=== PATIENT | female | born 1990 | race Caucasian/White ===

== ENCOUNTER 2018-02-12 16:45 | Emergency (ER) | payer OTHER ==
[2018-02-12] MEDS ORDERED: HYDROCODONE/APAP 5/325 MG TAB ONE (18:56)
[2018-02-12 19:10] LABS: Absolute Lymphocytes (CBC) 1.9 K/uL (0.7-4.9); Absolute Monocytes 0.8 K/uL (0.1-1.3); Absolute Neutrophil 8.8 K/uL (1.8-8.0); Basophils % 0.3 % (0-1.3); Eosinophils % 1.2 % (0-4.4); Hematocrit 37.8 % (36.0-45.0); Lymphocytes % 16.2 % (15.3-44.8); MCH 27.4 pg (27.0-35.0); MCV 85.5 fL (80-100); Monocytes % 6.6 % (3.3-12.3); RBC Red Blood Cell Count 4.42 M/uL (3.86-4.86)
[2018-02-12 19:43] LABS: ALT/SGPT 19 U/L (12-78); AST/SGOT 15 U/L (15-37); Albumin 3.2 g/dL (3.4-5.0); Alkaline Phosphatase 138 U/L (45-117); BUN Blood Urea Nitrogen 2 mg/dL (7-18); Bicarbonate 32 mmol/L (21-32); Bilirubin Direct < 0.1 mg/dL (0-0.2); Bilirubin Total 0.3 mg/dL (0.2-1.0); Glucose Level 111 mg/dL (74-106); Lipase 63 U/L (73-393); Potassium 3.6 mmol/L (3.5-5.1); Protein, Total 7.6 g/dL (6.4-8.2); Sodium Level 142 mmol/L (136-145)
[2018-02-12 19:58] LABS: Urine Blood TRACE (NEG); Urine Glucose NEGATIVE (NEG); Urine Protein NEGATIVE (NEG)
[2018-02-12 20:00] LABS: Urine Bacteria LOADED /HPF (<20); Urine Culture Reflex Order REFLEXED
[2018-02-12 20:01] LABS: Urine RBC <5 /HPF (NONE SEEN)
--- NOTE | 2018-02-12 20:26 | ER ---
Nurse's Notes [facility] Name: Shari Esterlla Age: 27 yrs Sex: Female : 1990 Arrival Date: 02/12/2018 Time: 16:48 Bed 16 Private MD: Diagnosis: Urinary tract infection, site not specified Presentation: 02/12 17:11 Presenting complaint: Patient states: Fever and N/V for 3 days. Patient reports aj multiple positive home tests, but reports that [facility] did blood work and ultrasound 2 days ago and found patient was not . Transition of care: patient was not received from another setting of care. Onset of symptoms was February 09, 2018. Risk Assessment: Do you want to hurt yourself or someone else? Patient reports no desire to harm self or others. Initial Sepsis Screen: Does the patient meet any 2 criteria? No. Patient's initial sepsis screen is negative. Does the patient have a suspected source of infection? No. Patient's initial sepsis screen is negative. Care prior to arrival: None. 17:11 Method Of Arrival: Wheelchair aj 17:11 Acuity: SAMAN 3 aj Triage Assessment: 17:14 General: Appears in no apparent distress. comfortable, Behavior is calm, cooperative, aj appropriate for age. Pain: Denies pain. Neuro: Level of Consciousness is awake, alert, obeys commands, Oriented to person, place, time, situation, Appropriate for age. Respiratory: Airway is patent Respiratory effort is even, unlabored, Respiratory pattern is regular, symmetrical. GI: Reports nausea, vomiting. Derm: Skin is intact, is healthy with good turgor, Skin is normal, Skin temperature is hot. 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 - Social history:: Smoking status: Patient/guardian denies using tobacco. - Ebola Screening: : Patient negative for fever greater than or equal to 101.5 degrees Fahrenheit, and additional compatible Ebola Virus Disease symptoms Patient denies exposure to infectious person Patient denies travel to an Ebola-affected area in the 21 days before illness onset No symptoms or risks identified at this time. Screenin:20 Abuse screen: Denies threats or abuse. Nutritional screening: No deficits noted. rb1 Tuberculosis screening: No symptoms or risk factors identified. Fall Risk None identified. Assessment: 17:20 General: Appears in no apparent distress. comfortable, Behavior is calm, cooperative, rb1 Reports fever for feeling ill for. Pain: Denies pain. Neuro: Level of Consciousness is awake, alert, obeys commands, Oriented to person, place, time, situation. Cardiovascular: Capillary refill < 3 seconds is brisk in bilateral fingers. Respiratory: Airway is patent Respiratory effort is even, unlabored, Respiratory pattern is regular, symmetrical. GI: Reports nausea, vomiting. : No signs and/or symptoms were reported regarding the genitourinary system. Derm: Skin is pink, warm \\T\\ dry. Musculoskeletal: pt. has spina-bifida. 17:20 General: pt. stated, "I went and had blood work done at [facility] 4 weeks and it came back rb1 saying that I was . I had an US done and it was negative for . I took 4 home tests and they were all positive.". 18:20 Reassessment: Patient appears in no apparent distress at this time. No changes from rb1 previously documented assessment. Updated on POC. 18:35 Reassessment: Called lab, spoke to Irene to come and draw blood. She stated, "I can come rb1 but it will be just a minute because I am alone right now.". 19:00 Reassessment: RECD REPORT FROM KAYDEN BRIZUELA. 27YO WF P/W FEVER/MALAISE/VOMITING AND H/O bp SPINA BIFIDA. UOP PENDING PT SELF CATH AND U/S IV PLACEMENT. PT SEEN AT [facility] AND GIVEN -U/S, BUT REPORTS MX +UPT AT HOME. 19:20 Reassessment: PER PROVIDER, PIV PLACEMENT ON HOLD PENDING LAB RESULTS. bp 20:02 Reassessment: ALL CURRENT ORDERS COMPLETED, UPT NEGATIVE ON POC, DISPO PENDING. bp 20:47 Reassessment: PT D/C HOME VIA W/C WITH FAMILY, DX WITH UTI. bp Vital Signs: 17:14 BP 143 / 102; Pulse 98; Resp 18; Temp 99.0; Pulse Ox 99% on R/A; Weight 38.56 kg (R); aj 18:09 BP 129 / 83; Pulse 94; Resp 19; Pulse Ox 100% ; rb1 19:10 BP 111 / 60; Pulse 95; Resp 16; Pulse Ox 100% ; bp 20:03 BP 114 / 80; Pulse 100; Resp 14; Pulse Ox 99% ; bp ED Course: 16:48 Patient arrived in ED. rg4 17:13 Triage completed. aj 17:14 Arm band placed on left wrist. Patient placed in an exam room. aj 17:20 Patient has correct armband on for positive identification. Bed in low position. Call rb1 light in reach. Side rails up X 1. Pulse ox on. NIBP on. 17:24 Ethan Bonilla PA is PHCP. jr8 17:24 Jose Jain MD is Attending Physician. jr8 17:26 Pepper Zuluaga, CHATA is Primary Nurse. rb1 18:05 Missed attempt(s): 22 gauge in left antecubital area. Bleeding controlled, band aid dh3 applied, catheter tip intact. 19:00 Report given to Juan Jose, CHATA. rb1 20:02 Juan Jose Irwin, RN is Primary Nurse. bp 20:48 No provider procedures requiring assistance completed. Patient did not have IV access bp during this emergency room visit. Administered Medications: 18:57 Drug: [place] 5 mg-325 mg 1 tabs Route: PO; rb1 19:09 Follow up: Response: Pain is decreased bp 20:50 Drug: Rocephin (cefTRIAXone) 1 grams Route: IM; Site: right gluteus; bp 20:51 Follow up: Response: No adverse reaction bp Outcome: 20:25 Discharge ordered by . jr8 20:48 Discharged to home via wheelchair, with family. bp 20:48 Condition: stable 20:48 Discharge instructions given to patient, family, Instructed on discharge instructions, follow up and referral plans. medication usage, Demonstrated understanding of instructions, follow-up care, medications, Prescriptions given X 2. 20:52 Patient left the ED. bp Addendum: 02/16/2018 08:04 Addendum: Culture Results: Positive urine culture. No further action required. Bacteria s s sensitive to prescribed antibiotic. Signatures: Zenaida Velazquez RN RN Laury Hurley RN RN Ethan Price PA PA jr8 Pepper Zuluaga RN RN rb1 Karen Lu rg4 Jacqui Deras 3 Juan Jose Irwin RN RN bp Corrections: (The following items were deleted from the chart) 02/12 19:21 19:00 Reassessment: RECD REPORT FROM CLAUDINE BRIZUELA. 27YO WF P/W FEVER/MALAISE/VOMITING AND bp H/O SPINA BIFIDA. UOP PENDING PT SELF CATH AND U/S IV PLACEMENT. PT SEEN AT [facility] AND GIVEN -U/S, BUT REPORTS MX +UPT AT HOME bp
--- NOTE | 2018-02-12 20:26 | EDPHYS ---
Physician Documentation [facility] Name: Shari Estrella Age: 27 yrs Sex: Female : 1990 Arrival Date: 02/12/2018 Time: 16:48 Bed 16 Private MD: ED Physician Jose Jain HPI: 02/12 18:24 This 27 yrs old Female presents to ER via Wheelchair with complaints of jr8 Fever, Vomiting. 18:24 The patient reports fever, not measured (subjective). Onset: The symptoms/episode jr8 began/occurred gradually, 3 day(s) ago. Modifying factors: there are no obvious modifying factors. Associated signs and symptoms: Pertinent positives: nausea, vomiting. Severity of symptoms: At their worst the symptoms were moderate in the emergency department the symptoms have improved. The patient has not experienced similar symptoms in the past. The patient has been recently seen by a physician:. Patient stated that she has been running fevers and has had n/v for 3 days. They thought it may be morning sickness. Has had tests showing both positive and negative. Had US done about 1 week ago with no intrauterine gestational sac seen. Denies abdominal discomfort. 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 - Social history:: Smoking status: Patient/guardian denies using tobacco. - Ebola Screening: : Patient negative for fever greater than or equal to 101.5 degrees Fahrenheit, and additional compatible Ebola Virus Disease symptoms Patient denies exposure to infectious person Patient denies travel to an Ebola-affected area in the 21 days before illness onset No symptoms or risks identified at this time. ROS: 18:24 Eyes: Negative for injury, pain, redness, and discharge, ENT: Negative for injury, jr8 pain, and discharge, Neck: Negative for injury, pain, and swelling, Cardiovascular: Negative for chest pain, palpitations, and edema, Respiratory: Negative for shortness of breath, cough, wheezing, and pleuritic chest pain, Back: Negative for injury and pain, MS/Extremity: Negative for injury and deformity, Skin: Negative for injury, rash, and discoloration, Neuro: Negative for headache, weakness, numbness, tingling, and seizure. 18:24 Constitutional: Positive for fever. 18:24 Abdomen/GI: Positive for nausea and vomiting, Negative for abdominal pain, diarrhea, abdominal distension, anorexia, dysphagia, hematemesis, black/tarry stool, rectal pain, rectal bleeding, bowel incontinence, flatulence. Exam: 18:24 Eyes: Pupils equal round and reactive to light, extra-ocular motions intact. Lids and jr8 lashes normal. Conjunctiva and sclera are non-icteric and not injected. Cornea within normal limits. Periorbital areas with no swelling, redness, or edema. ENT: Nares patent. No nasal discharge, no septal abnormalities noted. Tympanic membranes are normal and external auditory canals are clear. Oropharynx with no redness, swelling, or masses, exudates, or evidence of obstruction, uvula midline. Mucous membranes moist. Neck: Trachea midline, no thyromegaly or masses palpated, and no cervical lymphadenopathy. Supple, full range of motion without nuchal rigidity, or vertebral point tenderness. No Meningismus. Cardiovascular: Regular rate and rhythm with a normal S1 and S2. No gallops, murmurs, or rubs. Normal PMI, no JVD. No pulse deficits. Respiratory: Lungs have equal breath sounds bilaterally, clear to auscultation and percussion. No rales, rhonchi or wheezes noted. No increased work of breathing, no retractions or nasal flaring. Abdomen/GI: Soft, non-tender, with normal bowel sounds. No distension or tympany. No guarding or rebound. No evidence of tenderness throughout. Back: No spinal tenderness. No costovertebral tenderness. Full range of motion. Skin: Warm, dry with normal turgor. Normal color with no rashes, no lesions, and no evidence of cellulitis. open buttock wound with normal granulation tissue. No erythema or discharge from wound MS/ Extremity: Pulses equal, no cyanosis. Neurovascular intact. Full, normal range of motion. Neuro: Awake and alert, GCS 15, oriented to person, place, time, and situation. Cranial nerves II-XII grossly intact. Motor strength 5/5 in all extremities. Sensory grossly intact. Cerebellar exam normal. Normal gait. Vital Signs: 17:14 BP 143 / 102; Pulse 98; Resp 18; Temp 99.0; Pulse Ox 99% on R/A; Weight 38.56 kg (R); aj 18:09 BP 129 / 83; Pulse 94; Resp 19; Pulse Ox 100% ; rb1 19:10 BP 111 / 60; Pulse 95; Resp 16; Pulse Ox 100% ; bp 20:03 BP 114 / 80; Pulse 100; Resp 14; Pulse Ox 99% ; bp MDM: 17:24 Patient medically screened. jr8 20:24 Data reviewed: vital signs, nurses notes, lab test result(s), and as a result, I will jr8 discharge patient. Data interpreted: Pulse oximetry: on room air is 99 %. Interpretation: normal. Counseling: I had a detailed discussion with the patient and/or guardian regarding: the historical points, exam findings, and any diagnostic results supporting the discharge/admit diagnosis, lab results, the need for outpatient follow up, a family practitioner, to return to the emergency department if symptoms worsen or persist or if there are any questions or concerns that arise at home. 20:29 ED course: Patient with minimal elevation in WBC count. Able to tolerate PO fluids. No jr8 active vomiting here. No fever. Explained to family that there is no indication for admission at this point. Will give IM rocephin here and send home on antibiotics. After culture reports come back will adjust as needed. If worse to come back for further evaluation . 02/12 17:51 Order name: Basic Metabolic Panel; Complete Time: 20:23 02/12 17:51 Order name: CBC with Diff; Complete Time: 19:18 02/12 17:51 Order name: Hepatic Function; Complete Time: 20:23 02/12 17:51 Order name: Lipase; Complete Time: 20:23 02/12 17:51 Order name: Urine Microscopic Only; Complete Time: 20:23 02/12 17:51 Order name: Test, Serum; Complete Time: 20:23 02/12 19:35 Order name: Urine Dipstick--Ancillary (enter results); Complete Time: 20:23 ms 02/12 19:35 Order name: Urine --Ancillary (enter results); Complete Time: 20:23 ms 02/12 20:01 Order name: Urine Culture [facility] 02/12 17:51 Order name: Labs collected and sent; Complete Time: 19: 8 02/12 17:51 Order name: Urine Dipstick-Ancillary (obtain specimen); Complete Time: 19:19 8 02/12 17:51 Order name: Straight Cath - Urine; Complete Time: 19: Administered Medications: 18:57 Drug: [place] 5 mg-325 mg 1 tabs Route: PO; rb1 19:09 Follow up: Response: Pain is decreased bp 20:50 Drug: Rocephin (cefTRIAXone) 1 grams Route: IM; Site: right gluteus; bp 20:51 Follow up: Response: No adverse reaction bp Disposition: 02/13 06:57 Co-signature as Attending Physician, Jose Jain MD. rn Disposition: 02/12/18 20:25 Discharged to Home. Impression: Urinary tract infection, site not specified. - Condition is Stable. - Discharge Instructions: Urinary Tract Infection. - Prescriptions for Zofran 4 mg Oral Tablet - take 1 tablet by ORAL route every 12 hours As needed; 20 tablet. Macrobid 100 mg Oral Capsule - take 1 capsule by ORAL route every 12 hours for 7 days; 14 capsule. - Medication Reconciliation Form, Thank You Letter, Antibiotic Education, Prescription Opioid Use form. - Follow up: Private Physician; When: 5 - 6 days; Reason: Recheck today's complaints, Continuance of care, Re-evaluation by your physician. - Problem is new. - Symptoms have improved. Signatures: Dispatcher [employer] [facility] Zenaida Velazquez RN Jose Burris MD MD rn Roszak, Josh, PA PA jr8 Pepper Zuluaga RN RN rb1 Juan Jose Irwin RN RN bp Corrections: (The following items were deleted from the chart) 02/12 19:31 17:52 Creatinine for Radiology+C.LAB.BRZ ordered. [facility] EDSD 20:52 20:25 02/12/2018 20:25 Discharged to Home. Impression: Urinary tract infection, site bp not specified. Condition is Stable. Forms are Medication Reconciliation Form, Thank You Letter, Antibiotic Education, Prescription Opioid Use. Follow up: Private Physician; When: 5 - 6 days; Reason: Recheck today's complaints, Continuance of care, Re-evaluation by your physician. Problem is new. Symptoms have improved. jr8
[2018-02-12] MEDS ORDERED: CEFTRIAXONE 1000 MG/VIAL ONE (20:40)
[2018-02-12 21:10] VITALS: TEMP 99
[2018-02-12 21:13] VITALS: BP 114/80; O2SAT 99
== END 2018-02-12 20:52 | disposition home or self-care (01) ==
LOC: ER 16:45
DX: N39.0 Urinary tract infection, site not specified (principal); I10 Essential (primary) hypertension; Z88.1 Allergy status to other antibiotic agents; Z88.2 Allergy status to sulfonamides; Z88.8 Allergy status to other drugs, medicaments and biological substances; Z91.040 Latex allergy status
CPT/HCPCS: 80048; 80076; 81003; 81015; 81025; 83690; 84703; 85025; 87077; 87086; 87088; 87186; 96372; 99283

== ENCOUNTER 2018-02-15 15:04 | Emergency (ER) | payer OTHER ==
[2018-02-15] MEDS ORDERED: ONDANSETRON 4 MG (ODT) TAB ONE (16:04)
[2018-02-15] MEDS ORDERED: HYDROCODONE/APAP 5/325 MG TAB ONE (16:04)
[2018-02-15 16:40] LABS: Absolute Lymphocytes (CBC) 2.5 K/uL (0.7-4.9); Absolute Monocytes 0.8 K/uL (0.1-1.3); Absolute Neutrophil 4.8 K/uL (1.8-8.0); Basophils % 0.3 % (0-1.3); Eosinophils % 1.3 % (0-4.4); Hematocrit 37.6 % (36.0-45.0); Lymphocytes % 30.8 % (15.3-44.8); MCH 27.9 pg (27.0-35.0); MPV 7.9 fL (7.6-11.3); Monocytes % 9.6 % (3.3-12.3); RBC Red Blood Cell Count 4.42 M/uL (3.86-4.86)
[2018-02-15 17:51] LABS: ALT/SGPT 22 U/L (12-78); AST/SGOT 18 U/L (15-37); Albumin 3.5 g/dL (3.4-5.0); Alkaline Phosphatase 134 U/L (45-117); BUN Blood Urea Nitrogen 3 mg/dL (7-18); Bicarbonate 29 mmol/L (21-32); Bilirubin Total 0.2 mg/dL (0.2-1.0); Glucose Level 90 mg/dL (74-106); Potassium 4.2 mmol/L (3.5-5.1); Protein, Total 8.2 g/dL (6.4-8.2); Sodium Level 141 mmol/L (136-145)
--- NOTE | 2018-02-15 19:29 | EDPHYS ---
Physician Documentation [facility] Name: Shari Estrella Age: 27 yrs Sex: Female : 1990 Arrival Date: 02/15/2018 Time: 15:05 Bed 14 Private MD: ED Physician Eric Celestin HPI: 02/15 16:01 This 27 yrs old Female presents to ER via Ambulatory with complaints of pm1 Urinary Problem, Fever, Vomiting. 16:01 Onset: The symptoms/episode began/occurred 3 day(s) ago. Associated signs and symptoms: pm1 Pertinent positives: fever, vomiting, Pertinent negatives: abdominal pain, chest pain, dysuria, shortness of breath, Back pain. Modifying factors: The patient symptoms are alleviated by nothing, the patient symptoms are aggravated by nothing. The patient has experienced similar episodes in the past, multiple times. The patient has been recently seen at the [facility] Emergency Department, 2 days ago for the same complaint. 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 - Social history:: Smoking status: Patient/guardian denies using tobacco, Patient/guardian denies using alcohol. - Ebola Screening: : Patient negative for fever greater than or equal to 101.5 degrees Fahrenheit, and additional compatible Ebola Virus Disease symptoms Patient denies exposure to infectious person Patient denies travel to an Ebola-affected area in the 21 days before illness onset. ROS: 16:01 Eyes: Negative for injury, pain, redness, and discharge, ENT: Negative for injury, pm1 pain, and discharge, Neck: Negative for injury, pain, and swelling, Cardiovascular: Negative for chest pain, palpitations, and edema, Respiratory: Negative for shortness of breath, cough, wheezing, and pleuritic chest pain. 16:01 Back: Negative for injury and pain, : Negative for injury, bleeding, discharge, and swelling, MS/Extremity: Negative for injury and deformity, Skin: Negative for injury, rash, and discoloration, Neuro: Negative for headache, weakness, numbness, tingling, and seizure. 16:01 Constitutional: Positive for fever. 16:01 Abdomen/GI: Positive for nausea and vomiting, Negative for abdominal pain, diarrhea. Exam: 16:01 Constitutional: This is a well developed, well nourished patient who is awake, alert, pm1 and in no acute distress. Head/Face: Normocephalic, atraumatic. Eyes: Pupils equal round and reactive to light, extra-ocular motions intact. Lids and lashes normal. Conjunctiva and sclera are non-icteric and not injected. Cornea within normal limits. Periorbital areas with no swelling, redness, or edema. ENT: Nares patent. No nasal discharge, no septal abnormalities noted. Tympanic membranes are normal and external auditory canals are clear. Oropharynx with no redness, swelling, or masses, exudates, or evidence of obstruction, uvula midline. Mucous membranes moist. Neck: Trachea midline, no thyromegaly or masses palpated, and no cervical lymphadenopathy. Supple, full range of motion without nuchal rigidity, or vertebral point tenderness. No Meningismus. Chest/axilla: Normal chest wall appearance and motion. Nontender with no deformity. No lesions are appreciated. Cardiovascular: Regular rate and rhythm with a normal S1 and S2. No gallops, murmurs, or rubs. Normal PMI, no JVD. No pulse deficits. Respiratory: Lungs have equal breath sounds bilaterally, clear to auscultation and percussion. No rales, rhonchi or wheezes noted. No increased work of breathing, no retractions or nasal flaring. Abdomen/GI: Soft, non-tender, with normal bowel sounds. No distension or tympany. No guarding or rebound. No evidence of tenderness throughout. 16:01 Skin: Warm, dry with normal turgor. Normal color with no rashes, no lesions, and no evidence of cellulitis. MS/ Extremity: Pulses equal, no cyanosis. Neurovascular intact. Full, normal range of motion. 16:01 Back: pain, is absent, scoliosis that is marked, CVA tenderness, is absent, muscle spasm, is not present. 16:01 Neuro: Orientation: is normal, Motor: moves all fours. Vital Signs: 15:31 BP 137 / 96; Pulse 95; Resp 18; Temp 99.0(O); Pulse Ox 100% on R/A; Weight 36.29 kg; hj Height 3 ft. 6 in. (106.68 cm); Pain 5/10; 16:08 BP 135 / 95; Pulse 94; Resp 18; Pulse Ox 100% on R/A; hj 17:30 BP 112 / 72; Pulse 82; Resp 18; Pulse Ox 100% on R/A; hj 18:31 BP 112 / 71; Pulse 80; Resp 18; Pulse Ox 100% on R/A; hj 15:31 Body Mass Index 31.89 (36.29 kg, 106.68 cm) MDM: 15:41 Patient medically screened. pm1 16:01 Data reviewed: vital signs. Data interpreted: Pulse oximetry: on room air is 100 %. pm1 Interpretation: normal. 19:28 Counseling: I had a detailed discussion with the patient and/or guardian regarding: the pm1 historical points, exam findings, and any diagnostic results supporting the discharge/admit diagnosis, lab results, the need for outpatient follow up, to return to the emergency department if symptoms worsen or persist or if there are any questions or concerns that arise at home. 19:30 ED course: Patient without any episodes of vomiting in the emergency department. pm1 Patient labs improved from visit 2 days ago. Patient needs to continue taking macrobid. Urine culture results show sensitivity to macrobid. Will give patient phenergan. Patient has a prescription for zofran PRN. 02/15 15:55 Order name: CBC with Diff; Complete Time: 17:31 pm1 02/15 15:55 Order name: CMP; Complete Time: 17:52 pm1 02/15 15:55 Order name: IV Saline Lock; Complete Time: 17:46 pm1 02/15 15:55 Order name: PO challenge; Complete Time: 15:56 pm1 Administered Medications: 15:56 Drug: [place] 5 mg-325 mg 1 tabs Route: PO; 16:03 Follow up: Response: No adverse reaction; Pain is decreased 15:56 Drug: Zofran 4 mg Route: PO; 16:03 Follow up: Response: No adverse reaction Disposition: 02/15/18 19:29 Discharged to Home. Impression: Vomiting, Urinary tract infection, site not specified. - Condition is Stable. - Discharge Instructions: Urinary Tract Infection. - Prescriptions for Phenergan 25 mg Rectal Suppository - insert 1 suppository by RECTAL route every 6 hours As needed; 12 suppository. promethazine 25 mg Oral Tablet - take 1 tablet by ORAL route every 6 hours As needed; 20 tablet. - Medication Reconciliation Form, Thank You Letter, Antibiotic Education form. - Follow up: Emergency Department; When: As needed; Reason: Worsening of condition. Follow up: Private Physician; When: 2 - 3 days; Reason: Recheck today's complaints, Continuance of care, Re-evaluation by your physician. - Problem is new. - Symptoms have improved. - Notes: Continue taking the prescription of macrobid as directed Addendum: 02/17/2018 20:36 Co-signature as Attending Physician, Eric Celestin MD I agree with the assessment and k dr plan of care. Signatures: Dispatcher [employer] [facility] Eric Celestin MD MD [facility] Saúl Winn RN RN Williams Shelby NP [employer] pm1 Shell Pacheco RN RN ea Corrections: (The following items were deleted from the chart) 02/15 21:08 19:29 02/15/2018 19:29 Discharged to Home. Impression: Vomiting; Urinary tract ea infection, site not specified. Condition is Stable. Forms are Medication Reconciliation Form, Thank You Letter, Antibiotic Education, Prescription Opioid Use. Follow up: Emergency Department; When: As needed; Reason: Worsening of condition. Follow up: Private Physician; When: 2 - 3 days; Reason: Recheck today's complaints, Continuance of care, Re-evaluation by your physician. Problem is new. Symptoms have improved. pm1 02/16 04:26 02/15 19:30 ED course: Patient without any episodes of vomiting in the emergency pm1 department. Patient labs improved from visit 2 days ago. Patient needs to continue taking macrobid. Urine culture results Will give patient phenergan. Patient has a prescription for zofran PRN. pm1
--- NOTE | 2018-02-15 19:29 | ER ---
Nurse's Notes [facility] Name: Shari Estrella Age: 27 yrs Sex: Female : 1990 Arrival Date: 02/15/2018 Time: 15:05 Bed 14 Private MD: Diagnosis: Vomiting;Urinary tract infection, site not specified Presentation: 02/15 15:25 Presenting complaint: Patient states: i have UTI and was prescribed with antibiotics hj but im throwing it up; reports fever;. Transition of care: patient was not received from another setting of care. Onset of symptoms was February 15, 2018. Risk Assessment: Do you want to hurt yourself or someone else? Patient reports desire/thoughts of hurting themselves or someone else. Provider notified. Initial Sepsis Screen: Does the patient meet any 2 criteria? No. Patient's initial sepsis screen is negative. Does the patient have a suspected source of infection? Yes: Other: urine infection;. Care prior to arrival: None. 15:25 Method Of Arrival: Ambulatory hj 15:25 Acuity: SAMAN 3 hj 15:25 Acuity: SAMAN 3 hj Triage Assessment: 15:30 General: Appears in no apparent distress. uncomfortable, Behavior is calm, cooperative, hj appropriate for age. Pain: Complains of pain in pelvis. GI: Reports lower abdominal pain, nausea, vomiting. Historical: - Allergies: 15:29 Adhesives; hj 15:29 Bactrim; hj 15:29 Latex, Natural Rubber; hj 15:29 Sulfa (Sulfonamide Antibiotics); hj - Home Meds: 15:29 Atenolol Oral 1 tab once daily [Active]; losartan Oral 1 tab once daily [Active]; hj losartan Oral [Active]; meropenem intravenous [Active]; oxycodone [Active]; - PMHx: 15:29 Hypertension; spina-bifida; hj - PSHx: 15:29 SKIVER HEEL TAP shunt; Bladder suspension; spinal surgery; hj - Immunization history:: Adult Immunizations up to date. - Social history:: Smoking status: Patient/guardian denies using tobacco, Patient/guardian denies using alcohol. - Ebola Screening: : Patient negative for fever greater than or equal to 101.5 degrees Fahrenheit, and additional compatible Ebola Virus Disease symptoms Patient denies exposure to infectious person Patient denies travel to an Ebola-affected area in the 21 days before illness onset. Screenin:29 Abuse screen: Denies threats or abuse. Denies injuries from another. Nutritional hj screening: No deficits noted. Tuberculosis screening: No symptoms or risk factors identified. Fall Risk Secondary diagnosis (15 points) spina bifida. Assessment: 15:31 GI: Abdomen is non-distended. hj 15:32 Reassessment: see triage assessment;. hj 16:08 Reassessment: Patient and/or family updated on plan of care and expected duration. Pain hj level reassessed. Patient is alert, oriented x 3, equal unlabored respirations, skin warm/dry/pink. medicated;. 16:54 Reassessment: Patient and/or family updated on plan of care and expected duration. Pain hj level reassessed. Patient is alert, oriented x 3, equal unlabored respirations, skin warm/dry/pink. awaiting results and POC; family in room;. 17:30 Reassessment: Patient and/or family updated on plan of care and expected duration. Pain hj level reassessed. Patient is alert, oriented x 3, equal unlabored respirations, skin warm/dry/pink. awaiting POC;l. 18:31 Reassessment: Patient and/or family updated on plan of care and expected duration. Pain hj level reassessed. Patient is alert, oriented x 3, equal unlabored respirations, skin warm/dry/pink. family in room;. Vital Signs: 15:31 BP 137 / 96; Pulse 95; Resp 18; Temp 99.0(O); Pulse Ox 100% on R/A; Weight 36.29 kg; hj Height 3 ft. 6 in. (106.68 cm); Pain 5/10; 16:08 BP 135 / 95; Pulse 94; Resp 18; Pulse Ox 100% on R/A; hj 17:30 BP 112 / 72; Pulse 82; Resp 18; Pulse Ox 100% on R/A; hj 18:31 BP 112 / 71; Pulse 80; Resp 18; Pulse Ox 100% on R/A; hj 15:31 Body Mass Index 31.89 (36.29 kg, 106.68 cm) ED Course: 15:05 Patient arrived in ED. as 15:21 Saúl Winn RN is Primary Nurse. hj 15:27 Triage completed. hj 15:28 Williams Shelby NP is PHCP. pm1 15:28 Eric Celestin MD is Attending Physician. pm1 15:30 Arm band placed on. 15:31 Patient has correct armband on for positive identification. Placed in gown. Bed in low hj position. Call light in reach. Side rails up X 1. 16:14 missed attempt to collect labs by venipuncture 23G to right hand by me. 3 16:45 Initial lab(s) drawn, by me, sent to lab. Inserted saline lock: 24 gauge in left hj forearm, using aseptic technique. Blood collected. Administered Medications: 15:56 Drug: [place] 5 mg-325 mg 1 tabs Route: PO; hj 16:03 Follow up: Response: No adverse reaction; Pain is decreased 15:56 Drug: Zofran 4 mg Route: PO; hj 16:03 Follow up: Response: No adverse reaction Outcome: 19:29 Discharge ordered by . pm1 21:08 Patient left the ED. mere Signatures: Earl Fagan RN Yuliya Wyatt Henry, RN RN Williams Shelby NP NURSING PROFESSOR pm1 Jacqui Deras [facility] Shell Pacheco RN RN ea
[2018-02-15 21:18] VITALS: O2SAT 100
[2018-02-15 21:20] VITALS: TEMP 99
[2018-02-15 21:22] VITALS: BP 112/71
== END 2018-02-15 21:08 | disposition home or self-care (01) ==
LOC: ER 15:04
DX: N39.0 Urinary tract infection, site not specified (principal); R11.10 Vomiting, unspecified; I10 Essential (primary) hypertension; Z88.1 Allergy status to other antibiotic agents; Z88.2 Allergy status to sulfonamides; Z91.040 Latex allergy status; Z91.048 Other nonmedicinal substance allergy status
CPT/HCPCS: 36415; 80053; 85025; 99283

== ENCOUNTER 2018-03-14 12:39 | Emergency (ER) | payer OTHER ==
[2018-03-14 13:23] LABS: Urine Blood 2+ (NEG); Urine Glucose NEGATIVE (NEG); Urine Protein NEGATIVE (NEG); Urine pH 8.5 (5.0-7.0)
[2018-03-14 13:31] LABS: Urine Bacteria <20 /HPF (<20); Urine Culture Reflex Order NOT NEEDED; Urine Mucus 1+ /HPF (NONE SEEN)
--- NOTE | 2018-03-14 13:45 | EDPHYS ---
Physician Documentation [facility] Name: Shari Estrella Age: 27 yrs Sex: Female : 1990 Arrival Date: 03/14/2018 Time: 12:42 Bed 13 Private MD: ED Physician Jose Jain HPI: 03/14 13:40 This 27 yrs old Female presents to ER via Wheelchair with complaints of rn Fever, Vomiting. 13:40 The patient reports fever, not measured (subjective). Onset: The symptoms/episode rn began/occurred at an unknown time. Modifying factors: there are no obvious modifying factors. Severity of symptoms: At their worst the symptoms were mild in the emergency department the symptoms are unchanged. The patient has experienced similar episodes in the past. Reports has spina bifida, self caths, reports subjective fever and vomiting over last few days, thinks has UTI, dark urine, states doesn't feel like recovered fully from UTI last month.. 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 - Social history:: Smoking status: Patient/guardian denies using tobacco. - Ebola Screening: : Patient negative for fever greater than or equal to 101.5 degrees Fahrenheit, and additional compatible Ebola Virus Disease symptoms Patient denies exposure to infectious person Patient denies travel to an Ebola-affected area in the 21 days before illness onset No symptoms or risks identified at this time. - Family history:: not pertinent. - Hospitalizations: : No recent hospitalization is reported. 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 Exam: 13:40 Constitutional: This is a well developed, well nourished patient who is awake, alert, rn and in no acute distress. Abdomen/GI: Soft, non-tender, with normal bowel sounds. No distension or tympany. No guarding or rebound. No evidence of tenderness throughout. Back: No spinal tenderness. No costovertebral tenderness. Full range of motion. Vital Signs: 12:48 BP 148 / 102; Pulse 89; Resp 18; Temp 98.5; Pulse Ox 97% on R/A; Weight 38.56 kg; aj 13:59 BP 135 / 89; Pulse 85; Resp 18; Pulse Ox 100% on R/A; la1 MDM: 12:50 Patient medically screened. rn 13:40 Differential diagnosis: UTI. Data reviewed: vital signs, nurses notes, lab test rn result(s), and as a result, I will discharge patient. Counseling: I had a detailed discussion with the patient and/or guardian regarding: the historical points, exam findings, and any diagnostic results supporting the discharge/admit diagnosis, the need for outpatient follow up, to return to the emergency department if symptoms worsen or persist or if there are any questions or concerns that arise at home. Special discussion: I discussed with the patient/guardian in detail that at this point there is no indication for admission to the hospital. It is understood, however, that if the symptoms persist or worsen the patient needs to return immediately for re-evaluation. 13:40 ED course: Last 2 urine cultures show susceptible to augmentin and macrobid.. rn 03/14 12:59 Order name: Urine Microscopic Only; Complete Time: 13:35 rn 03/14 12:59 Order name: Urine Culture rn 03/14 12:59 Order name: Urine Dipstick-Ancillary (obtain specimen); Complete Time: 13:56 rn 03/14 13:16 Order name: Urine Dipstick--Ancillary (enter results); Complete Time: 13:35 bd 03/14 13:16 Order name: Urine --Ancillary (enter results); Complete Time: 13:35 bd 03/14 12:59 Order name: Urine Test (obtain specimen); Complete Time: 13:56 rn Administered Medications: 13:55 Drug: Zofran 4 mg Route: PO; 13:55 Follow up: Response: No adverse reaction; Nausea is decreased Disposition: 03/14/18 13:45 Discharged to Home. Impression: Urinary tract infection, site not specified. - Condition is Stable. - Discharge Instructions: Urinary Tract Infection, Adult. - Prescriptions for Zofran ODT 4 mg Oral tablet,disintegrating - place 1 tablet by TRANSLINGUAL route every 8-10 hours As needed; 20 tablet. Augmentin 875- 125 mg Oral Tablet - take 1 tablet by ORAL route every 12 hours for 10 days; 20 tablet. Macrobid 100 mg Oral Capsule - take 1 capsule by ORAL route every 12 hours for 10 days; 20 capsule. - Medication Reconciliation Form, Thank You Letter, Antibiotic Education, Prescription Opioid Use form. - Follow up: Private Physician; When: As needed; Reason: Recheck today's complaints, Re-evaluation by your physician. - Problem is new. - Symptoms have improved. Signatures: Dispatcher [employer] EDMS Leatha Lofton RN RN ch Myers, Amanda, RN RN aj Nieto, Roman, MD MD rn Joaquin, Henry, RN RN hj Corrections: (The following items were deleted from the chart) 14:00 13:45 03/14/2018 13:45 Discharged to Home. Impression: Urinary tract infection, site ch not specified. Condition is Stable. Forms are Medication Reconciliation Form, Thank You Letter, Antibiotic Education, Prescription Opioid Use. Follow up: Private Physician; When: As needed; Reason: Recheck today's complaints, Re-evaluation by your physician. Problem is new. Symptoms have improved. rn
--- NOTE | 2018-03-14 13:45 | ER ---
Nurse's Notes [facility] Name: Shari Estrella Age: 27 yrs Sex: Female : 1990 Arrival Date: 03/14/2018 Time: 12:42 Bed 13 Private MD: Diagnosis: Urinary tract infection, site not specified Presentation: 03/14 12:47 Presenting complaint: Patient states: "I have a UTI for 2 days". Transition of care: aj patient was not received from another setting of care. Onset of symptoms was March 12, 2018. Risk Assessment: Do you want to hurt yourself or someone else? Patient reports no desire to harm self or others. Initial Sepsis Screen: Does the patient meet any 2 criteria? No. Patient's initial sepsis screen is negative. Does the patient have a suspected source of infection? No. Patient's initial sepsis screen is negative. Care prior to arrival: None. 12:47 Method Of Arrival: Wheelchair 12:47 Acuity: SAMAN 4 aj Triage Assessment: 12:48 General: Appears in no apparent distress. comfortable, Behavior is calm, cooperative, aj appropriate for age. Pain: Denies pain. Neuro: Level of Consciousness is awake, alert, obeys commands, Oriented to person, place, time, situation, Appropriate for age. Respiratory: Airway is patent Respiratory effort is even, unlabored, Respiratory pattern is regular, symmetrical. GI: Reports nausea. Derm: Skin is intact, is healthy with good turgor, Skin is pink, warm \\T\\ dry. normal. 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 - Social history:: Smoking status: Patient/guardian denies using tobacco. - Ebola Screening: : Patient negative for fever greater than or equal to 101.5 degrees Fahrenheit, and additional compatible Ebola Virus Disease symptoms Patient denies exposure to infectious person Patient denies travel to an Ebola-affected area in the 21 days before illness onset No symptoms or risks identified at this time. - Family history:: not pertinent. - Hospitalizations: : No recent hospitalization is reported. Screenin:26 Abuse screen: Denies threats or abuse. Denies injuries from another. Nutritional ch screening: No deficits noted. Tuberculosis screening: No symptoms or risk factors identified. Fall Risk None identified. Assessment: 13:26 Reassessment: Patient appears in no apparent distress at this time. Patient and/or ch family updated on plan of care and expected duration. Pain level reassessed. Patient is alert, oriented x 3, equal unlabored respirations, skin warm/dry/pink. Respiratory: No deficits noted. GI: Abdomen is round non-distended. : No signs and/or symptoms were reported regarding the genitourinary system. Derm: Skin is pink, warm \\T\\ dry. Vital Signs: 12:48 BP 148 / 102; Pulse 89; Resp 18; Temp 98.5; Pulse Ox 97% on R/A; Weight 38.56 kg; aj 13:59 BP 135 / 89; Pulse 85; Resp 18; Pulse Ox 100% on R/A; la1 ED Course: 12:42 Patient arrived in ED. rg4 12:47 Triage completed. aj 12:48 Arm band placed on left wrist. Patient placed in an exam room. aj 12:50 Jose Jain MD is Attending Physician. rn 12:53 Leatha Lofton RN is Primary Nurse. 13:26 Patient has correct armband on for positive identification. Placed in gown. Bed in low ch position. Call light in reach. Side rails up X 1. Adult w/ patient. 13:26 No provider procedures requiring assistance completed. ch 13:59 Patient did not have IV access during this emergency room visit. la1 Administered Medications: 13:55 Drug: Zofran 4 mg Route: PO; hj 13:55 Follow up: Response: No adverse reaction; Nausea is decreased hj Outcome: 13:45 Discharge ordered by . rn 13:59 Discharged to home via wheelchair, with family. la1 13:59 Condition: stable 13:59 Discharge instructions given to patient, family, Instructed on discharge instructions, follow up and referral plans. medication usage, Demonstrated understanding of instructions, follow-up care, medications, Prescriptions given X 3. 14:00 Patient left the ED. Addendum: 03/17/2018 07:37 Addendum: Culture Results: Positive urine culture. No further action required. Bacteria h b sensitive to prescribed antibiotic. Signatures: Leatha Lofton RN RN ch Myers, Amanda, RN RN aj Nieto, Roman, MD MD rn Attema, Lee, RN RN la1 Saúl Winn RN RN Eli Lewis RN RN hb Garcia, Rubi rg4
[2018-03-14] MEDS ORDERED: ONDANSETRON 4 MG (ODT) TAB ONE (14:01)
[2018-03-14 14:22] VITALS: TEMP 98.5
[2018-03-14 14:23] VITALS: BP 135/89; O2SAT 100
== END 2018-03-14 14:00 | disposition home or self-care (01) ==
LOC: ER 12:39
DX: N39.0 Urinary tract infection, site not specified (principal); Z88.1 Allergy status to other antibiotic agents; Z91.040 Latex allergy status; Z88.2 Allergy status to sulfonamides; Z91.048 Other nonmedicinal substance allergy status; I10 Essential (primary) hypertension; Q05.9 Spina bifida, unspecified
CPT/HCPCS: 81003; 81015; 81025; 87077; 87086; 87088; 87186; 99283

== ENCOUNTER 2018-07-09 20:21 | Emergency (ER) | payer OTHER ==
--- OUTSIDE RECORDS SUMMARY | 2018-07-09 20:23 | XMS REPORT ---
:1990 [facility] Address [address] [place] [address] Dr. Chavarria [address] [place] [id number] Care Team Providers Name Role Phone Unavailable Unavailable Unavailable Problems This patient has no known problems. Allergies, Adverse Reactions, Alerts This patient has no known allergies or adverse reactions. Medications This patient has no known medications.
--- NOTE | 2018-07-09 22:09 | RAD REPORT ---
EXAM DESCRIPTION: CT - Head C Spine Mpr Wo Con - 07/09/2018 9:54 pm CLINICAL HISTORY: Head and neck injury status post fall. Head and neck pain COMPARISON: Head CT 2016 TECHNIQUE: Computed axial tomography of the head and cervical spine was obtained. Sagittal and coronal reconstruction was performed. All CT scans are performed using dose optimization technique as appropriate and may include automated exposure control or mA/KV adjustment according to patient size. 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 Right ventriculostomy tube are unchanged in position. An intracranial bleed is not seen. The ventricles are mildly diminished in caliber. An extra-axial fl uid collection is not noted.Fluid within the visualized sinuses and mastoids is not seen A cervical fracture is not visualized. No dislocation is noted. 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 A cervical fracture is not visualized. If the patient continues to have symptoms to suggest intracra nial /spinal cord pathology then MRI would be recommended
--- NOTE | 2018-07-09 22:47 | EDPHYS ---
Physician Documentation [facility] Name: Shari Estrelal Age: 28 yrs Sex: Female : 1990 Arrival Date: 07/09/2018 Time: 20:25 Bed 17 Private MD: ED Physician Carlos Trotter HPI: 07/09 22:33 This 28 yrs old Female presents to ER via Wheelchair with complaints of Head wa Injury-Adult, Fall Injury. 22:33 The patient or guardian reports injury. The complaints affect the face. 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 - Ebola Screening: : Patient negative for fever greater than or equal to 101.5 degrees Fahrenheit, and additional compatible Ebola Virus Disease symptoms Patient denies exposure to infectious person Patient denies travel to an Ebola-affected area in the 21 days before illness onset No symptoms or risks identified at this time. - Social history:: Smoking status: Patient/guardian denies using tobacco, never smoked. - Family history:: not pertinent. - Hospitalizations: : No recent hospitalization is reported. ROS: 22:41 Constitutional: Negative for fever, chills, and weight loss, Eyes: Negative for injury, wa pain, redness, and discharge, ENT: Negative for injury, pain, and discharge, Neck: Negative for injury, pain, and swelling, Cardiovascular: Negative for chest pain, palpitations, and edema, Respiratory: Negative for shortness of breath, cough, wheezing, and pleuritic chest pain, Abdomen/GI: Negative for abdominal pain, nausea, vomiting, diarrhea, and constipation, Back: Negative for injury and pain, : Negative for injury, bleeding, discharge, and swelling, MS/Extremity: Negative for injury and deformity, Skin: Negative for injury, rash, and discoloration, Psych: Negative for depression, anxiety, suicide ideation, homicidal ideation, and hallucinations. 22:41 Neuro: Positive for Negative for altered mental status, dizziness, gait disturbance, headache, loss of consciousness, weakness. 22:41 All other systems are negative. Exam: 22:41 Constitutional: This is a well developed, well nourished patient who is awake, alert, wa and in no acute distress. Eyes: Pupils equal round and reactive to light, extra-ocular motions intact. Lids and lashes normal. Conjunctiva and sclera are non-icteric and not injected. Cornea within normal limits. Periorbital areas with no swelling, redness, or edema. ENT: Nares patent. No nasal discharge, no septal abnormalities noted. Tympanic membranes are normal and external auditory canals are clear. Oropharynx with no redness, swelling, or masses, exudates, or evidence of obstruction, uvula midline. Mucous membranes moist. Neck: Trachea midline, no thyromegaly or masses palpated, and no cervical lymphadenopathy. Supple, full range of motion without nuchal rigidity, or vertebral point tenderness. No Meningismus. Chest/axilla: Normal chest wall appearance and motion. Nontender with no deformity. No lesions are appreciated. Cardiovascular: Regular rate and rhythm with a normal S1 and S2. No gallops, murmurs, or rubs. Normal PMI, no JVD. No pulse deficits. Respiratory: Lungs have equal breath sounds bilaterally, clear to auscultation and percussion. No rales, rhonchi or wheezes noted. No increased work of breathing, no retractions or nasal flaring. Abdomen/GI: Soft, non-tender, with normal bowel sounds. No distension or tympany. No guarding or rebound. No evidence of tenderness throughout. Back: No spinal tenderness. No costovertebral tenderness. Full range of motion. Skin: Warm, dry with normal turgor. Normal color with no rashes, no lesions, and no evidence of cellulitis. MS/ Extremity: Pulses equal, no cyanosis. Neurovascular intact. Full, normal range of motion. Neuro: Awake and alert, GCS 15, oriented to person, place, time, and situation. Cranial nerves II-XII grossly intact. Motor strength 5/5 in all extremities. Sensory grossly intact. Cerebellar exam normal. Normal gait. Psych: Awake, alert, with orientation to person, place and time. Behavior, mood, and affect are within normal limits. 22:41 Head/face: Exam is negative for acute changes, obvious evidence of injury or deformity, Noted is erythema, of the nose. Vital Signs: 20:34 BP 140 / 92; Pulse 119; Resp 18; Temp 98.1; Pulse Ox 97% on R/A; Weight 35.83 kg (R); ak1 Height 5 ft. (152.40 cm); Pain 5/10; 22:32 BP 138 / 90; Pulse 104; Resp 16; Pulse Ox 98% on R/A; Pain 0/10; ls4 20:34 Body Mass Index 15.43 (35.83 kg, 152.40 cm) ak1 Roselyn Coma Score: 20:32 Eye Response: spontaneous(4). Verbal Response: oriented(5). Motor Response: obeys ak1 commands(6). Total: 15. MDM: 21:06 Patient medically screened. wa 22:42 Differential diagnosis: h/o paraplegia, wheelchair bound. per family, fell face forward wa when hit a bump while in the wheelchair. pt's chair has no belt to hold her in when in motion. Data reviewed: vital signs, nurses notes. ED course: head and c-spine CT to eval shunt integrity and r/o acute findings. 22:45 Test interpretation: by ED physician or midlevel provider: Head CT: no acute process. wa c-spine CT: no acute process. Response to treatment: the patient's symptoms have markedly improved after treatment. 07/09 21:22 Order name: CT Head C Spine; Complete Time: 22:16 wa Administered Medications: No medications were administered Disposition: 07/09/18 22:47 Discharged to Home. Impression: fall. , Facial Injury. - Condition is Stable. - Discharge Instructions: Head Injury, Adult, [id number]. - Medication Reconciliation Form, Thank You Letter, Antibiotic Education, Prescription Opioid Use form. - Follow up: Private Physician; When: 1 - 2 days; Reason: Recheck today's complaints. - Problem is new. - Symptoms have improved. - Notes: please secure her in place in the wheelchair while in motion or this will happen again. Signatures: Dispatcher [employer] Krystal Ge, RN RN ak1 Carlos Trotter MD MD wa Stewart, Lisa RN RN ls4 Corrections: (The following items were deleted from the chart) 22:55 22:47 07/09/2018 22:47 Discharged to Home. Impression: fall. ; Facial Injury. Condition ls4 is Stable. Forms are Medication Reconciliation Form, Thank You Letter, Antibiotic Education, Prescription Opioid Use. Follow up: Private Physician; When: 1 - 2 days; Reason: Recheck today's complaints. Problem is new. Symptoms have improved. laina
--- NOTE | 2018-07-09 22:47 | ER ---
Nurse's Notes [facility] Name: Shari Estrella Age: 28 yrs Sex: Female : 1990 Arrival Date: 07/09/2018 Time: 20:25 Bed 17 Private MD: Diagnosis: fall. ;Facial Injury Presentation: 07/09 20:32 Presenting complaint: Patient states: fell from wheelchair on street. pt denies LOC, ak1 denies N/V. pt with shunt in place, mother concerned. pt legs were twisted under her during fall, mother concerned pt with fx to bilateral legs. pt c/o only of nose pain. pt with abrasions to nose and left side of head. Transition of care: patient was not received from another setting of care. Mechanism of Injury: resulted from a fall. Onset of symptoms was July 09, 2018. Risk Assessment: Do you want to hurt yourself or someone else? Patient reports no desire to harm self or others. Initial Sepsis Screen: Does the patient meet any 2 criteria? No. Patient's initial sepsis screen is negative. Does the patient have a suspected source of infection? No. Patient's initial sepsis screen is negative. Care prior to arrival: None. 20:32 Method Of Arrival: Wheelchair ak1 20:32 Acuity: SAMAN 3 ak1 Triage Assessment: 20:34 General: Appears in no apparent distress. Behavior is calm, cooperative. Neuro: Level ak1 of Consciousness is awake, alert, obeys commands, Oriented to person, place, time, situation, Speech is normal. 21:42 Neuro: Reports denies headache, dizziness,nausea, vomiting. . 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 - Ebola Screening: : Patient negative for fever greater than or equal to 101.5 degrees Fahrenheit, and additional compatible Ebola Virus Disease symptoms Patient denies exposure to infectious person Patient denies travel to an Ebola-affected area in the 21 days before illness onset No symptoms or risks identified at this time. - Social history:: Smoking status: Patient/guardian denies using tobacco, never smoked. - Family history:: not pertinent. - Hospitalizations: : No recent hospitalization is reported. Screenin:50 Abuse screen: Denies threats or abuse. Denies injuries from another. Nutritional ls4 screening: No deficits noted. Tuberculosis screening: No symptoms or risk factors identified. Fall Risk Fall in past 12 months (25 points). Secondary diagnosis (15 points) No IV (0 pts). Ambulatory Aid- None/Bed Rest/Nurse Assist (0 pts). Gait- Normal/Bed Rest/Wheelchair (0 pts) Mental Status- Oriented to own ability (0 pts). Total Aburto Fall Scale indicates Low Risk Score (25-44 pts). Fall prevention measures have been instituted. Side Rails Up X 2 Placed close to Nursing Station Frequent Obs/Assesments occuring Family Present and informed to notify staff if they need to leave bedside As available Patient and Family Educated on Fall Prevention Program and strategies. Assessment: 20:48 General: Appears in no apparent distress. Behavior is calm, cooperative. Pain: Denies ls4 pain. Neuro: No deficits noted. Cardiovascular: No deficits noted. Respiratory: No deficits noted. GI: No deficits noted. : No deficits noted. Derm: ABRASION TO NOSE. Musculoskeletal: Parent/caregiver report the patient having PT CANNOT FEEL LEGS SO CONCERNED THAT PT MAY HAVE HURT LEGS AND CANT FEEL THAT. 21:41 Reassessment: Patient appears in no apparent distress at this time. Patient and/or ls4 family updated on plan of care and expected duration. Pain level reassessed. Patient is alert, oriented x 3, equal unlabored respirations, skin warm/dry/pink. General: Appears in no apparent distress. 22:32 Reassessment: Patient appears in no apparent distress at this time. Patient and/or ls4 family updated on plan of care and expected duration. Pain level reassessed. Patient is alert, oriented x 3, equal unlabored respirations, skin warm/dry/pink. Vital Signs: 20:34 BP 140 / 92; Pulse 119; Resp 18; Temp 98.1; Pulse Ox 97% on R/A; Weight 35.83 kg (R); ak1 Height 5 ft. (152.40 cm); Pain 5/10; 22:32 BP 138 / 90; Pulse 104; Resp 16; Pulse Ox 98% on R/A; Pain 0/10; ls4 20:34 Body Mass Index 15.43 (35.83 kg, 152.40 cm) ak1 Roselyn Coma Score: 20:32 Eye Response: spontaneous(4). Verbal Response: oriented(5). Motor Response: obeys ak1 commands(6). Total: 15. ED Course: 20:25 Patient arrived in ED. ds1 20:33 Triage completed. ak1 20:34 Arm band placed on Patient placed in an exam room, Patient notified of wait time. ak1 20:48 Katina Nice, RN is Primary Nurse. ls4 20:50 No apparent distress. Awaiting ED provider evaluation. ls4 20:50 Patient has correct armband on for positive identification. Allergy band placed. Fall ls4 risk band placed. Call light in reach. Side rails up X2. Adult w/ patient. Warm blanket given. 20:50 No provider procedures requiring assistance completed. ls4 21:06 Carlos Trotter MD is Attending Physician. dc 21:53 CT Head C Spine In Process Unspecified. EDNM 21:54 CT completed. Patient tolerated procedure well. Patient moved to [place]. Patient moved back [place] from CT. 22:55 Patient did not have IV access during this emergency room visit. ls4 Administered Medications: No medications were administered Outcome: 22:47 Discharge ordered by . wa 22:53 Discharged to home via wheelchair. ls4 22:53 Condition: stable 22:53 Discharge instructions given to patient, family, Instructed on discharge instructions, follow up and referral plans. medication usage, safety practices, Demonstrated understanding of instructions, follow-up care, wound care. 22:55 Patient left the ED. ls4 Signatures: Dispatcher [employer] EDNM EdwardsBrielle davis ds1 Krystal Frank RN RN ak Jeffery, Robert nj Sergo, Carlos, MD MD wa [place], Katina, RN RN ls4
[2018-07-09 23:48] VITALS: TEMP 98.1
[2018-07-09 23:50] VITALS: BP 138/90; O2SAT 98
== END 2018-07-09 22:55 | disposition home or self-care (01) ==
LOC: ER 20:21
DX: S09.93XA Unspecified injury of face, initial encounter (principal); V00.811A Fall from moving wheelchair (powered), initial encounter; Q05.9 Spina bifida, unspecified; I10 Essential (primary) hypertension; Z79.899 Other long term (current) drug therapy
CPT/HCPCS: 70450; 72125; 99284

== ENCOUNTER 2019-07-28 20:24 | Inpatient (IN) | payer OTHER ==
--- OUTSIDE RECORDS SUMMARY | 2019-07-28 20:26 | XMS REPORT ---
:1990 Author [facility] Address [facility], [address] Chavarria [address] [place] [id number] Care Team Providers Name Role Phone Unavailable Unavailable Unavailable Problems This patient has no known problems. Allergies, Adverse Reactions, Alerts This patient has no known allergies or adverse reactions. Medications This patient has no known medications.
[2019-07-28 21:21] LABS: Urine Bacteria 20-50 /HPF (<20); Urine Culture Reflex Order NOT NEEDED; Urine Mucus 1+ /HPF (NONE SEEN); Urine RBC <5 /HPF (NONE SEEN)
[2019-07-28 21:21] LABS: Urine Blood NEGATIVE (NEG); Urine Glucose NEGATIVE (NEG); Urine Protein NEGATIVE (NEG); Urine Specific Gravity <1.005 (1.005-1.030); Urine pH 6.5 (5.0-7.0)
[2019-07-28] MEDS ORDERED: NA CHLORIDE 0.9% 1,000 ML ONE (22:25)
[2019-07-28] MEDS ORDERED: Meropenem 1 GM/100 ML BAG ONE (22:25)
--- NOTE | 2019-07-28 22:41 | EDPHYS ---
Physician Documentation [facility] Name: Shari Estrella Age: 29 yrs Sex: Female : 1990 Arrival Date: 07/28/2019 Time: 20:27 Bed 28 Private MD: ED Physician Joel Ariza HPI: 07/28 22:36 This 29 yrs old Female presents to ER via Wheelchair with complaints of Pain ira With Urination. 22:36 The patient presents with abdominal pain in the lower abdomen, abdominal distention in ira the upper abdomen, in the lower abdomen. Onset: The symptoms/episode began/occurred 1 day(s) ago. The patient complains of pain in the low back area, left mid back, right mid back and right low back. The pain does not radiate. Onset: The symptoms/episode began/occurred 2 day(s) ago. Modifying factors: The symptoms are alleviated by nothing. the symptoms are aggravated by nothing. The patient presents to the emergency department with nausea, vomiting. Possible causes: uiti, pyelo. 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 - Social history:: Smoking status: Patient/guardian denies using tobacco. - Ebola Screening: : Patient denies travel to an Ebola-affected area in the 21 days before illness onset. - Family history:: not pertinent. ROS: 22:36 Constitutional: Negative for fever, chills, and weight loss, Eyes: Negative for injury, ira pain, redness, and discharge, ENT: Negative for injury, pain, and discharge, Neck: Negative for injury, pain, and swelling, Cardiovascular: Negative for chest pain, palpitations, and edema, Respiratory: Negative for shortness of breath, cough, wheezing, and pleuritic chest pain, Back: Negative for injury and pain, : Negative for injury, bleeding, discharge, and swelling, MS/Extremity: Negative for injury and deformity, Skin: Negative for injury, rash, and discoloration, Neuro: Negative for headache, weakness, numbness, tingling, and seizure, Psych: Negative for depression, anxiety, suicide ideation, homicidal ideation, and hallucinations, Allergy/Immunology: Negative for hives, rash, and allergies, Endocrine: Negative for neck swelling, polydipsia, polyuria, polyphagia, and marked weight changes, Hematologic/Lymphatic: Negative for swollen nodes, abnormal bleeding, and unusual bruising. 22:36 Abdomen/GI: Positive for abdominal pain, nausea, vomiting. Exam: 22:36 Constitutional: This is a well developed, well nourished patient who is awake, alert, ira and in no acute distress. Head/Face: Normocephalic, atraumatic. Eyes: Pupils equal round and reactive to light, extra-ocular motions intact. Lids and lashes normal. Conjunctiva and sclera are non-icteric and not injected. Cornea within normal limits. Periorbital areas with no swelling, redness, or edema. ENT: Nares patent. No nasal discharge, no septal abnormalities noted. Tympanic membranes are normal and external auditory canals are clear. Oropharynx with no redness, swelling, or masses, exudates, or evidence of obstruction, uvula midline. Mucous membranes moist. Neck: Trachea midline, no thyromegaly or masses palpated, and no cervical lymphadenopathy. Supple, full range of motion without nuchal rigidity, or vertebral point tenderness. No Meningismus. Chest/axilla: Normal chest wall appearance and motion. Nontender with no deformity. No lesions are appreciated. Cardiovascular: Regular rate and rhythm with a normal S1 and S2. No gallops, murmurs, or rubs. Normal PMI, no JVD. No pulse deficits. Respiratory: Lungs have equal breath sounds bilaterally, clear to auscultation and percussion. No rales, rhonchi or wheezes noted. No increased work of breathing, no retractions or nasal flaring. Abdomen/GI: Soft, non-tender, with normal bowel sounds. No distension or tympany. No guarding or rebound. No evidence of tenderness throughout. Back: No spinal tenderness. No costovertebral tenderness. Full range of motion. Skin: Warm, dry with normal turgor. Normal color with no rashes, no lesions, and no evidence of cellulitis. MS/ Extremity: Pulses equal, no cyanosis. Neurovascular intact. Full, normal range of motion. Neuro: Awake and alert, GCS 15, oriented to person, place, time, and situation. Cranial nerves II-XII grossly intact. Motor strength 5/5 in all extremities. Sensory grossly intact. Cerebellar exam normal. Normal gait. Psych: Awake, alert, with orientation to person, place and time. Behavior, mood, and affect are within normal limits. Vital Signs: 20:34 BP 131 / 101; Pulse 108; Resp 20; Temp 97.5; Pulse Ox 99% on R/A; Weight 29.48 kg (R); [facility] Height 4 ft. 0 in. (121.92 cm) (R); Pain 8/10; 07/29 00:48 BP 128 / 96; Pulse 97; Resp 18; Pulse Ox 100% on R/A; rv 07/28 20:34 Body Mass Index 19.83 (29.48 kg, 121.92 cm) [facility] MDM: 07/28 21:13 Patient medically screened. [facility] 07/28 20:46 Order name: Urine Microscopic Only; Complete Time: 22:14 [facility] 07/28 20:46 Order name: Urine Culture [facility] 07/28 20:56 Order name: Urine Dipstick--Ancillary (enter results); Complete Time: 22:14 [facility] 07/28 20:56 Order name: Urine --Ancillary (enter results); Complete Time: 22:14 [facility] 07/28 22:16 Order name: Basic Metabolic Panel; Complete Time: 23:09 [facility] 07/28 22:16 Order name: CBC with Diff; Complete Time: 23:09 [facility] 07/28 22:16 Order name: Creatinine for Radiology; Complete Time: 23:09 [facility] 07/28 22:16 Order name: Hepatic Function; Complete Time: 23:09 [facility] 07/28 22:16 Order name: Lipase; Complete Time: 23:09 [facility] 07/28 23:49 Order name: Comprehensive Metabolic Panel [facility] 07/28 23:49 Order name: Comprehensive Metabolic Panel [facility] 07/28 23:49 Order name: Lactate [facility] 07/28 23:49 Order name: Lactate [facility] 07/28 23:49 Order name: Magnesium [facility] 07/28 20:57 Order name: Urine Dipstick-Ancillary (obtain specimen); Complete Time: 20:57 [facility] 07/28 22:16 Order name: IV Saline Lock; Complete Time: 22:31 [facility] 07/28 22:16 Order name: Labs collected and sent; Complete Time: 22:31 [facility] 07/28 22:16 Order name: CT Stone Protocol [facility] 07/28 23:49 Order name: Magnesium EDMS 07/28 23:50 Order name: Regular EDMS Administered Medications: 22:32 Drug: NS 0.9% (20 ml/kg) 20 ml/kg Route: IV; Rate: 1 bolus; Site: left forearm; rv 07/29 00:06 Follow up: IV Status: Completed infusion; IV Intake: 600ml 07/28 22:32 Drug: Meropenem 1 grams Route: IV; Rate: per protocol; Site: left forearm; rv 07/29 00:06 Follow up: IV Status: Completed infusion; IV Intake: 100ml rv Disposition: 07/28/19 22:40 Hospitalization ordered by Erik Russell for Inpatient Admission. Preliminary diagnosis are Vomiting, Urinary tract infection, site not specified, Acute tubulo-interstitial nephritis, Spina bifida. - Bed requested for Telemetry/MedSurg (Inpatient). - Status is Inpatient Admission. rv - Condition is Fair. - Problem is new. - Symptoms have improved. UTI on Admission? Yes Signatures: Dispatcher [employer] [facility] Clemencia Doran RN RN aj1 Shilpa Aly RN RN mw Anderson, Corey, MD MD cha Vicente, Ronaldo, RN RN rv Corrections: (The following items were deleted from the chart) 00:03 07/28 22:40 Hospitalization Ordered by Erik Russell MD for Inpatient Admission. jules Preliminary diagnosis is Vomiting; Urinary tract infection, site not specified; Acute tubulo-interstitial nephritis; Spina bifida. Bed requested for Telemetry/MedSurg (Inpatient). Status is Inpatient Admission. Condition is Fair. Problem is new. Symptoms have improved. UTI on Admission? Yes. [facility] 07/29 00:59 00:03 07/28/2019 22:40 Hospitalization Ordered by Erik Russell MD for Inpatient rv Admission. Preliminary diagnosis is Vomiting; Urinary tract infection, site not specified; Acute tubulo-interstitial nephritis; Spina bifida. Bed requested for Telemetry/MedSurg (Inpatient). Status is Inpatient Admission. Condition is Fair. Problem is new. Symptoms have improved. UTI on Admission? Yes. mw
--- NOTE | 2019-07-28 22:41 | ER ---
Nurse's Notes [facility] Name: Shari Estrella Age: 29 yrs Sex: Female : 1990 Arrival Date: 07/28/2019 Time: 20:27 Bed 28 Private MD: Diagnosis: Vomiting;Urinary tract infection, site not specified;Acute tubulo-interstitial nephritis;Spina bifida Presentation: 07/28 20:30 Presenting complaint: Patient states: She has been throwing up, her home health nurse aj1 said that her blood pressure was high and her heart rate was high, and that's usually what happens when she has a UTI. Transition of care: patient was not received from another setting of care. Onset of symptoms was July 28, 2019. Risk Assessment: Do you want to hurt yourself or someone else? Patient reports no desire to harm self or others. Initial Sepsis Screen: Does the patient meet any 2 criteria? HR > 90 bpm. No. Patient's initial sepsis screen is negative. Does the patient have a suspected source of infection? Yes: Dysuria/Frequency/Urgency/UTI. Care prior to arrival: None. 20:30 Method Of Arrival: Wheelchair aj1 20:30 Acuity: SAMAN 3 aj1 Triage Assessment: 20:34 General: Appears in no apparent distress. comfortable, Behavior is calm, cooperative, aj1 appropriate for age. Pain: Complains of pain in back Pain currently is 8 out of 10 on a pain scale. Neuro: Level of Consciousness is awake, alert, obeys commands. Cardiovascular: Patient's skin is warm and dry. Respiratory: Airway is patent Respiratory effort is even, unlabored, Respiratory pattern is regular, symmetrical. 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 - Social history:: Smoking status: Patient/guardian denies using tobacco. - Ebola Screening: : Patient denies travel to an Ebola-affected area in the 21 days before illness onset. - Family history:: not pertinent. Screenin:34 Abuse screen: Denies threats or abuse. Denies injuries from another. Nutritional rv screening: No deficits noted. Tuberculosis screening: No symptoms or risk factors identified. Fall Risk None identified. Assessment: 22:33 General: Appears in no apparent distress. Behavior is calm. Neuro: Level of rv Consciousness is awake, alert, obeys commands, Oriented to person, place, time, situation. Cardiovascular: Patient's skin is warm and dry. Respiratory: Airway is patent. : Reports burning with urination. Derm: Skin is intact. 22:46 Reassessment: patient sent to ct scan via stretcher. mg2 Vital Signs: 20:34 BP 131 / 101; Pulse 108; Resp 20; Temp 97.5; Pulse Ox 99% on R/A; Weight 29.48 kg (R); aj1 Height 4 ft. 0 in. (121.92 cm) (R); Pain 8/10; 07/29 00:48 BP 128 / 96; Pulse 97; Resp 18; Pulse Ox 100% on R/A; rv 07/28 20:34 Body Mass Index 19.83 (29.48 kg, 121.92 cm) aj1 ED Course: 07/28 20:27 Patient arrived in ED. ag3 20:32 Triage completed. aj1 20:34 Arm band placed on Patient placed in waiting room, Patient notified of wait time. aj1 21:13 Joel Ariza MD is Attending Physician. ira 21:19 Osbaldo Jones RN is Primary Nurse. rv 22:31 No provider procedures requiring assistance completed. Inserted saline lock: 22 gauge mg2 in left forearm, using aseptic technique. Blood collected. 22:34 Patient has correct armband on for positive identification. Bed in low position. Call rv light in reach. Side rails up X2. Adult w/ patient. Pulse ox on. NIBP on. 22:38 Erik Russell MD is Hospitalizing Provider. ira 23:02 CT Stone Protocol In Process Unspecified. EDMS 07/29 00:48 Patient admitted, IV remains in place. rv Administered Medications: 07/28 22:32 Drug: NS 0.9% (20 ml/kg) 20 ml/kg Route: IV; Rate: 1 bolus; Site: left forearm; rv 07/29 00:06 Follow up: IV Status: Completed infusion; IV Intake: 600ml rv 07/28 22:32 Drug: Meropenem 1 grams Route: IV; Rate: per protocol; Site: left forearm; rv 07/29 00:06 Follow up: IV Status: Completed infusion; IV Intake: 100ml rv Intake: 00:06 IV: 600ml; Total: 600ml. rv 00:06 IV: 100ml; Total: 700ml. rv Outcome: 07/28 22:40 Decision to Hospitalize by Provider. [facility] 07/29 00:47 Admitted to Med/surg accompanied by tech, via wheelchair, room 204, Report called to solo NULL RN Condition: good Instructed on the need for admit. 00:59 Patient left the ED. rv Signatures: Dispatcher [employer] EDClemencia Neil RN RN ajJoel Hernandze MD MD cha Gardose, Michele, RN RN mg2 Vicente, Ronaldo, RN RN rv Gomez, Alice ag3
[2019-07-28 22:51] LABS: Basophils % 0.7 % (0-1.3); Hematocrit 42.3 % (36.0-45.0); Lymphocytes % 27.6 % (15.3-44.8); MPV 8.9 fL (7.6-11.3); RBC Red Blood Cell Count 4.65 M/uL (3.86-4.86)
[2019-07-28 23:03] LABS: ALT/SGPT 23 U/L (12-78); AST/SGOT 18 U/L (15-37); Albumin 4.2 g/dL (3.4-5.0); Alkaline Phosphatase 97 U/L (45-117); BUN Blood Urea Nitrogen 4 mg/dL (7-18); Bicarbonate 26 mmol/L (21-32); Bilirubin Direct < 0.1 mg/dL (0-0.2); Bilirubin Total 0.2 mg/dL (0.2-1.0); Glucose Level 106 mg/dL (74-106); Lipase 64 U/L (73-393); Potassium 3.7 mmol/L (3.5-5.1); Protein, Total 8.2 g/dL (6.4-8.2); Sodium Level 138 mmol/L (136-145)
[2019-07-28] MEDS ORDERED: ONDANSETRON 4 MG/2 ML VIAL IV PRN (23:41)
[2019-07-28] MEDS ORDERED: ACETAMINOPHEN 500 MG TAB PO PRN (23:41)
[2019-07-28] MEDS: NA CHLORIDE 0.9% 1,000 ML IV SCH (23:45)
--- NOTE | 2019-07-28 23:57 | P.HP ---
Certification for Inpatient Patient admitted to: Inpatient With expected LOS: >2 Midnights Patient will require the following post-hospital care: None Practitioner: I am a practitioner with admitting privileges, knowledge of patient current condition, hospital course, and medical plan of care. Services: Services provided to patient in accordance with Admission requirements found in Title 42 Section 412.3 of the Code of Federal Regulations Patient History Date of Service: 07/28/19 Reason for admission: UTI History of Present Illness: 29-year-old female with past medical history of spina bifida, wheelchair-bound, with previous history of recurrent UTI came to ER with dysuria and foul- smelling urine which started 2 days back and has been progressively worsening and was brought to ER, denies any fever or chills. Patient was treated with 2 rounds of antibiotics with not much relief No chest pain or shortness of breath No nausea vomiting Patient was assessed the ER and was found to have UTI and was admitted for further management. Patient has a history of recurrent UTI in the past Allergies adhesive tape Allergy (Verified 05/31/17 21:32) Rash Latex, Natural Rubber Allergy (Verified 05/31/17 21:32) Rash Sulfa (Sulfonamide Antibiotics) Allergy (Verified 05/31/17 21:32) Hives/Rash sulfamethoxazole [From Bactrim] Allergy (Verified 05/31/17 21:32) Hives trimethoprim [From Bactrim] Allergy (Verified 05/31/17 21:32) Hives Adhesives Allergy (Uncoded 07/08/17 16:36) Unknown Home medications list reviewed: Yes Home Medications: Oxycodone HCl/Acetaminophen [Oxycodone-Acetaminophen 10-325] 1 each PO Q4H PRN 05/31/17 Acetic Acid 0.25% [Acetic Acid 0.25%*] 1,000 ml IRR PRN PRN #1 btl 06/05/17 Meropenem [Merrem*] 1,000 mg IV Q8HR #1 vial 06/05/17 Pantoprazole [Protonix Tab*] 40 mg PO BID #60 tab 06/05/17 atenoloL [Atenolol] 50 mg PO DAILY 07/13/17 Hans [Hans*] 1 pkt PO BID #60 powd.pack 07/18/17 Medihoney [Medihoney Woundcare Gel*] 1 appl TOP DAILY #1 tube 07/18/17 Pedi Multivit No.156/Iron Fum [Polyvitamin with Iron Tab Chew] 1 each PO DAILY # 30 tab.chew 07/18/17 Vancomycin [Vancocin*] 1 gm IV Q12H 42 Days vial 07/18/17 PIPER/TAZO/NS 3.375gm [Zosyn 3.375 gm/100 ml Ns Ivpb] 3.375 gm IV Q8H 7 Days bag 07/28/19 - Past Medical/Surgical History Diabetic: No Past Medical History: Reviewed- Non-Contributory -: Spina Bifida -: MRSA 2 years ago -: scoliosis -: HTN -: ulcers -: Stage III decubitus ulcer Past Surgical History: Reviewed- Non-Contributory -: Mulitible back surgeries -: right great toe amputated -: bowel surgery cecostomy -: superpubic stoma -: ABALONE PROCESSOR shunt - Family History Family History: Reviewed- Non-Contributory - Family History Mother -: Hypertension, Diabetes, Other (see notes) Notes: Lupus Father -: Hypertension Notes: Hyperlipidemia - Social History Smoking Status: Never smoker Alcohol use: No CD- Drugs: No Caffeine use: No Review of Systems 10-point ROS is otherwise unremarkable Physical Examination - Vital Signs Temperature: 97.6 F Blood Pressure: 112/76 Pulse: 78 Respirations: 18 - Physical Exam General: Alert, In no apparent distress, Oriented x3 HEENT: Atraumatic, Normocephalic Neck: Supple, 2+ carotid pulse no bruit Respiratory: Clear to auscultation bilaterally, Normal air movement Cardiovascular: No edema, Regular rate/rhythm Capillary refill: <2 Seconds Gastrointestinal: Soft and benign, W/out hepatosplenomegaly Musculoskeletal: No tenderness, Contractures, Scoliosis Integumentary: No rashes, No tenderness/swelling Neurological: Normal speech, Other (Wheelchair-bound), Abnormal gait Lymphatics: No axilla or inguinal lymphadenopathy Urinary: Other (No bladder distention) External genitalia: Deferred Rectal: Deferred - Studies Laboratory Data (last 24 hrs) 07/28/19 22:30: Creatinine 0.41 L 07/28/19 22:30: WBC 10.9, Hgb 14.1, Hct 42.3, Plt Count 349 07/28/19 22:30: Sodium 138, Potassium 3.7, BUN 4 L, Creatinine 0.41 L, Glucose 106, Total Bilirubin 0.2, AST 18, ALT 23, Alkaline Phosphatase 97, Lipase 64 L Assessment and Plan - Problems (Diagnosis) (1) UTI (urinary tract infection) Onset Date: 07/12/15 Current Visit: No Status: Acute Qualifiers: (2) Hypertension Onset Date: 06/01/17 Current Visit: No Status: Chronic Qualifiers: (3) Paraplegia Onset Date: 06/01/17 Current Visit: No Status: Chronic (4) Scoliosis Onset Date: 06/01/17 Current Visit: No Status: Chronic Qualifiers: (5) Spina bifida Onset Date: 06/01/17 Current Visit: No Status: Chronic Qualifiers: - Plan UTI failed outpatient therapy Hypertension History of spina bifida and paraplegia Wheelchair-bound Plan Monitor closely Hydration IV antibiotics Get cultures Change antibiotics as per the sensitivity Critical medications and titrate as needed GI/DVT prophylaxis - Advance Directives Does patient have a Living Will: No Does patient have a Durable POA for Healthcare: No Time Spent Managing Pts Care (In Minutes): 43
[2019-07-29] MEDS: NA CHLORIDE 0.9% 1,000 ML IV SCH ×4 (01:06→22:24)
[2019-07-29 01:15] VITALS: BMI 22.1
[2019-07-29] MEDS ORDERED: NA CHLORIDE 0.9% 100 ML ONE (01:26)
[2019-07-29] MEDS ORDERED: PIPERACIL/TAZO 3.375 GM VIAL IV ONE (01:26)
[2019-07-29] MEDS ORDERED: OXYCODONE HCL 5 MG TAB PO PRN (01:27)
[2019-07-29] MEDS: ACETAMINOPHEN 325 MG TABLET PO PRN ×5 (01:53→23:26)
[2019-07-29] MEDS: DIPHENHYDRAMINE 25 MG TAB/CAP PO PRN (02:09)
[2019-07-29 05:34] LABS: Absolute Lymphocytes (CBC) 2.6 K/uL (0.7-4.9); Basophils % 0.6 % (0-1.3); Hematocrit 35.3 % (36.0-45.0); Lymphocytes % 36.8 % (15.3-44.8); MPV 8.5 fL (7.6-11.3); RBC Red Blood Cell Count 3.86 M/uL (3.86-4.86)
[2019-07-29 05:44] LABS: ALT/SGPT 20 U/L (12-78); AST/SGOT 12 U/L (15-37); Albumin 3.2 g/dL (3.4-5.0); Alkaline Phosphatase 79 U/L (45-117); BUN Blood Urea Nitrogen 4 mg/dL (7-18); Bicarbonate 25 mmol/L (21-32); Bilirubin Total 0.2 mg/dL (0.2-1.0); Glucose Level 96 mg/dL (74-106); Phosphorus 3.4 mg/dL (2.5-4.9); Potassium 3.5 mmol/L (3.5-5.1); Protein, Total 6.3 g/dL (6.4-8.2); Sodium Level 142 mmol/L (136-145)
[2019-07-29] MEDS ORDERED: POTASSIUM CL SA 10 MEQ TAB PO ONE (09:00)
[2019-07-29] MEDS: ENOXAPARIN 30 MG/0.3 ML SQ SCH (09:01)
[2019-07-29] MEDS: PIPER/TAZO/NS 3.375gm 3.375 GM/100 ML BAG IVPB SCH ×2 (09:01→16:12)
[2019-07-29] MEDS: OXYCODONE HCL 5 MG TAB PO PRN ×4 (10:36→23:26)
--- NOTE | 2019-07-29 11:55 | RAD REPORT ---
EXAM DESCRIPTION: CT - Stone Protocol - 07/28/2019 11:25 pm CLINICAL HISTORY: Vomiting. Flank pain. Assess for obstructive uropathy. TECHNIQUE: CT scan of the abdomen and pelvis was performed without intravenous contrast. Stone pinky col was utilized. 3.0 mm axial images were obtained along with coronal and sagittal reformatted image s. DOSE OPTIMIZATION: This facility uses dose optimization techniques as appropriate to perform exams, including at least one of the following techniques: 1. Automated exposure control. 2. Adjustment of the mA and/or kV according to patient size (this includes techniques or standardized protocols for targeted exams where dose is matched to the indication/reason for exam, i.e. extremiti es or head). 3. Use of iterative reconstructive technique. COMPARISON: None. FINDINGS: Lung Bases: Normal. Liver: Normal. Spleen: Normal. Pancreas: Normal. Gallbladder: There is a large calcified stone in the gallbladder measuring 2.0 x 0.8 cm. Adrenal Glands: Normal. Right Kidney: Normal. Left Kidney: There is a nonobstructing medullary stone in the lower pole measuring 0.4 x 0.4 cm. Right Ureter: Normal. Left Ureter: Normal. Urinary Bladder: Normal. Retroperitoneal Structures: Normal. Bowel Survey: There is a large amount of residual stool identified throughout the colon. The distal i leum is unremarkable. The appendix is unremarkable appearance and appears to extend through the rectus fascia into the subc utaneous fat along the right aspect of the umbilicus. Uterus and Adnexa: Normal. Peritoneal Cavity: Normal. A right-sided ventriculoperitoneal shunt is demonstrated. Mesenteric Structures: Normal. Abdominal Wall: Small right periumbilical hernia which appears to contain the distal tip in the appen maty is described above.. Bony Structures: There is severe levoscoliosis of the thoracolumbar spine. IMPRESSION: 1. Large amount residual stool throughout the colon. 2. The appendix appears to extend through the rectus fascia into the subcutaneous fat right of the um bilicus. No evidence of appendicitis. 3. Severe levoscoliosis of the thoracolumbar spine. 4. Large calcified gallstone. 5. Small nonobstructing right renal stone. 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 The interpreting radiologist is f ully responsible for the content of the report.
[2019-07-29] MEDS ORDERED: [UNRECOGNIZED DRUG - REMARK] PO PRN (14:09)
[2019-07-29] MEDS ORDERED: OXYCODONE HCL PO PRN (14:09)
[2019-07-29] MEDS ORDERED: ACETAMINOPHEN PO PRN (14:09)
--- NOTE | 2019-07-29 15:25 | PN ---
Date of Progress Note: 07/29/2019 Subjective: Patient is seen and examined, chart reviewed and case discussed with RN. [employer]ine[employer] still down, servers not available. Unable to review chart on the computer at this time. Patient states she is feeling better. I spoke with Wound Healing nurse. Medications: List reviewed. Physical Examination: Vital Signs: Temperature 98.5, heart rate 93, blood pressure 116/64, respirations 18, O2 99% on room air. General: Awake, alert, oriented x3. CV: S1, S2. Regular rate and rhythm. Respiratory: Moving air well bilaterally. No wheezing or stridor. Gastrointestinal: Abdomen is soft, nontender, nondistended. Positive bowel sounds. Extremities: No clubbing or cyanosis. Patient has pedal edema. Neuro: Patient has spina bifida weakness in her lower extremities. Skin: Patient has sacral decubitus ulcer. Laboratory Data: Labs not available at this time due to prospecting observer error, pending faxed report from laboratory. Assessment: 29-year-old female with: 1. Acute cystitis without hematuria. Patient will be continued on IV antibiotics. Patient has history of multiple urinary tract infection in the past. We will likely have multidrug resistant bacteria. We will await urinary cultures. 2. Sacral decubitus ulcer. We will have [facility] evaluate the patient. Continue with offloading and air mattress. 3. Spina bifida with multiple comorbidities and complications. 4. Paraplegia 5. Deep vein thrombosis prophylaxis addressed. Plan: Likely discharge in the next 24 to 48 hours depending on clinical improvement and culture results. ADDENDUM: Labs reviewed. Will Likely Dc in a.m. once culture results are back SA/MODL Voice ID: [id number] Report ID: [id number] WEN
[2019-07-29] MEDS ORDERED: LOPERAMIDE HCL 2 MG CAPSULE PO PRN (23:52)
[2019-07-30] MEDS: LACTOBACILLUS/ACIDOPHILUS TAB PO SCH ×2 (00:19→08:53)
[2019-07-30] MEDS: PIPER/TAZO/NS 3.375gm 3.375 GM/100 ML BAG IVPB SCH ×2 (00:19→08:51)
[2019-07-30] MEDS: DIPHENHYDRAMINE 25 MG TAB/CAP PO PRN (00:19)
[2019-07-30 06:54] LABS: BUN Blood Urea Nitrogen 2 mg/dL (7-18); Bicarbonate 24 mmol/L (21-32); Glucose Level 89 mg/dL (74-106); Potassium 3.7 mmol/L (3.5-5.1); Sodium Level 144 mmol/L (136-145)
[2019-07-30] MEDS ORDERED: DIPHENHYDRAMINE 25 MG TAB/CAP PO PRN (08:19)
[2019-07-30] MEDS: ENOXAPARIN 30 MG/0.3 ML SQ SCH (08:51)
[2019-07-30 08:53] VITALS: BP 150/78
[2019-07-30 08:56] VITALS: TEMP 97.9
[2019-07-30] MEDS ORDERED: HOME MED 1 EA UNK (Omeprazole [Omeprazole] 20 MG) PO SCH (09:00)
[2019-07-30] MEDS ORDERED: MEDIHONEY 44 ML TOPICAL TUBE TOP SCH ×2 (09:00)
[2019-07-30] MEDS ORDERED: PANTOPRAZOLE 40MG TABLET PO SCH ×2 (09:00)
[2019-07-30] MEDS ORDERED: LABETALOL HCL 100 MG TAB PO SCH (09:00)
[2019-07-30] MEDS: OXYCODONE HCL 5 MG TAB PO PRN (10:43)
[2019-07-30] MEDS: ACETAMINOPHEN 325 MG TABLET PO PRN (10:47)
[2019-07-30 11:47] VITALS: O2SAT 99
--- NOTE | 2019-07-30 15:21 | DS ---
Date of Discharge: 07/30/2019 Admitting Diagnoses: 1. Acute cystitis without hematuria. 2. Essential hypertension. 3. Paraplegia. 4. Scoliosis. 5. Spina bifida. Discharge Diagnoses: 1. Acute cystitis without hematuria secondary to Escherichia coli. 2. Sacral decubitus ulcer, present on admission. Continue with topical wound care. 3. Spina bifida. 4. Paraplegia. 5. Essential hypertension, stable. 6. Scoliosis, stable. Hospital Course: Patient is a 29-year-old female with past medical history of spina bifida, wheelchair bound, history of recurrent UTIs, comes in with recurrent UTI progressively worsening symptoms, had been treated with 2 rounds of antibiotics without much relief. Patient's white blood cell count was normal. There was no signs of sepsis. Lactate was normal. Urine cultures were obtained as UA was positive, grew out E coli, sensitive to fluoroquinolones. Patient did feel better with IV antibiotics and IV fluids. Patient was then cleared for discharge and was sent home in a stable condition. Patient was seen by [facility] for her sacral decubitus ulcer, which was present on admission. She has been following up with the [facility], has home health and helps her with dressing changes. Patient was discharged to home with home health. Activity: Wheelchair bound, fall precautions. Medications: As per medication reconciliation list. Finish off course of Macrobid. [facility]. Followup: Follow up with PCP in 2 to 3 days. Follow up at the [facility] in one week. Return to ER for worsening condition. Diet: Regular. Physical Examination: General: Awake, alert, oriented x3. CV: S1, S2. Respiratory: Moving air well bilaterally. Abdomen: Soft, nontender, nondistended. Positive bowel sounds. Extremities: No clubbing or cyanosis. Patient has edema. Neurologic: Paraplegic. Total time spent discharging patient was 31 min /TENZIN Voice ID: [id number] Report ID: [id number] WEN
== END 2019-07-30 11:49 | disposition home or self-care (01) | DRG 690 ==
LOC: ER 20:24 → ERHOLD 23:56 → 2ND 07-29 00:48
PROVIDERS: ADMIT Family Medicine; ATTEND Family Medicine
DX: N30.00 Acute cystitis without hematuria (principal); G82.20 Paraplegia, unspecified; B96.20 Unspecified Escherichia coli [E. coli] as the cause of diseases classified elsewhere; I10 Essential (primary) hypertension; L89.151 Pressure ulcer of sacral region, stage 1; M41.9 Scoliosis, unspecified; Q05.9 Spina bifida, unspecified; Z99.3 Dependence on wheelchair
CPT/HCPCS: 36415; 74176; 76377; 80048; 80053; 80076; 81003; 81015; 81025; 83605; 83690; 83735; 84100; 85025; 87077; 87086; 87088; 87186; 96365; 96366; 99251; 99285; J1650; J2185; J2543; J7030

== ENCOUNTER 2019-08-06 22:11 | Emergency (ER) | payer OTHER ==
--- OUTSIDE RECORDS SUMMARY | 2019-08-06 22:12 | XMS REPORT ---
:1990 [facility] [address] [place]av[place] [address] [place] [id number] Care Team Providers Name Role Phone Unavailable Unavailable Unavailable Problems This patient has no known problems. Allergies, Adverse Reactions, Alerts This patient has no known allergies or adverse reactions. Medications This patient has no known medications.
[2019-08-06 23:03] LABS: Absolute Lymphocytes (CBC) 2.7 K/uL (0.7-4.9); Basophils % 0.8 % (0-1.3); Hematocrit 39.5 % (36.0-45.0); Lymphocytes % 26.7 % (15.3-44.8); MPV 8.5 fL (7.6-11.3); RBC Red Blood Cell Count 4.35 M/uL (3.86-4.86)
[2019-08-06] MEDS ORDERED: NA CHLORIDE 0.9% 1,000 ML ONE (23:05)
[2019-08-06 23:09] LABS: Urine Blood TRACE (NEG); Urine Glucose NEGATIVE (NEG); Urine Protein NEGATIVE (NEG)
[2019-08-06 23:09] LABS: Urine Bacteria >50 /HPF (<20); Urine Culture Reflex Order NOT NEEDED; Urine RBC <5 /HPF (NONE SEEN)
[2019-08-06 23:12] LABS: BUN Blood Urea Nitrogen 10 mg/dL (7-18); Bicarbonate 26 mmol/L (21-32); Glucose Level 117 mg/dL (74-106); Potassium 3.5 mmol/L (3.5-5.1); Sodium Level 142 mmol/L (136-145)
[2019-08-06] MEDS ORDERED: CEFTRIAXONE/SWI 1gm 1 GM/10 ML SYR ONE (23:36)
[2019-08-06] MEDS ORDERED: PROMETHAZINE INJ 25 MG/ML AMP ONE (23:36)
[2019-08-06] MEDS ORDERED: MORPHINE 2 MG/ML SYR ONE (23:36)
--- NOTE | 2019-08-07 00:19 | ER ---
Nurse's Notes [facility] Name: Shari Estrella Age: 29 yrs Sex: Female : 1990 Arrival Date: 08/06/2019 Time: 22:13 Bed 27 Private MD: Diagnosis: Urinary tract infection, site not specified Presentation: 08/06 22:28 Presenting complaint: Patient states: Reports she has been having fever, reports she ea was admitted a week ago for a severe UTI. Pt reports she self caths at home. Transition of care: patient was not received from another setting of care. Onset of symptoms was August 06, 2019. Risk Assessment: Do you want to hurt yourself or someone else? Patient reports no desire to harm self or others. Initial Sepsis Screen: Does the patient meet any 2 criteria? HR > 90 bpm. Does the patient have a suspected source of infection? Yes: Dysuria/Frequency/Urgency/UTI. Care prior to arrival: Medication(s) given: Reports she completed antibiotic she was discharged with. 22:28 Method Of Arrival: Wheelchair ea 22:28 Acuity: SAMAN 3 ea HEEL PACKER: 22:31 LMP 07/2019 ea Historical: - Allergies: 22:33 Adhesives; ea 22:33 Bactrim; ea 22:33 Latex, Natural Rubber; ea 22:33 Sulfa (Sulfonamide Antibiotics); ea - Home Meds: 22:33 Oxycodone HCl Oral [Active]; labetalol Oral [Active]; ea - PMHx: 22:33 spina-bifida; Hypertension; ea - Immunization history:: Adult Immunizations up to date. - Social history:: Smoking status: Patient/guardian denies using tobacco. - Ebola Screening: : No symptoms or risks identified at this time. Screenin:32 Abuse screen: Denies threats or abuse. Nutritional screening: No deficits noted. ea Tuberculosis screening: No symptoms or risk factors identified. Fall Risk None identified. Assessment: 22:59 General: Appears in no apparent distress. comfortable, Behavior is calm, cooperative. rv Pain: Complains of pain in abdomen. Neuro: Level of Consciousness is awake, alert, obeys commands, Oriented to person, place, time, situation. Cardiovascular: Patient's skin is warm and dry. Respiratory: Airway is patent. GI: Abdomen is flat. : Reports burning with urination. Derm: Skin is intact. 23:46 Reassessment: Patient appears in no apparent distress at this time. Patient and/or rv family updated on plan of care and expected duration. Pain level reassessed. Patient is alert, oriented x 3, equal unlabored respirations, skin warm/dry/pink. Vital Signs: 22:31 BP 149 / 104; Pulse 127; Resp 19; Temp 99; Pulse Ox 98% on R/A; Weight 31.75 kg; Height ea 4 ft. (121.92 cm); 23:47 BP 132 / 88; Pulse 117; Resp 18; Temp 98.7(O); Pulse Ox 98% ; rv 08/07 00:54 BP 136 / 84; Pulse 114; Resp 18; Pulse Ox 98% on R/A; rv 08/06 22:31 Body Mass Index 21.36 (31.75 kg, 121.92 cm) ea ED Course: 08/06 22:13 Patient arrived in ED. es 22:23 Osbaldo Jones, CHATA is Primary Nurse. rv 22:30 Inserted saline lock: 22 gauge in left forearm, using aseptic technique. Blood rv collected. 22:30 First set of blood cultures drawn by me. rv 22:31 Triage completed. ea 22:31 Vanessa Rosen F[facility]-C [facility]. snw 22:31 Anirudh Brock MD is Attending Physician. snw 22:54 Flu Sent. lt1 22:54 Urine Culture Sent. lt1 22:54 Urine Microscopic Only Sent. lt1 22:56 Second set of blood cultures drawn by me. rv 23:00 Arm band placed on right wrist. rv 23:00 Patient has correct armband on for positive identification. Pulse ox on. NIBP on. rv 08/07 00:56 No provider procedures requiring assistance completed. IV discontinued, intact, rv bleeding controlled, No redness/swelling at site. Pressure dressing applied. Administered Medications: 08/06 22:58 Drug: NS 0.9% (20 ml/kg) 20 ml/kg Route: IV; Rate: 1 bolus; Site: left forearm; rv 08/07 00:55 Follow up: IV Status: Completed infusion; IV Intake: 635ml rv 08/06 23:45 Drug: morphine 2 mg Route: IVP; Site: left forearm; rv 08/07 00:55 Follow up: Response: No adverse reaction; Marked relief of symptoms; Pain is decreased; rv RASS: Alert and Calm (0) 08/06 23:45 Drug: Phenergan 6.25 mg Route: IVP; Site: left forearm; rv 08/07 00:55 Follow up: Response: No adverse reaction rv 08/06 23:45 Drug: Rocephin 1 grams Route: IV; Rate: calculated rate; Site: left forearm; rv 23:46 Follow up: IV Status: Completed infusion rv Intake: 08/07 00:55 IV: 635ml; Total: 635ml. rv Outcome: 00:17 Discharge ordered by MD. snw 00:56 Discharged to home via wheelchair. rv 00:56 Condition: good 00:56 Discharge instructions given to patient, Instructed on discharge instructions, follow up and referral plans. medication usage, Demonstrated understanding of instructions, follow-up care, medications, Prescriptions given X 3. 00:56 Patient left the ED. rv Addendum: 08/10/2019 08:08 Addendum: Culture Results: Positive urine culture. Positive blood culture. No further s s action required. Bacteria sensitive to prescribed antibiotic. 08/11/2019 11:22 Addendum: Culture Results: Prescription called-in to pharmacy of choice. to [facility] a pharmacy in [place], [place], called in Augmentin 875 mg BID x [address] Ariza. Spoke to pt's mother and instructed to continue Doxycycline per Dr. Ariza. Signatures: Vanessa Rosen, SAFETY LAMP KEEPER-C SAFETY LAMP KEEPER-Csnw Nancy Soares Audri RN RN aa5 Laury Louis, CHATA BRIZUELA ss Shell Pacheco, Osbaldo Reid RN, ea, RN CHATA Erica, [facility]
--- NOTE | 2019-08-07 00:20 | EDPHYS ---
Physician Documentation [facility] Name: Shari Estrella Age: 29 yrs Sex: Female : 1990 Arrival Date: 08/06/2019 Time: 22:13 Bed 27 Private MD: ED Physician Anirudh Brock HPI: 08/07 00:21 This 29 yrs old Female presents to ER via Wheelchair with complaints of snw Fever, Vomiting. 08/06 23:56 The patient reports fever, that was measured at 100 degrees Fahrenheit. Onset: The snw symptoms/episode began/occurred suddenly, and became persistent. Associated signs and symptoms: Pertinent positives: vomiting. Severity of symptoms: At their worst the symptoms were moderate. The patient has experienced similar episodes in the past, chronically. The patient has been recently seen by a physician: The patient has been recently been admitted at [facility], was discharged from the hospital July 30, 2019. 08/07 00:20 Cultures from recent admission reviewed. Sensitive to Augmentin, will give post snw Rocephin in ED. New urine culture sent. Wound care to continue at wound healing center.. 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 - Social history:: Smoking status: Patient/guardian denies using tobacco. - Ebola Screening: : No symptoms or risks identified at this time. ROS: 23:55 Constitutional: Negative for chills and weight loss, + low grade fever Eyes: Negative snw for injury, pain, redness, and discharge, ENT: Negative for injury, pain, and discharge, Neck: Negative for injury, pain, and swelling, Cardiovascular: Negative for chest pain, palpitations, and edema, Respiratory: Negative for shortness of breath, cough, wheezing, and pleuritic chest pain, Back: Negative for injury and pain, : Negative for injury, bleeding, discharge, and swelling. 23:55 Abdomen/GI: Positive for nausea and vomiting. 23:55 MS/extremity: Negative for acute changes. 23:55 Skin: Negative for acute changes. 23:55 Neuro: Negative for acute changes. Exam: 23:52 Head/Face: Normocephalic, atraumatic. Eyes: Pupils equal round and reactive to light, snw extra-ocular motions intact. Lids and lashes normal. Conjunctiva and sclera are non-icteric and not injected. Cornea within normal limits. Periorbital areas with no swelling, redness, or edema. ENT: Nares patent. No nasal discharge, no septal abnormalities noted. Tympanic membranes are normal and external auditory canals are clear. Oropharynx with no redness, swelling, or masses, exudates, or evidence of obstruction, uvula midline. Mucous membranes moist. Neck: Trachea midline, no thyromegaly or masses palpated, and no cervical lymphadenopathy. Supple, full range of motion without nuchal rigidity, or vertebral point tenderness. No Meningismus. Chest/axilla: Normal chest wall appearance and motion. Nontender with no deformity. No lesions are appreciated. 23:52 Respiratory: Lungs have equal breath sounds bilaterally, clear to auscultation and percussion. No rales, rhonchi or wheezes noted. No increased work of breathing, no retractions or nasal flaring. Abdomen/GI: Soft, non-tender, with normal bowel sounds. No distension or tympany. No guarding or rebound. No evidence of tenderness throughout. Back: No spinal tenderness. No costovertebral tenderness. Full range of motion. 23:52 Constitutional: The patient appears alert, awake, quadriplegic 23:52 Cardiovascular: Rate: tachycardic, Rhythm: regular, Heart sounds: normal. 23:52 Skin: Appearance: normal except for affected area, known decubitus ulcer, treatment per wound healing center. 23:52 Neuro: Orientation: appropriate for stated age, Mentation: is normal, Memory: is normal, quadriplegic. Vital Signs: 22:31 BP 149 / 104; Pulse 127; Resp 19; Temp 99; Pulse Ox 98% on R/A; Weight 31.75 kg; Height ea 4 ft. (121.92 cm); 23:47 BP 132 / 88; Pulse 117; Resp 18; Temp 98.7(O); Pulse Ox 98% ; rv 08/07 00:54 BP 136 / 84; Pulse 114; Resp 18; Pulse Ox 98% on R/A; rv 08/06 22:31 Body Mass Index 21.36 (31.75 kg, 121.92 cm) ea MDM: 08/06 22:45 Patient medically screened. snw 08/07 00:19 Data reviewed: vital signs, nurses notes. Data reviewed: old medical records, lab test snw result(s). Data interpreted: Pulse oximetry: on room air is 98 %. Interpretation: normal. Counseling: I had a detailed discussion with the patient and/or guardian regarding: the historical points, exam findings, and any diagnostic results supporting the discharge/admit diagnosis, lab results, the need for outpatient follow up, to return to the emergency department if symptoms worsen or persist or if there are any questions or concerns that arise at home. Response to treatment: the patient's symptoms have mildly improved after treatment. Special discussion: I have referred the patient to see his PCP for further evaluation of high blood pressure. I discussed in detail with the patient the higher chance of wound infection based on his presenting history. Based on the history and exam findings, there is no indication for further emergent testing or inpatient evaluation. I discussed with the patient/guardian the need to see the primary care provider for further evaluation of the symptoms. I discussed with the patient/guardian the need to see the urologist for further evaluation of the symptoms. 00:46 ED course: Mother of pt agitated with plan of care, shown cultures results and snw sensitivities. Mom states pt has been on Augmentin 5 times and it never works. Offered Doxycycline. Encouraged to f/u urology. Unable to follow up until September. Mom unhappy with explanation of following cultures to guide abx choice. No reason at this time for admission. Pt family states pt goes septic quickly. I agree pt needs abx but is no septic at this time and does not require hospitalization. 08/06 22:34 Order name: Flu; Complete Time: 00:14 snw 08/06 22:34 Order name: Urine Culture snw 08/06 22:34 Order name: Urine Microscopic Only; Complete Time: 23:15 snw 08/06 22:36 Order name: Basic Metabolic Panel; Complete Time: 23:48 snw 08/06 22:36 Order name: CBC with Diff; Complete Time: 23:06 w 08/06 22:36 Order name: [facility] 08/06 22:34 Order name: Urine Test (obtain specimen); Complete Time: 22:54 w 08/06 22:34 Order name: Urine Dipstick-Ancillary (obtain specimen); Complete Time: 22:54 w 08/06 22:51 Order name: Urine Dipstick--Ancillary (enter results); Complete Time: 23:15 [facility] 08/06 22:51 Order name: Urine --Ancillary (enter results); Complete Time: 23:15 [facility] 08/06 22:36 Order name: Labs collected and sent; Complete Time: 22:59 snw Administered Medications: 08/06 22:58 Drug: NS 0.9% (20 ml/kg) 20 ml/kg Route: IV; Rate: 1 bolus; Site: left forearm; rv 08/07 00:55 Follow up: IV Status: Completed infusion; IV Intake: 635ml rv 08/06 23:45 Drug: morphine 2 mg Route: IVP; Site: left forearm; rv 08/07 00:55 Follow up: Response: No adverse reaction; Marked relief of symptoms; Pain is decreased; rv RASS: Alert and Calm (0) 08/06 23:45 Drug: Phenergan 6.25 mg Route: IVP; Site: left forearm; rv 08/07 00:55 Follow up: Response: No adverse reaction rv 08/06 23:45 Drug: Rocephin 1 grams Route: IV; Rate: calculated rate; Site: left forearm; rv 23:46 Follow up: IV Status: Completed infusion rv Disposition: 08/07 01:47 Co-signature as Attending Physician, Anirudh Brock MD. pkl Disposition: 08/07/19 00:17 Discharged to Home. Impression: Urinary tract infection, site not specified. - Condition is Stable. - Discharge Instructions: Urinary Tract Infection, Adult, Rehydration, Adult. - Prescriptions for Zofran 4 mg Oral Tablet - take 1 tablet by ORAL route every 12 hours As needed; 20 tablet. promethazine 25 mg Oral Tablet - take 1 tablet by ORAL route every 6 hours As needed; 20 tablet. Doxycycline Hyclate 100 mg Oral Tablet - take 1 tablet by ORAL route every 12 hours; 20 tablet. - Medication Reconciliation Form, Thank You Letter, Antibiotic Education, Prescription Opioid Use form. - Follow up: Emergency Department; When: As needed; Reason: Fever > 102 F. Follow up: Private Physician; When: 2 - 3 days; Reason: Recheck today's complaints, Continuance of care, Re-evaluation by your physician. Signatures: Dispatcher [employer] EDMS Anirudh Brock MD MD pkl Therrien, Shelly, TEE-C POWDER COATER-Csnw Shell Pacheco, RN RN Osbaldo Bills, RN RN rv Corrections: (The following items were deleted from the chart) 00:56 00:17 08/07/2019 00:17 Discharged to Home. Impression: Urinary tract infection, site rv not specified. Condition is Stable. Forms are Medication Reconciliation Form, Thank You Letter, Antibiotic Education, Prescription Opioid Use. Follow up: Emergency Department; When: As needed; Reason: Fever > 102 F. Follow up: Private Physician; When: 2 - 3 days; Reason: Recheck today's complaints, Continuance of care, Re-evaluation by your physician. snw
[2019-08-07 01:40] VITALS: O2SAT 98
[2019-08-07 01:42] VITALS: TEMP 98.7
[2019-08-07 01:43] VITALS: BP 136/84
== END 2019-08-07 00:56 | disposition home or self-care (01) ==
LOC: ER 22:11
DX: N39.0 Urinary tract infection, site not specified (principal); I10 Essential (primary) hypertension; Z88.1 Allergy status to other antibiotic agents; Z88.2 Allergy status to sulfonamides; Z91.040 Latex allergy status; Z91.048 Other nonmedicinal substance allergy status
CPT/HCPCS: 96361; 87040 ×2; 87088; 85025; 87086; 80048; 36415; 87205 ×2; 81025; 87077 ×2; 87186 ×2; 87804 ×2; 96375; 96374; 99284; J2550; J2270; J0696; J7030; 81003; 81015

== ENCOUNTER 2019-08-17 12:00 | Inpatient (IN) | payer OTHER ==
--- OUTSIDE RECORDS SUMMARY | 2019-08-17 12:02 | XMS REPORT ---
:1990 [facility] Address [address] [place] [address] [address] [place] [address] Care Team Providers Name Role Phone Unavailable Unavailable Unavailable Problems This patient has no known problems. Allergies, Adverse Reactions, Alerts This patient has no known allergies or adverse reactions. Medications This patient has no known medications.
[2019-08-17 13:11] LABS: Urine Blood NEGATIVE (NEG); Urine Glucose NEGATIVE (NEG); Urine Protein 1+ (NEG); Urine Specific Gravity >1.030 (1.005-1.030); Urine pH 6.5 (5.0-7.0)
[2019-08-17 13:24] LABS: Urine Amorphous Sediment 2+ /HPF (NONE SEEN); Urine Bacteria <20 /HPF (<20); Urine Culture Reflex Order NOT NEEDED; Urine Mucus HEAVY /HPF (NONE SEEN); Urine RBC <5 /HPF (NONE SEEN)
[2019-08-17 13:37] LABS: Basophils % 0.7 % (0-1.3); Hematocrit 42.5 % (36.0-45.0); RBC Red Blood Cell Count 4.64 M/uL (3.86-4.86)
[2019-08-17 13:56] LABS: BUN Blood Urea Nitrogen 7 mg/dL (7-18); Bicarbonate 21 mmol/L (21-32); Glucose Level 108 mg/dL (74-106); Potassium 3.8 mmol/L (3.5-5.1); Sodium Level 141 mmol/L (136-145)
--- NOTE | 2019-08-17 15:01 | ER ---
Nurse's Notes [facility] Name: Shari Estrella Age: 29 yrs Sex: Female : 1990 Arrival Date: 08/17/2019 Time: 12:02 Bed 6 Private MD: Diagnosis: Wound infection;Bacteremia;Vomiting Presentation: 08/17 12:41 Presenting complaint: Patient states: Fever, nausea and vomiting. Patient states that aj1 she has had a UTI for the past 3 to 4 months, and it has not gone away completely. Transition of care: patient was not received from another setting of care. Onset of symptoms was 2019. Risk Assessment: Do you want to hurt yourself or someone else? Patient reports no desire to harm self or others. Initial Sepsis Screen: Does the patient meet any 2 criteria? HR > 90 bpm. No. Patient's initial sepsis screen is negative. Does the patient have a suspected source of infection? Yes: Dysuria/Frequency/Urgency/UTI. Care prior to arrival: None. 12:41 Method Of Arrival: EMS: [facility] aj1 12:41 Acuity: SAMAN 3 aj1 Triage Assessment: 12:42 General: Appears in no apparent distress. uncomfortable, Behavior is calm, cooperative, aj1 appropriate for age. Pain: Pain currently is 3 out of 10 on a pain scale. Neuro: Level of Consciousness is awake, alert, obeys commands. Cardiovascular: Patient's skin is warm and dry. Respiratory: Airway is patent Respiratory effort is even, unlabored, Respiratory pattern is regular, symmetrical. GI: Reports nausea, vomiting. 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 - Social history:: Smoking status: Patient/guardian denies using tobacco. - Ebola Screening: : Patient denies travel to an Ebola-affected area in the 21 days before illness onset. - Family history:: not pertinent. - Hospitalizations: : No recent hospitalization is reported. Screenin:18 Abuse screen: Denies threats or abuse. Denies injuries from another. Nutritional sv screening: No deficits noted. Tuberculosis screening: No symptoms or risk factors identified. Fall Risk No fall in past 12 months (0 pts). No secondary diagnosis (0 pts). No IV (0 pts). Ambulatory Aid- None/Bed Rest/Nurse Assist (0 pts). Gait- Normal/Bed Rest/Wheelchair (0 pts) Mental Status- Oriented to own ability (0 pts). Total Aburto Fall Scale indicates No Risk (0-24 pts). Assessment: 15:00 General: Appears in no apparent distress. uncomfortable, Behavior is calm, cooperative, sv appropriate for age. General: Reports fever. Pain: Denies pain. Neuro: Level of Consciousness is awake, alert, obeys commands, Oriented to person, place, time, situation. Respiratory: Airway is patent Respiratory effort is even, unlabored, Respiratory pattern is regular, symmetrical. GI: Reports nausea, vomiting. GI: Abdomen is flat. Derm: Skin is pink, warm \T\ dry. Derm: Decubitus located on left left buttock crease is unstageable. has macerated edges is draining small amount yellow in color. 16:00 Reassessment: Patient appears in no apparent distress at this time. No changes from sv previously documented assessment. Patient and/or family updated on plan of care and expected duration. Pain level reassessed. Patient is alert, oriented x 3, equal unlabored respirations, skin warm/dry/pink. c/o pain, informed Dr Jain, medication order received. Vital Signs: 12:42 BP 113 / 81; Pulse 93; Resp 18; Temp 99.1; Pulse Ox 98% on R/A; Weight 33.57 kg (R); aj1 Height 4 ft. 0 in. (121.92 cm) (R); 14:21 BP 132 / 98; Pulse 93; Resp 16; Pulse Ox 100% ; sv 15:30 Pulse 88; Resp 16; Pulse Ox 100% ; sv 16:20 BP 128 / 77; Pulse 90; Resp 16; Pulse Ox 99% ; sv 12:42 Body Mass Index 22.58 (33.57 kg, 121.92 cm) aj1 ED Course: 12:02 Patient arrived in ED. as 12:42 Triage completed. aj1 12:42 Arm band placed on Patient placed in an exam room. aj1 12:49 Jose Jain MD is Attending Physician. rn 14:00 Patient has correct armband on for positive identification. Bed in low position. Call sv light in reach. Adult w/ patient. 14:17 Mckenzie Miner, RN is Primary Nurse. sv 14:17 Urine --Ancillary (enter results) Sent. sv 14:17 Urine Dipstick--Ancillary (enter results) Sent. sv 15:00 Bobo Ramos MD is Hospitalizing Provider. rn 15:15 Missed attempt(s): 22 gauge in right forearm. Bleeding controlled, band aid applied, sv catheter tip intact. 15:20 Missed attempt(s): 24 gauge in right wrist. Bleeding controlled, band aid applied, sv catheter tip intact. 15:30 Inserted saline lock: 22 gauge in left antecubital area, using aseptic technique. Blood ss collected. 16:00 Wound culture swab sent to lab. sv 16:37 No provider procedures requiring assistance completed. Patient admitted, IV remains in sv place. intact. Administered Medications: 15:39 CANCELLED (Pt allergic to): vancoMYCIN 1 grams IVPB once over 2 hrs sv 16:05 Drug: [place] 10 mg-325 mg 1 tabs Route: PO; sv 16:37 Follow up: Response: No adverse reaction; RASS: Alert and Calm (0) sv 16:06 Drug: Cefepime 1 grams Route: IVPB; Rate: 200 ml/hr; Infused Over: 30 mins; Site: left sv antecubital; 16:37 Follow up: Response: No adverse reaction; IV Status: Completed infusion; IV Intake: sv 100ml Intake: 16:37 IV: 100ml; Total: 100ml. sv Outcome: 15:00 Decision to Hospitalize by Provider. rn 16:25 Admitted to Med/surg accompanied by tech, room 424, with chart, Report called to Mag BRIZUELA 16:25 Condition: stable 16:25 Instructed on the need for admit. 16:37 Patient left the ED. sv Signatures: Clemencia Doran RN RN aj Mckenzie Minre RN RN Earl Fagan RN RN sg Martinez, Amelia as Jose Jain MD MD rn Laury Louis, CHATA RN ss
--- NOTE | 2019-08-17 15:01 | EDPHYS ---
Physician Documentation [facility] Name: Shari Estrella Age: 29 yrs Sex: Female : 1990 Arrival Date: 08/17/2019 Time: 12:02 Bed 6 Private MD: ED Physician Jose Jain HPI: 08/17 14:26 This 29 yrs old Female presents to ER via EMS with complaints of rn Nausea/Vomiting/chills. 14:26 The patient presents to the emergency department with nausea, vomiting. Onset: The rn symptoms/episode began/occurred 1 week(s) ago. The symptoms are aggravated by nothing. The symptoms are alleviated by nothing. Severity of symptoms: At their worst the symptoms were mild in the emergency department the symptoms are unchanged. The patient has experienced similar episodes in the past. Reports feels like still has UTI, given abx, given more abx a few days later by her own doctor, returns because feels fever and chills, assoc with nausea/vomiting. No diarrhea. She is concerned that infection is worsening.. 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 - Social history:: Smoking status: Patient/guardian denies using tobacco. - Ebola Screening: : Patient denies travel to an Ebola-affected area in the 21 days before illness onset. - Family history:: not pertinent. - Hospitalizations: : No recent hospitalization is reported. 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 Exam: 14:26 Constitutional: This is a well developed, well nourished patient who is awake, alert, rn and in no acute distress. Head/Face: Normocephalic, atraumatic. Eyes: Periorbital areas with no swelling, redness, or edema. ENT: MMM Cardiovascular: Regular rate and rhythm. No pulse deficits. Respiratory: No increased work of breathing, no retractions or nasal flaring. Abdomen/GI: Soft, non-tender Skin: Warm, dry with normal turgor. Normal color with no rashes, no lesions, and no evidence of cellulitis. Vital Signs: 12:42 BP 113 / 81; Pulse 93; Resp 18; Temp 99.1; Pulse Ox 98% on R/A; Weight 33.57 kg (R); aj1 Height 4 ft. 0 in. (121.92 cm) (R); 14:21 BP 132 / 98; Pulse 93; Resp 16; Pulse Ox 100% ; sv 15:30 Pulse 88; Resp 16; Pulse Ox 100% ; sv 16:20 BP 128 / 77; Pulse 90; Resp 16; Pulse Ox 99% ; sv 12:42 Body Mass Index 22.58 (33.57 kg, 121.92 cm) aj1 MDM: 12:49 Patient medically screened. rn 14:58 Differential diagnosis: UTI, wound infection, bacteremia. Data reviewed: vital signs, rn nurses notes, lab test result(s), and as a result, I will admit patient. Counseling: I had a detailed discussion with the patient and/or guardian regarding: the historical points, exam findings, and any diagnostic results supporting the discharge/admit diagnosis, lab results, the need for further work-up and treatment in the hospital. Admission orders: after a detailed discussion of the patient's condition and case, the admit orders are written by me. ED course: Pt with blood culture+ for coagulase neg staph, not improving. Urine seems to be clearing up, source may be wound on left buttocks with increased drainage. Admitted to Dr. Ramos. . 08/17 12:59 Order name: CBC with Diff; Complete Time: 13:48 rn 08/17 12:59 Order name: Basic Metabolic Panel; Complete Time: 14:12 rn 08/17 12:59 Order name: Urine Culture rn 08/17 12:59 Order name: Urine Microscopic Only; Complete Time: 13:48 rn 08/17 12:59 Order name: Blood Culture Adult (2) rn 08/17 12:59 Order name: Procalcitonin; Complete Time: 14:12 rn 08/17 13:09 Order name: Urine Dipstick--Ancillary (enter results) ms 08/17 13:09 Order name: Urine --Ancillary (enter results) ms 08/17 13:11 Order name: Urine --Ancillary; Complete Time: 13:48 EDMS 08/17 13:11 Order name: Urine Dipstick-Ancillary; Complete Time: 13:48 EDMS 08/17 14:53 Order name: Wound Culture rn 08/17 12:59 Order name: IV Start; Complete Time: 14:17 rn 08/17 12:59 Order name: Urine Dipstick-Ancillary (obtain specimen); Complete Time: 13:10 rn Administered Medications: 15:39 CANCELLED (Pt allergic to): vancoMYCIN 1 grams IVPB once over 2 hrs sv 16:05 Drug: [place] 10 mg-325 mg 1 tabs Route: PO; sv 16:37 Follow up: Response: No adverse reaction; RASS: Alert and Calm (0) sv 16:06 Drug: Cefepime 1 grams Route: IVPB; Rate: 200 ml/hr; Infused Over: 30 mins; Site: left sv antecubital; 16:37 Follow up: Response: No adverse reaction; IV Status: Completed infusion; IV Intake: sv 100ml Disposition: 08/17/19 15:00 Hospitalization ordered by Bobo Ramos for Inpatient Admission. Preliminary diagnosis are Wound infection, Bacteremia, Vomiting. - Bed requested for Telemetry/MedSurg (Inpatient). - Status is Inpatient Admission. sv - Condition is Stable. - Problem is an ongoing problem. - Symptoms have improved. UTI on Admission? No Signatures: Dispatcher [employer] EDAZ Clemencia Doran RN RN ajMckenzie Louis RN RN sv Gay, Steven, RN RN sg Villarreal, Maria ms Nieto, Roman, MD MD consultant rn: (The following items were deleted from the chart) 15:39 14:53 vancoMYCIN 1 grams IVPB once over 2 hrs ordered. rn sv 15:39 15:38 vancoMYCIN 1 grams IVPB once over 2 hrs ordered. sv sv 15:54 15:00 Hospitalization Ordered by Bobo Ramos MD for Inpatient Admission. Preliminary ms diagnosis is Wound infection; Bacteremia; Vomiting. Bed requested for Telemetry/MedSurg (Inpatient). Status is Inpatient Admission. Condition is Stable. Problem is an ongoing problem. Symptoms have improved. UTI on Admission? No. rn 16:37 15:54 08/17/2019 15:00 Hospitalization Ordered by Bobo Ramos MD for Inpatient sv Admission. Preliminary diagnosis is Wound infection; Bacteremia; Vomiting. Bed requested for Telemetry/MedSurg (Inpatient). Status is Inpatient Admission. Condition is Stable. Problem is an ongoing problem. Symptoms have improved. UTI on Admission? No. ms
[2019-08-17] MEDS ORDERED: CEFEPIME/SWI 1gm 10 ML IVP ONE (15:15)
[2019-08-17] MEDS ORDERED: HYDROCODONE/APAP 10/325 TAB ONE (15:45)
[2019-08-17] MEDS ORDERED: CEFEPIME 1 GM/100 ML BAG IV ONE ×2 (15:55→16:00)
[2019-08-17] MEDS ORDERED: VANCOMYCIN 1 GM in NA CHLORIDE 0.9% 250 ML IVPB ONE (16:00)
[2019-08-17] MEDS ORDERED: ONDANSETRON 4 MG/2 ML VIAL IV PRN (16:34)
[2019-08-17] MEDS ORDERED: VANCOMYCIN/NS 1 gm 1 GM/250 ML BAG IVPB SCH (16:34)
[2019-08-17 17:16] VITALS: BMI 21.5
[2019-08-17] MEDS: NA CHLORIDE 0.9% 1,000 ML IV SCH (17:21)
[2019-08-17] MEDS: ENOXAPARIN 40 MG/0.4 ML SQ SCH (17:22)
[2019-08-17] MEDS: MORPHINE 2 MG/ML SYR IV PRN (17:57)
[2019-08-17] MEDS ORDERED: HOME MED 1 EA UNK (Oxycodone Hcl/Acetaminophen [Oxycodone-Acetaminophen 10-325] 1 TAB) PO PRN (18:08)
[2019-08-17] MEDS: LABETALOL HCL 100 MG TAB PO SCH (20:40)
[2019-08-17] MEDS: Oxycodone HCl/Acetaminophen 1 TAB TAB PO PRN (20:40)
[2019-08-17] MEDS: DOXYCYCLINE 100 MG in NA CHLORIDE 0.9% 100 ML IVPB SCH (20:41)
[2019-08-17] MEDS ORDERED: CEFEPIME 2 GM VIAL IV SCH (21:00)
[2019-08-17] MEDS ORDERED: HOME MED 1 EA UNK (Labetalol Hcl [Trandate] 200 MG) PO SCH (21:00)
[2019-08-17] MEDS ORDERED: TRAZODONE 50 MG TABLET PO ONE (22:09)
[2019-08-18] MEDS: NA CHLORIDE 0.9% 1,000 ML IV SCH ×3 (02:34→20:06)
--- NOTE | 2019-08-18 02:42 | HP ---
Date of Admission: 08/17/2019 Primary Care Physician: Dr. Smallwood. Chief Complaint: Nausea, vomiting, and fever. History Of Present Illness: Patient is a 29-year-old female with past medical history of spina bifida, hypertension, recurrent UTIs, who was recently in the ER for symptoms of UTI. Patient was given doxycycline and Augmentin. Cultures were obtained at that time and was discharged. She has not improved with those antibiotics and she was switched over to Cipro 2 days prior to admission. Patient continued having fever, chills, nausea, and vomiting. Therefore, came back to the ER for further evaluation. Patient's symptoms are constant, moderate, progressively worsening. Reviewing the previous culture results, it was positive for Staph hominis in the blood, which was sensitive to tetracycline and vancomycin. Urine culture from August 06 resistant to Cipro, but sensitive to Augmentin and tetracycline as well. Patient was then referred for admission. Her workup revealed a white count of 12,000 with left shift. Patient has been on antibiotics. UA at this point was negative. Patient was given dose of vancomycin and cefepime and referred for admission. When seen in the ER she was awake, alert, oriented x3, in some mild distress. Past Medical History: Spina bifida, scoliosis, hypertension, and decubitus ulcers. Past Surgical History: Multiple back surgeries, right great toe amputated, bowel surgery, suprapubic stoma, HOUSE CARPENTER shunt. Allergies: TO ADHESIVE TAPE, LATEX, AND SULFA. Family History: Mother has hypertension, diabetes, lupus. Father has hypertension and hyperlipidemia. Social History: Patient denies any tobacco use, alcohol use, or illicit drug use. Review of Systems: Ten-point system reviewed, negative except as per HPI. Physical Examination: Vital Signs: Blood pressure 113/81, pulse 93, respirations 18, temperature 99.1 , O2 saturation 98% on room air, BMI 22. General: Awake, alert, oriented x3, in some mild distress, ill-appearing female. HEENT: Normocephalic, atraumatic. PERRLA. EOMI. Moist mucous membranes. Oropharynx is clear conjunctivae anicteric. Neck: Supple. No JVD. Trachea midline. CV: S1, S2. Regular rate and rhythm. Peripheral pulses present. Respiratory: Moving air well bilaterally. No wheezing or stridor. No use of accessory muscles. Gastrointestinal: Abdomen is soft, nontender, nondistended. Positive bowel sounds. Extremities: No clubbing, cyanosis. Patient has lower extremity edema. Neurologic: Patient has weakness of the lower extremities. Normal speech. Cranial nerves 2 through 12 are intact grossly. Musculoskeletal: Patient has contractures and scoliosis. Skin: Patient has sacral decubitus ulcer. RNMckenzie in the ER present at the time of exam. Laboratory Data: Sodium 141, potassium 3.8, chloride 111, CO2 of 21, BUN 7, creatinine 0.46, glucose 108, calcium 9.2, Procalcitonin less than 0.05. WBC 12.2, H and H 14 and 42.5, platelets 227, neutrophils 78%. UA is negative. Urine test is also negative. Wound cultures from August 06 growing Staph hominis and urine culture growing out E coli. Assessment And Plan: A 29-year-old female with: 1. Bacteremia secondary to Staphylococcus hominis. We will start on IV vancomycin. Repeat blood cultures, failed outpatient treatment. 2. Acute cystitis without hematuria secondary to Escherichia coli with failed outpatient treatment. We will continue with cefepime. Repeat urine cultures. We will consult Infectious Disease. 3. Sacral decubitus ulcer stage 3. We will obtain wound cultures and have [facility] evaluate the patient. Continue with IV antibiotics. 4. Spina bifida. 5. Essential hypertension, stable. 6. Paraplegia. 7. Scoliosis. 8. Deep venous thrombosis prophylaxis with Lovenox. Plan: Admit the patient to Med-Surg, place as inpatient. Length of stay greater than 2 midnights. May need surgical consultation if not improving for debridement. /TEZNIN Voice ID: [id number] [facility] CENTERMandeep
[2019-08-18] MEDS: PANTOPRAZOLE 40MG TABLET PO SCH (06:04)
[2019-08-18] MEDS: MORPHINE 2 MG/ML SYR IV PRN ×3 (06:04→17:51)
[2019-08-18 06:11] LABS: Absolute Lymphocytes (CBC) 1.7 K/uL (0.7-4.9); Basophils % 0.4 % (0-1.3); Hematocrit 36.2 % (36.0-45.0); Lymphocytes % 18.3 % (15.3-44.8); MPV 9.3 fL (7.6-11.3); RBC Red Blood Cell Count 3.99 M/uL (3.86-4.86)
[2019-08-18 06:27] LABS: BUN Blood Urea Nitrogen 7 mg/dL (7-18); Bicarbonate 21 mmol/L (21-32); Glucose Level 98 mg/dL (74-106); Potassium 3.2 mmol/L (3.5-5.1); Sodium Level 140 mmol/L (136-145)
[2019-08-18] MEDS: LABETALOL HCL 100 MG TAB PO SCH ×2 (07:38→20:06)
[2019-08-18] MEDS: Oxycodone HCl/Acetaminophen 1 TAB TAB PO PRN ×3 (07:57→20:06)
[2019-08-18] MEDS: DOXYCYCLINE 100 MG in NA CHLORIDE 0.9% 100 ML IVPB SCH (09:00)
[2019-08-18] MEDS ORDERED: HOME MED 1 EA UNK (Omeprazole [Omeprazole] 20 MG) PO SCH (09:00)
[2019-08-18] MEDS: CEFEPIME/SWI 2gm 2 GM/20 ML SYR IVP SCH ×2 (09:02→20:04)
--- NOTE | 2019-08-18 16:10 | PN ---
Date of Progress Note: 08/18/2019 Subjective: Patient is seen and examined. Chart reviewed and case discussed with RN. No acute events overnight. Patient did well. No fevers. Patient is complaining of some pain, asking for us to increase her pain medication dose to her home dose, which is 10 mg instead of 5. Medications: List reviewed. Physical Examination: Vital Signs: Temperature 97.8, heart rate 101, blood pressure 114/66, respirations 18, O2 of 98% on room air. General: Awake, alert, oriented x3. Ill-appearing female. CV: S1, S2. Sinus tachycardia. Peripheral pulses present. Respiratory: Moving air well bilaterally. No wheezing or stridor. Gastrointestinal: Abdomen is soft, nontender, nondistended. Positive bowel sounds. Extremities: No clubbing, cyanosis, edema. Neuro: The patient has paraplegia. Skin: Patient has decubitus ulcer. Laboratory Data: Sodium 140, potassium 3.2, chloride 112, CO2 of 21, BUN 7, creatinine 0.24, glucose 98, calcium 8.4. WBC 9.1, H and H of 12.3 and 36.2, platelets 259, neutrophils 73%. Repeat blood cultures are pending. Blood cultures from August 06 growing out Staphylococcus hominis sensitive to doxycycline. Urine culture growing out E coli from August 06. Current urine culture shows no growth. Wound from the left buttock is pending. Assessment: A 29-year-old female with: 1. Bacteremia secondary to Staphylococcus hominis. Patient apparently had a reaction to vancomycin on previous admission. Her allergy list has been updated. She is now on doxycycline, which the cultures were sensitive to. Repeat blood cultures are pending at this time. May need long-term IV antibiotics. Infectious Disease has been consulted. We will hold off on PICC line placement until ID recommendations are obtained. 2. Acute cystitis without hematuria secondary to Escherichia coli with failed outpatient treatment. We will continue with cefepime. Repeat cultures are pending. 3. Sacral decubitus ulcer stage III. [facility] with [facility]. Wound cultures are pending. Continue with antibiotics. 4. Spina bifida. 5. Paraplegia. 6. Essential hypertension, stable. 7. Severe scoliosis. 8. Hypokalemia. We will replace and monitor. 9. Deep vein thrombosis prophylaxis, Lovenox. Plan: Continue IV antibiotics, likely DC in the next 24 to 48 hours depending on clinical response and culture results. Possible need for long-term IV antibiotics. ID viktor pending. /TENZIN Voice ID: [id number] Report ID: [id number] MTDMandeep
[2019-08-18] MEDS: MEDIHONEY 44 ML TOPICAL TUBE TOP SCH (17:18)
[2019-08-18] MEDS: ENOXAPARIN 40 MG/0.4 ML SQ SCH (17:18)
--- NOTE | 2019-08-18 19:34 | CON ---
History Of Present Illness: Patient is a 29-year-old with significant history of spina bifida, comin g in with fevers, leukocytosis with recent history of urinary tract infection and bacteremia secondar y to Staph hominis and urinary tract infection secondary to E coli. Patient has also symptoms of caio sea and vomiting. Denies any headache, nausea, chest pain, abdominal pain, constipation, or diarrhea . Later, she delivered a normal child at [facility]. Past Medical History: As per HPI. Social History: Nonsmoker, nondrinker. Medications: Cefepime and doxycycline. Allergies: INCLUDE SULFA DRUGS, VANCOMYCIN CAUSING HER TO HAVE HIVES AND RASH. Review of Systems: A 10-point review was performed. Physical Examination: General: Patient lying in bed, not in any acute cardiopulmonary distress. Vital Signs: Temperature 97, pulse 90, respirations 18, blood pressure 107/57. HEENT: Unremarkable. Neck: Supple. Lungs: Clear to auscultation. Heart: S1, S2. Regular. Abdomen: Soft. Bowel sounds present. Extremities: 2+ edema. Suprapubic catheter and peripheral line noted. Laboratory Data: Shows WBC 9.1, down from 12.2; hemoglobin 12.3; platelets are 259. Chemistry shows sodium 140, potassium 3.2, chloride 112, bicarb 21, BUN 7, creatinine 0.24, glucose is 98. Micro da ta shows cultures from August 06, E coli in urine and blood cultures on August 06, Staph hominis. Blood cultures and urine are not showing any growth at this time. Assessment And Plan: Patient with recent history of Staphylococcus hominis bacteremia secondary to S taphylococcus hominis and urinary tract infection secondary to Escherichia coli. I agree with doxycy kruger 100 mg. Escherichia coli urinary tract infection, we will recommend doxycycline to be continue d for total of 14 days. We will follow patient as needed. Thank you, Dr. Ramos for consult. MORIS/TENZIN Voice ID: [id number] Report ID: [id number]
[2019-08-18] MEDS: NA CHLORIDE 0.9% IVPB SCH (20:05)
[2019-08-18] MEDS: DOXYCYCLINE IVPB SCH (20:05)
[2019-08-18] MEDS ORDERED: TRAZODONE 50 MG TABLET PO ONE (22:09)
[2019-08-18] MEDS: TRAZODONE 50 MG TABLET PO PRN (22:37)
[2019-08-19] MEDS: Oxycodone HCl/Acetaminophen 1 TAB TAB PO PRN ×3 (05:37→18:36)
[2019-08-19] MEDS: PANTOPRAZOLE 40MG TABLET PO SCH (05:37)
[2019-08-19] MEDS: NA CHLORIDE 0.9% 1,000 ML IV SCH ×2 (05:38→16:13)
[2019-08-19 05:42] LABS: Absolute Lymphocytes (CBC) 2.1 K/uL (0.7-4.9); Basophils % 0.4 % (0-1.3); Hematocrit 33.6 % (36.0-45.0); Lymphocytes % 27.3 % (15.3-44.8); MPV 8.8 fL (7.6-11.3); RBC Red Blood Cell Count 3.66 M/uL (3.86-4.86)
[2019-08-19 05:56] LABS: BUN Blood Urea Nitrogen 6 mg/dL (7-18); Bicarbonate 21 mmol/L (21-32); Glucose Level 95 mg/dL (74-106); Potassium 3.2 mmol/L (3.5-5.1); Sodium Level 145 mmol/L (136-145)
[2019-08-19] MEDS: LABETALOL HCL 100 MG TAB PO SCH ×2 (07:29→21:24)
[2019-08-19] MEDS: MORPHINE 2 MG/ML SYR IV PRN ×3 (07:30→21:33)
[2019-08-19] MEDS: CEFEPIME/SWI 2gm 2 GM/20 ML SYR IVP SCH ×2 (07:33→21:24)
[2019-08-19] MEDS: MEDIHONEY 44 ML TOPICAL TUBE TOP SCH (07:34)
[2019-08-19] MEDS: DOXYCYCLINE IVPB SCH ×2 (09:00→21:34)
[2019-08-19] MEDS: NA CHLORIDE 0.9% IVPB SCH ×2 (09:00→21:34)
[2019-08-19] MEDS: ACETAMINOPHEN 500 MG TAB PO PRN ×2 (09:28→17:56)
--- NOTE | 2019-08-19 13:38 | PN ---
Subjective: Patient lying in bed. No fevers. Denies any other problems at this time. Objective: Vital Signs: Temperature 97, pulse 59, respirations 17, blood pressure 105/65. Lungs: Clear to auscultation. Heart: S1, S2. Regular. Abdomen: Soft, nontender. Bowel sounds present. EXTREMITIES: Trace edema with wound noted. Laboratory Data: hemoglobin 9.4, platelets 235. Chemistry shows sodium 145, potassium 3.2, chloride 118, bicarb 21, BUN 6, creatinine 0.28, glucose 95. Assessment And Plan: Cultures from the blood and urine are negative as patient came in with fevers and leukocytosis on doxycycline oral. We will discontinue doxycycline, vancomycin, getting PICC line and get an MRI to rule out osteomyelitis of the bone. Also noted to have PICC line placement and consider sending the patient home with vancomycin IV depending on MRI results and duration of antibiotic will be adjusted. NF/MODL Voice ID: [id number] Report ID: [id number] W[facility]
--- NOTE | 2019-08-19 13:38 | P.PN ---
Subjective Date of Service: 08/19/19 Chief Complaint: stable. denies any new complaints. Physical Examination - Vital Signs Temperature: 97.3 F Blood Pressure: 105/65 Pulse: 89 Respirations: 17 Pulse Ox (%): 98 - Physical Exam General: Alert, In no apparent distress HEENT: Atraumatic, PERRLA, EOMI Neck: Supple, JVD not distended Respiratory: Clear to auscultation bilaterally, Normal air movement Cardiovascular: Regular rate/rhythm, Normal S1 S2 Gastrointestinal: Normal bowel sounds, No tenderness Musculoskeletal: Contractures Integumentary: Other (decubitis) Neurological: Normal tone, Normal affect - Studies Microbiology Data (last 24 hrs): 08/17/19 13:07 Catheterized Urine Shelley Count - Final 08/17/19 13:07 Catheterized Urine - Final No growth. 08/17/19 15:15 Blood - Blood Anaerobic Blood Culture - Final 08/17/19 13:20 Blood - Blood Anaerobic Blood Culture - Final Assessment And Plan - Plan 1. Bacteremia secondary to Staphylococcus hominis- Patient apparently had a reaction to vancomycin on previous admission. Allergy is questionable. -DW ID, will switch to vancomycin and monitor closely -Obtain MRI of the pelvis to rule out osteo -Picc line for IV abx. -further recommendation per ID #Acute cystitis without hematuria secondary to Escherichia coli with failed outpatient treatment- will continue with cefepime. - Repeat cultures are pending. # Sacral decubitus ulcer stage III. [facility]. -MRI ordered -Wound cultures are pending. Continue with antibiotics. # Spina bifida. # Paraplegia. #Essential hypertension, stable. # Severe scoliosis. # Hypokalemia-monitor. # Deep vein thrombosis prophylaxis, Lovenox.
[2019-08-19] MEDS: VANCOMYCIN 750 MG in NA CHLORIDE 0.9% 150 ML IVPB SCH (14:00)
[2019-08-19] MEDS ORDERED: ALPRAZOLAM 0.25 MG TABLET PO ONE (15:49)
[2019-08-19] MEDS: ENOXAPARIN 40 MG/0.4 ML SQ SCH (16:11)
--- NOTE | 2019-08-19 18:45 | RAD REPORT ---
EXAM DESCRIPTION: MRI - Sacrum/Coccyx Wo Cont - 08/19/2019 6:34 pm CLINICAL HISTORY: rule out osteomyelitis Decubitus ulcer, possible osteomyelitis. COMPARISON: No comparisons FINDINGS: Severe motion artifact is present which quite severely limits the quality study. Within this limitation, there is no evidence of sacrococcygeal osteomyelitis seen. Focal ulceration i s seen along the posterior soft tissues lower back. No drainable fluid collection evident. IMPRESSION: Extremely limited study due to patient motion. Within this limitation, there is no MR ev idence of sacrococcygeal osteomyelitis at this time.
[2019-08-19] MEDS ORDERED: VANCOMYCIN IVPB SCH (21:00)
[2019-08-19] MEDS ORDERED: NA CHLORIDE 0.9% IVPB SCH (21:00)
[2019-08-19] MEDS ORDERED: LIDOCAINE 1% MPF 5 ML VIAL ONE (21:44)
[2019-08-19] MEDS ORDERED: LORAZEPAM 0.5 MG TABLET PO ONE (22:26)
[2019-08-20] MEDS: Oxycodone HCl/Acetaminophen 1 TAB TAB PO PRN ×4 (00:29→20:10)
[2019-08-20] MEDS: VANCOMYCIN 750 MG in NA CHLORIDE 0.9% 150 ML IVPB SCH ×2 (02:15→13:57)
[2019-08-20] MEDS: MORPHINE 2 MG/ML SYR IV PRN ×2 (02:15→05:48)
[2019-08-20] MEDS: NA CHLORIDE 0.9% 1,000 ML IV SCH ×3 (04:34→14:34)
[2019-08-20] MEDS: PANTOPRAZOLE 40MG TABLET PO SCH (05:38)
[2019-08-20 06:11] LABS: Basophils % 0.4 % (0-1.3); Hematocrit 29.3 % (36.0-45.0); Lymphocytes % 30.8 % (15.3-44.8); MPV 8.8 fL (7.6-11.3); RBC Red Blood Cell Count 3.19 M/uL (3.86-4.86)
[2019-08-20 07:09] LABS: BUN Blood Urea Nitrogen 7 mg/dL (7-18); Bicarbonate 23 mmol/L (21-32); Glucose Level 84 mg/dL (74-106); Magnesium 1.5 mg/dL (1.8-2.4); Sodium Level 145 mmol/L (136-145)
[2019-08-20 07:17] LABS: Potassium 2.9 mmol/L (3.5-5.1)
[2019-08-20] MEDS: CEFEPIME/SWI 2gm 2 GM/20 ML SYR IVP SCH ×2 (08:30→20:11)
[2019-08-20] MEDS: LABETALOL HCL 100 MG TAB PO SCH ×2 (08:31→20:10)
[2019-08-20] MEDS ORDERED: Magnesium Sulfate 2gm IVPB 2 G/50 ML BAG IV ONE (08:31)
[2019-08-20] MEDS: MEDIHONEY 44 ML TOPICAL TUBE TOP SCH (08:32)
[2019-08-20] MEDS ORDERED: POTASSIUM CL SA 10 MEQ TAB PO ONE (09:00)
--- NOTE | 2019-08-20 11:33 | RAD REPORT ---
EXAM DESCRIPTION: Chest Single View CLINICAL HISTORY: 29 years Female PICC Placement COMPARISON: None TECHNIQUE: AP view of the chest was obtained. FINDINGS: Marked scoliotic deformity. Cardiac size is within normal limits. Central vessels are not increased. Right ventriculoperitoneal shunt tubing. Right peripheral catheter is present with the tip seen at the atrial caval junction. No pneumothorax. No infiltrates or effusions. IMPRESSION: Satisfactory right peripheral catheter placement. Tip seen at atrial caval junction. Scoliotic deformity. No infiltrate seen. Electronically signed by: Josefina Elias MD 08/20/2019 12:35 AM CERTIFIED MEDICAL TRANSCRIPTIONIST Due to temporary technical issues with the PACS/Fluency reporting system, reports are being signed by the in house radiologist as a courtesy to ensure prompt reporting. The interpreting radiologist is f ully responsible for the content of the report.
[2019-08-20] MEDS: ACETAMINOPHEN 500 MG TAB PO PRN (11:53)
--- NOTE | 2019-08-20 12:39 | P.PN ---
Subjective Date of Service: 08/20/19 Chief Complaint: stable. denies any new complaints. Stable, denies any new complaints. Afebrile. Physical Examination - Vital Signs Temperature: 97.7 F Blood Pressure: 133/78 Pulse: 90 Respirations: 17 Pulse Ox (%): 100 - Physical Exam General: Alert, In no apparent distress HEENT: Atraumatic, PERRLA, EOMI Neck: Supple, JVD not distended Respiratory: Clear to auscultation bilaterally, Normal air movement Cardiovascular: Regular rate/rhythm, Normal S1 S2 Gastrointestinal: Normal bowel sounds, No tenderness Musculoskeletal: Contractures, Kyphosis, Scoliosis Integumentary: Pressure ulcer Neurological: Normal speech, Normal tone, Normal affect Lymphatics: No axilla or inguinal lymphadenopathy - Studies Microbiology Data (last 24 hrs): 08/17/19 13:07 Catheterized Urine Equality Count - Final 08/17/19 13:07 Catheterized Urine - Final No growth. Assessment And Plan - Plan 1. Bacteremia secondary to Staphylococcus hominis- Patient apparently had a reaction to vancomycin on previous admission. Allergy is questionable. -DW ID, will switch to vancomycin and monitor closely -Osteo ruled out -Picc line for IV abx. -further recommendation per ID #Acute cystitis without hematuria secondary to Escherichia coli with failed outpatient treatment- will continue with cefepime. - Repeat cultures are pending. # Sacral decubitus ulcer stage III. [facility]. -MRI ordered -Wound cultures are pending. Continue with antibiotics. # Spina bifida. # Paraplegia. #Essential hypertension, stable. # Severe scoliosis. # Hypokalemia-monitor. # Deep vein thrombosis prophylaxis, Lovenox. Dispo- ok to dc once cleared by ID
[2019-08-20] MEDS: ENOXAPARIN 40 MG/0.4 ML SQ SCH (16:12)
[2019-08-20] MEDS: TRAZODONE 50 MG TABLET PO PRN (22:30)
[2019-08-21] MEDS: NA CHLORIDE 0.9% 1,000 ML IV SCH ×3 (00:55→21:02)
[2019-08-21] MEDS: VANCOMYCIN 750 MG in NA CHLORIDE 0.9% 150 ML IVPB SCH ×2 (03:09→15:10)
[2019-08-21] MEDS: Oxycodone HCl/Acetaminophen 1 TAB TAB PO PRN ×4 (03:09→21:02)
[2019-08-21] MEDS: PANTOPRAZOLE 40MG TABLET PO SCH (05:08)
[2019-08-21 05:10] LABS: Absolute Lymphocytes (CBC) 1.8 K/uL (0.7-4.9); Basophils % 0.4 % (0-1.3); Hematocrit 31.1 % (36.0-45.0); Lymphocytes % 24.6 % (15.3-44.8); MPV 8.5 fL (7.6-11.3)
[2019-08-21 05:25] LABS: BUN Blood Urea Nitrogen 6 mg/dL (7-18); Bicarbonate 25 mmol/L (21-32); Glucose Level 104 mg/dL (74-106); Magnesium 1.8 mg/dL (1.8-2.4); Potassium 3.9 mmol/L (3.5-5.1); Sodium Level 144 mmol/L (136-145)
[2019-08-21] MEDS: LABETALOL HCL 100 MG TAB PO SCH ×2 (08:33→21:02)
[2019-08-21] MEDS: CEFEPIME/SWI 2gm 2 GM/20 ML SYR IVP SCH ×2 (08:34→21:02)
[2019-08-21] MEDS: MEDIHONEY 44 ML TOPICAL TUBE TOP SCH (09:00)
--- NOTE | 2019-08-21 16:45 | P.DS ---
Admission Date: 08/17/19 Discharge Date: 08/21/19 Disposition: DC HOME/HOME HEALTH CARE Discharge Condition: GOOD Reason for Admission: stable. denies any new complaints. Vital Signs/Physical Exam: Temp Pulse Resp BP Pulse Ox 98.0 F 94 H 14 128/63 97 08/21/19 12:00 08/21/19 12:00 08/21/19 15:08 08/21/19 12:00 08/21/19 15:08 Laboratory Data at Discharge: WBC 7.3 K/uL (4.3-10.9) D 08/21/19 05:00 Hgb 10.6 g/dL (12.0-15.0) L 08/21/19 05:00 Hct 31.1 % (36.0-45.0) L 08/21/19 05:00 Plt Count 235 K/uL (152-406) 08/21/19 05:00 Sodium 144 mmol/L (136-145) 08/21/19 05:00 Potassium 3.9 mmol/L (3.5-5.1) 08/21/19 05:00 BUN 6 mg/dL (7-18) L 08/21/19 05:00 Creatinine 0.18 mg/dL (0.55-1.3) L 08/21/19 05:00 Glucose 104 mg/dL (74-106) 08/21/19 05:00 Magnesium 1.8 mg/dL (1.8-2.4) 08/21/19 05:00 Home Medications: Labetalol HCl [Trandate] 200 mg PO BID 08/17/19 Omeprazole 20 mg PO DAILY 08/17/19 Oxycodone HCl/Acetaminophen [Oxycodone-Acetaminophen 10-325] 1 tab PO Q6HP PRN 08/17/19 Diet: Regular Activity: Bedrest Followup: Abdulkadir Ibarra MD [ACTIVE - CAN ADMIT] - Shirley Smallwood MD [Primary Care Provider] -
[2019-08-21 16:49] VITALS: O2SAT 97
[2019-08-21] MEDS: ENOXAPARIN 40 MG/0.4 ML SQ SCH (16:51)
--- NOTE | 2019-08-21 17:33 | P.PN ---
Subjective Date of Service: 08/21/19 Chief Complaint: stable. denies any new complaints. Stable, denies any new complaints. Afebrile. Physical Examination - Vital Signs Temperature: 98.5 F Blood Pressure: 137/60 Pulse: 96 Respirations: 15 Pulse Ox (%): 100 Assessment And Plan - Plan 1. Bacteremia secondary to Staphylococcus hominis- Patient apparently had a reaction to vancomycin on previous admission. Allergy is questionable. -DW ID, will switch to vancomycin and monitor closely -Osteo ruled out -Picc line for IV abx. -further recommendation per ID #Acute cystitis without hematuria secondary to Escherichia coli with failed outpatient treatment- will continue with cefepime. - Repeat cultures are pending. # Sacral decubitus ulcer stage III. [facility]. -MRI ordered -Wound cultures are pending. Continue with antibiotics. # Spina bifida. # Paraplegia. #Essential hypertension, stable. # Severe scoliosis. # Hypokalemia-monitor. # Deep vein thrombosis prophylaxis, Lovenox. Dispo- ok to dc once cleared by ID
--- NOTE | 2019-08-21 20:43 | PN ---
Subjective: Patient lying in bed. No new acute event. Denies any headache, nausea, vomiting, chest pain, abdominal pain, constipation, or diarrhea. Complaints of yeast infection in her perineal area . Objective: Vital Signs: Temperature 98, pulse 94, respirations 13, blood pressure 128/63. MRI repo rt is negative for osteomyelitis. Lungs: Clear to auscultation. Heart: S1, S2. Regular. Abdomen: Soft, nontender. Bowel sounds present. Extremities: Trace edema. Laboratory Data: WBC 7.3, hemoglobin 10.6, platelets are 235. Chemistry shows sodium 144, potassium 3.9, chloride 115, bicarb 25, BUN 6, creatinine 0.18, glucose is 104. Assessment/plan: Currently getting cefepime and vancomycin to continue total course of 2 weeks from the day of start. Also apply nystatin cream to the rash area and perineal area. We will follow the patient closely. Patient can be discharged on antibiotics. NF/MODL Voice ID: [id number] Report ID: [id number]
[2019-08-21] MEDS: NYSTATIN OINT 15 GM TUBE TOP SCH (21:00)
[2019-08-21] MEDS: TRAZODONE 50 MG TABLET PO PRN (22:44)
[2019-08-22] MEDS: VANCOMYCIN 750 MG in NA CHLORIDE 0.9% 150 ML IVPB SCH ×2 (03:30→15:14)
[2019-08-22] MEDS: Oxycodone HCl/Acetaminophen 1 TAB TAB PO PRN ×3 (03:32→16:22)
[2019-08-22] MEDS: PANTOPRAZOLE 40MG TABLET PO SCH (05:34)
[2019-08-22 06:03] LABS: BUN Blood Urea Nitrogen 5 mg/dL (7-18); Bicarbonate 27 mmol/L (21-32); Glucose Level 89 mg/dL (74-106); Potassium 3.8 mmol/L (3.5-5.1); Sodium Level 144 mmol/L (136-145)
[2019-08-22] MEDS: NYSTATIN OINT 15 GM TUBE TOP SCH (09:00)
[2019-08-22] MEDS: MEDIHONEY 44 ML TOPICAL TUBE TOP SCH (09:00)
[2019-08-22] MEDS: LABETALOL HCL 100 MG TAB PO SCH (09:57)
[2019-08-22] MEDS: CEFEPIME/SWI 2gm 2 GM/20 ML SYR IVP SCH (09:58)
--- NOTE | 2019-08-22 13:52 | P.DS ---
Admission Date: 08/17/19 Discharge Date: 08/22/19 Disposition: [place] HOME/HOME HEALTH CARE Discharge Condition: GOOD Reason for Admission: stable. denies any new complaints. Consultations: ID Hospital Course: Ms. Estrella is a 29-year-old female with past medical history of spina bifida, hypertension, recurrent UTIs, who was recently in the ER for symptoms of UTI. Patient was given doxycycline and Augmentin, cultures were obtained at that time and was discharged. She did not improve with those antibiotics and she was switched over to Cipro 2 days prior to admission. Patient continued having fever, chills, nausea, and vomiting. Therefore, came back to the ER for further evaluation. Patient's symptoms are constant, moderate, progressively worsening. Initial evaluation found patient to be in sepsis secondary to UTI. Patient also has infected pressure ulcer that likely contributed to septic state. She was evaluated by Infectious Disease and sacral coccygeal osteomyelitis was ruled out with MRI. Given that patient had failed multiple p.o. antibiotics, she was placed on IV vancomycin and cefepime and significantly improved. Patient will be discharged home with IV vancomycin and cefepime per ID discretion. She remained hemodynamically stable for discharge With home health. Vital Signs/Physical Exam: Temp Pulse Resp BP Pulse Ox 98.7 F 87 18 150/69 H 98 08/22/19 12:00 08/22/19 12:00 08/22/19 12:00 08/22/19 12:00 08/22/19 12:00 General: Alert, In no apparent distress, Cachectic, Other HEENT: Atraumatic, PERRLA, EOMI Neck: Supple, JVD not distended Respiratory: Clear to auscultation bilaterally, Normal air movement Cardiovascular: Regular rate/rhythm, Normal S1 S2 Gastrointestinal: Normal bowel sounds, No tenderness Musculoskeletal: Kyphosis, Scoliosis Integumentary: No rashes, Pressure ulcer Neurological: Normal speech, Normal tone, Normal affect Lymphatics: No axilla or inguinal lymphadenopathy Laboratory Data at Discharge: WBC 7.3 K/uL (4.3-10.9) D 08/21/19 05:00 Hgb 10.6 g/dL (12.0-15.0) L 08/21/19 05:00 Hct 31.1 % (36.0-45.0) L 08/21/19 05:00 Plt Count 235 K/uL (152-406) 08/21/19 05:00 Sodium 144 mmol/L (136-145) 08/22/19 05:40 Potassium 3.8 mmol/L (3.5-5.1) 08/22/19 05:40 BUN 5 mg/dL (7-18) L 08/22/19 05:40 Creatinine 0.23 mg/dL (0.55-1.3) L 08/22/19 05:40 Glucose 89 mg/dL (74-106) 08/22/19 05:40 Magnesium 1.8 mg/dL (1.8-2.4) 08/21/19 05:00 Home Medications: Labetalol HCl [Trandate] 200 mg PO BID 08/17/19 Omeprazole 20 mg PO DAILY 08/17/19 Oxycodone HCl/Acetaminophen [Oxycodone-Acetaminophen 10-325] 1 tab PO Q6HP PRN 08/17/19 CEFEPIME/SWI 2gm [Maxipime 2 gm/20 ml Swi Ivp] 2 gm IV Q12HP 10 Days syr Vancomycin 750 mg IV Q12HP 10 Days vial 08/22/19 New Medications: CEFEPIME/SWI 2gm [Maxipime 2 gm/20 ml Swi Ivp] 2 gm IV Q12HP 10 Days syr Vancomycin 750 mg IV Q12HP 10 Days vial Diet: Regular Activity: Bedrest Followup: Abdulkadir Ibarra MD [ACTIVE - CAN ADMIT] - (call to schedule appointment at wound healing clinic ) Shirley Smallwood MD [Primary Care Provider] - (Call to schedule appointment )
[2019-08-22 16:32] VITALS: BP 166/70; TEMP 98.6
== END 2019-08-22 16:37 | disposition home health service (06) | DRG 689 ==
LOC: ER 12:00 → ERHOLD 15:26 → 4TH 16:28
PROVIDERS: ADMIT Family Medicine; ATTEND Hospitalist
DX: N30.00 Acute cystitis without hematuria (principal); L89.153 Pressure ulcer of sacral region, stage 3; G82.20 Paraplegia, unspecified; R78.81 Bacteremia; E87.6 Hypokalemia; I10 Essential (primary) hypertension; B95.7 Other staphylococcus as the cause of diseases classified elsewhere; M41.9 Scoliosis, unspecified; Q05.9 Spina bifida, unspecified
CPT/HCPCS: 36415; 71045; 72195; 80048; 80202; 81003; 81015; 81025; 83605; 83735; 84132; 84145; 85025; 87040; 87070; 87086; 87088; 87205; 94760; 96365; 99285; J0692; J1650; J2270; J3475; J7030

== ENCOUNTER 2019-09-16 20:55 | Emergency (ER) | payer OTHER ==
--- OUTSIDE RECORDS SUMMARY | 2019-09-16 20:57 | XMS REPORT ---
:1990 [facility] Address [address] [place] [address] [address] [place] [address] Care Team Providers Name Role Phone Unavailable Unavailable Unavailable Problems This patient has no known problems. Allergies, Adverse Reactions, Alerts This patient has no known allergies or adverse reactions. Medications This patient has no known medications.
[2019-09-16 22:00] LABS: Absolute Lymphocytes (CBC) 3.1 K/uL (0.7-4.9); Basophils % 0.5 % (0-1.3); Hematocrit 41.2 % (36.0-45.0); Lymphocytes % 23.6 % (15.3-44.8); MPV 8.6 fL (7.6-11.3); RBC Red Blood Cell Count 4.42 M/uL (3.86-4.86)
[2019-09-16 22:05] LABS: Urine Blood NEGATIVE (NEG); Urine Glucose NEGATIVE (NEG); Urine Protein NEGATIVE (NEG)
[2019-09-16 22:35] LABS: Urine Bacteria <20 /HPF (<20); Urine RBC <5 /HPF (NONE SEEN); Urine Urothelial Cells <5 /HPF (NONE SEEN)
[2019-09-16 22:36] LABS: Urine Culture Reflex Order NOT NEEDED
[2019-09-16 23:08] LABS: ALT/SGPT 20 U/L (12-78); AST/SGOT 13 U/L (15-37); Albumin 4.3 g/dL (3.4-5.0); Alkaline Phosphatase 108 U/L (45-117); BUN Blood Urea Nitrogen 6 mg/dL (7-18); Bicarbonate 26 mmol/L (21-32); Bilirubin Direct 0.1 mg/dL (0-0.2); Bilirubin Total 0.4 mg/dL (0.2-1.0); Glucose Level 92 mg/dL (74-106); Lipase 106 U/L (73-393); Potassium 3.4 mmol/L (3.5-5.1); Protein, Total 8.1 g/dL (6.4-8.2); Sodium Level 138 mmol/L (136-145)
[2019-09-16] MEDS ORDERED: ONDANSETRON 4 MG/2 ML VIAL ONE (23:39)
[2019-09-17] MEDS ORDERED: ACETAMINOPHEN 325 MG TABLET ONE (00:44)
--- NOTE | 2019-09-17 00:52 | ER ---
Nurse's Notes [facility] Name: Shari Estrella Age: 29 yrs Sex: Female : 1990 Arrival Date: 09/16/2019 Time: 20:57 Bed 17 Private MD: Diagnosis: Nausea with vomiting, unspecified Presentation: 09/16 21:05 Presenting complaint: EMS states: Pt C/O nausea and vomiting for the last 2 days, wh denies fever or abdominal pain. Transition of care: patient was not received from another setting of care. Onset of symptoms was September 16, 2019. Risk Assessment: Do you want to hurt yourself or someone else? Patient reports no desire to harm self or others. Initial Sepsis Screen: Does the patient meet any 2 criteria? No. Patient's initial sepsis screen is negative. Does the patient have a suspected source of infection? No. Patient's initial sepsis screen is negative. Care prior to arrival: None. 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 - Coronavirus screen:: The patient has NOT traveled to [place] in the past 14 days. - Social history:: Smoking status: Patient/guardian denies using. - Ebola Screening: : Patient negative for fever greater than or equal to 101.5 degrees Fahrenheit, and additional compatible Ebola Virus Disease symptoms Patient denies exposure to infectious person. Screenin:11 Abuse screen: Denies threats or abuse. Denies injuries from another. Nutritional screening: No deficits noted. Tuberculosis screening: No symptoms or risk factors identified. Fall Risk None identified. Assessment: 21:14 General: Appears in no apparent distress. Behavior is calm, cooperative, appropriate wh for age. Pain: Denies pain. Neuro: Level of Consciousness is awake, alert, obeys commands, Oriented to person, place, time, situation, Appropriate for age. Cardiovascular: Heart tones S1 S2. Respiratory: Airway is patent Respiratory effort is even, unlabored, Respiratory pattern is regular, symmetrical, Breath sounds are clear bilaterally. GI: Abdomen is flat, non-distended, Bowel sounds present X 4 quads. Abd is soft and non tender X 4 quads. Reports nausea, vomiting. : No signs and/or symptoms were reported regarding the genitourinary system. EENT: No signs and/or symptoms were reported regarding the EENT system. Derm: Skin is intact, is healthy with good turgor, Skin is pink, warm \T\ dry. normal, Wound noted buttocks. Musculoskeletal: Circulation, motion, and sensation intact. 22:15 Reassessment: Patient appears in no apparent distress at this time. No changes from previously documented assessment. Patient and/or family updated on plan of care and expected duration. Pain level reassessed. Patient is alert, oriented x 3, equal unlabored respirations, skin warm/dry/pink. 23:30 Reassessment: Patient appears in no apparent distress at this time. No changes from previously documented assessment. Patient and/or family updated on plan of care and expected duration. Pain level reassessed. Patient is alert, oriented x 3, equal unlabored respirations, skin warm/dry/pink. 09/17 01:00 Reassessment: Patient appears in no apparent distress at this time. No changes from previously documented assessment. Patient and/or family updated on plan of care and expected duration. Pain level reassessed. Patient is alert, oriented x 3, equal unlabored respirations, skin warm/dry/pink. Patient denies pain at this time. Patient states feeling better. Patient states symptoms have improved. Vital Signs: 09/16 21:09 BP 148 / 87; Pulse 82; Resp 18; Temp 98.5; Pulse Ox 94% ; Weight 34.02 kg; Height 3 ft. (91.44 cm); 22:31 BP 134 / 95; Pulse 103; Resp 16; Pulse Ox 96% on R/A; ak 09/17 00:00 BP 129 / 77; Pulse 78; Resp 18; Pulse Ox 100% on R/A; 01:00 BP 126 / 78; Pulse 88; Resp 18; Pulse Ox 99% on R/A; 09/16 21:09 Body Mass Index 40.69 (34.02 kg, 91.44 cm) ED Course: 09/16 20:57 Patient arrived in ED. cf2 21:05 Alesha Broderick is Primary Nurse. 21:09 Triage completed. 21:13 Patient has correct armband on for positive identification. Placed in gown. Bed in low wh position. Call light in reach. Side rails up X 1. Pulse ox on. NIBP on. 21:18 Arm band placed on right wrist. 21:20 Elver Lakhani MD is Attending Physician. tw4 22:05 Inserted saline lock: 22 gauge in right forearm, using aseptic technique. Blood mt collected. 23:58 Wound care: to Pressure Ulcer located on right gluteal fold was cleaned with with mt saline , dressed with Tegaderm , packed with 4x4s Patient tolerated well. 09/17 01:16 No provider procedures requiring assistance completed. IV discontinued, intact, bleeding controlled, No redness/swelling at site. Administered Medications: 09/16 22:17 Drug: NS 0.9% 1000 ml Route: IV; Rate: 1 bolus; Site: right forearm; 09/17 01:19 Follow up: Response: No adverse reaction; IV Status: Completed infusion 09/16 22:17 Drug: Zofran 4 mg Route: IVP; Site: right forearm; 09/17 01:18 Follow up: Response: No adverse reaction; Nausea is decreased 09/16 23:39 Drug: Zofran 4 mg Route: IVP; Site: right forearm; 09/17 01:18 Follow up: Response: No adverse reaction; Nausea is decreased 00:42 Drug: Tylenol 650 mg Route: PO; 01:18 Follow up: Response: No adverse reaction; Pain is decreased Outcome: 00:51 Discharge ordered by . tw4 01:16 Discharged to home via wheelchair, with friend. 01:16 Condition: stable 01:16 Discharge instructions given to patient, friend, Instructed on discharge instructions, follow up and referral plans. medication usage, wound care, POC Demonstrated understanding of instructions, follow-up care, medications, wound care, POC Prescriptions given X 2. 01:19 Patient left the ED. wh Signatures: Lashae Ceballos mt, Alesha Elver Lakhani MD MD tw4 Amy Spain cf2 Corrections: (The following items were deleted from the chart) 01:16 02 21:14 Derm: Skin is intact, is healthy with good turgor, Skin is pink, warm \T\ wh dry. normal, wh
--- NOTE | 2019-09-17 00:52 | EDPHYS ---
Physician Documentation [facility] Name: Shari Estrella Age: 29 yrs Sex: Female : 1990 Arrival Date: 09/16/2019 Time: 20:57 Bed 17 Private MD: ED Physician Elver Lakhani HPI: 09/17 05:11 This 29 yrs old Female presents to ER via EMS with complaints of Nausea. tw4 05:11 The patient presents to the emergency department with nausea, that is moderate, tw4 vomiting, 2 times since the onset of symptoms. Onset: The symptoms/episode began/occurred today. Possible causes: unknown. The symptoms are aggravated by The symptoms are alleviated by nothing. Severity of symptoms: At their worst the symptoms were moderate in the emergency department the symptoms are unchanged. The patient has not experienced similar symptoms in the past. 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 - Coronavirus screen:: The patient has NOT traveled to [place] in the past 14 days. - Social history:: Smoking status: Patient/guardian denies using. - Ebola Screening: : Patient negative for fever greater than or equal to 101.5 degrees Fahrenheit, and additional compatible Ebola Virus Disease symptoms Patient denies exposure to infectious person. ROS: 09/17 05:11 Constitutional: Negative for fever, chills, and weight loss, Eyes: Negative for injury, tw4 pain, redness, and discharge, Cardiovascular: Negative for chest pain, palpitations, and edema, Respiratory: Negative for shortness of breath, cough, wheezing, and pleuritic chest pain. Back: Negative for injury and pain, MS/Extremity: Negative for injury and deformity, Skin: Negative for injury, rash, and discoloration, Neuro: Negative for headache, weakness, numbness, tingling, and seizure. Abdomen/GI: Positive for nausea, Negative for abdominal pain, nausea and vomiting, nausea, vomiting, and diarrhea, diarrhea, constipation, abdominal cramps, abdominal distension, anorexia, dysphagia, hematemesis, black/tarry stool, rectal pain, rectal bleeding, flatulence. Exam: 05:11 Constitutional: This is a well developed, well nourished patient who is awake, alert, tw4 and in no acute distress. Head/Face: Normocephalic, atraumatic. Chest/axilla: Normal chest wall appearance and motion. Nontender with no deformity. No lesions are appreciated. Cardiovascular: Regular rate and rhythm with a normal S1 and S2. No gallops, murmurs, or rubs. Normal PMI, no JVD. No pulse deficits. Respiratory: Lungs have equal breath sounds bilaterally, clear to auscultation and percussion. No rales, rhonchi or wheezes noted. No increased work of breathing, no retractions or nasal flaring. Abdomen/GI: Soft, non-tender, with normal bowel sounds. No distension or tympany. No guarding or rebound. No evidence of tenderness throughout. Back: No spinal tenderness. No costovertebral tenderness. Full range of motion. MS/ Extremity: Pulses equal, no cyanosis. Neurovascular intact. Full, normal range of motion. Neuro: Awake and alert, GCS 15, oriented to person, place, time, and situation. Cranial nerves II-XII grossly intact. Motor strength 5/5 in all extremities. Sensory grossly intact. Cerebellar exam normal. Normal gait. 05:11 Skin: Wound recheck: decubitus ulcer stage 3 good granulation tissue, no drainage, mild erythema, left buttock. Vital Signs: 09/16 21:09 BP 148 / 87; Pulse 82; Resp 18; Temp 98.5; Pulse Ox 94% ; Weight 34.02 kg; Height 3 ft. wh (91.44 cm); 22:31 BP 134 / 95; Pulse 103; Resp 16; Pulse Ox 96% on R/A; sc 09/17 00:00 BP 129 / 77; Pulse 78; Resp 18; Pulse Ox 100% on R/A; wh 01:00 BP 126 / 78; Pulse 88; Resp 18; Pulse Ox 99% on R/A; 09/16 21:09 Body Mass Index 40.69 (34.02 kg, 91.44 cm) MDM: 09/16 21:20 Patient medically screened. 09/17 05:11 Differential diagnosis: Nonspecific abd pain, gastritis, viral gastroenteritis. Data tw4 reviewed: vital signs, nurses notes. Data reviewed: lab test result(s), CBC, drug level(s), hepatic panel. Data interpreted: Pulse oximetry: Interpretation: normal. Counseling: I had a detailed discussion with the patient and/or guardian regarding: the historical points, exam findings, and any diagnostic results supporting the discharge/admit diagnosis, lab results. Medication response: Zofran markedly relieved the patient's nausea. Response to treatment: and as a result, I will discharge patient. Response to treatment: and as a result, I will. Special discussion: Based on the patient's Hx, exam, and Dx evaluation, there is no indication for emergent surgery or inpatient Tx. It is understood by the patient/guardian that if the Sx's persist or worsen they need to return immediately for re-evaluation. I discussed with the patient/guardian in detail that at this point there is no indication for admission to the hospital. It is understood, however, that if the symptoms persist or worsen the patient needs to return immediately for re-evaluation. 09/16 21:21 Order name: Basic Metabolic Panel [facility] 09/16 21:21 Order name: CBC with Diff [facility] 09/16 21:21 Order name: Creatinine for Radiology [facility] 09/16 21:21 Order name: Hepatic Function [facility] 09/16 21:21 Order name: Lipase [facility] 09/16 21:22 Order name: Urine Microscopic Only [facility] 09/16 22:01 Order name: Urine Dipstick--Ancillary (enter results) [facility] 09/16 22:01 Order name: Urine --Ancillary (enter results) [facility] 09/16 22:03 Order name: CBC with Automated Diff; Complete Time: 00:41 EDMS 09/17 00:42 Interpretation: Normal except: WBC 13.0; EOSINOPHIL % 4.7; NEUT A 8.5; EOSA 0.6. [facility] 09/16 22:09 Order name: Urine --Ancillary; Complete Time: 00:41 EDMS 09/17 00:44 Interpretation: Within normal limits: URINE PREG NEG. [facility] 09/16 22:09 Order name: Urine Dipstick-Ancillary; Complete Time: 00:41 EDMS 02 00:44 Interpretation: Within normal limits. [facility] 09/16 22:36 Order name: Urine Microscopic Only; Complete Time: 00:41 EDMS 09/17 00:44 Interpretation: Within normal limits: UWBC <5. [facility] 09/16 23:03 Order name: Creatinine (Radiology Only); Complete Time: 00:41 EDMS 09/17 00:43 Interpretation: Abnormal: CRE 0.51. [facility] 09/16 23:08 Order name: Basic Metabolic Panel; Complete Time: 00:41 EDMS 02 00:43 Interpretation: Normal except: K 3.4; BUN 6; CRE 0.53. [facility] 09/16 21:21 Order name: IV Saline Lock; Complete Time: 21:51 [facility] 09/16 21:21 Order name: Labs collected and sent; Complete Time: 21:51 [facility] 09/16 21:22 Order name: Urine Dipstick-Ancillary (obtain specimen); Complete Time: 21:59 [facility] 09/16 23:08 Order name: Liver (Hepatic) Function; Complete Time: 00:41 EDMS 02 00:43 Interpretation: Normal except: AST 13; GLOB 3.8. [facility] 09/16 23:08 Order name: Lipase; Complete Time: 00:41 EDMS 09/17 00:44 Interpretation: Within normal limits: LIP 106. 4 Administered Medications: 09/16 22:17 Drug: NS 0.9% 1000 ml Route: IV; Rate: 1 bolus; Site: right forearm; 09/17 01:19 Follow up: Response: No adverse reaction; IV Status: Completed infusion 09/16 22:17 Drug: Zofran 4 mg Route: IVP; Site: right forearm; 09/17 01:18 Follow up: Response: No adverse reaction; Nausea is decreased 09/16 23:39 Drug: Zofran 4 mg Route: IVP; Site: right forearm; 09/17 01:18 Follow up: Response: No adverse reaction; Nausea is decreased 00:42 Drug: Tylenol 650 mg Route: PO; 01:18 Follow up: Response: No adverse reaction; Pain is decreased Disposition: 09/17/19 00:51 Discharged to Home. Impression: Nausea with vomiting, unspecified. - Condition is Stable. - Discharge Instructions: Nausea and Vomiting, Adult, Nausea, Adult, [place] Diet. - Prescriptions for Phenergan 12.5 mg Rectal Suppository - insert 1 suppository by RECTAL route every 6 hours As needed; 12 suppository. promethazine 25 mg Oral Tablet - take 1 tablet by ORAL route every 6 hours As needed; 20 tablet. - Medication Reconciliation Form, Thank You Letter, Antibiotic Education, Prescription Opioid Use form. - Follow up: Private Physician; When: Upon discharge from the Emergency Department; Reason: If symptoms return, Recheck today's complaints, Continuance of care, Re-evaluation by your physician. - Problem is new. - Symptoms have improved. Signatures: Dispatcher [employer] EDMS Vimal Becker, RN RN jb4 Alesha Broderick Terrence, MD MD tw4 Corrections: (The following items were deleted from the chart) 01:19 00:51 09/17/2019 00:51 Discharged to Home. Impression: Nausea with vomiting, wh unspecified. Condition is Stable. Forms are Medication Reconciliation Form, Thank You Letter, Antibiotic Education, Prescription Opioid Use. Follow up: Private Physician; When: Upon discharge from the Emergency Department; Reason: If symptoms return, Recheck today's complaints, Continuance of care, Re-evaluation by your physician. Problem is new. Symptoms have improved. tw4
[2019-09-18 14:46] VITALS: TEMP 98.5
[2019-09-18 14:58] VITALS: BP 126/78; O2SAT 99
== END 2019-09-17 01:19 | disposition home or self-care (01) ==
LOC: ER 20:55
DX: R11.2 Nausea with vomiting, unspecified (principal); I10 Essential (primary) hypertension; Z88.1 Allergy status to other antibiotic agents; Z88.2 Allergy status to sulfonamides; Z88.8 Allergy status to other drugs, medicaments and biological substances; Z91.040 Latex allergy status
CPT/HCPCS: 96361; 85025; 80048; 36415; 81025; 80076; 83690; 96374; 99284; J2405; 81003; 81015

== ENCOUNTER 2019-10-05 11:31 | Inpatient (IN) | payer OTHER ==
--- OUTSIDE RECORDS SUMMARY | 2019-10-05 11:33 | XMS REPORT ---
:1990 [facility] [address] [place]av[place]ria [address] [place] [id number] Care Team Providers Name Role Phone Unavailable Unavailable Unavailable Problems This patient has no known problems. Allergies, Adverse Reactions, Alerts This patient has no known allergies or adverse reactions. Medications This patient has no known medications.
--- OUTSIDE RECORDS SUMMARY | 2019-10-05 11:37 | XMS REPORT | Summary of Care ---
:1990 Author Organization [facility] Address [address] [place] [id number] Care Team Providers Name Role Phone Shirley Smallwood MD Primary Care Provider Ted Waddell Insurance Hmo Encounter Details Date Type Department Care Team Description 08/04/2019 Orders Only [facility] Doctor Unassigned, No [address] [facility] Name [place] [id number] [address] [place] [id number] Allergies Active Allergy Reactions Severity Noted Date Comments Latex Rash, Nausea and/or High 02/25/2011 Vomiting Sulfa (Sulfonamide Antibiotics) Rash 11/16/2016 Sulfamethoxazole (Bulk) Hives, Nausea and/or 02/25/2011 Vomiting, Rash Tegaderm Dressing Hives 01/16/2019 Vancomycin Itching, Rash 12/28/2018 documented as of this encounter (statuses as of 08/19/2019) Medications Medication Sig Dispensed Refills Start Date End Date Status diphenhydrAMINE Take 50 mg by 0 Active (BENADRYL) 25 mg capsule mouth at bedtime as needed for Allergies. oxyCODONE-acetaminophen Take 1 tablet by 0 Active 10-325 mg per tablet mouth every 6 (six) hours as needed for Pain. labetalol 200 mg Take 1 tablet by 60 tablet 6 04/21/2019 Active tabletIndications: mouth 2 (two) Essential hypertension times daily. 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 Spicer at [facility] as a ch Scoliosis 05/29/2018 Rh negative state in antepartum period 01/21/2018 Overview: Rhogam at 28 weeks Rubella non-immune status, antepartum 01/21/2018 Overview: Address pp History of miscarriage 01/18/2018 Spina bifida, unspecified hydrocephalus presence, unspecified spinal 2016 region Wheelchair bound 11/16/2016 documented as of this encounter (statuses as of 08/19/2019) Resolved Problems Problem Noted Date Resolved Date 09/22/2018 07/01/2019 Overview: [place] 04/23/19, Bicornuate uterus, High risk due to patient has spina bifida/wheelchair-bound and HTN Supervision of high risk , antepartum 09/20/2018 07/25/2019 Tibia/fibula fracture, left, closed, initial encounter 05/27/2018 07/25/2019 Abnormal maternal glucose tolerance, antepartum 01/21/2018 05/29/2018 Overview: Passed 3hr UTI in 01/21/2018 05/29/2018 Overview: YOKO in 3/4 weeks Supervision of high-risk 01/18/2018 05/29/2018 Nausea and vomiting during 01/18/2018 05/29/2018 Depo-Provera contraceptive status 11/16/2016 01/18/2018 Hypertension in 11/16/2016 05/29/2018 Urinary incontinence, unspecified type 11/16/2016 05/29/2018 documented as of this encounter (statuses as of 08/19/2019) Immunizations Name Administration Dates Next Due HPV9 02/15/2017 04/18/2017 MMR 02/08/2019 Tdap 01/30/2019 documented as of this encounter Social History Tobacco Use Types Packs/Day Years Used Date Never Smoker Smokeless Tobacco: Never Used Alcohol Use Drinks/Week oz/Week Comments No Sex Assigned at Date Recorded Not on file Job Start Date Occupation Industry Not on file Not on file Not on file Travel History Travel Start Travel End No recent travel history available. documented as of this encounter Last Filed Vital Signs Not on filedocumented in this encounter Plan of Treatment Date Type Specialty Care Team Description 09/09/2019 Office Visit Infectious Disease Km Jay MD [id number] [place] [address] [phone] Health Maintenance Due Date Last Done Comments INFLUENZA VACCINE (#1) 2019 PAP SMEAR 02/16/2020 02/15/2017, 01/16/2017 DTaP,Tdap,and Td Vaccines (2 01/30/2029 01/30/2019 - Td) PNEUMOCOCCAL 0-64 YEARS Aged Out No longer eligible based COMBINED SERIES on patient's age to complete this topic documented as of this encounter Procedures Procedure Name Priority Date/Time Associated Diagnosis Comments INSURANCE CORRESPONDENCE Routine 08/04/2019 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 documented in this encounter Results Not on filedocumented in this encounter Additional Health Concerns Infection Noted Time Resolved Time Contact - ESBL 02/15/2017 10:56 AM CDT documented as of this encounter Insurance Payer Benefit Plan / Subscriber ID Effective Dates Phone Address Type Group AETNA AETNA HMO [id number] 2018- HMO [id number] [facility] [address] xxxxxxxxx 2017-Present Medicaid COMM PLAN - PLUS MANAGED MEDICAID [facility] TOTAL VISION [facility] TOTAL [id number] 2016-Present Vision VISION documented as of this encounter Advance Directives Name Relationship Healthcare Agent Communication Relationship Isabel Estrella Mother Primary healthcare agent [email or web address]
--- OUTSIDE RECORDS SUMMARY | 2019-10-05 11:38 | XMS REPORT | Summary of Care ---
:1990 Author Organization [facility] Address [address] [place] [address] Care Team Providers Name Role Phone Shirley Smallwood MD Primary Care Provider Ted Waddell Insurance Hmo Reason for Visit Reason Comments Notification Encounter Details Date Type Department Care Team Description 08/21/2019 Telephone [facility] Family Medicine Shirley Smallwood MD Notification - [address] [address] [place] [address] Allergies Active Allergy Reactions Severity Noted Date Comments Latex Rash, Nausea and/or High 02/25/2011 Vomiting Sulfa (Sulfonamide Antibiotics) Rash 11/16/2016 Sulfamethoxazole (Bulk) Hives, Nausea and/or 02/25/2011 Vomiting, Rash Tegaderm Dressing Hives 01/16/2019 Vancomycin Itching, Rash 12/28/2018 documented as of this encounter (statuses as of 08/21/2019) Medications Medication Sig Dispensed Refills Start Date End Date Status diphenhydrAMINE Take 50 mg by 0 Active (BENADRYL) 25 mg mouth at capsule bedtime as needed for Allergies. oxyCODONE-acetaminophen Take 1 tablet 0 Active 10-325 mg per tablet by mouth every 6 (six) hours as needed for Pain. labetalol 200 mg Take 1 tablet 60 tablet 6 04/21/2019 Active tabletIndications: by mouth 2 Essential hypertension (two) times daily. dicyclomine 10 mg Take 10 mg by 0 Active capsule mouth 4 (four) times daily. ondansetron 4 mg tablet 0 08/07/2019 Active ciprofloxacin HCl 500 Take 1 tablet 20 tablet 0 08/15/2019 08/25/2019 Active mg tabletIndications: by mouth every Recurrent UTI, Nausea 12 (twelve) and vomiting, hours for 10 intractability of days. 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 Spicer at [facility] as a ch Scoliosis 05/29/2018 Rh negative state in antepartum period 01/21/2018 Overview: Rhogam at 28 weeks Rubella non-immune status, antepartum 01/21/2018 Overview: Address pp History of miscarriage 01/18/2018 Spina bifida, unspecified hydrocephalus presence, unspecified spinal 2016 region Wheelchair bound 11/16/2016 documented as of this encounter (statuses as of 08/21/2019) Resolved Problems Problem Noted Date Resolved Date [...] as of this encounter (statuses as of 08/21/2019) Immunizations Name Administration Dates Next Due HPV9 [...] Disease Km Jay MD [id number] [place], [place] [id number] Health Maintenance Due Date Last Done Comments INFLUENZA VACCINE (#1) 2019 PAP SMEAR 02/16/2020 02/15/2017, 01/16/2017 DTaP,Tdap,and Td Vaccines (2 01/30/2029 01/30/2019 - Td) PNEUMOCOCCAL 0-64 YEARS Aged Out No longer eligible based COMBINED SERIES on patient's age to complete this topic documented as of this encounter Results Not on filedocumented in this encounter Additional Health Concerns Infection Noted Time Resolved Time Contact - ESBL 02/15/2017 10:56 AM CDT documented as of this encounter Insurance Payer Benefit Plan / Subscriber ID Effective Dates Phone Address Type Group [facility] [place] ST[facility] xxxxxxxxx 2017-Present Medicaid COMM PLAN - PLUS MANAGED MEDICAID [facility] TOTAL VISION [facility] TOTAL [id number] 2016-Present Vision VISION documented as of this encounter Advance Directives Name Relationship Healthcare Agent Communication Relationship Isabel Murders Mother Primary healthcare agent [email or web address]
--- OUTSIDE RECORDS SUMMARY | 2019-10-05 11:38 | XMS REPORT | Summary of Care ---
:1990 Author Organization [facility] Address [address] [place] [address] Care Team Providers Name Role Phone Shirley Smallwood MD Primary Care Provider Ted Waddell Insurance Hmo Reason for Visit Reason Comments Medical Records Encounter Details Date Type Department Care Team Description 08/20/2019 Telephone [facility] Family Shirley Smallwood MD Medical Records Medicine - [address] [address] [place] [address] Allergies Active Allergy Reactions Severity Noted Date Comments Latex Rash, Nausea and/or High 02/25/2011 Vomiting Sulfa (Sulfonamide Antibiotics) Rash 11/16/2016 Sulfamethoxazole (Bulk) Hives, Nausea and/or 02/25/2011 Vomiting, Rash Tegaderm Dressing Hives 01/16/2019 Vancomycin Itching, Rash 12/28/2018 documented as of this encounter (statuses as of 08/20/2019) Medications Medication Sig Dispensed Refills Start Date [...] as of this encounter (statuses as of 08/20/2019) Active Problems Problem Noted Date Pressure injury of left buttock, stage 4 07/01/[address] 03/25/2019 Bicornuate uterus 09/23/2018 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 as a ch Scoliosis 05/29/2018 Rh negative state in antepartum period 01/21/2018 Overview: Rhogam at 28 weeks Rubella non-immune status, antepartum 01/21/2018 Overview: Address pp History of miscarriage 01/18/2018 Spina bifida, unspecified hydrocephalus presence, unspecified spinal 2016 region Wheelchair bound 11/16/2016 documented as of this encounter (statuses as of 08/20/2019) Resolved Problems Problem Noted Date Resolved Date [...] as of this encounter (statuses as of 08/20/2019) Immunizations Name Administration Dates Next Due HPV9 [...] Disease Km Jay MD [id number] [place], [place] [id number] Health Maintenance Due Date Last Done Comments [...] ID Effective Dates Phone Address Type Group [facility] [place] [facility] xxxxxxxxx 2017-Present Medicaid COMM PLAN - PLUS MANAGED MEDICAID [facility] TOTAL VISION [facility] TOTAL [id number] 2016-Present Vision VISION documented as of this encounter Advance Directives Name Relationship Healthcare Agent Communication Relationship Isabel Estrella Mother Primary healthcare agent [email or web address]
--- OUTSIDE RECORDS SUMMARY | 2019-10-05 11:38 | XMS REPORT | Summary of Care ---
:1990 Author Organization [facility] Address [address] [place] [address] Care Team Providers Name Role Phone Shirley Smallwood MD Primary Care Provider Ted Waddell Insurance Hmo Encounter Details Date Type Department Care Team Description 08/29/2019 Orders Only [facility] Doctor Unassigned, No 301 [facility] Name [place] [id number] [address] [place] [address] Allergies Active Allergy Reactions Severity Noted Date Comments Latex Rash, Nausea and/or High 02/25/2011 Vomiting Sulfa (Sulfonamide Antibiotics) Rash 11/16/2016 Sulfamethoxazole (Bulk) Hives, Nausea and/or 02/25/2011 Vomiting, Rash Tegaderm Dressing Hives 01/16/2019 Vancomycin Itching, Rash 12/28/2018 documented as of this encounter (statuses as of 08/29/2019) Medications Medication Sig Dispensed Refills Start Date [...] mouth 2 (two) Essential hypertension times daily. dicyclomine 10 mg Take 10 mg by 0 Active capsule mouth 4 (four) times daily. 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 Spicer at [facility] as a ch Scoliosis 05/29/2018 Rh negative state in antepartum period 01/21/2018 Overview: Rhogam at 28 weeks Rubella non-immune status, antepartum 01/21/2018 Overview: Address pp History of miscarriage 01/18/2018 Spina bifida, unspecified hydrocephalus presence, unspecified spinal 2016 region Wheelchair bound 11/16/2016 documented as of this encounter (statuses as of 08/29/2019) Resolved Problems Problem Noted Date Resolved Date [...] as of this encounter (statuses as of 08/29/2019) Immunizations Name Administration Dates Next Due HPV9 [...] Disease Km Jay MD [id number] [place], [place] [id number] Health Maintenance Due Date Last Done Comments INFLUENZA VACCINE (#1) 2019 PAP SMEAR 02/16/2020 02/15/2017, 01/16/2017 DTaP,Tdap,and Td Vaccines (2 01/30/2029 01/30/2019 - Td) PNEUMOCOCCAL 0-64 YEARS Aged Out No longer eligible based COMBINED SERIES on patient's age to complete this topic documented as of this encounter Procedures Procedure Name Priority Date/Time Associated Diagnosis Comments EXTERNAL PROVIDER Routine 08/29/2019 12:01 AM SENIOR STAFF PSYCHOLOGIST RECORDS documented in this encounter Results Not on filedocumented in this encounter Additional Health Concerns Infection Noted Time Resolved Time Contact - ESBL 02/15/2017 10:56 AM CDT documented as of this encounter Insurance Payer Benefit Plan / Subscriber ID Effective Dates Phone Address Type Group [facility] [place] [facility] xxxxxxxxx 2017-Present Medicaid COMM PLAN - PLUS MANAGED MEDICAID [facility] TOTAL VISION [facility] TOTAL [id number] 2016-Present Vision VISION documented as of this encounter Advance Directives Name Relationship Healthcare Agent Communication Relationship Isabel Estrella Mother Primary healthcare agent [email or web address]
--- OUTSIDE RECORDS SUMMARY | 2019-10-05 11:38 | XMS REPORT | Summary of Care ---
:1990 Author Organization [facility] Address [address] [place] [address] Care Team Providers Name Role Phone Shirley Smallwood MD Primary Care Provider Ted Waddell Insurance Hmo Reason for Visit Reason Comments Orders Encounter Details Date Type Department Care Team Description 08/22/2019 Telephone [facility] Family Medicine Shirley Smallwood MD Orders - [address] [address] [place] [address] Allergies Active Allergy Reactions Severity Noted Date Comments Latex Rash, Nausea and/or High 02/25/2011 Vomiting Sulfa (Sulfonamide Antibiotics) Rash 11/16/2016 Sulfamethoxazole (Bulk) Hives, Nausea and/or 02/25/2011 Vomiting, Rash Tegaderm Dressing Hives 01/16/2019 Vancomycin Itching, Rash 12/28/2018 documented as of this encounter (statuses as of 08/22/2019) Medications Medication Sig Dispensed Refills Start Date [...] as of this encounter (statuses as of 08/22/2019) Active Problems Problem Noted Date Pressure injury of left buttock, stage 4 07/01/[address] 03/25/2019 Bicornuate uterus 09/23/2018 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 Spicer at [facility] as a ch Scoliosis 05/29/2018 Rh negative state in antepartum period 01/21/2018 Overview: Rhogam at 28 weeks Rubella non-immune status, antepartum 01/21/2018 Overview: Address pp History of miscarriage 01/18/2018 Spina bifida, unspecified hydrocephalus presence, unspecified spinal 2016 region Wheelchair bound 11/16/2016 documented as of this encounter (statuses as of 08/22/2019) Resolved Problems Problem Noted Date Resolved Date [...] as of this encounter (statuses as of 08/22/2019) Immunizations Name Administration Dates Next Due HPV9 [...] Disease Km Jay MD [id number] [place], [place] [phone] Health Maintenance Due Date Last Done Comments [...] ID Effective Dates Phone Address Type Group [facility] [place] [facility] xxxxxxxxx 2017-Present Medicaid COMM PLAN - PLUS MANAGED MEDICAID [facility] TOTAL VISION [facility] TOTAL [id number] 2016-Present Vision VISION documented as of this encounter Advance Directives Name Relationship Healthcare Agent Communication Relationship Isabel Murders Mother Primary healthcare agent [email or web address]
--- OUTSIDE RECORDS SUMMARY | 2019-10-05 11:39 | XMS REPORT | Summary of Care ---
:1990 Author Organization [facility] Address [address] [place] [address] Care Team Providers Name Role Phone Shirley Smallwood MD Primary Care Provider Ted Waddell Insurance Hmo Reason for Visit Reason Comments Assessment Encounter Details Date Type Department Care Team Description 09/11/2019 Telephone [facility] Family Medicine Shirley Smallwood MD Assessment - [address] [address] [place] [address] Allergies Active Allergy Reactions Severity Noted Date Comments Latex Rash, Nausea and/or High 02/25/2011 Vomiting Sulfa (Sulfonamide Antibiotics) Rash 11/16/2016 Sulfamethoxazole (Bulk) Hives, Nausea and/or 02/25/2011 Vomiting, Rash Tegaderm Dressing Hives 01/16/2019 Vancomycin Itching, Rash 12/28/2018 documented as of this encounter (statuses as of 09/11/2019) Medications Medication Sig Dispensed Refills Start Date [...] as of this encounter (statuses as of 09/11/2019) Active Problems Problem Noted Date Pressure injury of left buttock, stage 4 07/01/[address] 03/25/2019 Bicornuate uterus 09/23/2018 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 Spicer at [facility] as a ch Scoliosis 05/29/2018 Rh negative state in antepartum period 01/21/2018 Overview: Rhogam at 28 weeks Rubella non-immune status, antepartum 01/21/2018 Overview: Address pp History of miscarriage 01/18/2018 Spina bifida, unspecified hydrocephalus presence, unspecified spinal 2016 region Wheelchair bound 11/16/2016 documented as of this encounter (statuses as of 09/11/2019) Resolved Problems Problem Noted Date Resolved Date [...] as of this encounter (statuses as of 09/11/2019) Immunizations Name Administration Dates Next Due HPV9 [...] filedocumented in this encounter Plan of Treatment Health Maintenance Due Date Last Done Comments [...] ID Effective Dates Phone Address Type Group [facility] [place] [facility] xxxxxxxxx 2017-Present Medicaid COMM PLAN - PLUS MANAGED MEDICAID [facility] TOTAL VISION [facility] TOTAL [id number] 2016-Present Vision VISION AETNA AETNA HMO [id number] 2018-Present HMO documented as of this encounter Advance Directives Name Relationship Healthcare Agent Communication Relationship Isabel Estrella Mother Primary healthcare agent [email or web address]
--- OUTSIDE RECORDS SUMMARY | 2019-10-05 11:39 | XMS REPORT | Summary of Care ---
:1990 Author Organization [facility] Address [address] [place] [address] Care Team Providers Name Role Phone Shirley Smallwood MD Primary Care Provider Ted Waddell Insurance Hmo Reason for Visit Reason Comments Notification Encounter Details Date Type Department Care Team Description 09/02/2019 Telephone [facility] [place] [facility] Family Medicine Shirley Smallwood MD Notification - [address] [address] [place] [address] Allergies Active Allergy Reactions Severity Noted Date Comments Latex Rash, Nausea and/or High 02/25/2011 Vomiting Sulfa (Sulfonamide Antibiotics) Rash 11/16/2016 Sulfamethoxazole (Bulk) Hives, Nausea and/or 02/25/2011 Vomiting, Rash Tegaderm Dressing Hives 01/16/2019 Vancomycin Itching, Rash 12/28/2018 documented as of this encounter (statuses as of 09/02/2019) Medications Medication Sig Dispensed Refills Start Date [...] as of this encounter (statuses as of 09/02/2019) Active Problems Problem Noted Date Pressure injury of left buttock, stage 4 07/01/[address] 03/25/2019 Bicornuate uterus 09/23/2018 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 Spicer at [facility] as a ch Scoliosis 05/29/2018 Rh negative state in antepartum period 01/21/2018 Overview: Rhogam at 28 weeks Rubella non-immune status, antepartum 01/21/2018 Overview: Address pp History of miscarriage 01/18/2018 Spina bifida, unspecified hydrocephalus presence, unspecified spinal 2016 region Wheelchair bound 11/16/2016 documented as of this encounter (statuses as of 09/02/2019) Resolved Problems Problem Noted Date Resolved Date [...] as of this encounter (statuses as of 09/02/2019) Immunizations Name Administration Dates Next Due HPV9 [...] Disease Km Jay MD [id number] [place], [place] [id number] Health Maintenance Due Date Last Done Comments [...] ID Effective Dates Phone Address Type Group [facility] [place] xxxxxxxxx 2017-Present Medicaid COMM PLAN - PLUS MANAGED MEDICAID [facility] TOTAL VISION [facility] TOTAL [id number] 2016-Present Vision VISION AETNA AETNA PPO I [id number] 2015-Presen PPO t documented as of this encounter Advance Directives Name Relationship Healthcare Agent Communication Relationship Isabel Estrella Mother Primary healthcare agent [email or web address]
--- OUTSIDE RECORDS SUMMARY | 2019-10-05 11:39 | XMS REPORT | Summary of Care ---
:1990 Author Organization [facility] Address [address] [place] [address] Care Team Providers Name Role Phone Shirley Smallwood MD Primary Care Provider Ted Waddell Insurance Hmo Encounter Details Date Type Department Care Team Description 06/29/2019 Orders Only [facility] Doctor Unassigned, No 301 [facility] Name [place] [id number] [address] [place] [address] Allergies Active Allergy Reactions Severity Noted Date [...] unspecified type 05/29/2018 Poor nutrition 05/29/2018 S/P BEE KEEPER shunt 05/29/2018 Self-catheterizes urinary bladder 05/29/2018 Overview: spina bifida s/p augmentation cystoplasty and catheterizable channel by Dr. Spicer at [facility] as a ch Scoliosis 05/29/2018 Rh [...] Procedure Name Priority Date/Time Associated Diagnosis Comments HOME HEALTH 485 Routine 06/29/2019 12:01 AM INDIGO MIXER documented in this encounter Results Not on filedocumented in this encounter Additional Health Concerns Infection Noted Time Resolved Time Contact - ESBL 02/15/2017 10:56 AM CDT documented as of this encounter Insurance Payer Benefit Plan / Subscriber ID Effective Dates Phone Address Type Group AETNA AETNA HMO [id number] 2018- HMO [id number] [facility] [place] xxxxxxxxx 2017-Present Medicaid COMM PLAN - PLUS MANAGED MEDICAID [facility] TOTAL VISION [facility] TOTAL [id number] 2016-Present Vision VISION AETNA AETNA PPO I [id number] 2015-19 PPO 20 AETNA AETNA HMO [id number] 2018-Present HMO documented as of this encounter Advance Directives Name Relationship Healthcare Agent Communication Relationship Isabel Estrella Mother Primary healthcare agent [email or web address]
--- OUTSIDE RECORDS SUMMARY | 2019-10-05 11:39 | XMS REPORT | Summary of Care ---
:[address] [facility] Address [address] [place] [address] Care Team Providers Name Role Phone Shirley Smallwood MD Primary Care Provider Ted Waddell Insurance Hmo Encounter Details Date Type Department Care Team Description 08/13/[address] [facility] Doctor Unassigned, No 301 [facility] Name [place] [id number] [address] [place] [address] Allergies Active Allergy Reactions Severity Noted Date Comments Latex Rash, Nausea and/or High 02/25/2011 Vomiting Sulfa (Sulfonamide Antibiotics) Rash 11/16/2016 Sulfamethoxazole (Bulk) Hives, Nausea and/or 02/25/2011 Vomiting, Rash Tegaderm Dressing Hives 01/16/2019 Vancomycin Itching, Rash 12/28/2018 documented as of this encounter (statuses as of 09/03/2019) Medications Medication Sig Dispensed Refills Start Date [...] as of this encounter (statuses as of 09/03/2019) Active Problems Problem Noted Date Pressure injury of left buttock, stage 4 07/01/[address] 03/25/2019 Bicornuate uterus 09/23/2018 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 Pituitary tumor 07/12/2018 Elevated alkaline phosphatase level 06/07/2018 Hyperprolactinemia 06/07/2018 Persistent headaches 06/07/2018 Iron deficiency anemia, unspecified iron deficiency anemia type 06/07/2018 Cholelithiasis 06/03/2018 Recurrent UTI 05/29/2018 Irregular menses 05/29/2018 Anemia, unspecified type 05/29/2018 Poor nutrition 05/29/2018 S/P SYSTEMS DESIGN ENGINEER shunt 05/29/2018 Self-catheterizes urinary bladder 05/29/2018 Overview: [...] as of this encounter (statuses as of 09/03/2019) Resolved Problems Problem Noted Date Resolved Date [...] as of this encounter (statuses as of 09/03/2019) Immunizations Name Administration Dates Next Due HPV9 [...] Disease Km Jay MD [id number] [place] [address] [phone] Health Maintenance Due Date Last Done Comments INFLUENZA VACCINE (#1) 2019 PAP SMEAR 02/16/2020 02/15/2017, 01/16/2017 DTaP,Tdap,and Td Vaccines (2 01/30/2029 01/30/2019 - Td) PNEUMOCOCCAL 0-64 YEARS Aged Out No longer eligible based COMBINED SERIES on patient's age to complete this topic documented as of this encounter Procedures Procedure Name Priority Date/Time Associated Diagnosis Comments AUTHORIZATION FOR RELEASE Routine 08/13/2019 12:01 AM OF PHI PARTS CLERK PLANT MAINTENANCE documented in this encounter Results Not on filedocumented in this encounter Additional Health Concerns Infection Noted Time Resolved Time Contact - ESBL 02/15/2017 10:56 AM CDT documented as of this encounter Insurance Payer Benefit Plan / Subscriber ID Effective Dates Phone Address Type Group [facility] [place] [facility] xxxxxxxxx 2017-Present Medicaid COMM PLAN - PLUS MANAGED MEDICAID [facility] TOTAL VISION [facility] TOTAL [id number] 2016-Present Vision VISION AETNA AETNA PPO I [id number] 2015-Presen PPO t documented as of this encounter Advance Directives Name Relationship Healthcare Agent Communication Relationship Isabel Estrella Mother Primary healthcare agent [email or web address]
--- OUTSIDE RECORDS SUMMARY | 2019-10-05 11:40 | XMS REPORT | Summary of Care ---
:[address] [facility] [place] [address] Care Team Providers Name Role Phone Karely Murphy MD Primary Care Provider Reason for Referral Consult, Test & Treat (Routine) Status Reason Specialty Diagnoses / Referred By Contact Referred To Contact Procedures Pending Urology Diagnoses Neurogenic bladder Roberto Vigil [place] Urology Procedures CYSTOSCOPY [address] [facility] [address] [facility] 10th Floor, [address], [place] [phone] Radiology Services (Routine) Status Reason Specialty Diagnoses / Referred By Contact Referred To Procedures Contact Pending Radiology Diagnoses Neurogenic bladder Roberto Vigil Bc Us Imaging Procedures US RENAL BILATERAL [address] [facility] [address] [facility] [address], [place] [phone] Phone: Consult, Test & Treat (Routine) Status Reason Specialty Diagnoses / Procedures Referred By Contact Referred To Contact Pending Urology Diagnoses Neurogenic bladder Urinary tract infection without hematuria, site unspecified Urinary frequency Urinary incontinence, unspecified type Roberto Vigil Urology Procedures VIDEO URODYNAMICS DE COMPLEX CYSTOMETROGRAM VOIDING PRESSURE STUDIES DE ELECTRO-UROFLOWMETRY, FIRST DE ANAL/URINARY MUSCLE STUDY DE VOIDING PRESS STUDY INTRA-ABDOMINAL VOID DE X-RAY URETHROCYSTOGRAM+VOIDING MD Te [address] [place] [address] DE INJECTION FOR BLADDER X-RAY CHG URINALYSIS NONAUTO W/O SCOPE [address] [facility] 10th Floor, [address], [place] [address] [place] [address] Reason for Visit Reason Comments Medical Concern Encounter Details Date Type Department Care Team Description [facility]/29[facility] Urology [address] [place] [address] [place] [address] 10th [address], [address], [place] [address] [place], [place] [id number] Allergies Active Allergy Reactions Severity Noted Date Comments Sulfamethoxazole W/Trimethoprim Hives, Nausea And 02/25/2011 Vomiting, Rash Latex Nausea And Vomiting, High 02/25/2011 Rash Sulfa Antibiotics Rash 11/16/2016 documented as of this encounter (statuses as of 08/29/2019) Medications Medication Sig Dispensed Refills Start Date End Date Status Cholecalciferol Take 1 Tab by 0 10/15/2018 Active (VITAMIN D-3) 1000 mouth daily. units CAPS labetalol (NORMODYNE) Take 200 mg by 0 09/20/2018 Active 200 MG tablet mouth every 12 hours. omeprazole (PRILOSEC) Take 20 mg by 0 10/14/2018 Active 20 MG capsule mouth daily. oxycodone-acetaminophen Take 2 Tabs by 0 10/09/2018 Active (PERCOCET) 10-325 MG mouth daily. per tablet diphenhydrAMINE Take 50 mg by 0 Active (BENADRYL) 25 MG mouth daily. capsule aspirin EC 81 MG tablet Take 81 mg by 0 10/14/2018 Active mouth daily. nystatin-triamcinolone Apply to 1 Tube 1 12/12/2018 Active (MYCOLOG) bilateral clean ointmentIndications: dry groin BID x 7 Neurogenic bladder, days Yeast infection dicyclomine (BENTYL) 10 Take 10 mg by 0 Active MG capsule mouth. atenolol (TENORMIN) 50 DAILY 0 07/13/2017 Active MG tablet ondansetron (ZOFRAN) 4 0 08/07/2019 Active MG tablet promethazine 0 08/07/2019 Active (PHENERGAN) 25 MG tablet documented as of this encounter (statuses as of 08/29/2019) Active Problems Problem Noted Date Other idiopathic scoliosis, thoracolumbar region 12/01/2018 Last Assessment & Plan: Resulting in severe restrictive lung disease Sleep-disordered breathing 12/01/2018 Last Assessment & Plan: High risk patient for sleep disordered breathing / Hypoventilation Also History of apnea and anatomy of the upper airway suggestive of sleep disordered breathing. Discussed with patient the pathophysiology of sleep apnea, diagnosis and treatment options Will go ahead and order a sleep study with etCo2 and further managment as indicated Restrictive lung disease due to kyphoscoliosis 12/01/2018 Last Assessment & Plan: PFt poor quality, patient was very anxious during testing , sig restriction Alveolar hypoventilation 12/01/2018 Last Assessment & Plan: High risk patient Will check on sleep study 17 weeks gestation of 12/01/2018 Last Assessment & Plan: High risk patient, will follow closely documented as of this encounter (statuses as of 08/29/2019) Social History Tobacco Use Types Packs/Day Years Used Date Never Smoker Smokeless Tobacco: Never Used Alcohol Use Drinks/Week oz/Week Comments Never Alcohol Habits Answer Date Recorded How often do you have a drink containing alcohol? Never 11/25/2018 How many drinks containing alcohol do you have on a typical Not asked day when you are drinking? How often do you have six or more drinks on one occasion? Not asked Sex Assigned at Date Recorded Not on file Job Start Date Occupation Industry Not on file Not on file Not on file Travel History Travel Start Travel End No recent travel history available. 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 HENT: Negative. Eyes: Negative. Respiratory: Negative. Cardiovascular: Negative. Gastrointestinal: Positive for nausea and vomiting. Endocrine: Negative. Genitourinary: Negative. Musculoskeletal: Negative. Skin: Positive for wound. Allergic/Immunologic: Negative. Neurological: Positive for headaches. Hematological: Bruises/bleeds easily. Psychiatric/Behavioral: Positive for sleep disturbance. Roberto Zepeda MD - 08/29/2019 1:20 PM CST Referring Physician Karely Nguyen MD [address] [place] [address] Patient Name: Shari Estrella :1990 [facility] ID#:[id number] Ms. Estrella is a 29 y.o. year old female who present to me for evaluation. Pt with h/o spina bifidas/p augmentation cystoplasty and catheterizable channel by Dr. Spicer at [facility] as a child. Pt now 21 wks . Pt was recently hospitalized with UTI at [facility]. Pt has had trouble draining urine from bladder using 10Fr catheter. It passes completely but urine still left in bladder. Pt now with indwelling urethral catheter that is changed qwk. Pt also on macrobid prophylaxis. Pt usually caths q4hr but had leakage between catheterizations. Pt also leaking around messina catheter. Was on oxybutynin in the past. Pt with h/o bladder stones in past. Renal u/s 11/22 showed mild right pelviectasis. Plan is for . Pt now here for followup. Had child vaginally without complication but has had recurrent UTI's overpast several months. Currently on Vanc/Cefepime for UTI and wound infection. CIC 12x/day with 10Frcatheter due to leakage per urethra. Past Medical History: Diagnosis Date Esophageal reflux S/P DIGITAL TRAFFIC COORDINATOR shunt Spina bifida (HCCode) Past Surgical History: Procedure Laterality Date HX BACK SURGERY HX COLON SURGERY HX FOOT SURGERY Medications Outpatient Medications Prior to Visit Medication Sig Dispense Refill aspirin EC Take 81 mg by mouth daily. atenolol DAILY Vitamin D-3 Take 1 Tab by mouth daily. dicyclomine Take 10 mg by mouth. diphenhydrAMINE Take 50 mg by mouth daily. labetalol Take 200 mg by mouth every 12 hours. nystatin-triamcinolone Apply to bilateral clean dry groin BID x 7 days 1 Tube 1 omeprazole Take 20 mg by mouth daily. ondansetron oxycodone-acetaminophen Take 2 Tabs by mouth daily. promethazine No facility-administered medications prior to visit. Current Outpatient Medications: aspirin EC 81 MG tablet, Take 81 mg by mouth daily., Disp: , Rfl: atenolol (TENORMIN) 50 MG tablet, DAILY, Disp: , Rfl: Cholecalciferol (VITAMIN D-3) 1000 units CAPS, Take 1 Tab by mouth daily., Disp: , Rfl: dicyclomine (BENTYL) 10 MG capsule, Take 10 mg by mouth., Disp: , Rfl: diphenhydrAMINE (BENADRYL) 25 MG capsule, Take 50 mg by mouth daily., Disp : , Rfl: labetalol (NORMODYNE) 200 MG tablet, Take 200 mg by mouth every 12 hours., Disp: , Rfl: nystatin-triamcinolone (MYCOLOG) ointment, Apply to bilateral clean dry groin BID x 7 days, Disp: 1 Tube, Rfl: 1 omeprazole (PRILOSEC) 20 MG capsule, Take 20 mg by mouth daily., Disp: , Rfl: ondansetron (ZOFRAN) 4 MG tablet, , Disp: , Rfl: oxycodone-acetaminophen (PERCOCET) 10-325 MG per tablet, Take 2 Tabs by mouth daily., Disp: , Rfl: promethazine (PHENERGAN) 25 MG tablet, , Disp: , Rfl: Social History Socioeconomic History Marital status: Single Spouse name: Not on file Number of children: Not on file Years of education: Not on file Highest education level: Not on file Occupational History Not on file Social Needs Financial resource strain: Not on file Food insecurity: Worry: Not on file Inability: Not on file Transportation needs: Medical: Not on file Non-medical: Not on file Tobacco Use Smoking status: Never Smoker Smokeless tobacco: Never Used Substance and Sexual Activity Alcohol use: Never Frequency: Never Drug use: Never Sexual activity: Not on file Lifestyle Physical activity: Days per week: Not on file Minutes per session: Not on file Stress: Not on file Relationships Social connections: Talks on phone: Not on file Gets together: Not on file Attends anabaptist service: Not on file Active member of club or organization: Not on file Attends meetings of clubs or organizations: Not on file Relationship status: Not on file Intimate partner violence: Fear of current or ex partner: Not on file Emotionally abused: Not on file Physically abused: Not on file Forced sexual activity: Not on file Other Topics Concerns: Not on file Social History Narrative Not on file family history includes Diabetes in her father and mother; Hemochromatosis in her father; High BloodPressure in her mother; Hypertension in her father; Sle in her mother. Allergies Allergen Reactions Latex Nausea And Vomiting and Rash Bactrim [Sulfamethoxazole W/Trimethoprim] Hives, Nausea And Vomiting and Rash Sulfa Antibiotics Rash Review of Systems: Constitutional: Positive for appetite change, fatigue and fever. HENT: Negative. Eyes: Negative. Respiratory: Negative. Cardiovascular: Negative. Gastrointestinal: Positive for nausea and vomiting. Endocrine: Negative. Genitourinary: Negative. Musculoskeletal: Negative. Skin: Positive for wound. Allergic/Immunologic: Negative. Neurological: Positive for headaches. Hematological: Bruises/bleeds easily. Psychiatric/Behavioral: Positive for sleep disturbance. Physical Exam: Vitals: see in note above GENERAL: Well developed, well nourished, in no acute distress HEAD: Normocephalic and atraumatic CHEST Regular respiratory rate CV Regular rate and rhythm ABDOMEN: Soft and non-tender without masses, BACK: No CVAT EXTREMITIES: No clubbing, cyanosis, edema, or deformity SKIN: Intact without lesions or rashes NEURO: GLYNN well. Patient alert and oriented x3. PSYCH: Alert and cooperative; normal mood and affect; normal attention span and concentration Most Recent Labs: No results found for this or any previous visit (from the past 4032 hour(s)). Most Recent Imaging: No images are attached to the encounter. Assessment: 1. Spina bifida s/p augmentation cystoplasty with catheterizable channel Plan: 1. Cath urine for culture 2. Continue Vanc/Cefepime 3. RTC for renal u/s, VUDS and cysto 4. CIC 12x/day with 10Fr catheter documented in this encounter Plan of Treatment Date Type Specialty Care Team Description 09/30/2019 Office Visit Urology Roberto Vigil MD [address] [facility] [address]LO[address], [place] [address] Name Type Priority Associated Diagnoses Order Schedule VIDEO URODYNAMICS Procedure Routine Neurogenic bladder 1 Occurrences Urinary tract starting 08/29/2019 infection without until 08/29/2020 hematuria, site unspecified Urinary frequency Urinary incontinence, unspecified type US RENAL BILATERAL Imaging Routine Neurogenic bladder 1 Occurrences starting 08/29/2019 until 08/29/2020 CYSTOSCOPY Procedure Routine Neurogenic bladder 1 Occurrences starting 08/29/2019 until 08/29/2020 URINALYSIS AUTO Lab Routine Urinary tract Ordered: 08/29/2019 W/SCOPE infection without hematuria, site unspecified CULTURE, Microbiology Routine Urinary tract 2 Occurrences URINE/SENSITIVITY ON infection without starting 08/29/2019 ALL hematuria, site until 08/28/2020 unspecified Health Maintenance Due Date Last Done Comments TETANUS SHOT (ADULT) 2007 BMI FOLLOW UP PLAN 2010 HIV SCREENING 2010 CERVICAL CANCER SCREENING 3 YEAR FOLLOW UP 2013 FLU VACCINE > 6 MONTHS 03/06/2019 documented as of this encounter Results Not on filedocumented in this encounter Visit Diagnoses Diagnosis Neurogenic bladder - Primary Neurogenic bladder, NOS Urinary tract infection without hematuria, site unspecified Urinary frequency Urinary incontinence, unspecified type documented in this encounter Insurance Payer Benefit Plan / Subscriber ID Effective Phone Address Type Group Dates AETNA OPEN ACCESS xxxxxxxxx 2015-Pres [address] HMO/POS/EPO/PP ent [id number] O - AETNA [place] [phone] [facility] xxxxxxxxx 2018-Prese [address] [address] Medicaid HEALTHCARE STAR PLUS [place] [address] documented as of this encounter
--- OUTSIDE RECORDS SUMMARY | 2019-10-05 11:40 | XMS REPORT | Summary of Care ---
:1990 Author Organization [facility] Address [address] [place] [address] Care Team Providers Name Role Phone Shirley Smallwood MD Primary Care Provider Ted Waddell Insurance Hmo Reason for Visit Reason Comments Assessment Encounter Details Date Type Department Care Team Description 09/22/[address] [facility] Family Medicine Shirley Smallwood MD Assessment - [address] [phone] [place] [address] Allergies Active Allergy Reactions Severity Noted Date Comments Latex Rash, Nausea and/or High 02/25/2011 Vomiting Sulfa (Sulfonamide Antibiotics) Rash 11/16/2016 Sulfamethoxazole (Bulk) Hives, Nausea and/or 02/25/2011 Vomiting, Rash Tegaderm Dressing Hives 01/16/2019 Vancomycin Itching, Rash 12/28/2018 documented as of this encounter (statuses as of 09/22/2019) Medications Medication Sig Dispensed Refills Start Date [...] as of this encounter (statuses as of 09/22/2019) Active Problems Problem Noted Date Pressure injury of left buttock, stage 4 07/01/[address] 03/25/2019 Bicornuate uterus 09/23/2018 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 Pituitary tumor 07/12/2018 Elevated alkaline phosphatase level 06/07/2018 Hyperprolactinemia 06/07/2018 Persistent headaches 06/07/2018 Iron deficiency anemia, unspecified iron deficiency anemia type 06/07/2018 Cholelithiasis 06/03/2018 Recurrent UTI 05/29/2018 Irregular menses 05/29/2018 Anemia, unspecified type 05/29/2018 Poor nutrition 05/29/2018 S/P TRACK OILER shunt 05/29/2018 Self-catheterizes urinary bladder 05/29/2018 Overview: [...] as of this encounter (statuses as of 09/22/2019) Resolved Problems Problem Noted Date Resolved Date [...] as of this encounter (statuses as of 09/22/2019) Immunizations Name Administration Dates Next Due HPV9 [...] ID Effective Dates Phone Address Type Group [facility] [place] [facility] xxxxxxxxx 2017-Present Medicaid COMM PLAN - PLUS MANAGED MEDICAID [facility] TOTAL VISION [facility] TOTAL [id number] 2016-Present Vision VISION AETNA AETNA HMO [id number] 2018-Present HMO documented as of this encounter Advance Directives Name Relationship Healthcare Agent Communication Relationship Isabel Estrella Mother Primary healthcare agent [email or web address]
--- OUTSIDE RECORDS SUMMARY | 2019-10-05 11:40 | XMS REPORT | Summary of Care ---
:1990 Author Organization [facility] Address [address] [place] [address] Care Team Providers Name Role Phone Shirley Smallwood MD Primary Care Provider Ted Waddell Insurance Hmo Encounter Details Date Type Department Care Team Description 09/22/2019 Orders Only [facility] Doctor Unassigned, No 301 [facility] Name [place] [id number] [address] [place] [address] Allergies Active Allergy Reactions Severity Noted Date Comments Latex Rash, Nausea and/or High 02/25/2011 Vomiting Sulfa (Sulfonamide Antibiotics) Rash 11/16/2016 Sulfamethoxazole (Bulk) Hives, Nausea and/or 02/25/2011 Vomiting, Rash Tegaderm Dressing Hives 01/16/2019 Vancomycin Itching, Rash 12/28/2018 documented as of this encounter (statuses as of 09/23/2019) Medications Medication Sig Dispensed Refills Start Date [...] as of this encounter (statuses as of 09/23/2019) Active Problems Problem Noted Date Pressure injury of left buttock, stage 4 07/01/[address] 03/25/2019 Bicornuate uterus 09/23/2018 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 Spicer at [facility] as a ch Scoliosis 05/29/2018 Rh negative state in antepartum period 01/21/2018 Overview: Rhogam at 28 weeks Rubella non-immune status, antepartum 01/21/2018 Overview: Address pp History of miscarriage 01/18/2018 Spina bifida, unspecified hydrocephalus presence, unspecified spinal 2016 region Wheelchair bound 11/16/2016 documented as of this encounter (statuses as of 09/23/2019) Resolved Problems Problem Noted Date Resolved Date [...] as of this encounter (statuses as of 09/23/2019) Immunizations Name Administration Dates Next Due HPV9 [...] Priority Date/Time Associated Diagnosis Comments HOME HEALTH - OTHER Routine 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 documented in this encounter Results Not on filedocumented in this encounter Additional Health Concerns Infection Noted Time Resolved Time Contact - ESBL 02/15/2017 10:56 AM CDT documented as of this encounter Insurance Payer Benefit Plan / Subscriber ID Effective Dates Phone Address Type Group [facility] [place] [facility] xxxxxxxxx 2017-Present Medicaid COMM PLAN - PLUS MANAGED MEDICAID [facility] TOTAL VISION [facility] TOTAL [id number] 2016-Present Vision VISION AETNA AETNA HMO [id number] 2018-Present HMO documented as of this encounter Advance Directives Name Relationship Healthcare Agent Communication Relationship Isabel Estrella Mother Primary healthcare agent [email or web address]
--- OUTSIDE RECORDS SUMMARY | 2019-10-05 11:40 | XMS REPORT | Summary of Care ---
:1990 Author Organization [facility] - [facility] Address [address] [place] [id number] Care Team Providers Name Role Phone Shirley Smallwood MD Primary Care Provider Ted Waddell Insurance Hmo Encounter Details Date Type Department Care Team Description 09/11/2019 Orders Only [facility] Doctor Unassigned, No 301 [facility] Name Lisa Ville [id number] [address] [place] [id number] Allergies Active Allergy Reactions Severity Noted Date [...] unspecified type 05/29/2018 Poor nutrition 05/29/2018 S/P HEAD UP OPERATOR HELPER shunt 05/29/2018 Self-catheterizes urinary bladder 05/29/2018 Overview: [...] Procedure Name Priority Date/Time Associated Diagnosis Comments DME/SUPPLY JUSTIFICATION Routine 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 documented in this encounter Results Not on filedocumented in this encounter Additional Health Concerns Infection Noted Time Resolved Time Contact - ESBL 02/15/2017 10:56 AM CDT documented as of this encounter Insurance Payer Benefit Plan / Subscriber ID Effective Dates Phone Address Type Group [facility] xxxxxxxxx 2017-Present Medicaid COMM PLAN - PLUS MANAGED MEDICAID [facility] TOTAL VISION [facility] TOTAL [id number] 2016-Present Vision VISION AETNA AETNA HMO [id number] 2018-Present HMO documented as of this encounter Advance Directives Name Relationship Healthcare Agent Communication Relationship Isabel Estrella Mother Primary healthcare agent [email or web address]
[2019-10-05] MEDS ORDERED: CEFTRIAXONE/SWI 1gm 1 GM/10 ML SYR ONE (11:58)
[2019-10-05] MEDS ORDERED: ACETAMINOPHEN 500 MG TAB ONE (11:58)
[2019-10-05] MEDS ORDERED: Levofloxacin500mg IV 500 MG/100 ML BAG IV ONE (11:58)
[2019-10-05] MEDS ORDERED: NA CHLORIDE 0.9% 1,000 ML ONE (11:58)
--- NOTE | 2019-10-05 12:30 | RAD REPORT ---
EXAM DESCRIPTION: RAD - Chest Single View - 10/05/2019 12:10 pm CLINICAL HISTORY: COUGH Chest pain. COMPARISON: Chest Single View dated 08/20/2019; Chest Single View dated 07/18/2017; Chest Single View dated 07/18/2017; Chest Single View dated 07/10/2017 FINDINGS: Portable technique limits examination quality. The lungs are grossly clear. The heart is normal in size. Severe scoliosis of the spine.Right-sided s rayo tubing is noted. IMPRESSION: No acute intrathoracic process suspected.
[2019-10-05 13:40] LABS: Absolute Lymphocytes (CBC) 2.4 K/uL (0.7-4.9); Basophils % 0.5 % (0-1.3); Hematocrit 38.6 % (36.0-45.0); Lymphocytes % 30.5 % (15.3-44.8); MPV 8.7 fL (7.6-11.3)
[2019-10-05 13:57] LABS: ALT/SGPT 18 U/L (12-78); AST/SGOT 16 U/L (15-37); Albumin 3.9 g/dL (3.4-5.0); Alkaline Phosphatase 108 U/L (45-117); BUN Blood Urea Nitrogen 5 mg/dL (7-18); Bicarbonate 24 mmol/L (21-32); Bilirubin Total 0.4 mg/dL (0.2-1.0); Glucose Level 103 mg/dL (74-106); Potassium 3.6 mmol/L (3.5-5.1); Protein, Total 7.7 g/dL (6.4-8.2); Sodium Level 142 mmol/L (136-145)
--- NOTE | 2019-10-05 14:41 | EDPHYS ---
Physician Documentation [facility] Name: Shari Estrella Age: 29 yrs Sex: Female : 1990 Arrival Date: 10/05/2019 Time: 11:32 Bed 2 Private MD: KELTON Physician Joel Ariza HPI: 10/04 11:51 This 29 yrs old Female presents to ER via EMS with complaints of Abscess, ira Nausea/Vomiting. 11:51 The patient presents with cellulitis of the right gluteus pantera. Description: ira erythematous. Onset: The symptoms/episode began/occurred 2 day(s) ago. Historical: - Allergies: 11:39 Adhesives; em 11:39 Bactrim; em 11:39 Latex, Natural Rubber; em 11:39 Sulfa (Sulfonamide Antibiotics); em 11:39 Vancomycin; em 11:39 Demerol; em - Home Meds: 11:39 labetalol Oral [Active]; Oxycodone HCl Oral [Active]; em - PMHx: 11:39 Hypertension; spina-bifida; em - PSHx: 11:39 Back Surgery; Shunt Placement; em - Immunization history:: Adult Immunizations up to date. - Social history:: Smoking status: Patient denies any tobacco usage or history of. ROS: 11:52 Eyes: Negative for injury, pain, redness, and discharge, ENT: Negative for injury, ira pain, and discharge, Neck: Negative for injury, pain, and swelling, Cardiovascular: Negative for chest pain, palpitations, and edema, Respiratory: Negative for shortness of breath, cough, wheezing, and pleuritic chest pain, Abdomen/GI: Negative for abdominal pain, nausea, vomiting, diarrhea, and constipation, Back: Negative for injury and pain, : Negative for injury, bleeding, discharge, and swelling, Skin: Negative for injury, rash, and discoloration, Neuro: Negative for headache, weakness, numbness, tingling, and seizure, Psych: Negative for depression, anxiety, suicide ideation, homicidal ideation, and hallucinations, Allergy/Immunology: Negative for hives, rash, and allergies, Endocrine: Negative for neck swelling, polydipsia, polyuria, polyphagia, and marked weight changes, Hematologic/Lymphatic: Negative for swollen nodes, abnormal bleeding, and unusual bruising. 11:52 MS/extremity: Positive for erythema, pain, swelling, tenderness, of the right gluteus pantera. Exam: 11:52 Constitutional: This is a well developed, well nourished patient who is awake, alert, ira and in no acute distress. Head/Face: Normocephalic, atraumatic. Eyes: Pupils equal round and reactive to light, extra-ocular motions intact. Lids and lashes normal. Conjunctiva and sclera are non-icteric and not injected. Cornea within normal limits. Periorbital areas with no swelling, redness, or edema. ENT: Nares patent. No nasal discharge, no septal abnormalities noted. Tympanic membranes are normal and external auditory canals are clear. Oropharynx with no redness, swelling, or masses, exudates, or evidence of obstruction, uvula midline. Mucous membranes moist. Neck: Trachea midline, no thyromegaly or masses palpated, and no cervical lymphadenopathy. Supple, full range of motion without nuchal rigidity, or vertebral point tenderness. No Meningismus. Chest/axilla: Normal chest wall appearance and motion. Nontender with no deformity. No lesions are appreciated. Respiratory: Lungs have equal breath sounds bilaterally, clear to auscultation and percussion. No rales, rhonchi or wheezes noted. No increased work of breathing, no retractions or nasal flaring. Abdomen/GI: Soft, non-tender, with normal bowel sounds. No distension or tympany. No guarding or rebound. No evidence of tenderness throughout. Back: No spinal tenderness. No costovertebral tenderness. Full range of motion. Female : Normal external genitalia. MS/ Extremity: Pulses equal, no cyanosis. Neurovascular intact. Full, normal range of motion. Neuro: Awake and alert, GCS 15, oriented to person, place, time, and situation. Cranial nerves II-XII grossly intact. Motor strength 5/5 in all extremities. Sensory grossly intact. Cerebellar exam normal. Normal gait. Psych: Awake, alert, with orientation to person, place and time. Behavior, mood, and affect are within normal limits. 11:52 Cardiovascular: Rate: tachycardic, Rhythm: regular, Pulses: Pulses are 4+ in bilateral radial, brachial, femoral, popliteal, posterior tibial and and dorsalis pedis arteries.. Heart sounds: normal, Edema: is not appreciated, JVD: is noted bilaterally. 11:52 Respiratory: Exam negative for 11:52 Abdomen/GI: Inspection: Rectal exam: is unremarkable, Stool: Liver: no appreciated palpable abnormalities, Hernia: not appreciated. Vital Signs: 11:32 BP 122 / 88; Pulse 107; Resp 18; Temp 99.6; Pulse Ox 97% on R/A; Weight 33.57 kg; Pain em 0/10; 14:20 BP 126 / 94; Pulse 101; Resp 18; Pulse Ox 99% on R/A; Pain 0/10; em 15:30 BP 148 / 83; Pulse 89; Resp 18; Pulse Ox 99% on R/A; em 16:15 BP 122 / 87; Pulse 91; Resp 18; Pulse Ox 99% on R/A; Pain 10/10; em 17:19 BP 113 / 81; Pulse 100; Resp 18; Temp 98.8; Pulse Ox 97% on R/A; Pain 2/10; em MDM: 11:40 Patient medically screened. [facility] 11:55 Data reviewed: vital signs, nurses notes, lab test result(s), radiologic studies, plain ira films. 10/04 11:49 Order name: CBC with Diff; Complete Time: 14:00 [facility] 10/04 11:49 Order name: Comprehensive Metabolic Panel; Complete Time: 14:00 [facility] 10/04 11:49 Order name: Blood Culture Adult (2) [facility] 10/04 11:49 Order name: Urine Culture [facility] 10/04 11:49 Order name: Lactate; Complete Time: 14:00 [facility] 10/04 11:49 Order name: Procalcitonin; Complete Time: 14:29 [facility] 10/04 11:49 Order name: Urine Dipstick-Ancillary (obtain specimen); Complete Time: 14:38 [facility] 10/04 11:49 Order name: Chest Single View XRAY; Complete Time: 12:53 [facility] 10/04 14:40 Order name: Urine Dipstick--Ancillary (enter results) ms Administered Medications: 12:00 Drug: Tylenol 500 mg Route: PO; em 14:35 Follow up: Response: No adverse reaction em 14:30 Drug: Rocephin 1 grams Route: IV; Rate: per protocol; Site: right forearm; em 14:35 Follow up: Response: No adverse reaction; IV Status: Completed infusion; IV Intake: 10mlem 14:34 Drug: levofloxacin 250 mg Volume: 50 ml; Route: IVPB; Infused Over: 60 mins; Site: em right forearm; 15:35 Follow up: Response: No adverse reaction; IV Status: Completed infusion; IV Intake: 50mlem 14:35 Drug: NS 0.9% (30 ml/kg) 30 ml/kg Route: IV; Rate: bolus; Site: right forearm; em 16:00 Follow up: IV Status: Completed infusion; IV Intake: 1000ml em 16:15 Drug: Robbins 10 mg-325 mg 1 tabs Route: PO; em 17:20 Follow up: Response: No adverse reaction; Marked relief of symptoms; Pain is decreased em Disposition: 10/05/19 14:41 Hospitalization ordered by Tristen Siu for Inpatient Admission. Preliminary diagnosis are Cellulitis of buttock, Sacral spina bifida without hydrocephalus, Fever, unspecified, Urinary tract infection, site not specified. - Bed requested for Telemetry/MedSurg (Inpatient). - Status is Inpatient Admission. em - Condition is Stable. - Problem is new. - Symptoms have improved. Signatures: Dispatcher [employer] EDJoel Contreras MD MD cha Munoz, Edgar, RN RN Pamela Patel ms Corrections: (The following items were deleted from the chart) 17:03 14:41 Hospitalization Ordered by Tristen Siu for Inpatient Admission. Preliminary ms diagnosis is Cellulitis of buttock; Sacral spina bifida without hydrocephalus; Fever, unspecified; Urinary tract infection, site not specified. Bed requested for Telemetry/MedSurg (Inpatient). Status is Inpatient Admission. Condition is Stable. Problem is new. Symptoms have improved. [facility] 18:15 17:03 10/05/2019 14:41 Hospitalization Ordered by Tristen Siu for Inpatient em Admission. Preliminary diagnosis is Cellulitis of buttock; Sacral spina bifida without hydrocephalus; Fever, unspecified; Urinary tract infection, site not specified. Bed requested for Telemetry/MedSurg (Inpatient). Status is Inpatient Admission. Condition is Stable. Problem is new. Symptoms have improved. ms
--- NOTE | 2019-10-05 14:41 | ER ---
Nurse's Notes [facility] Name: Shari Estrella Age: 29 yrs Sex: Female : 1990 Arrival Date: 10/05/2019 Time: 11:32 Bed 2 Private MD: Diagnosis: Cellulitis of buttock;Sacral spina bifida without hydrocephalus;Fever, unspecified;Urinary tract infection, site not specified Presentation: 10/04 11:32 Chief complaint: EMS states: called out for abscess on right buttocks, was admitted 1 em month ago for the same thing, also reports N/V and low grade fever, also reports cloudy and smelly urine, denies pain. Coronavirus screen: The patient has NOT traveled to [place] in the past 14 days. Proceed with normal triage procedures. Ebola Screen: Patient negative for fever greater than or equal to 101.5 degrees Fahrenheit, and additional compatible Ebola Virus Disease symptoms Patient denies exposure to infectious person. Patient denies travel to an Ebola-affected area in the 21 days before illness onset. No symptoms or risks identified at this time. Initial Sepsis Screen: Does the patient meet any 2 criteria? HR > 90 bpm. No. Patient's initial sepsis screen is negative. Does the patient have a suspected source of infection? Yes: Skin breakdown/wound. Risk Assessment: Do you want to hurt yourself or someone else? Patient reports no desire to harm self or others. 11:32 Method Of Arrival: EMS: [facility] em 11:32 Acuity: SAMAN 3 em Historical: - Allergies: 11:39 Adhesives; em 11:39 Bactrim; em 11:39 Latex, Natural Rubber; em 11:39 Sulfa (Sulfonamide Antibiotics); em 11:39 Vancomycin; em 11:39 Demerol; em - Home Meds: 11:39 labetalol Oral [Active]; Oxycodone HCl Oral [Active]; em - PMHx: 11:39 Hypertension; spina-bifida; em - PSHx: 11:39 Back Surgery; Shunt Placement; em - Immunization history:: Adult Immunizations up to date. - Social history:: Smoking status: Patient denies any tobacco usage or history of. Screenin:32 Abuse screen: Denies threats or abuse. Nutritional screening: No deficits noted. em Tuberculosis screening: No symptoms or risk factors identified. Fall Risk None identified. Assessment: 11:32 General: Appears in no apparent distress. comfortable, Behavior is calm, cooperative, em Reports fever for 12-24 hours. Pain: Denies pain. Neuro: Level of Consciousness is awake, alert, obeys commands, Oriented to person, place, time, situation, Appropriate for age. Cardiovascular: Capillary refill < 3 seconds Patient's skin is warm and dry. Respiratory: Airway is patent Respiratory effort is even, unlabored, Respiratory pattern is regular, symmetrical. GI: Abdomen is flat, Reports nausea, vomiting. : suprapubic catheter in place Reports smelly urine and cloudy urine. Derm: Skin is intact, is fragile, Skin is pink, warm \T\ dry. Wound noted left gluteus pantera. Musculoskeletal: Capillary refill < 3 seconds, Range of motion: intact in all extremities. 12:30 Reassessment: Patient appears in no apparent distress at this time. Patient and/or em family updated on plan of care and expected duration. Pain level reassessed. Patient is alert, oriented x 3, equal unlabored respirations, skin warm/dry/pink. Patient denies pain at this time. 16:00 Reassessment: request something for pain, reports chronic back pain and takes em hydrocodone 10mg Tylenol 325mg provider notified. 17:20 Reassessment: Patient appears in no apparent distress at this time. Patient and/or em family updated on plan of care and expected duration. Pain level reassessed. Patient is alert, oriented x 3, equal unlabored respirations, skin warm/dry/pink. rates pain 2/10 Patient states feeling better. Vital Signs: 11:32 BP 122 / 88; Pulse 107; Resp 18; Temp 99.6; Pulse Ox 97% on R/A; Weight 33.57 kg; Pain em 0/10; 14:20 BP 126 / 94; Pulse 101; Resp 18; Pulse Ox 99% on R/A; Pain 0/10; em 15:30 BP 148 / 83; Pulse 89; Resp 18; Pulse Ox 99% on R/A; em 16:15 BP 122 / 87; Pulse 91; Resp 18; Pulse Ox 99% on R/A; Pain 10/10; em 17:19 BP 113 / 81; Pulse 100; Resp 18; Temp 98.8; Pulse Ox 97% on R/A; Pain 2/10; em ED Course: 11:32 Patient arrived in ED. em 11:32 Patient has correct armband on for positive identification. Placed in gown. Bed in low em position. Call light in reach. Adult w/ patient. Pulse ox on. NIBP on. 11:38 Triage completed. em 11:39 Arm band placed on. em 11:40 Joel Ariza MD is Attending Physician. ira 11:49 Paulo Xie, CHATA is Primary Nurse. em 12:10 Chest Single View XRAY In Process Unspecified. EDMS 13:25 Inserted saline lock: 22 gauge in left forearm, using aseptic technique. Blood aa5 collected. 13:25 Initial lab(s) drawn, by me, sent to lab. First set of blood cultures drawn by me. aa5 14:35 suprapubic cath 16 Fr, returned cloudy urine, tolerated well. em 14:39 Tristen Siu is Hospitalizing Provider. ira 18:10 No provider procedures requiring assistance completed. Patient transferred, IV remains em in place. Administered Medications: 12:00 Drug: Tylenol 500 mg Route: PO; em 14:35 Follow up: Response: No adverse reaction em 14:30 Drug: Rocephin 1 grams Route: IV; Rate: per protocol; Site: right forearm; em 14:35 Follow up: Response: No adverse reaction; IV Status: Completed infusion; IV Intake: 10mlem 14:34 Drug: levofloxacin 250 mg Volume: 50 ml; Route: IVPB; Infused Over: 60 mins; Site: em right forearm; 15:35 Follow up: Response: No adverse reaction; IV Status: Completed infusion; IV Intake: 50mlem 14:35 Drug: NS 0.9% (30 ml/kg) 30 ml/kg Route: IV; Rate: bolus; Site: right forearm; em 16:00 Follow up: IV Status: Completed infusion; IV Intake: 1000ml em 16:15 Drug: Amboy 10 mg-325 mg 1 tabs Route: PO; em 17:20 Follow up: Response: No adverse reaction; Marked relief of symptoms; Pain is decreased em Intake: 14:35 IV: 10ml; Total: 10ml. em 15:35 IV: 50ml; Total: 60ml. em 16:00 IV: 1000ml; Total: 1060ml. em Outcome: 14:41 Decision to Hospitalize by Provider. ira 18:11 Admitted to Med/surg accompanied by tech, family with patient, via stretcher, room 232, em with chart, Report called to CHATA Villatoro 18:11 Condition: good 18:11 Instructed on the need for admit, Demonstrated understanding of instructions. 18:15 Patient left the ED. em Signatures: Dispatcher [employer] Joel Benjamin MD MD cha Munoz, Edgar, RN RN em Shiela Hooks, RN RN aa5 Corrections: (The following items were deleted from the chart) 17:19 11:32 Derm: Wound noted right gluteus pantera em em
[2019-10-05 14:51] LABS: Urine Blood NEGATIVE (NEG); Urine Glucose NEGATIVE (NEG); Urine Protein NEGATIVE (NEG); Urine Specific Gravity 1.015 (1.005-1.030)
--- NOTE | 2019-10-05 15:45 | P.HP ---
Certification for Inpatient Patient admitted to: Inpatient With expected LOS: >2 Midnights Practitioner: I am a practitioner with admitting privileges, knowledge of patient current condition, hospital course, and medical plan of care. Services: Services provided to patient in accordance with Admission requirements found in Title 42 Section 412.3 of the Code of Federal Regulations Patient History Date of Service: 10/05/19 Reason for admission: Nausea and vomiting and fever History of Present Illness: 29-year-old lady with a history of spina bifida, recurrent UTI and left gluteal decubitus ulcer presented to the ED via EMS with the complaint of nausea and vomiting and fever at home. Patient was hospitalized about 6 weeks ago for left gluteal abscess and urinary tract infection. She was treated with antibiotics and sent home with a 2 week course of IV vancomycin and cefepime. Patient finished the antibiotics course about 1 month ago. Her UA in the ED suggest some evidence of UTI. She is also complaining of skin breakdown at the site of the previous left gluteal abscess. With the patient's significant history of recurrent UTIs and spinal bifida, she is admitted for further management. Allergies adhesive tape Allergy (Verified 07/29/19 01:10) Rash Latex, Natural Rubber Allergy (Verified 07/29/19 01:10) Rash Sulfa (Sulfonamide Antibiotics) Allergy (Verified 07/29/19 01:10) Hives/Rash sulfamethoxazole [From Bactrim] Allergy (Verified 07/29/19 01:10) Hives trimethoprim [From Bactrim] Allergy (Verified 07/29/19 01:10) Hives vancomycin Allergy (Verified 07/29/19 01:10) Hives/Rash Adhesives Allergy (Uncoded 07/08/17 16:36) Unknown Home Medications: Labetalol HCl [Trandate] 200 mg PO BID 08/17/19 Omeprazole 20 mg PO DAILY 08/17/19 Oxycodone HCl/Acetaminophen [Oxycodone-Acetaminophen 10-325] 1 tab PO Q4HP PRN 08/17/19 - Past Medical/Surgical History Diabetic: No -: Stage III decubitus ulcer -: Spina Bifida -: MRSA -: scoliosis -: HTN -: GERD -: Osteomyelitis -: Multiple back surgeries -: Right great toe amputated -: bowel surgery cecostomy -: Suprapubic stoma -: MACHINE TRIMMER shunt - Family History Mother -: Hypertension, Diabetes, Other (see notes) Notes: Lupus Father -: Hypertension Notes: Hyperlipidemia - Social History Alcohol use: No CD- Drugs: No Caffeine use: Yes Review of Systems Other: Patient denies any diarrhea, denies abdominal pain. Except as documented, all other systems reviewed and negative. Physical Examination - Physical Exam General: Alert, In no apparent distress, Oriented x3 HEENT: Mucous membr. moist/pink, Sclerae nonicteric Neck: Supple, JVD not distended Respiratory: Clear to auscultation bilaterally, Normal air movement Cardiovascular: No edema, Normal pulses, Regular rate/rhythm, Normal S1 S2 Capillary refill: <2 Seconds Gastrointestinal: Normal bowel sounds, Soft and benign, Non-distended, No tenderness Musculoskeletal: No swelling, No erythema Integumentary: Other (Skin breakdown at the site of healed left gluteal abscess. ) Neurological: Normal strength at 5/5 x4 extr, Cranial nerves 3-12 intact - Studies Laboratory Data (last 24 hrs) 10/05/19 13:25: Sodium 142, Potassium 3.6, BUN 5 L, Creatinine 0.36 L, Glucose 103, Total Bilirubin 0.4, AST 16, ALT 18, Alkaline Phosphatase 108 10/05/19 13:25: WBC 7.9, Hgb 12.9, Hct 38.6, Plt Count 359 Assessment and Plan - Problems (Diagnosis) (1) Stage II pressure ulcer of left buttock Current Visit: Yes Status: Acute (2) UTI (urinary tract infection) Onset Date: 07/12/15 Current Visit: No Status: Acute Qualifiers: (3) Spina bifida Onset Date: 06/01/17 Current Visit: No Status: Chronic Qualifiers: - Plan Admit to the medical floor. Start IV vancomycin and IV Rocephin given history of MRSA. Pain medication as needed. Urine culture Local wound care Pressure ulcer precautions. - Advance Directives Does patient have a Living Will: No Does patient have a Durable POA for Healthcare: No
[2019-10-05] MEDS ORDERED: HYDROCODONE/APAP 10/325 TAB ONE (16:15)
[2019-10-05] MEDS ORDERED: VANCOMYCIN 1 GM in NA CHLORIDE 0.9% 250 ML IVPB SCH (18:18)
[2019-10-05] MEDS ORDERED: ONDANSETRON 4 MG/2 ML VIAL IV PRN (18:18)
[2019-10-05] MEDS ORDERED: ACETAMINOPHEN 500 MG TAB PO PRN (18:18)
[2019-10-05] MEDS: NA CHLORIDE 0.9% 1,000 ML IV SCH (18:40)
[2019-10-05] MEDS: HEPARIN 5000 UNIT/ML 1 ML VIAL SQ SCH (20:12)
[2019-10-05] MEDS ORDERED: DIPHENHYDRAMINE 25 MG TAB/CAP PO ONE (20:27)
[2019-10-05] MEDS ORDERED: ACETAMINOPHEN 325 MG TABLET PO PRN ×2 (20:53→21:00)
[2019-10-05] MEDS ORDERED: POTASSIUM CL SA 10 MEQ TAB PO ONE (21:00)
[2019-10-05] MEDS: OXYCODONE HCL 5 MG TAB PO PRN (21:46)
[2019-10-05] MEDS: LABETALOL HCL 100 MG TAB PO SCH (21:50)
[2019-10-06 02:21] VITALS: BMI 29.5
[2019-10-06] MEDS: OXYCODONE HCL 5 MG TAB PO PRN ×5 (02:33→22:28)
[2019-10-06 05:08] LABS: Absolute Lymphocytes (CBC) 2.4 K/uL (0.7-4.9); Basophils % 0.7 % (0-1.3); Hematocrit 32.4 % (36.0-45.0); Lymphocytes % 38.7 % (15.3-44.8); MPV 8.7 fL (7.6-11.3); RBC Red Blood Cell Count 3.51 M/uL (3.86-4.86)
[2019-10-06] MEDS: NA CHLORIDE 0.9% 1,000 ML IV SCH ×2 (05:09→20:20)
[2019-10-06 05:24] LABS: BUN Blood Urea Nitrogen 6 mg/dL (7-18); Bicarbonate 23 mmol/L (21-32); Glucose Level 87 mg/dL (74-106); Magnesium 1.6 mg/dL (1.8-2.4); Phosphorus 2.7 mg/dL (2.5-4.9); Potassium 3.7 mmol/L (3.5-5.1); Sodium Level 143 mmol/L (136-145)
[2019-10-06] MEDS ORDERED: POTASSIUM CL SA 10 MEQ TAB PO ONE (05:49)
[2019-10-06] MEDS ORDERED: MAGNESIUM SULFATE 1 gm IVPB 1 GM/100 ML BAG IV ONE (05:49)
[2019-10-06 07:00] LABS: Urine Appearance TURBID; Urine Bilirubin NEGATIVE (NEG); Urine Blood 2+ (NEG); Urine Color YELLOW; Urine Glucose NEGATIVE (NEG); Urine Protein 1+ (NEG); Urine Urobilinogen 0.2 mg/dL (0.2-1.0)
[2019-10-06 07:05] LABS: Urine Microscopic Reflex ORDER UMIC
[2019-10-06 08:15] LABS: Urine Bacteria 20-50 /HPF (<20); Urine Mucus 4+ /HPF (NONE SEEN); Urine RBC 20-50 /HPF (NONE SEEN)
[2019-10-06 08:17] LABS: Urine Culture Reflex Order NOT NEEDED
[2019-10-06] MEDS: LABETALOL HCL 100 MG TAB PO SCH ×2 (08:40→20:17)
[2019-10-06] MEDS: PANTOPRAZOLE 40MG TABLET PO SCH (08:40)
[2019-10-06] MEDS: CEFTRIAXONE/SWI 1gm 1 GM/10 ML SYR IVP SCH (08:41)
[2019-10-06] MEDS: HEPARIN 5000 UNIT/ML 1 ML VIAL SQ SCH ×2 (08:41→20:17)
[2019-10-06] MEDS ORDERED: INFLUENZA VACCINE (for 3y+) 0.5 ML DOSE IMVAC ONE (10:00)
--- NOTE | 2019-10-06 18:14 | PN ---
Date of Progress Note: 10/06/2019 Subjective: Patient seen and examined. Chart reviewed and case discussed with RN. Patient doing we ll overall. Does still report some urinary symptoms. Medications: List reviewed. Physical Examination: Vital Signs: Temperature 97.8, heart rate 76, blood pressure 135/76, respirations 16, O2 97% on room air. General: Awake, alert, oriented x3, some mild distress. CV: S1, S2. Regular rate and rhythm. Peripheral pulses present. Respiratory: Moving air well bilaterally. No wheezing or stridor. No use of accessory muscles. Gastrointestinal: Abdomen is soft, nontender, nondistended. Positive bowel sounds. Extremities: No clubbing or cyanosis. Patient has pedal edema. Neuro: Patient has spina bifida, lower extremity paralysis, paraplegia. Skin: Wound on the left buttock from chronic pressure. Laboratory Data: WBC 6.2, H and H 10.9 and 32.4, platelets 302. Sodium 143, potassium 3.7, chloride 114, CO2 of 23, BUN 6, creatinine 0.89, glucose 87, calcium 8.3, phosphorus 2.7, magnesium 1.6. Blo od cultures pending, no growth to date. Urine culture 100,000 colony-forming units of 4+ gram-negati ve rods. Wound culture from the left buttock shows no growth to date. Assessment: A 29-year-old female with: 1.Recurrent acute cystitis with hematuria. We will continue with intravenous antibiotics and follow up on cultures. Urine culture growing out gram-negative rods. 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 2.Stage II pressure ulcer of the left buttock. Wound cultures show no growth to date. Continue wit h wound care and offloading. 3.Spina bifida. 4.Essential hypertension. Continue home medications as appropriate. 5.Gastroesophageal reflux disease. Continue proton pump inhibitor. Plan: Follow up on cultures. Continue antibiotics. Likely discharge in the next 24 to 72 hours dep ending on clinical response. May end up needing a PICC line set up for long-term IV antibiotics at [facility]. SA/MODL Voice ID: [id number] Report ID: [id number]
[2019-10-07] MEDS: ZOLPIDEM TARTRATE 5 MG TABLET PO PRN ×2 (00:33→22:31)
[2019-10-07 04:33] LABS: BUN Blood Urea Nitrogen 3 mg/dL (7-18); Bicarbonate 26 mmol/L (21-32); Glucose Level 101 mg/dL (74-106); Magnesium 1.7 mg/dL (1.8-2.4); Potassium 3.6 mmol/L (3.5-5.1); Sodium Level 141 mmol/L (136-145)
[2019-10-07] MEDS ORDERED: MAGNESIUM SULFATE 1 gm IVPB 1 GM/100 ML BAG IV ONE (04:44)
[2019-10-07] MEDS ORDERED: POTASSIUM CL SA 10 MEQ TAB PO ONE (04:44)
[2019-10-07] MEDS: OXYCODONE HCL 5 MG TAB PO PRN ×4 (06:40→18:47)
[2019-10-07] MEDS: CEFTRIAXONE/SWI 1gm 1 GM/10 ML SYR IVP SCH (08:39)
[2019-10-07] MEDS: LABETALOL HCL 100 MG TAB PO SCH ×2 (08:39→20:01)
[2019-10-07] MEDS: HEPARIN 5000 UNIT/ML 1 ML VIAL SQ SCH ×2 (08:39→20:00)
[2019-10-07] MEDS: PANTOPRAZOLE 40MG TABLET PO SCH (08:39)
[2019-10-07] MEDS: NA CHLORIDE 0.9% 1,000 ML IV SCH ×2 (10:32→22:31)
[2019-10-07] MEDS: DOXYCYCLINE 100 MG in NA CHLORIDE 0.9% 100 ML IVPB SCH (20:00)
--- NOTE | 2019-10-07 20:23 | PN ---
Date of Progress Note: 10/07/2019 Subjective: Patient seen and examined, chart reviewed, and case discussed with RN and Dr. Ibarra. Patient is still having some nausea. No vomiting, however. Not really able to tolerate her diet. Medications: List reviewed. Physical Examination: Vital Signs: Temperature 96.9, heart rate 99, blood pressure 137/84, respirations 17, O2 97% on room air. General: Awake, alert, oriented x3. In some mild distress. Ill-appearing female. CV: S1, S2. Regular rate and rhythm. Peripheral pulses present. Respiratory: Moving air well bilaterally. No wheezing or stridor. Gastrointestinal: Abdomen is soft, nontender, nondistended. Positive bowel sounds. Extremities: No clubbing or cyanosis. Patient has lower extremity edema. Neuro: Paraplegia. Skin: Patient has left buttock lesion. Laboratory Data: Sodium 141, potassium 3.6, chloride 112, CO2 of 26, BUN 3, creatinine 0.23, glucose 101, calcium 8.5, magnesium 1.7. WBC is pending. Blood cultures: Preliminarily, 1 bottle growing out gram-positive cocci in clusters. Wound culture growing out 2+ gram-negative rods. Urine culture growing out E coli with multiple drug resistance including fluoroquinolones, cefuroxime, and Zosyn. Assessment And Plan: A 29-year-old female with: 1. Recurrent acute cystitis with hematuria secondary to Escherichia coli with multidrug resistance. Patient has failed outpatient treatment with Augmentin. We will continue on Rocephin for now. ID consultation. Patient may need IV antibiotics long-term. 2. Stage III pressure ulcer of the left buttock. Cultures showing gram- negative rods. We will await final ID and sensitivity. Continue wound care and offloading. 3. Spina bifida with paraplegia. 4. Essential hypertension, stable. 5. Gastroesophageal reflux disease without esophagitis. We will continue PPI. SA/MODL Voice ID: [id number] Report ID: [id number] [facility]
[2019-10-08] MEDS: OXYCODONE HCL 5 MG TAB PO PRN ×3 (00:08→13:33)
[2019-10-08 04:22] LABS: Absolute Lymphocytes (CBC) 2.9 K/uL (0.7-4.9); Basophils % 0.6 % (0-1.3); Hematocrit 32.7 % (36.0-45.0); Lymphocytes % 45.9 % (15.3-44.8); MPV 8.5 fL (7.6-11.3); RBC Red Blood Cell Count 3.57 M/uL (3.86-4.86)
[2019-10-08 04:38] LABS: BUN Blood Urea Nitrogen 4 mg/dL (7-18); Bicarbonate 28 mmol/L (21-32); Glucose Level 109 mg/dL (74-106); Magnesium 1.9 mg/dL (1.8-2.4); Potassium 4.1 mmol/L (3.5-5.1); Sodium Level 142 mmol/L (136-145)
[2019-10-08] MEDS: LABETALOL HCL 100 MG TAB PO SCH (08:08)
[2019-10-08] MEDS: CEFTRIAXONE/SWI 1gm 1 GM/10 ML SYR IVP SCH (08:08)
[2019-10-08] MEDS: PANTOPRAZOLE 40MG TABLET PO SCH (08:08)
[2019-10-08] MEDS: HEPARIN 5000 UNIT/ML 1 ML VIAL SQ SCH (08:09)
[2019-10-08] MEDS: DOXYCYCLINE 100 MG in NA CHLORIDE 0.9% 100 ML IVPB SCH (08:09)
[2019-10-08] MEDS ORDERED: MEDIHONEY 44 ML TOPICAL TUBE TOP SCH (09:00)
[2019-10-08 11:30] VITALS: BP 136/82; TEMP 97.9
[2019-10-08] MEDS: NA CHLORIDE 0.9% 1,000 ML IV SCH (12:58)
[2019-10-08 14:40] VITALS: O2SAT 98
--- NOTE | 2019-10-08 15:46 | CON ---
History Of Present Illness: This is a known case to me from previous admission. The patient is a 29-year-old female coming in with urinary tract infection and left ischial stage IV wound, which has been treated by me in the past stage IV wound. Patient denies any headache, nausea, vomiting, chest pain, abdominal pain, constipation, or diarrhea. Initial symptoms were nausea and f patricia and burning urination. Patient does self cath on herself as she has a history of spina bifida. Past Medical History: Includes spina bifida with recurrent sacrococcygeal wound, recurrent urinary t ract infection, MRSA infection, scoliosis, hypertension, GERD, osteomyelitis, multiple back surgeries , right greater toe amputation, suprapubic stoma, WARES SORTER shunt. Social History: Nonsmoker, nondrinker. Family History: Noncontributory. Medications: Rocephin and doxycycline. See MAR for other medications. Allergies: SULFA DRUGS AND VANCOMYCIN, ADHESIVE TAPES. Review of Systems: A 10-point review was performed. Physical Examination: General: This is a 29-year-old female, lying in bed, not in any acute cardiopulmonary distress. Vital Signs: Temperature 97, pulse 81, respirations 16, blood pressure 136/82. HEENT: Unremarkable. Neck: Supple. Lungs: Clear to auscultation. Heart: S1, S2. Regular. Abdomen: Soft, nontender. Bowel sounds present. EXTREMITIES: No edema noted. Left ischial wound 3.5 x 2 and 1 cm in depth. Good granulation tissue . Laboratory Data: WBC 6.2, hemoglobin 10.9, platelets 289. Sodium 142, potassium 4.1, chloride 110, bicarb 28, BUN 4, creatinine 0.3, glucose 109. Assessment And Plan: A 29-year-old female with recurrent urinary tract infection, coming in with uri nary tract infection secondary to Escherichia coli. Wound cultures are also growing Escherichia coli , currently being treated with Rocephin and doxycycline. We will recommend to continue treatment wit h cefdinir, total course of 2 weeks as patient needs to be treated for the wound infection also. Con tinue silver alginate to the wound site Sunday, Sunday, Sunday. We will follow the patient closel y and [facility] in 2 weeks' time. Continue supportive care and wound care. Thank you Dr. Ramos for consult. NF/MODL Voice ID: [id number] Report ID: [id number]
--- NOTE | 2019-10-09 01:47 | DS ---
Date of Discharge: 10/08/2019 Dermatopathologist: Dr. Ibarra with Infectious Disease. Admitting Diagnoses: 1.Urinary tract infection. 2.Stage III pressure ulcer of the left buttock. 3.Spina bifida. Discharge Diagnoses: 1.Recurrent acute cystitis with hematuria secondary to Escherichia coli with multidrug resistance. 2.History of pressure ulcer of the left buttock secondary to Escherichia coli. 3.Spina bifida with paraplegia. 4.Essential hypertension. 5.Gastroesophageal reflux disease without esophagitis. Hospital Course: Patient is a 29-year-old female with spina bifida, who has had multiple admissions for recurrent urinary tract infections. Patient recently finished up course of antibiotics with vanc omycin, cefepime, and also had Augmentin. Patient comes in with nausea, vomiting, fever, found to myles ve UTI again. She was started on Rocephin. Her urine cultures grew out E coli, which was multi-drug resistant, but was sensitive to Rocephin. Her wound from the left buttock also grew out E coli with similar resistance pattern. Patient was seen by Infectious Disease and Wound Healing. Patient was counseled regarding offloading and we will continue with MediHoney on the wound on her buttocks. As far as her UTI and infection of the wound is concerned, she was able to be switched to oral antibioti cs. She had bad outcome with Augmentin in the recent past, therefore will be on cefdinir and doxycyc line due to the different sensitivities of the 2 strands of E coli. The patient will need to follow up closely with her primary care physician and Infectious Disease doctor as well as her urologist. Te zamarripa does have a suprapubic catheter. Her blood cultures grew out coagulase-negative Staph, which is likely a skin contaminant. She is not bacteremic. Patient was feeling well. Her nausea and vomi ting improved. She was able to tolerate a diet. She was afebrile. She was then cleared for dischar ge from makeup sales consultant's standpoint, was sent home in a stable condition. Activity: As tolerated. Medications: As per medication reconciliation list. Followup: Follow up with primary care physician, Dr. Smallwood in 2-3 days. Follow up with Infectious Disease, Dr. Ibarra in 2 weeks. Follow up with the [facility] in 1 week and followup with primary urologist in [place] as scheduled. Return to ER for worsening condition. Diet: Heart healthy. Physical Examination: General: Awake, alert, and oriented x3. No acute distress. CV: S1, S2. Respiratory: Moving air well bilaterally. Abdomen: Abdomen is soft, nontender, nondistended. Positive bowel sounds. Extremities: No clubbing, cyanosis. Patient has pedal edema. Neuro: Paraplegia. Skin: Patient has wound on the left buttock, stage III. Total time spent discharging patient was 41 minutes. /TENZIN Voice ID: [id number] Report ID: [id number]
== END 2019-10-08 14:50 | disposition home health service (06) | DRG 689 ==
LOC: ER 11:31 → ERHOLD 15:52 → 4TH 17:44
PROVIDERS: ADMIT Internal Medicine; ATTEND Internal Medicine
DX: N30.01 Acute cystitis with hematuria (principal); L89.323 Pressure ulcer of left buttock, stage 3; Z16.24 Resistance to multiple antibiotics; G82.20 Paraplegia, unspecified; B96.20 Unspecified Escherichia coli [E. coli] as the cause of diseases classified elsewhere; Q05.9 Spina bifida, unspecified; I10 Essential (primary) hypertension; K21.9 Gastro-esophageal reflux disease without esophagitis
CPT/HCPCS: 36415; 71045; 80048; 80053; 81003; 81015; 81025; 83605; 83735; 84100; 84145; 85025; 87040; 87070; 87077; 87086; 87088; 87186; 87205; 94760; 96361; 96365; 96375; 99251; 99285; J0696; J1644; J3475; J7030

== ENCOUNTER 2019-10-19 11:16 | Observation (INO) | payer OTHER ==
--- OUTSIDE RECORDS SUMMARY | 2019-10-19 11:19 | XMS REPORT ---
:1990 Author Organization [facility] Address [address] [place] [address] [address]. [address] [place] [address] Care Team Providers Name Role Phone Unavailable Unavailable Unavailable Problems This patient has no known problems. Allergies, Adverse Reactions, Alerts This patient has no known allergies or adverse reactions. Medications This patient has no known medications.
--- OUTSIDE RECORDS SUMMARY | 2019-10-19 11:26 | XMS REPORT | Summary of Care ---
:1990 Author Organization [facility] Address [address] [place] [address] Care Team Providers Name Role Phone Shirley Smallwood MD Primary Care Provider Ted Waddell Insurance Hmo Reason for Visit Reason Comments Assessment Encounter Details Date Type Department Care Team Description 10/08/2019 Telephone [facility] Family Medicine Shirley Smallwood MD Assessment - [address] [address] [place] [address] Allergies Active Allergy Reactions Severity Noted Date Comments Latex Rash, Nausea and/or High 02/25/2011 Vomiting Sulfa (Sulfonamide Antibiotics) Rash 11/16/2016 Sulfamethoxazole (Bulk) Hives, Nausea and/or 02/25/2011 Vomiting, Rash Tegaderm Dressing Hives 01/16/2019 Vancomycin Itching, Rash 12/28/2018 documented as of this encounter (statuses as of 10/08/2019) Medications Medication Sig Dispensed Refills Start Date [...] as of this encounter (statuses as of 10/08/2019) Active Problems Problem Noted Date Pressure injury of left buttock, stage 4 07/01/[address] 03/25/2019 Bicornuate uterus 09/23/2018 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 Spicer at [facility] as a ch Scoliosis 05/29/2018 Rh negative state in antepartum period 01/21/2018 Overview: Rhogam at 28 weeks Rubella non-immune status, antepartum 01/21/2018 Overview: Address pp History of miscarriage 01/18/2018 Spina bifida, unspecified hydrocephalus presence, unspecified spinal 2016 region Wheelchair bound 11/16/2016 documented as of this encounter (statuses as of 10/08/2019) Resolved Problems Problem Noted Date Resolved Date [...] as of this encounter (statuses as of 10/08/2019) Immunizations Name Administration Dates Next Due HPV9 [...] ID Effective Dates Phone Address Type Group [facility] STAR xxxxxxxxx 2017-Present Medicaid COMM PLAN - PLUS MANAGED MEDICAID [facility] TOTAL VISION [facility] TOTAL [id number] 2016-Present Vision VISION AETNA AETNA HMO [id number] 2018-Present HMO documented as of this encounter Advance Directives Name Relationship Healthcare Agent Communication Relationship Isabel Estrella Mother Primary healthcare agent [email or web address]
--- OUTSIDE RECORDS SUMMARY | 2019-10-19 11:27 | XMS REPORT | Summary of Care ---
:1990 Author Organization [facility] Address [address] [place] [address] Care Team Providers Name Role Phone Shirley Smallwood MD Primary Care Provider Ted Waddell Insurance Hmo Reason for Visit Reason Comments Orders Encounter Details Date Type Department Care Team Description 10/08/2019 Telephone [facility] Family Medicine Shirley Smallwood MD Orders - [address] [address] [place] [address] Allergies Active Allergy Reactions Severity [...] unspecified type 05/29/2018 Poor nutrition 05/29/2018 S/P BAND MACHINE OPERATOR shunt 05/29/2018 Self-catheterizes urinary bladder 05/29/2018 Overview: spina bifida s/p augmentation cystoplasty and catheterizable channel by Dr. Spicer at [facility] as a ch Scoliosis 05/29/2018 [...] ID Effective Dates Phone Address Type Group [facility] [place] [facility] xxxxxxxxx 2017-Present Medicaid COMM PLAN - PLUS MANAGED MEDICAID [facility] TOTAL VISION [facility] TOTAL [id number] 2016-Present [employer] AETNA HMO [id number] 2018-Present HMO documented as of this encounter Advance Directives Name Relationship Healthcare Agent Communication Relationship Isabel Estrella Mother Primary healthcare agent [email or web address]
--- OUTSIDE RECORDS SUMMARY | 2019-10-19 11:27 | XMS REPORT | Summary of Care ---
:1990 Author Organization [facility] Address [address] [place] [address] Care Team Providers Name Role Phone Shirley Smallwood MD Primary Care Provider Ted Waddell Insurance Hmo Reason for Visit Reason Comments Orders [facility] calling to initiate services Encounter Details Date Type Department Care Team Description 10/08/2019 Telephone [facility] Family Shirley Smallwood, Orders ([facility] calling to [facility] [address] [facility] [address] [place] [address] DR initiate services ) [place] [address] Allergies Active Allergy Reactions Severity Noted Date Comments Latex Rash, Nausea and/or High 02/25/2011 Vomiting Sulfa (Sulfonamide Antibiotics) Rash 11/16/2016 Sulfamethoxazole (Bulk) Hives, Nausea and/or 02/25/2011 Vomiting, Rash Tegaderm Dressing Hives 01/16/2019 Vancomycin Itching, Rash 12/28/2018 documented as of this encounter (statuses as of 10/09/2019) Medications Medication Sig Dispensed Refills Start Date [...] as of this encounter (statuses as of 10/09/2019) Active Problems Problem Noted Date Pressure injury of left buttock, stage 4 07/01/[address] 03/25/2019 Bicornuate uterus 09/23/2018 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 Spicer at [facility] as a ch Scoliosis 05/29/2018 Rh negative state in antepartum period 01/21/2018 Overview: Rhogam at 28 weeks Rubella non-immune status, antepartum 01/21/2018 Overview: Address pp History of miscarriage 01/18/2018 Spina bifida, unspecified hydrocephalus presence, unspecified spinal 2016 region Wheelchair bound 11/16/2016 documented as of this encounter (statuses as of 10/09/2019) Resolved Problems Problem Noted Date Resolved Date [...] as of this encounter (statuses as of 10/09/2019) Immunizations Name Administration Dates Next Due HPV9 [...] ID Effective Dates Phone Address Type Group [facility] [place] [facility] xxxxxxxxx 2017-Present Medicaid COMM PLAN - PLUS MANAGED MEDICAID [facility] TOTAL VISION [facility] TOTAL [id number] 2016-Present [employer] AETNA HMO [id number] 2018-Present HMO documented as of this encounter Advance Directives Name Relationship Healthcare Agent Communication Relationship Isabel Estrella Mother Primary healthcare agent [email or web address]
--- OUTSIDE RECORDS SUMMARY | 2019-10-19 11:27 | XMS REPORT | Summary of Care ---
:1990 Author Organization [facility] Address [address] [place] [address] Care Team Providers Name Role Phone Shirley Smallwood MD Primary Care Provider Ted Waddell Insurance Hmo Reason for Visit Reason Comments Orders [facility] calling to initiate services Encounter Details Date Type Department Care Team Description 10/08/2019 Telephone [facility] Family Shirley Smallwood, Orders ([facility] calling to [facility] [address] [facility] [address] [place] [address] DR initiate services ) [place] [phone] Allergies Active Allergy Reactions [...] unspecified type 05/29/2018 Poor nutrition 05/29/2018 S/P INSTRUCTOR BRIDGE shunt 05/29/2018 Self-catheterizes urinary bladder 05/29/2018 Overview: spina bifida s/p augmentation cystoplasty and catheterizable channel by Dr. Spicer at [facility] as a ch Scoliosis 05/29/2018 Rh [...] Dates Phone Address Type Group [facility] [place] [facility] xxxxxxxxx 2017-Present Medicaid COMM PLAN - PLUS MANAGED MEDICAID [facility] TOTAL VISION [facility] TOTAL [id number] 2016-Present [employer] AETNA HMO [id number] 2018-Present HMO documented as of this encounter Advance Directives Name Relationship Healthcare Agent Communication Relationship Isabel Estrella Mother Primary healthcare agent [email or web address]
[2019-10-19 11:57] LABS: Absolute Lymphocytes (CBC) 2.1 K/uL (0.7-4.9); Basophils % 0.7 % (0-1.3); Hematocrit 38.4 % (36.0-45.0); Lymphocytes % 29.4 % (15.3-44.8); MPV 9.1 fL (7.6-11.3); RBC Red Blood Cell Count 4.17 M/uL (3.86-4.86)
[2019-10-19 12:10] LABS: Urine Blood NEGATIVE (NEG); Urine Glucose NEGATIVE (NEG); Urine Protein NEGATIVE (NEG); Urine Specific Gravity 1.015 (1.005-1.030); Urine pH 6.5 (5.0-7.0)
[2019-10-19 12:14] LABS: ALT/SGPT 18 U/L (12-78); AST/SGOT 13 U/L (15-37); Albumin 3.8 g/dL (3.4-5.0); Alkaline Phosphatase 110 U/L (45-117); BUN Blood Urea Nitrogen 9 mg/dL (7-18); Bicarbonate 24 mmol/L (21-32); Bilirubin Total 0.5 mg/dL (0.2-1.0); Glucose Level 113 mg/dL (74-106); Potassium 3.7 mmol/L (3.5-5.1); Protein, Total 7.6 g/dL (6.4-8.2); Sodium Level 141 mmol/L (136-145)
--- NOTE | 2019-10-19 12:21 | ER ---
Nurse's Notes [facility] Name: Shari Estrella Age: 29 yrs Sex: Female : 1990 Arrival Date: 10/19/2019 Time: 11:20 Bed 14 Private MD: Diagnosis: Cellulitis of buttock;Fever, unspecified Presentation: 10/18 11:21 Chief complaint: EMS states: C/O N/V and fever, hx of chronic wound and frequent UTIs, ph TMAX 103, took oxycodone approx 40 min SQUEEGEER AND FORMER, low grade fever upon arrival to ED. Coronavirus screen: The patient has NOT traveled to a country currently being monitored by the CDC within the last 14 days. The patient has NOT had contact with any known and/or suspected case of coronavirus. Ebola Screen: No symptoms or risks identified at this time. Initial Sepsis Screen: Does the patient meet any 2 criteria? No. Patient's initial sepsis screen is negative. Does the patient have a suspected source of infection? Yes: Dysuria/Frequency/Urgency/UTI Skin breakdown/wound. Risk Assessment: Do you want to hurt yourself or someone else? Patient reports no desire to harm self or others. 11:21 Method Of Arrival: EMS: [facility] ph 11:21 Acuity: SAMAN 3 ph Historical: - Allergies: 11:33 Adhesives; ph 11:33 Bactrim; ph 11:33 Demerol; ph 11:33 Latex, Natural Rubber; ph 11:33 Sulfa (Sulfonamide Antibiotics); ph 11:33 Vancomycin; ph - Home Meds: 11:33 labetalol Oral [Active]; Oxycodone HCl Oral [Active]; ph - PMHx: 11:33 Hypertension; spina-bifida; ph - PSHx: 11:33 Back Surgery; Shunt Placement; ph - Immunization history:: Adult Immunizations up to date. - Social history:: Smoking status: Patient denies any tobacco usage or history of. Screenin:33 Abuse screen: Denies threats or abuse. Denies injuries from another. Nutritional ph screening: No deficits noted. Tuberculosis screening: No symptoms or risk factors identified. Fall Risk No fall in past 12 months (0 pts). Secondary diagnosis (15 points) impaired mobility, IV access (20 points). Ambulatory Aid- None/Bed Rest/Nurse Assist (0 pts). Gait- Impaired (20 pts.). Mental Status- Oriented to own ability (0 pts). Total Aburto Fall Scale indicates High Risk Score (45 or more points). Fall prevention measures have been instituted. Side Rails Up X 2 Placed Close to Nursing Station Frequent Obs/Assessments Occuring As available patient and family educated on Fall Prevention Program and Strategies. Assessment: 11:36 General: Appears in no apparent distress. comfortable, well groomed, Behavior is calm, ph cooperative, appropriate for age, Reports chills for fever for 1-2 days. Pain: Denies pain. Neuro: Level of Consciousness is awake, alert, obeys commands, Oriented to person, place, time, situation. Cardiovascular: Capillary refill < 3 seconds in bilateral fingers Patient's skin is warm and dry. Respiratory: Airway is patent Respiratory effort is even, unlabored. GI: Abdomen is round non-distended, Reports nausea, vomiting, Patient currently denies abdominal pain, diarrhea. Derm: Skin is healthy with good turgor, Skin is pink, warm \T\ dry. Decubitus located on left hip(s) approximately 2.6 cm to 7.5 cm. Musculoskeletal: Circulation, motion, and sensation intact. Range of motion: limited in lower extremeties Hypertrophy noted in right leg and left leg. 12:30 Reassessment: Patient appears in no apparent distress at this time. Patient and/or ph family updated on plan of care and expected duration. Pain level reassessed. Patient is alert, oriented x 3, equal unlabored respirations, skin warm/dry/pink. 13:30 Reassessment: Patient appears in no apparent distress at this time. Patient and/or ph family updated on plan of care and expected duration. Pain level reassessed. Patient is alert, oriented x 3, equal unlabored respirations, skin warm/dry/pink. 14:30 Reassessment: Patient appears in no apparent distress at this time. Patient and/or ph family updated on plan of care and expected duration. Pain level reassessed. Patient is alert, oriented x 3, equal unlabored respirations, skin warm/dry/pink. 16:00 Reassessment: Patient appears in no apparent distress at this time. Patient and/or ph family updated on plan of care and expected duration. Pain level reassessed. Patient is alert, oriented x 3, equal unlabored respirations, skin warm/dry/pink. 17:35 Reassessment: Patient appears in no apparent distress at this time. Patient and/or ph family updated on plan of care and expected duration. Pain level reassessed. Patient is alert, oriented x 3, equal unlabored respirations, skin warm/dry/pink. Report called to Mitchell BRIZUELA. Vital Signs: 11:21 BP 129 / 83; Pulse 98; Resp 18; Temp 99.8; Pulse Ox 100% on R/A; Weight 34.02 kg; ph 11:22 BP 129 / 83; Pulse 100; Resp 16; Temp 99.8(O); Pulse Ox 100% on R/A; mh5 12:21 BP 130 / 91; Pulse 98; Resp 16; Temp 100.1(O); Pulse Ox 100% on R/A; mh5 14:59 BP 103 / 68; Pulse 101; Resp 16; Temp 99.8(O); Pulse Ox 99% on R/A; mh5 16:00 BP 120 / 84; Pulse 95; Resp 20; Pulse Ox 99% on R/A; ph 16:40 BP 128 / 83; Pulse 91; Resp 18; Temp 97.6(TE); Pulse Ox 100% on R/A; ph ED Course: 11:20 Patient arrived in ED. ph 11:21 Patient has correct armband on for positive identification. Bed in low position. Call [facility] light in reach. Side rails up X 1. Warm blanket given. Pulse ox on. NIBP on. 11:24 Moises Borrego PA is PHCP. [facility] 11:24 Joel Ariza MD is Attending Physician. [facility] 11:30 Triage completed. ph 11:34 Bernarda Mazariegos, CHATA is Primary Nurse. ph 11:34 Arm band placed on Patient placed in an exam room, on a stretcher. ph 11:45 First set of blood cultures drawn by nv, Flu and/or RSV swab sent to lab. 5 11:53 Blood Culture Adult (2) Sent. 5 11:53 Lactate Sent. 5 11:53 Procalcitonin Sent. 5 11:53 CMP Sent. 5 11:53 CBC with Diff Sent. 5 11:53 Inserted saline lock: 22 gauge in left antecubital area, using aseptic technique. Blood [facility] collected. 12:00 Straight cath inserted, using sterile technique, 16 Fr. Specimen obtained. suprapubic ph site healthy in appearance Returned clear yellow urine. Patient tolerated well. 12:05 Urine Culture Sent. ph 12:05 Urine Microscopic Only Sent. ph 12:07 Flu Sent. mh5 12:08 Blood Culture Adult (2) Sent. [facility] 12:20 Kathy Christiansen MD is Hospitalizing Provider. [facility] 17:35 No provider procedures requiring assistance completed. Patient admitted, IV remains in ph place. Administered Medications: 13:37 Drug: Zofran (Ondansetron) 4 mg Route: IVP; Site: left antecubital; ph 14:30 Follow up: Response: No adverse reaction; Nausea is decreased ph 13:40 Drug: morphine 4 mg Route: IVP; Site: left antecubital; ph 14:15 Follow up: Response: No adverse reaction; Pain is decreased; RASS: Alert and Calm (0) ph 13:41 Drug: Motrin Suspension 10 mg/kg Route: PO; ph 14:30 Follow up: Response: No adverse reaction; Temperature is decreased ph 14:16 Drug: Zosyn 3.375 grams Route: IVPB; Infused Over: 60 mins; Site: left antecubital; ph 15:20 Follow up: Response: No adverse reaction; IV Status: Completed infusion ph Outcome: 12:20 Decision to Hospitalize by Provider. [facility] 17:51 Patient left the ED. ph 17:51 Admitted to Med/surg accompanied by tech, via wheelchair, with chart. ph 17:51 Condition: stable 17:51 Instructed on the need for admit. Signatures: Moises Borrego PA PA jmm Hall, Patricia, RN RN Pamela Puente [facility]
--- NOTE | 2019-10-19 12:21 | EDPHYS ---
Physician Documentation [facility] Name: Shari Estrella Age: 29 yrs Sex: Female : 1990 Arrival Date: 10/19/2019 Time: 11:20 Bed 14 Private MD: KELTON Physician Joel Ariza HPI: 10/18 12:11 This 29 yrs old Female presents to ER via EMS with complaints of jmm Nausea/Vomiting, fever. 12:11 The patient presents to the emergency department with nausea, vomiting. Onset: The jmm symptoms/episode began/occurred this morning. Possible causes: unknown. The symptoms are aggravated by nothing. The symptoms are alleviated by nothing. This is a 29 year old female with a history of spina bifida, htn that presents to the ED with complaints of fever, vomiting beginning this morning. Patient states this is normally due to infection from chronic wound or UTI. Patient is not currently on abx. . Historical: - Allergies: 11:33 Adhesives; ph 11:33 Bactrim; ph 11:33 Demerol; ph 11:33 Latex, Natural Rubber; ph 11:33 Sulfa (Sulfonamide Antibiotics); ph 11:33 Vancomycin; ph - Home Meds: 11:33 labetalol Oral [Active]; Oxycodone HCl Oral [Active]; ph - PMHx: 11:33 Hypertension; spina-bifida; ph - PSHx: 11:33 Back Surgery; Shunt Placement; ph - Immunization history:: Adult Immunizations up to date. - Social history:: Smoking status: Patient denies any tobacco usage or history of. ROS: 12:11 Respiratory: Negative for shortness of breath, cough, wheezing, and pleuritic chest jmm pain. 12:11 Constitutional: Positive for fever. 12:11 Abdomen/GI: Positive for nausea and vomiting, vomiting. 12:11 Skin: Positive for erythema. 12:11 All other systems are negative. Exam: 12:11 Constitutional: This is a well developed, well nourished patient who is awake, alert, jmm and in no acute distress. Head/Face: atraumatic. Eyes: EOMI, no conjunctival erythema appreciated ENT: Moist Mucus Membranes Neck: Trachea midline, Supple Chest/axilla: Normal chest wall appearance and motion. Cardiovascular: Regular rate and rhythm. No edema appreciated Respiratory: Normal respirations, no respiratory distress appreciated Abdomen/GI: Non distended, soft 12:11 Skin: wound noted to the left buttocks with surrounding erythema. . 12:11 Neuro: Orientation: is normal, Mentation: is normal, Memory: is normal. Vital Signs: 11:21 BP 129 / 83; Pulse 98; Resp 18; Temp 99.8; Pulse Ox 100% on R/A; Weight 34.02 kg; ph 11:22 BP 129 / 83; Pulse 100; Resp 16; Temp 99.8(O); Pulse Ox 100% on R/A; mh5 12:21 BP 130 / 91; Pulse 98; Resp 16; Temp 100.1(O); Pulse Ox 100% on R/A; mh5 14:59 BP 103 / 68; Pulse 101; Resp 16; Temp 99.8(O); Pulse Ox 99% on R/A; mh5 16:00 BP 120 / 84; Pulse 95; Resp 20; Pulse Ox 99% on R/A; ph 16:40 BP 128 / 83; Pulse 91; Resp 18; Temp 97.6(TE); Pulse Ox 100% on R/A; ph MDM: 11:24 Patient medically screened. [facility] 12:17 Data reviewed: vital signs, nurses notes. Counseling: I had a detailed discussion with rosanna the patient and/or guardian regarding: the historical points, exam findings, and any diagnostic results supporting the discharge/admit diagnosis, lab results, the need for further work-up and treatment in the hospital. ED course: Clinical exam findings concerning for developing cellulitis. I attempted to contact Dr. Méndez for ID consult. Currently has not returned message. I discussed this with Dr. Christiansen whom accepted admission. . 10/18 11:29 Order name: CBC with Diff; Complete Time: 11:59 [facility] 10/18 11:29 Order name: CMP; Complete Time: 12:14 [facility] 10/18 11:29 Order name: Procalcitonin; Complete Time: 12:49 [facility] 10/18 11:29 Order name: Lactate; Complete Time: 12:14 [facility] 10/18 11:29 Order name: Urine Microscopic Only; Complete Time: 12:33 [facility] 10/18 11:29 Order name: Urine Culture [facility] 10/18 11:35 Order name: Blood Culture Adult (2) [facility] 10/18 12:03 Order name: Flu; Complete Time: 12:49 [facility] 10/18 12:04 Order name: Urine Dipstick--Ancillary (enter results); Complete Time: 12:14 lt 10/18 12:04 Order name: Urine --Ancillary (enter results); Complete Time: 12:14 lt 10/18 14:24 Order name: Basic Metabolic Panel [facility] 10/18 14:24 Order name: Basic Metabolic Panel [facility] 10/18 14:24 Order name: CBC with Automated Diff [facility] 10/18 14:24 Order name: CBC with Automated Diff [facility] 10/18 11:29 Order name: Urine Dipstick-Ancillary (obtain specimen); Complete Time: 12:04 [facility] 10/18 11:29 Order name: Saline Lock; Complete Time: 11:52 [facility] 10/18 14:23 Order name: CONS Pharmacy Consult [facility] 10/18 14:23 Order name: CONS Pharmacy Consult [facility] 10/18 14:24 Order name: CONS Pharmacy Consult [facility] 10/18 14:24 Order name: CONS Physician Consult [facility] 10/18 14:24 Order name: Regular EDMS Administered Medications: 13:37 Drug: Zofran (Ondansetron) 4 mg Route: IVP; Site: left antecubital; ph 14:30 Follow up: Response: No adverse reaction; Nausea is decreased ph 13:40 Drug: morphine 4 mg Route: IVP; Site: left antecubital; ph 14:15 Follow up: Response: No adverse reaction; Pain is decreased; RASS: Alert and Calm (0) ph 13:41 Drug: Motrin Suspension 10 mg/kg Route: PO; ph 14:30 Follow up: Response: No adverse reaction; Temperature is decreased ph 14:16 Drug: Zosyn 3.375 grams Route: IVPB; Infused Over: 60 mins; Site: left antecubital; ph 15:20 Follow up: Response: No adverse reaction; IV Status: Completed infusion ph Disposition: 10/19 10:36 Co-signature as Attending Physician, Joel FERRARA I agree with the assessment and ira plan of care. Disposition: 10/19/19 12:20 Hospitalization ordered by Kathy Christiansen for Inpatient Admission. Preliminary diagnosis are Cellulitis of buttock, Fever, unspecified. - Bed requested for Telemetry/MedSurg (Inpatient). - Status is Inpatient Admission. ph - Condition is Stable. - Problem is an acute exacerbation. - Symptoms are unchanged. Signatures: Dispatcher [employer] EDNia Vargas, RN RN Joel Villalta MD MD cha Mickail, Joel, PA PA Bernarda Cosby RN RN ph Botello, Elizabeth eb Corrections: (The following items were deleted from the chart) 10/18 13:31 12:20 Hospitalization Ordered by Kathy Christiansen MD for Inpatient Admission. eb Preliminary diagnosis is Cellulitis of buttock; Fever, unspecified. Bed requested for Telemetry/MedSurg (Inpatient). Status is Inpatient Admission. Condition is Stable. Problem is an acute exacerbation. Symptoms are unchanged. patrice 15:47 13:31 10/19/2019 12:20 Hospitalization Ordered by Kathy Christiansen MD for Inpatient dw Admission. Preliminary diagnosis is Cellulitis of buttock; Fever, unspecified. Bed requested for Telemetry/MedSurg (Inpatient). Status is Inpatient Admission. Condition is Stable. Problem is an acute exacerbation. Symptoms are unchanged. ioana 17:51 15:47 10/19/2019 12:20 Hospitalization Ordered by Kathy Christiansen MD for Inpatient ph Admission. Preliminary diagnosis is Cellulitis of buttock; Fever, unspecified. Bed requested for Telemetry/MedSurg (Inpatient). Status is Inpatient Admission. Condition is Stable. Problem is an acute exacerbation. Symptoms are unchanged. dw
[2019-10-19 12:25] LABS: Urine Bacteria <20 /HPF (<20); Urine Culture Reflex Order NOT NEEDED; Urine RBC <5 /HPF (NONE SEEN)
[2019-10-19] MEDS ORDERED: PIPER/TAZO/NS 3.375gm 3.375 GM/100 ML BAG ONE (12:44)
[2019-10-19] MEDS ORDERED: MORPHINE 4 MG/ML SYR ONE (13:35)
[2019-10-19] MEDS ORDERED: ONDANSETRON 4 MG/2 ML VIAL ONE ×2 (13:35→17:06)
[2019-10-19] MEDS ORDERED: IBUPROFEN 200 MG TAB PO ONE (13:36)
[2019-10-19] MEDS ORDERED: ONDANSETRON 4 MG/2 ML VIAL IV PRN (14:18)
[2019-10-19] MEDS ORDERED: ACETAMINOPHEN 500 MG TAB PO PRN (14:18)
[2019-10-19] MEDS ORDERED: VANCOMYCIN/NS 1 gm 1 GM/250 ML BAG IVPB ONE (15:00)
[2019-10-19] MEDS ORDERED: MORPHINE 2 MG/ML SYR ONE (17:06)
[2019-10-19] MEDS: MORPHINE 2 MG/ML SYR IV PRN ×2 (17:14→21:41)
[2019-10-19] MEDS ORDERED: PIPER/TAZO/NS 3.375gm 3.375 GM/100 ML BAG IVPB SCH (18:00)
[2019-10-19 18:03] VITALS: BMI 40.6
[2019-10-19] MEDS: NA CHLORIDE 0.9% 1,000 ML IV SCH (18:16)
[2019-10-19] MEDS ORDERED: HOME MED 1 EA UNK (Labetalol Hcl [Trandate] 200 MG) PO SCH (21:00)
[2019-10-19 21:39] VITALS: O2SAT 99
[2019-10-19] MEDS: LABETALOL HCL 100 MG TAB PO SCH (21:40)
[2019-10-19] MEDS ORDERED: TEMAZEPAM 15 MG CAP PO PRN (21:54)
[2019-10-20] MEDS ORDERED: PIPER/TAZO/NS 3.375gm 3.375 GM/100 ML BAG IVPB SCH (01:00)
[2019-10-20] MEDS: PIPER/TAZO/NS 2.25gm 2.25 GM/50 ML BAG IVPB SCH ×2 (01:00→11:32)
--- NOTE | 2019-10-20 01:36 | HP ---
Date of Admission: 10/19/2019 Reason For Admission: Nausea, vomiting, and fever. History Of Present Illness: This is a 29-year-old female, with history of spinal bifida, recurrent U TI and left gluteal decubitus ulcer, who presents to the emergency room with complaint of 3 days of i ntermittent fever with temperature up to 100.1, as well as intermittent nausea, vomiting. The patien neena was hospitalized multiple times in the first 3 months of this year. She likely was in the hospital on October 04 and discharged on October 07 with UTI and found to have an ESBL and she was sent home on c efdinir and doxycycline after seen by Dr. Ibarra, but again patient will need to have fever at home a nd she presented to emergency room for further evaluation. In the ER, the patient did not have any f ever and her temperature max was 99.8. Labs in the ER also showed normal CBC, but ER would not to ad david her given her recurrent history of infection. UA was negative as well. The patient continued to complaint of skin breakdown at the site of her previous left gluteal abscess and ER physician was wo rried about possible osteomyelitis. MRI was not possible on the weekend. Currently, patient is sitt ing in bed. She looks comfortable. She just received pain medication for her back pain which is chr onic. Review of Systems: Otherwise as below. Past Medical History: Significant for history decubital ulcer on left buttock, spina bifida, MRSA, s coliosis, hypertension, acid reflux, osteomyelitis, hypertension. Past Surgical History: Significant for multiple back surgeries, right great toe amputation, bowel moreira rgery, suprapubic stoma, [employer] shunt. Social History: She is . She has 1 daughter. She does not drink, smoke, or use any drugs. She does not work. Family History: Father and mother both alive and they have diabetes, hypertension, hyperlipidemia. Allergies: TO ADHESIVE, BACTRIM, DEMEROL, LATEX, ZOFRAN, VANCOMYCIN. Medications: Medication list is not available at the time of admission except for labetalol and oxyc odone. Review of Systems: Patient has fever, chills. No night sweats. No dizziness, lightheaded, headache, blurred vision. D oes not have any shortness of breath, cough, sputum. No sore throat. No chest pain, palpitations, P ND, orthopnea, dyspnea on exertion or lower extremity edema. She does have nausea and vomiting. The re is no abdominal pain or change in bowel movement. She has chronic back pain. She has not had any dysuria, frequency, urgency, hematuria. There is no issue of depression, anxiety, seizure or stroke . Physical Examination: Vital Signs: Currently, blood pressure is 129/83, respiratory rate 16, pulse 100, temperature 99.8, saturating 100% on room air. General: Patient is alert and oriented x3. Does not look in any distress. HEENT: Atraumatic, normocephalic. PERRLA. Oral mucosa is moist. Neck: Supple. No JVD. No bruits. Chest: Clear to auscultation. Good air entry. Heart: Regular rate and rhythm. S1, S2 normal. No gallop or murmur. Abdomen: Soft, nontender with no hepatosplenomegaly. Positive bowel sounds. Extremities: No clubbing, no cyanosis or edema. Left buttock with an open wound with slight white d ischarge. Neurologic: Deferred except for a normal cranial nerve exam. Laboratory Data: Today in the ER showed CBC within normal. Chemistry was normal except for chloride 110, creatinine of 0.42, glucose 113, AST of 13, globulin of 3.8. UA was negative except for white blood cells and epithelial cells. There was no nitrite or leukocyte esterase. Assessment And Plan: This is a 29-year-old female with history of multiple medical problems with rec urrent admission to the hospital in the past 3 months for recurrent urinary tract infections and left gluteal abscess, presented today with fever, nausea, vomiting. IMPRESSION: 1.Stage II decubitus ulcer of the left buttocks with open wound. We will proceed with IV antibiotic with Zosyn and vancomycin, broad spectrum. We will consult ID with Dr. Ibarra. Given recurrent ref ractory infection, we will hold off ordering MRI until Dr. Ibarra evaluate the patient and see if alejandro t is actually indicated, the patient does not have any fever nor leukocytosis. We will check her ESR and CRP, which normally high with patient with osteomyelitis. Blood culture, UA, urine culture, all done in the emergency room and they are still pending. There is no evidence of urinary tract infect ion so far. 2.Nausea, vomiting, etiology? We will start patient on some fluids for hydration and symptomatic tr eatment for the nausea and vomiting. 3.Hypertension. Continue patient on labetalol at her home dose. 4.Deep vein thrombosis prophylaxis, on Lovenox. 5.Spina bifida with pressure ulcer. We will obtain wound care consult in a.m. ALEXIS/TENZIN Voice ID: [id number]
[2019-10-20] MEDS: MORPHINE 2 MG/ML SYR IV PRN ×4 (01:55→14:59)
[2019-10-20] MEDS: NA CHLORIDE 0.9% 1,000 ML IV SCH ×2 (02:19→14:55)
[2019-10-20] MEDS ORDERED: VANCOMYCIN/NS 1 gm 1 GM/250 ML BAG IVPB SCH (03:00)
[2019-10-20 05:27] LABS: Absolute Lymphocytes (CBC) 2.9 K/uL (0.7-4.9); Basophils % 0.6 % (0-1.3); Hematocrit 32.7 % (36.0-45.0); Lymphocytes % 43.2 % (15.3-44.8); MPV 8.8 fL (7.6-11.3); RBC Red Blood Cell Count 3.47 M/uL (3.86-4.86)
[2019-10-20 05:42] LABS: BUN Blood Urea Nitrogen 7 mg/dL (7-18); Bicarbonate 22 mmol/L (21-32); Glucose Level 93 mg/dL (74-106); Potassium 3.4 mmol/L (3.5-5.1); Sodium Level 145 mmol/L (136-145)
[2019-10-20] MEDS ORDERED: PANTOPRAZOLE 40MG TABLET PO SCH (07:30)
[2019-10-20] MEDS: LABETALOL HCL 100 MG TAB PO SCH (08:52)
[2019-10-20] MEDS ORDERED: HOME MED 1 EA UNK (Omeprazole [Omeprazole] 20 MG) PO SCH (09:00)
[2019-10-20] MEDS ORDERED: Oxycodone HCl/Acetaminophen 1 TAB TAB PO PRN (10:52)
[2019-10-20 12:38] VITALS: BP 135/71; TEMP 98.8
--- NOTE | 2019-10-20 14:34 | P.DS ---
Admission Date: 10/19/19 Discharge Date: 10/20/19 Primary Care Provider: Fred Reason for Admission: Fever Consultations: Dr. Ibarra Procedures: none - Problems (1) Anemia Onset Date: 07/11/17 Status: Chronic Qualifiers: Anemia type: iron deficiency Iron deficiency anemia type: unspecified iron deficiency Qualified Code(s): D50.9 - Iron deficiency anemia, unspecified (2) Dehydration Onset Date: 07/11/17 Status: Acute (3) Hypokalemia Status: Acute (4) Stage II pressure ulcer of left buttock Status: Chronic (5) Spina bifida Onset Date: 06/01/17 Status: Chronic Qualifiers: Spinal region: thoracolumbar Presence of hydrocephalus: unspecified hydrocephalus presence Qualified Code(s): Q05.6 - Thoracic spina bifida without hydrocephalus Brief History of Present Illness: This is a 29-year-old female patient with a history of spina bifida and chronic decubitus ulcers along with chronic UTIs that was seen in the emergency room and was admitted for fever and suspicion of infected decubitus ulcer and or recurrent urinary tract infection. Patient initially was afebrile and without acute findings on initial labs. Dr. Ibarra was consulted upon admission. Hospital Course: Patient has remained stable while in the care of hospitalist team. Patient has been on fluids and potassium replacement along with antibiotics prophylactically. Initial blood cultures have shown no growth within 24 hr. Still pending wound culture at this time. Patient continues to have no increase in white blood cell count. Mildly anemic but chronic for patient stable at this time. Had mild hypokalemia which was replaced. Patient has had only mild pain to wound site. No discharge noted, no foul smell, no erythema and or cellulitis surrounding decubitus ulcer. Patient's urine was negative for WBC, blood, bacteria. Consulted Dr. Ibarra who agrees that at this time patient does not need a pelvic MRI to rule out osteomyelitis. Patient is safe to be discharged home at this time. This has been discussed with the patient and is comfortable with this decision. Patient will continue home medications as prescribed and will follow up with Dr. Phillips on an outpatient basis. Knows to come back if she were to run fever or have worsening of condition. <Dick Bonilla - Last Filed: 10/20/19 14:16> Admission Date: 10/19/19 Discharge Date: 10/20/19 Consultations: Infectious disease-Dr. Ibarra Procedures: Medical problem list: Stage II sacral decubitus ulcer Spina bifida Anemia of chronic disease with iron deficiency Hypertension GERD Chronic pain Hospital Course: Case reviewed and discussed with DEJAN Weiner. Case also discuss with infectious disease. Infectious Disease recommends no need for peptic MRI to rule out osteomyelitis. Wound does not appear significantly abnormal at this time. Patient will follow up with wound care center or with infectious disease. Continue with oral antibiotics-Augmentin twice daily for 10 days. Patient with history of chronic pain, hypertension, GERD, and anemia of chronic disease with iron deficiency. At discharge patient will continue her medications. Recommend follow up with her PCP to further monitor and adjust. Agree with plan for discharge. <David Reynolds - Last Filed: 10/20/19 17:08> Disposition: [facility] HOME/HOME HEALTH CARE Discharge Condition: GOOD Vital Signs/Physical Exam: Temp Pulse Resp BP Pulse Ox 98.8 F 86 16 135/71 100 10/20/19 12:00 10/20/19 12:00 10/20/19 12:33 10/20/19 12:00 10/20/19 12:33 General: Alert, In no apparent distress, Oriented x3 HEENT: PERRLA, Mucous membr. moist/pink, EOMI Neck: Supple, JVD not distended, No Thyromegaly Respiratory: Clear to auscultation bilaterally, Normal air movement Cardiovascular: No edema, Normal pulses, Regular rate/rhythm, Normal S1 S2, No gallops, No rubs, No murmurs Capillary refill: <2 Seconds Gastrointestinal: Normal bowel sounds, Soft and benign, Non-distended, No ascites, No tenderness, No masses, No rebound, No guarding Musculoskeletal: No clubbing, No swelling, No contractures, No erythema, No tenderness, No warmth Integumentary: No rashes, No erythema, No warmth, Other (Patient was stage II decubitus ulcer of the left buttock No active drainage or erythema.) Lymphatics: No axilla or inguinal lymphadenopathy Laboratory Data at Discharge: WBC 6.8 K/uL (4.3-10.9) 10/20/19 05:02 Hgb 10.9 g/dL (12.0-15.0) L 10/20/19 05:02 Hct 32.7 % (36.0-45.0) L 10/20/19 05:02 Plt Count 222 K/uL (152-406) D 10/20/19 05:02 Sodium 145 mmol/L (136-145) 10/20/19 05:02 Potassium 3.4 mmol/L (3.5-5.1) L 10/20/19 05:02 BUN 7 mg/dL (7-18) 10/20/19 05:02 Creatinine 0.31 mg/dL (0.55-1.3) L 10/20/19 05:02 Glucose 93 mg/dL (74-106) 10/20/19 05:02 Total Bilirubin 0.5 mg/dL (0.2-1.0) 10/19/19 11:45 AST 13 U/L (15-37) L 10/19/19 11:45 ALT 18 U/L (12-78) 10/19/19 11:45 Alkaline Phosphatase 110 U/L (45-117) 10/19/19 11:45 <Dick Bonilla - Last Filed: 10/20/19 14:16> Vital Signs/Physical Exam: Temp Pulse Resp BP Pulse Ox 98.8 F 86 16 135/71 100 10/20/19 12:00 10/20/19 12:00 10/20/19 14:59 10/20/19 12:00 10/20/19 14:59 Laboratory Data at Discharge: WBC 6.8 K/uL (4.3-10.9) 10/20/19 05:02 Hgb 10.9 g/dL (12.0-15.0) L 10/20/19 05:02 Hct 32.7 % (36.0-45.0) L 10/20/19 05:02 Plt Count 222 K/uL (152-406) D 10/20/19 05:02 Sodium 145 mmol/L (136-145) 10/20/19 05:02 Potassium 3.4 mmol/L (3.5-5.1) L 10/20/19 05:02 BUN 7 mg/dL (7-18) 10/20/19 05:02 Creatinine 0.31 mg/dL (0.55-1.3) L 10/20/19 05:02 Glucose 93 mg/dL (74-106) 10/20/19 05:02 Total Bilirubin 0.5 mg/dL (0.2-1.0) 10/19/19 11:45 AST 13 U/L (15-37) L 10/19/19 11:45 ALT 18 U/L (12-78) 10/19/19 11:45 Alkaline Phosphatase 110 U/L (45-117) 10/19/19 11:45 <David Reynolds - Last Filed: 10/20/19 17:08> Patient Discharge Instructions: Patient needs to continue home medication. Patient will be placed on Augmentin for 10 days. Patient needs to follow up with Dr. Ibarra. Patient needs to continue to orally hydrate. Patient will continue home health. If worse patient needs to come back to the emergency room for further evaluation Diet: Regular Activity: Fall precautions Time spent managing pt's care (in minutes): 45 <Dick Bonilla - Last Filed: 10/20/19 14:16> <David Reynolds - Last Filed: 10/20/19 17:08> Home Medications: Labetalol HCl [Trandate] 200 mg PO BID 08/17/19 Omeprazole 20 mg PO DAILY 08/17/19 Oxycodone HCl/Acetaminophen [Oxycodone-Acetaminophen 10-325] 1 tab PO Q4HP PRN 08/17/19 Amoxicillin/Potassium Clav [Augmentin 875-125 Tablet] 1 each PO BID 10 Days tablet 10/20/19 New Medications: Amoxicillin/Potassium Clav [Augmentin 875-125 Tablet] 1 each PO BID 10 Days tablet Followup: Abdulkadir Ibarra MD [ACTIVE - CAN ADMIT] -
[2019-10-20] MEDS ORDERED: VANCOMYCIN 500 MG in NA CHLORIDE 0.9% 100 ML IVPB SCH (15:00)
== END 2019-10-20 16:31 | disposition home health service (06) ==
LOC: ER 11:16 → ERHOLD 14:13 → INTOOBSV 14:13 → 4TH 17:21
PROVIDERS: ADMIT Internal Medicine; ATTEND Family Medicine
DX: L89.322 Pressure ulcer of left buttock, stage 2 (principal); L03.317 Cellulitis of buttock; R11.2 Nausea with vomiting, unspecified; I10 Essential (primary) hypertension; Q05.6 Thoracic spina bifida without hydrocephalus; D50.9 Iron deficiency anemia, unspecified; E86.0 Dehydration; E87.6 Hypokalemia; Z87.440 Personal history of urinary (tract) infections; K21.9 Gastro-esophageal reflux disease without esophagitis; G89.29 Other chronic pain; Z79.899 Other long term (current) drug therapy
CPT/HCPCS: 96365; 87040 ×2; 87088; 87070; 85025 ×2; 87086; 80048; 36415; 87205; 81025; 83605; 85652; 80053; 84145; 86140; 87804 ×2; 51702; 96375; 99285; J2543; J2270 ×6; J3370 ×2; J7030 ×3; J2405 ×2; G0378 ×3; 81003; 81015

== ENCOUNTER 2020-02-16 19:17 | Observation (INO) | payer OTHER ==
--- OUTSIDE RECORDS SUMMARY | 2020-02-16 19:19 | XMS REPORT | Continuity of Care Document ---
:1990 Author Organization [facility] t Address [address] [place] [address] Care Team Providers Name Role Phone Doctor Unassigned, Name Attending Clinician Unavailable Samanta Smallwood MD Attending Clinician Te Vigil MD Attending Clinician Jeff Meraz MD, Kermit Davila Attending Clinician + Problems This patient has no known problems. Allergies, Adverse Reactions, Alerts This patient has no known allergies or adverse reactions. Social History Social Habit Start Date Stop Date Quantity Comments Source Sex Assigned At [facility] Medications This patient has no known medications. Procedures This patient has no known procedures. Plan of Care Planned Activity Planned Date Details Comments Source Future Scheduled 2019-04-06 INFLUENZA VACCINE [facility] 00:00:00 (#1) [code = [facility] INFLUENZA VACCINE (#1)] Encounters Start End Encounter Admission Attending Care Care Encounter Source Date/Time Date/Time Type Type Clinicians Facility Department ID 2020-01-05 2020-01-05 Orders Doctor NATALI [id number] 00:00:00 00:00:00 Only UnassignedJESSICA [id number] [place] [facility] [id number] [id number] 2019-12-18 2019-12-18 Telephone GINNA Smallwood [id number] 00:00:00 00:00:00 Wondiful A [place] [id number] [place] [id number] Professio [phone] [address] 2019-12-16 2019-12-16 Telephone GINNA Smallwood [id number] 00:00:00 00:00:00 Wondiful A [place] [id number] [place] [id number] Professio [phone] [address] 2019-12-09 2019-12-09 Orders Doctor NATALI [id number] [id number] 00:00:00 00:00:00 Only Unassigned, JESSICA [id number] [facility] [id number] [id number] 2019-11-24 2019-11-24 Telephone Cl [facility] [id number] 00:00:00 00:00:00 Wondiful A [place] [id number] [place] [id number] Professio [phone] [address] 2019-11-24 2019-11-24 Orders Doctor NATALI 1.2.840.114 [id number] 00:00:00 00:00:00 Only Unassigned, JESSICA [id number] [facility] [phone] [id number] 2019-11-07 2019-11-07 Orders Doctor NATALI 1.2.840.114 [id number] 00:00:00 00:00:00 Only Unassigned, JESSICA [id number] [facility] [id number] [id number] 2019-11-05 2019-11-05 Telephone Cl [facility] 1.2.840.114 [id number] 00:00:00 00:00:00 [place]ondiful A [place] [id number] [place] [id number] Professio [phone] [address] 2019-10-30 2019-10-30 Telephone Cl [facility] 1.2.840.114 [id number] 00:00:00 00:00:00 [facility] [id number] [place] [id number] Professio [phone] [place] [address] [address] 2019-10-30 2019-10-30 Orders Doctor NATALI 1.2.840.114 [id number] 00:00:00 00:00:00 Only Unassigned, JESSICA [id number] [facility] [id number] [id number] 2019-10-22 2019-10-22 Telephone [facility] 1.2.840.114 [id number] 00:00:00 00:00:00 [facility] [id number] [place] [id number] [facility] [phone] [place] [address] [address] 2019-10-20 2019-10-20 Telephone [facility] 1.2.840.114 [id number] 00:00:00 00:00:00 [facility] [id number] [place] [id number] [facility] [phone] [place] [address] [address] 2019-10-15 2019-10-15 Telephone [facility] 1.2.840.114 [id number] 00:00:00 00:00:00 [facility] [id number] [place] [id number] [facility] [phone] [place] [address] [address] 2019-10-08 2019-10-08 Telephone [facility] 1.2.840.114 [id number] 00:00:00 00:00:00 [facility] [id number] [place] [id number] [facility] [phone] [place] [address] [address] 2019-08-29 2019-08-29 Office CASPER Vigil 1.2.840.114 [id number] 13:02:13 13:12:13 Visit Roberto AMBULATOR [id number] [facility] [place] [id number] [phone] 300 2019-04-29 2019-04-29 Office Jeff SHIRLEY [id number] 10:53:12 12:18:36 Visit Kt, AMBULATOR [id number] Rasheed Leon [id number] Dav[place] [phone] 800 Results This patient has no known results.
--- OUTSIDE RECORDS SUMMARY | 2020-02-16 19:19 | XMS REPORT | Clinical Summary ---
:1990 Author Organization [facility] Address [address] [place] [address] Care Team Providers Name Role Phone Unavailable Primary Care Provider Unavailable Allergies Not on File Medications Not on file Active Problems Not on file Social History Tobacco Use Types Packs/Day Years Used Date Never Assessed Sex Assigned at Date Recorded Not on file Job Start Date Occupation Industry Not on file Not on file Not on file Travel History Travel Start Travel End No recent travel history available. Last Filed Vital Signs Not on file Plan of Treatment Health Maintenance Due Date Last Done Comments INFLUENZA VACCINE (#1) 2019 Results Not on fileafter 02/15/2019 Insurance Payer Benefit Plan / Subscriber ID Type Phone Address Group MEDICAID - MEDICAID [facility] COMM STAR xxxxxxxxx Medicaid Contracted MGD CARE PLAN AET[employer] - MGD CARE AETNA HMO POS QPOS xxxxxxxxx HMO/POS
--- OUTSIDE RECORDS SUMMARY | 2020-02-16 19:19 | XMS REPORT | Summary of Care ---
:1990 Author Organization [facility] Address [address] [place] [address] Care Team Providers Name Role Phone Samanta Smallwood MD Primary Care Provider Samanta Waddell Insurance Hmo Reason for Visit Reason Comments Assessment Encounter Details Date Type Department Care Team Description 11/24/2019 Telephone [facility] Pediatric and Shirley Ac MD Assessment Adult Primary Care- [address] [place] [address] [address] [facility] , [address] [place] [address] Allergies Active Allergy Reactions Severity Noted Date Comments Latex Rash, Nausea and/or High 02/25/2011 Vomiting Sulfa (Sulfonamide Antibiotics) Rash 7 Sulfamethoxazole (Bulk) Hives, Nausea and/or 1 Vomiting, Rash Tegaderm Dressing Hives 01/16/2019 Vancomycin Itching, Rash 12/28/2018 documented as of this encounter (statuses as of 11/24/2019) Medications Medication Sig Dispensed Refills Start Date [...] as of this encounter (statuses as of 11/24/2019) Active Problems Problem Noted Date Pressure injury of left buttock, stage 4 07/01/[address] 03/25/2019 Bicornuate uterus 09/23/2018 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 Spicer at [facility] as a ch Scoliosis 05/29/2018 Rh negative state in antepartum period 01/21/2018 Overview: Rhogam at 28 weeks Rubella non-immune status, antepartum 01/21/2018 Overview: Address pp History of miscarriage 01/18/2018 Spina bifida, unspecified hydrocephalus presence, unsp ecified spinal 11/16/2016 region Wheelchair bound 11/16/2016 documented as of this encounter (statuses as of 11/24/2019) Resolved Problems Problem Noted Date Resolved Date 09/22/2018 07/01/2019 Overview: ELHAM 04/23/19, Bicornuate uterus, High ris k due to patient has spina bifida/wheelchair-bound and HTN Supervision of high risk , antepartum 09/20/2018 07/25/2019 Tibia/fibula fracture, left, closed, initial encounter 05/2707/25/2019 Abnormal maternal glucose tolerance, antepartum 01/21/2018 05/29/2018 Overview: Passed 3hr UTI in 01/21/2018 05/29/2018 Overview: YOKO in 3/4 weeks Supervision of high-risk 01/18/201805/29 Nausea and vomiting during 01/18/2018 Depo-Provera contraceptive status 11/16/2016 06/15/ 2018 Hypertension in 11/16/2016 05/29/2018 Urinary incontinence, unspecified type 11/16/2016 1 documented as of this encounter (statuses as of 11/24/2019) Immunizations Name Administration Dates Next Due HPV9 [...] Td) PNEUMOCOCCAL 0-64 YEARS Aged Out No longe r eligible based COMBINED SERIES on patient's age to complete this to pic documented as of this encounter Results Not on filedocumented in this encounter Additional Health Concerns Infection Noted Time Resolved Time Contact - ESBL 02/15/2017 10:56 AM CDT documented as of this encounter Insurance Payer Benefit Plan / Subscriber ID Effective Dates Phone Addre ss Type Group AETNA AETNA HMO [id number] 2018-Present O [facility] [place] xxxxxxxxx 2017-Present Medicaid COMM PLAN - PLUS MANAGED MEDICAID [facility] TOTAL VISION [facility] TOTAL [id number] 2016-Present [employer] documented as of this encounter Advance Directives Name Relationship Healthcare Agent Communication Relationship Isabel Estrella Mother Primary healthcare agent [email or web address]
--- OUTSIDE RECORDS SUMMARY | 2020-02-16 19:20 | XMS REPORT | Summary of Care ---
:1990 Author Organization [facility] Address [address] [place] [address] Care Team Providers Name Role Phone Samanta Smallwood MD Primary Care Provider Samanta Waddell Insurance Hmo Encounter Details Date Type Department Care Team Description 12/09/2019 Orders Only [facility] Doctor Unassigned, No 301 [facility] Name [place] [phone] [place] [phone] Allergies Active Allergy Reactions Severity Noted Date Comments Latex Rash, Nausea and/or High 02/25/2011 Vomiting Sulfa (Sulfonamide Antibiotics) Rash 7 Sulfamethoxazole (Bulk) Hives, Nausea and/or 1 Vomiting, Rash Tegaderm Dressing Hives 01/16/2019 Vancomycin Itching, Rash 12/28/2018 documented as of this encounter (statuses as of 12/16/2019) Medications Medication Sig Dispensed Refills Start Date [...] as of this encounter (statuses as of 12/16/2019) Active Problems Problem Noted Date Pressure injury of left buttock, stage 4 07/01/[address] 03/25/2019 Bicornuate uterus 09/23/2018 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 Spicer at [facility] as a ch Scoliosis 05/29/2018 Rh negative state in antepartum period 01/21/2018 Overview: Rhogam at 28 weeks Rubella non-immune status, antepartum 01/21/2018 Overview: Address pp History of miscarriage 01/18/2018 Spina bifida, unspecified hydrocephalus presence, unsp ecified spinal 11/16/2016 region Wheelchair bound 11/16/2016 documented as of this encounter (statuses as of 12/16/2019) Resolved Problems Problem Noted Date Resolved Date 09/22/2018 07/01/2019 Overview: ELHAM 04/23/19, Bicornuate uterus, High ris k due to patient has spina bifida/wheelchair-bound and HTN Supervision of high risk , antepartum 09/20/2018 07/25/2019 Tibia/fibula fracture, left, closed, initial encounter 05/2707/25/2019 Abnormal maternal glucose tolerance, antepartum 01/21/2018 05/29/2018 Overview: Passed 3hr UTI in 01/21/2018 05/29/2018 Overview: YKOO in 3/4 weeks Supervision of high-risk 01/18/201805/29 Nausea and vomiting during 01/18/2018 Depo-Provera contraceptive status 11/16/20162017 Hypertension in 11/16/2016 05/29/2018 Urinary incontinence, unspecified type 11/16/2016 1 documented as of this encounter (statuses as of 12/16/2019) Immunizations Name Administration Dates Next Due HPV9 [...] Health Maintenance Due Date Last Done Comments PAP SMEAR 02/16/2020 02/15/2017, 01/16/2017 INFLUENZA VACCINE (Season 04/06/2020 Ended) DTaP,Tdap,and Td Vaccines (2 01/30/2029 01/30/2019 - Td) PNEUMOCOCCAL 0-64 YEARS Aged Out No longe r eligible based COMBINED SERIES on patient's age to complete this to [facility] documented as of this encounter Procedures Procedure Name Priority Date/Time Associated Diagnosis Comme nts HOME HEALTH - OTHER Routine 12/09/2019 12:01 AM CDT documented in this encounter Results Not on filedocumented in this encounter Additional Health Concerns Infection Onset Date Last Indicated Resolved Time Contact - ESBL 02/15/2017 02/15/2017 documented as of this encounter Insurance Payer Benefit Plan / Subscriber ID Effective Dates Phone Addre ss Type Group AETNA AETNA HMO [id number] 2018-Present HM [facility] [place] xxxxxxxxx 2017-Present Medicaid COMM PLAN - PLUS MANAGED MEDICAID [facility] TOTAL VISION [facility] TOTAL [id number] 2016-Present [employer] documented as of this encounter Advance Directives Name Relationship Healthcare Agent Communication Relationship Isabel Estrella Mother Primary healthcare agent [email or web address]
--- OUTSIDE RECORDS SUMMARY | 2020-02-16 19:20 | XMS REPORT | Summary of Care ---
:1990 Author Organization [facility] Address [address] [place] [address] Care Team Providers Name Role Phone Samanta Smallwood MD Primary Care Provider Samanta Waddell Insurance Hmo Encounter Details Date Type Department Care Team Description 11/24/2019 Orders Only [facility] Doctor Unassigned, No 301 [facility] Name [place] [phone] [address] [place], [place] [phone] Allergies Active Allergy Reactions Severity Noted Date Comments Latex Rash, Nausea and/or High 02/25/2011 Vomiting Sulfa (Sulfonamide Antibiotics) Rash 7 Sulfamethoxazole (Bulk) Hives, Nausea and/or 1 Vomiting, Rash Tegaderm Dressing Hives 01/16/2019 Vancomycin Itching, Rash 12/28/2018 documented as of this encounter (statuses as of 12/05/2019) Medications Medication Sig Dispensed Refills Start Date [...] as of this encounter (statuses as of 12/05/2019) Active Problems Problem Noted Date Pressure injury of left buttock, stage 4 07/01/[address] 03/25/2019 Bicornuate uterus 09/23/2018 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 Pituitary tumor 07/12/2018 Elevated alkaline phosphatase level 06/07/2018 Hyperprolactinemia 06/07/2018 Persistent headaches 06/07/2018 Iron deficiency anemia, unspecified iron deficiency an emia type 06/07/2018 Cholelithiasis 06/03/2018 Recurrent UTI 05/29/2018 Irregular menses 05/29/2018 Anemia, unspecified type 05/29/2018 Poor nutrition 05/29/2018 S/P ELECTROLYSIS NEEDLE OPERATOR shunt 05/29/2018 Self-catheterizes urinary bladder 05/29/2018 [...] as of this encounter (statuses as of 12/05/2019) Resolved Problems Problem Noted Date Resolved Date [...] as of this encounter (statuses as of 12/05/2019) Immunizations Name Administration Dates Next Due HPV9 [...] on patient's age to complete this to [facility] documented as of this encounter Procedures Procedure Name Priority Date/Time Associated Diagnosis Comme nts INSURANCE CORRESPONDENCE Routine 11/24/2019 12:01 AM CDT documented in this encounter Results Not on filedocumented in this encounter Additional Health Concerns Infection Noted Time Resolved Time Contact - ESBL 02/15/2017 10:56 AM CDT documented as of this encounter Insurance Payer Benefit Plan / Subscriber ID Effective Dates Phone Addre ss Type Group AETNA AETNA HMO [id number] 2018-Present HM [facility] [place] xxxxxxxxx 2017-Present Medicaid COMM PLAN - PLUS MANAGED MEDICAID [facility] TOTAL VISION [facility] TOTAL [id number] 2016-Present [employer] documented as of this encounter Advance Directives Name Relationship Healthcare Agent Communication Relationship Isabel Estrella Mother Primary healthcare agent [email or web address]
--- OUTSIDE RECORDS SUMMARY | 2020-02-16 19:20 | XMS REPORT | Summary of Care ---
:[address] [facility] Address [address] [place] [address] Care Team Providers Name Role Phone Samanta Smallwood MD Primary Care Provider Samanta Waddell Insurance Hmo Reason for Visit Reason Comments Assessment Encounter Details Date Type Department Care Team Description 12/18/2019 Telephone [facility] Pediatric and Shirley Ac MD Assessment Adult Primary Care- [address] [place] [address] 146 [facility] , [address] [place] [address] Allergies Active Allergy Reactions Severity Noted Date Comments Latex Rash, Nausea and/or High 02/25/2011 Vomiting Sulfa (Sulfonamide Antibiotics) Rash 7 Sulfamethoxazole (Bulk) Hives, Nausea and/or 1 Vomiting, Rash Tegaderm Dressing Hives 01/16/2019 Vancomycin Itching, Rash 12/28/2018 documented as of this encounter (statuses as of 12/18/2019) Medications Medication Sig Dispensed Refills Start Date [...] as of this encounter (statuses as of 12/18/2019) Active Problems Problem Noted Date Pressure injury of left buttock, stage 4 07/01/[address] 03/25/2019 Bicornuate uterus 09/23/2018 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 Spicer at [facility] as a ch Scoliosis 05/29/2018 Rh negative state in antepartum period 01/21/2018 Overview: Rhogam at 28 weeks Rubella non-immune status, antepartum 01/21/2018 Overview: Address pp History of miscarriage 01/18/2018 Spina bifida, unspecified hydrocephalus presence, unsp ecified spinal 11/16/2016 region Wheelchair bound 11/16/2016 documented as of this encounter (statuses as of 12/18/2019) Resolved Problems Problem Noted Date Resolved Date [...] as of this encounter (statuses as of 12/18/2019) Immunizations Name Administration Dates Next Due HPV9 [...] Addre ss Type Group AETNA AETNA HMO [id number] 2018-Present [facility] [place] xxxxxxxxx 2017-Present Medicaid COMM PLAN - PLUS MANAGED MEDICAID [facility] TOTAL VISION [facility] TOTAL [id number] 2016-Present [employer] documented as of this encounter Advance Directives Name Relationship Healthcare Agent Communication Relationship Isabel Estrella Mother Primary healthcare agent [email or web address]
--- OUTSIDE RECORDS SUMMARY | 2020-02-16 19:20 | XMS REPORT | Summary of Care ---
:1990 Author Organization [facility] Address [address] [place] [address] Care Team Providers Name Role Phone Samanta Smallwood MD Primary Care Provider Samanta Waddell Insurance Hmo Reason for Visit Reason Comments Assessment Encounter Details Date Type Department Care Team Description 12/16/2019 Telephone [facility] Pediatric and Shirley Ac MD Assessment Adult Primary Care- [address] [place] [address] [address] [facility] , [address] [place] [address] Allergies Active Allergy Reactions Severity Noted [...] unspecified type 05/29/2018 Poor nutrition 05/29/2018 S/P RN MDS COORDINATOR shunt 05/29/2018 Self-catheterizes urinary bladder 05/29/2018 Overview: [...] Addre ss Type Group AETNA AETNA HMO [id number] 2018-Present O [facility] [place] xxxxxxxxx 2017-Present Medicaid COMM PLAN - PLUS MANAGED MEDICAID [facility] TOTAL VISION [facility] TOTAL [id number] 2016-Present [employer] documented as of this encounter Advance Directives Name Relationship Healthcare Agent Communication Relationship Isabel Estrella Mother Primary healthcare agent [email or web address]
--- OUTSIDE RECORDS SUMMARY | 2020-02-16 19:21 | XMS REPORT | Summary of Care ---
:1990 Author Organization [facility] Address [address] [place] [address] Care Team Providers Name Role Phone Samanta Smallwood MD Primary Care Provider Samanta Waddell Insurance Hmo Encounter Details Date Type Department Care Team Description 01/05/2020 Orders Only [facility] Doctor Unassigned, No 301 [facility] Name [place] [phone] [place] [phone] Allergies Active Allergy Reactions Severity Noted Date Comments Latex Rash, Nausea and/or High 02/25/2011 Vomiting Sulfa (Sulfonamide Antibiotics) Rash 7 Sulfamethoxazole (Bulk) Hives, Nausea and/or 1 Vomiting, Rash Tegaderm Dressing Hives 01/16/2019 Vancomycin Itching, Rash 12/28/2018 documented as of this encounter (statuses as of 01/15/2020) Medications Medication Sig Dispensed Refills Start Date [...] as of this encounter (statuses as of 01/15/2020) Active Problems Problem Noted Date Pressure injury of left buttock, stage 4 07/01/[address] 03/25/2019 Bicornuate uterus 09/23/2018 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 Pituitary tumor 07/12/2018 Elevated alkaline phosphatase level 06/07/2018 Hyperprolactinemia 06/07/2018 Persistent headaches 06/07/2018 Iron deficiency anemia, unspecified iron deficiency an emia type 06/07/2018 Cholelithiasis 06/03/2018 Recurrent UTI 05/29/2018 Irregular menses 05/29/2018 Anemia, unspecified type 05/29/2018 Poor nutrition 05/29/2018 S/P CHIP SEPARATOR shunt 05/29/2018 Self-catheterizes urinary bladder 05/29/2018 Overview: [...] as of this encounter (statuses as of 01/15/2020) Resolved Problems Problem Noted Date Resolved Date [...] as of this encounter (statuses as of 01/15/2020) Immunizations Name Administration Dates Next Due HPV9 [...] 02/15/2017, 01/16/2017 INFLUENZA VACCINE (Season 04/06/2020 Ended) Depression Screening 08/15/2020 08/15/2019 DTaP,Tdap,and Td Vaccines (2 01/30/2029 01/30/2019 - Td) PNEUMOCOCCAL 0-64 YEARS Aged Out No longe r eligible based COMBINED SERIES on patient's age [facility] documented as of this encounter Procedures Procedure Name Priority Date/Time Associated Diagnosis Comme nts DME/SUPPLY JUSTIFICATION Routine 01/05/2020 12:01 AM CDT documented in this encounter Results Not on filedocumented in this encounter Additional Health Concerns Infection Onset Date Last Indicated Resolved Time Contact - ESBL 02/15/2017 02/15/2017 documented as of this encounter Insurance Payer Benefit Plan / Subscriber ID Effective Dates Phone Addre ss Type Group AETNA AETNA HMO [id number] 2018-Present O [facility] [place] xxxxxxxxx 2017-Present Medicaid COMM PLAN - PLUS MANAGED MEDICAID [facility] TOTAL VISION [facility] TOTAL [id number] 2016-Present [employer] documented as of this encounter Advance Directives Name Relationship Healthcare Agent Communication Relationship Isabel Estrella Mother Primary healthcare agent [email or web address]
[2020-02-16] MEDS ORDERED: ACETAMINOPHEN 500 MG TAB ONE (20:06)
--- NOTE | 2020-02-16 20:24 | RAD REPORT ---
EXAM DESCRIPTION: RAD - Chest Single View - 02/16/2020 8:18 pm CLINICAL HISTORY: FEVER Chest pain. COMPARISON: Chest Single View dated 10/05/2019; Chest Single View dated 08/20/2019; Chest Single View d ated 07/18/2017; Chest Single View dated 07/18/2017 FINDINGS: Portable technique limits examination quality. The lungs are underinflated but grossly clear. The heart is normal in size. Right-sided ventriculosto my tubing is present.Severe levoscoliosis of the spine.
[2020-02-16] MEDS ORDERED: NA CHLORIDE 0.9% 1,000 ML ONE (21:14)
[2020-02-16] MEDS ORDERED: MORPHINE 2 MG/ML SYR ONE ×2 (21:14→23:39)
[2020-02-16] MEDS ORDERED: NA CHLORIDE 0.9% 50 ML IV ONE (21:16)
[2020-02-16] MEDS ORDERED: CEFTRIAXONE 1000 MG/VIAL ONE (21:16)
[2020-02-16 21:29] LABS: Absolute Lymphocytes (CBC) 1.7 K/uL (0.7-4.9); Basophils % 0.3 % (0-1.3); Hematocrit 35.5 % (36.0-45.0); MPV 7.4 fL (7.6-11.3); RBC Red Blood Cell Count 4.22 M/uL (3.86-4.86)
[2020-02-16 21:34] LABS: Protime INR 1.36
[2020-02-16 21:49] LABS: ALT/SGPT 21 U/L (12-78); AST/SGOT 18 U/L (15-37); Alkaline Phosphatase 156 U/L (45-117); Amylase 36 U/L (25-115); BUN Blood Urea Nitrogen 7 mg/dL (7-18); Bicarbonate 26 mmol/L (21-32); Bilirubin Direct 0.1 mg/dL (0-0.2); Bilirubin Total 0.3 mg/dL (0.2-1.0); CKMB Creatine Kinase MB < 1.0 ng/mL (0.3-3.6); Creatine Phosphokinase 35 U/L (26-192); Glucose Level 114 mg/dL (74-106); Lipase 43 U/L (73-393); Potassium 3.3 mmol/L (3.5-5.1); Protein, Total 8.5 g/dL (6.4-8.2); Sodium Level 137 mmol/L (136-145); Troponin (Emerg Dept Use Only) < 0.02 ng/mL (0.0-0.045)
[2020-02-16 21:55] LABS: Urine Bacteria >50 /HPF (<20); Urine Culture Reflex Order REFLEXED; Urine Mucus 2+ /HPF (NONE SEEN); Urine RBC <5 /HPF (NONE SEEN)
[2020-02-16 21:56] LABS: Urine Blood TRACE (NEG); Urine Glucose NEGATIVE (NEG); Urine Protein TRACE (NEG); Urine Specific Gravity 1.015 (1.005-1.030)
--- NOTE | 2020-02-16 22:25 | EDPHYS ---
Physician Documentation [facility] Name: Shari Estrella Age: 29 yrs Sex: Female : 1990 Arrival Date: 02/16/2020 Time: 19:19 Bed 18 Private MD: ED Physician Balta Allred HPI: 02/15 20:03 This 29 yrs old Female presents to ER via EMS with complaints of Uti. mh7 20:03 The patient presents with flank pain, bilaterally, urinary symptoms, dysuria. Onset: mh7 The symptoms/episode began/occurred 1 week(s) ago. Modifying factors: The symptoms are alleviated by nothing, the symptoms are aggravated by nothing. Associated signs and symptoms: Pertinent positives: fever, Pertinent negatives: constipation, cramping, diarrhea, dyspareunia, hematuria, nausea, vaginal bleeding, vaginal discharge, vomiting. Severity of symptoms: At their worst the symptoms were moderate, earlier today, in the emergency department the symptoms are unchanged. The patient has experienced similar episodes in the past, multiple times. Historical: - Allergies: 19:19 Adhesives; jb4 19:19 Bactrim; jb4 19:19 Demerol; jb4 19:19 Latex, Natural Rubber; jb4 19:19 Sulfa (Sulfonamide Antibiotics); jb4 19:19 Vancomycin; jb4 - Home Meds: 19:19 Oxycodone HCl Oral [Active]; Zoloft Oral [Active]; Atenolol Oral [Active]; jb4 - PMHx: 19:19 spina-bifida; Hypertension; UTI; sepsis; Pressure Ulcer to the Coccyx.; jb4 - PSHx: 19:19 Back Surgery; Shunt Placement; jb4 - Immunization history:: Adult Immunizations up to date. - Social history:: Smoking status: Patient denies any tobacco usage or history of. Patient/guardian denies using alcohol, street drugs. ROS: 20:03 Eyes: Negative for injury, pain, redness, and discharge, ENT: Negative for injury, mh7 pain, and discharge, Neck: Negative for injury, pain, and swelling, Cardiovascular: Negative for chest pain, palpitations, and edema, Respiratory: Negative for shortness of breath, cough, wheezing, and pleuritic chest pain, Abdomen/GI: Negative for abdominal pain, nausea, vomiting, diarrhea, and constipation, Back: Negative for injury and pain, MS/Extremity: Negative for injury and deformity, Skin: Negative for injury, rash, and discoloration, Neuro: Negative for headache, weakness, numbness, tingling, and seizure, Psych: Negative for depression, anxiety, suicide ideation, homicidal ideation, and hallucinations, Allergy/Immunology: Negative for hives, rash, and allergies, Endocrine: Negative for neck swelling, polydipsia, polyuria, polyphagia, and marked weight changes, Hematologic/Lymphatic: Negative for swollen nodes, abnormal bleeding, and unusual bruising. Exam: 20:03 Constitutional: This is a well developed, well nourished patient who is awake, alert, mh7 and in no acute distress. Head/Face: Normocephalic, atraumatic. Eyes: Pupils equal round and reactive to light, extra-ocular motions intact. Lids and lashes normal. Conjunctiva and sclera are non-icteric and not injected. Cornea within normal limits. Periorbital areas with no swelling, redness, or edema. Neck: Trachea midline, no thyromegaly or masses palpated, and no cervical lymphadenopathy. Supple, full range of motion without nuchal rigidity, or vertebral point tenderness. No Meningismus. Chest/axilla: Normal chest wall appearance and motion. Nontender with no deformity. No lesions are appreciated. 20:03 Respiratory: Lungs have equal breath sounds bilaterally, clear to auscultation and percussion. No rales, rhonchi or wheezes noted. No increased work of breathing, no retractions or nasal flaring. Abdomen/GI: Soft, non-tender, with normal bowel sounds. No distension or tympany. No guarding or rebound. No evidence of tenderness throughout. Back: No spinal tenderness. No costovertebral tenderness. Full range of motion. 20:03 MS/ Extremity: Pulses equal, no cyanosis. Neurovascular intact. Full, normal range of motion. Neuro: Awake and alert, GCS 15, oriented to person, place, time, and situation. Cranial nerves II-XII grossly intact. Motor strength 5/5 in all extremities. Sensory grossly intact. Cerebellar exam normal. Normal gait. Psych: Awake, alert, with orientation to person, place and time. Behavior, mood, and affect are within normal limits. 20:03 Cardiovascular: Rate: tachycardic, Rhythm: regular, Pulses: no pulse deficits are appreciated, Heart sounds: normal, normal S1and S2, Edema: is not appreciated, JVD: is not appreciated. 20:03 : CVA tenderness, noted bilaterally, Bladder: is normal. 02/16 01:16 ECG was reviewed by the Attending Physician. [facility] Vital Signs: 02/15 19:19 BP 132 / 90; Pulse 123; Resp 18; Temp 101.1(O); Pulse Ox 98% on R/A; Weight 32.66 kg jb4 (R); Pain 9/10; 20:45 BP 119 / 83; Pulse 118; Resp 16; Pulse Ox 100% on R/A; jb4 22:00 BP 106 / 69; Pulse 103; Resp 16; Pulse Ox 100% on R/A; Pain 2/10; jb4 22:45 BP 120 / 80; Pulse 99; Resp 16; Pulse Ox 100% on R/A; jb4 23:30 BP 110 / 78; Pulse 95; Resp 16; Pulse Ox 98% on R/A; jb4 02/16 00:15 BP 106 / 66; Pulse 92; Resp 16; Temp 98.3(O); Pulse Ox 100% on R/A; Pain 2/10; jb4 MDM: 02/15 19:42 Patient medically screened. [facility] 22:21 Differential diagnosis: urinary tract infection, pyelonephritis, sepsis. Data reviewed: [facility] vital signs, nurses notes, EMS record, old medical records, lab test result(s), CBC, electrolytes, urinalysis. Data interpreted: billet checker: rate is 99 beats/min, rhythm is normal sinus rhythm, regular, Interpretation: normal rate, normal rhythm, Pulse oximetry: on room air is 98 %. Interpretation: normal. Counseling: I had a detailed discussion with the patient and/or guardian regarding: the historical points, exam findings, and any diagnostic results supporting the discharge/admit diagnosis, lab results, radiology results, the need for further work-up and treatment in the hospital. Response to treatment: the patient's symptoms have markedly improved after treatment. 02/15 20:02 Order name: Amylase, Serum [facility] 02/15 20:02 Order name: Basic Metabolic Panel [facility] 02/15 20:02 Order name: Blood Culture Adult (2) [facility] 02/15 20:02 Order name: CBC with Diff; Complete Time: 21:[address] [facility] 02/15 20:02 Order name: Ckmb [facility] 02/15 20:02 Order name: CPK [facility] 02/15 20:02 Order name: Lactate; Complete Time: 21:[address] [facility] 02/15 20:02 Order name: LFT's [facility] 02/15 20:02 Order name: Lipase [facility] 02/15 20:02 Order name: Procalcitonin; Complete Time: 22:[address] [facility] 02/15 20:02 Order name: Protime (+inr); Complete Time: 21:[address] [facility] 02/15 20:02 Order name: Ptt, Activated; Complete Time: 21:[address] [facility] 02/15 20:02 Order name: Troponin (emerg Dept Use Only) [facility] 02/15 20:02 Order name: Urine Microscopic Only; Complete Time: 22:[address] [facility] 02/15 20:02 Order name: Chest Single View XRAY; Complete Time: 21:[address] [facility] 02/15 21:36 Order name: Urine Dipstick--Ancillary (enter results); Complete Time: 22:16 [facility] 02/15 21:36 Order name: Urine --Ancillary (enter results); Complete Time: 22:16 [facility] 02/15 21:56 Order name: Urine Culture [facility] 02/15 21:56 Order name: Urine Culture [facility] 02/15 22:55 Order name: C-Reactive Protein [facility] 02/15 22:55 Order name: Sedimentation Rate, [place] [facility] 02/15 22:55 Order name: CBC with Automated Diff [facility] 02/15 22:55 Order name: CBC with Automated Diff [facility] 02/15 22:55 Order name: Comprehensive Metabolic Panel [facility] 02/15 22:55 Order name: Comprehensive Metabolic Panel [facility] 02/15 22:55 Order name: Protime (+INR) [facility] 02/15 22:55 Order name: Protime (+INR) [facility] 02/15 22:55 Order name: PTT, Activated Partial Thromb EDAR 02/15 22:55 Order name: PTT, Activated Partial Thromb EDAR 02/15 23:16 Order name: C-Reactive Protein [facility] 02/15 20:02 Order name: Accucheck; Complete Time: 21:[address] [facility] 02/15 20:02 Order name: Cardiac monitoring; Complete Time: 21:[address] [facility] 02/15 20:02 Order name: EKG - Nurse/Tech; Complete Time: 21:[address] [facility] 02/15 20:02 Order name: IV Saline Lock - Large Bore; Complete Time: 21:[address] [facility] 02/15 20:02 Order name: Labs collected and sent; Complete Time: 21:[address] [facility] 02/15 20:02 Order name: O2 Per Protocol; Complete Time: 21:[address] [facility] 02/15 20:02 Order name: O2 Sat Monitoring; Complete Time: 21:[address] [facility] 02/15 20:02 Order name: Urine Dipstick-Ancillary (obtain specimen); Complete Time: 21:[address] [facility] 02/15 22:55 Order name: CONS Pharmacy Consult EDMS 02/15 22:55 Order name: Regular EDMS EC/14 01:16 Rate is 117 beats/min. Rhythm is regular, Sinus tachycardia. QRS [place] is Normal. [place] mh7 interval is normal. QRS interval is normal. QT interval is normal. Q waves are Present in leads III, aVF. T waves are Inverted in leads V2, V3, V4. No ST changes noted. Clinical impression: Abnormal EKG without significant change. Administered Medications: 02/15 19:45 Drug: Tylenol 500 mg Route: PO; [facility] 20:15 Follow up: Response: No adverse reaction [facility] 21:27 Drug: NS 0.9% (30 ml/kg) 30 ml/kg Route: IV; Rate: bolus; Site: left antecubital; [facility] 23:00 Follow up: Response: No adverse reaction; IV Status: Completed infusion; IV Intake: [facility] 1000ml 21:27 Drug: morphine 2 mg Route: IVP; Site: left antecubital; [facility] 22:00 Follow up: Response: No adverse reaction; Pain is decreased; RASS: Alert and Calm (0) [facility] 21:28 Drug: Rocephin - (cefTRIAXone) 1 grams Route: IVPB; Infused Over: 30 mins; Site: left [facility] antecubital; 21:58 Follow up: Response: No adverse reaction; IV Status: Completed infusion; IV Intake: [id number] 23:34 Drug: morphine 2 mg Route: IVP; Site: left antecubital; 02/16 00:00 Follow up: Response: No adverse reaction; Pain is decreased; RASS: Alert and Calm (0) jb4 Disposition: 02/16/20 22:24 Hospitalization ordered by Fern Ivory for Inpatient Admission. Preliminary diagnosis are Urinary tract infection, site not specified, Sepsis. - Bed requested for [facility] ER HOLD. - Status is Inpatient Admission. - Condition is Stable. - Problem is an acute exacerbation. - Symptoms have improved. Signatures: Dispatcher [employer] EDAR Veronica Lu RN RN Vimal Becker RN RN 4 [facility] Julee Barbour RN RN Balta Allred MD MD 7 Corrections: (The following items were deleted from the chart) 02/15 23:08 22:24 Hospitalization Ordered by Fern Ivory MD for Inpatient Admission. Preliminary diagnosis is Urinary tract infection, site not specified; Sepsis. Bed requested for Telemetry/MedSurg (Inpatient). Status is Inpatient Admission. Condition is Stable. Problem is an acute exacerbation. Symptoms have improved. [facility] 23:08 23:08 02/16/2020 22:24 Hospitalization Ordered by Fern Ivory MD for Inpatient Admission. Preliminary diagnosis is Urinary tract infection, site not specified; Sepsis. Bed requested for [facility] ER HOLD. Status is Inpatient Admission. Condition is Stable. Problem is an acute exacerbation. Symptoms have improved. 02/16 20:45 02/15 23:08 02/16/2020 22:24 Hospitalization Ordered by Fern Ivory MD for Inpatient Admission. Preliminary diagnosis is Urinary tract infection, site not specified; Sepsis. Bed requested for [facility] ER HOLD. Status is Inpatient Admission. Condition is Stable. Problem is an acute exacerbation. Symptoms have improved.
--- NOTE | 2020-02-16 22:25 | ER ---
Nurse's Notes [facility] Name: Shari Estrella Age: 29 yrs Sex: Female : 1990 Arrival Date: 02/16/2020 Time: 19:19 Bed 18 Private MD: Diagnosis: Urinary tract infection, site not specified;Sepsis Presentation: 02/15 19:19 Chief complaint: EMS states: Pt has a history of spina bifida and thinks she has a UTI. jb4 Last time she had one she says she became septic. 19:19 Coronavirus screen: Proceed with normal triage. Patient denies a cough. Patient denies jb4 shortness of breath or difficulty breathing. Patient reports a measured and/or subjective temperature greater than 100.4F. Patient denies travel on a cruise ship or to a country the [facility] currently lists as an affected area. Patient denies contact with known and/or suspected case of COVID-19. Ebola Screen: No symptoms or risks identified at this time. Initial Sepsis Screen: Does the patient meet any 2 criteria? Temp <36.0*C (96.8*F)) or > 38.3*C (100.9*F). HR > 90 bpm. Yes Does the patient have a suspected source of infection? Yes: Dysuria/Frequency/Urgency/UTI Skin breakdown/wound If YES to both, name of provider notified: Balta Allred MD Risk Assessment: Do you want to hurt yourself or someone else? Patient reports no desire to harm self or others. Onset of symptoms was February 16, 2020. Care prior to arrival: None. Transition of care: patient was not received from another setting of care. 19:19 Method Of Arrival: EMS: [facility] jb4 19:19 Acuity: SAMAN 3 jb4 Historical: - Allergies: 19:19 Adhesives; jb4 19:19 Bactrim; jb4 19:19 Demerol; jb4 19:19 Latex, Natural Rubber; jb4 19:19 Sulfa (Sulfonamide Antibiotics); jb4 19:19 Vancomycin; jb4 - Home Meds: 19:19 Oxycodone HCl Oral [Active]; Zoloft Oral [Active]; Atenolol Oral [Active]; jb4 - PMHx: 19:19 spina-bifida; Hypertension; UTI; sepsis; Pressure Ulcer to the Coccyx.; jb4 - PSHx: 19:19 Back Surgery; Shunt Placement; jb4 - Immunization history:: Adult Immunizations up to date. - Social history:: Smoking status: Patient denies any tobacco usage or history of. Patient/guardian denies using alcohol, street drugs. Screenin:19 Abuse screen: Denies threats or abuse. Nutritional screening: No deficits noted. jb4 Tuberculosis screening: No symptoms or risk factors identified. Fall Risk None identified. Assessment: 19:19 General: Appears in no apparent distress. uncomfortable, Behavior is. Pain: Complains jb4 of pain in left gluteus pantera Pain does not radiate. Pain currently is 8 out of 10 on a pain scale. Neuro: Level of Consciousness is awake, alert, obeys commands. Cardiovascular: Patient's skin is warm and dry. Respiratory: Airway is patent Respiratory effort is even, unlabored, Respiratory pattern is regular, symmetrical. GI: No signs and/or symptoms were reported involving the gastrointestinal system. : Urine is cloudy, Reports possible uti. EENT: No signs and/or symptoms were reported regarding the EENT system. Derm: Skin is pink, warm \T\ dry. Wound noted left gluteus pantera Wound is Wound is moist, red, surrounding tissues are pink warm and dry. Musculoskeletal: Pt has spina-bifida and has limited use of her lower body. 20:30 Reassessment: Patient appears in no apparent distress at this time. Patient and/or jb4 family updated on plan of care and expected duration. Pain level reassessed. Patient is alert, oriented x 3, equal unlabored respirations, skin warm/dry/pink. 21:30 Reassessment: Patient appears in no apparent distress at this time. Patient and/or jb4 family updated on plan of care and expected duration. Pain level reassessed. Patient is alert, oriented x 3, equal unlabored respirations, skin warm/dry/pink. Patient states feeling better. 22:30 Reassessment: Patient appears in no apparent distress at this time. Patient and/or jb4 family updated on plan of care and expected duration. Pain level reassessed. Patient is alert, oriented x 3, equal unlabored respirations, skin warm/dry/pink. 23:30 Reassessment: Patient appears in no apparent distress at this time. Patient and/or jb4 family updated on plan of care and expected duration. Pain level reassessed. Patient is alert, oriented x 3, equal unlabored respirations, skin warm/dry/pink. Pt reports increased pain, provider notified, see [facility] for orders. 02/16 00:30 Reassessment: Patient appears in no apparent distress at this time. Patient and/or jb4 family updated on plan of care and expected duration. Pain level reassessed. Patient is alert, oriented x 3, equal unlabored respirations, skin warm/dry/pink. Pt reports pain has decreased and is feeling better. Pt admitted to ER hold. See [facility] for further documentation. Vital Signs: 02/15 19:19 BP 132 / 90; Pulse 123; Resp 18; Temp 101.1(O); Pulse Ox 98% on R/A; Weight 32.66 kg jb4 (R); Pain 9/10; 20:45 BP 119 / 83; Pulse 118; Resp 16; Pulse Ox 100% on R/A; jb4 22:00 BP 106 / 69; Pulse 103; Resp 16; Pulse Ox 100% on R/A; Pain 2/10; jb4 22:45 BP 120 / 80; Pulse 99; Resp 16; Pulse Ox 100% on R/A; jb4 23:30 BP 110 / 78; Pulse 95; Resp 16; Pulse Ox 98% on R/A; jb4 02/16 00:15 BP 106 / 66; Pulse 92; Resp 16; Temp 98.3(O); Pulse Ox 100% on R/A; Pain 2/10; jb4 ED Course: 02/15 19:19 Patient arrived in ED. ss 19:19 Arm band placed on right wrist. jb4 19:19 Patient has correct armband on for positive identification. Bed in low position. Call jb4 light in reach. Side rails up X 1. Pulse ox on. NIBP on. 19:20 Balta Allred MD is Attending Physician. 7 19:31 Vimal Becker, CHATA is Primary Nurse. jb4 19:36 Triage completed. jb4 20:19 Chest Single View XRAY In Process Unspecified. EDMS 20:50 Inserted saline lock: 22 gauge in left antecubital area, using aseptic technique. Blood jb4 collected. 20:50 Initial lab(s) drawn, by nc, sent to lab. First set of blood cultures drawn by me. jb4 21:05 Second set of blood cultures drawn by nc. jb4 22:23 Fern Ivory MD is Hospitalizing Provider. [facility] 02/16 00:30 No provider procedures requiring assistance completed. Patient admitted, IV remains in jb4 place. 14:18 Inserted saline lock: 24 gauge in left upper arm, using aseptic technique. ll1 14:18 IV discontinued, intact, bleeding controlled, No redness/swelling at site. Pressure ll1 dressing applied. Administered Medications: 02/15 19:45 Drug: Tylenol 500 mg Route: PO; jb4 20:15 Follow up: Response: No adverse reaction jb4 21:27 Drug: NS 0.9% (30 ml/kg) 30 ml/kg Route: IV; Rate: bolus; Site: left antecubital; jb4 23:00 Follow up: Response: No adverse reaction; IV Status: Completed infusion; IV Intake: jb4 1000ml 21:27 Drug: morphine 2 mg Route: IVP; Site: left antecubital; jb4 22:00 Follow up: Response: No adverse reaction; Pain is decreased; RASS: Alert and Calm (0) jb4 21:28 Drug: Rocephin - (cefTRIAXone) 1 grams Route: IVPB; Infused Over: 30 mins; Site: left jb4 antecubital; 21:58 Follow up: Response: No adverse reaction; IV Status: Completed infusion; IV Intake: [id number] 23:34 Drug: morphine 2 mg Route: IVP; Site: left antecubital; 02/16 00:00 Follow up: Response: No adverse reaction; Pain is decreased; RASS: Alert and Calm (0) jb4 Intake: 02/15 21:58 IV: 50ml; Total: 50ml. jb4 23:00 IV: 1000ml; Total: 1050ml. jb4 Outcome: 22:24 Decision to Hospitalize by Provider. [facility] 02/16 00:30 Admitted to ER Hold. Please see [facility] for further documentation. jb4 Condition: stable Discharge instructions given to patient, Instructed on the need for admit, Demonstrated understanding of instructions. 20:45 Patient left the ED. wh Signatures: Dispatcher [facility] Hospital[facility]ury Maxwell RN RN ss Vimal Becker, RN RN jb4 Alesha Broderick Vanessa, RN RN Aldo Lemus RN RN ll1 Balta Allred MD MD 7
[2020-02-16] MEDS ORDERED: ACETAMINOPHEN 500 MG TAB PO PRN (22:52)
[2020-02-16] MEDS ORDERED: MORPHINE 4 MG/ML SYR IV PRN (22:52)
[2020-02-16] MEDS ORDERED: ONDANSETRON 4 MG/2 ML VIAL IV PRN (22:52)
[2020-02-16] MEDS ORDERED: CEFTRIAXONE 1 GM/NS 50 ML 1 GM/50 ML BAG IV ONE (23:00)
[2020-02-17 00:56] VITALS: BMI 40.6
[2020-02-17] MEDS ORDERED: Meropenem 1000 MG/VIAL IV SCH (01:00)
[2020-02-17] MEDS ORDERED: NA CHLORIDE 0.9% 1,000 ML ONE ×2 (01:42→12:06)
[2020-02-17] MEDS: NA CHLORIDE 0.9% 1,000 ML IV SCH (01:45)
[2020-02-17] MEDS ORDERED: ACETAMINOPHEN 500 MG TAB ONE ×2 (05:17→15:25)
[2020-02-17] MEDS ORDERED: MORPHINE 4 MG/ML SYR ONE ×4 (05:17→18:30)
[2020-02-17 05:48] LABS: ALT/SGPT 14 U/L (12-78); AST/SGOT 9 U/L (15-37); Albumin 2.3 g/dL (3.4-5.0); Alkaline Phosphatase 116 U/L (45-117); BUN Blood Urea Nitrogen 4 mg/dL (7-18); Bicarbonate 25 mmol/L (21-32); Bilirubin Total 0.3 mg/dL (0.2-1.0); Glucose Level 106 mg/dL (74-106); Potassium 3.4 mmol/L (3.5-5.1); Protein, Total 6.6 g/dL (6.4-8.2); Sodium Level 142 mmol/L (136-145)
[2020-02-17 06:03] LABS: Absolute Lymphocytes (CBC) 1.8 K/uL (0.7-4.9); Basophils % 0.3 % (0-1.3); Hematocrit 28.2 % (36.0-45.0); Lymphocytes % 15.3 % (15.3-44.8); MPV 7.4 fL (7.6-11.3); Protime INR 1.43; RBC Red Blood Cell Count 3.33 M/uL (3.86-4.86)
[2020-02-17] MEDS ORDERED: CEFTRIAXONE 1 GM/NS 50 ML 1 GM/50 ML BAG IV SCH (09:00)
[2020-02-17] MEDS ORDERED: CEFTRIAXONE/SWI 1gm 1 GM/10 ML SYR IV SCH (09:00)
[2020-02-17] MEDS ORDERED: CEFTRIAXONE/SWI 1gm 1 GM/10 ML SYR ONE (09:31)
[2020-02-17] MEDS: Meropenem 1,000 MG in NA CHLORIDE 0.9% 100 ML IV SCH ×2 (09:40→17:00)
[2020-02-17] MEDS ORDERED: DIPHENHYDRAMINE 25 MG TAB/CAP PO PRN (13:29)
[2020-02-17] MEDS ORDERED: TIZANIDINE 4 MG TABLET PO PRN (13:29)
[2020-02-17] MEDS ORDERED: Oxycodone HCl/Acetaminophen 1 TAB TAB PO PRN (13:29)
[2020-02-17] MEDS ORDERED: HYDROCORTISONE SUC 100 MG INJ IV ONE (13:32)
[2020-02-17] MEDS ORDERED: ACETAMINOPHEN 500 MG TAB PO ONE (13:36)
[2020-02-17] MEDS ORDERED: CEFTRIAXONE 1 GM/NS 50 ML 1 GM/50 ML BAG IV ONE (13:38)
--- NOTE | 2020-02-17 13:49 | P.HP ---
Certification for Inpatient Patient admitted to: Observation With expected LOS: <2 Midnights Patient will require the following post-hospital care: None Practitioner: I am a practitioner with admitting privileges, knowledge of patient current condition, hospital course, and medical plan of care. Services: Services provided to patient in accordance with Admission requirements found in Title 42 Section 412.3 of the Code of Federal Regulations Patient History Date of Service: 02/16/20 Reason for admission: UTI WITH SEPSIS History of Present Illness: PATIENT IS A 29-YEAR-OLD FEMALE WHO CAME TO THE HOSPITAL WITH FEVERS. SHE WAS BEING TREATED FOR URINARY TRACT INFECTION AN OUTPATIENT. SHE WAS GIVEN NITROFURANTOIN BUT SHE WAS NOT GETTING ANY RELIEF. SHE CAME INTO THE HOSPITAL BECAUSE OF THE FEVERS. IN THE EMERGENCY ROOM SHE WAS FOUND TO HAVE A UTI. SHE ALSO HAD A LEUKOCYTOSIS. PATIENT WAS STARTED ON IV FLUIDS. PATIENT WAS STARTED ON MERREM AND ROCEPHIN. AT THIS TIME, PATIENT WILL BE ADMITTED TO THE HOSPITAL FOR OBSERVATION STATUS. SHE IS HIGH RISK FOR MULTI-DRUG RESISTANT URINARY TRACT INFECTION. IF SHE REMAINS AFEBRILE WILL NEED TO DISCHARGE HER WE HAVE A SHORTAGE OF BED IN THE HOSPITAL. WE HAVE NUMEROUS COVID-19 PATIENT'S AND BECAUSE OF HER MULTIPLE RISK FACTORS WE NEED TO KEEP HER PROTECTED. AT THIS TIME PATIENT WILL BE ADMITTED FOR INPATIENT HOSPITALIZATION. WE MAY HAVE TO DISCHARGE HER TOMORROW IF SHE IS IMPROVING QUICKLY. Allergies adhesive tape Allergy (Verified 07/29/19 01:10) Rash Latex, Natural Rubber Allergy (Verified 07/29/19 01:10) Rash Sulfa (Sulfonamide Antibiotics) Allergy (Verified 07/29/19 01:10) Hives/Rash sulfamethoxazole [From Bactrim] Allergy (Verified 07/29/19 01:10) Hives trimethoprim [From Bactrim] Allergy (Verified 07/29/19 01:10) Hives vancomycin Allergy (Verified 07/29/19 01:10) Hives/Rash Adhesives Allergy (Uncoded 07/08/17 16:36) Unknown Home Medications: Atenolol [Tenormin] 100 mg PO DAILY 02/17/20 Diphenhydramine [Benadryl Tab/Cap] 50 mg PO BEDTIME PRN PRN 02/17/20 Oxycodone HCl/Acetaminophen [Oxycodone-Acetaminophen 10-325] 1 each PO Q6HP PRN 02/17/20 Sertraline HCl [Zoloft] 20 mg PO DAILY 02/17/20 Tizanidine HCl 4 mg PO TIDP PRN MDD 12 02/17/20 - Past Medical/Surgical History Has patient received pneumonia vaccine in the past: No Diabetic: No -: Stage III decubitus ulcer -: Spina Bifida -: MRSA -: scoliosis -: HTN -: GERD -: Osteomyelitis -: Multiple back surgeries -: Right great toe amputated -: bowel surgery cecostomy -: Suprapubic stoma -: 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 moist/pink, EOMI, Sclerae nonicteric Neck: Supple, 2+ carotid pulse no bruit, No LAD, Without JVD or thyroid abnormality Respiratory: Clear to auscultation bilaterally, Normal air movement Cardiovascular: Regular rate/rhythm, Normal S1 S2, No murmurs Gastrointestinal: Normal bowel sounds, Soft and benign, Non-distended, Tenderness Musculoskeletal: No clubbing, No swelling, No tenderness Integumentary: Pressure ulcer Neurological: Normal tone, Sensation intact, Cranial nerves 3-12 intact, Abnormal gait, Abnormal strength Lymphatics: No axilla or inguinal lymphadenopathy - Studies Laboratory Data (last 24 hrs) 02/16/20 20:50: PT 16.0 H, INR 1.36, APTT 45.6 H 02/16/20 20:50: WBC 17.4 H, Hgb 11.7 L, Hct 35.5 L, Plt Count 530 H 02/16/20 20:50: Sodium 137, Potassium 3.3 L, BUN 7, Creatinine 0.43 L, Glucose 114 H, Total Bilirubin 0.3, AST 18, ALT 21, Alkaline Phosphatase 156 H, Amylase 36, Lipase 43 L Assessment & Plan - Problems (Diagnosis) (1) Fever Current Visit: No Status: Acute (2) Pressure ulcer of ischial area, stage 4 Onset Date: 06/01/17 Current Visit: No Status: Acute (3) UTI (urinary tract infection) Onset Date: 07/12/15 Current Visit: No Status: Acute Qualifiers: (4) Spina bifida Onset Date: 06/01/17 Current Visit: No Status: Chronic Qualifiers: - Plan 1. CONTINUE WITH IV ANTIBIOTIC 2. CONTINUE WITH LOCAL WOUND CARE 3. IV ABX 4. GENTLE IV HYDRATION 5. MONITOR CBC 6. STRICT BLOOD SUGAR MONITORING 7. PAIN CONTROL 8. GI AND DVT PROPHYLAXIS Discharge Plan: Home Plan to discharge in: 48 Hours - Advance Directives Does patient have a Living Will: No Does patient have a Durable POA for Healthcare: No - Code Status/Comfort Care Code Status Assessed: Yes Code Status: Full Code Critical Care: No Time Spent Managing PTS Care (In Minutes): 45
[2020-02-17] MEDS ORDERED: SERTRALINE HCL 50 MG TAB PO SCH (13:50)
[2020-02-17] MEDS ORDERED: atenoloL 50 MG TAB PO SCH (13:50)
[2020-02-17] MEDS ORDERED: HYDROCORTISONE SUC 100 MG INJ ONE (13:57)
[2020-02-17] MEDS ORDERED: atenoloL 50 MG TAB ONE (13:58)
[2020-02-17] MEDS ORDERED: Meropenem 1000 MG/VIAL IV ONE (14:00)
[2020-02-17] MEDS ORDERED: CEFTRIAXONE/SWI 1gm 1 GM/10 ML SYR IV ONE (14:00)
[2020-02-17] MEDS ORDERED: Meropenem 1,000 MG in NA CHLORIDE 0.9% 100 ML IV ONE (14:00)
[2020-02-17] MEDS ORDERED: OXYCODONE HCL 5 MG TAB PO PRN (14:22)
[2020-02-17 20:23] VITALS: BP 122/76; TEMP 98.5
[2020-02-17 20:57] VITALS: O2SAT 100
--- NOTE | 2020-02-18 07:48 | EKG ---
Test Date: 2020-02-16 Test Time: 20:50:01 Cath Lab Radiological Technologist: NEEL MEASUREMENT RESULTS: Intervals: Rate: 117 AL: 120 QRSD: 80 QT: 308 QTc: 429 [place]: P: 17 AL: 120 QRS: 23 T: 183 INTERPRETIVE STATEMENTS: Sinus tachycardia Inferior infarct, age undetermined T wave abnormality, consider anterolateral ischemia Abnormal ECG Compared to ECG 07/10/2017 20:01:35 T-wave abnormality now present Possible ischemia now present Sinus rhythm no longer present Myocardial infarct finding still present Electronically Signed On 02-18-20 07:44:59 CDT by Donell Murphy
--- NOTE | 2020-02-19 13:07 | P.DS ---
Discharge Date: 02/17/20 Disposition: DC HOME/HOME HEALTH CARE Discharge Condition: GOOD Reason for Admission: UTI WITH SEPSIS - Problems (1) Fever Status: Acute (2) Pressure ulcer of ischial area, stage 4 Onset Date: 06/01/17 Status: Acute (3) UTI (urinary tract infection) Onset Date: 07/12/15 Status: Acute Qualifiers: (4) Spina bifida Onset Date: 06/01/17 Status: Chronic Qualifiers: Brief History of Present Illness: PATIENT IS A 29-YEAR-OLD FEMALE WHO CAME TO THE HOSPITAL WITH FEVERS. SHE WAS BEING TREATED FOR URINARY TRACT INFECTION AN OUTPATIENT. SHE WAS GIVEN N ITROFURANTOIN BUT SHE WAS NOT GETTING ANY RELIEF. SHE CAME INTO THE HOSPITAL BECAUSE OF THE FEVERS. IN THE EMERGENCY ROOM SHE WAS FOUND TO HAVE A UTI. SHE ALSO HAD A LEUKOCYTOSIS. PATIENT WAS STARTED ON IV FLUIDS. PATIENT WAS STARTED ON MERREM AND ROCEPHIN. AT THIS TIME, PATIENT WILL BE ADMITTED TO THE HOSPITAL FOR OBSERVATION STATUS. SHE IS HIGH RISK FOR MULTI-DRUG RESISTANT URINARY TRACT INFECTION. IF SHE REMAINS AFEBRILE WILL NEED TO DISCHARGE HER WE HAVE A SHORTAGE OF BED IN THE HOSPITAL. WE HAVE NUMEROUS COVID-19 PATIENT'S AND BECAUSE OF HER MULTIPLE RISK FACTORS WE NEED TO KEEP HER PROTECTED. AT THIS TIME PATIENT WILL BE ADMITTED FOR INPATIENT HOSPITALIZATION. WE MAY HAVE TO DISCHARGE HER TOMORROW IF SHE IS IMPROVING QUICKLY. Hospital Course: Patient has done well during hospital stay. Continue with IV antibiotic therapy as an outpatient. Return to the ER if fever worsens. Continue with pain control and antipyretics. Follow with PCP in 1 week. If fevers worsen or if patient starts having pain patient needs return to the emergency room. Vital Signs/Physical Exam: Temp Pulse Resp BP Pulse Ox 98.5 F 96 H 18 122/76 100 02/17/20 20:00 02/17/20 20:00 02/17/20 20:00 02/17/20 20:00 02/17/20 20:00 General: Alert, In no apparent distress, Oriented x3 Laboratory Data at Discharge: WBC 11.9 K/uL (4.3-10.9) H D 02/17/20 05:15 Hgb 9.3 g/dL (12.0-15.0) L 02/17/20 05:15 Hct 28.2 % (36.0-45.0) L D 02/17/20 05:15 Plt Count 425 K/uL (152-406) H 02/17/20 05:15 PT 16.7 SECONDS (9.5-12.5) H 02/17/20 05:15 INR 1.43 02/17/20 05:15 APTT 37.7 SECONDS (24.3-36.9) H 02/17/20 05:15 Sodium 142 mmol/L (136-145) 02/17/20 05:15 Potassium 3.4 mmol/L (3.5-5.1) L 02/17/20 05:15 BUN 4 mg/dL (7-18) L 02/17/20 05:15 Creatinine 0.21 mg/dL (0.55-1.3) L 02/17/20 05:15 Glucose 106 mg/dL (74-106) 02/17/20 05:15 Total Bilirubin 0.3 mg/dL (0.2-1.0) 02/17/20 05:15 AST 9 U/L (15-37) L 02/17/20 05:15 ALT 14 U/L (12-78) 02/17/20 05:15 Alkaline Phosphatase 116 U/L (45-117) 02/17/20 05:15 Amylase 36 U/L (25-115) 02/16/20 20:50 Lipase 43 U/L (73-393) L 02/16/20 20:50 Home Medications: Atenolol [Tenormin] 100 mg PO DAILY 02/17/20 Cefdinir [Omnicef] 300 mg PO BID #20 capsule 02/17/20 Diphenhydramine [Benadryl*] 50 mg PO BEDTIME PRN PRN 02/17/20 Nitrofuran Macro [Macrobid*] 100 mg PO BID #40 cap 02/17/20 Oxycodone HCl/Acetaminophen [Oxycodone-Acetaminophen 10-325] 1 each PO Q6HP PRN 02/17/20 Sertraline HCl [Zoloft] 20 mg PO DAILY 02/17/20 Tizanidine HCl 4 mg PO TIDP PRN MDD 12 02/17/20 New Medications: Nitrofuran Macro [Macrobid*] 100 mg PO BID #40 cap Cefdinir [Omnicef] 300 mg PO BID #20 capsule Patient Discharge Instructions: OK TO DC IV AND DC HOME. FOLLOW-UP WITH PRIMARY CARE PROVIDER IN 1-2 WEEKS. FOLLOW-UP WITH WOUND HEALING IN 1-2 WEEKS. RETURN TO THE ER IF SYMPTOMS WORSEN. CALL DR. KELLEY AT [phone] IF ANY QUESTIONS REGARDING HOSPITAL STAY. PLEASE CALL THE FLOOR AT [phone] IF ANY MEDICATION OR NURSING QUESTIONS. Diet: Regular Activity: Fall precautions Time spent managing pt's care (in minutes): 30
== END 2020-02-17 20:45 | disposition home health service (06) ==
LOC: ER 19:17 → ERHOLD 23:00 → INTOOBSV 23:00
PROVIDERS: ADMIT Hospitalist; ATTEND Hospitalist
DX: R50.9 Fever, unspecified (principal); N39.0 Urinary tract infection, site not specified; Z16.24 Resistance to multiple antibiotics; R94.31 Abnormal electrocardiogram [ECG] [EKG]; R00.0 Tachycardia, unspecified; Q05.9 Spina bifida, unspecified; I10 Essential (primary) hypertension; K21.9 Gastro-esophageal reflux disease without esophagitis; Z79.899 Other long term (current) drug therapy; Z86.14 Personal history of Methicillin resistant Staphylococcus aureus infection
CPT/HCPCS: 96365; 93005; 87040 ×2; 87088; 85025 ×2; 87086; 80048; 36415; 82150; 82550; 81025; 85610 ×2; 80076; 83605; 85730 ×2; 85652; 87077; 87186; 84484; 82553; 83690; 80053; 84145; 86140; 71045; 96375; 99285; J2270 ×2; J2185 ×3; J0696; J7030 ×3; J1720; G0378 ×2; 81003; 81015

== ENCOUNTER 2020-07-08 10:40 | Inpatient (IN) | payer OTHER ==
--- OUTSIDE RECORDS SUMMARY | 2020-07-08 10:44 | XMS REPORT | Clinical Summary ---
:1990 Author Organization [facility] Address [address] [place] [address] Care Team Providers Name Role Phone Unavailable Primary Care Provider Unavailable Allergies Not on File Medications Not on file Active Problems Not on file Social History Tobacco Use Types Packs/Day Years Used Date Never Assessed Sex Assigned at Date Recorded Not on file Last Filed Vital Signs Not on file Plan of Treatment Not on file Results Not on fileafter 07/08/2019 Insurance Payer Benefit Plan Subscriber ID Effective Dates Phone Address Type / Group MEDICAID - [facility] COMM [id number] Effective for Med icaid MEDICAID [place] STAR PLAN all dates Contrac carlos CARE AETNA - [place] AETNA HMO POS [id number] 2018-Presen HMO/POS CARE QPOS t
--- OUTSIDE RECORDS SUMMARY | 2020-07-08 10:44 | XMS REPORT | Continuity of Care Document ---
:1990 Author Organization [facility] t Address [address] [place] [address] Care Team Providers Name Role Phone Pob, Lab Main Attending Clinician Unavailable Doctor Unassigned, Name Attending Clinician Unavailable Samanta Smallwood MD Attending Clinician Te Vigil MD Attending Clinician Jeff Meraz MD, Kermit Davila Attending Clinician + Problems This patient has no known problems. Allergies, Adverse Reactions, Alerts This patient has no known allergies or adverse reactions. Social History Social Habit Start Date Stop Date Quantity Comments Source Sex Assigned At [facility] Medications This patient has no known medications. Procedures This patient has no known procedures. Encounters Start End Encounter Admission Attending Care Care Encounter Source Date/Time Date/Time Type Type Clinicians Facility Department ID 2020-07-05 2020-07-05 Treasury Manager Erika Adams [id number] 14:05:50 14:20:50 Visit Lab Main [place] [id number] [place] [id number] J[place] [id number] [address] 2020-07-05 2020-07-05 Orders Doctor HURST 1.2.840.114 [id number] 00:00:00 00:00:00 Only Unassigned, JESSICA [id number] [facility] [id number] [id number] 2020-05-17 2020-05-17 Orders Doctor NATALI Nuno.2.840.114 [id number] 00:00:00 00:00:00 Only Unassigned, JESSICA [id number] [facility] [id number] [id number] [id number] 2020-03-18 2020-03-18 Orders Doctor HURST 1.2.840.114 [id number] 00:00:00 00:00:00 Only Unassigned, JESSICA [id number] [facility] [id number] [id number] 2020-03-09 2020-03-09 Orders Doctor HURST 1.2.840.114 [id number] 00:00:00 00:00:00 Only Unassigned, JESSICA [id number] [facility] [id number] [id number] [id number] 2020-01-05 2020-01-05 Orders Doctor HURST Nuno.2.840.114 [id number] 00:00:00 00:00:00 Only Unassigned, JESSICA [id number] [facility] [id number] [id number] [id number] 2019-12-18 2019-12-18 [email or web address] 1.2.840.114 [id number] 00:00:00 00:00:00 Wondiful A [place] [id number] [place] [id number] Professio [phone] [address] 2019-12-16 2019-12-16 [facility] 1.2.840.114 [id number] 00:00:00 00:00:00 Wondiful A [place] [id number] [place] [id number] Professio [phone] [address] 2019-12-09 2019-12-09 Orders Doctor NATALI Tinoco2.840.114 [id number] 00:00:00 00:00:00 Only Unassigned, JESSICA [id number] [facility] [id number] [id number] [id number] 2019-11-24 2019-11-24 Telephone [facility] 1.2.840.114 [id number] 00:00:00 00:00:00 Wondiful A [place] [id number] [place] [id number] Professio [phone] [place] [address] Building 2019-11-24 2019-11-24 Orders Doctor NATALI 1.2.840.114 [id number] 00:00:00 00:00:00 Only Unassigned, JESSICA [id number] [facility] 4.2.7.2.686 [id number] [id number] 2019-11-07 2019-11-07 Orders Doctor NATALI 1.2.840.114 [id number] 00:00:00 00:00:00 Only Unassigned, JESSICA [id number] [facility] 4.2.7.2.686 [id number] [id number] 2019-11-05 2019-11-05 Telephone [facility] 1.2.840.114 [id number] 00:00:00 00:00:00 Wondiful A [place] [id number] [place] [id number] Professio [phone] [address] 2019-10-30 2019-10-30 [facility] 1.2.840.114 [id number] 00:00:00 00:00:00 Wondiful [facility] [id number] [place] [id number] Professio [phone] [place] [address] Office Building [facility] 2019-10-30 2019-10-30 Orders Doctor NATALI 1.2.840.114 [id number] 00:00:00 00:00:00 Only Unassigned, JESSICA [id number] [facility] 4.2.7.2.686 [id number] [id number] 2019-10-22 2019-10-22 Telephone [facility] 1.2.840.114 [id number] 00:00:00 00:00:00 Wondiful A [facility] [id number] [place] [id number] Professio [phone] [place] [address] Office [address] One 2019-10-20 2019-10-20 Telephone Cl [facility] 1.2.840.114 [id number] 00:00:00 00:00:00 Wondiful A [facility] [id number] [place] 4.2.7.2.686 Professio [phone] [place] [address] Office [address] One 2019-10-15 2019-10-15 Telephone Cl [facility] 1.2.840.114 [id number] 00:00:00 00:00:00 Wondiful A [facility] [id number] [place] [id number] Professio [phone] [place] [address] Office [address] One 2019-10-08 2019-10-08 Telephone Cl [facility] 1.2.840.114 [id number] 00:00:00 00:00:00 Wondiful A [facility] [id number] [place] [id number] Professio [phone] [place] [address] [address] One 2019-08-29 2019-08-29 Office Vigil [facility] 1.2.840.114 [id number] 13:02:13 13:12:13 Visit Roberto AMBULATOR [id number] P Y 0.2.7.2.686 [id number] 300 2019-04-29 2019-04-29 Office Jeff BCTrish [id number] 10:53:12 12:18:36 Visit Kt AMBULATOR [id number] Rasheed Kermit Y 0.2.7.2.686 Lola [phone] [id number] Results This patient has no known results.
--- OUTSIDE RECORDS SUMMARY | 2020-07-08 10:44 | XMS REPORT | Summary of Care ---
:1990 Author Organization [facility] Address [address] [place] [address] Care Team Providers Name Role Phone Samanta Smallwood MD Primary Care Provider Samanta Waddell Insurance Hmo Encounter Details Date Type Department Care Team Description 07/05/2020 Orders Only [facility] Doctor Unassigned, No 301 [facility] Name [place] [phone] [place] [phone] Allergies Active Allergy Reactions Severity Noted Date Comments Latex Rash, Nausea and/or High 02/25/2011 Vomiting Sulfa (Sulfonamide Antibiotics) Rash 7 Sulfamethoxazole (Bulk) Hives, Nausea and/or 1 Vomiting, Rash Tegaderm Dressing Hives 01/16/2019 Vancomycin Itching, Rash 12/28/2018 documented as of this encounter (statuses as of 07/05/2020) Medications Medication Sig Dispensed Refills Start Date [...] as of this encounter (statuses as of 07/05/2020) Active Problems Problem Noted Date Pressure injury of left buttock, stage 4 07/01/[address] 03/25/2019 Bicornuate uterus 09/23/2018 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 Spicer at [facility] as a ch Scoliosis 05/29/2018 Rh negative state in antepartum period 01/21/2018 Overview: Rhogam at 28 weeks Rubella non-immune status, antepartum 01/21/2018 Overview: Address pp History of miscarriage 01/18/2018 Spina bifida, unspecified hydrocephalus presence, unsp ecified spinal 11/16/2016 region Wheelchair bound 11/16/2016 documented as of this encounter (statuses as of 07/05/2020) Resolved Problems Problem Noted Date Resolved Date [...] as of this encounter (statuses as of 07/05/2020) Immunizations Name Administration Dates Next Due HPV9 02/15/2017 04/18/2017 MMR 02/08/2019 TDAP 01/30/2019 documented as of this encounter Social History Tobacco Use Types Packs/Day Years Used Date Never Smoker Smokeless Tobacco: Never Used Alcohol Use Drinks/Week oz/Week Comments No Sex Assigned at Date Recorded Not on file documented as of this encounter Last Filed Vital Signs Not on filedocumented in this encounter Plan of Treatment Date Type Specialty Care Team Description 07/05/2020 Tomato Pulper Operator Visit Phlebotomy Ángel Marin MD [address] [place] [address] Pob, Erika Lab Main Health Maintenance Due Date Last Done Comments PAP SMEAR 02/16/2020 02/15/2017, 01/16/2017 INFLUENZA VACCINE (#1) 2020 Depression Screening 08/15/2020 08/15/2019 DTaP,Tdap,and Td Vaccines (2 01/30/2029 01/30/2019 - Td) PNEUMOCOCCAL 0-64 YEARS Aged Out No longe r eligible based COMBINED SERIES on patient's age to complete this to [facility] documented as of this encounter Procedures Procedure Name Priority Date/Time Associated Diagnosis Comme nts ASSIGNMENT OF BENEFITS Routine 07/05/2020 2:03 PM PALLIATIVE NURSE documented in this encounter Results Not on filedocumented in this encounter Additional Health Concerns Infection Onset Date Last Indicated Resolved Time Contact - ESBL 02/15/2017 02/15/2017 documented as of this encounter Insurance Payer Benefit Plan / Subscriber ID Effective Dates Phone Addre ss Type Group AETNA AETNA HMO [id number] 2018-Present HM O [facility] STAR [id number] 2017-Present Medicaid COMM PLAN - PLUS MANAGED MEDICAID [facility] TOTAL VISION [facility] TOTAL [id number] 2016-Present Vision VISION AETNA AETNA CHOICE [id number] 2018-Present POS POS II documented as of this encounter Advance Directives Name Relationship Healthcare Agent Communication Relationship Isabel Estrella Mother Health Care Agent [email or web address]
--- OUTSIDE RECORDS SUMMARY | 2020-07-08 10:44 | XMS REPORT | Summary of Care ---
:1990 Author Organization [facility] Address [address] [place] [address] Care Team Providers Name Role Phone Samanta Smallwood MD Primary Care Provider Samanta Waddell Insurance Hmo Encounter Details Date Type Department Care Team Description 05/17/2020 Orders Only [facility] Doctor Unassigned, No 301 [facility] Name [place] [phone] [place] [phone] Allergies Active Allergy Reactions Severity Noted Date Comments Latex Rash, Nausea and/or High 02/25/2011 Vomiting Sulfa (Sulfonamide Antibiotics) Rash 7 Sulfamethoxazole (Bulk) Hives, Nausea and/or 1 Vomiting, Rash Tegaderm Dressing Hives 01/16/2019 Vancomycin Itching, Rash 12/28/2018 documented as of this encounter (statuses as of 06/24/2020) Medications Medication Sig Dispensed Refills Start Date [...] as of this encounter (statuses as of 06/24/2020) Active Problems Problem Noted Date Pressure injury of left buttock, stage 4 07/01/[address] 03/25/2019 Bicornuate uterus 09/23/2018 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 Pituitary tumor 07/12/2018 Elevated alkaline phosphatase level 06/07/2018 Hyperprolactinemia 06/07/2018 Persistent headaches 06/07/2018 Iron deficiency anemia, unspecified iron deficiency an emia type 06/07/2018 Cholelithiasis 06/03/2018 Recurrent UTI 05/29/2018 Irregular menses 05/29/2018 Anemia, unspecified type 05/29/2018 Poor nutrition 05/29/2018 S/P SEARCH DIRECTOR shunt 05/29/2018 Self-catheterizes urinary bladder 05/29/2018 Overview: [...] as of this encounter (statuses as of 06/24/2020) Resolved Problems Problem Noted Date Resolved Date [...] as of this encounter (statuses as of 06/24/2020) Immunizations Name Administration Dates Next Due HPV9 [...] on patient's age to complete this to [facility] documented as of this encounter Procedures Procedure Name Priority Date/Time Associated Diagnosis Comme nts DME/SUPPLY JUSTIFICATION Routine 05/17/2020 12:01 AM CDT documented in this encounter Results Not on filedocumented in this encounter Additional Health Concerns Infection Onset Date Last Indicated Resolved Time Contact - ESBL 02/15/2017 02/15/2017 documented as of this encounter Insurance Payer Benefit Plan / Subscriber ID Effective Dates Phone Addre ss Type Group AETNA AETNA HMO [id number] 2018-Present HM O [facility] [place] STAR [id number] 2017-Present Medicaid COMM PLAN - PLUS MANAGED MEDICAID [facility] TOTAL VISION [facility] TOTAL [id number] 2016-Present Vision VISION documented as of this encounter Advance Directives Name Relationship Healthcare Agent Communication Relationship Isabel Estrella Mother Health Care Agent [email or web address]
--- OUTSIDE RECORDS SUMMARY | 2020-07-08 10:45 | XMS REPORT | Summary of Care ---
:1990 Author Organization [facility] Address [address] [place] [id number] Care Team Providers Name Role Phone Samanta Smallwood MD Primary Care Provider Samanta Waddell Insurance [employer] Reason for Visit Reason Comments LAB WORK Encounter Details Date Type Department Care Team Description 07/05/2020 Marketer Visit [facility] Ángel Marin MD [address] [place] [phone] Nonspecific finding on examination of ur ine (Primary Dx); Professional Office Pob, Adc Lab Main Malodorous urine Building Phlebotomy Lab Professional Office Building [address] [place] [address] , [address] [place] [phone] Allergies Active Allergy Reactions Severity Noted [...] unspecified type 05/29/2018 Poor nutrition 05/29/2018 S/P C 40A CREW CHIEF shunt 05/29/2018 Self-catheterizes urinary bladder 05/29/2018 Overview: spina bifida s/p augmentation cystoplasty and catheterizable channel by Dr. Spicer at [facility] as a ch Scoliosis 05/29/2018 [...] Assigned at Date Recorded Not on file COVID-19 Exposure Response Date Recorded In the last month, have you been in contact with No / Unsure 07/05/2020 2:05 PM EARLY CHILDHOOD EDUCATION SPECIALIST someone who was confirmed or suspected to have Coronavirus / COVID-19? documented as of this encounter Last Filed Vital Signs Not on filedocumented in this encounter Nursing Notes Zenobia Miller - 07/05/2020 2:30 PM CST Patient has been identified by and name and was provided with cup, antiseptic towelette, and clean catch instructions. 2 urine specimen(s) sent. 1 Unpreserved 1 Urine Culture Aptima tube Other urine documented in this encounter Plan of Treatment Name Type Priority Associated Diagnoses Date/Ti me URINALYSIS LAB Routine Nonspecific finding on 07/05 2:11 PM EARLY CHILDHOOD EDUCATION SPECIALIST examination of u rine Malodorous urine URINE CULTURE LAB Routine Nonspecific finding on 06/08 2:11 PM EARLY CHILDHOOD EDUCATION SPECIALIST examination of u rine Malodorous urine Name Type Priority Associated Diagnoses Order S chedule URINALYSIS LAB Routine Nonspecific finding on Expec carlos: 07/05/2020, examination of u rine Expires: 07/05/2021 Malodorous urine URINE CULTURE LAB Routine Nonspecific finding on Expe cted: 07/05/2020, examination of u rine Expires: 07/05/2021 Malodorous urine Health Maintenance Due Date Last Done Comments PAP SMEAR 02/16/2020 02/15/2017, 01/16/2017 INFLUENZA VACCINE (#1) 2020 Depression Screening 08/15/2020 08/15/2019 DTaP,Tdap,and Td Vaccines (2 01/30/2029 01/30/2019 - Td) PNEUMOCOCCAL 0-64 YEARS Aged Out No longe r eligible based COMBINED SERIES on patient's age to complete this to [facility] documented as of this encounter Results Not on filedocumented in this encounter Visit Diagnoses Diagnosis Nonspecific finding on examination of ur ine - Primary Other nonspecific finding on examination of urine Malodorous urine Other nonspecific finding on examination of urine documented in this encounter Additional Health Concerns Infection Onset Date Last Indicated Resolved Time Contact - ESBL 02/15/2017 02/15/2017 documented as of this encounter Insurance Payer Benefit Plan / Subscriber ID Effective Dates Phone Addre ss Type Group AETNA AETNA CHOICE [id number] 2018-Present POS POS II [facility] [id number] 2017-Present Medicaid COMM PLAN - PLUS MANAGED MEDICAID documented as of this encounter Advance Directives Name Relationship Healthcare Agent Communication Relationship Isabel Estrella Mother Health Care Agent [email or web address]
[2020-07-08] MEDS ORDERED: NA CHLORIDE 0.9% 500 ML ONE (12:27)
--- NOTE | 2020-07-08 12:58 | RAD REPORT ---
EXAM DESCRIPTION: CT - Stone Protocol - 07/08/2020 12:21 pm CLINICAL HISTORY: FLANK PAIN COMPARISON: Stone Protocol dated 07/28/2019 TECHNIQUE: Axial 5 mm thick images were obtained without oral or IV contrast. The [id number] span s the entirety of the system including uppermost abdomen and lung bases. All CT scans are performed using dose optimization technique as appropriate and may include automated exposure control or mA/KV adjustment according to patient size. FINDINGS: No hydronephrosis is present and no obstructing ureteral calculi. Calcification in the low er pole of the left kidney has not change from July 2019. Well filled urinary bladder shows no bl adder calculi. Air within the lumen of the urinary bladder may be secondary to in- and out catheteriz ation. Infection is a possibility as well and needs correlation with UA findings. No bladder wall thi ckening or mass. No suspicious renal masses. Isodense masses and pyelonephritis are not excluded on a stone protocol CT scan. No significant adrenal finding. Imaged portions of the liver, spleen and pancreas show no suspicious findings on non-contrast imaging . Cholelithiasis is present without acute cholecystitis. No biliary tree dilatation. No dilated bowel loops or bowel wall thickening. Moderately large stool volume fills the colon. No ac tive colon process seen. No uterine abnormality seen. Ovaries are isodense to the adjacent non-opacif ied bowel. Primary ovarian process is not suspected. No mass or bulky lymphadenopathy. Patient has nonspecific left inguinal lymph nodes. These are stable . Patient has chronic left decubitus ulcer changes involving the posterior left ischium. This is a st able appearance. No acute bone finding is seen. There is pronounced scoliosis and spina bifida change s. No new process. MANAGER ER shunt tube is in place. IMPRESSION: No hydronephrosis, obstructing calculus or acute finding identifiable. Air is present within the lumen of a well filled urinary bladder. This is most likely from an in and out catheterization procedure. Air from a gas-forming infection is less likely but not excluded. Mitesh elation can be made with UA findings. No bladder wall abnormality seen. Isodense masses and pyelonephritis are not excluded on stone protocol technique.
[2020-07-08 14:37] LABS: Urine Blood NEGATIVE (NEG); Urine Glucose NEGATIVE (NEG); Urine Protein NEGATIVE (NEG); Urine Specific Gravity 1.015 (1.005-1.030)
[2020-07-08 14:46] LABS: Urine Bacteria >50 /HPF (<20); Urine RBC <5 /HPF (NONE SEEN)
[2020-07-08 15:33] LABS: Absolute Lymphocytes (CBC) 2.4 K/uL (0.7-4.9); Basophils % 0.6 % (0-1.3); Hematocrit 32.7 % (36.0-45.0); MPV 8.5 fL (7.6-11.3); RBC Red Blood Cell Count 3.69 M/uL (3.86-4.86)
[2020-07-08 15:34] LABS: Protime INR 1.24
--- NOTE | 2020-07-08 15:36 | ER ---
Nurse's Notes [facility] Name: Shari Estrella Age: 30 yrs Sex: Female : 1990 Arrival Date: 07/08/2020 Time: 10:42 Bed 28 Private MD: Diagnosis: Acute tubulo-interstitial nephritis Presentation: 07/08 11:12 Chief complaint: Patient states: Spina Bifida pt, self catheterizes. Had a urine test ca1 with PCP 2-3 days ago. PCP says she has a UTI and needs to have IV antibiotics because PO abx does not work. Denies fever. Unable to feel burning. Reports strong urine smell and low back pain at the kidney area. Coronavirus screen: Client denies travel out of the [place] in the last 14 days. At this time, the client does not indicate any symptoms associated with coronavirus-19. Ebola Screen: Patient negative for fever greater than or equal to 101.5 degrees Fahrenheit, and additional compatible Ebola Virus Disease symptoms Patient denies exposure to infectious person. Patient denies travel to an Ebola-affected area in the 21 days before illness onset. No symptoms or risks identified at this time. Initial Sepsis Screen: Does the patient meet any 2 criteria? No. Patient's initial sepsis screen is negative. Does the patient have a suspected source of infection? No. Patient's initial sepsis screen is negative. Risk Assessment: Do you want to hurt yourself or someone else? Patient reports no desire to harm self or others. Onset of symptoms was July 08, 2020. 11:12 Method Of Arrival: Wheelchair ca1 11:12 Acuity: SAMAN 3 ca1 Triage Assessment: 11:28 General: Appears in no apparent distress. comfortable, Behavior is calm, cooperative, ca1 appropriate for age. Pain: Complains of pain in low back area and mid back area Pain began 2-3 days ago. EENT: No signs and/or symptoms were reported regarding the EENT system. Neuro: Level of Consciousness is awake, alert, obeys commands, Oriented to person, place, time, situation. Cardiovascular: Heart tones S1 S2 present Capillary refill < 3 seconds Patient's skin is warm and dry. Respiratory: Airway is patent Respiratory effort is even, unlabored, Respiratory pattern is regular, symmetrical, Breath sounds are clear bilaterally. GI: Abdomen is flat, non-distended, Bowel sounds present X 4 quads. Abd is soft and non tender X 4 quads. : Reports Urine smells strong. Derm: Skin is intact, is healthy with good turgor, Skin is pink, warm \T\ dry. Musculoskeletal: Circulation, motion, and sensation intact. Capillary refill < 3 seconds. 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 - Social history:: Smoking status: Patient denies any tobacco usage or history of. Screenin:31 Abuse screen: Denies threats or abuse. Denies injuries from another. Nutritional ca1 screening: No deficits noted. Tuberculosis screening: No symptoms or risk factors identified. Fall Risk Secondary diagnosis (15 points) impaired mobility, IV access (20 points). Ambulatory Aid- None/Bed Rest/Nurse Assist (0 pts). Gait- Impaired (20 pts.). Total Aburto Fall Scale indicates High Risk Score (45 or more points). Fall prevention measures have been instituted. Side Rails Up X 2 As available patient and family educated on Fall Prevention Program and Strategies. Assessment: :31 Reassessment: see triage notes. ca1 11:50 General: Appears in no apparent distress. uncomfortable, Behavior is calm, cooperative, zb appropriate for age, Reports feeling ill for. Pain: Complains of pain in back and mid back area and low back area. Neuro: Level of Consciousness is awake, alert, obeys commands, Oriented to person, place, time, situation. Cardiovascular: Capillary refill < 3 seconds in bilateral fingers Patient's skin is warm and dry. Respiratory: Airway is patent Respiratory effort is even, unlabored, Respiratory pattern is regular, symmetrical, Breath sounds are clear bilaterally. GI: Abdomen is round non-distended. : Reports hx: of spina bifida. pt self catheterizes, pt back pain. states that she had UTI symptom before and has experience this same issue. EENT: No signs and/or symptoms were reported regarding the EENT system. Derm: Decubitus located on sacrum. Musculoskeletal: due to spina bifida, ataxia is noted in BLE. 12:50 Reassessment: Patient appears in no apparent distress at this time. Patient and/or zb family updated on plan of care and expected duration. Pain level reassessed. Patient is alert, oriented x 3, equal unlabored respirations, skin warm/dry/pink. 13:50 Reassessment: Patient appears in no apparent distress at this time. Patient and/or zb family updated on plan of care and expected duration. Pain level reassessed. Patient is alert, oriented x 3, equal unlabored respirations, skin warm/dry/pink. 14:50 Reassessment: Patient appears in no apparent distress at this time. Patient and/or zb family updated on plan of care and expected duration. Pain level reassessed. Patient is alert, oriented x 3, equal unlabored respirations, skin warm/dry/pink. 15:50 Reassessment: Patient appears in no apparent distress at this time. Patient and/or zb family updated on plan of care and expected duration. Pain level reassessed. Patient is alert, oriented x 3, equal unlabored respirations, skin warm/dry/pink. 16:50 Reassessment: Patient appears in no apparent distress at this time. Patient and/or zb family updated on plan of care and expected duration. Pain level reassessed. Patient is alert, oriented x 3, equal unlabored respirations, skin warm/dry/pink. 17:50 Reassessment: Patient appears in no apparent distress at this time. Patient and/or zb family updated on plan of care and expected duration. Pain level reassessed. Patient is alert, oriented x 3, equal unlabored respirations, skin warm/dry/pink. pt resting, in bed eating . 18:50 Reassessment: Patient appears in no apparent distress at this time. Patient and/or zb family updated on plan of care and expected duration. Pain level reassessed. Patient is alert, oriented x 3, equal unlabored respirations, skin warm/dry/pink. 20:21 Reassessment: Patient appears in no apparent distress at this time. Patient and/or jd3 family updated on plan of care and expected duration. Pain level reassessed. Patient is alert, oriented x 3, equal unlabored respirations, skin warm/dry/pink. awaiting admission. 23:12 Reassessment: Patient appears in no apparent distress at this time. Patient and/or jd3 family updated on plan of care and expected duration. Pain level reassessed. Patient is alert, oriented x 3, equal unlabored respirations, skin warm/dry/pink. charting continued in [facility]. Vital Signs: 11:12 BP 125 / 77; Pulse 91; Resp 17 S; Temp 98.9(O); Pulse Ox 100% on R/A; Weight 33.57 kg ca1 (R); 12:30 BP 122 / 80; Pulse 96; Resp 18; Pulse Ox 100% on R/A; zb 19:00 BP 124 / 82; Pulse 75; Resp 18; Pulse Ox 100% on R/A; zb 20:22 BP 125 / 76; Pulse 108; Resp 16 S; Pulse Ox 100% on R/A; jd3 21:25 BP 113 / 80; Pulse 100; Resp 18; Pulse Ox 100% on R/A; zb 23:12 BP 98 / 98; Pulse 102; Resp 17 S; Pulse Ox 100% on R/A; jd3 ED Course: 10:42 Patient arrived in ED. as 10:55 Joel Salmon PA is PHCP. cp 10:55 Eric Celestin MD is Attending Physician. cp 11:15 Missed attempt(s): 22 gauge in left antecubital area. Bleeding controlled, band aid ca1 applied, catheter tip intact. 11:23 Silvia oPrtillo, CHATA is Primary Nurse. ca1 11:26 Triage completed. ca1 11:28 Arm band placed on right wrist. ca1 11:31 Patient has correct armband on for positive identification. Placed in gown. Bed in low ca1 position. Call light in reach. Side rails up X2. 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 Pulse ox on. NIBP on. Warm blanket given. 12:22 CT Stone Protocol In Process Unspecified. EDMS 15:00 Inserted saline lock: 20 gauge in left EJ, using aseptic technique. Blood collected. zb placed by Joel WYLIE. 15:31 Tristen Siu is Hospitalizing Provider. cp 23:17 No provider procedures requiring assistance completed. zb 23:18 Patient admitted, IV remains in place. zb Administered Medications: 15:10 Drug: NS 0.9% 500 ml Route: IV; Rate: bolus; Site: left jugular; zb 15:40 Follow up: Response: No adverse reaction; IV Status: Completed infusion; IV Intake: zb 500ml 15:10 Drug: morphine 2 mg {Note: RASS 0.} Route: IVP; Site: left jugular; zb 15:30 Follow up: Response: No adverse reaction zb 16:00 Follow up: Response: No adverse reaction; Pain is unchanged, physician notified zb 17:03 Drug: fentaNYL (PF) 25 mcg Route: IVP; Site: left jugular; zb 17:30 Follow up: Response: No adverse reaction; Pain is decreased zb 17:04 Drug: Meropenem 20 mg/kg Route: IV; Rate: calculated rate; Site: left jugular; zb 18:00 Follow up: Response: No adverse reaction; IV Status: Completed infusion zb 18:04 Follow up: Response: No adverse reaction; IV Intake: 100ml zb 18:11 Drug: fentaNYL (PF) 25 mcg {Note: RASS 0.} Route: IVP; Site: left jugular; zb 18:30 Follow up: Response: No adverse reaction zb 20:40 Drug: morphine 2 mg Route: IVP; Site: left jugular; zb 21:20 Follow up: Response: No adverse reaction zb Intake: 15:40 IV: 500ml; Total: 500ml. zb 18:04 IV: 100ml; Total: 600ml. zb Outcome: 15:35 Decision to Hospitalize by Provider. cp 23:18 Admitted to ER Hold. Please see [facility] for further documentation. zb 23:18 Condition: stable 23:18 Instructed on the need for admit, Demonstrated understanding of instructions. 1204 16:40 Patient left the ED. iw Signatures: Dispatcher [employer] Yuliya Matos Irene, RN RN iw Page, Corey, PA PA cp Davies, Jonathon, RN RN jSilvia Clark RN RN ca1 Liz Marsh RN RN zb Corrections: (The following items were deleted from the chart) 12 11:33 11:31 Pulse ox on. NIBP on. ca1 ca1 20:23 20:22 BP 125 / 76; Pulse 98bpm; Resp 16bpm; Spontaneous; Pulse Ox 100% RA; jd3 jd3 23:18 14:00 Inserted saline lock: 20 gauge in left EJ, using aseptic technique. Blood zb collected. placed by Joel brumfield
--- NOTE | 2020-07-08 15:36 | EDPHYS ---
Physician Documentation [facility] Name: Shari Estrella Age: 30 yrs Sex: Female : 1990 Arrival Date: 07/08/2020 Time: 10:42 Bed 28 Private MD: ED Physician Eric Celestin HPI: 07/08 11:29 This 30 yrs old Female presents to ER via Wheelchair with complaints of cp Urinary Problem. 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 - Social history:: Smoking status: Patient denies any tobacco usage or history of. ROS: 11:35 Constitutional: Negative for fever, poor PO intake. cp 11:35 Respiratory: Negative for cough, shortness of breath, wheezing. cp 11:35 Abdomen/GI: Negative for vomiting, diarrhea, constipation. 11:35 Back: Positive for pain at rest, of the mid back area. 11:35 : Positive for foul smelling urine. 11:35 Neuro: Negative for altered mental status, headache, weakness. 11:35 All other systems are negative. Exam: 11:40 Constitutional: The patient appears in no acute distress, alert, awake, non-toxic. cp 11:40 Head/Face: Normocephalic, atraumatic. cp 11:40 Eyes: Periorbital structures: appear normal, Conjunctiva: normal, no exudate, no injection, Lids and lashes: appear normal, bilaterally. 11:40 ENT: External ear(s): are unremarkable, Nose: is normal, Posterior pharynx: Airway: no evidence of obstruction, patent. 11:40 Chest/axilla: Inspection: normal, Palpation: is normal, no crepitus, no tenderness. 11:40 Cardiovascular: Rate: normal, Rhythm: regular. 11:40 Respiratory: the patient does not display signs of respiratory distress, Respirations: normal, no use of accessory muscles, no retractions, labored breathing, is not present, Breath sounds: are clear throughout, no decreased breath sounds, no stridor, no wheezing. 11:40 Abdomen/GI: Inspection: abdomen appears normal, Palpation: abdomen is soft and non-tender, in all quadrants. 11:40 Back: CVA tenderness, that is mild, is noted bilaterally. 11:40 Neuro: Orientation: to person, place \T\ time. Mentation: is normal. Vital Signs: 11:12 BP 125 / 77; Pulse 91; Resp 17 S; Temp 98.9(O); Pulse Ox 100% on R/A; Weight 33.57 kg ca1 (R); 12:30 BP 122 / 80; Pulse 96; Resp 18; Pulse Ox 100% on R/A; zb 19:00 BP 124 / 82; Pulse 75; Resp 18; Pulse Ox 100% on R/A; zb 20:22 BP 125 / 76; Pulse 108; Resp 16 S; Pulse Ox 100% on R/A; jd3 21:25 BP 113 / 80; Pulse 100; Resp 18; Pulse Ox 100% on R/A; zb 23:12 BP 98 / 98; Pulse 102; Resp 17 S; Pulse Ox 100% on R/A; jd3 Procedures: 15:25 Peripheral line: by aseptic technique a peripheral line was placed in the left external cp jugular vein. MDM: 11:20 Patient medically screened. 07/08 11:26 Order name: Protime (+inr); Complete Time: 16:15 07/08 16:15 Interpretation: Abnormal. 07/08 11:26 Order name: Urine Culture 07/08 11:26 Order name: Basic Metabolic Panel; Complete Time: 16:15 07/08 16:15 Interpretation: Normal except: BUN 5; CRE 0.23. 07/08 11:26 Order name: Blood Culture Adult (2) 07/08 11:26 Order name: CBC with Diff; Complete Time: 15:52 07/08 15:52 Interpretation: Normal except: WBC 11.2; RBC 3.69; HGB 10.9; HCT 32.7; MCV 88.5. 07/08 11:26 Order name: Lactate; Complete Time: 16:15 07/08 16:15 Interpretation: Reviewed. 07/08 11:26 Order name: LFT's; Complete Time: 16:15 07/08 16:15 Interpretation: Normal except: ALB 3.1; GLOB 4.5; A/G 0.7. 07/08 11:26 Order name: Procalcitonin; Complete Time: 17:02 07/08 17:02 Interpretation: Reviewed. 07/08 11:26 Order name: Urine Microscopic Only; Complete Time: 15:16 07/08 15:16 Interpretation: Normal except: UWBC 10-20; UBACT >50. 07/08 13:51 Order name: Urine Dipstick--Ancillary (enter results); Complete Time: 15:16 1 07/08 16:16 Interpretation: Normal except: U NIT POSITIVE; UESTR TRACE. 07/08 13:51 Order name: Urine --Ancillary (enter results); Complete Time: 15:16 em1 07/09 06:16 Order name: CBC with Automated Diff EDMS 07/09 06:26 Order name: Basic Metabolic Panel EDMS 07/09 06:26 Order name: Phosphorus EDMS 07/08 11:26 Order name: Cath; Complete Time: 15:06 07/08 11:26 Order name: Accucheck; Complete Time: 17:12 07/08 11:26 Order name: Cardiac monitoring; Complete Time: 16:16 07/08 11:26 Order name: IV Saline Lock - Large Bore; Complete Time: 15:06 07/08 11:26 Order name: Labs collected and sent; Complete Time: 15:06 07/08 11:29 Order name: CT Stone Protocol; Complete Time: 13:00 07/08 13:01 Interpretation: Report reviewed. 07/09 06:26 Order name: Magnesium EDMS 07/09 10:06 Order name: CORONAVIRUS EDMS 07/09 11:59 Order name: Gram Stain--Aerobic Bottle EDMS 07/09 11:59 Order name: Gram Stain--Aerobic Bottle EDMS 07/09 14:47 Order name: Gram Stain--Anaerobic Bottle EDMS 07/08 11:26 Order name: O2 Per Protocol; Complete Time: 11:32 cp 07/08 11:26 Order name: O2 Sat Monitoring; Complete Time: 11:32 cp 07/08 11:26 Order name: Urine Dipstick-Ancillary (obtain specimen); Complete Time: 13:48 cp 07/08 11:26 Order name: Urine Test (obtain specimen); Complete Time: 13:52 cp Administered Medications: 15:10 Drug: NS 0.9% 500 ml Route: IV; Rate: bolus; Site: left jugular; zb 15:40 Follow up: Response: No adverse reaction; IV Status: Completed infusion; IV Intake: zb 500ml 15:10 Drug: morphine 2 mg {Note: RASS 0.} Route: IVP; Site: left jugular; zb 15:30 Follow up: Response: No adverse reaction zb 16:00 Follow up: Response: No adverse reaction; Pain is unchanged, physician notified zb 17:03 Drug: fentaNYL (PF) 25 mcg Route: IVP; Site: left jugular; zb 17:30 Follow up: Response: No adverse reaction; Pain is decreased zb 17:04 Drug: Meropenem 20 mg/kg Route: IV; Rate: calculated rate; Site: left jugular; zb 18:00 Follow up: Response: No adverse reaction; IV Status: Completed infusion zb 18:04 Follow up: Response: No adverse reaction; IV Intake: 100ml zb 18:11 Drug: fentaNYL (PF) 25 mcg {Note: RASS 0.} Route: IVP; Site: left jugular; zb 18:30 Follow up: Response: No adverse reaction zb 20:40 Drug: morphine 2 mg Route: IVP; Site: left jugular; zb 21:20 Follow up: Response: No adverse reaction zb Disposition: 07/10 08:32 Co-signature as Attending Physician, Eric Celestin MD I agree with the assessment and kdr plan of care. Disposition: 07/08/20 15:35 Hospitalization ordered by Tristen Siu for Inpatient Admission. Preliminary diagnosis is Acute tubulo-interstitial nephritis. - Bed requested for Telemetry/MedSurg (Inpatient). - Status is Inpatient Admission. iw - Condition is Stable. - Problem is new. - Symptoms have improved. Signatures: Dispatcher [employer] EDMS Shilpa Aly RN CHATA Nia Arceo, RN RN dw Eric Celestin MD MD kdr Williams, Irene RN CHATA iw Joel Salmon PA PA cp Silvia Portillo RN RN [facility] [place] Liz Marsh RN RN zb Corrections: (The following items were deleted from the chart) 07/08 16:01 16:00 Peripheral line: by aseptic technique a peripheral line was placed in the left cp external jugular vein, cp 19:41 15:35 Hospitalization Ordered by Tristen Siu for Inpatient Admission. Preliminary mw diagnosis is Acute tubulo-interstitial nephritis. Bed requested for Telemetry/MedSurg (Inpatient). Status is Inpatient Admission. Condition is Stable. Problem is new. Symptoms have improved. cp 07/09 13:43 12 19:41 07/08/2020 15:35 Hospitalization Ordered by Tristen Siu for Inpatient dw Admission. Preliminary diagnosis is Acute tubulo-interstitial nephritis. Bed requested for [facility] ER HOLD. Status is Inpatient Admission. Condition is Stable. Problem is new. Symptoms have improved. mw 07/09 16:40 13:43 07/08/2020 15:35 Hospitalization Ordered by Tristen Siu for Inpatient iw Admission. Preliminary diagnosis is Acute tubulo-interstitial nephritis. Bed requested for Telemetry/MedSurg (Inpatient). Status is Inpatient Admission. Condition is Stable. Problem is new. Symptoms have improved. dw
[2020-07-08 15:54] LABS: ALT/SGPT 23 U/L (12-78); AST/SGOT 21 U/L (15-37); Albumin 3.1 g/dL (3.4-5.0); Alkaline Phosphatase 105 U/L (45-117); BUN Blood Urea Nitrogen 5 mg/dL (7-18); Bicarbonate 24 mmol/L (21-32); Bilirubin Direct 0.1 mg/dL (0-0.2); Bilirubin Total 0.6 mg/dL (0.2-1.0); Glucose Level 92 mg/dL (74-106); Potassium 3.8 mmol/L (3.5-5.1); Protein, Total 7.6 g/dL (6.4-8.2); Sodium Level 138 mmol/L (136-145)
--- NOTE | 2020-07-08 16:13 | P.HP ---
Certification for Inpatient Patient admitted to: Inpatient With expected LOS: >2 Midnights Practitioner: I am a practitioner with admitting privileges, knowledge of patient current condition, hospital course, and medical plan of care. 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 coli. Patient reports 1 week history of malaise, intermittent nausea and vomits and loss of appetite. She also reported bilateral flank pain. CT abdomen and pelvis done in the ED suggests acute pyelonephritis. Lactate is negative. UA in the ED suggest the presence of UTI. Patient is hospitalized for further management Allergies adhesive tape Allergy (Verified 07/29/19 01:10) Rash Latex, Natural Rubber Allergy (Verified 07/29/19 01:10) Rash Sulfa (Sulfonamide Antibiotics) Allergy (Verified 07/29/19 01:10) Hives/Rash sulfamethoxazole [From Bactrim] Allergy (Verified 07/29/19 01:10) Hives trimethoprim [From Bactrim] Allergy (Verified 07/29/19 01:10) Hives vancomycin Allergy (Verified 07/29/19 01:10) Hives/Rash Adhesives Allergy (Uncoded 07/08/17 16:36) Unknown Home Medications: Atenolol [Tenormin] 100 mg PO DAILY 02/17/20 Cefdinir [Omnicef] 300 mg PO BID #20 capsule 02/17/20 Diphenhydramine [Benadryl*] 50 mg PO BEDTIME PRN PRN 02/17/20 Nitrofuran Macro [Macrobid*] 100 mg PO BID #40 cap 02/17/20 Oxycodone HCl/Acetaminophen [Oxycodone-Acetaminophen 10-325] 1 each PO Q6HP PRN 02/17/20 Sertraline HCl [Zoloft] 20 mg PO DAILY 02/17/20 Tizanidine HCl 4 mg PO TIDP PRN MDD 12 02/17/20 - Past Medical/Surgical History Diabetic: No -: Stage III decubitus ulcer -: Spina Bifida -: MRSA -: scoliosis -: HTN -: GERD -: Osteomyelitis -: Multiple back surgeries -: Right great toe amputated -: bowel surgery cecostomy -: Suprapubic stoma -: 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 Physical Examination - Physical Exam General: Alert, In no apparent distress HEENT: Mucous membr. moist/pink Neck: Supple, JVD not distended Respiratory: Clear to auscultation bilaterally, Normal air movement Cardiovascular: No edema, Regular rate/rhythm, Normal S1 S2 Gastrointestinal: Normal bowel sounds, Soft and benign, No tenderness, Other (Left costovertebral angle tenderness.) Musculoskeletal: No swelling, No tenderness, Scoliosis (Marked) Integumentary: No rashes, No erythema Neurological: Other (Nonfocal.) - Studies Laboratory Data (last 24 hrs) 07/08/20 15:00: WBC 11.2 H, Hgb 10.9 L, Hct 32.7 L, Plt Count 311 07/08/20 15:00: Sodium 138, Potassium 3.8, BUN 5 L, Creatinine 0.23 L, Glucose 92, Total Bilirubin 0.6, AST 21, ALT 23, Alkaline Phosphatase 105 07/08/20 15:00: PT 14.6 H, INR 1.24 Assessment and Plan - Problems (Diagnosis) (1) Acute pyelonephritis Current Visit: Yes Status: Acute (2) Infection due to ESBL-producing Escherichia coli Current Visit: Yes Status: Acute (3) Spina bifida Onset Date: 06/01/17 Current Visit: No Status: Chronic Qualifiers: - Plan Admit to the medical floor. She does not meet criteria for sepsis. Hydrate with IV normal saline. Given recent urine culture 07/05/2020 growing ESBL E. coli, will treat with IV meropenem. Follow urine culture and blood cultures. Resume home medications-antihypertensives and oxycodone. - Advance Directives Does patient have a Living Will: No Does patient have a Durable POA for Healthcare: No
[2020-07-08] MEDS ORDERED: FENTANYL CITR 100 MCG/2 ML ONE ×2 (16:36→18:23)
[2020-07-08] MEDS ORDERED: NA CHLORIDE 0.9% IV ONE (17:00)
[2020-07-08] MEDS ORDERED: MEROPENEM IV ONE (17:00)
[2020-07-08] MEDS: NA CHLORIDE 0.9% 1,000 ML IV SCH (20:42)
[2020-07-08] MEDS ORDERED: Meropenem 1000 MG/VIAL IV SCH (20:42)
[2020-07-08] MEDS: HEPARIN 5000 UNIT/ML 1 ML VIAL SQ SCH (20:42)
[2020-07-08] MEDS ORDERED: ONDANSETRON 4 MG/2 ML VIAL IV PRN (20:42)
[2020-07-08] MEDS ORDERED: ACETAMINOPHEN 500 MG TAB PO PRN (20:42)
[2020-07-08] MEDS ORDERED: MORPHINE 2 MG/ML SYR ONE ×2 (21:07→22:26)
[2020-07-08] MEDS: MORPHINE 2 MG/ML SYR IV PRN (21:10)
[2020-07-08] MEDS ORDERED: HEPARIN 5000 UNIT/ML 1 ML VIAL ONE (21:47)
[2020-07-08] MEDS ORDERED: NA CHLORIDE 0.9% 1,000 ML ONE (21:47)
[2020-07-09] MEDS ORDERED: MORPHINE 4 MG/ML SYR IV ONE (00:18)
[2020-07-09] MEDS ORDERED: MORPHINE 4 MG/ML SYR ONE (00:39)
[2020-07-09] MEDS: HEPARIN 5000 UNIT/ML 1 ML VIAL SQ SCH ×4 (01:00→17:56)
[2020-07-09] MEDS ORDERED: HEPARIN 5000 UNIT/ML 1 ML VIAL ONE ×2 (01:35→09:10)
[2020-07-09] MEDS ORDERED: DIPHENHYDRAMINE 25 MG TAB/CAP PO PRN (01:48)
[2020-07-09] MEDS ORDERED: DIPHENHYDRAMINE 25 MG TAB/CAP ONE (02:09)
[2020-07-09] MEDS ORDERED: HEPARIN 5000 UNIT/ML 1 ML VIAL SQ ONE (03:00)
[2020-07-09] MEDS: MORPHINE 2 MG/ML SYR IV PRN ×4 (05:17→22:03)
[2020-07-09] MEDS ORDERED: MORPHINE 2 MG/ML SYR ONE ×2 (05:31→09:12)
[2020-07-09 06:03] LABS: Absolute Lymphocytes (CBC) 2.7 K/uL (0.7-4.9); Basophils % 0.8 % (0-1.3); Hematocrit 26.5 % (36.0-45.0); Lymphocytes % 35.9 % (15.3-44.8); MPV 8.2 fL (7.6-11.3); RBC Red Blood Cell Count 2.99 M/uL (3.86-4.86)
[2020-07-09 06:16] LABS: BUN Blood Urea Nitrogen 5 mg/dL (7-18); Bicarbonate 25 mmol/L (21-32); Glucose Level 91 mg/dL (74-106); Magnesium 1.9 mg/dL (1.8-2.4); Phosphorus 3.3 mg/dL (2.5-4.9); Potassium 3.7 mmol/L (3.5-5.1); Sodium Level 142 mmol/L (136-145)
[2020-07-09] MEDS ORDERED: POTASSIUM 25 MEQ EFFERV TAB PO ONE (07:21)
[2020-07-09] MEDS ORDERED: NA CHLORIDE 0.9% 1,000 ML ONE (08:57)
[2020-07-09] MEDS: NA CHLORIDE 0.9% 1,000 ML IV SCH (09:02)
[2020-07-09] MEDS: Meropenem 500 MG/100 ML IVPB IV SCH ×2 (09:03→22:06)
[2020-07-09] MEDS ORDERED: POTASSIUM 25 MEQ EFFERV TAB ONE (09:10)
[2020-07-09] MEDS ORDERED: Meropenem 500 MG/100 ML BAG ONE (09:11)
--- NOTE | 2020-07-09 13:16 | P.PN ---
Subjective Date of Service: 07/09/20 Chief Complaint: UTI Patient is complaining of back pain which is chronic. She has had no fever and does not look sick. Physical Examination - Vital Signs Temperature: 99.2 F Blood Pressure: 114/76 Pulse: 79 Respirations: 16 Pulse Ox (%): 99 - Physical Exam General: Alert, In no apparent distress Neck: Supple Respiratory: Clear to auscultation bilaterally, Normal air movement Cardiovascular: No edema, Regular rate/rhythm, Normal S1 S2, Other (Tachycardia) Gastrointestinal: Normal bowel sounds, Soft and benign, No tenderness Musculoskeletal: No swelling Integumentary: No rashes, No erythema Neurological: Other (Nonfocal) - Studies Laboratory Data (last 24 hrs) 07/08/20 15:00: WBC 11.2 H, Hgb 10.9 L, Hct 32.7 L, Plt Count 311 07/08/20 15:00: Sodium 138, Potassium 3.8, BUN 5 L, Creatinine 0.23 L, Glucose 92, Total Bilirubin 0.6, AST 21, ALT 23, Alkaline Phosphatase 105 07/08/20 15:00: PT 14.6 H, INR 1.24 Microbiology Data (last 24 hrs): 07/08/20 13:40 Catheterized Urine - Final Assessment And Plan - Current Problems (Diagnosis) (1) Acute pyelonephritis Current Visit: Yes Status: Acute (2) Infection due to ESBL-producing Escherichia coli Current Visit: Yes Status: Acute (3) Spina bifida Onset Date: 06/01/17 Current Visit: No Status: Chronic Qualifiers: (4) Positive blood culture Current Visit: Yes Status: Acute - Plan Continue IV meropenem. Repeat blood culture given 1 blood culture bottle 1 g positive cocci. This could be secondary to skin contamination. Follow urine culture and blood cultures. Continue antihypertensives. Continue home dose of oxycodone for chronic pain. Considering PICC line once repeat blood culture shows no bacteremia.
[2020-07-09] MEDS: HYDROCODONE/APAP 10/325 TAB PO PRN ×2 (13:21→19:10)
[2020-07-09] MEDS ORDERED: HYDROCODONE/APAP 10/325 TAB ONE (13:35)
[2020-07-09] MEDS: ZOLPIDEM TARTRATE 5 MG TABLET PO SCH (23:26)
[2020-07-10] MEDS: HEPARIN 5000 UNIT/ML 1 ML VIAL SQ SCH ×3 (01:29→17:43)
[2020-07-10] MEDS: HYDROCODONE/APAP 10/325 TAB PO PRN ×4 (01:29→20:29)
[2020-07-10 02:46] VITALS: O2SAT 97
[2020-07-10 06:31] LABS: Basophils % 0.6 % (0-1.3); Hematocrit 25.8 % (36.0-45.0); Lymphocytes % 35.3 % (15.3-44.8); MPV 7.8 fL (7.6-11.3); RBC Red Blood Cell Count 2.93 M/uL (3.86-4.86)
[2020-07-10 06:48] LABS: BUN Blood Urea Nitrogen 5 mg/dL (7-18); Bicarbonate 27 mmol/L (21-32); Glucose Level 102 mg/dL (74-106); Potassium 3.5 mmol/L (3.5-5.1); Sodium Level 143 mmol/L (136-145)
--- NOTE | 2020-07-10 08:44 | RAD REPORT ---
EXAM DESCRIPTION: RAD - Chest Single View - 07/10/2020 12:48 am CLINICAL HISTORY: PICC placement TECHNIQUE: Single frontal view of the chest is submitted. COMPARISON: 08/20/2019 FINDINGS: Heart: The cardiothoracic silhouette is within normal limits. Lungs: No focal consolidation. Mediastinum: Unremarkable Pleura: No appreciable effusion. No pneumothorax. Bones: Marked scoliosis. Upper abdomen: Unremarkable Other: Left upper extremity PICC tip projects over the proximal superior vena cava. Right-sided UNIVERSITY CONTROLLER sh unt catheter tubing. IMPRESSION: Left upper extremity PICC tip projects over the proximal superior vena cava. Electronically signed by: Elda Suarez MD 07/10/2020 12:58 AM COLLEGE ASSOCIATE Due to temporary technical issues with the PACS/Fluency reporting system, reports are being signed by the in house radiologists without review as a courtesy to insure prompt reporting. The interpreting radiologist is fully responsible for the content of the report.
[2020-07-10] MEDS: Meropenem 500 MG/100 ML IVPB IV SCH (09:00)
[2020-07-10] MEDS ORDERED: Meropenem 500 MG/100 ML IVPB IV SCH (10:30)
[2020-07-10] MEDS: Meropenem 500 MG in NA CHLORIDE 0.9% 100 ML IV SCH ×2 (10:47→20:29)
[2020-07-10] MEDS: MORPHINE 2 MG/ML SYR IV PRN (12:03)
--- NOTE | 2020-07-10 16:54 | P.PN ---
Subjective Date of Service: 07/10/20 Chief Complaint: UTI Patient has no complain today. PICC line placed for outpatient antibiotics yesterday. She has had no fever and does not look sick. Physical Examination - Vital Signs Temperature: 98.0 F Blood Pressure: 127/77 Pulse: 92 Respirations: 18 Pulse Ox (%): 100 - Physical Exam General: Alert, In no apparent distress Respiratory: Clear to auscultation bilaterally, Normal air movement Cardiovascular: No edema Gastrointestinal: Soft and benign, No tenderness Neurological: Other (Nonfocal) - Studies Microbiology Data (last 24 hrs): 07/08/20 13:40 Catheterized Urine [place] Count - Final >100,000 CFU/ML. 07/08/20 13:40 Catheterized Urine - Final Escherichia Coli Esbl Assessment And Plan - Current Problems (Diagnosis) (1) Acute pyelonephritis Current Visit: Yes Status: Acute (2) Infection due to ESBL-producing Escherichia coli Current Visit: Yes Status: Acute (3) Spina bifida Onset Date: 06/01/17 Current Visit: No Status: Chronic Qualifiers: (4) Positive blood culture Current Visit: Yes Status: Acute - Plan Continue IV meropenem. Repeat blood culture given 1 blood culture bottle 1 g positive cocci. This could be secondary to skin contamination. Follow urine culture and blood cultures. Continue antihypertensives. Continue home dose of oxycodone for chronic pain. Social service assisting with arrangement for outpatient antibiotics.
[2020-07-10] MEDS: ZOLPIDEM TARTRATE 5 MG TABLET PO SCH ×2 (21:00→22:55)
[2020-07-11] MEDS: HEPARIN 5000 UNIT/ML 1 ML VIAL SQ SCH ×2 (00:34→08:46)
[2020-07-11] MEDS ORDERED: POTASSIUM 25 MEQ EFFERV TAB PO ONE (07:34)
[2020-07-11] MEDS: HYDROCODONE/APAP 10/325 TAB PO PRN ×2 (08:45→16:03)
[2020-07-11] MEDS: Meropenem 500 MG in NA CHLORIDE 0.9% 100 ML IV SCH (08:46)
[2020-07-11] MEDS: MORPHINE 2 MG/ML SYR IV PRN (12:49)
--- NOTE | 2020-07-11 13:07 | P.DS ---
Admission Date: 07/08/20 Discharge Date: 07/11/20 Disposition: DC HOME/HOME HEALTH CARE Discharge Condition: FAIR Reason for Admission: UTI Procedures: None - Problems (1) Acute pyelonephritis Current Visit: Yes Status: Acute (2) Infection due to ESBL-producing Escherichia coli Current Visit: Yes Status: Acute (3) Spina bifida Onset Date: 06/01/17 Current Visit: No Status: Chronic Qualifiers: (4) Positive blood culture Current Visit: Yes Status: Acute Brief History of Present Illness: 30-year-old woman with a history of spina bifida, suprapubic stoma, status post cecostomy, history of RECHECKER shunt, history of recurrent UTI was directed to the emergency department because her urine culture was growing ESBL E. coli. Patient reports 1 week history of malaise, intermittent nausea and vomits and loss of appetite. She also reported bilateral flank pain. CT abdomen and pel vis done in the ED suggests acute pyelonephritis. Lactate is negative. UA in the ED suggested the presence of UTI. Patient hospitalized for further management. Hospital Course: Patient admitted to the medical floor and started on IV meropenem based on her recent urine culture growing ESBL E. coli. Patient had bilateral flank pain which resolved with treatment. Repeat Urine culture grew ESBL E. coli. Patient's blood culture also grew coagulase-negative Staph which is likely a skin contaminant. Repeat blood culture shows no growth. Patient has been asymptomatic and clinically stable. He will be discharged with outpatient IV meropenem to be given by home health. PICC line has been placed for outpatient IV antibiotics. Vital Signs/Physical Exam: Temp Pulse Resp BP Pulse Ox 98.7 F 110 H 17 119/74 98 07/11/20 08:00 07/11/20 08:00 07/11/20 09:45 07/11/20 08:00 07/11/20 09:45 General: Alert, In no apparent distress Neck: Supple Respiratory: Clear to auscultation bilaterally, Normal air movement Gastrointestinal: Non-distended Integumentary: No rashes Neurological: Other (Nonfocal) Laboratory Data at Discharge: WBC 5.7 K/uL (4.3-10.9) D 07/10/20 06:15 Hgb 8.8 g/dL (12.0-15.0) L 12/05/20 06:15 Hct 25.8 % (36.0-45.0) L 07/10/20 06:15 Plt Count 260 K/uL (152-406) 07/10/20 06:15 PT 14.6 SECONDS (9.5-12.5) H 07/08/20 15:00 INR 1.24 07/08/20 15:00 Sodium 143 mmol/L (136-145) 07/10/20 06:15 Potassium 3.5 mmol/L (3.5-5.1) 07/10/20 06:15 BUN 5 mg/dL (7-18) L 07/10/20 06:15 Creatinine 0.16 mg/dL (0.55-1.3) L 07/10/20 06:15 Glucose 102 mg/dL (74-106) 07/10/20 06:15 Phosphorus 3.3 mg/dL (2.5-4.9) 07/09/20 05:43 Magnesium 1.9 mg/dL (1.8-2.4) 07/09/20 05:43 Total Bilirubin 0.6 mg/dL (0.2-1.0) 07/08/20 15:00 AST 21 U/L (15-37) 07/08/20 15:00 ALT 23 U/L (12-78) 07/08/20 15:00 Alkaline Phosphatase 105 U/L (45-117) 07/08/20 15:00 Home Medications: Atenolol [Tenormin] 100 mg PO DAILY 02/17/20 Diphenhydramine [Benadryl*] 50 mg PO BEDTIME PRN PRN 02/17/20 Oxycodone HCl/Acetaminophen [Oxycodone-Acetaminophen 10-325] 1 each PO Q6HP PRN 02/17/20 Hans [Hans*] 1 pkt PO BID #60 powd.pack 07/11/20 Meropenem [Merrem*] 500 mg IV Q12HR 5 Days vial 07/11/20 New Medications: Meropenem [Merrem*] 500 mg IV Q12HR 5 Days vial Hans [Hans*] 1 pkt PO BID #60 powd.pack Followup: Kandi Chacko PAC [Primary Care Provider] - Time spent managing pt's care (in minutes): 36
--- NOTE | 2020-07-11 13:12 | P.PN ---
Subjective Date of Service: 07/11/20 Chief Complaint: UTI Patient has no complain today. PICC line placed for outpatient antibiotics yesterday. She has had no fever and does not look sick. PE blood culture: no growth. Physical Examination - Vital Signs Temperature: 98.7 F Blood Pressure: 119/74 Pulse: 110 Respirations: 17 Pulse Ox (%): 98 - Physical Exam General: Alert, In no apparent distress Neck: Supple Respiratory: Normal air movement Cardiovascular: Regular rate/rhythm, Normal S1 S2 Gastrointestinal: Non-distended Musculoskeletal: No swelling Integumentary: No rashes - Studies Microbiology Data (last 24 hrs): 07/08/20 15:00 Blood - Blood Aerobic Blood Culture - Final Staph Epidermidis 07/08/20 15:00 Blood - Blood Blood Culture Gram Stain - Final 07/08/20 15:00 Blood - Blood Anaerobic Blood Culture - Final Staph Epidermidis 07/08/20 15:00 Blood - Blood Gram Stain - Final 07/08/20 13:40 Catheterized Urine [place] Count - Final >100,000 CFU/ML. 07/08/20 13:40 Catheterized Urine - Final Escherichia Coli Esbl Assessment And Plan - Current Problems (Diagnosis) (1) Acute pyelonephritis Current Visit: Yes Status: Acute (2) Infection due to ESBL-producing Escherichia coli Current Visit: Yes Status: Acute (3) Spina bifida Onset Date: 06/01/17 Current Visit: No Status: Chronic Qualifiers: (4) Positive blood culture Current Visit: Yes Status: Acute - Plan Continue IV meropenem. Repeat blood culture: No growth. Coagulase-negative Staph growth in the blood culture bottle likely a skin contaminant. Urine culture: ESBL E. coli. Continue antihypertensives. Continue home dose of oxycodone for chronic pain. Social service assisting with arrangement for outpatient antibiotics.
[2020-07-11 17:16] VITALS: BP 141/78; TEMP 98.9
[2020-07-11] MEDS ORDERED: JUVEN PACKET PO SCH (21:00)
== END 2020-07-11 16:53 | disposition home health service (06) | DRG 690 ==
LOC: ER 10:40 → ERHOLD 15:51 → 2ND 07-09 16:28
PROVIDERS: ADMIT Internal Medicine; ATTEND Internal Medicine
PROC: 02HV33Z Insertion of Infusion Device into Superior Vena Cava, Percutaneous Approach (ICD-10-PCS; principal; 2020-07-10)
DX: N10 Acute pyelonephritis (principal); Z16.12 Extended spectrum beta lactamase (ESBL) resistance; I10 Essential (primary) hypertension; G89.29 Other chronic pain; Q05.9 Spina bifida, unspecified; K21.9 Gastro-esophageal reflux disease without esophagitis; B96.20 Unspecified Escherichia coli [E. coli] as the cause of diseases classified elsewhere; Z91.040 Latex allergy status; Z88.5 Allergy status to narcotic agent; Z91.048 Other nonmedicinal substance allergy status; Z89.411 Acquired absence of right great toe; Z79.899 Other long term (current) drug therapy; Z86.14 Personal history of Methicillin resistant Staphylococcus aureus infection; Z88.1 Allergy status to other antibiotic agents; Z20.828 Contact with and (suspected) exposure to other viral communicable diseases
CPT/HCPCS: 36415; 36569; 71045; 74176; 76377; 80048; 80076; 81003; 81015; 81025; 83605; 83735; 84100; 84145; 85025; 85610; 87040; 87077; 87086; 87088; 87186; 87205; 96365; 96375; 99285; J1644; J2185; J2270; J3010; J7030; J7040; U0002

== ENCOUNTER 2020-09-03 10:35 | Inpatient (IN) | payer OTHER ==
--- OUTSIDE RECORDS SUMMARY | 2020-09-03 10:43 | XMS REPORT | Continuity of Care Document ---
:1990 Author Organization [facility] t Address [address] [place] [address] Care Team Providers Name Role Phone Posindhu, Lab Main Attending Clinician Unavailable Doctor Unassigned, Name Attending Clinician Unavailable Samanta Smallwood MD Attending Clinician Te Vigil MD Attending Clinician Jeff Meraz MD, Kermit Davila Attending Clinician + Problems This patient has no known problems. Allergies, Adverse Reactions, Alerts This patient has no known allergies or adverse reactions. Social History Social Habit Start Date Stop Date Quantity Comments Source Sex Assigned At [facility] Medications This patient has no known medications. Procedures This patient has no known procedures. Encounters Start End Encounter Admission Attending Care Care Encounter Source Date/Time Date/Time Type Type Clinicians Facility Department ID 2020-07-05 2020-07-05 Cost Control Supervisor Erika Adams 1.2.840.114 [id number] 14:05:50 14:20:50 Visit Lab Main [place] [id number] [place] 4.2.7.2.686 Jj [phone] [address] 2020-07-05 2020-07-05 Orders Doctor HURST 1.2.840.114 [id number] 00:00:00 00:00:00 Only Unassigned, JESSICA [id number] [facility] [id number] [id number] [id number] 2020-05-17 2020-05-17 Orders Doctor HURST 1.2.840.114 [id number] 00:00:00 00:00:00 Only Unassigned, JESSICA [id number] [facility] 4.2.7.2.686 [id number] [id number] 2020-03-18 2020-03-18 Orders Doctor HURST 1.2.840.114 [id number] 00:00:00 00:00:00 Only Unassigned, JESSICA [id number] [facility] 4.2.7.2.686 [id number] [id number] 2020-03-09 2020-03-09 Orders Doctor HURST 1.2.840.114 [id number] 00:00:00 00:00:00 Only Unassigned, JESSICA 350.1.13.10 [facility] 4.2.7.2.686 [id number] [id number] 2020-01-05 2020-01-05 Orders Doctor HURST Nuno.2.840.114 [id number] 00:00:00 00:00:00 Only Unassigned, JESSICA 350.1.13.10 [facility] 4.2.7.2.686 [id number] [id number] 2019-12-18 2019-12-18 [facility] 1.2.840.114 [id number] 00:00:00 00:00:00 [place] 350.1.13.10 [place] 4.2.7.2.686 Professio [phone] [address] 2019-12-16 2019-12-16 [facility] 1.2.840.114 [id number] 00:00:00 00:00:00 [place] A [place] 350.1.13.10 [place] 4.2.7.2.686 Professio [phone] [address] 2019-12-09 2019-12-09 Orders Doctor NATALI Tinoco2.840.114 [id number] 00:00:00 00:00:00 Only Unassigned, JESSICA 350.1.13.10 [facility] 4.2.7.2.686 [id number] 009 2019-11-24 2019-11-24 Telephone [facility] 1.2.840.114 [id number] 00:00:00 00:00:00 [place] A [place] 350.1.13.10 [place] 4.2.7.2.686 Professio [phone] [address] 2019-11-24 2019-11-24 Orders Doctor NATALI 1.2.840.114 [id number] 00:00:00 00:00:00 Only Unassigned, JESSICA 350.1.13.10 [facility] 4.2.7.2.686 [id number] 009 2019-11-07 2019-11-07 Orders Doctor NATALI 1.2.840.114 [id number] 00:00:00 00:00:00 Only Unassigned, JESSICA 350.1.13.10 [facility] 4.2.7.2.686 [id number] [id number] 2019-11-05 2019-11-05 Telephone [facility] 1.2.840.114 [id number] 00:00:00 00:00:00 [place] 350.1.13.10 [place] 4.2.7.2.686 Professio [phone] [address] 2019-10-30 2019-10-30 [facility] 1.2.840.114 [id number] 00:00:00 00:00:00 [facility] 350.1.13.10 [place] 4.2.7.2.686 Professio [phone] [place] [address] [address] [facility] 2019-10-30 2019-10-30 Orders Doctor NATALI 1.2.840.114 [id number] 00:00:00 00:00:00 Only Unassigned, JESSICA 350.1.13.10 [facility] 4.2.7.2.686 [id number] [id number] 2019-10-22 2019-10-22 Telephone [facility] 1.2.840.114 [id number] 00:00:00 00:00:00 [facility] 350.1.13.10 [place] 4.2.7.2.686 Professio [phone] [place] [address] [address] [facility] 2019-10-20 2019-10-20 Telephone Cl [facility] 1.2.840.114 [id number] 00:00:00 00:00:00 [facility] 350.1.13.10 [place] 4.2.7.2.686 Professio [phone] [place] [address] [address] [facility] 2019-10-15 2019-10-15 [facility] 1.2.840.114 [id number] 00:00:00 00:00:00 [facility] 350.1.13.10 [place] 4.2.7.2.686 Professio [phone] [place] [address] [address] [facility] 2019-10-08 2019-10-08 Telephone Cl [facility] 1.2.840.114 [id number] 00:00:00 00:00:00 [facility] 350.1.13.10 [place] 4.2.7.2.686 Professio [phone] [place] [address] [address] One 2019-08-29 2019-08-29 Office CASPER Vigil 1.2.840.114 [id number] 13:02:13 13:12:13 Visit Roberto AMBULATOR 350.1.13.21 P Y 0.2.7.2.686 [id number] 2019-04-29 2019-04-29 Office Jeff BCTrish 1.2.806.948 [id number] 10:53:12 12:18:36 Visit Kt AMBULATOR 350.1.13.21 Rasheed Carmen Y 0.2.7.2.686 Lola [phone] 800 Results This patient has no known results.
--- OUTSIDE RECORDS SUMMARY | 2020-09-03 10:43 | XMS REPORT | Clinical Summary ---
:1990 Author Organization [facility] Address [address] [place] [address] Care Team Providers Name Role Phone Unavailable Primary Care Provider Unavailable Allergies Not on File Medications Not on file Active Problems Not on file Social History Tobacco Use Types Packs/Day Years Used Date Never Assessed Sex Assigned at Date Recorded Not on file Last Filed Vital Signs Not on file Plan of Treatment Not on file Results Not on fileafter 09/03/2019 Insurance Payer Benefit Plan Subscriber ID Effective Dates Phone Address Type / Group MEDICAID - [facility] COMM [id number] Effective for Med icaid MEDICAID [place] STAR PLAN all dates Contrac carlos CARE AETNA - [place] AETNA HMO POS [id number] 2018-Presen HMO/POS CARE QPOS t
[2020-09-03 11:24] LABS: Basophils % 0.4 % (0-1.3); Hematocrit 37.2 % (36.0-45.0); MPV 8.1 fL (7.6-11.3); RBC Red Blood Cell Count 4.22 M/uL (3.86-4.86)
[2020-09-03] MEDS ORDERED: NA CHLORIDE 0.9% 1,000 ML ONE (11:34)
[2020-09-03] MEDS ORDERED: ONDANSETRON 4 MG/2 ML VIAL ONE (11:34)
[2020-09-03 11:35] LABS: ALT/SGPT 17 U/L (12-78); AST/SGOT 13 U/L (15-37); Albumin 3.5 g/dL (3.4-5.0); Alkaline Phosphatase 186 U/L (45-117); BUN Blood Urea Nitrogen 6 mg/dL (7-18); Bicarbonate 28 mmol/L (21-32); Bilirubin Direct < 0.1 mg/dL (0-0.2); Bilirubin Total 0.2 mg/dL (0.2-1.0); Glucose Level 124 mg/dL (74-106); Lipase 78 U/L (73-393); Protein, Total 7.9 g/dL (6.4-8.2); Sodium Level 140 mmol/L (136-145)
[2020-09-03 11:41] LABS: Urine Blood NEGATIVE (NEG); Urine Glucose NEGATIVE (NEG); Urine Protein 1+ (NEG)
[2020-09-03 11:48] LABS: Urine Bacteria LOADED /HPF (<20); Urine RBC NONE SEEN /HPF (NONE SEEN)
[2020-09-03] MEDS ORDERED: MORPHINE 2 MG/ML SYR ONE ×2 (12:10→13:26)
--- NOTE | 2020-09-03 12:39 | RAD REPORT ---
EXAM DESCRIPTION: CT - Stone Protocol - 09/03/2020 12:17 pm CLINICAL HISTORY: Flank pain. FLANK PAIN COMPARISON: Stone Protocol dated 07/08/2020 TECHNIQUE: Axial images were obtained without oral or IV contrast. Lack of contrast limits solid org an and vascular assessment. The [id number] spans the entirety of the system partially obscuring uppermost abdomen and lung bases. Coronal reformatted images were obtained and reviewed. All CT scans are performed using dose optimization technique as appropriate and may include automated exposure control or mA/KV adjustment according to patient size. FINDINGS: The lower lung yang are clear. Imaged portions of the liver and spleen show no suspicious findings on non-contrast imaging.Gallstone is present in the gallbladder. The pancreas and adrenal glands are normal. No pathologic lymphadenop athy in the abdomen or pelvis. Tiny calculus in the superior right kidney without hydronephrosis. 4 mm stone is seen inferior left k idney without hydronephrosis. Thickening of the urinary bladder wall is, moderately severe. No bowel obstruction, free air, free fluid or abscess. Moderate stool is retained throughout the colo n. Right lower quadrant ostomy is noted. Severe scoliosis and spina bifida changes are noted. Chronic osteomyelitis of the left ischium is see n with adjacent large decubitus ulceration is seen. Shunt tubing is present in the abdomen. IMPRESSION: Bilateral renal calculi are seen without hydronephrosis. Cholelithiasis. Thickening of the urinary bladder may indicate cystitis. Chronic osteomyelitis left ischium with associated large decubitus ulcer.
--- NOTE | 2020-09-03 13:02 | EDPHYS ---
Physician Documentation [facility] Name: Shari Estrella Age: 30 yrs Sex: Female : 1990 Arrival Date: 09/03/2020 Time: 10:39 Bed 20 Private MD: ED Physician Eric Celestin HPI: 09/03 10:45 This 30 yrs old Female presents to ER via Unassigned with complaints of cp Nausea/Vomiting. 10:45 The patient presents to the emergency department with nausea, that is mild, vomiting, cp that is intermittent. Onset: The symptoms/episode began/occurred this morning. 10:45 Associated signs and symptoms: Pertinent negatives: constipation, diarrhea, fever, cp active vomiting. Historical: - Allergies: 10:52 Adhesives; ss 10:52 Bactrim; ss 10:52 Demerol; ss 10:52 Latex, Natural Rubber; ss 10:52 Sulfa (Sulfonamide Antibiotics); ss 10:52 Vancomycin; ss - PMHx: 10:52 Hypertension; Pressure Ulcer to the Coccyx.; Sepsis; spina-bifida; UTI; ss - PSHx: 10:52 Shunt Placement; Back Surgery; ss - Immunization history:: Adult Immunizations up to date. - Social history:: Smoking status: Patient denies any tobacco usage or history of. ROS: 10:50 Constitutional: Negative for body aches, chills, fever, poor PO intake. cp 10:50 Eyes: Negative for injury, pain, redness, and discharge. cp 10:50 ENT: Negative for ear pain, sore throat, difficulty swallowing, difficulty handling secretions. 10:50 Cardiovascular: Negative for chest pain. 10:50 Respiratory: Negative for cough, shortness of breath. 10:50 Abdomen/GI: Positive for abdominal pain, nausea and vomiting, Negative for diarrhea, constipation. 10:50 Back: Positive for flank pain. 10:50 Neuro: Negative for altered mental status. 10:50 All other systems are negative. Exam: 11:00 Constitutional: The patient appears in no acute distress, alert, awake, non-toxic, well cp developed, well nourished. 11:00 Head/Face: Normocephalic, atraumatic. cp 11:00 Eyes: Periorbital structures: appear normal, Conjunctiva: normal, no exudate, no injection, Sclera: no appreciated abnormality, Lids and lashes: appear normal, bilaterally. 11:00 ENT: External ear(s): are unremarkable, Nose: is normal, Posterior pharynx: Airway: no evidence of obstruction, patent. 11:00 Chest/axilla: Inspection: normal, Palpation: is normal, no crepitus, no tenderness. 11:00 Cardiovascular: Rate: normal, Rhythm: regular. 11:00 Respiratory: the patient does not display signs of respiratory distress, Respirations: normal, no use of accessory muscles, no retractions, labored breathing, is not present, Breath sounds: are clear throughout, no decreased breath sounds, no stridor, no wheezing. 11:00 Abdomen/GI: Inspection: abdomen appears normal, Bowel sounds: active, all quadrants, Palpation: soft, in all quadrants, moderate abdominal tenderness, in the right lower quadrant and left lower quadrant. 11:00 Back: CVA tenderness, that is moderate. 11:00 Neuro: Orientation: to person, place \\T\\ time. Mentation: is normal. Vital Signs: 10:50 BP 134 / 86; Pulse 89; Resp 17; Temp 99.1(O); Pulse Ox 100% on R/A; Weight 33.57 kg; ss Pain 9/10; 12:41 BP 117 / 74; Pulse 68; Resp 14; Pulse Ox 100% on R/A; vg1 13:00 BP 120 / 85; Pulse 70; Resp 16; Pulse Ox 100% on R/A; vg1 14:00 BP 113 / 63; Pulse 80; Resp 16; Pulse Ox 100% on R/A; vg1 15:00 BP 114 / 75; Pulse 83; Resp 14; Pulse Ox 100% on R/A; vg1 16:00 BP 128 / 90; Pulse 94; Resp 14; Pulse Ox 100% on R/A; vg1 MDM: 10:44 Patient medically screened. cp 12:00 Differential diagnosis: gastritis, appendicitis, viral gastroenteritis, cp gastroenteritis, UTI, sepsis. 13:00 Data reviewed: vital signs, nurses notes, lab test result(s), radiologic studies, CT cp scan, and as a result, I will admit patient. 13:00 Counseling: I had a detailed discussion with the patient and/or guardian regarding: the cp historical points, exam findings, and any diagnostic results supporting the discharge/admit diagnosis, lab results, radiology results, the need for further work-up and treatment in the hospital. Physician consultation: Fern Ivory MD was contacted at 13:00, regarding admission, to the medical/surgical unit. patient's condition. 09/03 10:45 Order name: Basic Metabolic Panel; Complete Time: 11:41 09/03 10:45 Order name: CBC with Diff; Complete Time: 11:41 09/03 10:45 Order name: Hepatic Function; Complete Time: 11:41 09/03 10:45 Order name: Lipase; Complete Time: 11:41 cp 09/03 10:45 Order name: Urine Microscopic Only; Complete Time: 12:23 09/03 12:23 Interpretation: Normal except: UWBC 10-20; UBACT LOADED. 09/03 11:40 Order name: Urine Dipstick--Ancillary (enter results); Complete Time: 12:23 09/03 12:55 Interpretation: Normal except: UPROT 1+; U NIT POSITIVE; UESTR 1+. 09/03 11:40 Order name: Urine --Ancillary (enter results); Complete Time: 12:23 09/03 11:43 Order name: Lactate; Complete Time: 15:48 09/03 15:49 Interpretation: Within normal limits: LAC 1.1. 09/03 11:43 Order name: Procalcitonin; Complete Time: 15:48 09/03 15:48 Interpretation: Procalcitonin < 0.05; Reviewed. 09/03 11:50 Order name: Urine Culture [facility] 09/03 13:42 Order name: CBC with Automated Diff [facility] 09/03 13:42 Order name: CBC with Automated Diff [facility] 09/03 13:42 Order name: Comprehensive Metabolic Panel [facility] 09/03 13:42 Order name: Comprehensive Metabolic Panel [facility] 09/03 10:45 Order name: IV Saline Lock; Complete Time: 11:35 09/03 11:42 Order name: CT Stone Protocol; Complete Time: 12:54 09/03 13:42 Order name: CONS Pharmacy Consult [facility] 09/03 13:42 Order name: CONS Physician Consult [facility] 09/03 13:42 Order name: Regular [facility] 09/03 13:42 Order name: Protime (+INR) [facility] 09/03 13:42 Order name: Protime (+INR) [facility] 09/03 13:42 Order name: PTT, Activated Partial Thromb [facility] 09/03 13:42 Order name: PTT, Activated Partial Thromb [facility] 09/03 14:00 Order name: COVID-19 : Document "Date of Symptom Onset" if Symptomatic. vg1 09/03 15:52 Order name: SARS-COV-2 RT PCR [facility] 09/03 10:45 Order name: Labs collected and sent; Complete Time: 11:35 cp 09/03 10:45 Order name: Cath; Complete Time: 11:39 cp 09/03 10:45 Order name: Urine Dipstick-Ancillary (obtain specimen); Complete Time: 11:39 cp 09/03 10:45 Order name: Urine Test (obtain specimen); Complete Time: 11:39 cp Administered Medications: 11:35 Drug: Zofran (Ondansetron) 4 mg Route: IVP; Site: left wrist; em 13:04 Follow up: Response: No adverse reaction; Nausea is decreased vg1 12:01 Drug: NS 0.9% (20 ml/kg) 20 ml/kg Route: IV; Rate: 1 bolus; Site: left wrist; em 16:08 Follow up: IV Status: Completed infusion; IV Intake: 650ml vg1 12:01 Drug: morphine 2 mg Route: IVP; Site: left wrist; em 13:28 Drug: morphine 2 mg {Note: rass0.} Route: IVP; Site: left wrist; vg1 15:56 Follow up: Response: Pain is unchanged, physician notified vg1 13:29 Drug: Meropenem 500 mg Route: IV; Rate: calculated rate; Site: left wrist; vg1 15:57 Follow up: Response: No adverse reaction; IV Status: Completed infusion vg1 16:07 Drug: morphine 4 mg {Note: rass0.} Route: IVP; Site: left wrist; vg1 16:40 Follow up: Response: Pain is decreased vg1 Disposition: 17:12 Co-signature as Attending Physician, Eric Celestin MD I agree with the assessment and kdr plan of care. Disposition: 09/03/20 13:01 Hospitalization ordered by Fern Ivory for Observation. Preliminary diagnosis is Urinary tract infection, site not specified. - Bed requested for Telemetry/MedSurg (observation). - Status is Observation. vg1 - Condition is Stable. - Problem is new. - Symptoms have improved. Signatures: Dispatcher [employer] Nia Sotomayor, CHATA RN dw Eric Celestin MD MD [facility] Paulo Xie RN RN Laury Perkins RN RN ss Page, Corey, PA PA cp Garcia, Victoria RN RN vg1 Corrections: (The following items were deleted from the chart) 16:06 13:01 Hospitalization Ordered by Fern Ivory MD for Observation. Preliminary dw diagnosis is Urinary tract infection, site not specified. Bed requested for Telemetry/MedSurg (observation). Status is Observation. Condition is Stable. Problem is new. Symptoms have improved. cp 16:51 16:06 09/03/2020 13:01 Hospitalization Ordered by Fern Ivory MD for Observation. vg1 Preliminary diagnosis is Urinary tract infection, site not specified. Bed requested for Telemetry/MedSurg (observation). Status is Observation. Condition is Stable. Problem is new. Symptoms have improved. dw
--- NOTE | 2020-09-03 13:02 | ER ---
Nurse's Notes [facility] Name: Shari Estrella Age: 30 yrs Sex: Female : 1990 Arrival Date: 09/03/2020 Time: 10:39 Bed 20 Private MD: Diagnosis: Urinary tract infection, site not specified Presentation: 09/03 10:50 Chief complaint: Patient states: N/V and low back pain that began 2-3 days ago. Pt also ss reports foul smelling urine during these last few days. HX of frequent UTIs as patient self caths. Coronavirus screen: Client denies travel out of the [place] in the last 14 days. Ebola Screen: Patient denies exposure to infectious person. Patient denies travel to an Ebola-affected area in the 21 days before illness onset. Initial Sepsis Screen: Does the patient meet any 2 criteria? No. Patient's initial sepsis screen is negative. Does the patient have a suspected source of infection? Yes: Dysuria/Frequency/Urgency/UTI. Risk Assessment: Do you want to hurt yourself or someone else? Patient reports no desire to harm self or others. Onset of symptoms. 10:50 Method Of Arrival: EMS: [facility] ss 10:50 Acuity: SAMAN 3 ss Historical: - Allergies: 10:52 Adhesives; ss 10:52 Bactrim; ss 10:52 Demerol; ss 10:52 Latex, Natural Rubber; ss 10:52 Sulfa (Sulfonamide Antibiotics); ss 10:52 Vancomycin; ss - PMHx: 10:52 Hypertension; Pressure Ulcer to the Coccyx.; Sepsis; spina-bifida; UTI; ss - PSHx: 10:52 Shunt Placement; Back Surgery; ss - Immunization history:: Adult Immunizations up to date. - Social history:: Smoking status: Patient denies any tobacco usage or history of. Screenin:42 Abuse screen: Denies threats or abuse. Nutritional screening: No deficits noted. vg1 Tuberculosis screening: No symptoms or risk factors identified. Fall Risk No fall in past 12 months (0 pts). No secondary diagnosis (0 pts). IV access (20 points). Ambulatory Aid- Crutches/Cane/Walker (15 pts). Gait- Impaired (20 pts.). Mental Status- Oriented to own ability (0 pts). Total Aburto Fall Scale indicates High Risk Score (45 or more points). Fall prevention measures have been instituted. Side Rails Up X 2 Placed Close to Nursing Station. Assessment: 12:40 General: Appears in no apparent distress. comfortable, Behavior is calm, cooperative. vg1 Pain: Complains of pain in back Pain currently is 8 out of 10 on a pain scale. Neuro: Level of Consciousness is awake, alert, obeys commands, Oriented to person, place, time, situation. Cardiovascular: Patient's skin is warm and dry. Respiratory: Airway is patent Respiratory effort is even, unlabored, Respiratory pattern is. GI: Abdomen is flat, non-distended. GI: Reports nausea, vomiting. :. : Reports foul order. EENT: No signs and/or symptoms were reported regarding the EENT system. Derm: Skin is intact, is healthy with good turgor. 13:29 Reassessment: Patient appears in no apparent distress at this time. Patient and/or vg1 family updated on plan of care and expected duration. Pain level reassessed. Patient is alert, oriented x 3, equal unlabored respirations, skin warm/dry/pink. 15:30 Reassessment: Patient states pain level 9/10. Provider notified. vg1 15:53 Reassessment: Called outside lab to get Covid results, stated patients Covid is vg1 negative. Called [facility] and gave report. 15:54 Reassessment: Received VO from Joel Salmon to administer 4mg of morphine IVP x1. vg1 16:26 Reassessment: Patient appears in no apparent distress at this time. Patient and/or vg1 family updated on plan of care and expected duration. Pain level reassessed. Patient is alert, oriented x 3, equal unlabored respirations, skin warm/dry/pink. Vital Signs: 10:50 BP 134 / 86; Pulse 89; Resp 17; Temp 99.1(O); Pulse Ox 100% on R/A; Weight 33.57 kg; ss Pain 9/10; 12:41 BP 117 / 74; Pulse 68; Resp 14; Pulse Ox 100% on R/A; vg1 13:00 BP 120 / 85; Pulse 70; Resp 16; Pulse Ox 100% on R/A; vg1 14:00 BP 113 / 63; Pulse 80; Resp 16; Pulse Ox 100% on R/A; vg1 15:00 BP 114 / 75; Pulse 83; Resp 14; Pulse Ox 100% on R/A; vg1 16:00 BP 128 / 90; Pulse 94; Resp 14; Pulse Ox 100% on R/A; vg1 ED Course: 10:39 Patient arrived in ED. em 10:40 Joel Salmon PA is PHCP. cp 10:40 Eric Celestin MD is Attending Physician. cp 10:51 Triage completed. ss 10:52 Arm band placed on right wrist. ss 10:55 Paulo Xie, RN is Primary Nurse. em 11:10 Missed attempt(s): 22 gauge in right antecubital area. Bleeding controlled, band aid dh3 applied, catheter tip intact. 11:15 Initial lab(s) drawn, by me, sent to lab. Inserted saline lock: 22 gauge in left wrist, dh3 using aseptic technique. Blood collected. 11:30 suprapubic cath 10Fr, cloudy urine collected 90mL patient tolerated well. dh3 11:39 Urine Microscopic Only Sent. dh3 12:05 Primary Nurse role handed off by Paulo Xie, RN vg1 12:05 Brina Lu, RN is Primary Nurse. vg1 12:17 CT Stone Protocol In Process Unspecified. EDMS 12:42 Patient has correct armband on for positive identification. Placed in gown. Bed in low vg1 position. Call light in reach. Side rails up X2. 13:01 Fern Ivory MD is Hospitalizing Provider. cp 14:07 COVID swab sent to lab. vg1 16:39 No provider procedures requiring assistance completed. Patient admitted, IV remains in vg1 place. Administered Medications: 11:35 Drug: Zofran (Ondansetron) 4 mg Route: IVP; Site: left wrist; em 13:04 Follow up: Response: No adverse reaction; Nausea is decreased vg1 12:01 Drug: NS 0.9% (20 ml/kg) 20 ml/kg Route: IV; Rate: 1 bolus; Site: left wrist; em 16:08 Follow up: IV Status: Completed infusion; IV Intake: 650ml vg1 12:01 Drug: morphine 2 mg Route: IVP; Site: left wrist; em 13:28 Drug: morphine 2 mg {Note: rass0.} Route: IVP; Site: left wrist; vg1 15:56 Follow up: Response: Pain is unchanged, physician notified vg1 13:29 Drug: Meropenem 500 mg Route: IV; Rate: calculated rate; Site: left wrist; vg1 15:57 Follow up: Response: No adverse reaction; IV Status: Completed infusion vg1 16:07 Drug: morphine 4 mg {Note: rass0.} Route: IVP; Site: left wrist; vg1 16:40 Follow up: Response: Pain is decreased vg1 Intake: 16:08 IV: 650ml; Total: 650ml. vg1 Outcome: 13:01 Decision to Hospitalize by Provider. cp 16:39 Admitted to Tele accompanied by tech, via stretcher, room 218, with chart, Report vg1 called to CHATA ADAN 16:39 Condition: stable 16:39 Instructed on the need for admit. 16:51 Patient left the ED. vg1 Signatures: Dispatcher [employer] Paulo Hoffman, RN Laury Galeana RN RN ss Page, Corey, DEJAN PA Jacqui Jeffries [facility] Brina Lu RN RN vg1
[2020-09-03] MEDS ORDERED: Meropenem 500 MG/100 ML BAG ONE (13:26)
[2020-09-03] MEDS ORDERED: ONDANSETRON 4 MG/2 ML VIAL IV PRN (13:35)
[2020-09-03] MEDS ORDERED: ACETAMINOPHEN 500 MG TAB PO PRN (13:35)
[2020-09-03] MEDS ORDERED: ERTAPENEM SODIUM 1 GM VIAL IVPB ONE (13:38)
[2020-09-03] MEDS: NA CHLORIDE 0.9% 1,000 ML IV SCH ×2 (14:00→18:05)
[2020-09-03] MEDS ORDERED: MORPHINE 4 MG/ML SYR ONE (16:16)
[2020-09-03 18:02] VITALS: BMI 40.6
[2020-09-03] MEDS: MORPHINE 2 MG/ML SYR IV PRN ×2 (18:05→23:16)
[2020-09-03] MEDS: JUVEN PACKET PO SCH (20:30)
--- NOTE | 2020-09-03 20:58 | CON ---
History Of Present Illness: She is a well known patient to me for last 5 years. Patient is here tod ay for urinary tract infection. I have been seeing her off and on for wounds to her sacral coccyx re gizackery. The patient denies any headache, was having some nausea and vomiting, which brought her to the hospital and was found to have in the emergency room that she has urinary tract infection. Currentl y, the patient is being on meropenem and ertapenem. Denies any other problems. She has multiple all ergies. Also has spina bifid. Past Medical History: Spina bifida, sacral coccyx ulceration, stage IV ulceration. Family History: Noncontributory. Medications: Ertapenem and Invanz. See MAR for other medications. Allergies: ADHESIVE TAPES, LATEX, NATURAL RUBBER, SULFA DRUGS, VANCOMYCIN. Review of Systems: A 10-point review was performed. Physical Examination: General: This is a 30-year-old female, lying in bed, not in any acute cardiopulmonary distress. Vital Signs: Temperature 98, pulse 78, respirations 16. HEENT: Unremarkable. Neck: Supple. Lungs: Clear to auscultation. Heart: S1, S2. Regular. Abdomen: Soft, nontender. Bowel sounds present. Extremities: No edema. Laboratory Data: WBC 7.6, hemoglobin 12.4, platelets are 300. Chemistry shows sodium 140, potassium 4, chloride 109, bicarb 28, BUN 6, creatinine 0.38, glucose is 124, albumin is 3.5. Assessment And Plan: 1.Urinary tract infection, pending culture results. I agree with Invanz. 2.Sacral coccyx wound. Continue current wound care. No new recommendation at this time. Stage IV wound. No new recommendation at this time. We will follow the patient as needed. Thank you Dr. Ivory for consult. MORIS/TENZIN Voice ID: [id number] Report ID: [id number]
[2020-09-03] MEDS ORDERED: ERTAPENEM NA 1 GM in NA CHLORIDE 0.9% 100 ML IVPB ONE (21:00)
[2020-09-03] MEDS ORDERED: ALPRAZOLAM 0.5 MG TABLET PO ONE (21:12)
[2020-09-04] MEDS: ZOLPIDEM TARTRATE 5 MG TABLET PO SCH ×2 (00:12→21:17)
[2020-09-04 06:01] LABS: Absolute Lymphocytes (CBC) 1.9 K/uL (0.7-4.9); Basophils % 0.8 % (0-1.3); Lymphocytes % 30.3 % (15.3-44.8); MPV 8.2 fL (7.6-11.3); RBC Red Blood Cell Count 3.89 M/uL (3.86-4.86)
[2020-09-04 06:11] LABS: Protime INR 1.05
[2020-09-04] MEDS: Oxycodone HCl/Acetaminophen 1 TAB TAB PO PRN ×3 (06:17→18:36)
[2020-09-04] MEDS: NA CHLORIDE 0.9% 1,000 ML IV SCH ×2 (06:19→16:37)
[2020-09-04 06:25] LABS: ALT/SGPT 13 U/L (12-78); AST/SGOT 13 U/L (15-37); Albumin 2.9 g/dL (3.4-5.0); Alkaline Phosphatase 158 U/L (45-117); BUN Blood Urea Nitrogen 5 mg/dL (7-18); Bicarbonate 26 mmol/L (21-32); Bilirubin Total 0.1 mg/dL (0.2-1.0); Glucose Level 99 mg/dL (74-106); Potassium 3.5 mmol/L (3.5-5.1); Protein, Total 6.5 g/dL (6.4-8.2); Sodium Level 142 mmol/L (136-145)
[2020-09-04] MEDS: JUVEN PACKET PO SCH ×2 (08:56→21:00)
[2020-09-04] MEDS: atenoloL 50 MG TAB PO SCH (09:11)
[2020-09-04] MEDS: MORPHINE 2 MG/ML SYR IV PRN ×3 (09:11→21:17)
[2020-09-04] MEDS ORDERED: ALPRAZOLAM 0.5 MG TABLET PO ONE (16:00)
[2020-09-04] MEDS: Meropenem 500 MG in NA CHLORIDE 0.9% 100 ML IV SCH (16:38)
[2020-09-04] MEDS ORDERED: Meropenem 500 MG VIAL IV SCH (18:00)
[2020-09-05] MEDS: Meropenem 500 MG in NA CHLORIDE 0.9% 100 ML IV SCH ×3 (00:48→16:22)
[2020-09-05] MEDS: NA CHLORIDE 0.9% 1,000 ML IV SCH ×2 (04:26→08:52)
[2020-09-05] MEDS: Oxycodone HCl/Acetaminophen 1 TAB TAB PO PRN ×3 (05:50→21:18)
[2020-09-05] MEDS: atenoloL 50 MG TAB PO SCH (08:41)
[2020-09-05] MEDS: JUVEN PACKET PO SCH ×2 (08:42→21:00)
[2020-09-05] MEDS: MORPHINE 2 MG/ML SYR IV PRN ×2 (08:48→16:25)
--- NOTE | 2020-09-05 13:25 | P.HP ---
Certification for Inpatient Patient admitted to: Inpatient With expected LOS: >2 Midnights Patient will require the following post-hospital care: None Practitioner: I am a practitioner with admitting privileges, knowledge of patient current condition, hospital course, and medical plan of care. Services: Services provided to patient in accordance with Admission requirements found in Title 42 Section 412.3 of the Code of Federal Regulations Patient History Date of Service: 09/03/20 Reason for admission: Multi-drug resistant urinary tract infection History of Present Illness: Patient is a 30-year-old female who presents to the hospital with dysuria. Patient has been having burning. According to her significant other patient leaks stool into her vaginal area because she needs assistance with going to the restroom. If she is not able to get to the restroom in time she has a leakage of stool which causes her infections. She is not able to get around without assistance. She has a history of spina bifida. Patient will continue with wound healing center for Stage IV decubitus ulcers. Allergies adhesive tape Allergy (Verified 07/29/19 01:10) Rash Latex, Natural Rubber Allergy (Verified 07/29/19 01:10) Rash Sulfa (Sulfonamide Antibiotics) Allergy (Verified 07/29/19 01:10) Hives/Rash sulfamethoxazole [From Bactrim] Allergy (Verified 07/29/19 01:10) Hives trimethoprim [From Bactrim] Allergy (Verified 07/29/19 01:10) Hives vancomycin Allergy (Verified 07/29/19 01:10) Hives/Rash Adhesives Allergy (Uncoded 07/08/17 16:36) Unknown Home Medications: Atenolol [Tenormin] 100 mg PO DAILY 02/17/20 Diphenhydramine [Benadryl*] 50 mg PO BEDTIME PRN PRN 02/17/20 Oxycodone HCl/Acetaminophen [Oxycodone-Acetaminophen 10-325] 1 each PO Q6HP PRN 02/17/20 Hans [Hans*] 1 pkt PO BID #60 powd.pack 07/11/20 Meropenem [Merrem*] 500 mg IV Q12HR 5 Days vial 07/11/20 - Past Medical/Surgical History Has patient received pneumonia vaccine in the past: No Diabetic: No -: Stage 4 decubitus ulcer -: Spina Bifida -: MRSA -: scoliosis -: HTN -: GERD -: Osteomyelitis -: Multiple back surgeries -: Right great toe amputated -: bowel surgery cecostomy -: Suprapubic stoma -: HYDROMETER FINISHER shunt - Family History Mother Medical History: Hypertension, Diabetes, Other (see notes) Notes: Lupus Father Medical History: Hypertension, Diabetes Notes: Hyperlipidemia - Social History Smoking Status: Never smoker Alcohol use: No CD- Drugs: No Review of Systems 10-point ROS is otherwise unremarkable Physical Examination - Vital Signs Temperature: 97.4 F Blood Pressure: 130/77 Pulse: 56 Respirations: 16 Pulse Ox (%): 96 - Physical Exam General: Alert, In no apparent distress, Oriented x3 HEENT: Atraumatic, PERRLA, Mucous membr. moist/pink, EOMI, Sclerae nonicteric Neck: Supple, 2+ carotid pulse no bruit, No LAD, Without JVD or thyroid abnormality Respiratory: Clear to auscultation bilaterally, Normal air movement Cardiovascular: Regular rate/rhythm, Normal S1 S2, No murmurs Gastrointestinal: Normal bowel sounds, Soft and benign, Non-distended, No tenderness Musculoskeletal: No clubbing, No swelling, No tenderness Integumentary: No rashes Neurological: Sensation intact, Cranial nerves 3-12 intact, Abnormal strength, Abnormal affect Lymphatics: No axilla or inguinal lymphadenopathy - Studies Microbiology Data (last 24 hrs): 09/03/20 11:30 Clean Catch Urine [place] Count - Final >100,000 CFU/ML. 09/03/20 11:30 Clean Catch Urine - Final Escherichia Coli Esbl Assessment & Plan - Problems (Diagnosis) (1) Infection due to ESBL-producing Escherichia coli Current Visit: No Status: Acute (2) Nausea & vomiting Onset Date: 07/11/17 Current Visit: No Status: Acute (3) Hypertension Onset Date: 06/01/17 Current Visit: No Status: Chronic Qualifiers: (4) Spina bifida Onset Date: 06/01/17 Current Visit: No Status: Chronic Qualifiers: (5) Stage II pressure ulcer of left buttock Current Visit: No Status: Chronic (6) HYDROMETER FINISHER (ventriculoperitoneal) shunt status Onset Date: 06/01/17 Current Visit: No Status: Chronic (7) Stage II pressure ulcer of back Current Visit: No Status: Resolved - Plan 1. Continue with IV hydration 2. Continue with IV antibiotics 3. Continue with pain control 4. Arrange for PICC line placement 5. Serial H&H, and we will monitor CBC, BMP, LFTs and lipase along with electrolytes. 6. Arrange for surgical follow-up for possible evaluation to see if a colostomy would be beneficial 7. GI and DVT prophylaxis Discharge Plan: Home Plan to discharge in: Greater than 2 days - Advance Directives Does patient have a Living Will: No Does patient have a Durable POA for Healthcare: No - Code Status/Comfort Care Code Status Assessed: Yes Code Status: Full Code Critical Care: No Time Spent Managing PTS Care (In Minutes): 35
--- NOTE | 2020-09-05 13:43 | P.PN ---
Subjective Date of Service: 09/04/20 Subjective: No new changes, No C/O voiced, Improving Review of Systems 10-point ROS is otherwise unremarkable Physical Examination - Vital Signs Temperature: 97.4 F Blood Pressure: 130/77 Pulse: 56 Respirations: 16 Pulse Ox (%): 96 - Physical Exam General: Alert, In no apparent distress, Oriented x3 Respiratory: Clear to auscultation bilaterally, Normal air movement Cardiovascular: Regular rate/rhythm, Normal S1 S2, No murmurs Gastrointestinal: Normal bowel sounds, Soft and benign, Non-distended, No tenderness Integumentary: Pressure ulcer Neurological: Sensation intact, Cranial nerves 3-12 intact - Studies Microbiology Data (last 24 hrs): 09/03/20 11:30 Clean Catch Urine [place] Count - Final >100,000 CFU/ML. 09/03/20 11:30 Clean Catch Urine - Final Escherichia Coli Esbl Medications List Reviewed: Yes Assessment & Plan - Problems (Diagnosis) (1) Infection due to ESBL-producing Escherichia coli Current Visit: No Status: Acute (2) Nausea & vomiting Onset Date: 07/11/17 Current Visit: No Status: Acute (3) Hypertension Onset Date: 06/01/17 Current Visit: No Status: Chronic Qualifiers: (4) Spina bifida Onset Date: 06/01/17 Current Visit: No Status: Chronic Qualifiers: (5) Stage II pressure ulcer of left buttock Current Visit: No Status: Chronic (6) BOOT TRIMMER (ventriculoperitoneal) shunt status Onset Date: 06/01/17 Current Visit: No Status: Chronic (7) Stage II pressure ulcer of back Current Visit: No Status: Resolved - Plan 1. Continue with IV hydration 2. Continue with IV antibiotics 3. Continue with pain control 4. Arrange for PICC line placement 5. Serial H&H, and we will monitor CBC, BMP, LFTs and lipase along with electrolytes. 6. Arrange for surgical follow-up for possible evaluation to see if a colostomy would be beneficial 7. Wound healing consultation 8. GI and DVT prophylaxis Discharge Plan: Home Plan to discharge in: Greater than 2 days - Advance Directives Does patient have a Living Will: No Does patient have a Durable POA for Healthcare: No - Code Status/Comfort Care Code Status: Full Code Critical Care: No Time Spent Managing PTS Care (In Minutes): 45
--- NOTE | 2020-09-05 13:49 | P.PN ---
Subjective Date of Service: 09/05/20 No new complaints. Awaiting for PICC line placement. Once this is done then anticipate discharge with IV antibiotics and outpatient wound healing Center. Review of Systems 10-point ROS is otherwise unremarkable Physical Examination - Vital Signs Temperature: 97.4 F Blood Pressure: 130/77 Pulse: 56 Respirations: 16 Pulse Ox (%): 96 - Physical Exam General: Alert, In no apparent distress, Oriented x3 Respiratory: Clear to auscultation bilaterally, Normal air movement Cardiovascular: Regular rate/rhythm, Normal S1 S2, No murmurs Gastrointestinal: Normal bowel sounds, Soft and benign, Non-distended, No tenderness Integumentary: Pressure ulcer Neurological: Abnormal gait, Abnormal strength, Abnormal sensation - Studies Microbiology Data (last 24 hrs): 09/03/20 11:30 Clean Catch Urine [place] Count - Final >100,000 CFU/ML. 09/03/20 11:30 Clean Catch Urine - Final Escherichia Coli Esbl Medications List Reviewed: Yes Assessment & Plan - Problems (Diagnosis) (1) Infection due to ESBL-producing Escherichia coli Current Visit: No Status: Acute (2) Nausea & vomiting Onset Date: 07/11/17 Current Visit: No Status: Acute (3) Hypertension Onset Date: 06/01/17 Current Visit: No Status: Chronic Qualifiers: (4) Spina bifida Onset Date: 06/01/17 Current Visit: No Status: Chronic Qualifiers: (5) Stage II pressure ulcer of left buttock Current Visit: No Status: Chronic (6) DIAMOND PICKER (ventriculoperitoneal) shunt status Onset Date: 06/01/17 Current Visit: No Status: Chronic (7) Stage II pressure ulcer of back Current Visit: No Status: Resolved - Plan Continue with plan of care as mentioned below: 1. Hep-Lock IV 2. Continue with IV antibiotics 3. Continue with pain control 4. Arrange for PICC line placement; it is supposedly to be done today 5. Monitor antibiotic levels and renal function 6. Patient may benefit from a diverting colostomy but may need to have surgical follow-up to discuss this option 7. Wound healing consultation 8. GI and DVT prophylaxis Discharge Plan: Home Plan to discharge in: Greater than 2 days - Advance Directives Does patient have a Living Will: No Does patient have a Durable POA for Healthcare: No - Code Status/Comfort Care Code Status: Full Code Critical Care: No Time Spent Managing PTS Care (In Minutes): 35
[2020-09-05] MEDS ORDERED: Meropenem 1000 MG/VIAL IV SCH (21:00)
[2020-09-05] MEDS: ZOLPIDEM TARTRATE 5 MG TABLET PO SCH (21:18)
[2020-09-05] MEDS ORDERED: Meropenem 1 GM/100 ML BAG ONE (22:03)
[2020-09-06 07:00] LABS: Absolute Lymphocytes (CBC) 1.8 K/uL (0.7-4.9); Basophils % 0.5 % (0-1.3); Hematocrit 34.4 % (36.0-45.0); Lymphocytes % 27.5 % (15.3-44.8); MPV 8.2 fL (7.6-11.3); RBC Red Blood Cell Count 3.88 M/uL (3.86-4.86)
[2020-09-06 07:33] LABS: BUN Blood Urea Nitrogen 3 mg/dL (7-18); Bicarbonate 27 mmol/L (21-32); Glucose Level 95 mg/dL (74-106); Phosphorus 3.6 mg/dL (2.5-4.9); Potassium 3.4 mmol/L (3.5-5.1); Sodium Level 140 mmol/L (136-145)
[2020-09-06] MEDS: JUVEN PACKET PO SCH ×2 (09:00→20:42)
[2020-09-06] MEDS: atenoloL 50 MG TAB PO SCH (09:51)
[2020-09-06] MEDS: Oxycodone HCl/Acetaminophen 1 TAB TAB PO PRN ×2 (09:52→17:02)
[2020-09-06] MEDS: Meropenem 1,000 MG in NA CHLORIDE 0.9% 100 ML IV SCH ×2 (10:34→20:44)
[2020-09-06] MEDS: MORPHINE 2 MG/ML SYR IV PRN (13:20)
--- NOTE | 2020-09-06 15:48 | P.PN ---
Subjective Date of Service: 09/06/20 Chief Complaint: Multi-drug resistant urinary tract infection Patient seen and examined at bedside. No acute complaints-is handling antibiotic therapy well. Denies N/V/D, SOB, chest pain. Review of Systems 10-point ROS is otherwise unremarkable Physical Examination - Vital Signs Temperature: 98.4 F Blood Pressure: 141/83 Pulse: 67 Respirations: 18 Pulse Ox (%): 98 - Physical Exam General: Alert, In no apparent distress, Oriented x3, Cooperative HEENT: Atraumatic, Normocephalic, PERRLA, Mucous membr. moist/pink Neck: Supple, 2+ carotid pulse no bruit, JVD not distended, No Thyromegaly Respiratory: Clear to auscultation bilaterally, Normal air movement Cardiovascular: No edema, Normal pulses, Regular rate/rhythm, Normal S1 S2 Capillary refill: <2 Seconds Gastrointestinal: Normal bowel sounds, Non-distended, W/out succussion splash Musculoskeletal: No clubbing, No swelling Integumentary: Other (stage 4 coccyx ulcer improving. Measuring 2.5x2.6 cm. Periwound tissue is clean dry and intact with no signs of acute infection.) Neurological: Abnormal gait - Studies Medications List Reviewed: Yes Assessment And Plan - Plan Assessment: -ESBL E. coli UTI -sacral coccyx stage 4 wound Plan: -continue meropenum at this time -continue current wound care management-wound shows signs of improvement and is clan dry and intact -continue to monitor CBC and BMP -medical management per primary team -continue to monitor for signs of infection. Plan of care discussed with Dr. Ibarra Thank you for consultation
--- NOTE | 2020-09-06 16:10 | P.PN ---
Subjective Date of Service: 09/06/20 Chief Complaint: Multi-drug resistant urinary tract infection Subjective: Improving Physical Examination - Vital Signs Temperature: 98.4 F Blood Pressure: 141/83 Pulse: 67 Respirations: 18 Pulse Ox (%): 98 - Physical Exam General: In no apparent distress HEENT: Atraumatic Neck: Supple Respiratory: Clear to auscultation bilaterally, Normal air movement Cardiovascular: Normal pulses, Regular rate/rhythm Gastrointestinal: Normal bowel sounds, Soft and benign, Non-distended Neurological: Normal speech - Studies Medications List Reviewed: Yes Assessment & Plan Discharge Plan: Home Plan to discharge in: 24 Hours Physician Review Additional Text: Impression: Recurrent UTI, urine culture positive for E coli-ESBL Hypertension Spina bifida Stage II pressure ulcer to the left buttocks Stage II pressure ulcer to the back 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 Patient was a difficult stick for PICC line. This was not able to be done. Options address with patient including long-term acute care facility placement verses Port-A-Cath versus central line. Patient prefers to have central line in place. Discuss this with her PCP. PCP and patient agree with central line placement to continue IV antibiotic therapy- Invanz as an outpatient for 10 days. Spoke with surgery who will plan for procedure tomorrow. Spoke with social human services assistants to help arrange for IV antibiotic therapy. Continue current medications. Anticipate discharge tomorrow after placement of central line Time Spent Managing Pts Care (In Minutes): 55
[2020-09-06] MEDS: ZOLPIDEM TARTRATE 5 MG TABLET PO SCH (20:45)
[2020-09-06] MEDS ORDERED: MORPHINE 2 MG/ML SYR IV ONE (21:28)
[2020-09-07 06:12] LABS: BUN Blood Urea Nitrogen 5 mg/dL (7-18); Bicarbonate 30 mmol/L (21-32); Glucose Level 101 mg/dL (74-106); Magnesium 2.2 mg/dL (1.8-2.4); Potassium 3.6 mmol/L (3.5-5.1); Sodium Level 144 mmol/L (136-145)
[2020-09-07 06:18] LABS: Absolute Lymphocytes (CBC) 1.7 K/uL (0.7-4.9); Basophils % 0.6 % (0-1.3); Hematocrit 39.1 % (36.0-45.0); Lymphocytes % 25.3 % (15.3-44.8); MPV 8.2 fL (7.6-11.3); RBC Red Blood Cell Count 4.37 M/uL (3.86-4.86)
[2020-09-07] MEDS: Meropenem 1,000 MG in NA CHLORIDE 0.9% 100 ML IV SCH (07:49)
[2020-09-07] MEDS: atenoloL 50 MG TAB PO SCH (07:50)
[2020-09-07] MEDS: JUVEN PACKET PO SCH (07:50)
[2020-09-07] MEDS ORDERED: Ringers Lactate 1,000 ML IV ONE (08:11)
[2020-09-07] MEDS ORDERED: MIDAZOLAM HCL 2 MG/2 ML INJ ONE (08:13)
[2020-09-07] MEDS ORDERED: LIDOCAINE 1% MPF 5 ML VIAL ONE (08:13)
[2020-09-07] MEDS ORDERED: propofoL 200 MG/20 ML VIAL IV ONE (08:13)
[2020-09-07] MEDS ORDERED: NS 0.9% VIAL 30 ML ONE (08:13)
[2020-09-07] MEDS ORDERED: FENTANYL CITR 100 MCG/2 ML ONE (08:13)
[2020-09-07] MEDS: LIDOCAINE 1% MPF 30 ML VIAL ONE ×2 (08:53→08:55)
[2020-09-07] MEDS ORDERED: SILVER NITRATE 1 APPL TOP SCH (09:00)
[2020-09-07] MEDS ORDERED: EPHEDRINE SULF 50 MG/ML VIAL ONE (09:00)
[2020-09-07] MEDS ORDERED: NS 0.9% VIAL 10 ML ONE (09:00)
[2020-09-07] MEDS ORDERED: ALBUTEROL INHALER 60 PUFF/8 GM IH ONE (09:00)
--- NOTE | 2020-09-07 09:16 | P.BOP ---
Preoperative diagnosis: multidrug resistant UTI, poor peripheral access, cerebral palsy Postoperative diagnosis: same, scoliosis Primary procedure: 1. Placement of central line under anesthesia left subclavian vein Secondary procedure: 2. interpretation of fluoroscopy Other procedure(s): 3. left neck and subclavian ultrasound Estimated blood loss: <10cc Specimen: none Findings: see dicta Anesthesia: General Complications: None Implants: triple lumen central line Transferred to: Recovery Room Condition: Good
[2020-09-07] MEDS ORDERED: KETOROLAC 30 MG/ML INJ ONE ×2 (09:18→13:32)
[2020-09-07] MEDS ORDERED: dexAMETHasone 10 MG/ML VIAL ONE (09:18)
[2020-09-07] MEDS ORDERED: ONDANSETRON 4 MG/2 ML VIAL ONE ×2 (09:18→13:32)
[2020-09-07] MEDS: MORPHINE 4 MG/ML SYR ONE ×4 (09:21→10:20)
--- NOTE | 2020-09-07 09:52 | RAD REPORT ---
EXAM DESCRIPTION: RAD - Fluoroscopy <1 Hour - 09/07/2020 9:40 am CLINICAL HISTORY: Venous catheter insertion. CENTRAL LINE PLACEMENT COMPARISON: No comparisons FINDINGS: Fluoroscopy time 1.3 minutes.
--- NOTE | 2020-09-07 10:09 | CON ---
Date of Consultation: 09/06/2020 History Of Present Illness: This patient was seen at the bedside. This is the case of a 30-year-old patient with multiple medical problems, treated with chronic IV antibiotics. Dr. Reynolds her primary doctor in this hospital asked me for central line, since they have any issues with peripheral access on her and also she is going to require long-term antibiotics. She has history of spina bifida with multiple contractions and body deformity making a challenge to put any central line at bedside, so qian ervin offered them doing under fluoroscopy in a control setting in OR. Allergies: INCLUDE LATEX, SULFA, VANCOMYCIN, AND BACTRIM. Medications: Include atenolol, Benadryl, Hans, meropenem. Past Medical History: Spina bifida, scoliosis, hypertension, osteomyelitis, multiple back surgeries, DOGMAN/WOMAN shunt, previous bowel surgery for cecostomy with a suprapubic ostomy, right great toe amputated. Past Surgical History: As above. Family History: Include diabetes and hypertension. Social History: She does not smoke. She does not drink alcohol. Review of Systems: Ten points otherwise unremarkable. See H and P. Physical Examination: General: The patient is awake and alert. The patient has multiple body habitus that may represent a challenge for the central line due to her body habitus. There is contractions on the lower and uppe r body with abnormalities including scoliosis. Abnormal findings including scoliosis. HEENT: Pupils anicteric. Neck: Supple. Apparently, there is a shunt on the right side. Respiratory: Bilateral breath sounds. Neurologic: Oriented x3. Abdomen: Soft and depressible. Laboratory Data: Blood work shows a WBC count of 6.5, hemoglobin of 11.2. INR of 1.05. Potassium i s 3.5. Assessment: A 30-year-old patient need for central line, this represent a challenge due to multiple body habitus abnormalities including the scoliosis. We will proceed with central line placement, but we will like to do it in a control setting that include anesthetic fluoroscopy, ultrasound. We tryi edel to localize the anatomy since it may be a challenge in her case. She understand risks including, but not limited to infection, bleeding, damage to adjacent structures, anesthesia complication, pneum othorax, hemothorax, DVTs, PE, inability to put a central line, VT and even . She also understa nds this may not relieve the symptoms. She may need more than one surgical intervention. She unders tands as soon as the IV antibiotics finished, we should remove the central line. DAVID Voice ID: [id number] Report ID: [id number]
--- NOTE | 2020-09-07 10:27 | RAD REPORT ---
EXAM DESCRIPTION: RAD - Chest Single View - 09/07/2020 9:54 am CLINICAL HISTORY: s/p central line Chest pain. COMPARISON: Chest Single View dated 07/10/2020; Chest Single View dated 02/16/2020; Chest Single View dated 10/05/2019; Chest Single View dated 08/20/2019 FINDINGS: Portable technique limits examination quality. The left venous catheter has been placed with tip in the SVC. No postprocedure pneumothorax.
[2020-09-07 10:29] VITALS: O2SAT 99
--- NOTE | 2020-09-07 10:43 | P.DS ---
Admission Date: 09/03/20 Discharge Date: 09/07/20 Primary Care Provider: Dr. Kohler Disposition: DC HOME/HOME HEALTH CARE Discharge Condition: GOOD Reason for Admission: Multi-drug resistant urinary tract infection Consultations: Surgery-Dr. Kilgore Procedures: COVID: Negative CT Ab: FINDINGS: The lower lung yang are clear. Imaged portions of the liver and spleen show no suspicious findings on non- contrast imaging.Gallstone is present in the gallbladder. The pancreas and adrenal glands are normal. No pathologic lymphadenopathy in the abdomen or pelvis. Tiny calculus in the superior right kidney without hydronephrosis. 4 mm stone is seen inferior left kidney without hydronephrosis. Thickening of the urinary bladder wall is, moderately severe. No bowel obstruction, free air, free fluid or abscess. Moderate stool is retained throughout the colon. Right lower quadrant ostomy is noted. Severe scoliosis and spina bifida changes are noted. Chronic osteomyelitis of the left ischium is seen with adjacent large decubitus ulceration is seen. Shunt tubing is present in the abdomen. IMPRESSION: Bilateral renal calculi are seen without hydronephrosis. Cholelithiasis. Thickening of the urinary bladder may indicate cystitis. Chronic osteomyelitis left ischium with associated large decubitus ulcer. Central line placement: Procedure 09/07/2020 Preop diagnosis: Multidrug resistant UTI, poor peripheral access, cerebral palsy Postop diagnosis: Same, scoliosis Primary procedure: Placement of central line under anesthesia of left subclavian vein Secondary procedure: Interpretation of fluoroscopy Other procedure: Left neck/subclavian ultrasound Complications; none CXR: FINDINGS: Portable technique limits examination quality. The left venous catheter has been placed with tip in the SVC. No postprocedure pneumothorax. 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 Patient presented with increased dysuria. Significant other reports leakage of stool into the vaginal area. Patient was admitted for further evaluation and treatment. Hospital Course: Patient presented with dysuria. Patient with history of recurrent UTI. Urine culture was positive for E coli-ESBL. Patient had difficult peripheral access to continue IV antibiotic therapy. Surgery was consulted for central line placement. Central line placed. At discharge social work has arranged for IV Invanz 1 g to be continued as outpatient for 10 days. Plan of care discussed with her PCP-Dr. Kohler. Recommend follow up with PCP in 1 week to monitor her care. After treatment central line can be removed by PCP. Patient with hypertension. At discharge she will continue with her medication of atenolol 100 mg daily. Patient with spina bifida, stage II pressure ulcer to the left buttocks, stage II pressure ulcer to the back. Wound care evaluated patient with recommendations. Continue with current wound care instructions including silver nitrate to wound every Sunday, and Sunday. Recommend to continue with wound care follow up at the wound Care Center as directed. Patient with chronic pain. At discharge patient will continue with her medications of oxycodone 10/325 mg 1 pill every 6 hr as needed for pain. Recommend follow up with pain management to further monitor and address. Vital Signs/Physical Exam: Temp Pulse Resp BP Pulse Ox 985 F H 64 20 144/99 H 97 09/07/20 10:23 09/07/20 10:23 09/07/20 10:09/07/20 10:09/07/20 08:00 General: Alert, In no apparent distress, Oriented x3, Cooperative HEENT: Atraumatic Neck: Supple Respiratory: Clear to auscultation bilaterally, Normal air movement Cardiovascular: Normal pulses, Regular rate/rhythm Gastrointestinal: Normal bowel sounds Neurological: Normal speech, Other (Patient with spina bifida. Scoliosis noted.) Laboratory Data at Discharge: WBC 6.80 K/uL (4.3-10.9) 09/07/20 05:42 Hgb 12.6 g/dL (12.0-15.0) 09/07/20 05:42 Hct 39.1 % (36.0-45.0) 09/07/20 05:42 Plt Count 279 K/uL (152-406) 09/07/20 05:42 PT 12.4 SECONDS (9.5-12.5) 09/04/20 05:39 INR 1.05 09/04/20 05:39 APTT 32.4 SECONDS (24.3-36.9) 09/04/20 05:39 Sodium 144 mmol/L (136-145) 09/07/20 05:42 Potassium 3.6 mmol/L (3.5-5.1) 09/07/20 05:42 BUN 5 mg/dL (7-18) L 09/07/20 05:42 Creatinine 0.29 mg/dL (0.55-1.3) L 09/07/20 05:42 Glucose 101 mg/dL (74-106) 09/07/20 05:42 Phosphorus 3.6 mg/dL (2.5-4.9) 09/06/20 06:19 Magnesium 2.2 mg/dL (1.8-2.4) 09/07/20 05:42 Total Bilirubin 0.1 mg/dL (0.2-1.0) L 09/04/20 05:39 AST 13 U/L (15-37) L 09/04/20 05:39 ALT 13 U/L (12-78) 09/04/20 05:39 Alkaline Phosphatase 158 U/L (45-117) H 09/04/20 05:39 Lipase 78 U/L (73-393) 09/03/20 11:12 Home Medications: Atenolol [Tenormin] 100 mg PO DAILY 02/17/20 Diphenhydramine [Benadryl*] 50 mg PO BEDTIME PRN PRN 02/17/20 Oxycodone HCl/Acetaminophen [Oxycodone-Acetaminophen 10-325] 1 each PO Q6HP PRN 02/17/20 Hans [Hans*] 1 pkt PO BID #60 powd.pack 07/11/20 Silver Nit [Silver Nitrate Applicators*] 1 appl TOP SEECOM #1 packet 09/07/20 New Medications: RX: Silver Nit [Silver Nitrate Applicators*] 1 appl TOP SEECOM #1 packet Physician Discharge Instructions: Follow up with PCP within 1 week. Patient presented with dysuria. Patient with history of recurrent UTI. Urine culture was positive for E coli-ESBL. Patient had difficult peripheral access to continue IV antibiotic therapy. Surgery was consulted for central line placement. Central line placed. At discharge social work has arranged for IV Invanz 1 g to be continued as outpatient for 10 days. Plan of care discussed with her PCP-Dr. Kohler. Recommend follow up with PCP in 1 week to monitor her care. After treatment central line can be removed by PCP. Patient with hypertension. At discharge she will continue with her medication of atenolol 100 mg daily. Patient with spina bifida, stage II pressure ulcer to the left buttocks, stage II pressure ulcer to the back. Wound care evaluated patient with recommendations. Continue with current wound care instructions including silver nitrate to wound every Sunday, and Sunday. Recommend to continue with wound care follow up at the wound Care Center as directed. Patient with chronic pain. At discharge patient will continue with her medications of oxycodone 10/325 mg 1 pill every 6 hr as needed for pain. Recommend follow up with pain management to further monitor and address. Diet: Regular Activity: Fall precautions Followup: Unknown,U [Primary Care Provider] - Time spent managing pt's care (in minutes): 55
[2020-09-07] MEDS: Oxycodone HCl/Acetaminophen 1 TAB TAB PO PRN (12:01)
[2020-09-07] MEDS ORDERED: ROCURONIUM 50 MG/5 ML VIAL IV ONE ×2 (12:06→12:56)
[2020-09-07] MEDS ORDERED: GLYCOPYRROLATE 0.2 MG/ML SYR ONE (13:32)
[2020-09-07] MEDS ORDERED: NEOSTIGMINE 1 MG/ML -5 ML ONE (13:32)
[2020-09-07 13:40] VITALS: BP 120/71; TEMP 98.2
--- NOTE | 2020-09-07 14:21 | OP ---
Date of Procedure: 09/07/2020 Surgeon: Saúl Kilgore MD Preoperative Diagnoses: Multi-drug resistant urinary tract infection, need for IV antibiotics, poor peripheral access, cerebral palsy, scoliosis. Postoperative Diagnoses: Multi-drug resistant urinary tract infection, need for IV antibiotics, poor peripheral access, cerebral palsy, scoliosis. Procedures Performed: 1.Placement of a central line under anesthesia, left subclavian vein. 2.Interpretation of fluoroscopy. 3.Left neck and left subclavian ultrasound. Estimated Blood Loss: Less than 10 cc. Specimen: None. Anesthesia: General plus local. Implant: Triple-lumen central line. Indications: This is a case of a 30-year-old patient in need of IV antibiotics. They cannot get any other access, so Dr. Reynolds called me to put a central line in this patient. We fully explained to her the challenge this brings out since the patient has scoliosis and deformity of her body making an atomy structures little bit of a challenge, so we do not want to do this while the patient is moving. She is afraid. She is going to get anxious, so we put her under anesthesia. Also, we need perfect setting and all the equipment that we need including fluoroscopy ultrasound to trying to find this v ein without causing any other comorbidities. The patient understood the risks of central line placem ent which include, but not limited to infection, bleeding, damage to adjacent structures, anesthesia complication, pneumothorax, hemothorax, PE, [place], and even . She also understands this may not re lieve the symptoms. She might need more than one surgical intervention. She understands as soon as the antibiotic is finished, she should ask her primary doctor to remove the central line. She signed a consent. Description Of Procedure: The patient brought to the operating room, placed in supine position. Ane sthesia was done without complication. Obviously, they have their own challenges due to the patient' s body habitus. We were able to prep and drape the bilateral neck and bilateral chest in the usual s terile fashion. We tried to go in the left side first which was the area that we at least identified some of the structures and landmarks. After that, a time-out was called. We did an ultrasound of t he left neck and left subclavian to make sure the subclavian and jugular veins were patent. Then, af ter that, we proceeded to place the patient in Trendelenburg position. The left subclavian vein was identified. An 18-gauge needle was placed over there and followed by a guidewire through it. Needle was removed. The guidewire was passed through and attempted to go into the jugular veins, but with the help of fluoroscopy, we were able to manage to bring that spontaneously to the innominate vessels with the patient. Once the catheter was in the superior vena cava, then, we proceeded to place a ce ntral line using Seldinger technique. Excellent backflow and inflow. The line was filled with hepar inized solution. The line was secured in place with 2-0 nylon and covered with sterile dressings. T he patient tolerated the procedure well. The patient was brought back to normal position. The patie nt was sent to recovery in stable condition and chest x-ray was ordered stat. ADITHYA/TENZIN Voice ID: [id number] Report ID: [id number]
== END 2020-09-07 13:30 | disposition home health service (06) | DRG 689 ==
LOC: ER 10:35 → ERHOLD 13:35 → 2ND 16:40
PROVIDERS: ADMIT Hospitalist; ATTEND Family Medicine
PROC: 02HV33Z Insertion of Infusion Device into Superior Vena Cava, Percutaneous Approach (ICD-10-PCS; principal; 2020-09-07 07:30)
DX: N39.0 Urinary tract infection, site not specified (principal); L89.154 Pressure ulcer of sacral region, stage 4; Z16.12 Extended spectrum beta lactamase (ESBL) resistance; L89.322 Pressure ulcer of left buttock, stage 2; L89.102 Pressure ulcer of unspecified part of back, stage 2; I10 Essential (primary) hypertension; K21.9 Gastro-esophageal reflux disease without esophagitis; Q05.9 Spina bifida, unspecified; M41.9 Scoliosis, unspecified; G80.9 Cerebral palsy, unspecified; B96.20 Unspecified Escherichia coli [E. coli] as the cause of diseases classified elsewhere; Z88.1 Allergy status to other antibiotic agents; Z91.040 Latex allergy status; Z88.5 Allergy status to narcotic agent; Z86.14 Personal history of Methicillin resistant Staphylococcus aureus infection; Z98.2 Presence of cerebrospinal fluid drainage device; Z91.048 Other nonmedicinal substance allergy status; Z20.822 Contact with and (suspected) exposure to COVID-19
CPT/HCPCS: 36415; 71045; 74176; 76000; 76377; 80048; 80053; 80076; 81003; 81015; 81025; 83605; 83690; 83735; 84100; 84145; 85025; 85610; 85730; 87077; 87086; 87088; 87186; 96361; 96365; 96366; 96375; 99251; 99285; J1100; J1335; J1644; J2185; J2250; J2270; J2405; J2704; J2710; J3010; J7030; J7120; U0003

== ENCOUNTER 2020-10-06 11:20 | Inpatient (IN) | payer OTHER ==
--- OUTSIDE RECORDS SUMMARY | 2020-10-06 12:00 | XMS REPORT | Continuity of Care Document ---
:1990 Author Organization [facility] t Address [address] [place] [address] Care Team Providers Name Role Phone Bryan, Lab Main Attending Clinician Unavailable Doctor Unassigned, Name Attending Clinician Unavailable Cl FERRARA, A Attending Clinician Musa FERRARA, P Attending Clinician Jeff Meraz MD, Kermit Davila Attending Clinician + Problems This patient has no known problems. Allergies, Adverse Reactions, Alerts This patient has no known allergies or adverse reactions. Social History Social Habit Start Date Stop Date Quantity Comments Source Sex Assigned At [facility] Medications This patient has no known medications. Procedures This patient has no known procedures. Encounters Start End Encounter Admission Attending Care Care Encounter Source Date/Time Date/Time Type Type Clinicians Facility Department ID 2020-09-17 2020-09-17 Prototype Engineer Manager Erika Adams [facility] 1.2.840.114 [id number] 16:26:39 16:41:39 Visit Lab Main [place] [id number] [place] [id number] [phone] [address] 2020-09-17 2020-09-17 Orders Doctor HURST 1.2.840.114 [id number] 00:00:00 00:00:00 Only Unassigned, JESSICA [id number] [facility] [id number] [id number] 2020-07-05 2020-07-05 Prototype Engineer Manager Erika Adams [facility] 1.2.840.114 [id number] 14:05:50 14:20:50 Visit Lab Main [place] [id number] [place] [id number] [place] [phone] [address] 2020-07-05 2020-07-05 Orders Doctor HURST 1.2.840.114 [id number] 00:00:00 00:00:00 Only Unassigned, JESSICA [id number] [facility] [id number] [id number] 2020-05-17 2020-05-17 Orders Doctor HURST 1.2.840.114 [id number] 00:00:00 00:00:00 Only Unassigned, JESSICA [id number] [facility] [id number] [id number] [id number] 2020-03-18 2020-03-18 Orders Doctor HURST 1.2.840.114 [id number] 00:00:00 00:00:00 Only Unassigned, JESSICA [id number] [facility] [id number] [id number] [id number] 2020-03-09 2020-03-09 Orders Doctor HURST 1.2.840.114 [id number] 00:00:00 00:00:00 Only Unassigned, JESSICA [id number] [facility] 4.2.7.2.686 [id number] [id number] 2020-01-05 2020-01-05 Orders Doctor HURST 1.2.840.114 [id number] 00:00:00 00:00:00 Only Unassigned, JESSICA [id number] [facility] 4.2.7.2.686 [id number] [id number] 2019-12-18 2019-12-18 Telephone Cl [facility] 1.2.840.114 [id number] 00:00:00 00:00:00 Wondiful A [place] [id number] [place] [id number] Profess[place] [phone] [address] 2019-12-16 2019-12-16 Telephone Cl [facility] 1.2.840.114 [id number] 00:00:00 00:00:00 Wondiful A [place] [id number] [place] 4.2.7.2.686 Professio [phone] [address] 2019-12-09 2019-12-09 Orders Doctor NATALI 1.2.840.114 [id number] 00:00:00 00:00:00 Only Unassigned, JESSICA [id number] [facility] 4.2.7.2.686 [id number] [id number] 2019-11-24 2019-11-24 Telephone Cl [facility] 1.2.840.114 [id number] 00:00:00 00:00:00 Wondiful A [place] [id number] [place] [id number] Professio [phone] [address] 2019-11-24 2019-11-24 Orders Doctor NATALI 1.2.840.114 [id number] 00:00:00 00:00:00 Only Unassigned, JESSICA [id number] [facility] 4.2.7.2.686 [id number] 009 2019-11-07 2019-11-07 Orders Doctor NATALI 1.2.840.114 [id number] 00:00:00 00:00:00 Only Unassigned, JESSICA [id number] [facility] 4.2.7.2.686 [id number] [id number] 2019-11-05 2019-11-05 Telephone Cl [facility] 1.2.840.114 [id number] 00:00:00 00:00:00 Wondiful A [place] [id number] [place] 4.2.7.2.686 Professio [phone] [address] 2019-10-30 2019-10-30 Telephone Cl [facility] 1.2.840.114 [id number] 00:00:00 00:00:00 Wondiful A [facility] [id number] [place] 4.2.7.2.686 Professio [phone] [place] [address] [address] 2019-10-30 2019-10-30 Orders Doctor NATALI 1.2.840.114 [id number] 00:00:00 00:00:00 Only Unassigned, JESSICA [id number] [facility] 4.2.7.2.686 [id number] [id number] 2019-10-22 2019-10-22 Telephone [facility] 1.2.840.114 [id number] 00:00:00 00:00:00 Wondiful A [facility] [id number] [place] 4.2.7.2.686 [facility] [phone] [place] [address] [address] 2019-10-20 2019-10-20 [facility]phone [facility] [place] 1.2.840.114 [id number] 00:00:00 00:00:00 Wondiful A [facility] [id number] [place] 4.2.7.2.686 Profess[facility] [phone] [place] [address] [address] 2019-10-15 2019-10-15 Telephone [facility] 1.2.840.114 [id number] 00:00:00 00:00:00 Wondiful A [facility] [id number] [place] 4.2.7.2.686 [facility] [phone] [place] [address] [address] 2019-10-08 2019-10-08 Telephone [facility] 1.2.840.114 [id number] 00:00:00 00:00:00 Wondiful A [facility] [id number] [place] 4.2.7.2.686 Profess[facility] [phone] [place] [address] [address] 2019-08-29 2019-08-29 Office CASPER Vigil 1.2.840.114 [id number] 13:02:13 13:12:13 Visit Roberto AMBULATOR 350.1.13.21 [place] 0.2.7.2.686 [id number] 2019-04-29 2019-04-29 Office Jeff SHIRLEY [id number] 10:53:12 12:18:36 Visit Kt, AMBULATOR 350.1.13.21 Rasheed Leon 0.2.7.2.686 Davila [phone] [id number] Results This patient has no known results.
[2020-10-06] MEDS ORDERED: PIPER/TAZO/NS 2.25gm 2.25 GM/50 ML BAG ONE (12:44)
[2020-10-06 13:34] LABS: Urine Blood NEGATIVE (NEG); Urine Glucose NEGATIVE (NEG); Urine Protein TRACE (NEG); Urine pH 6.5 (5.0-7.0)
[2020-10-06 13:36] LABS: Hematocrit 39.9 % (36.0-45.0); Lymphocytes % 23.9 % (15.3-44.8); MPV 7.8 fL (7.6-11.3); RBC Red Blood Cell Count 4.47 M/uL (3.86-4.86)
[2020-10-06 13:37] LABS: Absolute Lymphocytes (CBC) 2.4 K/uL (0.7-4.9); Basophils % 0.9 % (0-1.3)
[2020-10-06 13:39] LABS: BUN Blood Urea Nitrogen 7 mg/dL (7-18); Bicarbonate 27 mmol/L (21-32); Glucose Level 84 mg/dL (74-106); Sodium Level 139 mmol/L (136-145)
--- NOTE | 2020-10-06 13:56 | EDPHYS ---
Physician Documentation [facility] Name: Shari Estrella Age: 30 yrs Sex: Female : 1990 Arrival Date: 10/06/2020 Time: 11:18 Bed 4 Private MD: ED Physician Eric Celestin HPI: 10/06 12:19 This 30 yrs old Female presents to ER via Wheelchair with complaints of kdr Fever, Vomiting. 12:19 The patient presents with urinary symptoms, dysuria, frequency, urgency, Foul smelling. kdr Onset: The symptoms/episode began/occurred gradually, 3 day(s) ago. Modifying factors: The symptoms are alleviated by nothing, the symptoms are aggravated by nothing. Associated signs and symptoms: Pertinent positives: fever, nausea. Severity of symptoms: At their worst the symptoms were mild, in the emergency department the symptoms are unchanged. The patient has experienced similar episodes in the past, chronically. The patient has not recently seen a physician. Historical: - Allergies: 11:32 Adhesives; ll1 11:32 Bactrim; ll1 11:32 Demerol; ll1 11:32 Latex, Natural Rubber; ll1 11:32 Sulfa (Sulfonamide Antibiotics); ll1 11:32 Vancomycin; ll1 - PMHx: 11:32 Hypertension; Pressure Ulcer to the Coccyx.; Sepsis; spina-bifida; UTI; scoliosis; ll1 - PSHx: 11:32 Shunt Placement; Back Surgery; ll1 - Immunization history:: Flu vaccine is not up to date. - Social history:: Smoking status: Patient denies any tobacco usage or history of. ROS: 12:19 Constitutional: Negative for chills, and weight loss, hsa had fever to 99.8 Eyes: kdr Negative for injury, pain, redness, and discharge, ENT: Negative for injury, pain, and discharge, Neck: Negative for injury, pain, and swelling, Cardiovascular: Negative for chest pain, palpitations, and edema, Respiratory: Negative for shortness of breath, cough, wheezing, and pleuritic chest pain, Abdomen/GI: Negative for abdominal pain, nausea, vomiting, diarrhea, and constipation, Back: Negative for injury and pain, MS/Extremity: Negative for injury and she does ahve the spinabifadia finds with her lower extremities Skin: Negative for injury, rash, and discoloration, Neuro: Negative for headache, weakness, numbness, tingling, and seizure activity. Psych: Negative for depression, anxiety, suicide ideation, homicidal ideation, and hallucinations, Allergy/Immunology: Negative for hives, rash, and allergies, Endocrine: Negative for neck swelling, polydipsia, polyuria, polyphagia, and marked weight changes, Hematologic/Lymphatic: Negative for swollen nodes, abnormal bleeding, and unusual bruising. Exam: 12:19 Constitutional: This is a well developed, well nourished patient who is awake, alert, kdr and in no acute distress. Head/Face: Normocephalic, atraumatic. Eyes: Pupils equal round and reactive to light, extra-ocular motions intact. Lids and lashes normal. Conjunctiva and sclera are non-icteric and not injected. Cornea within normal limits. Periorbital areas with no swelling, redness, or edema. Neck: Trachea midline, no thyromegaly or masses palpated, and no cervical lymphadenopathy. Supple, full range of motion without nuchal rigidity, or vertebral point tenderness. No Meningismus. Chest/axilla: Normal chest wall appearance and motion. Nontender with no deformity. No lesions are appreciated. Cardiovascular: Regular rate and rhythm with a normal S1 and S2. No gallops, murmurs, or rubs. Normal PMI, no JVD. No pulse deficits. Respiratory: Lungs have equal breath sounds bilaterally, clear to auscultation and percussion. No rales, rhonchi or wheezes noted. No increased work of breathing, no retractions or nasal flaring. Abdomen/GI: Soft, non-tender, with normal bowel sounds. No distension or tympany. No guarding or rebound. No evidence of tenderness throughout. 12:19 Back: CVA tenderness, that is mild, is noted bilaterally. Vital Signs: 11:28 BP 138 / 99; Pulse 86; Resp 17; Temp 99.7; Pulse Ox 100% ; Weight 38.56 kg; Pain 9/10; ll1 12:07 BP 130 / 85; Pulse 80; Resp 16; Pulse Ox 100% on R/A; vg1 13:00 BP 138 / 104; Pulse 79; Resp 16; Pulse Ox 100% ; vg1 15:00 BP 138 / 80; Pulse 69; Resp 14; Pulse Ox 100% ; vg1 Procedures: 14:59 Peripheral line: by aseptic technique a peripheral line was placed in the left external jr8 jugular vein, 22 g placed Left EJ with success. Good blood return with patent flow with flushing line . MDM: 12:19 Data reviewed: vital signs, nurses notes, lab test result(s). Counseling: I had a kdr detailed discussion with the patient and/or guardian regarding: the historical points, exam findings, and any diagnostic results supporting the discharge/admit diagnosis, lab results, the need for further work-up and treatment in the hospital. Physician consultation: Nidia Mason MD regarding consult, patient's condition, and will see patient in inpatient room, would like medications started, Zosyn, Wants patient admitted for IV abx. 13:55 Patient medically screened. [facility] 10/06 12:05 Order name: Urine Culture [facility] 10/06 12:18 Order name: CBC with Diff [facility] 10/06 12:18 Order name: Chem 7 [facility] 10/06 12:55 Order name: Urine Dipstick--Ancillary (enter results) [facility] 10/06 12:55 Order name: Urine --Ancillary (enter results) [facility] 10/06 13:34 Order name: Urine --Ancillary [facility] 10/06 13:34 Order name: Urine Dipstick-Ancillary [facility] 10/06 13:37 Order name: CBC with Automated Diff [facility] 10/06 13:39 Order name: Basic Metabolic Panel [facility] 10/06 14:03 Order name: CORONAVIRUS (COVID-19) : Document "Date of Symptom Onset" if Symptomatic. [facility] 10/06 14:41 Order name: CORONAVIRUS [facility] 10/06 15:27 Order name: SARS-COV-2 RT PCR [facility] 10/06 12:05 Order name: Urine Dipstick-Ancillary (obtain specimen); Complete Time: 12:52 kdr Administered Medications: 14:56 Drug: Zosyn 2.25 grams Route: IVPB; Infused Over: 60 mins; Site: left jugular; vg1 16:07 Follow up: IV Status: Completed infusion vg1 15:19 Drug: morphine 4 mg {Note: rass0.} Route: IVP; Site: left jugular; vg1 16:07 Follow up: Response: No adverse reaction; Pain is unchanged, physician notified vg1 15:19 Drug: Zofran (Ondansetron) 4 mg Route: IVP; Site: left jugular; vg1 16:07 Follow up: Response: No adverse reaction vg1 Disposition: 10/07 07:09 Co-signature as Attending Physician, Eric Celestin MD I agree with the assessment and kdr plan of care. Disposition: 10/06/20 13:55 Hospitalization ordered by David Reynolds for Observation. Preliminary diagnosis is Urinary tract infection, site not specified. - Bed requested for Telemetry/MedSurg (observation). - Status is Observation. vg1 - Condition is Fair. - Problem is new. - Symptoms have improved. Signatures: Dispatcher [employer] EDNia Vargas RN RN Eric Celestin MD MD [facility] Ethan Bonilla PA PA jr8 Brina Lu RN RN vg1 Aldo Mcdonald RN RN ll1 Corrections: (The following items were deleted from the chart) 10/06 16:03 13:55 Hospitalization Ordered by David Reynolds DO for Observation. Preliminary dw diagnosis is Urinary tract infection, site not specified. Bed requested for Telemetry/MedSurg (observation). Status is Observation. Condition is Fair. Problem is new. Symptoms have improved. kdr 16:39 16:03 10/06/2020 13:55 Hospitalization Ordered by David Reynolds DO for Observation. vg1 Preliminary diagnosis is Urinary tract infection, site not specified. Bed requested for Telemetry/MedSurg (observation). Status is Observation. Condition is Fair. Problem is new. Symptoms have improved. dw
--- NOTE | 2020-10-06 13:56 | ER ---
Nurse's Notes [facility] Name: Shari Estrella Age: 30 yrs Sex: Female : 1990 Arrival Date: 10/06/2020 Time: 11:18 Bed 4 Private MD: Diagnosis: Urinary tract infection, site not specified Presentation: 10/06 11:28 Chief complaint: Patient states: Low back pain, foul smelling urine, N/V for 2-3 days. ll1 Believes she has another UTI. Admitted last month for the same. Coronavirus screen: Client denies travel out of the [place] in the last 14 days. At this time, the client does not indicate any symptoms associated with coronavirus-19. Ebola Screen: Patient denies travel to an Ebola-affected area in the 21 days before illness onset. Initial Sepsis Screen: Does the patient meet any 2 criteria? No. Patient's initial sepsis screen is negative. Does the patient have a suspected source of infection? Yes: Dysuria/Frequency/Urgency/UTI. Risk Assessment: Do you want to hurt yourself or someone else? Patient reports no desire to harm self or others. Onset of symptoms was October 04, 2020. 11:28 Method Of Arrival: Wheelchair ll1 11:28 Acuity: SAMAN 3 ll1 Historical: - Allergies: 11:32 Adhesives; ll1 11:32 Bactrim; ll1 11:32 Demerol; ll1 11:32 Latex, Natural Rubber; ll1 11:32 Sulfa (Sulfonamide Antibiotics); ll1 11:32 Vancomycin; ll1 - PMHx: 11:32 Hypertension; Pressure Ulcer to the Coccyx.; Sepsis; spina-bifida; UTI; scoliosis; ll1 - PSHx: 11:32 Shunt Placement; Back Surgery; ll1 - Immunization history:: Flu vaccine is not up to date. - Social history:: Smoking status: Patient denies any tobacco usage or history of. Screenin:07 Abuse screen: Denies threats or abuse. Nutritional screening: No deficits noted. vg1 Tuberculosis screening: No symptoms or risk factors identified. Fall Risk No fall in past 12 months (0 pts). No secondary diagnosis (0 pts). No IV (0 pts). Ambulatory Aid- None/Bed Rest/Nurse Assist (0 pts). Gait- Normal/Bed Rest/Wheelchair (0 pts) Mental Status- Oriented to own ability (0 pts). Total Aburto Fall Scale indicates No Risk (0-24 pts). Assessment: 12:05 General: Appears in no apparent distress. comfortable, Behavior is calm, cooperative. vg1 Pain: Complains of pain in back Pain currently is 9 out of 10 on a pain scale. Neuro: Level of Consciousness is awake, alert, obeys commands, Oriented to person, place, time, situation. Cardiovascular: Patient's skin is warm and dry. Respiratory: Airway is patent Respiratory effort is even, unlabored. GI: Abdomen is flat. : Reports foul odor of urine. EENT: No signs and/or symptoms were reported regarding the EENT system. Derm: Skin is intact, is healthy with good turgor. Musculoskeletal: Circulation, motion, and sensation intact. 15:00 Reassessment: Patient appears in no apparent distress at this time. No changes from vg1 previously documented assessment. Patient and/or family updated on plan of care and expected duration. Pain level reassessed. Patient is alert, oriented x 3, equal unlabored respirations, skin warm/dry/pink. 15:11 Reassessment: Received VO from DR Celestin to administer 4 mg of Morphine IVP x1 and 4 vg1 mg of Zofran IVP x1. Vital Signs: 11:28 BP 138 / 99; Pulse 86; Resp 17; Temp 99.7; Pulse Ox 100% ; Weight 38.56 kg; Pain 9/10; ll1 12:07 BP 130 / 85; Pulse 80; Resp 16; Pulse Ox 100% on R/A; vg1 13:00 BP 138 / 104; Pulse 79; Resp 16; Pulse Ox 100% ; vg1 15:00 BP 138 / 80; Pulse 69; Resp 14; Pulse Ox 100% ; vg1 ED Course: 11:18 Patient arrived in ED. rg4 11:29 Triage completed. ll1 11:29 Arm band placed on. ll1 12:00 Brina Lu, RN is Primary Nurse. vg1 12:03 Eric Celestin MD is Attending Physician. kdr 12:07 Patient has correct armband on for positive identification. Bed in low position. Call vg1 light in reach. Side rails up X2. 12:54 Urine collected: straight cath specimen, cloudy, sediment noted. Speci-cath kit vg1 inserted, using sterile technique, 14 Fr., specimen obtained. [facility] instructor. 13:07 Missed attempt(s): 22 gauge in right antecubital area. vg1 13:18 Urine --Ancillary (enter results) Sent. sv 13:18 Urine Dipstick--Ancillary (enter results) Sent. sv 13:35 Missed attempt(s): 24 gauge in right hand. Bleeding controlled, band aid applied, sv catheter tip intact. 13:41 Missed attempt(s): 24 gauge in right wrist. Bleeding controlled, band aid applied, sv catheter tip intact. 13:47 Chem 7 Sent. mh5 13:47 CBC with Diff Sent. 5 13:47 Urine Culture Sent. 5 13:53 David Reynolds DO is Hospitalizing Provider. kdr 14:55 Inserted saline lock: 22 gauge in left EJ, using aseptic technique. ,using aseptic ss technique. Insertion by DEJAN Walker. 16:11 Patient admitted, IV remains in place. vg1 16:14 No provider procedures requiring assistance completed. vg1 Administered Medications: 14:56 Drug: Zosyn 2.25 grams Route: IVPB; Infused Over: 60 mins; Site: left jugular; vg1 16:07 Follow up: IV Status: Completed infusion vg1 15:19 Drug: morphine 4 mg {Note: rass0.} Route: IVP; Site: left jugular; vg1 16:07 Follow up: Response: No adverse reaction; Pain is unchanged, physician notified vg1 15:19 Drug: Zofran (Ondansetron) 4 mg Route: IVP; Site: left jugular; vg1 16:07 Follow up: Response: No adverse reaction vg1 Outcome: 13:55 Decision to Hospitalize by Provider. kdr 14:55 Instructed on the need for admit. ss 16:14 Admitted to Tele accompanied by tech, via stretcher, room 224, with chart, Report vg1 called to CHATA Rice 16:14 Condition: stable 16:14 Instructed on the need for admit. 16:39 Patient left the ED. vg1 Signatures: Mckenzie Miner RN RN sv Rittger, Kevin, MD MD kdr Smirch, Shelby, RN RN ss Garcia, Rubi rg4 Martinez, Maria 5 Aly, Brina, RN RN vg1 Aldo Mcdonald, RN RN ll1
[2020-10-06] MEDS ORDERED: ONDANSETRON 4 MG/2 ML VIAL ONE (15:22)
[2020-10-06] MEDS ORDERED: MORPHINE 4 MG/ML SYR ONE (15:22)
--- NOTE | 2020-10-06 16:01 | P.HP ---
Certification for Inpatient Patient admitted to: Inpatient With expected LOS: >2 Midnights Patient will require the following post-hospital care: None Practitioner: I am a practitioner with admitting privileges, knowledge of patient current condition, hospital course, and medical plan of care. Services: Services provided to patient in accordance with Admission requirements found in Title 42 Section 412.3 of the Code of Federal Regulations Patient History Date of Service: 10/06/20 Primary Care Provider: Dr. Kohler Reason for admission: Recurrent UTI Allergies adhesive tape Allergy (Verified 07/29/19 01:10) Rash Latex, Natural Rubber Allergy (Verified 07/29/19 01:10) Rash Sulfa (Sulfonamide Antibiotics) Allergy (Verified 07/29/19 01:10) Hives/Rash sulfamethoxazole [From Bactrim] Allergy (Verified 07/29/19 01:10) Hives trimethoprim [From Bactrim] Allergy (Verified 07/29/19 01:10) Hives vancomycin Allergy (Verified 07/29/19 01:10) Hives/Rash Adhesives Allergy (Uncoded 07/08/17 16:36) Unknown Home Medications: Atenolol [Tenormin] 100 mg PO DAILY 02/17/20 Diphenhydramine [Benadryl*] 50 mg PO BEDTIME PRN PRN 02/17/20 Oxycodone HCl/Acetaminophen [Oxycodone-Acetaminophen 10-325] 1 each PO Q6HP PRN 02/17/20 Hans [Hans*] 1 pkt PO BID #60 powd.pack 07/11/20 Silver Nit [Silver Nitrate Applicators*] 1 appl TOP SEECOM #1 packet 09/07/20 - Past Medical/Surgical History Diabetic: No -: Stage 4 decubitus ulcer -: Spina Bifida -: MRSA -: scoliosis -: HTN -: GERD -: Osteomyelitis -: Multiple back surgeries -: Right great toe amputated -: bowel surgery cecostomy -: Suprapubic stoma -: [employer] shunt - Family History Mother -: Hypertension, Diabetes, Other (see notes) Notes: Lupus Father -: Hypertension, Diabetes Notes: Hyperlipidemia - Social History Alcohol use: No CD- Drugs: No Caffeine use: Yes Assessment and Plan - Advance Directives Does patient have a Living Will: No Does patient have a Durable POA for Healthcare: No
--- NOTE | 2020-10-06 16:05 | P.HP ---
Certification for Inpatient Patient admitted to: Inpatient With expected LOS: >2 Midnights Patient will require the following post-hospital care: None Practitioner: I am a practitioner with admitting privileges, knowledge of patient current condition, hospital course, and medical plan of care. Services: Services provided to patient in accordance with Admission requirements found in Title 42 Section 412.3 of the Code of Federal Regulations Patient History Date of Service: 10/06/20 Primary Care Provider: Dr. Kohler Reason for admission: Recurrent UTI History of Present Illness: 30 yo CF with history of spina bifida, chronic ulcer to the buttocks, hypertension, chronic pain presented to the emergency room with increased d ysuria. Patient was sent by PCP to evaluate for recurrent UTI. Patient was recently treated and hospitalized the end of August for UTI-ESBL. The patient required central line placement and IV InVanz for 10 days. Patient was treated. Central line was removed. Over the past 2 days patient has reported increased fever, dysuria. Some nausea noted. In the ER patient was evaluated. Patient appeared dehydrated. Patient was a difficult lab draw. Still waiting on lab. Patient appears ill. Patient admitted for further evaluation and treatment. Suspect recurrent UTI-ESBL. Allergies adhesive tape Allergy (Verified 07/29/19 01:10) Rash Latex, Natural Rubber Allergy (Verified 07/29/19 01:10) Rash Sulfa (Sulfonamide Antibiotics) Allergy (Verified 07/29/19 01:10) Hives/Rash sulfamethoxazole [From Bactrim] Allergy (Verified 07/29/19 01:10) Hives trimethoprim [From Bactrim] Allergy (Verified 07/29/19 01:10) Hives vancomycin Allergy (Verified 07/29/19 01:10) Hives/Rash Adhesives Allergy (Uncoded 07/08/17 16:36) Unknown Home medications list reviewed: Yes Home Medications: Atenolol [Tenormin] 100 mg PO DAILY 02/17/20 Diphenhydramine [Benadryl*] 50 mg PO BEDTIME PRN PRN 02/17/20 Oxycodone HCl/Acetaminophen [Oxycodone-Acetaminophen 10-325] 1 each PO Q6HP PRN 02/17/20 Hans [Hans*] 1 pkt PO BID #60 powd.pack 07/11/20 Silver Nit [Silver Nitrate Applicators*] 1 appl TOP SEECOM #1 packet 09/07/20 - Past Medical/Surgical History Diabetic: No -: Stage 4 decubitus ulcer -: Spina Bifida -: MRSA -: scoliosis -: HTN -: GERD -: Osteomyelitis -: Recurrent UTI -: Multiple back surgeries -: Right great toe amputated -: bowel surgery cecostomy -: Suprapubic stoma -: 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 Psychosocial/ Personal History: Patient lives at home - Family History Mother -: Hypertension, Diabetes, Other (see notes) Notes: Lupus Father -: Hypertension, Diabetes Notes: Hyperlipidemia - Social History Smoking Status: Never smoker Alcohol use: No CD- Drugs: No Caffeine use: Yes Place of Residence: Home Review of Systems General: Fever, Weakness, As per HPI Eyes: Unremarkable ENT: Unremarkable Respiratory: Unremarkable Cardiovascular: Unremarkable Gastrointestinal: Nausea, As per HPI Genitourinary: Dysuria, As per HPI Musculoskeletal: As per HPI Integumentary: Unremarkable Neurological: As per HPI Lymphatics: Unremarkable Physical Examination - Physical Exam General: Alert, In no apparent distress, Oriented x3, Cooperative HEENT: Atraumatic, Other (Dry mucous membranes noted) Neck: Supple Respiratory: Clear to auscultation bilaterally, Normal air movement Cardiovascular: Normal pulses, Regular rate/rhythm Gastrointestinal: Normal bowel sounds, No masses, No rebound, No guarding Integumentary: Other (Patient has chronic ulcer to the buttocks region) Neurological: Normal speech, Other (Patient with spina bifida.) Assessment and Plan - Plan Impression: Dysuria, fever suspect recurrent UTI-ESBL Dehydration History of spina bifida with chronic pressure ulcer to the buttocks Hypertension Chronic pain Plan: Dysuria, fever suspect recurrent UTI-ESBL: Patient will be admitted for further evaluation and treatment. Due to poor access case discussed with surgery. Surgery will plan for Port-A-Cath placement for continued IV antibiotic therapy and lab draws. Will start IV meropenem. Continue IV fluids. Will keep the patient NPO after midnight for Port-A-Cath placement. Await blood and urine culture results. Will provide medication for pain. DVT prophylaxis in place. Dehydration: Continue IV fluids. History of spina bifida with chronic pressure ulcer to the buttocks: Overall stable. Continue wound care. Hypertension: Restart home medication of atenolol. Chronic pain: Restart home medication. Will monitor closely. Discharge Plan: Home Plan to discharge in: Greater than 2 days - Advance Directives Does patient have a Living Will: No Does patient have a Durable POA for Healthcare: No - Code Status/Comfort Care Code Status Assessed: Yes (Patient is full code) Time Spent Managing Pts Care (In Minutes): 55
[2020-10-06] MEDS ORDERED: Meropenem 1000 MG/VIAL IV SCH (16:44)
[2020-10-06] MEDS ORDERED: ONDANSETRON 4 MG/2 ML VIAL IV PRN (16:44)
[2020-10-06] MEDS ORDERED: ACETAMINOPHEN 500 MG TAB PO PRN (16:44)
[2020-10-06] MEDS: NA CHLORIDE 0.9% 1,000 ML IV SCH (16:44)
[2020-10-06] MEDS: JUVEN PACKET PO SCH (21:00)
[2020-10-06] MEDS: Meropenem 1 GM/100 ML BAG IV SCH (22:15)
[2020-10-06] MEDS: ZOLPIDEM TARTRATE 5 MG TABLET PO PRN (22:30)
[2020-10-06] MEDS: OXYCODONE HCL 5 MG TAB PO PRN (23:41)
[2020-10-07] MEDS: NA CHLORIDE 0.9% 1,000 ML IV SCH ×2 (05:55→18:32)
[2020-10-07] MEDS: atenoloL 50 MG TAB PO SCH (05:55)
[2020-10-07] MEDS: OXYCODONE HCL 5 MG TAB PO PRN ×3 (05:55→20:57)
[2020-10-07 06:51] LABS: Absolute Lymphocytes (CBC) 2.4 K/uL (0.7-4.9); Basophils % 1.1 % (0-1.3); Hematocrit 35.6 % (36.0-45.0); Lymphocytes % 31.6 % (15.3-44.8); MPV 8.3 fL (7.6-11.3); RBC Red Blood Cell Count 3.98 M/uL (3.86-4.86)
[2020-10-07 07:18] LABS: BUN Blood Urea Nitrogen 8 mg/dL (7-18); Bicarbonate 21 mmol/L (21-32); Glucose Level 96 mg/dL (74-106); Sodium Level 141 mmol/L (136-145)
[2020-10-07 07:20] LABS: Magnesium 1.9 mg/dL (1.8-2.4); Potassium 4.5 mmol/L (3.5-5.1)
--- NOTE | 2020-10-07 08:17 | P.PN ---
Subjective Date of Service: 10/07/20 Primary Care Provider: Dr. Kohler Chief Complaint: Recurrent UTI Subjective: Improving, Doing well Physical Examination - Vital Signs Temperature: 98.0 F Blood Pressure: 118/73 Pulse: 79 Respirations: 18 Pulse Ox (%): 96 - Studies Laboratory Data (last 24 hrs) 10/06/20 13:15: Sodium 139, Potassium 4.0, BUN 7, Creatinine 0.37 L, Glucose 84 10/06/20 13:15: WBC 10.20, Hgb 12.9, Hct 39.9, Plt Count 425 H Assessment & Plan Discharge Plan: Home Plan to discharge in: 48 Hours Physician Review Additional Text: Physical exam: Patient alert, cooperative. Heart: Regular rate rhythm Lungs: Clear to auscultation Abdomen: Soft nontender nondistended Extremities: Patient with spina bifida. Surgical scars noted to the spine. Chronic wound to the left buttocks region. Impression: Dysuria, fever suspect recurrent UTI-ESBL Dehydration History of spina bifida with chronic pressure ulcer to the buttocks Hypertension Chronic pain Plan: Dysuria, fever suspect recurrent UTI-ESBL: Continue with IV meropenem. Suspect recurrent UTI-ESBL. Spoke with surgery. Surgery plans for Port-A-Cath placement for continued long-term IV antibiotic therapy and lab draws. Patient with poor access. Will consult infectious disease as the patient is seen by Dr. Ibarra. Await recommendations on IV antibiotic therapy. Continue DVT prophylaxis. Continue IV fluids. Anticipate possible discharge as early as tomorrow with IV antibiotic therapy at at discharge at home. Will discuss with social media community manager. Dehydration: Continue IV fluids. History of spina bifida with chronic pressure ulcer to the buttocks: Overall stable. Continue wound care. Infectious disease consulted to further address and treat. Patient is seen by infectious disease. Hypertension: Continue atenolol. Chronic pain: Continue medication. Will monitor closely. Time Spent Managing Pts Care (In Minutes): 55
[2020-10-07] MEDS: JUVEN PACKET PO SCH ×2 (09:00→20:55)
[2020-10-07] MEDS: Meropenem 1 GM/100 ML BAG IV SCH ×2 (09:00→20:58)
[2020-10-07] MEDS: ENOXAPARIN 40 MG/0.4 ML SQ SCH (09:00)
[2020-10-07] MEDS ORDERED: CEFAZOLIN/SWI 1gm 1 GM/10 ML SYR IVP SCH (09:00)
[2020-10-07] MEDS ORDERED: NS 0.9% VIAL 20 ML ONE (09:26)
[2020-10-07] MEDS ORDERED: HEPARIN 5000 UNIT/ML 1 ML VIAL ONE (09:26)
[2020-10-07] MEDS ORDERED: LIDOCAINE 1% MPF 30 ML VIAL ONE (09:26)
[2020-10-07] MEDS ORDERED: DIAZEPAM 5 MG TABLET ONE (09:34)
--- NOTE | 2020-10-07 09:58 | PREOPCON ---
Date of Consultation: 10/06/2020 Reason For Consultation: Poor IV access, needs long-term IV access, and history of recurrent UTI ESB L. History Of Present Illness: The patient is a 30-year-old female with spina bifida, hypertension, chr onic pain, came to the emergency room with dysuria. She does have a history of recurrent UTI with mu ltiple admissions, recently treated in August. She has had increased fever and dysuria and nausea n oted recently. She was admitted for UTI and needs IV antibiotics treatment. She has a very difficul t to get a PICC line or IV peripherally and she has EJ IV currently. I discussed the case with Dr. Te batres as she has frequent admissions for recurrent UTI. I would recommend that we do a Port-A-Cath s avril she would have better access. She does have a FINISH CARPENTER shunt on the right side, so we will try to do on the left. No sore throat, runny nose, cough, headaches, or dizziness. No chest pain. Review of Systems: Otherwise unremarkable. Past Medical History: Spina bifida, history of chronic ulcers to the buttocks, hypertension, and chr onic pain. Past Surgical History: Multiple back surgeries, right great toe was amputated, bowel surgery, trache ostomy, suprapubic stoma, FINISH CARPENTER shunt. Allergies: MULTIPLE INCLUDE LATEX, SULFA, VANCO. Social History: The patient does not smoke. Does not drink alcohol. Family History: Noncontributory. Physical Examination: Vital Signs: Stable. She is afebrile. General: She is awake, alert, and oriented x3. Head and Neck: No masses. Chest: Clear. Heart: S1, S2. Abdomen: Soft. Extremities: Paralysis present and upper extremity full range of motion. Neuro: Nonfocal. Laboratory Data: Reviewed. Platelets are 326. H and H are 11.4 and 35.6. Chemistry reviewed, esse ntially within normal limits. Urine shows positive nitrates and leukocyte esterase. Micro is pendin g. Assessment: Recurrent urinary tract infection, poor IV access, and the patient with multiple medical problems. Recommendations: Place Port-A-Cath. The patient understands the risks, benefits, and alternatives a nd agrees to procedure. /MODL Voice ID: [id number] Report ID: [id number]
[2020-10-07] MEDS ORDERED: FENTANYL CITR 100 MCG/2 ML ONE (10:06)
[2020-10-07] MEDS ORDERED: propofoL 200 MG/20 ML VIAL IV ONE (10:06)
[2020-10-07] MEDS ORDERED: LIDOCAINE 1% MPF 5 ML VIAL ONE (10:06)
[2020-10-07] MEDS ORDERED: MIDAZOLAM HCL 2 MG/2 ML INJ ONE ×2 (10:06→11:54)
[2020-10-07 10:14] VITALS: BMI 46.0
[2020-10-07] MEDS ORDERED: EPHEDRINE SULF 50 MG/ML VIAL ONE (10:59)
[2020-10-07] MEDS ORDERED: NS 0.9% VIAL 10 ML ONE (10:59)
[2020-10-07] MEDS ORDERED: KETOROLAC 30 MG/ML INJ ONE (11:13)
[2020-10-07] MEDS ORDERED: dexAMETHasone 10 MG/ML VIAL ONE (11:13)
[2020-10-07] MEDS ORDERED: ONDANSETRON 4 MG/2 ML VIAL ONE (11:20)
--- NOTE | 2020-10-07 11:25 | P.OP ---
Siene Maker: Sharon REAL Preoperative diagnosis: Poor IV Access, Recurrent UTI Postoperative diagnosis: same Primary procedure: Left Chest Portacath via Subclavian Vein Secondary procedure: Fluoroscopy Anesthesia: General Estimated blood loss: min Specimen: none Findings: Nl Anatomy Complications: None Transferred to: Recovery Room Condition: Good
[2020-10-07] MEDS: FENTANYL CITR 100 MCG/2 ML ONE ×2 (11:30→11:52)
--- NOTE | 2020-10-07 11:43 | OP ---
Date of Procedure: 10/07/2020 Surgeon: Todd Elise MD [employer] Manager: ADDIE Neves. Preoperative Diagnoses: Poor intravenous access, recurrent urinary tract infection requiring intrave nous antibiotics. Postoperative Diagnoses: Poor intravenous access, recurrent urinary tract infection requiring intrav enous antibiotics. Procedures Performed: Placement of left chest Port-A-Cath and interpretation of intraoperative fluor oscopy. Estimated Blood Loss: Minimal. Specimen: None. Findings: Normal anatomy. Anesthesia: General. Complications: None. Disposition: The patient tolerated the procedure in stable condition and taken to Recovery in good g eneral condition. Operative Note: The patient was brought to the OR and placed in supine position. General anesthesia begun. The patient was prepped and draped in the usual sterile fashion. Marcaine 0.5% was infiltra carlos locally. The patient had absolutely no neck to access the IJ vein, therefore 18-gauge needle was used to access the left subclavian vein. Guidewire was passed. Position was confirmed with fluoros copy. A counterincision was made and pocket was created. Tunneling device was used to tunnel the ca theter between the 2 wounds. Seldinger technique was used and tip of the catheter placed in the atri al, SVC junction under fluoroscopy and cut to appropriate size, attached to the Port-A-Cath device. Port-A-Cath device was attached to subcutaneous tissue with 3-0 Vicryl and then 3-0 chromic was used to approximate subcutaneous tissue and close skin. The port was flushed with heparin and packed with heparin with good blood flow. Sterile dressing was applied. The patient was awakened and taken to Recovery in good general condition. Chest x-ray has been ordered. /MODL Voice ID: [id number] Report ID: [id number]
--- NOTE | 2020-10-07 12:17 | RAD REPORT ---
EXAM DESCRIPTION: RAD - Fluoroscopy <1 Hour - 10/07/2020 12:11 pm FINDINGS: There were 8 portable C-arm views submitted from a fluoroscopic assisted placement vascula r access catheter. No suspicious or unexpected finding. Fluoro time was 1.7 minutes. Cumulative dose was 41.0 mGy.
--- NOTE | 2020-10-07 12:19 | RAD REPORT ---
EXAM DESCRIPTION: RAD - Chest Single View - 10/07/2020 12:06 pm CLINICAL HISTORY: s/p port a cath placement COMPARISON: Fluoroscopic procedure images same date, portable chest September 07, 2020 TECHNIQUE: AP portable chest image was obtained 10/07/2020 12:06 pm . FINDINGS: Left subclavian Port-A-Cath is in place. Tip is at the SVC atrial junction. No pneumothora x is present. Heart size is normal. cardiomediastinal silhouette distorted by the severe scoliotic de formity. Shunt tubing is a present overlying the right-side of the neck, chest and abdomen. IMPRESSION: Left subclavian Port-A-Cath in place. Tip is at the SVC atrial junction. No pneumothorax.
[2020-10-07] MEDS: HYDROCODONE/APAP 5/325 MG TAB ONE ×2 (12:28→12:30)
--- NOTE | 2020-10-07 13:51 | P.CNS ---
Date of Consult: 10/07/20 Reason for Consult: recurrent UTI Primary Care Provider: Dr. Kohler Chief Complaint: Recurrent UTI History of Present Illness: The patient did is a 30-year-old female with past medical history of spina bifida, chronic ulcer to buttocks, hypertension, chronic pain, history of recurrent UTIs who presented to the emergency room due to chest area. Patient was recently hospitalized at [facility] in September 03 due to a UTI-cu ltures grew ESBL E coli. Patient was started on IV meropenem. The urine cultures taken on this visit grew gram-negative rods, pending species identification. High suspicion for ESBL E coli infection, such patient has been started on meropenem. The patient has poor IV access and a left chest Port-A-Cath was placed this morning. Patient is afebrile with no leukocytosis. She denies nausea, vomiting, diarrhea, chest pain, shortness of breath. She dose states that she is having some bilateral kidney pain. 10 point ROS performed pertinent positives and negatives listed above. Plan of care discussed with Dr. kimble. Thank you for consultation. Allergies adhesive tape Allergy (Verified 07/29/19 01:10) Rash Latex, Natural Rubber Allergy (Verified 07/29/19 01:10) Rash Sulfa (Sulfonamide Antibiotics) Allergy (Verified 07/29/19 01:10) Hives/Rash sulfamethoxazole [From Bactrim] Allergy (Verified 07/29/19 01:10) Hives trimethoprim [From Bactrim] Allergy (Verified 07/29/19 01:10) Hives vancomycin Allergy (Verified 07/29/19 01:10) Hives/Rash Adhesives Allergy (Uncoded 07/08/17 16:36) Unknown Home Medications: Atenolol [Tenormin] 100 mg PO DAILY 02/17/20 Diphenhydramine [Benadryl*] 50 mg PO BEDTIME PRN PRN 02/17/20 Oxycodone HCl/Acetaminophen [Oxycodone-Acetaminophen 10-325] 1 each PO Q6HP PRN 02/17/20 Silver Nit [Silver Nitrate Applicators*] 1 appl TOP SEECOM #1 packet 09/07/20 - Past Medical/Surgical History Diabetic: No -: Stage 4 decubitus ulcer -: Spina Bifida -: MRSA -: scoliosis -: HTN -: GERD -: Osteomyelitis -: Recurrent UTI -: Multiple back surgeries -: Right great toe amputated -: bowel surgery cecostomy -: Suprapubic stoma -: 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 Psychosocial/ Personal History: Patient lives at home - Family History Mother Medical History: Hypertension, Diabetes, Other (see notes) Notes: Lupus Father Medical History: Hypertension, Diabetes Notes: Hyperlipidemia - Social History Smoking Status: Never smoker Alcohol use: No CD- Drugs: No Caffeine use: Yes Place of Residence: Home Review of Systems 10-point ROS is otherwise unremarkable Physical Examination Temp Pulse Resp BP Pulse Ox 97.0 F 111 H 16 107/55 L 99 10/07/20 13:00 10/07/20 13:00 10/07/20 13:00 10/07/20 13:00 10/07/20 13:00 General: In no apparent distress HEENT: Atraumatic, Normocephalic Neck: Supple, 2+ carotid pulse no bruit, JVD not distended Respiratory: Clear to auscultation bilaterally Cardiovascular: No edema, Regular rate/rhythm Capillary refill: <2 Seconds Gastrointestinal: Normal bowel sounds, Soft and benign Musculoskeletal: No clubbing, No swelling Integumentary: Other (Chronic decubitus wound to buttocks) Laboratory Data (last 24 hrs) 10/06/20 13:15: Sodium 139, Potassium 4.0, BUN 7, Creatinine 0.37 L, Glucose 84 10/06/20 13:15: WBC 10.20, Hgb 12.9, Hct 39.9, Plt Count 425 H 10/06/20 12:50 Clean Catch Urine [place] Count - Preliminary >100,000 CFU/ML. 10/06/20 12:50 Clean Catch Urine - Preliminary Microbiology 10/06/20 12:50 Clean Catch Urine [place] Count - Preliminary >100,000 CFU/ML. 10/06/20 12:50 Clean Catch Urine - Preliminary Conclusions/Impression: Assessment: -UTI -chronic buttocks decubitus ulcer -spina bifida plan: -UA taken on this visit grew gram-negative rods, still waiting species identification. High likelihood of ESBL E coli as patient was recently hospitalized on 09/03 for ESBL E coli. Continue meropenem for 5-7 days. -chronic buttocks decubitus ulcer: Stable at this time. Continue wound treatment -medical management per primary team -continue monitor CBC and BMP -continue to monitor for signs of infection Plan of care discussed with Dr. Ibarra. Thank you for consultation
[2020-10-07] MEDS: ZOLPIDEM TARTRATE 5 MG TABLET PO PRN (20:58)
[2020-10-08] MEDS: OXYCODONE HCL 5 MG TAB PO PRN ×2 (05:36→11:32)
[2020-10-08] MEDS: atenoloL 50 MG TAB PO SCH (05:37)
[2020-10-08 07:22] LABS: BUN Blood Urea Nitrogen 8 mg/dL (7-18); Bicarbonate 23 mmol/L (21-32); Glucose Level 104 mg/dL (74-106); Potassium 3.9 mmol/L (3.5-5.1); Sodium Level 142 mmol/L (136-145)
[2020-10-08 08:01] LABS: Basophils % 0.7 % (0-1.3); Hematocrit 33.3 % (36.0-45.0); Lymphocytes % 31.3 % (15.3-44.8); MPV 8.3 fL (7.6-11.3); RBC Red Blood Cell Count 3.78 M/uL (3.86-4.86)
[2020-10-08 08:42] VITALS: TEMP 97.8
[2020-10-08] MEDS: Meropenem 1 GM/100 ML BAG IV SCH (09:00)
[2020-10-08] MEDS: JUVEN PACKET PO SCH (09:00)
[2020-10-08 09:14] VITALS: O2SAT 99
[2020-10-08] MEDS: NA CHLORIDE 0.9% 1,000 ML IV SCH (09:15)
[2020-10-08] MEDS: ENOXAPARIN 40 MG/0.4 ML SQ SCH (09:15)
--- NOTE | 2020-10-08 09:57 | P.PN ---
Subjective Date of Service: 10/08/20 Primary Care Provider: Dr. Kohler Chief Complaint: Recurrent UTI Subjective: No new changes, Doing well Still awaiting urine culture results. Review of Systems 10-point ROS is otherwise unremarkable Physical Examination - Vital Signs Temperature: 97.8 F Blood Pressure: 131/81 Pulse: 94 Respirations: 20 Pulse Ox (%): 99 - Physical Exam Other Physical/Emotional Findings: General: In no apparent distress. HEENT: Atraumatic, Normocephalic. Neck: Supple, 2+ carotid pulse no bruit, JVD not distended. Respiratory: Clear to auscultation bilaterally. Cardiovascular: No edema, Regular rate/rhythm. Capillary refill: <2 Seconds. Gastrointestinal: Normal bowel sounds, Soft and benign. Musculoskeletal: No clubbing, No swelling. Integumentary: Other (Chronic decubitus wound to buttocks-healing. No active drainage/bleeding. Periwound tissue is clean and dry with no clinical signs of infection.) Assessment And Plan - Plan Antibiotics: meropenum start: 10/06 stop: 10/13 indication: suspected ESBL E coli. UTI Assessment: -UTI -chronic buttocks decubitus ulcer -spina bifida plan: -UA taken on this visit grew gram-negative rods, still waiting species identification. High likelihood of ESBL E coli as patient was recently hospitalized on 09/03 for ESBL E coli. Continue meropenem for 5-7 days. -chronic buttocks decubitus ulcer: Stable at this time. Continue wound treatment--wet to dry. -medical management per primary team -continue monitor CBC and BMP -continue to monitor for signs of infection Plan of care discussed with Dr. Ibarra. Thank you for consultation
--- NOTE | 2020-10-08 11:26 | P.DS ---
Admission Date: 10/06/20 Discharge Date: 10/08/20 Primary Care Provider: Dr. Kohler Disposition: DC HOME/HOME HEALTH CARE Discharge Condition: GOOD Reason for Admission: Recurrent UTI Consultations: Surgery-Dr. Elise Infectious Disease-Dr. Ibarra Procedures: COVID: Negative Surgery: Date of Procedure: 10/07/2020 Surgeon: Todd Elise MD Meterman: ADDIE Neves. Preoperative Diagnoses: Poor intravenous access, recurrent urinary tract infection requiring intravenous antibiotics. Postoperative Diagnoses: Poor intravenous access, recurrent urinary tract infection requiring intravenous antibiotics. Procedures Performed: Placement of left chest Port-A-Cath and interpretation of intraoperative fluoroscopy. Estimated Blood Loss: Minimal. Specimen: None. Findings: Normal anatomy. Anesthesia: General. Complications: None. Follow up CXR: TECHNIQUE: AP portable chest image was obtained 10/07/2020 12:06 pm . FINDINGS: Left subclavian Port-A-Cath is in place. Tip is at the SVC atrial junction. No pneumothorax is present. Heart size is normal. cardiomediastinal silhouette distorted by the severe scoliotic deformity. Shunt tubing is a present overlying the right-side of the neck, chest and abdomen. IMPRESSION: Left subclavian Port-A-Cath in place. Tip is at the SVC atrial junction. No pneumothorax. Medical problem list: Dysuria, fever suspect recurrent UTI-ESBL Dehydration History of spina bifida with chronic pressure ulcer to the buttocks Hypertension Chronic pain Brief History of Present Illness: 30 yo CF with history of spina bifida, chronic ulcer to the buttocks, hypertension, chronic pain presented to the emergency room with increased dysuria. Patient was sent by PCP to evaluate for recurrent UTI. Patient was recently treated and hospitalized the end of August for UTI-ESBL. The patient required central line placement and IV InVanz for 10 days. Patient was treated. Central line was removed. Over the past 2 days patient has reported increased fever, dysuria. Some nausea noted. In the ER patient was evaluated. Patient appeared dehydrated. Patient was a difficult lab draw. Still waiting on lab. Patient appears ill. Patient admitted for further evaluation and treatment. Suspect recurrent UTI-ESBL. Hospital Course: Patient presented with dysuria and fever. Patient found to have UTI. Patient recently treated for UTI-ESBL. ESBL suspected. Infectious Disease was consulted. Patient was started on IV meropenem. She has responded to therapy. Patient required long-term IV access. Patient has been tried on PICC line without success. Therefore surgery was consulted for Port-A-Cath placement. This will allow her to continue IV antibiotic therapy and lab draws in the future. Port-A-Cath placed. At discharge patient will continue with IV meropenem 1 g twice daily for 2 weeks. IV antibiotic therapy has been arranged as an outpatient. Home health will be consulted check BMP weekly. Home health will also continue with Port-A-Cath care in maintenance. This was discussed in detail with her PCP Dr. Kohler who agrees with plan of care in follow up. PCP will follow up on final cultures. Recommend to recheck urine culture in 2 weeks to monitor resolution. Recommend follow up with PCP in 1 week to follow up this hospitalization and continue her care. Patient with history of spina bifida and chronic pressure ulcer to the buttocks. Continue with current wound care and Infectious Disease recommendations. Patient with hypertension. At discharge she will continue with atenolol. Patient with chronic pain. At discharge she will continue with her chronic pain medication and follow up with pain management to further monitor and adjust medication. Vital Signs/Physical Exam: Temp Pulse Resp BP Pulse Ox 97.8 F 94 H 20 131/81 99 10/08/20 10:00 10/08/20 10:00 10/08/20 10:00 10/08/20 10:00 10/08/20 10:00 General: Alert, In no apparent distress, Oriented x3, Cooperative HEENT: Atraumatic Neck: Supple Respiratory: Clear to auscultation bilaterally, Normal air movement Cardiovascular: Normal pulses, Regular rate/rhythm Gastrointestinal: Normal bowel sounds Neurological: Other (Patient with spina bifida. Chronic wound to the left buttocks) Laboratory Data at Discharge: WBC 9.60 K/uL (4.3-10.9) D 10/08/20 07:00 Hgb 10.8 g/dL (12.0-15.0) L 10/08/20 07:00 Hct 33.3 % (36.0-45.0) L 10/08/20 07:00 Plt Count 324 K/uL (152-406) 10/08/20 07:00 Sodium 142 mmol/L (136-145) 10/08/20 06:34 Potassium 3.9 mmol/L (3.5-5.1) 10/08/20 06:34 BUN 8 mg/dL (7-18) 10/08/20 06:34 Creatinine 0.34 mg/dL (0.55-1.3) L 10/08/20 06:34 Glucose 104 mg/dL (74-106) 10/08/20 06:34 Magnesium 2.0 mg/dL (1.8-2.4) 10/08/20 06:34 Home Medications: Atenolol [Tenormin] 100 mg PO DAILY 02/17/20 Diphenhydramine [Benadryl*] 50 mg PO BEDTIME PRN PRN 02/17/20 Oxycodone HCl/Acetaminophen [Oxycodone-Acetaminophen 10-325] 1 each PO Q6HP PRN 02/17/20 Silver Nit [Silver Nitrate Applicators*] 1 appl TOP SEECOM #1 packet 09/07/20 Physician Discharge Instructions: Patient presented with dysuria and fever. Patient found to have UTI. Patient recently treated for UTI-ESBL. ESBL suspected. Infectious Disease was consulted. Patient was started on IV meropenem. She has responded to therapy. Patient required long-term IV access. Patient has been tried on PICC line without success. Therefore surgery was consulted for Port-A-Cath placement. This will allow her to continue IV antibiotic therapy and lab draws in the future. Port-A-Cath placed. At discharge patient will continue with IV meropenem 1 g twice daily for 2 weeks. IV antibiotic therapy has been arranged as an outpatient. Home health will be consulted check BMP weekly. Home health will also continue with Port-A-Cath care in maintenance. This was discussed in detail with her PCP Dr. Kohler who agrees with plan of care in follow up. PCP will follow up on final cultures. Recommend to recheck urine culture in 2 weeks to monitor resolution. Recommend follow up with PCP in 1 week to follow up this hospitalization and continue her care. Patient with history of spina bifida and chronic pressure ulcer to the buttocks. Continue with current wound care and Infectious Disease recommendations. Patient with hypertension. At discharge she will continue with atenolol. Patient with chronic pain. At discharge she will continue with her chronic pain medication and follow up with pain management to further monitor and adjust medication. Diet: AHA Activity: Fall precautions Followup: NONE,NONE [Primary Care Provider] - Time spent managing pt's care (in minutes): 55
[2020-10-08 12:15] VITALS: BP 133/94
== END 2020-10-08 16:09 | disposition home health service (06) | DRG 690 ==
LOC: ER 11:20 → ERHOLD 14:20 → 2ND 16:32
PROVIDERS: ADMIT Family Medicine; ATTEND Family Medicine
PROC: 02HV33Z Insertion of Infusion Device into Superior Vena Cava, Percutaneous Approach (ICD-10-PCS; 2020-10-07)
PROC: 0JH63WZ Insertion of Totally Implantable Vascular Access Device into Chest Subcutaneous Tissue and Fascia, Percutaneous Approach (ICD-10-PCS; principal; 2020-10-07 10:00)
DX: N39.0 Urinary tract infection, site not specified (principal); Z16.12 Extended spectrum beta lactamase (ESBL) resistance; K21.9 Gastro-esophageal reflux disease without esophagitis; E86.0 Dehydration; G89.29 Other chronic pain; Q05.9 Spina bifida, unspecified; I10 Essential (primary) hypertension; L89.309 Pressure ulcer of unspecified buttock, unspecified stage; B96.20 Unspecified Escherichia coli [E. coli] as the cause of diseases classified elsewhere; Z88.1 Allergy status to other antibiotic agents; Z91.040 Latex allergy status; Z88.8 Allergy status to other drugs, medicaments and biological substances; Z91.048 Other nonmedicinal substance allergy status; Z79.899 Other long term (current) drug therapy; Z86.14 Personal history of Methicillin resistant Staphylococcus aureus infection; Z89.411 Acquired absence of right great toe; Z20.822 Contact with and (suspected) exposure to COVID-19
CPT/HCPCS: 36415; 71045; 76000; 80048; 81003; 81025; 83735; 85025; 87040; 87077; 87086; 87088; 87186; 96365; 96375; 99285; J1100; J1644; J1650; J2185; J2250; J2405; J2704; J3010; J7030; U0003

== ENCOUNTER 2020-10-31 12:10 | Inpatient (IN) | payer OTHER ==
--- OUTSIDE RECORDS SUMMARY | 2020-10-31 12:13 | XMS REPORT | Continuity of Care Document ---
:1990 Author Organization [facility] t Address [address] [place] [address] Care Team Providers Name Role Phone Samanta Smallwood MD Attending Clinician Doctor Unassigned, Name Attending Clinician Unavailable Pob, Lab Main Attending Clinician Unavailable Musa FERRARA, P Attending Clinician Jeff Meraz MD, Kermit Davila Attending Clinician + Problems This patient has no known problems. Allergies, Adverse Reactions, Alerts This patient has no known allergies or adverse reactions. Social History Social Habit Start Date Stop Date Quantity Comments Source Sex Assigned At [facility] Medications This patient has no known medications. Procedures This patient has no known procedures. Encounters Start End Encounter Admission Attending Care Care Encounter Source Date/Time Date/Time Type Type Clinicians Facility Department ID 2020-10-11 2020-10-11 Telephone GINNA Smallwood 1.2.840.114 [id number] 00:00:00 00:00:00 [employer] [id number] [place] 4.2.7.2.686 Jj [phone] nal [address] One 2020-10-10 2020-10-10 Orders Doctor HURTS 1.2.840.114 [id number] 00:00:00 00:00:00 Only Unassigned, JESSICA [id number] [facility] [id number] [id number] [id number] 2020-09-17 2020-09-17 [employer] Bryan, [facility] 1.2.840.114 [id number] 16:26:39 16:41:39 Visit Lab Main [place] [id number] [place] 4.2.7.2.686 Professio [phone] [address] 2020-09-17 2020-09-17 Orders Doctor NATALI 1.2.840.114 [id number] 00:00:00 00:00:00 Only Unassigned, JESSICA [id number] [facility] 4.2.7.2.686 [id number] [id number] 2020-07-05 2020-07-05 Canvas [employer] Bryan, [facility] 1.2.840.114 [id number] 14:05:50 14:20:50 Visit Lab Main [place] [id number] [place] 4.2.7.2.686 Professio [phone] [address] 2020-07-05 2020-07-05 Orders Doctor NATALI Tinoco2.840.114 [id number] 00:00:00 00:00:00 Only Unassigned, JESSICA 350.1.13.10 [facility] 4.2.7.2.686 [id number] [id number] 2020-05-17 2020-05-17 Orders Doctor NATALI Tinoco2.840.114 [id number] 00:00:00 00:00:00 Only Unassigned, JESSICA 350.1.13.10 [facility] 4.2.7.2.686 [id number] [id number] 2020-03-18 2020-03-18 Orders Doctor NATALI Tinoco2.840.114 [id number] 00:00:00 00:00:00 Only Unassigned, JESSICA 350.1.13.10 [facility] 4.2.7.2.686 [id number] [id number] 2020-03-09 2020-03-09 Orders Doctor NATALI Tinoco2.840.114 [id number] 00:00:00 00:00:00 Only Unassigned, JESSICA 350.1.13.10 [facility] 4.2.7.2.686 [id number] [id number] 2020-01-05 2020-01-05 Orders Doctor NATALI 1.2.840.114 [id number] 00:00:00 00:00:00 Only Unassigned, JESSICA 350.1.13.10 [facility] 4.2.7.2.686 [id number] [id number] 2019-12-18 2019-12-18 Telephone [facility] 1.2.840.114 [id number] 00:00:00 00:00:00 Wondiful A [place] 350.1.13.10 [place] 4.2.7.2.686 Professio [phone] [address] 2019-12-16 2019-12-16 [facility] 1.2.840.114 [id number] 00:00:00 00:00:00 Wondiful A [place] 350.1.13.10 [place] 4.2.7.2.686 Professio [phone] [address] 2019-12-09 2019-12-09 Orders Doctor NATALI 1.2.840.114 [id number] 00:00:00 00:00:00 Only Unassigned, JESSICA 350.1.13.10 [facility] 4.2.7.2.686 [id number] 2019-11-24 2019-11-24 Telephone [facility] 1.2.840.114 [id number] 00:00:00 00:00:00 Wondiful A [place] 350.1.13.10 [place] 4.2.7.2.686 Professio [phone] [address] 2019-11-24 2019-11-24 Orders Doctor NATALI 1.2.840.114 [id number] 00:00:00 00:00:00 Only Unassigned, JESSICA 350.1.13.10 [facility] 4.2.7.2.686 [id number] [id number] 2019-11-07 2019-11-07 Orders Doctor NATALI 1.2.840.114 [id number] 00:00:00 00:00:00 Only Unassigned, JESSICA 350.1.13.10 [facility] 4.2.7.2.686 [id number] [id number] 2019-11-05 2019-11-05 Telephone Cl [facility] 1.2.840.114 [id number] 00:00:00 00:00:00 Wondiful A [place] 350.1.13.10 [place] 4.2.7.2.[address] Profess[phone] 2019-10-30 2019-10-30 [facility] 1.2.840.114 [id number] 00:00:00 00:00:00 Wondiful [facility] 350.1.13.10 [place] 4.2.7.2.686 Professio [phone] [place] [address] Office [address] [facility] 2019-10-30 2019-10-30 Orders Doctor NATALI 1.2.840.114 [id number] 00:00:00 00:00:00 Only Unassigned, JESSICA 350.1.13.10 [place] [facility] 4.2.7.2.686 [id number] [id number] 2019-10-22 2019-10-22 Telephone Cl, [facility] 1.2.840.114 [id number] 00:00:00 00:00:00 [facility] 350.1.13.10 [place] 4.2.7.2.686 Professio [phone] [place] [address] [address] [facility] 2019-10-20 2019-10-20 Telephone Pitkin [facility] 1.2.840.114 [id number] 00:00:00 00:00:00 [facility] 350.1.13.10 [place] 4.2.7.2.686 Professio [phone] [place] [address] [address] [facility] 2019-10-15 2019-10-15 Telephone Cl [facility] 1.2.840.114 [id number] 00:00:00 00:00:00 [place] 350.1.13.10 [place] 4.2.7.2.686 Professio [phone] [place] [address] [address] [facility] 2019-10-08 2019-10-08 Telephone Cl [facility] 1.2.840.114 [id number] 00:00:00 00:00:00 [facility] 350.1.13.10 [place] 4.2.7.2.686 Jj [phone] nal 044 [address] One 2019-08-29 2019-08-29 Office CASPER Vigil 1.2.840.114 [id number] 13:02:13 13:12:13 Visit Roberto AMBULATOR 350.1.13.21 P Y 0.2.7.2.686 [id number] [id number] 2019-04-29 2019-04-29 Office Jeff SHIRLEY [id number] 10:53:12 12:18:36 Visit Kt AMBULATOR 350.1.13.21 Rasheed Carmen Y 0.2.7.2.686 Lola [phone] Results This patient has no known results.
[2020-10-31 13:00] LABS: Absolute Lymphocytes (CBC) 2.2 K/uL (0.7-4.9); Basophils % 0.4 % (0-1.3); Hematocrit 38.2 % (36.0-45.0); MPV 8.1 fL (7.6-11.3); RBC Red Blood Cell Count 4.28 M/uL (3.86-4.86)
[2020-10-31 13:19] LABS: BUN Blood Urea Nitrogen 6 mg/dL (7-18); Bicarbonate 26 mmol/L (21-32); Glucose Level 95 mg/dL (74-106); Potassium 4.4 mmol/L (3.5-5.1); Sodium Level 139 mmol/L (136-145)
[2020-10-31 13:56] LABS: Urine Blood NEGATIVE (Negative); Urine Glucose NEGATIVE (Negative); Urine Protein NEGATIVE (NEG)
[2020-10-31 14:03] LABS: Urine Bacteria LOADED /HPF (<20); Urine RBC NONE SEEN /HPF (NONE SEEN)
--- NOTE | 2020-10-31 14:03 | EDPHYS ---
Physician Documentation [facility] Name: Shari Estrella Age: 30 yrs Sex: Female : 1990 Arrival Date: 10/31/2020 Time: 12:13 Bed 2 Private MD: ED Physician Jose Jain HPI: 10/31 12:32 This 30 yrs old Female presents to ER via EMS with complaints of Urinary rn Problem. 12:32 The patient presents with urinary symptoms, dysuria, frequency. Onset: The rn symptoms/episode began/occurred at an unknown time. Modifying factors: The symptoms are alleviated by nothing, the symptoms are aggravated by urinating. Associated signs and symptoms: Pertinent positives: dysuria, fever, urinary frequency, Pertinent negatives:. Severity of symptoms: At their worst the symptoms were mild, in the emergency department the symptoms are unchanged. The patient has experienced similar episodes in the past. The patient has been recently seen by a physician:. Reports recently admitted to hospital for 2 days, sent home on meropenem, feels like hasn't gotten over previous UTI, has frequent UTIs, + low grade fever, no cough/sob/congestion/abd pain. . Historical: - Allergies: 12:15 Adhesives; sv 12:15 Bactrim; sv 12:15 Demerol; sv 12:15 Latex, Natural Rubber; sv 12:15 Sulfa (Sulfonamide Antibiotics); sv 12:15 Vancomycin; sv - PMHx: 12:15 Hypertension; Pressure Ulcer to the Coccyx.; scoliosis; Sepsis; spina-bifida; UTI; sv - PSHx: 12:15 Shunt Placement; Back Surgery; sv - Family history:: not pertinent. - Hospitalizations: : No recent hospitalization is reported. ROS: 12:32 Constitutional: Negative for chills, and weight loss, Eyes: Negative for injury, pain, rn redness, and discharge, Cardiovascular: Negative for chest pain, palpitations, and edema, Respiratory: Negative for shortness of breath, cough, wheezing, and pleuritic chest pain, Abdomen/GI: Negative for abdominal pain, nausea, vomiting, diarrhea, and constipation, : + increased frequency and dysuria MS/Extremity: Negative for injury and deformity, Skin: Negative for injury, rash, and discoloration, Neuro: Negative for headache, numbness, tingling, and seizure. Exam: 12:32 Constitutional: This is a well developed, well nourished patient who is awake, alert, rn and in no acute distress. Head/Face: Normocephalic, atraumatic. Eyes: Periorbital areas with no swelling, redness, or edema. Cardiovascular: Regular rate and rhythm. No pulse deficits. Respiratory: No increased work of breathing, no retractions or nasal flaring. Skin: Warm, dry MS/ Extremity: No cyanosis. Neuro: Awake and alert, GCS 15 Vital Signs: 12:15 BP 142 / 95; Pulse 90; Resp 16; Temp 99.1(O); Pulse Ox 100% ; sv 13:30 BP 145 / 94; Pulse 89; Resp 17; Pulse Ox 96% on R/A; hb 14:30 BP 189 / 114; Pulse 88; Resp 15; Pulse Ox 95% on R/A; hb 15:30 BP 178 / 101; Pulse 74; Resp 15; Pulse Ox 97% on R/A; hb 16:30 BP 149 / 106; Pulse 76; Resp 17; Pulse Ox 97% on R/A; hb MDM: 12:14 Patient medically screened. rn 14:00 Differential diagnosis: urinary tract infection. Data reviewed: vital signs, nurses rn notes, old medical records, lab test result(s), and as a result, I will discharge patient. Counseling: I had a detailed discussion with the patient and/or guardian regarding: the historical points, exam findings, and any diagnostic results supporting the discharge/admit diagnosis, lab results, the need for further work-up and treatment in the hospital. Admission orders: after a detailed discussion of the patient's condition and case, the admit orders are written by me. ED course: Pt with known resistant UTIs, just finished 2 week course of meropenem yet still with fever and urinary symptoms, urine nitrate +, will admit to Dr. Hyde for further treatment, and f/u of susceptibility. . 10/31 12:15 Order name: CBC with Diff rn 10/31 12:15 Order name: Basic Metabolic Panel rn 10/31 12:15 Order name: Urine Culture rn 10/31 12:15 Order name: Urine Microscopic Only rn 10/31 12:15 Order name: Procalcitonin rn 10/31 12:15 Order name: Blood Culture Adult (2) rn 10/31 12:16 Order name: CBC with Automated Diff; Complete Time: 13:17 EDMS 10/31 12:16 Order name: Basic Metabolic Panel; Complete Time: 13:38 EDMS 10/31 12:16 Order name: Urine Culture EDMS 10/31 13:35 Order name: Urine Dipstick--Ancillary (enter results) eb 10/31 14:23 Order name: COVID-19 : Document "Date of Symptom Onset" if Symptomatic. ss 10/31 14:38 Order name: CBC with Automated Diff EDMS 10/31 14:38 Order name: CBC with Automated Diff EDMS 10/31 14:38 Order name: Comprehensive Metabolic Panel EDMS 10/31 12:15 Order name: IV Start; Complete Time: 12:56 rn 10/31 12:15 Order name: Urine Dipstick-Ancillary (obtain specimen); Complete Time: 13:27 rn 10/31 14:38 Order name: Regular EDMS 10/31 14:38 Order name: Comprehensive Metabolic Panel EDWV 10/31 15:55 Order name: SARS-COV-2 RT PCR EDMS Administered Medications: 14:40 Drug: [place] (HYDROcodone-acetaminophen) 10 mg-325 mg 1 tabs Route: PO; hb 15:32 Drug: Meropenem 1 grams Route: IV; Rate: calculated rate; Site: Port-a-cath; hb 15:33 Drug: morphine 2 mg Route: IVP; Site: Port-a-cath; hb Disposition: 10/31/20 14:02 Hospitalization ordered by Margarita Hyde for Observation. Preliminary diagnosis is Urinary tract infection, site not specified. - Bed requested for Telemetry/MedSurg (observation). - Status is Observation. sv - Condition is Stable. - Problem is an ongoing problem. - Symptoms are unchanged. Signatures: Dispatcher [employer] EDWV Mckenzie Miner RN RN sv Nieto, Roman, MD MD rn Baxter, Heather, RN RN hb Botello, Elizabeth eb Corrections: (The following items were deleted from the chart) 16:31 14:02 Hospitalization Ordered by Margarita Hyde MD for Observation. Preliminary eb diagnosis is Urinary tract infection, site not specified. Bed requested for Telemetry/MedSurg (observation). Status is Observation. Condition is Stable. Problem is an ongoing problem. Symptoms are unchanged. rn 17:10 16:31 10/31/2020 14:02 Hospitalization Ordered by Margarita Hyde MD for Observation. sv Preliminary diagnosis is Urinary tract infection, site not specified. Bed requested for Telemetry/MedSurg (observation). Status is Observation. Condition is Stable. Problem is an ongoing problem. Symptoms are unchanged. eb
--- NOTE | 2020-10-31 14:03 | ER ---
Nurse's Notes [facility] Name: Shari Estrella Age: 30 yrs Sex: Female : 1990 Arrival Date: 10/31/2020 Time: 12:13 Bed 2 Private MD: Diagnosis: Urinary tract infection, site not specified Presentation: 10/31 12:13 Chief complaint: EMS states: chronic UTIs has been treated 2 weeks ago with IV abx but sv reports she still feels like she has it. Risk Assessment: Do you want to hurt yourself or someone else? Patient reports no desire to harm self or others. Onset of symptoms was October 31, 2020. 12:13 Method Of Arrival: EMS: [facility] sv 12:13 Acuity: SAMAN 3 sv 12:15 Initial Sepsis Screen: Does the patient meet any 2 criteria? No. Patient's initial sv sepsis screen is negative. Does the patient have a suspected source of infection? Yes: Dysuria/Frequency/Urgency/UTI. 19:35 Coronavirus screen: Client denies travel out of the [place] in the last 14 days. Ebola ss Screen: Patient denies exposure to infectious person. Patient denies travel to an Ebola-affected area in the 21 days before illness onset. Historical: - Allergies: 12:15 Adhesives; sv 12:15 Bactrim; sv 12:15 Demerol; sv 12:15 Latex, Natural Rubber; sv 12:15 Sulfa (Sulfonamide Antibiotics); sv 12:15 Vancomycin; sv - PMHx: 12:15 Hypertension; Pressure Ulcer to the Coccyx.; scoliosis; Sepsis; spina-bifida; UTI; sv - PSHx: 12:15 Shunt Placement; Back Surgery; sv - Family history:: not pertinent. - Hospitalizations: : No recent hospitalization is reported. Screenin:30 Abuse screen: Denies threats or abuse. Denies injuries from another. Nutritional ca1 screening: No deficits noted. Tuberculosis screening: No symptoms or risk factors identified. Fall Risk Secondary diagnosis (15 points) impaired mobility, IV access (20 points). Gait- Impaired (20 pts.). Total Aburto Fall Scale indicates High Risk Score (45 or more points). Fall prevention measures have been instituted. Side Rails Up X 2 As available patient and family educated on Fall Prevention Program and Strategies. Assessment: 12:30 General: Appears in no apparent distress. comfortable, Behavior is calm, cooperative, ca1 appropriate for age. General: Reports fever for > 3 days. Pain: Denies pain. Neuro: Level of Consciousness is awake, alert, obeys commands, Oriented to person, place, time, situation. Cardiovascular: Heart tones S1 S2 present Capillary refill < 3 seconds Patient's skin is warm and dry. Respiratory: Airway is patent Respiratory effort is even, unlabored, Respiratory pattern is regular, symmetrical. GI: Abdomen is flat, non-distended, Bowel sounds present X 4 quads. Abd is soft and non tender X 4 quads. :. EENT: No signs and/or symptoms were reported regarding the EENT system. Derm: Skin is intact, is healthy with good turgor, Skin is pink, warm \\T\\ dry. Musculoskeletal: Circulation, motion, and sensation intact. Capillary refill < 3 seconds. 13:30 Reassessment: Patient appears in no apparent distress at this time. Patient and/or hb family updated on plan of care and expected duration. Pain level reassessed. Patient is alert, oriented x 3, equal unlabored respirations, skin warm/dry/pink. 14:14 Reassessment: Patient appears in no apparent distress at this time. Patient and/or hb family updated on plan of care and expected duration. Pain level reassessed. Patient is alert, oriented x 3, equal unlabored respirations, skin warm/dry/pink. 14:40 Reassessment: Pt c/o "back and kidney pain" 05/15. Dr. Jain notified, [place] hb administered as ordered. 15:45 Reassessment: Patient appears in no apparent distress at this time. Patient and/or hb family updated on plan of care and expected duration. Pain level reassessed. Patient is alert, oriented x 3, equal unlabored respirations, skin warm/dry/pink. 16:30 Reassessment: Patient appears in no apparent distress at this time. Patient and/or hb family updated on plan of care and expected duration. Pain level reassessed. Patient is alert, oriented x 3, equal unlabored respirations, skin warm/dry/pink. 16:40 Reassessment: Attempted to call report, nurse unavailable. sv Vital Signs: 12:15 BP 142 / 95; Pulse 90; Resp 16; Temp 99.1(O); Pulse Ox 100% ; sv 13:30 BP 145 / 94; Pulse 89; Resp 17; Pulse Ox 96% on R/A; hb 14:30 BP 189 / 114; Pulse 88; Resp 15; Pulse Ox 95% on R/A; hb 15:30 BP 178 / 101; Pulse 74; Resp 15; Pulse Ox 97% on R/A; hb 16:30 BP 149 / 106; Pulse 76; Resp 17; Pulse Ox 97% on R/A; hb ED Course: 12:13 Patient arrived in ED. sv 12:14 Jose Jain MD is Attending Physician. rn 12:14 Triage completed. sv 12:15 Arm band placed on. sv 12:23 Silvia Portillo, RN is Primary Nurse. ca1 12:30 Patient has correct armband on for positive identification. Placed in gown. Bed in low ca1 position. Call light in reach. Side rails up X2. equipment monitor phototypesetting on. Pulse ox on. NIBP on. Warm blanket given. 12:56 Initial lab(s) drawn, by me, sent to lab. Accessed Port-a-Cath. using accessed w/ # 20 ca1 Recio needle, ,sterile technique, per hospital protocol. Clean \\T\\ dry. Good blood return. Flushes easily. 13:02 Basic Metabolic Panel Sent. sv 13:02 CBC with Diff Sent. sv 13:32 Urine collected: straight cath specimen, clear, Amount Returned: 50mL. Straight cath ca1 inserted, using sterile technique, 18 Fr. Specimen obtained. Returned clear yellow urine. Patient tolerated well. 13:33 Silvia Portillo, RN is Primary Nurse. ca1 14:02 Margarita Hyde MD is Hospitalizing Provider. rn 17:10 No provider procedures requiring assistance completed. Patient admitted, IV remains in ss place. Administered Medications: 14:40 Drug: [place] (HYDROcodone-acetaminophen) 10 mg-325 mg 1 tabs Route: PO; hb 15:32 Drug: Meropenem 1 grams Route: IV; Rate: calculated rate; Site: Port-a-cath; hb 15:33 Drug: morphine 2 mg Route: IVP; Site: Port-a-cath; hb Outcome: 14:02 Decision to Hospitalize by Provider. rn 17:00 Admitted to Med/surg accompanied by tech, via stretcher, room 230, with chart, Report sv called to Mariela BRIZUELA 17:00 Condition: stable 17:00 Instructed on the need for admit. 17:10 Patient left the ED. guillermo Signatures: Mckenzie Miner, RN Jose Escalante MD MD rn Smirch, Shelby, RN RN ss Eli Lewis RN RN hb Acvj, Silvia RN RN ca1
[2020-10-31] MEDS ORDERED: ONDANSETRON 4 MG/2 ML VIAL IV PRN (14:35)
[2020-10-31] MEDS ORDERED: ALBUTEROL 2.5 MG/3 ML NEB SOL NEB PRN (14:35)
--- NOTE | 2020-10-31 14:43 | P.HP ---
Certification for Inpatient With expected LOS: >2 Midnights Patient will require the following post-hospital care: None Practitioner: I am a practitioner with admitting privileges, knowledge of patient current condition, hospital course, and medical plan of care. 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 Symptoms similar to previous episodes of UTI. She denies any dysuria or hematuria with self cath now . On presentation she was noted with positive urinalysis with leukocyte esterase. She has a low- grade fever of 99.5. She has been admitted for recurrent presumed resistant UTI. Allergies adhesive tape Allergy (Verified 07/29/19 01:10) Rash Latex, Natural Rubber Allergy (Verified 07/29/19 01:10) Rash Sulfa (Sulfonamide Antibiotics) Allergy (Verified 07/29/19 01:10) Hives/Rash sulfamethoxazole [From Bactrim] Allergy (Verified 07/29/19 01:10) Hives trimethoprim [From Bactrim] Allergy (Verified 07/29/19 01:10) Hives vancomycin Allergy (Verified 07/29/19 01:10) Hives/Rash Adhesives Allergy (Uncoded 07/08/17 16:36) Unknown Home Medications: Atenolol [Tenormin] 100 mg PO DAILY 02/17/20 Diphenhydramine [Benadryl*] 50 mg PO BEDTIME PRN PRN 02/17/20 Oxycodone HCl/Acetaminophen [Oxycodone-Acetaminophen 10-325] 1 each PO Q6HP PRN 02/17/20 Silver Nit [Silver Nitrate Applicators*] 1 appl TOP SEECOM #1 packet 09/07/20 Lidocaine 30 gm TP BID PRN #1 cream..g. 10/08/20 - Past Medical/Surgical History Diabetic: No -: Stage 4 decubitus ulcer -: Spina Bifida -: MRSA -: scoliosis -: HTN -: GERD -: Osteomyelitis -: Recurrent UTI -: Multiple back surgeries -: Right great toe amputated -: bowel surgery cecostomy -: Suprapubic stoma -: [employer] MACHINE [employer] shunt Psychosocial/ Personal History: Patient lives at home - Family History Mother -: Hypertension, Diabetes, Other (see notes) Notes: Lupus Father -: Hypertension, Diabetes Notes: Hyperlipidemia - Social History Smoking Status: Never smoker Alcohol use: No CD- Drugs: No Caffeine use: Yes Review of Systems 10-point ROS is otherwise unremarkable Physical Examination - Physical Exam General: Alert, In no apparent distress, Oriented x3 HEENT: Atraumatic, Normocephalic, PERRLA Neck: Supple, 2+ carotid pulse no bruit, JVD not distended Respiratory: Clear to auscultation bilaterally, Normal air movement Cardiovascular: No edema, Normal pulses, Regular rate/rhythm, Normal S1 S2 Capillary refill: <2 Seconds Gastrointestinal: Normal bowel sounds, Soft and benign, Non-distended Musculoskeletal: No clubbing, No swelling, Other (kyphoscoliosis insitu , shorten torso) Integumentary: No rashes, No breakdown, No significant lesion, Other (left buttock with granulating ulcer , no erythema , dsg over area ) Neurological: Normal gait, Normal strength at 5/5 x4 extr, Sensation intact, Cranial nerves 3-12 intact External genitalia: No edema, No lesions - Studies Laboratory Data (last 24 hrs) 10/31/20 12:53: Sodium 139, Potassium 4.4, BUN 6 L, Creatinine 0.22 L, Glucose 95 10/31/20 12:53: WBC 8.60, Hgb 12.6, Hct 38.2, Plt Count 311 Assessment and Plan - Problems (Diagnosis) (1) Infection due to ESBL-producing Escherichia coli Current Visit: No Status: Acute (2) UTI (urinary tract infection) Onset Date: 07/12/15 Current Visit: No Status: Acute Qualifiers: (3) Spina bifida Onset Date: 06/01/17 Current Visit: No Status: Chronic Qualifiers: - Advance Directives Does patient have a Living Will: No Does patient have a Durable POA for Healthcare: No Physician Review: Patient Assessed, Agree with Above Assessment and Plan Physician Review Additional Text: Recurrent UTI History of spina bifida Left Buttock decubitus ucler /sacral decubitus -healing Indwelling left chemo-port PLAN -will admit patient to observation -Start empirical meropenem given prior history of multiple resistant organisms -follow urine culture. -Follow blood culture -Start gentle IV fluid with D5 NS via chemo port -Avoid nephrotoxins - DVT prophylaxis with heparin. -P.r.n. pain regimen -Elevated BP, May be due to uncontrolled pain , restart home atenolol -may need Norvasc added
[2020-10-31] MEDS ORDERED: Meropenem 1 GM/100 ML BAG IV SCH ×2 (14:45→17:00)
[2020-10-31] MEDS ORDERED: HYDROCODONE/APAP 10/325 TAB ONE (14:54)
[2020-10-31] MEDS ORDERED: LORAZEPAM 0.5 MG TABLET PO PRN (15:03)
[2020-10-31] MEDS ORDERED: HYDRALAZINE HCL 20 MG/ML VIAL IV PRN (15:03)
[2020-10-31] MEDS ORDERED: Meropenem 1 GM/100 ML BAG ONE (15:37)
[2020-10-31] MEDS ORDERED: MORPHINE 2 MG/ML SYR ONE (15:45)
[2020-10-31] MEDS ORDERED: DIPHENHYDRAMINE 25 MG TAB/CAP PO PRN (15:55)
[2020-10-31] MEDS ORDERED: LIDOCAINE TOP PRN (15:55)
[2020-10-31] MEDS ORDERED: SILVER NITRATE 1 APPL TOP SCH (16:00)
[2020-10-31] MEDS ORDERED: Meropenem 1000 MG/VIAL IV SCH (17:00)
[2020-10-31] MEDS: Oxycodone HCl/Acetaminophen 1 TAB TAB PO PRN ×2 (17:46→21:50)
[2020-10-31] MEDS: D5 0.9 NS 1,000 ML IV SCH (17:48)
[2020-10-31 18:33] VITALS: BMI 29.9
[2020-10-31] MEDS ORDERED: ZOLPIDEM TARTRATE 5 MG TABLET PO PRN (21:47)
[2020-10-31] MEDS: Meropenem 1 GM/100 ML BAG IV SCH (23:38)
[2020-11-01] MEDS: D5 0.9 NS 1,000 ML IV SCH ×4 (00:02→23:31)
[2020-11-01 02:17] VITALS: O2SAT 96
[2020-11-01] MEDS: Oxycodone HCl/Acetaminophen 1 TAB TAB PO PRN ×3 (03:17→15:14)
[2020-11-01] MEDS: atenoloL 50 MG TAB PO SCH (05:34)
[2020-11-01 06:06] LABS: Basophils % 0.6 % (0-1.3); Hematocrit 32.9 % (36.0-45.0); Lymphocytes % 39.6 % (15.3-44.8); MPV 8.2 fL (7.6-11.3); RBC Red Blood Cell Count 3.59 M/uL (3.86-4.86)
[2020-11-01 06:25] LABS: ALT/SGPT 13 U/L (12-78); AST/SGOT 11 U/L (15-37); Albumin 2.7 g/dL (3.4-5.0); Alkaline Phosphatase 109 U/L (45-117); BUN Blood Urea Nitrogen 7 mg/dL (7-18); Bicarbonate 25 mmol/L (21-32); Bilirubin Total 0.2 mg/dL (0.2-1.0); Glucose Level 102 mg/dL (74-106); Potassium 3.8 mmol/L (3.5-5.1); Sodium Level 142 mmol/L (136-145)
[2020-11-01] MEDS: Meropenem 1 GM/100 ML BAG IV SCH (07:30)
[2020-11-01] MEDS: ENOXAPARIN 40 MG/0.4 ML SQ SCH (08:34)
[2020-11-01] MEDS ORDERED: HOME MED 1 EA UNK (Atenolol [Tenormin] 100 MG Tablet) PO SCH (09:00)
[2020-11-01] MEDS: Meropenem 1,000 MG in NA CHLORIDE 0.9% 100 ML IV SCH ×2 (09:49→17:07)
[2020-11-01] MEDS: MORPHINE 2 MG/ML SYR IV PRN ×2 (12:51→17:07)
--- NOTE | 2020-11-01 15:14 | P.PN ---
Subjective Date of Service: 11/01/20 Chief Complaint: Fever and flank pain Subjective: Improving, Doing well Physical Examination - Vital Signs Temperature: 98.8 F Blood Pressure: 120/70 Pulse: 85 Respirations: 18 Pulse Ox (%): 98 Assessment & Plan Discharge Plan: Home Plan to discharge in: 24 Hours Physician Review Additional Text: Physical exam: Patient alert, cooperative. Heart: Regular rate and rhythm Lungs: Clear to auscultation Abdomen: Soft nontender nondistended Extremities: Patient with spina bifida and severe scoliosis. Impression: Recurrent UTI likely E. coliESBL History of spina bifida Chronic left buttocks decubitus ulcer Hypertension Plan: Recurrent UTI likely E. coliESBL: Await culture results. Continue IV meropenem. If positive for E. coliESBL will need to arrange for IV antibiotic therapy as an outpatient. Infectious disease consulted. Await recommendations from infectious disease as this is her third infection within the past 6 weeks. Patient would benefit with urology evaluation as an outpatient. Anticipate discharge as early as tomorrow if culture results are finalized. History of spina bifida: Continue current plan of care Chronic left buttocks decubitus ulcer: Continue current treatment Hypertension: Continue home medication. Recurrent UTI Time Spent Managing Pts Care (In Minutes): 55
[2020-11-02] MEDS: Meropenem 1,000 MG in NA CHLORIDE 0.9% 100 ML IV SCH ×3 (00:42→16:24)
[2020-11-02] MEDS: Oxycodone HCl/Acetaminophen 1 TAB TAB PO PRN ×3 (05:17→17:28)
[2020-11-02] MEDS: atenoloL 50 MG TAB PO SCH (05:21)
--- NOTE | 2020-11-02 07:45 | P.DS ---
Admission Date: 10/31/20 Discharge Date: 11/02/20 Primary Care Provider: Dr. Kohler Disposition: DC HOME/HOME HEALTH CARE Discharge Condition: GOOD Reason for Admission: Fever and flank pain Consultations: Infectious disease-Dr. Ibarra Procedures: COVID: Negative Medical Problem List: Recurrent UTI likely E. coliESBL History of spina bifida Chronic left buttocks decubitus ulcer Hypertension History of neurogenic bladder Chronic pain Brief History of Present Illness: 30-year-old female with history of neurogenic bladder, spina bifida, and recurrent UTI. Patient has been treated with IV meropenem on the last 2 hospitalizations. Patient presented with fever, flank pain. Patient was admitted for further evaluation. UTI was suspected. Hospital Course: Patient presents with fever and flank pain. Patient found to have recurrent UTIESBLE. coli. Patient has had recurrent infections on the last 2 hospitalizations requiring IV antibiotic therapy. Infectious disease was consulted. Patient with history of neurogenic bladder. She self caths at least 4 times a day. Patient also with chronic constipation and uses enemas at times. At discharge will arrange for IV meropenem 1 g IV 3 times a day for 2 weeks. Patient has Port-A-Cath in place. Encourage to monitor her cleaning habits. We will also recommend urology evaluation as an outpatient to further evaluate and recommendation. Patient will follow up with her PCP within 1 week to follow-up his hospitalization and continue her care. UTI prevention provided. Patient with history of spina bifida and chronic left buttocks decubitus ulcer. Patient will continue with her current wound care plan of care. Patient with hypertension. At discharge she will continue with her medications of atenolol 100 mg 1 pill daily. Recommend to maintain blood pressure less than 130/80. Further adjustment can be done by her PCP. Patient with chronic pain. At discharge patient will continue with current pain medication. Follow-up with pain management to further monitor and address. Vital Signs/Physical Exam: Temp Pulse Resp BP Pulse Ox 98.7 F 90 90 H 139/74 98 11/02/20 04:00 11/02/20 05:21 11/02/20 06:17 11/02/20 05:21 11/02/20 06:17 General: Alert, In no apparent distress, Oriented x3, Cooperative HEENT: Atraumatic Neck: Supple Respiratory: Other (No respiratory concerns.) Cardiovascular: Normal pulses Gastrointestinal: No guarding Integumentary: Other (Patient with spina bifida and scoliosis) Neurological: Normal speech, Normal strength at 5/5 x4 extr, Normal tone, Normal affect Laboratory Data at Discharge: WBC 5.20 K/uL (4.3-10.9) D 11/01/20 05:35 Hgb 10.6 g/dL (12.0-15.0) L 11/01/20 05:35 Hct 32.9 % (36.0-45.0) L 11/01/20 05:35 Plt Count 230 K/uL (152-406) D 11/01/20 05:35 Sodium 142 mmol/L (136-145) 11/01/20 05:35 Potassium 3.8 mmol/L (3.5-5.1) 11/01/20 05:35 BUN 7 mg/dL (7-18) 11/01/20 05:35 Creatinine 0.25 mg/dL (0.55-1.3) L 11/01/20 05:35 Glucose 102 mg/dL (74-106) 11/01/20 05:35 Total Bilirubin 0.2 mg/dL (0.2-1.0) 11/01/20 05:35 AST 11 U/L (15-37) L 11/01/20 05:35 ALT 13 U/L (12-78) 11/01/20 05:35 Alkaline Phosphatase 109 U/L (45-117) 11/01/20 05:35 Home Medications: Atenolol [Tenormin] 100 mg PO DAILY 02/17/20 Diphenhydramine [Benadryl*] 50 mg PO BEDTIME PRN PRN 02/17/20 Oxycodone HCl/Acetaminophen [Oxycodone-Acetaminophen 10-325] 1 each PO Q6HP PRN 02/17/20 Lidocaine 30 gm TP BID PRN #1 cream..g. 10/08/20 Physician Discharge Instructions: Patient presents with fever and flank pain. Patient found to have recurrent UTIESBLE. coli. Patient has had recurrent infections on the last 2 hospitalizations requiring IV antibiotic therapy. Infectious disease was consulted. Patient with history of neurogenic bladder. She self caths at least 4 times a day. Patient also with chronic constipation and uses enemas at times. At discharge will arrange for IV meropenem 1 g IV 3 times a day for 2 weeks. Patient has Port-A-Cath in place. Encourage to monitor her cleaning habits. We will also recommend urology evaluation as an outpatient to further evaluate and recommendation. Patient will follow up with her PCP within 1 week to follow-up his hospitalization and continue her care. UTI prevention provided. Patient with history of spina bifida and chronic left buttocks decubitus ulcer. Patient will continue with her current wound care plan of care. Patient with hypertension. At discharge she will continue with her medications of atenolol 100 mg 1 pill daily. Recommend to maintain blood pressure less than 130/80. Further adjustment can be done by her PCP. Patient with chronic pain. At discharge patient will continue with current pain medication. Follow-up with pain management to further monitor and address. Diet: AHA Activity: Fall precautions Followup: NONE,NONE [Primary Care Provider] - Time spent managing pt's care (in minutes): 55
[2020-11-02] MEDS: MORPHINE 2 MG/ML SYR IV PRN ×2 (09:20→15:18)
[2020-11-02] MEDS: ENOXAPARIN 40 MG/0.4 ML SQ SCH (09:21)
[2020-11-02 10:16] VITALS: BP 123/77; TEMP 97.8
--- NOTE | 2020-11-02 10:27 | P.PN ---
Subjective Date of Service: 11/02/20 Primary Care Provider: Dr. Kohler Chief Complaint: Fever and flank pain The seen examined at bedside. She remain afebrile with no leukocytosis, patient is anemic. She denies any acute complaints. Decubitus wound is stable at this time. Review of Systems 10-point ROS is otherwise unremarkable Physical Examination - Vital Signs Temperature: 97.8 F Blood Pressure: 123/77 Pulse: 76 Respirations: 76 Pulse Ox (%): 97 - Physical Exam General: Alert, In no apparent distress HEENT: Normocephalic, PERRLA Neck: Supple, 2+ carotid pulse no bruit Respiratory: Clear to auscultation bilaterally Cardiovascular: No edema, Normal pulses Gastrointestinal: Soft and benign, Non-distended Musculoskeletal: Scoliosis, Other (spina bifida) Integumentary: Pressure ulcer (left buttock ) - Studies Laboratory Last Values WBC 8.60 K/uL (4.3-10.9) 10/31/20 12:53 RBC 4.28 M/uL (3.86-4.86) 10/31/20 12:53 Hgb 12.6 g/dL (12.0-15.0) 10/31/20 12:53 Hct 38.2 % (36.0-45.0) 10/31/20 12:53 MCV 89.1 fL (80-100) 10/31/20 12:53 MCH 29.4 pg (27.0-35.0) 10/31/20 12:53 MCHC 33.0 g/dL (32.0-36.0) 10/31/20 12:53 RDW 15.2 % (12.1-15.2) 10/31/20 12:53 Plt Count 311 K/uL (152-406) 10/31/20 12:53 MPV 8.1 fL (7.6-11.3) 10/31/20 12:53 Neutrophils % 65.3 % (41.7-73.7) 10/31/20 12:53 Lymphocytes % 26.0 % (15.3-44.8) 10/31/20 12:53 Monocytes % 6.1 % (3.3-12.3) 10/31/20 12:53 Eosinophils % 2.2 % (0-4.4) 10/31/20 12:53 Basophils % 0.4 % (0-1.3) 10/31/20 12:53 Absolute Neutrophils 5.6 K/uL (1.8-8.0) 10/31/20 12:53 Absolute Lymphocytes 2.2 K/uL (0.7-4.9) 10/31/20 12:53 Absolute Monocytes 0.5 K/uL (0.1-1.3) 10/31/20 12:53 Absolute Eosinophils 0.2 K/uL (0-0.5) 10/31/20 12:53 Absolute Basophils 0.0 K/uL (0-0.5) 10/31/20 12:53 Sodium 139 mmol/L (136-145) 10/31/20 12:53 Potassium 4.4 mmol/L (3.5-5.1) 10/31/20 12:53 Chloride 107 mmol/L (98-107) 10/31/20 12:53 Carbon Dioxide 26 mmol/L (21-32) 10/31/20 12:53 BUN 6 mg/dL (7-18) L 10/31/20 12:53 Creatinine 0.22 mg/dL (0.55-1.3) L 10/31/20 12:53 Estimated GFR > 90 mL/min (=/>90) 10/31/20 12:53 Glucose 95 mg/dL (74-106) 10/31/20 12:53 Calcium 9.2 mg/dL (8.5-10.1) 10/31/20 12:53 Procalcitonin < 0.05 ng/mL (<0.050) 10/31/20 12:53 Urine pH 6.0 (5.0-7.0) 10/31/20 13:35 Ur Specific [place] 1.020 (1.005-1.030) 10/31/20 13:35 Glucose (UA)(Auto) Negative (Negative) 10/31/20 13:35 Urine Ketones Negative (Negative) 10/31/20 13:35 Urine Blood Negative (Negative) 10/31/20 13:35 Urine Nitrite Positive (NEG) H 10/31/20 13:35 Ur Leukocyte Esterase Trace (NEG) H 10/31/20 13:35 Urine RBC None seen /HPF (NONE SEEN) 10/31/20 13:27 Urine WBC 5-10 /HPF (<5) H 10/31/20 13:27 Ur Squamous Epith Cells <5 /HPF (NONE SEEN) 10/31/20 13:27 Urine Bacteria Loaded /HPF (<20) H 10/31/20 13:27 Urine Culture Reflexed Not needed 10/31/20 13:27 Urine Total Protein Negative (NEG) 10/31/20 13:35 SARS-CoV-2 RNA (RT-PCR) Negative (NEGATIVE) 10/31/20 14:32 Microbiology Data (last 24 hrs): 10/31/20 13:27 Catheterized Urine [place] Count - Final >100,000 CFU/ML. 10/31/20 13:27 Catheterized Urine - Final Escherichia Coli Esbl Assessment And Plan - Plan Assessment: -ESBL E. coli UTI -spina bifida -chronic decubitus wound to left buttock plan: -continue meropenem for 7 days -continue outpatient wound care -medical management per primary team -continue monitor CBC and BMP -continue monitor for signs of infection Plan of care discussed with Dr. Ibarra. Physician Review: Patient Assessed, Agree with Above Assessment and Plan
[2020-11-02] MEDS: D5 0.9 NS 1,000 ML IV SCH ×2 (11:11→17:00)
[2020-11-02] MEDS ORDERED: HEPARIN 500 UNIT/5 ML SYR IV PRN (17:09)
== END 2020-11-02 18:43 | disposition home health service (06) | DRG 690 ==
LOC: ER 12:10 → ERHOLD 14:36 → 2ND 17:02
PROVIDERS: ADMIT Internal Medicine; ATTEND Family Medicine
DX: N39.0 Urinary tract infection, site not specified (principal); Z16.12 Extended spectrum beta lactamase (ESBL) resistance; L89.321 Pressure ulcer of left buttock, stage 1; Q05.9 Spina bifida, unspecified; K21.9 Gastro-esophageal reflux disease without esophagitis; I10 Essential (primary) hypertension; B96.20 Unspecified Escherichia coli [E. coli] as the cause of diseases classified elsewhere; Z88.1 Allergy status to other antibiotic agents; Z91.040 Latex allergy status; Z88.5 Allergy status to narcotic agent; Z91.048 Other nonmedicinal substance allergy status; Z79.899 Other long term (current) drug therapy; Z86.14 Personal history of Methicillin resistant Staphylococcus aureus infection; Z89.411 Acquired absence of right great toe; Z20.822 Contact with and (suspected) exposure to COVID-19
CPT/HCPCS: 36415; 51702; 80048; 80053; 81003; 81015; 84145; 85025; 87040; 87077; 87086; 87088; 87186; 96374; 96375; 99285; J1642; J1650; J2185; J2270; J2405; J7042; U0003

== ENCOUNTER 2020-11-25 11:43 | Inpatient (IN) | payer OTHER ==
--- OUTSIDE RECORDS SUMMARY | 2020-11-25 11:45 | XMS REPORT | Continuity of Care Document ---
:1990 Author Organization [facility] t Address [address] [place] [address] Care Team Providers Name Role Phone Doctor Unassigned, Name Attending Clinician Unavailable Samanta Smallwood MD Attending Clinician Pob, Lab Main Attending Clinician Unavailable Musa FERRARA, P Attending Clinician Jeff Meraz MD, Kermit Davila Attending Clinician + Problems This patient has no known problems. Allergies, Adverse Reactions, Alerts This patient has no known allergies or adverse reactions. Social History Social Habit Start Date Stop Date Quantity Comments Source Sex Assigned At [facility] Medications This patient has no known medications. Procedures This patient has no known procedures. Encounters Start End Encounter Admission Attending Care Care Encounter Source Date/Time Date/Time Type Type Clinicians Facility Department ID 2020-11-08 2020-11-08 Orders Doctor HURST 1.2.840.114 [id number] 00:00:00 00:00:00 Only UnassJESSICA busby [id number] [place] [facility] [id number] [id number] 2020-10-11 2020-10-11 Telephone GINNA Smallwood 1.2.840.114 [id number] 00:00:00 00:00:00 [employer] [id number] [place] [phone] [facility] [address] 2020-10-10 2020-10-10 Orders Doctor HURST 1.2.840.114 [id number] 00:00:00 00:00:00 Only Unassigned, JESSICA [id number] [place] [facility] [id number] [id number] 2020-09-17 2020-09-17 Risk Assessment Analyst Erika Adams [place] 1.2.840.114 [id number] 16:26:39 16:41:39 Visit Lab Main [place] [id number] [place] [phone] [facility] 2020-09-17 2020-09-17 Orders Doctor HURST 1.2.840.114 [id number] 00:00:00 00:00:00 Only Unassigned, JESSICA [id number] [place] [facility] [id number] [id number] 2020-07-05 2020-07-05 Risk Assessment Analyst Erika Adams [facility] 1.2.840.114 [id number] 14:05:50 14:20:50 Visit Lab Main [place] [id number] [place] [id number] Professio [phone] [address] 2020-07-05 2020-07-05 Orders Doctor NATALI Reina.2.840.114 [id number] 00:00:00 00:00:00 Only Unassigned, JESSICA [id number] [place] [facility] [id number] [id number] 2020-05-17 2020-05-17 Orders Doctor NATALI Tinoco2.840.114 [id number] 00:00:00 00:00:00 Only Unassigned, JESSICA [id number] [place] [facility] [id number] [id number] 2020-03-18 2020-03-18 Orders Doctor NATALI Tinoco2.840.114 [id number] 00:00:00 00:00:00 Only Unassigned, JESSICA [id number] [place] [facility] [id number] [id number] 2020-03-09 2020-03-09 Orders Doctor NATALI 1.2.840.114 [id number] 00:00:00 00:00:00 Only Unassigned, JESSICA [id number] [place] [facility] [id number] [id number] 2020-01-05 2020-01-05 Orders Doctor NATALI 1.2.840.114 [id number] 00:00:00 00:00:00 Only Unassigned, JESSICA [id number] [place] [facility] [id number] [id number] [id number] 2019-12-18 2019-12-18 [facility] 1.2.840.114 [id number] 00:00:00 00:00:00 Wond[employer] A [place] [id number] [place] [id number] Professio [phone] [address] 2019-12-16 2019-12-16 [facility] 1.2.840.114 [id number] 00:00:00 00:00:00 Wondiful A [place] [id number] [place] [id number] Professio [phone] [address] 2019-12-09 2019-12-09 Orders Doctor HURST 1.2.840.114 [id number] 00:00:00 00:00:00 Only Unassigned, JESSICA [id number] [place] [facility] [id number] [id number] 2019-11-24 2019-11-24 [facility] 1.2.840.114 [id number] 00:00:00 00:00:00 Wondiful A [place] [id number] [place] [id number] Professio [phone] [address] 2019-11-24 2019-11-24 Orders Doctor HURTS 1.2.840.114 [id number] 00:00:00 00:00:00 Only Unassigned, JESSICA [id number] [place] [facility] [id number] [id number] [id number] 2019-11-07 2019-11-07 Orders Doctor NATALI 1.2.840.114 [id number] 00:00:00 00:00:00 Only Unassigned, JESSICA [id number] [place] [facility] [id number] [id number] [id number] 2019-11-05 2019-11-05 Telephone Cl [facility] 1.2.840.114 [id number] 00:00:00 00:00:00 Wondiful A [place] [id number] [place] [id number] Professio [phone] [address] 2019-10-30 2019-10-30 Telephone Cl [facility] 1.2.840.114 [id number] 00:00:00 00:00:00 Wondiful A [facility] [id number] [place] [id number] Professio [phone] [place] [address] [address] [facility] 2019-10-30 2019-10-30 Orders Doctor NATALI 1.2.840.114 [id number] 00:00:00 00:00:00 Only Unassigned, JESSICA [id number] [place] [facility] [id number] [id number] [id number] 2019-10-22 2019-10-22 Telephone Cl [facility] 1.2.840.114 [id number] 00:00:00 00:00:00 Wondiful A [facility] [id number] [place] [id number] Professio [phone] [place] [address] [address] 2019-10-20 2019-10-20 Telephone Cl [facility] 1.2.840.114 [id number] 00:00:00 00:00:00 Wondiful A [facility] [id number] [place] [id number] Professio [phone] [place] [address] [address] 2019-10-15 2019-10-15 Telephone Cl [facility] 1.2.840.114 [id number] 00:00:00 00:00:00 Wondiful A [facility] [id number] [place] [id number] Professio [phone] [place] [address] [address] 2019-10-08 2019-10-08 Telephone GINNA Smallwood 1.2.840.114 [id number] 00:00:00 00:00:00 Wondiful A [facility] [id number] [place] [id number] Professio [phone] [place] [address] [address] 2019-08-29 2019-08-29 Office CASPER Vigil 1.2.840.114 [id number] 13:02:13 13:12:13 Visit Roberto MCCORMACKATOR [id number] [place] 0.2.7.2.686 [id number] [id number] 2019-04-29 2019-04-29 Office Jeff SHIRLEY 1.2.273.345 [id number] 10:53:12 12:18:36 Visit Kt AMBULATOR 350.1.13.21 Rasheed Leon 0.2.7.2.686 [place] [phone] 800 Results This patient has no known results.
[2020-11-25 12:44] LABS: Absolute Lymphocytes (CBC) 1.4 K/uL (0.7-4.9); Basophils % 0.4 % (0-1.3); Hematocrit 38.5 % (36.0-45.0); Lymphocytes % 21.5 % (15.3-44.8); MPV 8.3 fL (7.6-11.3)
[2020-11-25 12:58] LABS: ALT/SGPT 17 U/L (12-78); AST/SGOT 18 U/L (15-37); Albumin 3.2 g/dL (3.4-5.0); Alkaline Phosphatase 119 U/L (45-117); BUN Blood Urea Nitrogen 5 mg/dL (7-18); Bicarbonate 23 mmol/L (21-32); Bilirubin Direct < 0.1 mg/dL (0-0.2); Bilirubin Total 0.2 mg/dL (0.2-1.0); Glucose Level 113 mg/dL (74-106); Lipase 50 U/L (73-393); Potassium 3.5 mmol/L (3.5-5.1); Protein, Total 7.6 g/dL (6.4-8.2); Sodium Level 136 mmol/L (136-145)
[2020-11-25 13:38] LABS: Urine Blood Negative (Negative); Urine Glucose Negative (Negative); Urine Protein 1+ (Negative); Urine Specific Gravity 1.025 (1.005-1.030)
[2020-11-25 13:39] LABS: Platelet Estimate ADEQ; White Blood Cell Scan OK (OK)
[2020-11-25 13:40] LABS: Blood Morphology Comment NOT SEEN (NOT SEEN)
[2020-11-25 13:41] LABS: Urine Bacteria >50 /HPF (<20); Urine RBC <5 /HPF (NONE SEEN)
--- NOTE | 2020-11-25 16:15 | ER ---
Nurse's Notes [facility] Name: Shari Estrella Age: 30 yrs Sex: Female : 1990 Arrival Date: 11/25/2020 Time: 11:44 Bed 23 Private MD: Diagnosis: Acute cystitis Presentation: 11/25 12:05 Chief complaint: Patient states: Pt presents to ER via [facility] with complaints kg of Nausea, Vomiting, right back and flank x 3 days. Coronavirus screen: Client denies travel out of the [place] in the last 14 days. At this time, the client does not indicate any symptoms associated with coronavirus-19. Ebola Screen: Patient negative for fever greater than or equal to 101.5 degrees Fahrenheit, and additional compatible Ebola Virus Disease symptoms Patient denies exposure to infectious person. Patient denies travel to an Ebola-affected area in the 21 days before illness onset. Initial Sepsis Screen: Does the patient meet any 2 criteria? No. Patient's initial sepsis screen is negative. Does the patient have a suspected source of infection? No. Patient's initial sepsis screen is negative. Risk Assessment: Do you want to hurt yourself or someone else? Patient reports no desire to harm self or others. Onset of symptoms was November 22, 2020. Care prior to arrival: None. Care prior to arrival: Medication(s) given: zofran 4 mg, Toradol 30 ml IV. Activity prior to arrival: None. Mechanism of Injury: No Mechanism of Injury. Transition of care: patient was not received from another setting of care. 12:05 Method Of Arrival: EMS: [facility] kg 12:05 Acuity: SAMAN 3 kg Triage Assessment: 12:12 General: Appears in no apparent distress. Behavior is calm, cooperative, appropriate kg for age, quiet. Pain: Complains of pain in left low back and left mid back Pain began gradually, 2-3 days ago. Is continuous, Alleviated by medications. EENT: No deficits noted. Neuro: No deficits noted. Cardiovascular: No deficits noted. Respiratory: No deficits noted. GI: Reports nausea, vomiting. : No deficits noted. Reports Pt has spinal bifida with neurogenic bladder. Pt stated she self caths \\T\\4hrs. Pt stated, "I noticed my urine has been cloudy and had an odors for the last few days.". Derm: No deficits noted. Musculoskeletal: No deficits noted. 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 - Social history:: Smoking status: Patient/guardian denies using. Screenin:19 Abuse screen: Denies threats or abuse. Nutritional screening: No deficits noted. kg Tuberculosis screening: No symptoms or risk factors identified. Fall Risk No fall in past 12 months (0 pts). Gait- Impaired (20 pts.). Assessment: 12:20 General: Appears in no apparent distress. Behavior is calm, cooperative, appropriate kg for age, quiet. Pain: Complains of pain in left low back and left mid back Pain currently is 8 out of 10 on a pain scale. Quality of pain is described as aching, sharp, Pain began 2-3 days ago. Is continuous, Alleviated by medications. Neuro: No deficits noted. Cardiovascular: No deficits noted. Respiratory: No deficits noted. GI: Reports nausea, vomiting. : Reports cloudy \\T\\ odorus. EENT: No deficits noted. Derm: No deficits noted. Musculoskeletal: No deficits noted. Vital Signs: 12:05 BP 123 / 98; Pulse 93; Resp 18; Temp 99.1; Pulse Ox 98% on R/A; Pain 8/10; kg 12:18 BP 123 / 98; Pulse 93; Resp 18; Temp 99.1; Pulse Ox 98% on R/A; Pain 8/10; kg 13:16 BP 120 / 80; Pulse 77; Resp 18; Pulse Ox 99% on R/A; Pain 8/10; kg 15:00 BP 114 / 80; Pulse 82; Resp 17; Pulse Ox 98% on R/A; kg 16:00 BP 118 / 90; Pulse 82; Resp 18; Pulse Ox 98% on R/A; kg 17:00 BP 120 / 84; Pulse 84; Resp 17; Pulse Ox 98% on R/A; Pain 9/10; kg 18:00 BP 114 / 80; Pulse 87; Resp 17; Pulse Ox 98% ; kg ED Course: 11:44 Patient arrived in ED. am2 11:53 Ethan Bonilla PA is PHCP. jr8 11:53 Jose Jain MD is Attending Physician. jr8 12:05 Christen Stewart is Primary Nurse. kg 12:11 Triage completed. kg 12:21 Inserted saline lock: 20 gauge in left antecubital area, using aseptic technique. kg Maintain EMS IV. Dressing intact. Good blood return noted. Site clean \\T\\ dry. Gauge \\T\\ site: 20 Left A/C. 12:22 CBC with Automated Diff Sent. kg 12:23 Basic Metabolic Panel Sent. kg 12:23 Basic Metabolic Panel Sent. kg 12:23 CBC with Diff Sent. kg 13:19 Christen Stewart is Primary Nurse. kg 16:14 Fern Ivory MD is Hospitalizing Provider. jr8 16:34 Inserted Accessed port to left chest. 20 G, Pt tolerated well, blood return noted. IV kg discontinued, intact, bleeding controlled, No redness/swelling at site. Pressure dressing applied. 16:46 Blood Culture Adult (2) Sent. kg 17:05 Blood Culture Adult (2) Sent. kg 17:11 Patient has correct armband on for positive identification. Allergy band placed. Bed in kg low position. Call light in reach. Side rails up X 1. 17:41 Blood Culture Adult (2) Sent. kg 19:18 Report given to Irma BRIZUELA. kg Administered Medications: 17:04 Drug: morphine 4 mg Route: IVP; Site: left subclavian; kg 17:40 Follow up: Response: Pain is decreased kg 17:04 Drug: Zofran (Ondansetron) 4 mg Route: IVP; Site: left subclavian; kg 17:40 Follow up: Response: No adverse reaction; Marked relief of symptoms; Pain is decreased kg 17:05 Drug: Meropenem 1 grams Route: IV; Rate: calculated rate; Site: left subclavian; kg 17:40 Follow up: IV Status: Completed infusion; IV Intake: 100ml kg 18:02 Drug: morphine 4 mg Route: IVP; Site: left subclavian; kg 20:13 Drug: [place] (HYDROcodone-acetaminophen) (7.5 mg-325 mg) 1 tabs Route: PO; cr4 Intake: 17:40 IV: 100ml; Total: 100ml. kg Outcome: 16:14 Decision to Hospitalize by Provider. jr8 11/26 00:41 Patient left the ED. iw Signatures: Apurva Saeed RN RN iw Irma Chow RN RN cr4 Ethan Bonilla PA PA 8 Zenaida Maloney am2 Christen Stewart kg Corrections: (The following items were deleted from the chart) 11/25 18:06 17:37 CORONAVIRUS+ drawn and sent. kg EDMS
--- NOTE | 2020-11-25 16:15 | EDPHYS ---
Physician Documentation [facility] Name: Shari Estrella Age: 30 yrs Sex: Female : 1990 Arrival Date: 11/25/2020 Time: 11:44 Bed 23 Private MD: ED Physician Jose Jain HPI: 11/25 12:20 This 30 yrs old Female presents to ER via EMS with complaints of Nausea, jr8 Urinary Problem. 12:20 Patient presents for UTI. She has them frequently and reports it is standard that she jr8 receive IV ABx. She reports foul smelling urine odor with flank pain.. 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 - Social history:: Smoking status: Patient/guardian denies using. ROS: 12:22 Cardiovascular: Negative for chest pain, palpitations, and edema, Respiratory: Negative jr8 for shortness of breath, cough, wheezing, and pleuritic chest pain, Abdomen/GI: Negative for abdominal pain, nausea, vomiting, diarrhea, and constipation, MS/Extremity: Negative for injury and deformity, Neuro: Negative for headache, weakness, numbness, tingling, and seizure. 12:22 Back: Positive for flank pain, bilaterally. 12:22 : Positive for flank pain, foul smelling urine. 12:22 All other systems are negative. jr8 Exam: 12:22 Chest/axilla: Normal chest wall appearance and motion. Nontender with no deformity. jr8 No lesions are appreciated. Cardiovascular: Regular rate and rhythm with a normal S1 and S2. No gallops, murmurs, or rubs. Normal PMI, no JVD. No pulse deficits. Respiratory: Lungs have equal breath sounds bilaterally, clear to auscultation and percussion. No rales, rhonchi or wheezes noted. No increased work of breathing, no retractions or nasal flaring. Abdomen/GI: Soft, non-tender, with normal bowel sounds. No distension or tympany. No guarding or rebound. No evidence of tenderness throughout. 12:22 Back: pain, that is moderate, of the left low back, left mid back, right mid back and right low back, CVA tenderness, that is moderate, is noted bilaterally, Pt is contractured with spina bifida . 12:22 : CVA tenderness, noted bilaterally. Vital Signs: 12:05 BP 123 / 98; Pulse 93; Resp 18; Temp 99.1; Pulse Ox 98% on R/A; Pain 8/10; kg 12:18 BP 123 / 98; Pulse 93; Resp 18; Temp 99.1; Pulse Ox 98% on R/A; Pain 8/10; kg 13:16 BP 120 / 80; Pulse 77; Resp 18; Pulse Ox 99% on R/A; Pain 8/10; kg 15:00 BP 114 / 80; Pulse 82; Resp 17; Pulse Ox 98% on R/A; kg 16:00 BP 118 / 90; Pulse 82; Resp 18; Pulse Ox 98% on R/A; kg 17:00 BP 120 / 84; Pulse 84; Resp 17; Pulse Ox 98% on R/A; Pain 9/10; kg 18:00 BP 114 / 80; Pulse 87; Resp 17; Pulse Ox 98% ; kg MDM: 11:53 Patient medically screened. [facility] 16:14 Data reviewed: vital signs, nurses notes, lab test result(s), and as a result, I will jr admit patient. Data interpreted: Pulse oximetry: on room air is 99 %. Interpretation: normal. Counseling: I had a detailed discussion with the patient and/or guardian regarding: the historical points, exam findings, and any diagnostic results supporting the discharge/admit diagnosis, lab results, the need for further work-up and treatment in the hospital. 11/25 11:53 Order name: Basic Metabolic Panel [facility] 11/25 11:53 Order name: CBC with Diff [facility] 11/25 11:53 Order name: Hepatic Function; Complete Time: 13:00 [facility] 11/25 11:53 Order name: Lipase; Complete Time: 13:00 [facility] 11/25 11:53 Order name: Urine Microscopic Only; Complete Time: 17:27 [facility] 11/25 11:54 Order name: Basic Metabolic Panel; Complete Time: 13:00 [facility] 11/25 11:54 Order name: CBC with Automated Diff; Complete Time: 13:56 [facility]IL 11/25 12:48 Order name: CBC Smear Scan; Complete Time: 13:56 EDMS 11/25 13:38 Order name: Urine Dipstick-Ancillary; Complete Time: 13:56 [facility]IL 11/25 15:58 Order name: Blood Culture Adult (2) [facility] 11/25 19:36 Order name: SARS-COV-2 RT PCR; Complete Time: 19:47 [facility]IL 11/25 11:53 Order name: IV Saline Lock; Complete Time: 12:23 [facility] 11/25 11:53 Order name: Labs collected and sent; Complete Time: 12:23 [facility] 11/25 11:53 Order name: Straight Cath - Urine; Complete Time: 16:46 jr8 Administered Medications: 17:04 Drug: morphine 4 mg Route: IVP; Site: left subclavian; kg 17:40 Follow up: Response: Pain is decreased kg 17:04 Drug: Zofran (Ondansetron) 4 mg Route: IVP; Site: left subclavian; kg 17:40 Follow up: Response: No adverse reaction; Marked relief of symptoms; Pain is decreased kg 17:05 Drug: Meropenem 1 grams Route: IV; Rate: calculated rate; Site: left subclavian; kg 17:40 Follow up: IV Status: Completed infusion; IV Intake: 100ml kg 18:02 Drug: morphine 4 mg Route: IVP; Site: left subclavian; kg 20:13 Drug: [place] (HYDROcodone-acetaminophen) (7.5 mg-325 mg) 1 tabs Route: PO; cr4 Disposition: 11/25/20 16:14 Hospitalization ordered by Fern Ivory for Inpatient Admission. Preliminary diagnosis is Acute cystitis. - Bed requested for Telemetry/MedSurg (Inpatient). - Status is Inpatient Admission. iw - Condition is Stable. - Problem is new. - Symptoms are unchanged. Addendum: 11/29/2020 19:28 Co-signature as Attending Physician, Jose Jain MD. r n Signatures: Dispatcher [employer] [facility] Apurva Saeed RN RN iw Ruiz, Claudia, RN RN cr4 Jose Jain MD MD rn Roszak, Josh, PA PA jr8 Christen Stewart kg Corrections: (The following items were deleted from the chart) 11/25 18:06 17:30 CORONAVIRUS+MR.LAB.BRZ ordered. EDMS EDMS 22:24 16:14 Hospitalization Ordered by Fern Ivory MD for Inpatient Admission. Preliminary iw diagnosis is Acute cystitis. Bed requested for Telemetry/MedSurg (Inpatient). Status is Inpatient Admission. Condition is Stable. Problem is new. Symptoms are unchanged. jr8 11/26 00:41 11/25 22:24 11/25/2020 16:14 Hospitalization Ordered by Fern Ivory MD for Inpatient iw Admission. Preliminary diagnosis is Acute cystitis. Bed requested for Telemetry/MedSurg (Inpatient). Status is Inpatient Admission. Condition is Stable. Problem is new. Symptoms are unchanged. iw
[2020-11-25] MEDS ORDERED: ONDANSETRON 4 MG/2 ML VIAL ONE (17:14)
[2020-11-25] MEDS ORDERED: Meropenem 1 GM/100 ML BAG ONE (17:14)
[2020-11-25] MEDS ORDERED: MORPHINE 4 MG/ML SYR ONE ×2 (17:14→18:15)
[2020-11-25] MEDS ORDERED: ONDANSETRON 4 MG/2 ML VIAL IV PRN (18:56)
[2020-11-25] MEDS ORDERED: ACETAMINOPHEN 500 MG TAB PO PRN (18:56)
[2020-11-25] MEDS: NA CHLORIDE 0.9% 1,000 ML IV SCH (19:00)
[2020-11-25] MEDS ORDERED: HYDROCODONE/APAP 7.5/325 MG TAB ONE (20:20)
[2020-11-25] MEDS ORDERED: NA CHLORIDE 0.9% 1,000 ML ONE (21:32)
[2020-11-26] MEDS: Meropenem 500 MG in NA CHLORIDE 0.9% 100 ML IV SCH ×3 (01:00→17:03)
[2020-11-26] MEDS ORDERED: Meropenem 500 MG VIAL IV SCH (01:00)
[2020-11-26] MEDS: HYDROMORPHONE HCL 0.5 MG/0.5 ML INJ IV PRN ×6 (01:16→21:05)
[2020-11-26 03:49] VITALS: BMI 29.9
[2020-11-26 06:36] LABS: Absolute Lymphocytes (CBC) 1.6 K/uL (0.7-4.9); Basophils % 0.2 % (0-1.3); Hematocrit 32.2 % (36.0-45.0); Lymphocytes % 35.9 % (15.3-44.8); MPV 7.8 fL (7.6-11.3); RBC Red Blood Cell Count 3.58 M/uL (3.86-4.86)
[2020-11-26 06:59] LABS: ALT/SGPT 13 U/L (12-78); AST/SGOT 15 U/L (15-37); Albumin 2.8 g/dL (3.4-5.0); Alkaline Phosphatase 101 U/L (45-117); BUN Blood Urea Nitrogen 7 mg/dL (7-18); Bicarbonate 24 mmol/L (21-32); Bilirubin Total 0.3 mg/dL (0.2-1.0); Glucose Level 89 mg/dL (74-106); Potassium 3.3 mmol/L (3.5-5.1); Protein, Total 6.8 g/dL (6.4-8.2); Sodium Level 139 mmol/L (136-145)
[2020-11-26] MEDS: NA CHLORIDE 0.9% 1,000 ML IV SCH ×2 (10:15→23:13)
--- NOTE | 2020-11-26 14:49 | P.HP ---
Certification for Inpatient Patient admitted to: Inpatient With expected LOS: >2 Midnights Patient will require the following post-hospital care: None Practitioner: I am a practitioner with admitting privileges, knowledge of patient current condition, hospital course, and medical plan of care. Services: Services provided to patient in accordance with Admission requirements found in Title 42 Section 412.3 of the Code of Federal Regulations Patient History Date of Service: 11/25/20 Reason for admission: Multi-drug resistant urinary tract infection/encephalopathy History of Present Illness: Patient is a 30-year-old female came to the hospital with fever and confusion. She has not been acting like herself for the last few days. She came to the [facility] room for further evaluation. In the emergency room, patient was found have a urinary tract infection. She has had numerous urinary tract infections recently. Patient has a Port-A-Cath. Patient will await culture results. Allergies adhesive tape Allergy (Verified 07/29/19 01:10) Rash Latex, Natural Rubber Allergy (Verified 07/29/19 01:10) Rash Sulfa (Sulfonamide Antibiotics) Allergy (Verified 07/29/19 01:10) Hives/Rash sulfamethoxazole [From Bactrim] Allergy (Verified 07/29/19 01:10) Hives trimethoprim [From Bactrim] Allergy (Verified 07/29/19 01:10) Hives vancomycin Allergy (Verified 07/29/19 01:10) Hives/Rash Adhesives Allergy (Uncoded 07/08/17 16:36) Unknown Home Medications: Atenolol [Tenormin] 100 mg PO DAILY 02/17/20 Diphenhydramine [Benadryl*] 50 mg PO BEDTIME PRN PRN 02/17/20 Oxycodone HCl/Acetaminophen [Oxycodone-Acetaminophen 10-325] 1 each PO Q6HP PRN 02/17/20 Lidocaine 30 gm TP BID PRN #1 cream..g. 10/08/20 - Past Medical/Surgical History Has patient received pneumonia vaccine in the past: No Diabetic: No -: Stage 4 decubitus ulcer -: Spina Bifida -: MRSA -: scoliosis -: HTN -: GERD -: Osteomyelitis -: Recurrent UTI -: Multiple back surgeries -: Right great toe amputated -: bowel surgery cecostomy -: Suprapubic stoma -: READING TUTOR shunt Psychosocial/ Personal History: Patient lives at home - Family History Mother Medical History: Hypertension, Diabetes, Other (see notes) Notes: Lupus Father Medical History: Hypertension, Diabetes Notes: Hyperlipidemia - Social History Smoking Status: Never smoker Alcohol use: No CD- Drugs: No Caffeine use: Yes Place of Residence: Home Review of Systems 10-point ROS is otherwise unremarkable Physical Examination - Vital Signs Temperature: 99.7 F Blood Pressure: 129/73 Pulse: 94 Respirations: 18 Pulse Ox (%): 96 - Physical Exam General: Alert, In no apparent distress, Oriented x3 HEENT: Atraumatic, PERRLA, Mucous membr. moist/pink, EOMI, Sclerae nonicteric Neck: Supple, 2+ carotid pulse no bruit, No LAD, Without JVD or thyroid abnormality Respiratory: Clear to auscultation bilaterally, Normal air movement Cardiovascular: Regular rate/rhythm, Normal S1 S2, No murmurs Gastrointestinal: Normal bowel sounds, Soft and benign, Non-distended, No tenderness Musculoskeletal: No clubbing, No swelling, No tenderness Integumentary: No rashes Neurological: Normal speech, Sensation intact, Cranial nerves 3-12 intact, Normal affect, Abnormal gait, Abnormal strength, Abnormal sensation Lymphatics: No axilla or inguinal lymphadenopathy Assessment & Plan - Problems (Diagnosis) (1) Acute pyelonephritis Current Visit: No Status: Acute (2) UTI (urinary tract infection) Onset Date: 07/12/15 Current Visit: No Status: Acute Qualifiers: (3) Dehydration Onset Date: 07/11/17 Current Visit: No Status: Acute (4) Infection due to ESBL-producing Escherichia coli Current Visit: No Status: Acute (5) Pressure ulcer of ischial area, stage 4 Onset Date: 06/01/17 Current Visit: No Status: Acute (6) Tachyarrhythmia Onset Date: 06/01/17 Current Visit: No Status: Acute (7) Anemia Onset Date: 07/11/17 Current Visit: No Status: Chronic Qualifiers: Anemia type: iron deficiency Iron deficiency anemia type: unspecified iron deficiency Qualified Code(s): D50.9 - Iron deficiency anemia, unspecified (8) Hypertension Onset Date: 06/01/17 Current Visit: No Status: Chronic Qualifiers: (9) Spina bifida Onset Date: 06/01/17 Current Visit: No Status: Chronic Qualifiers: (10) READING TUTOR (ventriculoperitoneal) shunt status Onset Date: 06/01/17 Current Visit: No Status: Chronic - Plan 1. Continue with IV antibiotic 2. Continue with local wound care 3. Arrange for outpatient IV antibiotic therapy 4. Gentle IV hydration 5. Monitor CBC 6. Strict blood sugar monitoring 7. Pain control 8. GI and DVT prophylaxis Discharge Plan: Home Plan to discharge in: Greater than 2 days - Advance Directives Does patient have a Living Will: No Does patient have a Durable POA for Healthcare: No - Code Status/Comfort Care Code Status Assessed: Yes Code Status: Full Code Critical Care: No Time Spent Managing PTS Care (In Minutes): 45
--- NOTE | 2020-11-26 14:56 | P.PN ---
Subjective Date of Service: 11/26/20 Subjective: No new changes, No C/O voiced, Improving Review of Systems 10-point ROS is otherwise unremarkable Physical Examination - Vital Signs Temperature: 99.7 F Blood Pressure: 129/73 Pulse: 94 Respirations: 18 Pulse Ox (%): 96 - Physical Exam General: Alert, In no apparent distress, Oriented x3 HEENT: Atraumatic, PERRLA, EOMI Neck: Supple, JVD not distended Respiratory: Clear to auscultation bilaterally, Normal air movement Cardiovascular: Regular rate/rhythm, Normal S1 S2 Gastrointestinal: Normal bowel sounds, No tenderness Musculoskeletal: No tenderness Integumentary: No rashes Neurological: Normal speech, Normal tone, Normal affect Lymphatics: No axilla or inguinal lymphadenopathy - Studies Medications List Reviewed: Yes Assessment & Plan - Problems (Diagnosis) (1) Acute pyelonephritis Status: Acute (2) UTI (urinary tract infection) Onset Date: 07/12/15 Status: Acute Qualifiers: (3) Dehydration Onset Date: 07/11/17 Status: Acute (4) Infection due to ESBL-producing Escherichia coli Status: Acute (5) Pressure ulcer of ischial area, stage 4 Onset Date: 06/01/17 Status: Acute (6) Tachyarrhythmia Onset Date: 06/01/17 Status: Acute (7) Anemia Onset Date: 07/11/17 Status: Chronic Qualifiers: Anemia type: iron deficiency Iron deficiency anemia type: unspecified iron deficiency Qualified Code(s): D50.9 - Iron deficiency anemia, unspecified (8) Hypertension Onset Date: 06/01/17 Status: Chronic Qualifiers: (9) Spina bifida Onset Date: 06/01/17 Status: Chronic Qualifiers: (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 Continue with IV antibiotic 2. Continue with local wound care 3. Arrange for outpatient IV antibiotic therapy 4. Gentle IV hydration 5. Monitor CBC 6. Strict blood sugar monitoring 7. Pain control 8. GI and DVT prophylaxis - Advance Directives Does patient have a Living Will: No Does patient have a Durable POA for Healthcare: No - Code Status/Comfort Care Code Status: Full Code
[2020-11-26] MEDS: JUVEN PACKET PO SCH (21:00)
[2020-11-27] MEDS: Meropenem 500 MG in NA CHLORIDE 0.9% 100 ML IV SCH ×3 (00:07→17:45)
[2020-11-27 03:04] VITALS: O2SAT 100
[2020-11-27] MEDS: HYDROMORPHONE HCL 0.5 MG/0.5 ML INJ IV PRN ×3 (03:16→12:31)
[2020-11-27] MEDS: JUVEN PACKET PO SCH ×2 (08:25→20:58)
[2020-11-27] MEDS: NA CHLORIDE 0.9% 1,000 ML IV SCH (11:00)
[2020-11-27] MEDS ORDERED: LIDOCAINE TOP PRN (14:00)
[2020-11-27] MEDS ORDERED: DIPHENHYDRAMINE 25 MG TAB/CAP PO PRN (14:00)
[2020-11-27] MEDS ORDERED: atenoloL 25 MG TAB PO ONE (14:00)
[2020-11-27] MEDS: Oxycodone HCl/Acetaminophen 1 TAB TAB PO PRN ×2 (14:43→21:05)
[2020-11-28] MEDS: Meropenem 500 MG in NA CHLORIDE 0.9% 100 ML IV SCH ×2 (01:04→08:28)
[2020-11-28] MEDS: NA CHLORIDE 0.9% 1,000 ML IV SCH (01:07)
[2020-11-28] MEDS: Oxycodone HCl/Acetaminophen 1 TAB TAB PO PRN ×3 (04:36→17:49)
[2020-11-28] MEDS: JUVEN PACKET PO SCH (08:28)
[2020-11-28] MEDS ORDERED: atenoloL 50 MG TAB PO SCH (09:00)
[2020-11-28] MEDS ORDERED: ERTAPENEM SODIUM 1 GM VIAL IVPB ONE (13:54)
[2020-11-28] MEDS: HYDROMORPHONE HCL 0.5 MG/0.5 ML INJ IV PRN (15:01)
[2020-11-28] MEDS ORDERED: ERTAPENEM NA 1 GM in NA CHLORIDE 0.9% 100 ML IVPB ONE (16:00)
[2020-11-28] MEDS ORDERED: HEPARIN 500 UNIT/5 ML SYR IV PRN (16:58)
[2020-12-09 08:24] VITALS: BP 129/73; TEMP 99.7
--- NOTE | 2020-12-09 08:31 | P.PN ---
Date of Service: 11/27/20 Subjective Subjective: Patient is clinically doing well with no new complaints. Awaiting for a rrangements for outpatient IV antibiotic therapy Review of Systems 10-point ROS is otherwise unremarkable Physical Examination - Vital Signs Reviewed - Physical Exam General: Alert, In no apparent distress, Oriented x3 Respiratory: Clear to auscultation bilaterally, Normal air movement Cardiovascular: Regular rate/rhythm, Normal S1 S2 Gastrointestinal: Normal bowel sounds, No tenderness Neurological: Normal speech, Normal tone, Normal affect Assessment & Plan - Problems (Diagnosis) (1) Acute pyelonephritis Status: Acute (2) UTI (urinary tract infection) Onset Date: 07/12/15 Status: Acute Qualifiers: (3) Dehydration Onset Date: 07/11/17 Status: Acute (4) Infection due to ESBL-producing Escherichia coli Status: Acute (5) Pressure ulcer of ischial area, stage 4 Onset Date: 06/01/17 Status: Acute (6) Tachyarrhythmia Onset Date: 06/01/17 Status: Acute (7) Anemia Onset Date: 07/11/17 Status: Chronic Qualifiers: Anemia type: iron deficiency Iron deficiency anemia type: unspecified iron deficiency Qualified Code(s): D50.9 - Iron deficiency anemia, unspecified (8) Hypertension Onset Date: 06/01/17 Status: Chronic Qualifiers: (9) Spina bifida Onset Date: 06/01/17 Status: Chronic Qualifiers: (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 Continue with IV antibiotic 2. Continue with local wound care 3. Awaiting for PICC line and then patient can discharge with outpatient IV antibiotic 4. Diet as tolerated 5. Monitor CBC 6. Strict blood sugar monitoring 7. Pain control 8. GI and DVT prophylaxis
--- NOTE | 2020-12-09 08:33 | P.DS ---
Discharge Date: 11/28/20 Disposition: DC HOME/HOME HEALTH CARE Discharge Condition: GOOD Reason for Admission: Multi-drug resistant urinary tract infection/encephalopathy - Problems (1) Acute pyelonephritis Status: Acute (2) UTI (urinary tract infection) Onset Date: 07/12/15 Status: Acute Qualifiers: (3) Dehydration Onset Date: 07/11/17 Status: Acute (4) Infection due to ESBL-producing Escherichia coli Status: Acute (5) Pressure ulcer of ischial area, stage 4 Onset Date: 06/01/17 Status: Acute (6) Tachyarrhythmia Onset Date: 06/01/17 Status: Acute (7) Anemia Onset Date: 07/11/17 Status: Chronic Qualifiers: Anemia type: iron deficiency Iron deficiency anemia type: unspecified iron deficiency Qualified Code(s): D50.9 - Iron deficiency anemia, unspecified (8) Hypertension Onset Date: 06/01/17 Status: Chronic Qualifiers: (9) Spina bifida Onset Date: 06/01/17 Status: Chronic Qualifiers: (10) BERRY PICKER (ventriculoperitoneal) shunt status Onset Date: 06/01/17 Status: Chronic Brief History of Present Illness: Patient is a 30-year-old female came to the hospital with fever and confusion. She has not been acting like herself for the last few days. She came to the emergency room for further evaluation. In the emergency room, patient was found have a urinary tract infection. She has had numerous urinary tract infections recently. Patient has a Port-A-Cath. Patient will await culture results. Hospital Course: Patient was found have multi-drug resistant urinary tract infection. We arrange for outpatient and advance therapy. Patient will need to follow-up with PCP as an outpatient. Continue with home health arrangements for outpatient antibiotic. Patient has family and friends who no had a sister in her antibiotics. At this time, patient is stable for discharge home. Vital Signs/Physical Exam: Temp Pulse Resp BP Pulse Ox 99.7 F 94 H 18 129/73 96 12/09/20 08:24 12/09/20 08:24 12/09/20 08:24 12/09/20 08:24 12/09/20 08:24 General: Alert, In no apparent distress, Oriented x3 Laboratory Data at Discharge: WBC 4.40 K/uL (4.3-10.9) D 11/26/20 06:00 Hgb 11.0 g/dL (12.0-15.0) L 11/26/20 06:00 Hct 32.2 % (36.0-45.0) L D 11/26/20 06:00 Plt Count 221 K/uL (152-406) 11/26/20 06:00 Sodium 139 mmol/L (136-145) 11/26/20 06:00 Potassium 3.3 mmol/L (3.5-5.1) L 11/26/20 06:00 BUN 7 mg/dL (7-18) 11/26/20 06:00 Creatinine 0.18 mg/dL (0.55-1.3) L 11/26/20 06:00 Glucose 89 mg/dL (74-106) 11/26/20 06:00 Total Bilirubin 0.3 mg/dL (0.2-1.0) 11/26/20 06:00 AST 15 U/L (15-37) 11/26/20 06:00 ALT 13 U/L (12-78) 11/26/20 06:00 Alkaline Phosphatase 101 U/L (45-117) 11/26/20 06:00 Lipase 50 U/L (73-393) L 11/25/20 12:21 Home Medications: Atenolol [Tenormin] 100 mg PO DAILY 02/17/20 Diphenhydramine [Benadryl*] 50 mg PO BEDTIME PRN PRN 02/17/20 Oxycodone HCl/Acetaminophen [Oxycodone-Acetaminophen 10-325] 1 each PO Q6HP PRN 02/17/20 Lidocaine 30 gm TP BID PRN #1 cream..g. 10/08/20 Hans [Hans*] 1 pkt PO BID #60 powd.pack 11/28/20 Ertapenem Na [Invanz] 1 gm IV DAILY #14 vial 12/09/20 New Medications: Ertapenem Na [Invanz] 1 gm IV DAILY #14 vial Hans [Hans*] 1 pkt PO BID #60 powd.pack Physician Discharge Instructions: PROBLEM: ESBL, UTI GOAL: Clear understanding of disease process INSTRUCTIONS: Diet: Heart healthy Activity: Fall precautions OK TO DC IV AND DC HOME FOLLOW-UP WITH PRIMARY CARE PROVIDER IN 1-2 WEEKS FOLLOW-UP WITH CARDIOLOGY IN 1-2 WEEKS RETURN TO THE ER IF symptoms worsen CALL or TEXT DR. KELLEY AT [phone] IF ANY QUESTIONS REGARDING HOSPITAL STAY. PLEASE CALL THE FLOOR AT [phone] IF ANY MEDICATION OR NURSING QUESTIONS. Diet: AHA Activity: Fall precautions Followup: Donell Murphy MD [ACTIVE - CAN ADMIT] - NONE,NONE [Primary Care Provider] - Time spent managing pt's care (in minutes): 35
== END 2020-11-28 18:54 | disposition home health service (06) | DRG 689 ==
LOC: ER 11:43 → ERHOLD 19:19 → 2ND 11-26
PROVIDERS: ADMIT Hospitalist; ATTEND Hospitalist
DX: N10 Acute pyelonephritis (principal); L89.204 Pressure ulcer of unspecified hip, stage 4; Z16.12 Extended spectrum beta lactamase (ESBL) resistance; G93.49 Other encephalopathy; E86.0 Dehydration; I10 Essential (primary) hypertension; D50.9 Iron deficiency anemia, unspecified; Q05.9 Spina bifida, unspecified; K21.9 Gastro-esophageal reflux disease without esophagitis; B96.20 Unspecified Escherichia coli [E. coli] as the cause of diseases classified elsewhere; N39.0 Urinary tract infection, site not specified; R00.0 Tachycardia, unspecified; Z88.1 Allergy status to other antibiotic agents; Z91.040 Latex allergy status; Z91.048 Other nonmedicinal substance allergy status; Z98.2 Presence of cerebrospinal fluid drainage device; Z79.899 Other long term (current) drug therapy; Z86.14 Personal history of Methicillin resistant Staphylococcus aureus infection; Z89.411 Acquired absence of right great toe; Z20.822 Contact with and (suspected) exposure to COVID-19
CPT/HCPCS: 36415; 80048; 80053; 80076; 81003; 81015; 83690; 85025; 87040; 87077; 87086; 87088; 87186; 96365; 96375; 99284; J1170; J1335; J1642; J2185; J2405; J7030; U0003

== ENCOUNTER 2021-01-02 06:00 | Inpatient (IN) | payer OTHER ==
--- OUTSIDE RECORDS SUMMARY | 2021-01-02 06:02 | XMS REPORT | Continuity of Care Document ---
:1990 Author Organization [facility] t Address [address] [place] [address] Care Team Providers Name Role Phone Doctor Unassigned, Name Attending Clinician Unavailable Cl FERRARA, Samanta Attending Clinician Pob, Lab Main Attending Clinician Unavailable Musa FERRARA, P Attending Clinician Jeff Meraz MD, Kermit Davila Attending Clinician + Problems This patient has no known problems. Allergies, Adverse Reactions, Alerts This patient has no known allergies or adverse reactions. Social History Social Habit Start Date Stop Date Quantity Comments Source Sex Assigned At [facility] Medications This patient has no known medications. Procedures This patient has no known procedures. Encounters Start End Encounter Admission Attending Care Care Encounter Source Date/Time Date/Time Type Type Clinicians Facility Department ID 2020-11-17 2020-11-17 Orders Doctor [facility] 1.2.840.114 [id number] 00:00:00 00:00:00 Only UnassJESSICA busby [id number] [facility] [id number] [id number] [id number] 2020-11-08 2020-11-08 [place] [facility] 1.2.840.114 [id number] 00:00:00 00:00:00 Only Unassigned, JESSICA [id number] [facility] [id number] [id number] [id number] 2020-10-11 2020-10-11 Telephone Cl [facility] 1.2.840.114 [id number] 00:00:00 00:00:00 [facility] [id number] [place] [id number] Professio [phone] [facility] [address] 2020-10-10 2020-10-10 Orders Doctor NATALI 1.2.840.114 [id number] 00:00:00 00:00:00 Only Unassigned, JESSICA [id number] [facility] [id number] [id number] 2020-09-17 2020-09-17 Certified Massage Therapist [facility] 1.2.840.114 [id number] 16:26:39 16:41:39 Visit Lab Main [place] [id number] [place] 4.2.7.2.686 Professio [phone] [address] 2020-09-17 2020-09-17 Orders Doctor [facility] 1.2.840.114 [id number] 00:00:00 00:00:00 Only Unassigned, JESSICA [id number] [facility] 4.2.7.2.686 [id number] [id number] 2020-07-05 2020-07-05 Certified Massage Therapist [facility] 1.2.840.114 [id number] 14:05:50 14:20:50 Visit Lab Main [place] [id number] [place] 4.2.7.2.686 Professio [phone] [address] 2020-07-05 2020-07-05 Orders Doctor NATALI Reina.2.840.114 [id number] 00:00:00 00:00:00 Only Unassigned, JESSICA [id number] [facility] 4.2.7.2.686 [id number] [id number] 2020-05-17 2020-05-17 Orders Doctor NATALI Reina.2.840.114 [id number] 00:00:00 00:00:00 Only Unassigned, JESSICA [id number] [facility] 4.2.7.2.686 [id number] [id number] 2020-03-18 2020-03-18 Orders Doctor NATALI 1.2.840.114 [id number] 00:00:00 00:00:00 Only Unassigned, JESSICA [id number] [facility] 4.2.7.2.686 [id number] [id number] 2020-03-09 2020-03-09 Orders Doctor NATALI 1.2.840.114 [id number] 00:00:00 00:00:00 Only Unassigned, JESSICA [id number] [facility] 4.2.7.2.686 [id number] [id number] 2020-01-05 2020-01-05 Orders Doctor NATALI 1.2.840.114 [id number] 00:00:00 00:00:00 Only Unassigned, JESSICA [id number] [facility] 4.2.7.2.686 [id number] [id number] 2019-12-18 2019-12-18 Telephone [facility] 1.2.840.114 [id number] 00:00:00 00:00:00 [facility] [place] 350.1.13.10 [place] 4.2.7.2.686 Professio [phone] [address] 2019-12-16 2019-12-16 Telephone [facility] 1.2.840.114 [id number] 00:00:00 00:00:00 [facility] [place] 350.1.13.10 [place] 4.2.7.2.686 Professio [phone] [address] 2019-12-09 2019-12-09 Orders Doctor NATALI 1.2.840.114 [id number] 00:00:00 00:00:00 Only Unassigned, JESSICA 350.1.13.10 [facility] 4.2.7.2.686 [id number] 009 2019-11-24 2019-11-24 Telephone [facility] 1.2.840.114 [id number] 00:00:00 00:00:00 [facility] [place] 350.1.13.10 [place] 4.2.7.2.686 Professio [phone] [address] 2019-11-24 2019-11-24 Orders Doctor NATALI 1.2.840.114 [id number] 00:00:00 00:00:00 Only Unassigned, JESSICA 350.1.13.10 [facility] 4.2.7.2.686 [id number] [id number] 2019-11-07 2019-11-07 Orders Doctor NATALI 1.2.840.114 [id number] 00:00:00 00:00:00 Only Unassigned, JESSICA 350.1.13.10 [facility] 4.2.7.2.686 [id number] [id number] 2019-11-05 2019-11-05 Telephone Cl [facility] 1.2.840.114 [id number] 00:00:00 00:00:00 [facility] [place] 350.1.13.10 [place] 4.2.7.2.686 Professio [phone] [address] 2019-10-30 2019-10-30 Telephone Cl [facility] 1.2.840.114 [id number] 00:00:00 00:00:00 [facility] 350.1.13.10 [place] 4.2.7.2.686 Professio [phone] [address] 2019-10-30 2019-10-30 Orders Doctor NATALI 1.2.840.114 [id number] 00:00:00 00:00:00 Only Unassigned, JESSICA 350.1.13.10 [facility] 4.2.7.2.686 [id number] [id number] 2019-10-22 2019-10-22 Telephone Cl [facility] 1.2.840.114 [id number] 00:00:00 00:00:00 [facility] 350.1.13.10 [place] 4.2.7.2.686 Professio [phone] [address] 2019-10-20 2019-10-20 Telephone Cl [facility] 1.2.840.114 [id number] 00:00:00 00:00:00 [facility] 350.1.13.10 [place] 4.2.7.2.686 Professio [phone] [place] [address] [address] 2019-10-15 2019-10-15 [facility] 1.2.840.114 [id number] 00:00:00 00:00:00 [facility] 350.1.13.10 [place] 4.2.7.2.686 Professio [phone] [place] [address] [address] 2019-10-08 2019-10-08 [facility]phone [facility] 1.2.840.114 [id number] 00:00:00 00:00:00 [facility] 350.1.13.10 [place] 4.2.7.2.686 Professio [phone] [place] [address] [address] 2019-08-29 2019-08-29 Office [facility] 1.2.840.114 [id number] 13:02:13 13:12:13 Visit Roberto AMBULATOR 350.1.13.21 P [facility] 0.2.7.2.686 [id number] 300 2019-04-29 2019-04-29 Office Jeff BC 1.2.223.898 [id number] 10:53:12 12:18:36 Visit Kt AMBULATOR 350.1.13.21 Rasheed Kermit Y 0.2.7.2.686 Lola [phone] [id number] Results This patient has no known results.
[2021-01-02 07:38] LABS: Urine Blood Trace-intact (Negative); Urine Glucose Negative (Negative); Urine Protein Negative (Negative); Urine Specific Gravity 1.015 (1.005-1.030); Urine pH 6.5 (5.0-7.0)
[2021-01-02 08:02] LABS: Urine Bacteria 20-50 /HPF (<20); Urine RBC <5 /HPF (NONE SEEN)
--- NOTE | 2021-01-02 08:10 | EDPHYS ---
Physician Documentation [facility] Name: Shari Estrella Age: 30 yrs Sex: Female : 1990 Arrival Date: 01/02/2021 Time: 06:05 Bed 17 Private MD: ED Physician Joel Ariza HPI: 01/02 06:39 This 30 yrs old Female presents to ER via Unassigned with complaints of fever ira , dysuria , hx esbl. 06:39 The patient presents with flank pain, urinary symptoms, dysuria, frequency, hematuria, ira hesitancy, urgency. Onset: The symptoms/episode began/occurred 3 day(s) ago. Modifying factors: The symptoms are alleviated by nothing, the symptoms are aggravated by nothing. Associated signs and symptoms: The patient has no apparent associated signs or symptoms. Severity of symptoms: At their worst the symptoms were moderate, in the emergency department the symptoms are unchanged. spina bifida hx. The patient reports fever, that was measured at 101 degrees Fahrenheit. 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 - Social history:: Smoking status: unknown Patient/guardian denies using alcohol, street drugs, tobacco products. - Family history:: not pertinent. ROS: 06:39 Eyes: Negative for injury, pain, redness, and discharge, ENT: Negative for injury, ira pain, and discharge, Neck: Negative for injury, pain, and swelling, Cardiovascular: Negative for chest pain, palpitations, and edema, Respiratory: Negative for shortness of breath, cough, wheezing, and pleuritic chest pain, Back: Negative for injury and pain, MS/Extremity: Negative for injury and deformity, Skin: Negative for injury, rash, and discoloration, Neuro: Negative for headache, weakness, numbness, tingling, and seizure, Psych: Negative for depression, anxiety, suicide ideation, homicidal ideation, and hallucinations, Allergy/Immunology: Negative for hives, rash, and allergies, Endocrine: Negative for neck swelling, polydipsia, polyuria, polyphagia, and marked weight changes, Hematologic/Lymphatic: Negative for swollen nodes, abnormal bleeding, and unusual bruising. 06:39 Constitutional: Positive for body aches, chills. 06:39 Cardiovascular: Positive for chest pain. 06:39 Respiratory: Positive for cough. 06:39 Back: Positive for flank pain, bilaterally. Exam: 06:39 Head/Face: Normocephalic, atraumatic. Eyes: Pupils equal round and reactive to light, ira extra-ocular motions intact. Lids and lashes normal. Conjunctiva and sclera are non-icteric and not injected. Cornea within normal limits. Periorbital areas with no swelling, redness, or edema. ENT: Nares patent. No nasal discharge, no septal abnormalities noted. Tympanic membranes are normal and external auditory canals are clear. Oropharynx with no redness, swelling, or masses, exudates, or evidence of obstruction, uvula midline. Mucous membranes moist. Neck: Trachea midline, no thyromegaly or masses palpated, and no cervical lymphadenopathy. Supple, full range of motion without nuchal rigidity, or vertebral point tenderness. No Meningismus. Chest/axilla: Normal chest wall appearance and motion. Nontender with no deformity. No lesions are appreciated. Cardiovascular: Regular rate and rhythm with a normal S1 and S2. No gallops, murmurs, or rubs. Normal PMI, no JVD. No pulse deficits. Respiratory: Lungs have equal breath sounds bilaterally, clear to auscultation and percussion. No rales, rhonchi or wheezes noted. No increased work of breathing, no retractions or nasal flaring. Abdomen/GI: Soft, non-tender, with normal bowel sounds. No distension or tympany. No guarding or rebound. No evidence of tenderness throughout. Skin: Warm, dry with normal turgor. Normal color with no rashes, no lesions, and no evidence of cellulitis. MS/ Extremity: Pulses equal, no cyanosis. Neurovascular intact. Full, normal range of motion. Neuro: Awake and alert, GCS 15, oriented to person, place, time, and situation. Cranial nerves II-XII grossly intact. Motor strength 5/5 in all extremities. Sensory grossly intact. Cerebellar exam normal. Normal gait. Psych: Awake, alert, with orientation to person, place and time. Behavior, mood, and affect are within normal limits. 06:39 Constitutional: The patient appears febrile. 06:39 Back: pain, that is mild, of the left mid back and right mid back. 12:00 ECG was reviewed by the Attending Physician. [facility] Vital Signs: 06:10 BP 139 / 99; Pulse 90; Resp 18; Temp 99.9(O); Pulse Ox 98% on R/A; Pain 9/10; fu 07:23 Weight 34.02 kg; rr5 08:00 BP 121 / 74; Pulse 78; Resp 16; Pulse Ox 100% ; rb3 09:00 BP 126 / 91; Pulse 74; Resp 17; Pulse Ox 100% ; rb3 10:07 BP 126 / 91 LA Sitting (auto/pedi); Pulse 74; Pulse Ox 100% on R/A; mb4 11:00 BP 118 / 80; Pulse 70; Resp 17; Pulse Ox 97% ; rb3 12:27 BP 118 / 81 RA Sitting (auto/reg); Pulse 72; Pulse Ox 99% on R/A; mb4 12:40 BP 118 / 81; Pulse 66; Resp 16; Pulse Ox 96% ; rb3 13:30 BP 125 / 90; Pulse 77; Resp 17; Pulse Ox 99% ; rb3 MDM: 06:27 Patient medically screened. ira 06:42 Differential diagnosis: kidney stone, URI, bronchitis, pneumonia UTI, urinary tract ira infection. Differential Diagnosis sepsis. Data reviewed: vital signs, nurses notes, lab test result(s), radiologic studies, plain films. 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 Test interpretation: by ED physician or midlevel provider: plain radiologic studies. Counseling: I had a detailed discussion with the patient and/or guardian regarding: the historical points, exam findings, and any diagnostic results supporting the discharge/admit diagnosis, lab results, radiology results. 01/02 06:37 Order name: CBC with Diff [facility] 01/02 06:37 Order name: Comprehensive Metabolic Panel [facility] 01/02 06:37 Order name: Urine Culture [facility] 01/02 06:37 Order name: Blood Culture Adult (2) [facility] 01/02 06:37 Order name: Lactate [facility] 01/02 06:37 Order name: Lipase [facility] 01/02 06:37 Order name: Chest Single View XRAY; Complete Time: 09:49 [facility] 01/02 07:38 Order name: Urine Microscopic Only; Complete Time: 08:07 01/02 07:38 Order name: Urine Dipstick-Ancillary; Complete Time: 07:44 [facility] 01/02 07:41 Order name: SARS-COV-2 RT PCR; Complete Time: 07:44 EDNE 01/02 08:17 Order name: Urine --Ancillary (enter results) 01/02 09:45 Order name: C-Reactive Protein [facility] 01/02 09:45 Order name: Procalcitonin [facility] 01/02 06:37 Order name: Urine Dipstick-Ancillary (obtain specimen); Complete Time: 07:41 [facility] 01/02 06:44 Order name: Urine Test (obtain specimen); Complete Time: 07:38 [facility] 01/02 06:44 Order name: EKG; Complete Time: 06:44 [facility] 01/02 06:44 Order name: EKG - Nurse/Tech; Complete Time: 12:29 [facility] 01/02 07:45 Order name: CT Stone Protocol; Complete Time: 09:49 [facility] EC:00 Rate is 66 beats/min. Rhythm is regular. QRS Mcbee is Normal. WI interval is normal. QRS ira interval is normal. QT interval is normal. No Q waves. T waves are Inverted. No ST changes noted. Clinical impression: Abnormal EKG without significant change and No evidence of ischemia. Interpreted by me. Reviewed by me. Administered Medications: 07:50 Drug: NS 0.9% (30 ml/kg) 30 ml/kg Route: IV; Rate: bolus; Site: Port-a-cath; rb3 07:50 Drug: Meropenem 1 grams Route: IV; Rate: per protocol; Site: Port-a-cath; rb3 10:20 Drug: morphine 2 mg Route: IVP; Site: Port-a-cath; rb3 10:33 Not Given (Patient Refused): Tylenol Liquid 15 mg/kg PO once; not to exceed 1000 mg rb3 10:34 CANCELLED (wrong order): morphine 2 mg IVP once; (PAIN>8) RASS on ADMN: Combtv4, Very rb3 Agttd3, Agttd2, Rstlss1, AlertClm0, Drwsy-1, LtSdtn-2, ModSdtn-3, DpSdtn-4, UnArsble-5 x2 Disposition: 01/02/21 08:10 Hospitalization ordered by Roberto Jain for Inpatient Admission. Preliminary diagnosis are Spina bifida, unspecified, Urinary tract infection, site not specified, Acute tubulo-interstitial nephritis, Fever, unspecified, Extended spectrum beta lactamase (ESBL) resistance. - Bed requested for Telemetry/MedSurg (Inpatient). - Status is Inpatient Admission. rb3 - Condition is Fair. - Problem is new. - Symptoms have improved. Signatures: Dispatcher [employer] EDMS Joel Ariza MD MD cha Aguilar, Jose, RN RN ja1 Roberto Zaldivar, RN RN rr5 Pepper Zuluaga RN RN rb3 Corrections: (The following items were deleted from the chart) 07:01 06:39 CORONAVIRUS+MR.LAB.BRZ ordered. [facility] 10:34 10:34 morphine 2 mg IVP once; (PAIN>8) RASS on ADMN: Combtv4, Very Agttd3, Agttd2, rb3 Rstlss1, AlertClm0, Drwsy-1, LtSdtn-2, ModSdtn-3, DpSdtn-4, UnArsble-5 x2 ordered. rb3 11:59 08:10 Hospitalization Ordered by Roberto Jain MD for Inpatient Admission. Preliminary [facility] diagnosis is Spina bifida, unspecified; Urinary tract infection, site not specified; Acute tubulo-interstitial nephritis; Fever, unspecified; Extended spectrum beta lactamase (ESBL) resistance. Bed requested for Telemetry/MedSurg (Inpatient). Status is Inpatient Admission. Condition is Fair. Problem is new. Symptoms have improved. ira 12:27 11:59 01/02/2021 08:10 Hospitalization Ordered by Roberto Jain MD for Inpatient [facility] Admission. Preliminary diagnosis is Spina bifida, unspecified; Urinary tract infection, site not specified; Acute tubulo-interstitial nephritis; Fever, unspecified; Extended spectrum beta lactamase (ESBL) resistance. Bed requested for Telemetry/MedSurg (Inpatient). Status is Inpatient Admission. Condition is Fair. Problem is new. Symptoms have improved. ja1 13:41 12:27 01/02/2021 08:10 Hospitalization Ordered by Roberto Jain MD for Inpatient rb3 Admission. Preliminary diagnosis is Spina bifida, unspecified; Urinary tract infection, site not specified; Acute tubulo-interstitial nephritis; Fever, unspecified; Extended spectrum beta lactamase (ESBL) resistance. Bed requested for Telemetry/MedSurg (Inpatient). Status is Inpatient Admission. Condition is Fair. Problem is new. Symptoms have improved. ja1
--- NOTE | 2021-01-02 08:10 | ER ---
Nurse's Notes [facility] Name: Shari Estrella Age: 30 yrs Sex: Female : 1990 Arrival Date: 01/02/2021 Time: 06:05 Bed 17 Private MD: Diagnosis: Spina bifida, unspecified;Urinary tract infection, site not specified;Acute tubulo-interstitial nephritis;Fever, unspecified;Extended spectrum beta lactamase (ESBL) resistance Presentation: 01/02 06:50 Chief complaint: EMS states: complaining of mid back pain, UTI , N/V for 2 Days. 3-4 rr5 weeks ago came with the same complaint. 06:50 Coronavirus screen: Client denies travel out of the [place] in the last 14 days. At this rr5 time, the client does not indicate any symptoms associated with coronavirus-19. Ebola Screen: Patient negative for fever greater than or equal to 101.5 degrees Fahrenheit, and additional compatible Ebola Virus Disease symptoms Patient denies exposure to infectious person. Patient denies travel to an Ebola-affected area in the 21 days before illness onset. Initial Sepsis Screen: Does the patient meet any 2 criteria? No. Patient's initial sepsis screen is negative. Does the patient have a suspected source of infection? No. Patient's initial sepsis screen is negative. Risk Assessment: Do you want to hurt yourself or someone else? Patient reports no desire to harm self or others. Onset of symptoms was December 31, 2020. 06:50 Method Of Arrival: EMS: [facility] rr5 06:50 Acuity: SAMAN 3 rr5 PAIN MANAGEMENT PHYSICIAN: 07:22 LMP N/A - control method rr5 Historical: - Allergies: 06:55 Sulfa (Sulfonamide Antibiotics); rr5 06:55 Latex, Natural Rubber; rr5 06:55 Toradol; rr5 - Home Meds: 06:55 Atenolol Oral [Active]; Oxycodone HCl Oral [Active]; rr5 - PMHx: 06:55 spina bifida; Hypertension; rr5 - Immunization history:: Adult Immunizations up to date. - Social history:: Smoking status: unknown Patient/guardian denies using alcohol, street drugs, tobacco products. - Family history:: not pertinent. Screenin:00 Abuse screen: Denies threats or abuse. Nutritional screening: No deficits noted. rb3 Tuberculosis screening: No symptoms or risk factors identified. Fall Risk No fall in past 12 months (0 pts). Secondary diagnosis (15 points) impaired mobility, IV access (20 points). Ambulatory Aid- None/Bed Rest/Nurse Assist (0 pts). Gait- Impaired (20 pts.). Mental Status- Oriented to own ability (0 pts). Total Aburto Fall Scale indicates High Risk Score (45 or more points). Fall prevention measures have been instituted. Side Rails Up X 2 Placed Close to Nursing Station 1:1 Attendant Assigned Frequent Obs/Assessments Occuring As available patient and family educated on Fall Prevention Program and Strategies. Assessment: 07:00 General: Appears in no apparent distress. Behavior is calm, cooperative. Pain: rb3 Complains of pain in right mid back and left mid back Pain currently is 7 out of 10 on a pain scale. Neuro: Level of Consciousness is awake, alert, obeys commands, Oriented to person, place, time, situation. Cardiovascular: Patient's skin is warm and dry. Respiratory: Airway is patent Respiratory effort is even, unlabored, Respiratory pattern is regular, symmetrical. GI: Reports nausea, vomiting, since x 2 days. : Self caths. 08:00 Reassessment: Patient appears in no apparent distress at this time. Patient and/or rb3 family updated on plan of care and expected duration. Pain level reassessed. Patient is alert, oriented x 3, equal unlabored respirations, skin warm/dry/pink. 09:00 Reassessment: Patient appears in no apparent distress at this time. No changes from rb3 previously documented assessment. 09:37 Reassessment: Lab is at the bedside. rb3 10:00 Reassessment: Patient appears in no apparent distress at this time. Pt. is playing on rb3 her phone. 11:00 Reassessment: Patient appears in no apparent distress at this time. Patient and/or rb3 family updated on plan of care and expected duration. Pain level reassessed. Patient is alert, oriented x 3, equal unlabored respirations, skin warm/dry/pink. 12:00 Reassessment: Patient appears in no apparent distress at this time. Pt. is watching TV. rb3 12:32 Reassessment: Gave report to CHATA Dumas. Information from the SBAR was given. All rb3 questions asked and answered. 13:00 Reassessment: Patient appears in no apparent distress at this time. Patient and/or rb3 family updated on plan of care and expected duration. Pain level reassessed. Patient is alert, oriented x 3, equal unlabored respirations, skin warm/dry/pink. 13:00 Reassessment: Transfer to floor is pending, awaiting for someone to be available to 3 transport the pt. Vital Signs: 06:10 BP 139 / 99; Pulse 90; Resp 18; Temp 99.9(O); Pulse Ox 98% on R/A; Pain 9/10; fu 07:23 Weight 34.02 kg; rr5 08:00 BP 121 / 74; Pulse 78; Resp 16; Pulse Ox 100% ; rb3 09:00 BP 126 / 91; Pulse 74; Resp 17; Pulse Ox 100% ; rb3 10:07 BP 126 / 91 LA Sitting (auto/pedi); Pulse 74; Pulse Ox 100% on R/A; mb4 11:00 BP 118 / 80; Pulse 70; Resp 17; Pulse Ox 97% ; rb3 12:27 BP 118 / 81 RA Sitting (auto/reg); Pulse 72; Pulse Ox 99% on R/A; mb4 12:40 BP 118 / 81; Pulse 66; Resp 16; Pulse Ox 96% ; rb3 13:30 BP 125 / 90; Pulse 77; Resp 17; Pulse Ox 99% ; rb3 ED Course: 06:05 Patient arrived in ED. iw 06:27 Joel Ariza MD is Attending Physician. ira 06:55 Arm band placed on right wrist. rr5 07:00 Patient has correct armband on for positive identification. Bed in low position. Call rb3 light in reach. Side rails up X 1. Pulse ox on. NIBP on. Warm blanket given. Pillow given. 07:17 Triage completed. rr5 07:27 Chest Single View XRAY In Process Unspecified. EDMS 07:32 Accessed Missed attempt to access pt port.. rb3 07:38 Pepper Zuluaga RN is Primary Nurse. rb3 07:45 Accessed Port-a-Cath. Inserted by CHATA Patrick. rb3 08:08 Roberto Jain MD is Hospitalizing Provider. ira 09:14 CT Stone Protocol In Process Unspecified. EDNH 11:45 EKG done, by ED staff, reviewed by Joel Ariza MD. mb4 13:32 No provider procedures requiring assistance completed. Patient admitted, IV remains in rb3 place. Administered Medications: 07:50 Drug: NS 0.9% (30 ml/kg) 30 ml/kg Route: IV; Rate: bolus; Site: Port-a-cath; rb3 07:50 Drug: Meropenem 1 grams Route: IV; Rate: per protocol; Site: Port-a-cath; rb3 10:20 Drug: morphine 2 mg Route: IVP; Site: Port-a-cath; rb3 10:33 Not Given (Patient Refused): Tylenol Liquid 15 mg/kg PO once; not to exceed 1000 mg rb3 10:34 CANCELLED (wrong order): morphine 2 mg IVP once; (PAIN>8) RASS on ADMN: Combtv4, Very rb3 Agttd3, Agttd2, Rstlss1, AlertClm0, Drwsy-1, LtSdtn-2, ModSdtn-3, DpSdtn-4, UnArsble-5 x2 Outcome: 08:10 Decision to Hospitalize by Provider. ira 13:32 Patient left the ED. rb3 13:32 Admitted to Med/surg accompanied by tech, via stretcher, room 218, with chart, Report rb3 called to CHATA Dumas 13:32 Condition: stable 13:32 Instructed on the need for admit. Signatures: Dispatcher [employer] EDNH Joel Ariza MD MD cha Williams, Irene RN Everardo Benoit RN RN fu Baxter, Mackenzie mb4 Roberto Zaldivar RN RN rr5 Pepper Zuluaga RN RN rb3 Corrections: (The following items were deleted from the chart) 13:46 13:41 Patient left the ED. rb3 rb3
[2021-01-02] MEDS ORDERED: DERMABOND SKIN ADHESIVE TOP ONE (08:25)
[2021-01-02] MEDS ORDERED: ACETAMINOPHEN 160 MG/5 ML UCUP ONE (08:36)
[2021-01-02] MEDS ORDERED: Meropenem 1 GM/100 ML BAG ONE ×2 (08:37→08:38)
[2021-01-02] MEDS ORDERED: NA CHLORIDE 0.9% 1,000 ML ONE (08:37)
[2021-01-02] MEDS ORDERED: MORPHINE 2 MG/ML SYR ONE ×3 (08:51→12:44)
--- NOTE | 2021-01-02 09:15 | RAD REPORT ---
EXAM DESCRIPTION: RAD - Chest Single View - 01/02/2021 7:27 am CLINICAL HISTORY: COUGH COMPARISON: Portable October 07 TECHNIQUE: AP portable chest image was obtained 01/02/2021 7:27 am . FINDINGS: Lung volumes are very low compared to what is traditionally a low lung volume patient. No peripheral mass or consolidation discernible. Heart size and mediastinum are not clearly different fr om comparison. No measurable pleural effusion and no pneumothorax. No acute bone findings seen. Gross deformity of the spine again noted. Left subclavian Port-A-Cath is in place. Multiple pieces of shun t tubing overlies the right chest. No acute aortic findings suspected. IMPRESSION: Limited examination without acute cardiopulmonary finding.
--- NOTE | 2021-01-02 09:33 | RAD REPORT ---
EXAM DESCRIPTION: CT - Stone Protocol - 01/02/2021 9:14 am CLINICAL HISTORY: Abd pain;Flank pain COMPARISON: Stone Protocol dated 09/03/2020 TECHNIQUE: Axial [address] imaging of the abdomen and pelvis was performed without IV contrast. No IV contrast was given because of allergy, abnormal renal function, patient refusal or physician re quest. No oral contrast administered. All CT scans are performed using dose optimization technique as appropriate and may include automated exposure control or mA/KV adjustment according to patient size. FINDINGS: No suspicious findings in the lung bases. No cardiomegaly or pericardial effusion. Left moreira bclavian central line is present partially imaged. CASTING ROOM HELPER shunt tubing is in place. The liver, spleen and pancreas show no suspicious findings on non-contrast imaging. At least 1 medium -sized gallstone is present matching comparison. No acute gallbladder or biliary tree finding suspect ed. No hydronephrosis or suspicious renal mass. A 4-5 mm sized calcification is present in the lower pole left kidney similar to August study. Punctate sub centimeter size calyx or pyramid calculi noted on the right. The small right-side stone seen on the August study may have passed. No bladder or urete ral calculi seen. No significant adrenal finding. Isodense renal masses and pyelonephritis cannot be excluded in the absence of IV contrast. Partially filled urinary bladder shows a slightly thickened l ateral wall. This is similar to prior imaging. This may be chronic for the patient. Cystitis cannot b e excluded and can be correlated with any UA acute abnormality. No dilated bowel loops or bowel wall thickening. No dilated small bowel. Moderately large stool volum e is present filling but not dilating the entirety of the colon. Ostomy site is present in the lower right abdomen. This may communicate to the right lateral margin of the bladder and is therefore a uri ne diverting ostomy. A small bowel surgical anastomotic site is present. No free air, free fluid or i nflammatory stranding. No hernia, mass or bulky lymphadenopathy. No suspicious bony findings. IMPRESSION: Noncontrast CT abdomen and pelvis imaging shows no acute or emergent finding. Patient has what appears to be chronic urinary bladder wall thickening. Correlation can be made with any acute UA abnormalities to exclude cystitis. calculi are present as detailed but no obstruction or hydronephrosis seen. Full assessment is limited is the absence of IV contrast.
--- NOTE | 2021-01-02 10:04 | P.HP ---
Certification for Inpatient Patient admitted to: Inpatient With expected LOS: >2 Midnights Practitioner: I am a practitioner with admitting privileges, knowledge of patient current condition, hospital course, and medical plan of care. Services: Services provided to patient in accordance with Admission requirements found in Title 42 Section 412.3 of the Code of Federal Regulations Patient History Date of Service: 01/02/21 Reason for admission: UTI, h/o ESBL History of Present Illness: 22-year-old female, PMH: Spina bifida, hypertension, chronic pain, frequent UTIs, presents to the ED due to End 2-3 days of on going back pain, nausea, and 1 episode of emesis today. She also endorses and temperatures ranging from 99- 101 at home. In the ED, she was found to have a urinary tract infection. Patient was recently discharged ~ 3 weeks ago for a similar issue. She has a history of multiple ESBL UTIs this year She has been taking her meds as prescribed and intermittently straight caths herself q8hr.. She reports otherwise feeling okay, does not appear septic. Labs are pending, nursing staff had difficulty drawing from Port-A-Cath. CXR: No acute process. CT abdomen/pelvis was obtained which showed chronic urinary bladder wall thickening, small left lower renal pole calcification unchanged from August. No bladder or ureteral calculi seen. Vital signs within normal limits and stable in the ER. T-max: 100.3 Admitted for further eval/management. Allergies adhesive tape Allergy (Verified 07/29/19 01:10) Rash Latex, Natural Rubber Allergy (Verified 07/29/19 01:10) Rash Sulfa (Sulfonamide Antibiotics) Allergy (Verified 07/29/19 01:10) Hives/Rash sulfamethoxazole [From Bactrim] Allergy (Verified 07/29/19 01:10) Hives trimethoprim [From Bactrim] Allergy (Verified 07/29/19 01:10) Hives vancomycin Allergy (Verified 07/29/19 01:10) Hives/Rash Adhesives Allergy (Uncoded 07/08/17 16:36) Unknown Home Medications: Atenolol [Tenormin] 100 mg PO DAILY 02/17/20 Diphenhydramine [Benadryl*] 50 mg PO BEDTIME PRN PRN 02/17/20 Oxycodone HCl/Acetaminophen [Oxycodone-Acetaminophen 10-325] 1 each PO Q6HP PRN 02/17/20 Lidocaine 30 gm TP BID PRN #1 cream..g. 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 SEMICONDUCTOR DEVELOPMENT shunt Psychosocial/ Personal History: Patient lives at home - Family History Mother -: Hypertension, Diabetes, Other (see notes) Notes: Lupus Father -: Hypertension, Diabetes Notes: Hyperlipidemia - Social History Smoking Status: Never smoker Alcohol use: No CD- Drugs: No Caffeine use: Yes Place of Residence: Home Review of Systems 10-point ROS is otherwise unremarkable Physical Examination - Physical Exam General: Alert, In no apparent distress, Oriented x3 HEENT: Normocephalic, Sclerae nonicteric Neck: Supple Respiratory: Clear to auscultation bilaterally, Normal air movement Cardiovascular: Edema (trace b/l pedal edema) Gastrointestinal: Soft and benign, Non-distended, No tenderness Musculoskeletal: Tenderness (+b/l CVA tenderness), Other (+spina bifida) Neurological: Normal speech, Normal affect, Abnormal sensation (no sensation in lower legs) Assessment and Plan - Advance Directives Does patient have a Living Will: No Does patient have a Durable POA for Healthcare: No Physician Review Additional Text: Problem List UTI, suspect acute pyelonephritis Dehydration h/o ESBL UTI Hypertension Spina Bifida h/o TECHNICIAN SEMICONDUCTOR DEVELOPMENT shunt -Has significant history of multiple UTIs, with the sp L -cover with meropenem for now, await urine/blood cultures -will consult infectious disease tomorrow -Gentle IV fluid hydration. -Trending inflammatory markers -Pain control -Continue home medications VTE: lovenox Code: full Dispo: anticipate dc home, will likely need IV antibiotics on discharge. Time Spent Managing Pts Care (In Minutes): 60
[2021-01-02 10:08] LABS: Absolute Lymphocytes (CBC) 1.4 K/uL (0.7-4.9); Basophils % 0.4 % (0-1.3); Hematocrit 31.5 % (36.0-45.0); Lymphocytes % 12.2 % (15.3-44.8); MPV 7.4 fL (7.6-11.3); RBC Red Blood Cell Count 3.53 M/uL (3.86-4.86)
[2021-01-02 10:29] LABS: ALT/SGPT 12 U/L (12-78); AST/SGOT 9 U/L (15-37); Alkaline Phosphatase 157 U/L (45-117); BUN Blood Urea Nitrogen 5 mg/dL (7-18); Bicarbonate 27 mmol/L (21-32); Bilirubin Total 0.4 mg/dL (0.2-1.0); Glucose Level 102 mg/dL (74-106); Lipase 31 U/L (73-393); Potassium 3.7 mmol/L (3.5-5.1); Protein, Total 8.1 g/dL (6.4-8.2); Sodium Level 138 mmol/L (136-145)
[2021-01-02] MEDS: MORPHINE 2 MG/ML SYR IV PRN ×3 (12:28→20:15)
[2021-01-02] MEDS ORDERED: ACETAMINOPHEN 500 MG TAB PO PRN (12:42)
[2021-01-02 13:26] LABS: Urine Specific Gravity/Preg 1.015 (1.005-1.030)
[2021-01-02 14:05] VITALS: BMI 32.3
[2021-01-02] MEDS: ENOXAPARIN 40 MG/0.4 ML SQ SCH (14:38)
[2021-01-02] MEDS: NA CHLORIDE 0.9% 1,000 ML IV SCH (14:38)
--- NOTE | 2021-01-02 14:47 | P.INFCA ---
Sepsis Focused Assessment - Focused Assessment Complete? Sepsis Focused Assessment Completed?: Yes - Sepsis Screen Result Severe Sepsis: Negative Septic Shock: Negative - Evaluation Current stage of sepsis: Ruled out Reason for ruling out sepsis: improved - Vital Signs Reviewed: Yes Temperature: 98.6 F Heart rate: 54 Blood Pressure: 129/67 Respiratory Rate: 16 O2 Sat by Pulse Oximetry: 100 - Examination Date exam was performed: 01/02/21 Time exam was performed: 10:30 Heart: Regular rate/rhythm Lungs: Clear bilaterally Peripheral pulses: 3+ Normal Peripheral pulse location: Radial Capillary refill: <2 Seconds Skin examination: Normal turgor
[2021-01-02] MEDS: Meropenem 500 MG in NA CHLORIDE 0.9% 100 ML IV SCH (16:33)
[2021-01-02] MEDS ORDERED: Meropenem 500 MG VIAL IV SCH (17:00)
[2021-01-02] MEDS: DIPHENHYDRAMINE 25 MG TAB/CAP PO PRN (22:50)
[2021-01-02] MEDS: HYDROCODONE/APAP 10/325 TAB PO PRN (22:50)
[2021-01-03] MEDS: Meropenem 500 MG in NA CHLORIDE 0.9% 100 ML IV SCH ×3 (00:59→16:26)
[2021-01-03] MEDS: NA CHLORIDE 0.9% 1,000 ML IV SCH (04:15)
[2021-01-03] MEDS: HYDROCODONE/APAP 10/325 TAB PO PRN ×4 (05:20→22:22)
[2021-01-03 05:44] LABS: ALT/SGPT 10 U/L (12-78); AST/SGOT 9 U/L (15-37); Albumin 2.4 g/dL (3.4-5.0); Alkaline Phosphatase 116 U/L (45-117); BUN Blood Urea Nitrogen 4 mg/dL (7-18); Bicarbonate 23 mmol/L (21-32); Bilirubin Total 0.3 mg/dL (0.2-1.0); Glucose Level 90 mg/dL (74-106); Magnesium 2.1 mg/dL (1.8-2.4); Potassium 3.3 mmol/L (3.5-5.1); Protein, Total 6.3 g/dL (6.4-8.2); Sodium Level 141 mmol/L (136-145)
[2021-01-03 05:46] LABS: Absolute Lymphocytes (CBC) 2.2 K/uL (0.7-4.9); Basophils % 0.7 % (0-1.3); Hematocrit 30.1 % (36.0-45.0); Lymphocytes % 33.2 % (15.3-44.8); MPV 7.7 fL (7.6-11.3); RBC Red Blood Cell Count 3.27 M/uL (3.86-4.86)
[2021-01-03] MEDS ORDERED: POTASSIUM CL SA 10 MEQ TAB PO ONE (08:00)
[2021-01-03] MEDS: atenoloL 50 MG TAB PO SCH (08:48)
[2021-01-03] MEDS: ENOXAPARIN 40 MG/0.4 ML SQ SCH (08:49)
--- NOTE | 2021-01-03 12:42 | CON ---
History Of Present Illness: This is a known patient to me from previous admission, coming in with ur inary tract infection. Feeling much better after IV antibiotic. Also had some nausea and vomiting w ith fever. The patient has a left chest port in place where the patient is getting her IV antibiotic . She has significant past medical history of spina bifida, hypertension, chronic pain, wounds to th e buttocks and coccyx because of prolonged sitting. The patient gets frequent units tract infections . This time she has ESBL urinary tract infection. She also has multiple allergies. 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 Social History: Nonsmoker, nondrinker. Family History: Noncontributory. Medications: The patient is currently on meropenem. See MAR for other medications. Allergies: INCLUDE SULFA DRUGS, LATEX, ADHESIVE TAPES, VANCOMYCIN. Review of Systems: A 10-point review was performed. Physical Examination: General: The patient is siting in wheelchair, not in any acute cardiopulmonary distress. Vital Signs: Temperature 98.4, pulse 74, respirations 18, blood pressure 112/83. HEENT: Unremarkable. Neck: Supple. Lungs: Basal crackles. Heart: S1, S2. Regular. Abdomen: Soft, nontender. Bowel sounds present. Extremities: No edema. Laboratory Data: Shows WBC 6.5, down from 11.8; hemoglobin 9.7, platelets are 260. Chemistry shows sodium 141, potassium 3.3, chloride 113, bicarb 23, BUN 4, creatinine 0.33, glucose is 90, albumin is 3.4. Abdominal CT scan done yesterday shows the patient has no acute findings in CT scan. Assessment And Plan: This is a 30-year-old female coming in with urinary tract infection. Previous urine cultures showed extended-spectrum beta-lactamase. The patient is to continue meropenem for 7 t o 10 days. Repeat urinalysis after 5 days to evaluate continuation of antibiotic. Continue supporti ve care. Proper hygiene instructions for urinary tract infection. The patient with spina bifida, pr otein calorie malnourishment. Leukocytosis has been improved. Continue supportive care and antibiot ic and we will follow the patient as needed. Thank you Dr. Jain for consult. NF/MODL Voice ID: [id number] Report ID: [id number]
--- NOTE | 2021-01-03 14:41 | P.PN ---
Subjective Date of Service: 01/03/21 Chief Complaint: UTI, h/o ESBL Subjective: No new changes (feels slightly improved, pain still remains, minimal nausea) Review of Systems 10-point ROS is otherwise unremarkable Physical Examination - Vital Signs Temperature: 98.4 F Blood Pressure: 112/83 Pulse: 74 Respirations: 18 Pulse Ox (%): 98 Assessment & Plan Physician Review Additional Text: Physical Exam General: Alert, In no apparent distress, Oriented x3 HEENT: normal conjunctiva, Sclerae nonicteric Respiratory: Clear to auscultation bilaterally, Normal air movement Cardiovascular: trace b/l pedal edema Gastrointestinal: Soft, Non-distended, No tenderness Musculoskeletal: Tenderness (+b/l CVA tenderness), Other (+spina bifida), kyphoscoliosis Neurological: Normal speech, Normal affect, Abnormal sensation (no sensation in b/l legs) Problem List UTI, suspect acute pyelonephritis Dehydration h/o ESBL UTI Hypertension Spina Bifida h/o STEAMBLASTER shunt -Has significant history of multiple UTIs, with ESBL / multi-drug resistance -cover with meropenem for now, await urine/blood cultures - blood negative so far -ID consulted -Gentle IV fluid hydration, dc once tolerating diet -Trending inflammatory markers -Pain control -Continue home medications, PRODUCTION DESIGNER reviewed VTE: lovenox Code: full Dispo: anticipate dc home in 24hrs, awaiting final cultures Time Spent Managing Pts Care (In Minutes): 35
[2021-01-03] MEDS: DIPHENHYDRAMINE 25 MG TAB/CAP PO PRN (22:22)
[2021-01-04] MEDS: Meropenem 500 MG in NA CHLORIDE 0.9% 100 ML IV SCH ×3 (00:55→17:01)
[2021-01-04] MEDS: HYDROCODONE/APAP 10/325 TAB PO PRN ×3 (06:03→20:54)
[2021-01-04 06:09] LABS: Absolute Lymphocytes (CBC) 2.5 K/uL (0.7-4.9); Basophils % 1.1 % (0-1.3); Hematocrit 30.9 % (36.0-45.0); Lymphocytes % 39.3 % (15.3-44.8); MPV 7.3 fL (7.6-11.3); RBC Red Blood Cell Count 3.41 M/uL (3.86-4.86)
[2021-01-04 06:18] LABS: BUN Blood Urea Nitrogen 2 mg/dL (7-18); Bicarbonate 27 mmol/L (21-32); Glucose Level 92 mg/dL (74-106); Magnesium 2.1 mg/dL (1.8-2.4); Sodium Level 142 mmol/L (136-145)
[2021-01-04] MEDS: ENOXAPARIN 40 MG/0.4 ML SQ SCH (09:00)
[2021-01-04] MEDS: atenoloL 50 MG TAB PO SCH (09:24)
[2021-01-04] MEDS: MORPHINE 2 MG/ML SYR IV PRN ×2 (09:28→17:03)
--- NOTE | 2021-01-04 11:55 | P.PN ---
Subjective Date of Service: 01/04/21 Chief Complaint: UTI, h/o ESBL Patient seen and examined at bedside-no acute events are past 24 hr Review of Systems 10-point ROS is otherwise unremarkable Physical Examination - Vital Signs Temperature: 98.3 F Blood Pressure: 118/71 Pulse: 71 Respirations: 18 Pulse Ox (%): 97 - Physical Exam General: Alert, In no apparent distress, Oriented x3 HEENT: Atraumatic, Normocephalic Neck: Supple, 2+ carotid pulse no bruit Respiratory: Clear to auscultation bilaterally, Normal air movement Cardiovascular: No edema, Normal pulses Capillary refill: <2 Seconds Gastrointestinal: Normal bowel sounds, Soft and benign Musculoskeletal: Contractures (T-spine and upper/lower extremities. Patient has spina bifida.) Integumentary: Pressure ulcer (Chronic pressure also to right buttocks) - Studies Temp Pulse Resp BP Pulse Ox 98.3 F 71 18 118/71 97 01/04/21 08:00 01/04/21 09:24 01/04/21 09:58 01/04/21 09:24 01/04/21 09:58 Laboratory Last Values WBC 11.80 K/uL (4.3-10.9) H 01/02/21 09:51 RBC 3.53 M/uL (3.86-4.86) L 01/02/21 09:51 Hgb 10.6 g/dL (12.0-15.0) L 01/02/21 09:51 Hct 31.5 % (36.0-45.0) L 01/02/21 09:51 MCV 89.3 fL (80-100) 01/02/21 09:51 MCH 30.0 pg (27.0-35.0) 01/02/21 09:51 MCHC 33.6 g/dL (32.0-36.0) 01/02/21 09:51 RDW 14.8 % (12.1-15.2) 01/02/21 09:51 Plt Count 426 K/uL (152-406) H 01/02/21 09:51 MPV 7.4 fL (7.6-11.3) L 01/02/21 09:51 Neutrophils % 81.9 % (41.7-73.7) H 01/02/21 09:51 Lymphocytes % 12.2 % (15.3-44.8) L 01/02/21 09:51 Monocytes % 5.0 % (3.3-12.3) 01/02/21 09:51 Eosinophils % 0.5 % (0-4.4) 01/02/21 09:51 Basophils % 0.4 % (0-1.3) 01/02/21 09:51 Absolute Neutrophils 9.6 K/uL (1.8-8.0) H 01/02/21 09:51 Absolute Lymphocytes 1.4 K/uL (0.7-4.9) 01/02/21 09:51 Absolute Monocytes 0.6 K/uL (0.1-1.3) 01/02/21 09:51 Absolute Eosinophils 0.1 K/uL (0-0.5) 01/02/21 09:51 Absolute Basophils 0.0 K/uL (0-0.5) 01/02/21 09:51 Sodium 138 mmol/L (136-145) 01/02/21 09:51 Potassium 3.7 mmol/L (3.5-5.1) 01/02/21 09:51 Chloride 103 mmol/L (98-107) 01/02/21 09:51 Carbon Dioxide 27 mmol/L (21-32) 01/02/21 09:51 BUN 5 mg/dL (7-18) L 01/02/21 09:51 Creatinine 0.29 mg/dL (0.55-1.3) L 01/02/21 09:51 Estimated GFR > 90 mL/min (=/>90) 01/02/21 09:51 Glucose 102 mg/dL (74-106) 01/02/21 09:51 Lactic Acid 1.2 mmol/L (0.4-2.0) 01/02/21 09:51 Calcium 9.4 mg/dL (8.5-10.1) 01/02/21 09:51 Total Bilirubin 0.4 mg/dL (0.2-1.0) 01/02/21 09:51 AST 9 U/L (15-37) L 01/02/21 09:51 ALT 12 U/L (12-78) 01/02/21 09:51 Alkaline Phosphatase 157 U/L (45-117) H 01/02/21 09:51 C-Reactive Protein 187.00 mg/L (<3.00) H 01/02/21 09:51 Serum Total Protein 8.1 g/dL (6.4-8.2) 01/02/21 09:51 Albumin 3.0 g/dL (3.4-5.0) L 01/02/21 09:51 Globulin 5.1 g/dL (2.3-3.5) H 01/02/21 09:51 Albumin/Globulin Ratio 0.6 (1.1-1.8) L 01/02/21 09:51 Lipase 31 U/L (73-393) L 01/02/21 09:51 Procalcitonin 0.05 ng/mL (<0.050) 01/02/21 09:51 Urine pH 6.5 (5.0-7.0) 01/02/21 07:36 Ur Specific Victor 1.015 (1.005-1.030) 01/02/21 07:36 Glucose (UA)(Auto) Negative (Negative) 01/02/21 07:36 Urine Ketones Negative (Negative) 01/02/21 07:36 Urine Blood Trace-intact (Negative) H 01/02/21 07:36 Urine Nitrite Negative (Negative) 01/02/21 07:36 Ur Leukocyte Esterase Trace (Negative) H 01/02/21 07:36 Urine RBC <5 /HPF (NONE SEEN) 01/02/21 07:35 Urine WBC 5-10 /HPF (<5) H 01/02/21 07:35 Ur Squamous Epith Cells <5 /HPF (NONE SEEN) 01/02/21 07:35 Urine Bacteria 20-50 /HPF (<20) H 01/02/21 07:35 Urine Culture Reflexed Not needed 01/02/21 07:35 Urine Total Protein Negative (Negative) 01/02/21 07:36 Ur Specific Victor (HCG) 1.015 (1.005-1.030) 01/02/21 08:17 Urine Test Neg (NEG) 01/02/21 08:17 SARS-CoV-2 RNA (RT-PCR) Negative (NEGATIVE) 01/02/21 06:49 Assessment And Plan - Plan Antibiotics: merum start: 01/02 stop: 01/16 Assessment: -urinary tract infection -history of ESBL and UTIs -right buttocks decubitus chronic wound -protein caloric malnutrition -anemia -spina bifida plan: -urine cultures taken on 01/02 grew Pseudomonas. Continue meropenem for total antibiotic duration of 2 weeks given patient's history of ESBL UTIs. ESBL Pseudomonas not noted on urinary culture however it is multi-drug resistant. -wound cultures of right buttocks wound pending. Continue current wound care treatment. -recommend supplemental Ensure protein drinks with meals as patient has low albumin at 2.4. -medical management per primary team -continue monitor CBC and BMP -continue monitor signs infection Plan of care discussed with Dr. Ibarra Thank you for consultation
--- NOTE | 2021-01-04 14:00 | P.PN ---
Subjective Date of Service: 01/04/21 Chief Complaint: UTI, h/o ESBL Patient has no complain today. She has been afebrile. Urine culture is growing Pseudomonas. Physical Examination - Vital Signs Temperature: 98.2 F Blood Pressure: 123/75 Pulse: 92 Respirations: 18 Pulse Ox (%): 97 - Physical Exam General: Alert, In no apparent distress, Oriented x3 HEENT: Mucous membr. moist/pink Neck: JVD not distended Respiratory: Clear to auscultation bilaterally, Normal air movement Cardiovascular: No edema, Regular rate/rhythm, Normal S1 S2 Gastrointestinal: Normal bowel sounds, Soft and benign, Non-distended, No tenderness Musculoskeletal: No swelling, Kyphosis Integumentary: Other (Sacral decubitus ulcer.) Neurological: Other (Wheelchair bound) Assessment And Plan Physician Review Additional Text: Physical Exam General: Alert, In no apparent distress, Oriented x3 HEENT: normal conjunctiva, Sclerae nonicteric Respiratory: Clear to auscultation bilaterally, Normal air movement Cardiovascular: trace b/l pedal edema Gastrointestinal: Soft, Non-distended, No tenderness Musculoskeletal: Tenderness (+b/l CVA tenderness), Other (+spina bifida), kyphoscoliosis Neurological: Normal speech, Normal affect, Abnormal sensation (no sensation in b/l legs) Problem List Pseudomonas UTI. 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 -Has significant history of multiple UTIs, with ESBL / multi-drug resistance. -patient has a suprapubic stoma for self-catheterization. -continue IV meropenem. -ID seen and evaluated patient. Patient is slated for 2 weeks of IV meropenem. -patient has a Port-A-Cath for outpatient IV antibiotics. -discontinue IV fluid -Pain control as needed. -Continue home medications. VTE: lovenox Code: full Dispo: anticipate dc home with home health for IV antibiotic.
[2021-01-04] MEDS: DIPHENHYDRAMINE 25 MG TAB/CAP PO PRN (22:34)
[2021-01-05] MEDS: Meropenem 500 MG in NA CHLORIDE 0.9% 100 ML IV SCH ×2 (00:45→10:05)
[2021-01-05] MEDS: HYDROCODONE/APAP 10/325 TAB PO PRN ×2 (05:18→12:12)
[2021-01-05] MEDS: ENOXAPARIN 40 MG/0.4 ML SQ SCH (09:00)
[2021-01-05] MEDS: MORPHINE 2 MG/ML SYR IV PRN ×2 (10:05→15:34)
[2021-01-05] MEDS: atenoloL 50 MG TAB PO SCH (10:06)
[2021-01-05 10:20] VITALS: O2SAT 97
--- NOTE | 2021-01-05 10:22 | P.PN ---
Subjective Date of Service: 01/05/21 Chief Complaint: UTI, h/o ESBL Patient seen and examined at bedside-no acute events are past 24 hr Review of Systems 10-point ROS is otherwise unremarkable Physical Examination - Vital Signs Temperature: 98.3 F Blood Pressure: 118/76 Pulse: 71 Respirations: 18 Pulse Ox (%): 100 - Studies Temp Pulse Resp BP Pulse Ox 98.3 F 71 18 118/76 100 01/05/21 08:00 01/05/21 08:00 01/05/21 10:05 01/05/21 08:00 01/05/21 10:05 Active Medications Acetaminophen (Acetaminophen 500 Mg Tab) 500 mg PO Q4HP PRN PRN Reason: TEMP > 100' F Hydrocodone Bitart/Acetaminophen (Hydrocodone/Apap 10/325 Tab) 1 tab PO Q6H PRN PRN Reason: Pain scale 5-7 (Moderate) Last Admin: 01/05/21 05:18 Dose: 1 tab Documented by: Atenolol (Atenolol 50 Mg Tab) 100 mg PO DAILY [facility] Last Admin: 01/05/21 10:06 Dose: 100 mg Documented by: Diphenhydramine HCl (Diphenhydramine 25 Mg Tab/Cap) 50 mg PO BEDTIME PRN PRN PRN Reason: INSOMNIA Last Admin: 01/04/21 22:34 Dose: 50 mg Documented by: Enoxaparin Sodium (Enoxaparin 40 Mg/0.4 Ml) 40 mg SQ DAILY [facility] Last Admin: 01/05/21 09:00 Dose: 40 mg Documented by: Meropenem 500 mg/ Sodium (Chloride) 100 mls @ 100 mls/hr IV Q8HR [facility] Last Admin: 01/05/21 10:05 Dose: 100 mls Documented by: Morphine Sulfate (Morphine 2 Mg/Ml Syr) 2 mg IV Q4H PRN PRN Reason: Pain scale 5-7 (Moderate) Last Admin: 01/05/21 10:05 Dose: 2 mg Documented by: Sodium Chloride (Flush Normal Saline 10 Ml) 10 ml IV BID [facility] Last Admin: 01/05/21 10:06 Dose: 10 ml Documented by: Assessment And Plan - Plan Physical Exam: General: Moderate distress, Obese HEENT: Atraumatic, Normocephalic Neck: Supple, 2+ carotid pulse no bruit Respiratory: Other (Decreased breath sounds/difficulty ascultating due to body habitus) Cardiovascular: Regular rate/rhythm Gastrointestinal: Distended, Tenderness, Masses (Abdominal wall inflammation with multiple wounds. Wounds draining serous fluid.) Antibiotics: merum start: 01/02 stop: 01/09 Assessment: -urinary tract infection -history of ESBL and UTIs -right buttocks decubitus chronic wound -protein caloric malnutrition -anemia -spina bifida plan: -urine cultures taken on 01/02 grew Pseudomonas. Continue meropenem for total antibiotic duration of 1 weeks given patient's history of ESBL UTIs. ESBL Pseudomonas not noted on urinary culture however it is multi-drug resistant. -wound cultures of right buttocks wound pending. Continue current wound care treatment. -recommend supplemental Ensure protein drinks with meals as patient has low albumin at 2.4. -medical management per primary team -continue monitor CBC and BMP -continue monitor signs infection Plan of care discussed with Dr. Ibarra Thank you for consultation
--- NOTE | 2021-01-05 12:06 | EKG ---
Test Date: 2021-01-02 Test Time: 11:39:51 Parking Enforcement Specialist: JASEN MEASUREMENT RESULTS: Intervals: Rate: 66 NC: 116 QRSD: 78 QT: 420 QTc: 440 [place]: P: 23 NC: 116 QRS: 1 T: 48 INTERPRETIVE STATEMENTS: Normal sinus rhythm with sinus arrhythmia Anterior infarct, age undetermined Abnormal ECG Compared to ECG 02/16/2020 20:50:01 Sinus tachycardia no longer present T-wave abnormality no longer present Possible ischemia no longer present Myocardial infarct finding still present Electronically Signed On 01-05-21 11:55:14 CDT by Donell Murphy
--- NOTE | 2021-01-05 13:06 | P.DS ---
Admission Date: 01/02/21 Discharge Date: 01/05/21 Disposition: OR HOME/HOME HEALTH CARE Discharge Condition: FAIR Reason for Admission: UTI, h/o ESBL Consultations: Infectious Disease - Problems (1) Recurrent UTI Current Visit: Yes Status: Acute (2) Intermittent self-catheterization of bladder Current Visit: Yes Status: Acute (3) Hypertension Onset Date: 06/01/17 Current Visit: No Status: Chronic Qualifiers: (4) Paraplegia Onset Date: 06/01/17 Current Visit: No Status: Chronic (5) Scoliosis Onset Date: 06/01/17 Current Visit: No Status: Chronic Qualifiers: Brief History of Present Illness: 30-year-old woman with a history of scoliosis, spina bifida, paraplegia, recurrent UTI presented to the emergency department with a complaint of back pain, nausea, vomiting and fever. UA done in the emergency department suggested UTI. CT abdomen and pelvis showed no acute pathology. Patient is hospitalized for further management. Hospital Course: Patient admitted to the medical floor and started on IV meropenem based on her history of previous ESBL infections. Urine culture grew ESBL E. coli. Patient seen by infectious disease who recommended 2 weeks of IV Meropenem. Patient's symptoms resolved. She has tolerated her meals and currently has no complain. Patient deemed stable for discharge. She is discharged to complete 2 weeks of IV meropenem via home health. Patient has a Port-A-Cath in place. Vital Signs/Physical Exam: Temp Pulse Resp BP Pulse Ox 98.3 F 71 18 118/76 100 01/05/21 10:23 01/05/21 10:23 01/05/21 12:12 01/05/21 10:01/05/21 12:12 General: Alert, In no apparent distress, Oriented x3 Neck: JVD not distended Respiratory: Clear to auscultation bilaterally, Normal air movement Cardiovascular: No edema, Regular rate/rhythm, Normal S1 S2 Gastrointestinal: Soft and benign, Non-distended, No tenderness Musculoskeletal: No swelling Integumentary: No rashes Neurological: Other (Paraplegia) Laboratory Data at Discharge: WBC 6.40 K/uL (4.3-10.9) 01/04/21 05:23 Hgb 10.2 g/dL (12.0-15.0) L 01/04/21 05:23 Hct 30.9 % (36.0-45.0) L 01/04/21 05:23 Plt Count 401 K/uL (152-406) 01/04/21 05:23 Sodium 142 mmol/L (136-145) 01/04/21 05:33 Potassium 4.0 mmol/L (3.5-5.1) 01/04/21 05:33 BUN 2 mg/dL (7-18) L 01/04/21 05:33 Creatinine 0.24 mg/dL (0.55-1.3) L 01/04/21 05:33 Glucose 92 mg/dL (74-106) 01/04/21 05:33 Magnesium 2.1 mg/dL (1.8-2.4) 01/04/21 05:33 Total Bilirubin 0.3 mg/dL (0.2-1.0) 01/03/21 05:16 AST 9 U/L (15-37) L 01/03/21 05:16 ALT 10 U/L (12-78) L 01/03/21 05:16 Alkaline Phosphatase 116 U/L (45-117) 01/03/21 05:16 Lipase 31 U/L (73-393) L 01/02/21 09:51 Home Medications: Atenolol [Tenormin] 100 mg PO DAILY 02/17/20 Diphenhydramine [Benadryl*] 50 mg PO BEDTIME PRN PRN 02/17/20 Oxycodone HCl/Acetaminophen [Oxycodone-Acetaminophen 10-325] 1 each PO Q6HP PRN 02/17/20 Meropenem [Merrem 500 MG/100 ML NS IVPB] 500 mg IV Q8HR 14 Days bag 01/05/21 New Medications: Meropenem [Merrem 500 MG/100 ML NS IVPB] 500 mg IV Q8HR 14 Days bag Physician Discharge Instructions: Weekly BMP and CBC x 2. Diet: Regular Followup: Nidia Mason MD [Primary Care Provider] - 1-2 Weeks Time spent managing pt's care (in minutes): 33
[2021-01-05 13:21] VITALS: BP 123/76; TEMP 98.6
== END 2021-01-05 16:11 | disposition home health service (06) | DRG 690 ==
LOC: ER 06:00 → ERHOLD 10:22 → 2ND 12:35
PROVIDERS: ADMIT Hospitalist; ATTEND Internal Medicine
DX: N39.0 Urinary tract infection, site not specified (principal); Z16.12 Extended spectrum beta lactamase (ESBL) resistance; E46 Unspecified protein-calorie malnutrition; Z16.24 Resistance to multiple antibiotics; G82.20 Paraplegia, unspecified; K21.9 Gastro-esophageal reflux disease without esophagitis; E86.0 Dehydration; D72.829 Elevated white blood cell count, unspecified; D64.9 Anemia, unspecified; Q05.9 Spina bifida, unspecified; E66.9 Obesity, unspecified; M41.9 Scoliosis, unspecified; I10 Essential (primary) hypertension; L89.159 Pressure ulcer of sacral region, unspecified stage; L89.319 Pressure ulcer of right buttock, unspecified stage; B96.20 Unspecified Escherichia coli [E. coli] as the cause of diseases classified elsewhere; B96.5 Pseudomonas (aeruginosa) (mallei) (pseudomallei) as the cause of diseases classified elsewhere; Z88.8 Allergy status to other drugs, medicaments and biological substances; Z88.1 Allergy status to other antibiotic agents; Z91.040 Latex allergy status; Z79.899 Other long term (current) drug therapy; Z91.048 Other nonmedicinal substance allergy status; Z86.14 Personal history of Methicillin resistant Staphylococcus aureus infection; Z89.411 Acquired absence of right great toe; Z95.828 Presence of other vascular implants and grafts; Z68.32 Body mass index [BMI] 32.0-32.9, adult; Z20.822 Contact with and (suspected) exposure to COVID-19
CPT/HCPCS: 36415; 71045; 74176; 76377; 80048; 80053; 81003; 81015; 81025; 83605; 83690; 83735; 84132; 84145; 85025; 86140; 87040; 87070; 87077; 87086; 87088; 87186; 87205; 93005; 94760; 96374; 96375; 97161; 97530; 97542; 99285; J1650; J2185; J2270; J7030; U0003

== ENCOUNTER 2021-08-06 13:10 | Inpatient (IN) | payer OTHER ==
--- OUTSIDE RECORDS SUMMARY | 2021-08-06 13:13 | XMS REPORT | Continuity of Care Document ---
:1990 Author Organization [facility] t Address [address] [place] [address] Care Team Providers Name Role Phone Doctor Unassigned, Name Attending Clinician Unavailable Cl FERRARA, Samanta Attending Clinician Pob, Lab Main Attending Clinician Unavailable EMMANUELTA Attending Clinician Unavailable Musa FERRARA, P Attending Clinician Samanta JEAN Attending Clinician Unavailable Jeff Meraz MD, Kermit Davila Attending Clinician + Payers Payer Name Policy Type Policy Number Effective Date Expiration Date Marko GALVEZ O [id number] 2018 00:00:00 [facility] [id number] 2017 00:00:00 PLUS Problems Condition Condition Condition Status Onset Resolution Last Treating Co mments Source Name Details Category Date Date Treatment Clinician Date Other Other Disease Active Last [facility] scoliosis, scoliosis, 00:00: t & Plan: of thoracolum thoracolum 00 Resulting Medicin bar region bar region in severe e restricti ve lung disease Sleep-diso Sleep-diso Disease Active Last Tanna bonner rdered rdered - Assessmen [place] breathing breathing 00:00: t & Plan: o f 00 High risk Medicin patient e for sleep disordere d breathing / Hypoventi lation Also History of apnea and anatomy of the upper airway suggestiv e of sleep disordere d breathing .Discusse d with patient the pathophys iology of sleep apnea, diagnosis and treatment optionsWi ll go ahead and order a sleep study with etCo2 and further managment as indicated Restrictiv Restrictiv Disease Active Last [facility] e lung e lung 12-01 [facility] disease disease 00:00: t & Plan: of due to due to 00 PFt poor Medicin kyphoscoli kyphoscoli quality, e osis osis patient was very anxious during testing, sig restricti on Alveolar Alveolar Disease Active [facility] r hypoventil hypoventil 12-01 [facility] ation ation 00:00: t & Plan: of 00 High Medicin risk e patient Will check on sleep study 17 weeks 17 weeks Disease Active Last [facility] r gestation gestation 12-01 [facility] C ollege of of 00:00: t & Plan: of 00 High risk M edicin patient, e will follow closely Sleep-diso Sleep-diso Disease Active Last Tanna aylor rdered rdered 12-01 [facility] breathing breathing 00:00: t & Plan: o f 00 High risk Medicin patient e for sleep disordere d breathing / Hypoventi lation Also History of apnea and anatomy of the upper airway suggestiv e of sleep disordere d breathing .Discusse d with patient the pathophys iology of sleep apnea, diagnosis and treatment optionsWi ll go ahead and order a sleep study with etCo2 and further managment as indicated Allergies, Adverse Reactions, Alerts Allergy Allergy Status Severity Reaction(s) Onset Inactive Treating Comm ents Source Name Type Date Date Clinician TEGADERM DRUG Active Hives Univers DRESSING INGREDI 6-13 ity of 00:00: [place] 00 [facility] VANCOMYC DRUG Active ITCHING Univers IN INGREDI 5-25 ity of 00:00: [place] 00 [facility] SULFA Drug Active Rash Univers (SULFONA Class 4-13 ity of MIDE 00:00: [place] ANTIBIOT 00 Medical ICS) Branch Sulfa Propensi Active Rash [facility] Antibiot ty to 4-13 [facility] ics adverse 00:00: of reaction 00 Medicin s to e drug Latex Propensi Active Rash [facility] ty to 02-25 College adverse 00:00: of reaction 00 Medicin s to e substanc e LATEX DRUG Active High Rash Univers INGREDI 02-25 ity of 00:00: [place] 00 [facility] SULFAMET DRUG Active Hives Univers HOXAZOLE 02-25 ity of (BULK) 00:00: [place] 00 [facility] Sulfamet Propensi Active Rash [facility] hoxazole ty to 02-25 [place] W/Trimet adverse 00:00: of hoprim reaction 00 Medicin s to e drug Social History Social Habit Start Date Stop Date Quantity Comments Source Sex Assigned At [facility] Co llege of Medicine History [facility] Alcohol Std Drinks of Med icine History [facility] Alcohol Binge of Medicine Alcohol intake 2019-08-29 2019-08-29 Lifetime [facility] Col lege 00:00:00 00:00:00 non-drinker of Medicine (finding) History [facility] 2018-11-25 2018-11-25 1 [facility] Alcohol Frequency 00:00:00 00:00:00 of [facility] [email or web address] Smoking Status Start Date Stop Date Source Never smoker [facility] o f Medicine Medications Ordered Filled Start Stop Current Ordering Indication Dosage Frequency Signature Comments Components Source Medication Medication Date Date Medication? Clinician (SIG) Name Name dicyclomine 0 Yes 10mg Take 10 mg [facility] (BENTYL) 10 24 by mouth. Col lege MG capsule 19:29: of 04 Medicin e ondansetron 2019-0 Yes [facility] (ZOFRAN) 4 - [facility] MG tablet 00:00: of Medicin e promethazin 2019-0 Yes [facility] e 08-07 [place] (PHENERGAN) 00:00: of 25 MG 00 Medicin tablet e diphenhydrA Yes 50mg Take 50 mg [facility] MINE 9-24 by mouth [place] (BENADRYL) 16:23: daily. of 25 MG 12 Medicin capsule e diphenhydrA Yes 50mg Take 50 mg [facility] MINE 9-24 by mouth [place] (BENADRYL) 16:23: daily. of 25 MG 12 Medicin capsule e nystatin-tr Yes [id number] Apply to [facility] iamcinolone 12-12 bilateral Col [facility]ge (MYCOLOG) 00:00: clean dry of ointment 00 groin BID Medici n x 7 days e nystatin-tr Yes [id number] Apply to [facility] iamcinolone 12-12 bilateral Col lege (MYCOLOG) 00:00: clean dry of ointment 00 groin BID Medici n x 7 days e oxybutynin 2019- No [id number] 10mg Take 1 Tab [place] (DITROPAN-X 12-12 by mouth Col lege L) 10 MG CR 00:00: 00:00 daily. of tablet 00 :00 Medicin e nitrofurant 2019- No 1{capsu Take 1 Cap [place] oin, 11-18 le} by mouth [place] macrocrysta 00:00: 00:00 daily. of l-monohydra 00 :00 Medicin te, e (MACROBID) 100 MG capsule Prenat-Fe 2019- No 1{tbl} Take 1 Tab [facility] Poly-Methfo 11-18 by mouth Col lege l-FA-DHA 00:00: 00:00 daily. of (VITAFOL 00 :00 Medicin ULTRA) e 29-0.6-0.4- 200 MG CAPS DICLEGIS 2019- No 3{tbl} Take 3 [facility] or 10-10 MG -04-29 Tabs by [place] TBEC 00:00: 00:00 mouth of 00 :00 daily. 2 Medicin tablets in e am and 1 tab in PM Cholecalcif Yes 1{tbl} Take 1 Tab [place] dorene 3-12 by mouth [place] (VITAMIN 00:00: daily. of D-3) 1000 00 Medicin units CAPS e Cholecalcif 2018- Yes 1{tbl} Take 1 Tab [facility] dorene 3-12 by mouth [place] (VITAMIN 00:00: daily. of D-3) 1000 00 Medicin units CAPS e omeprazole Yes 20mg Take 20 mg [facility] (PRILOSEC) 3-11 by mouth Colle ge 20 MG 00:00: daily. of capsule 00 Medicin e aspirin EC Yes 81mg Take 81 mg [facility] 81 MG 3-11 by mouth College tablet 00:00: daily. of 00 Medicin e omeprazole Yes 20mg Take 20 mg [facility] (PRILOSEC) 3-11 by mouth Colle ge 20 MG 00:00: daily. of capsule Medicin e aspirin EC Yes 81mg Take 81 mg [facility] 81 MG 3-11 by mouth College tablet 00:00: daily. of 00 Medicin e oxycodone-a Yes 2{tbl} Take 2 [facility] cetaminophe 3-06 Tabs by Colle ge n 00:00: mouth of (PERCOCET) 00 daily. Medicin 10-325 MG e per tablet oxycodone-a Yes 2{tbl} Take 2 [facility] cetaminophe 3-06 Tabs by Colle ge n 00:00: mouth of (PERCOCET) 00 daily. Medicin 10-325 MG e per tablet labetalol Yes 200mg Take 200 [facility] (NORMODYNE) 2-15 mg by College 200 MG 00:00: mouth of tablet 00 every 12 Medicin hours. e labetalol Yes 200mg Take 200 [facility] (NORMODYNE) 2-15 mg by College 200 MG 00:00: mouth of tablet 00 every 12 Medicin hours. e atenolol 2016-08 Yes DAILY [facility] (TENORMIN) 2-08 College 50 MG 00:00: of tablet 00 Medicin e Vital Signs Vital Name Observation Time Observation Value Comments Source Systolic blood 2019-08-29 19:27:00 135 mm[Hg] [facility] pressure Medicine Diastolic blood 2019-08-29 19:27:00 95 mm[Hg] [facility] pressure Medicine Heart rate 2019-08-29 19:27:00 93 /min [facility] Body temperature 2019-08-29 19:27:00 36.67 Pati [facility] Body weight 2019-08-29 19:27:00 31.752 kg [facility] BMI 2019-08-29 19:27:00 21.36 kg/m2 [facility] Systolic blood 2019-08-29 19:27:00 135 mm[Hg] [facility] pressure Medicine Diastolic blood 2019-08-29 19:27:00 95 mm[Hg] [facility] Medicine Heart rate 2019-08-29 19:27:00 93 /min [facility] ollege of Medicine Body temperature 2019-08-29 19:27:00 36.67 Pati [facility] Body weight 2019-08-29 19:27:00 31.752 kg [facility] ollege of Medicine BMI 2019-08-29 19:27:00 21.36 kg/m2 [facility] ollege of Medicine Systolic blood 2019-04-29 16:21:00 118 mm[Hg] [facility] pressure Medicine Diastolic blood 2019-04-29 16:21:00 79 mm[Hg] [facility] Medicine Heart rate 2019-04-29 16:21:00 95 /min [facility] ollege of Medicine Body height 2019-04-29 16:21:00 121.9 cm [facility] ollege of Medicine Body weight 2019-04-29 16:21:00 39.463 kg [facility] ollege of Medicine BMI 2019-04-29 16:21:00 26.55 kg/m2 [facility] ollege of Medicine Systolic blood 2019-04-29 16:21:00 118 mm[Hg] [facility] Medicine Diastolic blood 2019-04-29 16:21:00 79 mm[Hg] [facility] Medicine Heart rate 2019-04-29 16:21:00 95 /min [facility] ollege of Medicine Body height 2019-04-29 16:21:00 121.9 cm [facility] ollege of Medicine Body weight 2019-04-29 16:21:00 39.463 kg [facility] ollege of Medicine BMI 2019-04-29 16:21:00 26.55 kg/m2 [facility] ollege of [facility] Procedures This patient has no known procedures. Plan of Care Planned Activity Planned Date Details Comments Source Future Scheduled TETANUS SHOT [facility] Gopal ege Test (ADULT) [code = of Medicine TETANUS SHOT (ADULT)] Future Scheduled HIV SCREENING [code [facility] Test = HIV SCREENING] of Medicine Future Scheduled CERVICAL CANCER [facility] C ollege Test SCREENING 3 YEAR of Medicine FOLLOW UP [code = CERVICAL CANCER SCREENING 3 YEAR FOLLOW UP] Future Scheduled FLU VACCINE > 6 [place] C ollege Test MONTHS [code = FLU of Medici ne VACCINE > 6 MONTHS] Future Scheduled URINALYSIS AUTO Ordered: 08/29/2019 [facility] Test W/SCOPE [code = of Medicine 84582-5] Future Scheduled TETANUS SHOT [facility] Gopal [facility] Test (ADULT) [code = of Medicine TETANUS SHOT (ADULT)] Future Scheduled BMI FOLLOW UP PLAN [employer] Test [code = BMI FOLLOW of Medici ne UP PLAN] Future Scheduled HIV SCREENING [code [facility] [facility] Test = HIV SCREENING] of Medicine Future Scheduled CERVICAL CANCER [facility] C ollege Test SCREENING 3 YEAR of Medicine FOLLOW UP [code = CERVICAL CANCER SCREENING 3 YEAR FOLLOW UP] Future Scheduled FLU VACCINE > 6 [facility] C ollege Test MONTHS [code = FLU of Medici ne VACCINE > 6 MONTHS] Future Scheduled VIDEO URODYNAMICS 1 Occurrences [employer] Test [code = 96457] starting 08/29/2019 of Med icine until 08/29/2020 Future Scheduled US RENAL BILATERAL 1 Occurrences [facility] Test [code = 43559] starting 08/29/2019 of Med icine until 08/29/2020 Future Scheduled CYSTOSCOPY [code = 1 Occurrences [facility] Test [id number]] starting 08/29/2019 of Medic ine until 08/29/2020 Future Scheduled CULTURE, 2 Occurrences [facility] Col lege Test URINE/SENSITIVITY starting 08/29/2019 of Medicine ON ALL [code = until 08/28/2020 63731-3] Encounters Start End Encounter Admission Attending Care Care Encounter Source Date/Time Date/Time Type Type Clinicians Facility Department ID 2021-01-10 2021-01-10 Outpatient [facility] [id number] Univers 00:00:00 00:00:00 ity [facility] 2020-11-17 2020-11-17 Orders Doctor HURST 1.2.840.114 [id number] 00:00:00 00:00:00 Only Unassigned, JESSICA [id number] [facility] [id number] [id number] 2020-11-08 2020-11-08 Outpatient [facility] [id number] Univers 00:00:00 00:00:00 ity [facility] 2020-11-08 2020-11-08 Orders Doctor NATALI Tinoco2.840.114 [id number] 00:00:00 00:00:00 Only Unassigned, JESSICA [id number] [facility] [id number] [id number] [id number] 2020-10-11 2020-10-11 Telephone [facility] 1.2.840.114 [id number] 00:00:00 00:00:00 [facility] [id number] [place] [id number] Professio [phone] nal 0[address] Office [address] One 2020-10-10 2020-10-10 Orders Doctor NATALI 1.2.840.114 [id number] 00:00:00 00:00:00 Only Unassigned, JESSICA [id number] [facility] [id number] [id number] [id number] 2020-09-17 2020-09-17 Security Field Supervisor [facility] 1.2.840.114 [id number] 16:26:39 16:41:39 Visit Lab Main [place] [id number] [place] 4.2.7.2.686 Professio [phone] nal 353 Building 2020-09-17 2020-09-17 Outpatient R [facility] [id number] Univers 16:30:00 16:30:[id number] [facility] 2020-09-17 2020-09-17 [facility] [id number] [facility] 16:30:00 16:30:[address] [facility] 2020-09-17 2020-09-17 Orders Doctor NATALI 1.2.840.114 [id number] 00:00:00 00:00:00 Only Unassigned, JESSICA [id number] [facility] [id number] [id number] [id number] 2020-07-05 2020-07-05 Outpatient R [facility] [id number] Univers 14:30:00 14:30:[address] [facility] 2020-07-05 2020-07-05 [facility] [id number] Univers 14:30:00 14:30:[address] [facility] 2020-07-05 2020-07-05 Security Field Supervisor Erika Adams [facility] 1.2.840.114 [id number] 14:05:50 14:20:50 Visit Lab Main [place] [id number] [place] 4.2.7.2.686 Profcheryl [phone] [facility] 353 [facility] 2020-07-05 2020-07-05 Orders Doctor HURST 1.2.840.114 [id number] 00:00:00 00:00:00 Only Unassigned, JESSICA [id number] [facility] 4.2.7.2.686 [id number] 2020-05-17 2020-05-17 Orders Doctor HURST 1.2.840.114 [id number] 00:00:00 00:00:00 Only Unassigned, JESSICA [id number] [facility] 4.2.7.2.686 [id number] 2020-03-18 2020-03-18 Orders Doctor HURST 1.2.840.114 [id number] 00:00:00 00:00:00 Only Unassigned, JESSICA [id number] [facility] 4.2.7.2.686 [id number] 2020-03-09 2020-03-09 Orders Doctor HURST 1.2.840.114 [id number] 00:00:00 00:00:00 Only Unassigned, JESSICA [id number] [facility] 4.2.7.2.686 [id number] [id number] 2020-01-05 2020-01-05 Orders Doctor HURST 1.2.840.114 [id number] 00:00:00 00:00:00 Only Unassigned, JESSICA [id number] [facility] 4.2.7.2.686 [id number] 2019-12-18 2019-12-18 Telephone Cl [facility] 1.2.840.114 [id number] 00:00:00 00:00:00 Lewisethansharmaine Valladares 350.1.13.10 [place] 4.2.7.2.686 Profcheryl [id number] [facility] 044 [facility] 2019-12-16 2019-12-16 Telephone [place] 1.2.840.114 [id number] 00:00:00 00:00:00 Wondiful A [place] 350.1.13.10 [place] 4.2.7.2.686 Professio [phone] [address] 2019-12-09 2019-12-09 Orders Doctor NATALI 1.2.840.114 [id number] 00:00:00 00:00:00 Only Unassigned, JESSICA 350.1.13.10 [facility] 4.2.7.2.686 [id number] [id number] 2019-11-24 2019-11-24 Telephone [place] 1.2.840.114 [id number] 00:00:00 00:00:00 [place]iful A [place] 350.1.13.10 [place] 4.2.7.2.686 Professio [phone] [address] 2019-11-24 2019-11-24 Orders Doctor NATALI 1.2.840.114 [id number] 00:00:00 00:00:00 Only Unassigned, JESSICA 350.1.13.10 [facility] 4.2.7.2.686 [id number] [id number] 2019-11-07 2019-11-07 Orders Doctor NATALI 1.2.840.114 [id number] 00:00:00 00:00:00 Only Unassigned, JESSICA 350.1.13.10 [facility] 4.2.7.2.686 [id number] [id number] 2019-11-05 2019-11-05 Telephone [place] 1.2.840.114 [id number] 00:00:00 00:00:00 [place]ondiful A [place] 350.1.13.10 [place] 4.2.7.2.686 Professio [phone] [address] 2019-10-30 2019-10-30 Telephone [facility] 1.2.840.114 [id number] 00:00:00 00:00:00 [facility] [id number] [place] 4.2.7.2.686 Professio [phone] [place] [address] [address] 2019-10-30 2019-10-30 Orders Doctor NATALI 1.2.840.114 [id number] 00:00:00 00:00:00 Only Unassigned, JESSICA [id number] [facility] 4.2.7.2.686 [id number] 2019-10-22 2019-10-22 Telephone Cl [facility] 1.2.840.114 [id number] 00:00:00 00:00:00 [facility] 350.1.13.10 [place] 4.2.7.2.686 Professio [phone] [address] One 2019-10-20 2019-10-20 Telephone Cl [facility] 1.2.840.114 [id number] 00:00:00 00:00:00 [facility] [id number] [place] 4.2.7.2.686 Professio [phone] [address] 2019-10-15 2019-10-15 [place] Cl [facility] 1.2.840.114 [id number] 00:00:00 00:00:00 [facility] 350.1.13.10 [place] 4.2.7.2.686 Professio [phone] [address] 2019-10-08 2019-10-08 Eloisa Jean [facility] 1.2.840.114 [id number] 00:00:00 00:00:00 [facility] 350.1.13.10 [place] 4.2.7.2.686 Professio [phone] [address] One 2019-08-29 2019-08-29 Office RAS VigilTrish 1.2.840.114 [id number] 13:02:13 13:12:13 Visit Christopher AMBULATOR 350.1.13.21 P Y 0.2.7.2.686 [phone] [facility] 2019-08-29 2019-08-29 Office RAS VigilTrish 1.2.840.[id number] [place] [address] 13:02:13 13:12:13 Visit Christopher AMBULATOR 350.1.13.21 [place] [facility] Y 0.2.7.2.686 leobardo [phone] [facility] 300 e 2019-08-15 2019-08-15 Outpatient Patrick JEAN [facility] [id number] Univers 15:00:00 15:09:49 WONDIFUL ity o f [facility] 2019-05-15 2019-05-15 Outpatient Patrick JEAN [facility] [id number] Univers 15:00:00 15:59:45 WONDIFUL ity o f [facility] 2019-04-29 2019-04-29 Office Jeff SHIRLEY [id number] 10:53:12 12:18:36 Visit Kt, AMBULATOR 350.1.13.21 Rasheed Kermit Y 0.2.7.2.686 [place] [phone] [facility] 2019-04-29 2019-04-29 Office Jeff SHIRLEY [id number] [facility] 10:53:12 12:18:36 Visit Kt, AMBULATOR 350.1.13.21 College Rasheed Carmen Y 0.2.7.2.686 of [place] [phone] [facility] 800 e 2019-04-21 2019-04-21 Outpatient Patrick JEAN [facility] [id number] Univers 16:30:00 16:55:27 WONDIFUL ity o f [facility] Results This patient has no known results.
[2021-08-06 13:32] LABS: Urine Blood 2+ (Negative); Urine Glucose Negative (Negative); Urine Protein 2+ (Negative); Urine Specific Gravity 1.025 (1.005-1.030)
[2021-08-06 14:04] LABS: Urine Bacteria >50 /HPF (<20)
--- NOTE | 2021-08-06 14:10 | RAD REPORT ---
EXAM DESCRIPTION: RAD - Chest Single View - 08/06/2021 1:47 pm CLINICAL HISTORY: FEVER COMPARISON: Portable January 02 TECHNIQUE: AP portable chest image was obtained 08/06/2021 1:47 pm . FINDINGS: No acute lung parenchymal process identifiable. Again noted is the deformity in the thorac ic cage due to the severe spinal deformity. Medial left base in the posterior gutter each lung field limited in assessment. No gross change from prior imaging. Heart size is normal. Pulmonary vasculatur e within normal limits. No measurable pleural effusion and no pneumothorax. No acute bony abnormality seen. No acute aortic findings suspected. IMPRESSION: No acute cardiopulmonary process.
[2021-08-06] MEDS ORDERED: Meropenem 1000 MG/VIAL IV ONE (14:17)
[2021-08-06] MEDS ORDERED: ONDANSETRON 4 MG/2 ML VIAL ONE ×2 (14:18→21:55)
[2021-08-06] MEDS ORDERED: NA CHLORIDE 0.9% 1,000 ML ONE (14:18)
[2021-08-06] MEDS ORDERED: NA CHLORIDE 0.9% 250 ML ONE (14:18)
[2021-08-06] MEDS ORDERED: MORPHINE 4 MG/ML SYR ONE ×2 (14:18→17:24)
[2021-08-06 14:20] LABS: Urine Specific Gravity/Preg 1.025 (1.005-1.030)
--- NOTE | 2021-08-06 15:28 | RAD REPORT ---
EXAM DESCRIPTION: CT - Stone Protocol - 08/06/2021 2:55 pm CLINICAL HISTORY: FLANK PAIN COMPARISON: CT study January 02 TECHNIQUE: Axial [address] imaging of the abdomen and pelvis was performed without IV contrast. No IV contrast was given because of allergy, abnormal renal function, patient refusal or physician re quest. No oral contrast administered. All CT scans are performed using dose optimization technique as appropriate and may include automated exposure control or mA/KV adjustment according to patient size. FINDINGS: Patient has a well-documented marked deformity of the thoracic cage, abdomen and pelvis fr om underlying spina bifida. No acute lung parenchymal process present. No pleural effusion or pneumot horax. No cardiomegaly or pericardial effusion. The liver, spleen and pancreas show no suspicious findings on non-contrast imaging. Gallstone is pres ent as previously seen. No active gallbladder or biliary tree process identifiable. No hydronephrosis or suspicious renal mass. Nonobstructing calculi seen in upper pole of the right ki dney lower pole of the left kidney matching the May examination. No ureteral or bladder calculi seen. No significant adrenal finding. Isodense renal masses and pyelonephritis cannot be excluded in the a bsence of IV contrast. The urinary bladder is without significant finding. No gastric dilatation or gastric wall thickening. No acute small bowel finding. Large stool volume di lates the rectum to 6 cm. Moderate stool volume elsewhere in the nondilated colon. No free air, free fluid or inflammatory stranding. No hernia, mass or bulky lymphadenopathy. Marked deformity of the skeleton again noted. Decubitus ulcer changes are present near the left ischi um. There is chronic sclerosis of the left ischium. No new bone finding identified. IMPRESSION: Patient has nonobstructing renal calculi that match the May examination. No hydronephros is or acute finding identifiable. Marked deformity of the skeleton is again noted. Patient has chronic spina bifida changes as well as chronic sclerotic left ischium changes related to decubitus ulcer. Dilated rectum to 6 cm due to a large amount of stool. Full assessment is limited is the absence of IV contrast.
[2021-08-06 15:33] LABS: Absolute Lymphocytes (CBC) 1.2 K/uL (0.7-4.9); Hematocrit 39.1 % (36.0-45.0); Lymphocytes % 24.7 % (15.3-44.8); MPV 7.9 fL (7.6-11.3); RBC Red Blood Cell Count 4.32 M/uL (3.86-4.86)
[2021-08-06 15:37] LABS: Protime INR 1.48
[2021-08-06 15:47] LABS: ALT/SGPT 16 U/L (12-78); AST/SGOT 13 U/L (15-37); Albumin 2.9 g/dL (3.4-5.0); Alkaline Phosphatase 115 U/L (45-117); BUN Blood Urea Nitrogen 6 mg/dL (7-18); Bicarbonate 24 mmol/L (21-32); Bilirubin Direct < 0.1 mg/dL (0-0.2); Bilirubin Total 0.2 mg/dL (0.2-1.0); Glucose Level 88 mg/dL (74-106); Lipase 32 U/L (73-393); Potassium 3.9 mmol/L (3.5-5.1); Protein, Total 7.3 g/dL (6.4-8.2); Sodium Level 139 mmol/L (136-145)
--- NOTE | 2021-08-06 16:42 | EDPHYS ---
Physician Documentation [facility] Name: Shari Estrella Age: 31 yrs Sex: Female : 1990 Arrival Date: 08/06/2021 Time: 13:13 Bed Treatment Private MD: KELTON Physician Joel Ariza HPI: 08/06 13:31 This 31 yrs old Female presents to ER via EMS with complaints of Back pain. pm1 13:31 The patient presents with pain Low back pain. The symptoms are located in the left low pm1 back and right low back. 13:31 Onset: The symptoms/episode began/occurred yesterday. The pain does not radiate. pm1 Associated signs and symptoms: Pertinent positives: fever, Pertinent negatives: dysuria, nausea, numbness, tingling, vomiting. The problem was sustained Possible UTI or sacral decubitus per history. Modifying factors: The patient symptoms are alleviated by nothing, the patient symptoms are aggravated by nothing. The patient has experienced similar episodes in the past, multiple times. The patient has not recently seen a physician. 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 - Social history:: Smoking status: Patient denies any tobacco usage or history of. ROS: 13:31 Cardiovascular: Negative for chest pain, palpitations, and edema, Respiratory: Negative pm1 for shortness of breath, cough, wheezing, and pleuritic chest pain, Abdomen/GI: Negative for abdominal pain, nausea, vomiting, diarrhea, and constipation. 13:31 MS/Extremity: Negative for injury and deformity, Skin: Negative for injury, rash, and discoloration. 13:31 Neuro: Negative for headache, weakness, numbness, tingling, and seizure. 13:31 Constitutional: Positive for fever. 13:31 Back: Positive for flank pain, bilaterally. 13:31 All other systems are negative. Exam: 13:31 Constitutional: This is a well developed, well nourished patient who is awake, alert, pm1 and in no acute distress. Head/Face: Normocephalic, atraumatic. 13:31 Cardiovascular: Exam negative for acute changes, Rate: normal, Rhythm: regular, Pulses: no pulse deficits are appreciated. 13:31 Respiratory: Exam negative for acute changes, respiratory distress, shortness of breath, Breath sounds: are clear throughout. 13:31 Abdomen/GI: Palpation: abdomen is soft and non-tender, in all quadrants. 13:31 Back: scoliosis that is marked. 13:31 Skin: Appearance: normal except for affected area, Stage 3 decubitus to sacral area without any signs of infection: No discharge, drainage or odor. 13:31 Neuro: Exam negative for acute changes, Orientation: is normal, Mentation: is normal. Vital Signs: 13:18 BP 143 / 100; Pulse 100; Resp 18; Temp 100(O); Pulse Ox 97% ; Weight 34.02 kg; Height 3 myles ft. 8 in. (111.76 cm); 16:00 BP 133 / 87; Pulse 97; Resp 18; Pulse Ox 100% on R/A; myles 17:15 BP 138 / 92; Pulse 96; Resp 17; Pulse Ox 100% on R/A; ww 18:58 BP 133 / 92; Pulse 92; Resp 18; Pulse Ox 100% on R/A; ww 08/08 00:37 BP 168 / 87; Pulse 54; Resp 18; Pulse Ox 98% on R/A; tw5 06:14 BP 145 / 96; Pulse 50; Resp 18; Pulse Ox 97% on R/A; tw5 08/06 13:18 Body Mass Index 27.24 (34.02 kg, 111.76 cm) myles MDM: 08/06 13:15 Patient medically screened. ira 16:30 Counseling: I had a detailed discussion with the patient and/or guardian regarding: the pm1 historical points, exam findings, and any diagnostic results supporting the discharge/admit diagnosis, lab results, radiology results, the need for further work-up and treatment in the hospital. 16:39 Data reviewed: vital signs. Data interpreted: Pulse oximetry: on room air is 100 %. pm1 Interpretation: normal. 16:40 Physician consultation: Tristen Siu regarding admission, patient's condition, in the pm1 emergency department to see patient at 16:40. 08/06 13:31 Order name: CBC with Diff; Complete Time: 15:39 pm1 08/06 13:31 Order name: LFT's; Complete Time: 15:52 pm1 08/06 13:31 Order name: Lactate; Complete Time: 16:15 pm1 08/06 13:31 Order name: Lipase; Complete Time: 15:52 pm1 08/06 13:31 Order name: Procalcitonin; Complete Time: 16:45 pm1 08/06 13:31 Order name: Protime (+inr); Complete Time: 15:39 pm1 08/06 13:31 Order name: Ptt, Activated; Complete Time: 15:39 pm1 08/06 13:31 Order name: Urine Microscopic Only; Complete Time: 14:13 pm1 08/06 13:31 Order name: Basic Metabolic Panel; Complete Time: 15:52 EDMS 08/06 13:31 Order name: Blood Culture; Complete Time: 10:55 EDMS 08/06 13:32 Order name: Urine Dipstick-Ancillary; Complete Time: 13:34 EDMS 08/06 13:33 Order name: Urine Dipstick-Ancillary EDMS 08/06 13:31 Order name: Chest Single View XRAY; Complete Time: 14:13 pm1 08/06 13:31 Order name: CT Stone Protocol; Complete Time: 15:39 pm1 08/06 13:49 Order name: Urine --Ancillary (enter results) eb 08/06 13:50 Order name: Urine --Ancillary; Complete Time: 15:16 EDMS 08/06 14:05 Order name: Urine Culture; Complete Time: 10:55 EDMS 08/06 14:21 Order name: SARS-COV-2 RT PCR (Document "Date of Onset" if Symptomatic); Complete Time: eb 16:29 08/06 19:08 Order name: Lactate Sepsis 2 HR Follow-up; Complete Time: 18:05 EDMS 08/07 04:32 Order name: CBC with Automated Diff; Complete Time: 18:05 EDMS 08/07 04:40 Order name: Basic Metabolic Panel; Complete Time: 18:05 EDMS 08/07 04:40 Order name: Phosphorus; Complete Time: 18:05 EDMS 08/07 04:40 Order name: Magnesium; Complete Time: 18:05 EDNM 08/06 13:31 Order name: EKG - Nurse/Tech; Complete Time: 14:06 pm1 08/06 13:31 Order name: Labs collected and sent; Complete Time: 16:21 pm1 08/06 13:31 Order name: Urine Dipstick-Ancillary (obtain specimen); Complete Time: 13:43 pm1 Administered Medications: 14:30 Drug: Meropenem 1 grams Route: IV; Rate: calculated rate; Site: Other; 08/08 00:38 Follow up: Response: No adverse reaction; IV Status: Completed infusion tw5 08/06 14:37 Drug: morphine 4 mg Route: IVP; Site: Other; 14:38 Follow up: Response: No adverse reaction myles 14:37 Drug: Zofran (Ondansetron) 4 mg Route: IVP; Site: Other; 14:37 Follow up: Response: No adverse reaction myles 14:38 Drug: NS 0.9% (30 ml/kg) 30 ml/kg Route: IV; Rate: bolus; Site: Other; myles 17:15 Follow up: IV Status: Completed infusion myles 14:38 Drug: NS 0.9% (30 ml/kg) 30 ml/kg Route: IV; Rate: bolus; Site: Other; 17:20 Drug: morphine 4 mg Route: IVP; Site: Other; 08/08 00:38 Follow up: Response: No adverse reaction; RASS: Alert and Calm (0) tw5 Disposition: 08/09 08:46 Co-signature as Attending Physician, Joel Ariza MD I agree with the assessment and ira plan of care. Disposition Summary: 08/06/21 16:42 Hospitalization Ordered Hospitalization Status: Inpatient Admission pm1 Provider: Tristen Siu pm1 Condition: Stable pm1 Problem: new pm1 Symptoms: have improved pm1 Bed/Room Type: Standard pm1 Location: [facility] ER HOLD(08/06/21 19:23) Room Assignment: ERHOLD-(08/06/21 19:23) Diagnosis - UTI/ Urinary tract infection, site not specified pm1 - Coronavirus infection, unspecified pm1 Forms: - Medication Reconciliation Form pm1 - SBAR form pm1 Signatures: Dispatcher [facility] Aly, Shilpa, RN Joel Astudillo MD MD cha Marinas, Patrick, SCUBA DIVER SCUBA DIVER pm1 Shukri, CHATA Meier RN, Heather, RN RN ha Wood, Tiffany tw5 Corrections: (The following items were deleted from the chart) 08/06 19: 16:42 Telemetry/MedSurg (Inpatient) 1 : 16:42 pm1
--- NOTE | 2021-08-06 16:42 | ER ---
Nurse's Notes [facility] Name: Shari Estrella Age: 31 yrs Sex: Female : 1990 Arrival Date: 08/06/2021 Time: 13:13 Bed Treatment Private MD: Diagnosis: UTI/ Urinary tract infection, site not specified;Coronavirus infection, unspecified Presentation: 08/06 13:18 Chief complaint: Patient states: bilateral flank pain. Coronavirus screen: Vaccine myles status: Patient reports being unvaccinated. Ebola Screen: Patient denies travel to an Ebola-affected area in the 21 days before illness onset. Initial Sepsis Screen: Does the patient meet any 2 criteria? HR > 90 bpm. No. Patient's initial sepsis screen is negative. Does the patient have a suspected source of infection? No. Patient's initial sepsis screen is negative. Risk Assessment: Do you want to hurt yourself or someone else? Patient reports no desire to harm self or others. Onset of symptoms was August 05, 2021. 13:18 Method Of Arrival: EMS: [facility] myles 13:18 Acuity: SAMAN 3 myles Triage Assessment: 13:20 General: Appears in no apparent distress. Behavior is calm, cooperative. Pain: myles Complains of pain in left low back and right low back. 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 - Social history:: Smoking status: Patient denies any tobacco usage or history of. Screenin:21 Abuse screen: Denies threats or abuse. Denies injuries from another. Nutritional myles screening: No deficits noted. Tuberculosis screening: No symptoms or risk factors identified. Fall Risk Secondary diagnosis (15 points) spinal bifda. Assessment: 18:58 General: Appears in no apparent distress. Behavior is calm, cooperative. Pain: myles Complains of pain in back and buttocks. GI: Reports Pain is 10 out of 10 on a pain scale. : Reports pain flank(s), Pain is 10 out of 10 on a pain scale. 20:54 General: Pt given her oxycodone/acetaminophen \\T\\ 2014. We are looking for an inpatient stacia bed, due to her limited mobility and skin breakdown. . 22:38 General: The pt was moved onto an "inpatient bed" and she is much more comfortable. She stacia had a large bm and I was able to change her easily, as she is a great assist. Excoriation to yaneli area was noted and the pt reports a hx of the same. She asked if I may get her home med of benadryl and something for breakthrough pain. I called Xiang and she said she would put the orders in. Pt resting well and in NAD. . 08/07 00:01 General: I assisted the pt with a straight cath, using her supra pubic catheter. She stacia had 200cc of light colored urine out. She is very adept at this and states she's been doing this "since (she) was little". . 08/08 00:37 General: Appears in no apparent distress. Behavior is calm, cooperative, appropriate tw5 for age. Pain: Pain currently is 9 out of 10 on a pain scale. Neuro: Level of Consciousness is awake, alert, obeys commands, Oriented to person, place, time, situation. Cardiovascular: Heart tones S1 S2 present. Respiratory: Airway is patent Trachea midline Respiratory effort is even, unlabored, Respiratory pattern is regular. 02:28 General: Appears in no apparent distress. comfortable, Behavior is calm, cooperative, tw5 appropriate for age, Reports " I am feeling good,.". 06:10 Reassessment: Patient appears in no apparent distress at this time. No changes from tw5 previously documented assessment. Vital Signs: 08/06 13:18 BP 143 / 100; Pulse 100; Resp 18; Temp 100(O); Pulse Ox 97% ; Weight 34.02 kg; Height 3 myles ft. 8 in. (111.76 cm); 16:00 BP 133 / 87; Pulse 97; Resp 18; Pulse Ox 100% on R/A; myles 17:15 BP 138 / 92; Pulse 96; Resp 17; Pulse Ox 100% on R/A; ww 18:58 BP 133 / 92; Pulse 92; Resp 18; Pulse Ox 100% on R/A; ww 08/08 00:37 BP 168 / 87; Pulse 54; Resp 18; Pulse Ox 98% on R/A; tw5 06:14 BP 145 / 96; Pulse 50; Resp 18; Pulse Ox 97% on R/A; tw5 08/06 13:18 Body Mass Index 27.24 (34.02 kg, 111.76 cm) ED Course: 08/06 13:13 Patient arrived in ED. [facility] 13:14 Williams Shelby NP is PHCP. pm1 13:14 Joel Ariza MD is Attending Physician. pm1 13:20 Triage completed. myles 13:20 Arm band placed on. myles 13:21 Patient has correct armband on for positive identification. Bed in low position. myles 13:21 No provider procedures requiring assistance completed. myles 13:42 Urine Dipstick-Ancillary Sent. 5 13:43 Urine Microscopic Only Sent. [facility] 13:46 Chest Single View XRAY In Process Unspecified. EDMS 14:04 Urine collected: straight cath specimen, cloudy. Straight cath inserted, using sterile [facility] technique, 12 Fr. Specimen obtained. 14:05 Urine --Ancillary (enter results) Sent. 5 14:05 Urine --Ancillary Sent. [facility] 14:06 EKG done, by ED staff, reviewed by Williams Shelby NP. [facility] 14:53 CT Stone Protocol In Process Unspecified. EDMS 16:41 Tristen Siu is Hospitalizing Provider. pm1 18:59 Accessed [facility]. myles 19:29 Sreenity Romero, RN is Primary Nurse. 08/07 22:30 Cleaned of incontinence. Linen changed. assisted the patient with self cathing. 2 08/08 00:37 Pulse ox on. NIBP on. Door closed. Noise minimized. Lights dimmed. Moved to private [facility] room. Warm blanket given. Verbal reassurance given. Administered Medications: 08/06 14:30 Drug: Meropenem 1 grams Route: IV; Rate: calculated rate; Site: Other; 08/08 00:38 Follow up: Response: No adverse reaction; IV Status: Completed infusion [facility] 08/06 14:37 Drug: morphine 4 mg Route: IVP; Site: Other; 14:38 Follow up: Response: No adverse reaction 14:37 Drug: Zofran (Ondansetron) 4 mg Route: IVP; Site: Other; 14:37 Follow up: Response: No adverse reaction myles 14:38 Drug: NS 0.9% (30 ml/kg) 30 ml/kg Route: IV; Rate: bolus; Site: Other; myles 17:15 Follow up: IV Status: Completed infusion myles 14:38 Drug: NS 0.9% (30 ml/kg) 30 ml/kg Route: IV; Rate: bolus; Site: Other; 17:20 Drug: morphine 4 mg Route: IVP; Site: Other; myles 08/08 00:38 Follow up: Response: No adverse reaction; RASS: Alert and Calm (0) tw5 Outcome: 08/06 16:42 Decision to Hospitalize by Provider. pm1 08/08 18:24 Patient left the ED. iw Signatures: Dispatcher [employer] EDApurva Blackburn RN RN Williams Shelby, SKIN DIVER SKIN DIVER pm1 Pamela Kilgore 5 Joaquin Meza 2 Crissy Watt tw5 Serenity Romero RN RN bo Wood, Whitney, RN RN ww Au-Stager, Heather, RN RN Corrections: (The following items were deleted from the chart) 06:14 06:10 Reassessment: Patient appears in no apparent distress at this time. No changes tw5 from previously documented assessment. Patient and/or family updated on plan of care and expected duration. Pain level reassessed. tw5
--- NOTE | 2021-08-06 18:03 | P.HP ---
Certification for Inpatient Patient admitted to: Inpatient With expected LOS: >2 Midnights Practitioner: I am a practitioner with admitting privileges, knowledge of patient current condition, hospital course, and medical plan of care. Services: Services provided to patient in accordance with Admission requirements found in Title 42 Section 412.3 of the Code of Federal Regulations Patient History Date of Service: 08/06/21 Reason for admission: Fever and vomiting History of Present Illness: 31-year-old woman with a history of spina bifida and scoliosis, history of hospitalizations for recurrent ESBL UTI presents to the emergency department with a complaint of fever, nausea and vomiting which is her usual presentation for UTI. UA done in the emergency department suggest UTI. Patient noted to be tachycardic, temperature of 100, no leukocytosis and does not meet criteria for sepsis. Patient tested positive for COVID-19. She is stable on room air. She is hospitalized for treatment with IV meropenem. Allergies adhesive tape Allergy (Verified 07/29/19 01:10) Rash Latex, Natural Rubber Allergy (Verified 07/29/19 01:10) Rash Sulfa (Sulfonamide Antibiotics) Allergy (Verified 07/29/19 01:10) Hives/Rash sulfamethoxazole [From Bactrim] Allergy (Verified 07/29/19 01:10) Hives trimethoprim [From Bactrim] Allergy (Verified 07/29/19 01:10) Hives vancomycin Allergy (Verified 07/29/19 01:10) Hives/Rash Adhesives Allergy (Uncoded 07/08/17 16:36) Unknown Home Medications: Atenolol [Tenormin] 100 mg PO DAILY 02/17/20 Diphenhydramine [Benadryl*] 50 mg PO BEDTIME PRN PRN 02/17/20 Oxycodone HCl/Acetaminophen [Oxycodone-Acetaminophen 10-325] 1 each PO Q6HP PRN 02/17/20 Meropenem [Merrem 500 MG/100 ML NS IVPB] 500 mg IV Q8HR 14 Days bag 01/05/21 - Past Medical/Surgical History Diabetic: No -: Stage 4 decubitus ulcer -: Spina Bifida -: MRSA -: scoliosis -: HTN -: GERD -: Osteomyelitis -: Recurrent UTI -: Multiple back surgeries -: Right great toe amputated -: bowel surgery cecostomy -: Suprapubic stoma -: FIXED CAPITAL CLERK shunt Psychosocial/ Personal History: Patient lives at home - Family History Mother -: Hypertension, Diabetes, Other (see notes) Notes: Lupus Father -: Hypertension, Diabetes Notes: Hyperlipidemia - Social History Alcohol use: No CD- Drugs: No Caffeine use: No Review of Systems Other: She denied any diarrhea or abdominal pain. She denied any cough or chest pain. Except as documented, all other systems reviewed and negative. Physical Examination - Physical Exam General: Alert, In no apparent distress, Oriented x3 HEENT: Mucous membr. moist/pink Neck: JVD not distended Respiratory: Clear to auscultation bilaterally, Normal air movement Cardiovascular: No edema, Regular rate/rhythm, Normal S1 S2, No murmurs Gastrointestinal: Normal bowel sounds, Soft and benign, Non-distended, No tenderness Musculoskeletal: No swelling, Scoliosis Integumentary: No rashes, No erythema Neurological: Normal speech, Normal strength at 5/5 x4 extr, Cranial nerves 3-12 intact Lymphatics: No axilla or inguinal lymphadenopathy - Studies Laboratory Data (last 24 hrs) 08/06/21 15:17: PT 17.1 H, INR 1.48, APTT 38.1 H 08/06/21 15:17: WBC 4.80, Hgb 12.5, Hct 39.1, Plt Count 237 08/06/21 15:17: Sodium 139, Potassium 3.9, BUN 6 L, Creatinine 0.40 L, Glucose 88, Total Bilirubin 0.2, AST 13 L, ALT 16, Alkaline Phosphatase 115, Lipase 32 L Assessment and Plan - Problems (Diagnosis) (1) Incontinence in female Onset Date: 06/01/17 Current Visit: No Status: Acute (2) Intermittent self-catheterization of bladder Current Visit: No Status: Acute (3) UTI (urinary tract infection) Onset Date: 07/12/15 Current Visit: No Status: Acute Qualifiers: (4) Lactic acidosis Current Visit: Yes Status: Acute - Plan Admit to the medical floor. Start IV meropenem for history of ESBL E. coli. Follow urine culture and blood culture. Resume home medications for hypertension Resume home medications for chronic pain. Lactic acid is elevated. Hydrate with normal saline. Serial lactate. - Advance Directives Does patient have a Living Will: No Does patient have a Durable POA for Healthcare: No
[2021-08-06] MEDS ORDERED: HOME MED 1 EA UNK (Oxycodone Hcl/Acetaminophen [Oxycodone-Acetaminophen 10-325] Tablet) PO PRN (19:38)
[2021-08-06] MEDS ORDERED: ACETAMINOPHEN 500 MG TAB PO PRN (19:38)
[2021-08-06] MEDS ORDERED: ONDANSETRON 4 MG/2 ML VIAL IV PRN (19:38)
[2021-08-06] MEDS: NA CHLORIDE 0.9% 1,000 ML IV SCH (19:38)
[2021-08-06] MEDS ORDERED: OXYCODONE *CR* 10 MG TAB PO ONE ×2 (19:48→19:52)
[2021-08-06] MEDS ORDERED: ACETAMINOPHEN 325 MG TABLET ONE (20:03)
[2021-08-06] MEDS ORDERED: ACETAMINOPHEN 325 MG TABLET PO PRN (20:26)
[2021-08-06] MEDS: OXYCODONE HCL 5 MG TAB PO PRN (21:32)
[2021-08-06] MEDS ORDERED: DIPHENHYDRAMINE 25 MG TAB/CAP PO PRN (22:37)
[2021-08-06] MEDS: MORPHINE 2 MG/ML SYR IV PRN (23:39)
[2021-08-06] MEDS ORDERED: DIPHENHYDRAMINE 25 MG TAB/CAP ONE (23:43)
[2021-08-06] MEDS ORDERED: MORPHINE 2 MG/ML SYR ONE (23:43)
[2021-08-07] MEDS: Meropenem 500 MG/100 ML BAG IV SCH ×3 (01:00→17:00)
[2021-08-07] MEDS ORDERED: Meropenem 500 MG VIAL IV ONE ×2 (01:58→08:20)
[2021-08-07] MEDS ORDERED: NA CHLORIDE 0.9% 100 ML ONE (01:58)
[2021-08-07] MEDS ORDERED: OXYCODONE HCL 5 MG TAB ONE ×2 (04:24→13:40)
[2021-08-07] MEDS ORDERED: ACETAMINOPHEN 325 MG TABLET ONE ×2 (04:25→13:40)
[2021-08-07 04:26] LABS: Absolute Lymphocytes (CBC) 1.3 K/uL (0.7-4.9); Hematocrit 34.4 % (36.0-45.0); Lymphocytes % 35.3 % (15.3-44.8); MPV 7.8 fL (7.6-11.3); RBC Red Blood Cell Count 3.81 M/uL (3.86-4.86)
[2021-08-07 04:38] LABS: BUN Blood Urea Nitrogen 4 mg/dL (7-18); Bicarbonate 25 mmol/L (21-32); Glucose Level 88 mg/dL (74-106); Phosphorus 2.4 mg/dL (2.5-4.9); Potassium 3.1 mmol/L (3.5-5.1); Sodium Level 141 mmol/L (136-145)
[2021-08-07] MEDS: OXYCODONE HCL 5 MG TAB PO PRN (04:43)
[2021-08-07] MEDS: NA CHLORIDE 0.9% 1,000 ML IV SCH (05:38)
[2021-08-07] MEDS ORDERED: NA CHLORIDE 0.9% 1,000 ML ONE ×2 (06:30→17:07)
[2021-08-07] MEDS ORDERED: atenoloL 50 MG TAB ONE (08:20)
[2021-08-07] MEDS ORDERED: ENOXAPARIN 40 MG/0.4 ML SQ ONE (08:21)
[2021-08-07] MEDS ORDERED: NA CHLORIDE 0.9% 250 ML ONE (08:21)
[2021-08-07] MEDS: atenoloL 50 MG TAB PO SCH (08:59)
[2021-08-07] MEDS: ENOXAPARIN 40 MG/0.4 ML SQ SCH (08:59)
[2021-08-07 09:09] VITALS: BMI 27.2
[2021-08-07] MEDS ORDERED: MORPHINE 2 MG/ML SYR ONE ×2 (09:50→22:04)
[2021-08-07] MEDS ORDERED: ONDANSETRON 4 MG/2 ML VIAL ONE (09:51)
[2021-08-07] MEDS: MORPHINE 2 MG/ML SYR IV PRN ×2 (10:00→22:03)
--- NOTE | 2021-08-07 13:21 | P.PN ---
Subjective Date of Service: 08/07/21 Chief Complaint: Fever and vomiting Patient doing much better. She denies any vomiting. She is tolerating her meals. She has been afebrile. Physical Examination - Vital Signs Temperature: 98.2 F Blood Pressure: 117/72 Pulse: 55 Respirations: 17 Pulse Ox (%): 98 - Physical Exam General: Alert, In no apparent distress, Oriented x3 HEENT: Mucous membr. moist/pink Neck: JVD not distended Respiratory: Clear to auscultation bilaterally, Normal air movement Cardiovascular: No edema, Regular rate/rhythm, Normal S1 S2 Capillary refill: <2 Seconds Gastrointestinal: Normal bowel sounds, Soft and benign, Non-distended, No tenderness Musculoskeletal: No swelling Integumentary: No rashes Neurological: Other (No focal motor deficit.) - Studies Laboratory Data (last 24 hrs) 08/06/21 15:17: PT 17.1 H, INR 1.48, APTT 38.1 H 08/06/21 15:17: WBC 4.80, Hgb 12.5, Hct 39.1, Plt Count 237 08/06/21 15:17: Sodium 139, Potassium 3.9, BUN 6 L, Creatinine 0.40 L, Glucose 88, Total Bilirubin 0.2, AST 13 L, ALT 16, Alkaline Phosphatase 115, Lipase 32 L Microbiology Data (last 24 hrs): 08/06/21 15:17 Blood - Blood Anaerobic Blood Culture - Final Assessment And Plan - Current Problems (Diagnosis) (1) Incontinence in female Onset Date: 06/01/17 Current Visit: No Status: Acute (2) Intermittent self-catheterization of bladder Current Visit: No Status: Acute (3) UTI (urinary tract infection) Onset Date: 07/12/15 Current Visit: No Status: Acute Qualifiers: (4) Lactic acidosis Current Visit: Yes Status: Acute (5) Hypokalemia Current Visit: No Status: Acute - Plan Continue IV meropenem for history of ESBL E. coli. Follow urine culture and blood culture. Continue home antihypertensives. Resume home medications for chronic pain. Lactic acid is elevated. Hydrate with normal saline. Correct potassium. Patient want to continue self catheterization during this hospital stay. She declined Franco catheter.
[2021-08-08] MEDS ORDERED: DIPHENHYDRAMINE 25 MG TAB/CAP ONE (00:31)
[2021-08-08] MEDS ORDERED: OXYCODONE HCL 5 MG TAB ONE ×2 (00:36→12:13)
[2021-08-08] MEDS ORDERED: MORPHINE 2 MG/ML SYR ONE ×2 (03:04→09:19)
[2021-08-08] MEDS ORDERED: Meropenem 500 MG VIAL IV ONE ×3 (03:04→09:11)
[2021-08-08] MEDS ORDERED: NA CHLORIDE 0.9% 0 ML ONE (03:05)
[2021-08-08] MEDS ORDERED: NA CHLORIDE 0.9% 1,000 ML ONE (03:05)
[2021-08-08] MEDS: Meropenem 500 MG/100 ML BAG IV SCH ×2 (03:11→09:00)
[2021-08-08] MEDS: NA CHLORIDE 0.9% 1,000 ML IV SCH (03:11)
[2021-08-08] MEDS: MORPHINE 2 MG/ML SYR IV PRN ×2 (03:11→09:44)
[2021-08-08] MEDS ORDERED: NA CHLORIDE 0.9% 100 ML ONE ×2 (03:19→09:11)
[2021-08-08] MEDS ORDERED: POTASSIUM CL SA 10 MEQ TAB PO ONE ×3 (06:23→09:36)
[2021-08-08] MEDS: atenoloL 50 MG TAB PO SCH (09:00)
[2021-08-08] MEDS: ENOXAPARIN 40 MG/0.4 ML SQ SCH (09:00)
[2021-08-08] MEDS ORDERED: POTASS/SODIUM PHOSPHATE 1 PKT POWD.PACK PO ONE ×3 (09:00→11:00)
[2021-08-08] MEDS ORDERED: atenoloL 50 MG TAB ONE (09:11)
[2021-08-08] MEDS ORDERED: POTASS/SODIUM PHOSPHATE 1 PKT POWD.PACK ONE (09:11)
[2021-08-08] MEDS ORDERED: ENOXAPARIN 40 MG/0.4 ML SQ ONE (09:12)
[2021-08-08 09:44] VITALS: BP 142/91
[2021-08-08 09:52] VITALS: TEMP 99.1
[2021-08-08 10:24] VITALS: O2SAT 98
[2021-08-08] MEDS ORDERED: INFLUENZA VACCINE (for 6+ mo) 0.5 ML DOSE IMVAC ONE (11:00)
--- NOTE | 2021-08-08 11:44 | P.DS ---
Admission Date: 08/06/21 Discharge Date: 08/08/21 Disposition: ROUTINE DISCHARGE Discharge Condition: FAIR Reason for Admission: Fever and vomiting - Problems (1) Incontinence in female Onset Date: 06/01/17 Current Visit: No Status: Acute (2) Intermittent self-catheterization of bladder Current Visit: No Status: Acute (3) UTI (urinary tract infection) Onset Date: 07/12/15 Current Visit: No Status: Acute Qualifiers: (4) Lactic acidosis Current Visit: Yes Status: Acute (5) Hypokalemia Current Visit: No Status: Acute Brief History of Present Illness: 31-year-old woman with a history of spina bifida and scoliosis, history of hospitalizations for recurrent ESBL UTI presents to the emergency department with a complaint of fever, nausea and vomiting which is her usual presentation for UTI. UA done in the emergency department suggest UTI. Patient noted to be tachycardic, temperature of 100, no leukocytosis and does not meet criteria for sepsis. Patient tested positive for COVID-19. She is stable on room air. She is hospitalized for treatment with IV meropenem. Hospital Course: Patient admitted to the medical floor and treated with IV meropenem due to history of recurrent ESBL UTI. Her urine culture grew Klebsiella sensitive to multiple antibiotics. Blood cultures yielded no growth. Patient was asymptomatic, had good oral intake, afebrile. He is discharged with oral Augmentin according to the urine culture sensitivity. Vital Signs/Physical Exam: Temp Pulse Resp BP Pulse Ox 99.1 F 66 16 142/91 H 100 08/08/21 08:00 08/08/21 09:00 08/08/21 09:44 08/08/21 09:00 08/08/21 09:44 General: Alert, In no apparent distress, Oriented x3 HEENT: Mucous membr. moist/pink Neck: Supple Respiratory: Clear to auscultation bilaterally Cardiovascular: No edema Gastrointestinal: Soft and benign, Non-distended Musculoskeletal: No swelling, Other (Contracted lower extremities) Neurological: Other (Contracted lower extremities. She moves all upper extremities.) Laboratory Data at Discharge: WBC 3.60 K/uL (4.3-10.9) L D 08/07/21 03:38 Hgb 11.2 g/dL (12.0-15.0) L 08/07/21 03:38 Hct 34.4 % (36.0-45.0) L 08/07/21 03:38 Plt Count 226 K/uL (152-406) 08/07/21 03:38 PT 17.1 SECONDS (9.5-12.5) H 08/06/21 15:17 INR 1.48 08/06/21 15:17 APTT 38.1 SECONDS (24.3-36.9) H 08/06/21 15:17 Sodium 141 mmol/L (136-145) 08/07/21 03:38 Potassium Cancelled 08/08/21 13:00 BUN 4 mg/dL (7-18) L 08/07/21 03:38 Creatinine 0.28 mg/dL (0.55-1.3) L 08/07/21 03:38 Glucose 88 mg/dL (74-106) 08/07/21 03:38 Phosphorus 2.4 mg/dL (2.5-4.9) L 08/07/21 03:38 Magnesium 2.0 mg/dL (1.8-2.4) 08/07/21 03:38 Total Bilirubin 0.2 mg/dL (0.2-1.0) 08/06/21 15:17 AST 13 U/L (15-37) L 08/06/21 15:17 ALT 16 U/L (12-78) 08/06/21 15:17 Alkaline Phosphatase 115 U/L (45-117) 08/06/21 15:17 Lipase 32 U/L (73-393) L 08/06/21 15:17 Home Medications: Atenolol [Tenormin] 100 mg PO DAILY 02/17/20 Diphenhydramine [Benadryl*] 50 mg PO BEDTIME PRN PRN 02/17/20 Oxycodone HCl/Acetaminophen [Oxycodone-Acetaminophen 10-325] 1 each PO Q6HP PRN 02/17/20 Meropenem [Merrem 500 MG/100 ML NS IVPB] 500 mg IV Q8HR 14 Days bag 01/05/21 Amox/Clavulanate [Augmentin 875-125 Tab] 1 each PO BID #14 tab 08/08/21 L. Acidophilus/L.bulgaricus [Lactobacillus Tablet] 1 each PO TID #30 tablet 08/08/21 New Medications: Amox/Clavulanate [Augmentin 875-125 Tab] 1 each PO BID #14 tab L. Acidophilus/L.bulgaricus [Lactobacillus Tablet] 1 each PO TID #30 tablet Diet: AHA Activity: Ad jaswinder Followup: Nidia Mason MD [Primary Care Provider] - 1-2 Weeks Time spent managing pt's care (in minutes): 33
[2021-08-08] MEDS ORDERED: ACETAMINOPHEN 325 MG TABLET ONE (12:13)
[2021-08-08] MEDS: OXYCODONE HCL 5 MG TAB PO PRN (12:14)
== END 2021-08-08 15:34 | disposition home or self-care (01) | DRG 689 ==
LOC: ER 13:10 → ERHOLD 17:54 → 2ND 08-07 08:34 → ERHOLD 08-07 08:34
PROVIDERS: ADMIT Internal Medicine; ATTEND Internal Medicine
DX: N39.0 Urinary tract infection, site not specified (principal); U07.1 COVID-19; E87.2 Acidosis; I10 Essential (primary) hypertension; G89.29 Other chronic pain; E87.6 Hypokalemia; K21.9 Gastro-esophageal reflux disease without esophagitis; B96.1 Klebsiella pneumoniae [K. pneumoniae] as the cause of diseases classified elsewhere; R00.0 Tachycardia, unspecified; Z88.1 Allergy status to other antibiotic agents; Z91.040 Latex allergy status; Z79.899 Other long term (current) drug therapy; Z88.8 Allergy status to other drugs, medicaments and biological substances; Z91.048 Other nonmedicinal substance allergy status; Z89.411 Acquired absence of right great toe
CPT/HCPCS: 36415; 51702; 71045; 74176; 76377; 80048; 80076; 81003; 81015; 81025; 83605; 83690; 83735; 84100; 84145; 85025; 85610; 85730; 87040; 87077; 87086; 87088; 87186; 93005; 94760; 96365; 96366; 96375; 99285; J1644; J1650; J2185; J2270; J2405; J7030; J7040; J7050; U0003

== ENCOUNTER 2021-08-12 10:58 | Emergency (ER) | payer OTHER ==
--- OUTSIDE RECORDS SUMMARY | 2021-08-12 11:00 | XMS REPORT | Continuity of Care Document ---
:1990 Author Organization [facility] t Address [address] [place] [address] Care Team Providers Name Role Phone Doctor Unassigned, Name Attending Clinician Unavailable Cl FERRARA, Samanta Attending Clinician Pob, Lab Main Attending Clinician Unavailable EMMANUELTA Attending Clinician Unavailable Musa FERRARA, P Attending Clinician Samanta JEAN Attending Clinician Unavailable Jeff Meraz MD, eKrmit Davila Attending Clinician + Payers Payer Name Policy Type Policy Number Effective Date Expiration Date Marko GALVEZ O [id number] 2018 00:00:00 [facility] [id number] 2017 00:00:00 PLUS Problems Condition Condition Condition Status Onset Resolution Last Treating Co mments Source Name Details Category Date Date Treatment Clinician Date Other Other Disease Active Last [facility] scoliosis, scoliosis, 00:00: t & Plan: of thoracolum thoracolum 00 Resulting Medicin bar region bar region in severe e restricti ve lung disease Sleep-diso Sleep-diso Disease Active Last Tanna bonner rdered rdered - [facility] breathing breathing 00:00: t & Plan: o [...] B aylor e lung e lung 12-01 [facility] disease disease 00:00: t & Plan: of due to due to 00 PFt poor Medicin kyphoscoli kyphoscoli quality, e osis osis patient was very anxious during testing, sig restricti on Alveolar Alveolar Disease Active [facility] r hypoventil hypoventil 12-01 [facility] ation ation 00:00: t & Plan: of 00 High Medicin risk e patient Will check on sleep study 17 weeks 17 weeks Disease Active Last [facility] r gestation gestation 12-01 [facility]men C ollege of of 00:00: t & Plan: of 00 High risk M edicin patient, e will follow closely Sleep-diso Sleep-diso Disease Active Last Tanna aylor rdered rdered 12-01 [facility] breathing breathing 00:00: t & Plan: o [...] Univers DRESSING INGREDI 6-13 ity of 00:00: [place] 00 Medical Branch VANCOMYC DRUG Active ITCHING Univers IN INGREDI 5-25 ity of 00:00: [place] 00 Medical Branch SULFA Drug Active Rash Univers (SULFONA Class 4-13 ity of MIDE 00:00: [place] ANTIBIOT 00 Medical ICS) Branch Sulfa Propensi Active Rash [facility] Antibiot ty to 4-13 [facility] ics adverse 00:00: of reaction 00 Medicin s to e drug Latex Propensi Active Rash [facility] ty to 02-25 College adverse 00:00: of reaction 00 Medicin s to e substanc e LATEX DRUG Active High Rash Univers INGREDI 02-25 ity of 00:00: [place] 00 Medical Branch SULFAMET DRUG Active Hives Univers HOXAZOLE 02-25 ity of (BULK) 00:00: [place] 00 Medical Branch Sulfamet Propensi Active Rash [facility] hoxazole ty to 02-25 [facility] W/Trimet adverse 00:00: of hoprim reaction 00 Medicin s to e drug Social History Social Habit Start Date Stop Date Quantity Comments Source Sex Assigned At [facility] Co llege of Medicine History [facility] Alcohol Std Drinks of Med icine History [facility] Alcohol Binge of Medicine Alcohol intake 2019-08-29 2019-08-29 Lifetime [facility] Col lege 00:00:00 00:00:00 non-drinker of Medicine (finding) History [facility] 2018-11-25 2018-11-25 1 [facility] Alcohol Frequency 00:00:00 00:00:00 of [facility] MiCursada Smoking Status Start Date Stop Date Source Never smoker [facility] o f Medicine Medications Ordered Filled Start Stop Current Ordering Indication Dosage Frequency Signature Comments Components Source Medication Medication Date Date Medication? Clinician (SIG) Name Name dicyclomine 0 Yes 10mg Take 10 mg [facility] (BENTYL) 10 24 by mouth. Col lege MG capsule 19:29: of 04 Medicin e ondansetron 2019-0 Yes [facility] (ZOFRAN) 4 - [facility] MG tablet 00:00: of Medicin e promethazin 2019-0 Yes [facility] e 08-07 [facility] (PHENERGAN) 00:00: of 25 MG 00 Medicin tablet e diphenhydrA Yes 50mg Take 50 mg [facility] MINE 9-[address] [facility] (BENADRYL) 16:23: daily. of 25 MG 12 Medicin capsule e diphenhydrA Yes 50mg Take 50 mg [facility] MINE 9-[address] [facility] (BENADRYL) 16:23: daily. of 25 MG 12 Medicin capsule e nystatin-tr Yes [id number] Apply to [facility] iamcinolone 12-12 bilateral Col [facility]ge (MYCOLOG) 00:00: clean dry of ointment 00 groin BID Medici n x 7 days e nystatin-tr Yes [id number] Apply to [facility] iamcinolone 12-12 bilateral Col [facility]ge (MYCOLOG) 00:00: clean dry of ointment 00 groin BID Medici n x 7 days e oxybutynin 2019- No [id number] 10mg Take 1 Tab [place] (DITROPAN-X 12-12 by mouth Col [facility]ge L) 10 MG CR 00:00: 00:00 daily. of tablet 00 :00 Medicin e nitrofurant 2019- No 1{capsu Take 1 Cap [place] oin, 11-18 le} by mouth [facility] macrocrysta 00:00: 00:00 daily. of l-monohydra 00 :00 Medicin te, e (MACROBID) 100 MG capsule Prenat-Fe 2019- No 1{tbl} Take 1 Tab [facility] Poly-Methfo 11-18 by mouth Col lege l-FA-DHA 00:00: 00:00 daily. of (VITAFOL 00 :00 Medicin ULTRA) e 29-0.6-0.4- 200 MG CAPS DICLEGIS 2019- No 3{tbl} Take 3 [facility] or 10-10 MG -04-[address] [facility] TBEC 00:00: 00:00 mouth of 00 :00 daily. 2 Medicin tablets in e am and 1 tab in PM Cholecalcif Yes 1{tbl} Take 1 Tab [place] dorene 3-[address] [facility] (VITAMIN 00:00: daily. of D-3) 1000 00 Medicin units CAPS e Cholecalcif 2018- Yes 1{tbl} Take 1 Tab [facility] dorene 3-[address] [facility] (VITAMIN 00:00: daily. of D-3) 1000 00 [...] per tablet labetalol Yes 200mg Take 200 [place] tsering (NORMODYNE) 2-15 mg by College 200 MG 00:00: mouth of tablet 00 every 12 Medicin hours. e labetalol Yes 200mg Take 200 [place] tsering (NORMODYNE) 2-15 mg by College 200 MG 00:00: mouth of tablet 00 every 12 Medicin hours. e atenolol 2016-08 Yes DAILY [facility] (TENORMIN) 2-08 College 50 MG 00:00: of tablet 00 Medicin e Vital Signs Vital Name Observation Time Observation Value Comments Source Systolic blood 2019-08-29 19:27:00 135 mm[Hg] [facility] pressure Medicine Diastolic blood 2019-08-29 19:27:00 95 mm[Hg] [facility] pressure Medicine Heart rate 2019-08-29 19:27:00 93 /min [facility] Body temperature 2019-08-29 19:27:00 36.67 Pat[facility] Body weight 2019-08-29 19:27:00 31.752 kg [facility] BMI 2019-08-29 19:27:00 21.36 kg/m2 [facility] Systolic blood 2019-08-29 19:27:00 135 mm[Hg] [facility] pressure Medicine Diastolic blood 2019-08-29 19:27:00 95 mm[Hg] [facility] Heart rate 2019-08-29 19:27:00 93 /min [facility] ollege of Medicine Body temperature 2019-08-29 19:27:00 36.67 Pati [facility] Body weight 2019-08-29 19:27:00 31.752 kg [facility] ol[facility] of Medicine BMI 2019-08-29 19:27:00 21.36 kg/m2 [facility] ol[facility] of Medicine Systolic blood 2019-04-29 16:21:00 118 mm[Hg] [facility] pressure Medicine Diastolic blood 2019-04-29 16:21:00 79 mm[Hg] [facility] Heart rate 2019-04-29 16:21:00 95 /min [facility] ol[facility] of Medicine Body height 2019-04-29 16:21:00 121.9 cm [facility] ol[facility] of Medicine Body weight 2019-04-29 16:21:00 39.463 kg [facility] of Medicine BMI 2019-04-29 16:21:00 26.55 kg/m2 [facility] ol[facility] of Medicine Systolic blood 2019-04-29 16:21:00 118 mm[Hg] [facility] Medicine Diastolic blood 2019-04-29 16:21:00 79 mm[Hg] [facility] Heart rate 2019-04-29 16:21:00 95 /min [facility] ol[facility] of Medicine Body height 2019-04-29 16:21:00 121.9 cm [facility] ol[facility] of Medicine Body weight 2019-04-29 16:21:00 39.463 kg [facility] ol[facility] of Medicine BMI 2019-04-29 16:21:00 26.55 kg/m2 [facility] ollege of [facility] Procedures This patient has no known procedures. Plan of Care Planned Activity Planned Date Details Comments Source Future Scheduled TETANUS SHOT [facility] Gopal ege Test (ADULT) [code = of Medicine TETANUS SHOT (ADULT)] Future Scheduled HIV SCREENING [code [facility] Test = HIV SCREENING] of Medicine Future Scheduled CERVICAL CANCER [facility] C ollege Test SCREENING 3 YEAR of Medicine FOLLOW UP [code = CERVICAL CANCER SCREENING 3 YEAR FOLLOW UP] Future Scheduled FLU VACCINE > 6 [place] C ollege Test MONTHS [code = FLU of Medici ne VACCINE > 6 MONTHS] Future Scheduled URINALYSIS AUTO Ordered: 08/29/2019 [facility] [employer] [employer] Test W/SCOPE [code = of Medicine 04135-1] Future Scheduled TETANUS SHOT [facility] Gopal ege Test (ADULT) [code = of Medicine TETANUS SHOT (ADULT)] Future Scheduled BMI FOLLOW UP PLAN [employer] Test [code = BMI FOLLOW of Medici ne UP PLAN] Future Scheduled HIV SCREENING [code [employer] Test = HIV SCREENING] of Medicine Future Scheduled CERVICAL CANCER [facility] C ollege Test SCREENING 3 YEAR of Medicine FOLLOW UP [code = CERVICAL CANCER SCREENING 3 YEAR FOLLOW UP] Future Scheduled FLU VACCINE > 6 [facility] C ollege Test MONTHS [code = FLU of Medici ne VACCINE > 6 MONTHS] Future Scheduled VIDEO URODYNAMICS 1 Occurrences [employer] Test [code = 14456] starting 08/29/2019 of Med icine until 08/29/2020 Future Scheduled US RENAL BILATERAL 1 Occurrences [employer] Test [code = 99162] starting 08/29/2019 of Med icine until 08/29/2020 Future Scheduled CYSTOSCOPY [code = 1 Occurrences [employer] Test [id number]] starting 08/29/2019 of Medic ine until 08/29/2020 Future Scheduled CULTURE, 2 Occurrences [facility] Col lege Test URINE/SENSITIVITY starting 08/29/2019 of Medicine ON ALL [code = until 08/28/2020 92550-2] Encounters Start End Encounter Admission Attending Care Care Encounter Source Date/Time Date/Time Type Type Clinicians Facility Department ID 2021-01-10 2021-01-10 Outpatient [facility] [id number] Univers 00:00:00 00:00:00 ity [facility] 2020-11-17 2020-11-17 Orders Doctor HURST 1.2.840.114 [id number] 00:00:00 00:00:00 Only Unassigned, JESSICA [id number] [facility] 4.2.7.2.686 [id number] [id number] 2020-11-08 2020-11-08 Outpatient [facility] [id number] Univers 00:00:00 00:00:00 ity [facility] 2020-11-08 2020-11-08 Orders Doctor NATALI Tinoco2.840.114 [id number] 00:00:00 00:00:00 Only Unassigned, JESSICA [id number] [facility] 4.2.7.2.686 [id number] 009 2020-10-11 2020-10-11 [facility] 1.2.840.114 [id number] 00:00:00 00:00:00 [facility] [id number] [place] 4.2.7.2.686 Professio [phone] nal 0[address] One 2020-10-10 2020-10-10 Orders Doctor NATALI 1.2.840.114 [id number] 00:00:00 00:00:00 Only Unassigned, JESSICA [id number] [facility] 4.2.7.2.686 [id number] [id number] 2020-09-17 2020-09-17 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 [facility] 1.2.840.114 [id number] 16:26:39 16:41:39 Visit Lab Main [place] [id number] [place] 4.2.7.2.686 Professio [phone] nal 353 Building 2020-09-17 2020-09-17 Outpatient R [facility] [id number] Univers 16:30:00 16:30:00 [id number] [facility] 2020-09-17 2020-09-17 [facility] [id number] [facility] 16:30:00 16:30:00 SCARLET [facility] 2020-09-17 2020-09-17 Orders Doctor NATALI 1.2.840.114 [id number] 00:00:00 00:00:00 Only Unassigned, JESSICA [id number] [facility] 4.2.7.2.686 [id number] [id number] 2020-07-05 2020-07-05 Outpatient R [facility] [id number] Univers 14:30:00 14:30:00 [facility] 2020-07-05 2020-07-05 [facility] [id number] Univers 14:30:00 14:30:00 SCARLET [facility] 2020-07-05 2020-07-05 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 Erika Adams [facility] 1.2.840.114 [id number] 14:05:50 14:20:50 Visit Lab Main [place] [id number] [place] 4.2.7.2.686 [facility] [phone] [facility] 353 [facility] 2020-07-05 2020-07-05 Orders Doctor HURST 1.2.840.114 [id number] 00:00:00 00:00:00 Only Unassigned, JESSICA 350.1.13.10 [facility] 4.2.7.2.686 [id number] 2020-05-17 2020-05-17 Orders Doctor HURST 1.2.840.114 [id number] 00:00:00 00:00:00 Only Unassigned, JESSICA 350.1.13.10 [facility] 4.2.7.2.686 [id number] 2020-03-18 2020-03-18 Orders Doctor HURST 1.2.840.114 [id number] 00:00:00 00:00:00 Only Unassigned, JESSICA 350.1.13.10 [facility] 4.2.7.2.686 [id number] 2020-03-09 2020-03-09 Orders Doctor HURST 1.2.840.114 [id number] 00:00:00 00:00:00 Only Unassigned, JESSICA 350.1.13.10 [facility] 4.2.7.2.686 [id number] [id number] 2020-01-05 2020-01-05 Orders Doctor HURST 1.2.840.114 [id number] 00:00:00 00:00:00 Only Unassigned, JESSICA 350.1.13.10 [facility] 4.2.7.2.686 [id number] 2019-12-18 2019-12-18 Telephone Cl [facility] 1.2.840.114 [id number] 00:00:00 00:00:00 Lewisethansharmaine Valladares 350.1.13.10 [place] 4.2.7.2.686 Profcheryl [phone] [facility] 044 [facility] 2019-12-16 2019-12-16 [facility] 1.2.840.114 [id number] 00:00:00 00:00:00 [place]ondiful [place] 350.1.13.10 [place] 4.2.7.2.686 Professio [phone] [address] 2019-12-09 2019-12-09 Orders Doctor NATALI 1.2.840.114 [id number] 00:00:00 00:00:00 Only Unassigned, JESSICA 350.1.13.10 [facility] 4.2.7.2.686 [id number] 009 2019-11-24 2019-11-24 [facility]phone [facility] 1.2.840.114 [id number] 00:00:00 00:00:00 [place]ondiful A [place] 350.1.13.10 [place] 4.2.7.2.686 Professio [phone] [address] 2019-11-24 2019-11-24 Orders Doctor NATALI 1.2.840.114 [id number] 00:00:00 00:00:00 Only Unassigned, JESSICA 350.1.13.10 [facility] 4.2.7.2.686 [id number] 009 2019-11-07 2019-11-07 Orders Doctor NATALI 1.2.840.114 [id number] 00:00:00 00:00:00 Only Unassigned, JESSICA 350.1.13.10 [facility] 4.2.7.2.686 [id number] 009 2019-11-05 2019-11-05 [facility]phone [facility] 1.2.840.114 [id number] 00:00:00 00:00:00 [place]iful A [place] 350.1.13.10 [place] 4.2.7.2.686 Professio [phone] [address] 2019-10-30 2019-10-30 [facility] 1.2.840.114 [id number] 00:00:00 00:00:00 [facility] 350.1.13.10 [place] 4.2.7.2.686 Professio [phone] [place] [address] [address] 2019-10-30 2019-10-30 Orders Doctor NATALI 1.2.840.114 [id number] 00:00:00 00:00:00 Only Unassigned, JESSICA 350.1.13.10 [place] [facility] 4.2.7.2.686 [id number] 009 2019-10-22 2019-10-22 Telephone Cl [facility] 1.2.840.114 [id number] 00:00:00 00:00:00 [facility] 350.1.13.10 [place] 4.2.7.2.686 Professio [phone] [address] One 2019-10-20 2019-10-20 Telephone Cl [facility] 1.2.840.114 [id number] 00:00:00 00:00:00 [facility] 350.1.13.10 [place] 4.2.7.2.686 Professio [phone] [address] 2019-10-15 2019-10-15 Elkins Cl [facility] 1.2.840.114 [id number] 00:00:00 00:00:00 [facility] 350.1.13.10 [place] 4.2.7.2.686 Professio [phone] [address] 2019-10-08 2019-10-08 Eloisa Jean [facility] 1.2.840.114 [id number] 00:00:00 00:00:00 [facility] 350.1.13.10 [place] 4.2.7.2.686 Professio [phone] [address] One 2019-08-29 2019-08-29 Office RAS VigilTrish 1.2.840.114 [id number] 13:02:13 13:12:13 Visit Christopher AMBULATOR 350.1.13.21 P Y [id number] [facility] 2019-08-29 2019-08-29 Office RAS VigilTrish 1.2.840.[id number] [place] [address] 13:02:13 13:12:13 Visit Christopher AMBULATOR 350.1.13.21 [facility] P Y 0.2.7.2.686 leobardo [phone] [facility] 300 e 2019-08-15 2019-08-15 Outpatient Patrick JEAN [facility] [id number] Univers 15:00:00 15:09:49 WONDIFUL ity o f [facility] 2019-05-15 2019-05-15 Outpatient Patrick JEAN [facility] [id number] Univers 15:00:00 15:59:45 WONDIFUL ity o f [facility] 2019-04-29 2019-04-29 Office Jeff SHIRLEY [id number] 10:53:12 12:18:36 Visit Kt, AMBULATOR 350.1.13.21 Rasheed Kermit Y 0.2.7.2.686 [place] [phone] [facility] 2019-04-29 2019-04-29 Office Jeff SHIRLEY [id number] [id number] [facility] 10:53:12 12:18:36 Visit Kt, AMBULATOR 350.1.13.21 College Rasheed Carmen Y 0.2.7.2.686 of [place] [phone] [facility] 800 e 2019-04-21 2019-04-21 Outpatient Patrick JEAN [facility] [id number] Univers 16:30:00 16:55:27 WONDIFUL ity o f [facility] Results This patient has no known results.
--- NOTE | 2021-08-12 12:16 | ER ---
Nurse's Notes [facility] Name: Shari Estrella Age: 31 yrs Sex: Female : 1990 Arrival Date: 08/12/2021 Time: 11:01 Bed Waiting Private MD: Nidia Mason Diagnosis: ED Course: 08/12 11:01 Patient arrived in ED. am2 11:01 Nidia Mason MD is Private Physician. am2 Administered Medications: No medications were administered Outcome: 12:14 Eloped from waiting room, before seeing physician Time discovered patient gone: August tw2021 at 12:14 12:14 unknown 12:16 Patient left the ED. tw2 Signatures: Zita Carrera RN RN tw2 Zenaida Maloney am2
== END 2021-08-12 12:16 | disposition left against medical advice (07) ==
LOC: ER 10:58
DX: Z02.89 Encounter for other administrative examinations (principal)

== ENCOUNTER 2021-09-24 20:13 | Emergency (ER) | payer OTHER ==
--- OUTSIDE RECORDS SUMMARY | 2021-09-24 20:17 | XMS REPORT | Continuity of Care Document ---
:1990 Author Organization [facility] t Address [address] [place] [address] Care Team Providers Name Role Phone Doctor Unassigned, Name Attending Clinician Unavailable Cl FERRARA, Samanta Attending Clinician Pob, Lab Main Attending Clinician Unavailable EMMANUELTA Attending Clinician Unavailable Musa FERRARA, P Attending Clinician Samanta JEAN Attending Clinician Unavailable Jeff Meraz MD, Kermit Davila Attending Clinician + Payers Payer Name Policy Type Policy Number Effective Date Expiration Date Marko GALVEZ O [id number] 2018 00:00:00 [facility] [id number] 2017 00:00:00 PLUS Problems Condition Condition Condition Status Onset Resolution Last Treating Co mments Source Name Details Category Date Date Treatment Clinician Date Other Other Disease Active Last [facility] scoliosis, scoliosis, 00:00: t & Plan: of thoracolum thoracolum 00 Resulting Medicin bar region bar region in severe e restricti ve lung disease Sleep-diso Sleep-diso Disease Active Last Tanna bonner rdered rdered - Assessmen [place] breathing breathing 00:00: t & Plan: o [...] B aylor e lung e lung 12-01 [facility] disease disease 00:00: t & Plan: of due to due to 00 PFt poor Medicin kyphoscoli kyphoscoli quality, e osis osis patient was very anxious during testing, sig restricti on Alveolar Alveolar Disease Active [facility] r hypoventil hypoventil 12-01 [facility] ation ation 00:00: t & Plan: of 00 High Medicin risk e patient Will check on sleep study 17 weeks 17 weeks Disease Active Last [facility] r gestation gestation 12-01 Assessmen C ollege of of 00:00: t & Plan: of 00 High risk M edicin patient, e will follow closely Sleep-diso Sleep-diso Disease Active Last Tanna aylor rdered rdered 12-01 [facility] breathing breathing 00:00: t & Plan: [...] Univers DRESSING INGREDI 6-13 ity of 00:00: [place] 00 Medical Branch VANCOMYC DRUG Active ITCHING Univers IN INGREDI 5-25 ity of 00:00: [place] 00 Medical Branch SULFA Drug Active Rash Univers (SULFONA Class 4-13 ity of MIDE 00:00: [place] ANTIBIOT 00 Medical ICS) Branch Sulfa Propensi Active Rash [facility] Antibiot ty to 4-13 [place] ics adverse 00:00: of reaction 00 Medicin s to e drug Latex Propensi Active Rash [facility] ty to 02-25 College adverse 00:00: of reaction 00 Medicin s to e substanc e LATEX DRUG Active High Rash Univers INGREDI 02-25 ity of 00:00: [place] 00 Medical Branch SULFAMET DRUG Active Hives Univers HOXAZOLE 02-25 ity of (BULK) 00:00: [place] 00 Medical Branch Sulfamet Propensi Active Rash [facility] hoxazole ty to 02-25 [place] W/Trimet adverse 00:00: of hoprim reaction 00 Medicin s to e drug Social History Social Habit Start Date Stop Date Quantity Comments Source Sex Assigned At [facility] Co llege of Medicine History [facility] Alcohol Std Drinks of Med icine History [facility] Alcohol Binge of Medicine Alcohol intake 2019-08-29 2019-08-29 Lifetime [facility] Col lege 00:00:00 00:00:00 non-drinker of Medicine (finding) History [facility] 2018-11-25 2018-11-25 1 [facility] Alcohol Frequency 00:00:00 00:00:00 of [facility] [employer] Smoking Status Start Date Stop Date Source Never smoker [facility] o f Medicine Medications Ordered Filled Start Stop Current Ordering Indication Dosage Frequency Signature Comments Components Source Medication Medication Date Date Medication? Clinician (SIG) Name Name dicyclomine 0 Yes 10mg Take 10 mg [facility] (BENTYL) 10 24 by mouth. Col lege MG capsule 19:29: of 04 Medicin e ondansetron 2019-0 Yes [facility] (ZOFRAN) 4 - [place] MG tablet 00:00: of Medicin e promethazin 2019-0 Yes [facility] e 08-07 [place] (PHENERGAN) 00:00: of 25 MG 00 Medicin tablet e diphenhydrA Yes 50mg Take 50 mg [facility] MINE 9-24 by mouth [place] (BENADRYL) 16:23: daily. of 25 MG 12 Medicin capsule e diphenhydrA Yes 50mg Take 50 mg [facility] MINE 9-24 by mouth [place] (BENADRYL) 16:23: daily. of 25 MG 12 Medicin capsule e nystatin-tr Yes [id number] Apply to [facility] iamcinolone 12-12 bilateral Col [facility]ge (MYCOLOG) 00:00: clean dry of ointment 00 groin BID Medici n x 7 days e nystatin-tr Yes [id number] Apply to [facility] iamcinolone 12-12 bilateral Col lege (MYCOLOG) 00:00: clean dry of ointment 00 groin BID Medici n x 7 days e oxybutynin 2019- No [id number] 10mg Take 1 Tab [place] (DITROPAN-X 12-12 by mouth Col lege L) 10 MG CR 00:00: 00:00 daily. of tablet 00 :00 Medicin e nitrofurant 2019- No 1{capsu Take 1 Cap [place] oin, 11-18 le} by mouth [place] macrocrysta 00:00: 00:00 daily. of l-monohydra 00 :00 Medicin te, e (MACROBID) 100 MG capsule Prenat-Fe 2019- No 1{tbl} Take 1 Tab [place] Poly-Methfo 11-18 by mouth Col lege l-FA-DHA 00:00: 00:00 daily. of (VITAFOL 00 :00 Medicin ULTRA) e 29-0.6-0.4- 200 MG CAPS DICLEGIS 2019- No 3{tbl} Take 3 [facility] or 10-10 MG -04-29 Tabs by [place] TBEC 00:00: 00:00 mouth of 00 :00 daily. 2 Medicin tablets in e am and 1 tab in PM Cholecalcif Yes 1{tbl} Take 1 Tab [facility] dorene 3-12 by mouth [place] (VITAMIN 00:00: daily. of D-3) 1000 00 Medicin units CAPS e Cholecalcif 2018- Yes 1{tbl} Take 1 Tab [place] dorene 3-12 by mouth [place] (VITAMIN 00:00: daily. of D-3) 1000 00 [...] per tablet labetalol Yes 200mg Take 200 [place] tsering (NORMODYNE) 2-15 mg by College 200 MG 00:00: mouth of tablet 00 every 12 Medicin hours. e labetalol Yes 200mg Take 200 [place] tsering (NORMODYNE) 2-15 mg by College 200 MG 00:00: mouth of tablet 00 every 12 Medicin hours. e atenolol 2016-08 Yes DAILY [place] (TENORMIN) 2-08 College 50 MG 00:00: of tablet 00 Medicin e Vital Signs Vital Name Observation Time Observation Value Comments Source Systolic blood 2019-08-29 19:27:00 135 mm[Hg] [facility] pressure Medicine Diastolic blood 2019-08-29 19:27:00 95 mm[Hg] [facility] pressure Medicine Heart rate 2019-08-29 19:27:00 93 /min [facility] Body temperature 2019-08-29 19:27:00 36.67 Pati [facility] Body weight 2019-08-29 19:27:00 31.752 kg [facility] BMI 2019-08-29 19:27:00 21.36 kg/m2 [facility] Systolic blood 2019-08-29 19:27:00 135 mm[Hg] [facility] pressure Medicine Diastolic blood 2019-08-29 19:27:00 95 mm[Hg] [facility] Medicine Heart rate 2019-08-29 19:27:00 93 /min [facility] ollege of Medicine Body temperature 2019-08-29 19:27:00 36.67 Pati [facility] Body weight 2019-08-29 19:27:00 31.752 kg [facility] ollege of Medicine BMI 2019-08-29 19:27:00 21.36 kg/m2 [facility] ollege of Medicine Systolic blood 2019-04-29 16:21:00 118 mm[Hg] [facility] pressure Medicine Diastolic blood 2019-04-29 16:21:00 79 mm[Hg] [facility] Medicine Heart rate 2019-04-29 16:21:00 95 /min [facility] ollege of Medicine Body height 2019-04-29 16:21:00 121.9 cm [facility] ollege of Medicine Body weight 2019-04-29 16:21:00 39.463 kg [facility] ollege of Medicine BMI 2019-04-29 16:21:00 26.55 kg/m2 [facility] ollege of Medicine Systolic blood 2019-04-29 16:21:00 118 mm[Hg] [facility] Medicine Diastolic blood 2019-04-29 16:21:00 79 mm[Hg] [facility] Medicine Heart rate 2019-04-29 16:21:00 95 /min [facility] ollege of Medicine Body height 2019-04-29 16:21:00 121.9 cm [facility] ollege of Medicine Body weight 2019-04-29 16:21:00 39.463 kg [facility] ollege of Medicine BMI 2019-04-29 16:21:00 26.55 kg/m2 [facility] ollege of [facility] Procedures This patient has no known procedures. Plan of Care Planned Activity Planned Date Details Comments Source Future Scheduled TETANUS SHOT [facility] Gopal ege Test (ADULT) [code = of Medicine TETANUS SHOT (ADULT)] Future Scheduled HIV SCREENING [code [facility] Test = HIV SCREENING] of Medicine Future Scheduled CERVICAL CANCER [facility] C ollege Test SCREENING 3 YEAR of Medicine FOLLOW UP [code = CERVICAL CANCER SCREENING 3 YEAR FOLLOW UP] Future Scheduled FLU VACCINE > 6 [place] C ollege Test MONTHS [code = FLU of Medici ne VACCINE > 6 MONTHS] Future Scheduled URINALYSIS AUTO Ordered: 08/29/2019 [facility] [employer] Test W/SCOPE [code = of Medicine 70860-9] Future Scheduled TETANUS SHOT [facility] Gopal ege Test (ADULT) [code = of Medicine TETANUS SHOT (ADULT)] Future Scheduled BMI FOLLOW UP PLAN [employer] Test [code = BMI FOLLOW of Medici ne UP PLAN] Future Scheduled HIV SCREENING [code [employer] Test = HIV SCREENING] of Medicine Future Scheduled CERVICAL CANCER [facility] C ollege Test SCREENING 3 YEAR of Medicine FOLLOW UP [code = CERVICAL CANCER SCREENING 3 YEAR FOLLOW UP] Future Scheduled FLU VACCINE > 6 [facility] C ollege Test MONTHS [code = FLU of Medici ne VACCINE > 6 MONTHS] Future Scheduled VIDEO URODYNAMICS 1 Occurrences [employer] Test [code = 99525] starting 08/29/2019 of Med icine until 08/29/2020 Future Scheduled US RENAL BILATERAL 1 Occurrences [employer] Test [code = 05568] starting 08/29/2019 of Med icine until 08/29/2020 Future Scheduled CYSTOSCOPY [code = 1 Occurrences [employer] Test [id number]] starting 08/29/2019 of Medic ine until 08/29/2020 Future Scheduled CULTURE, 2 Occurrences [facility] Col lege Test URINE/SENSITIVITY starting 08/29/2019 of Medicine ON ALL [code = until 08/28/2020 87011-3] Encounters Start End Encounter Admission Attending Care Care Encounter Source Date/Time Date/Time Type Type Clinicians Facility Department ID 2021-01-10 2021-01-10 Outpatient [facility] [id number] Univers 00:00:00 00:00:00 ity [facility] 2020-11-17 2020-11-17 Orders Doctor HURST 1.2.840.114 [id number] 00:00:00 00:00:00 Only Unassigned, JESSICA [id number] [place] [facility] [id number] [id number] [id number] 2020-11-08 2020-11-08 Outpatient [facility] [id number] Univers 00:00:00 00:00:00 ity [facility] 2020-11-08 2020-11-08 Orders Doctor NATALI Tinoco2.840.114 [id number] 00:00:00 00:00:00 Only Unassigned, JESSICA [id number] [place] 4.2.7.2.686 [id number] [id number] 2020-10-11 2020-10-11 [facility]114 [id number] 00:00:00 00:00:00 [facility] [id number] [place] [id number] Professio [phone] nal [address] One 2020-10-10 2020-10-10 Orders Doctor NATALI 1.2.840.114 [id number] 00:00:00 00:00:00 Only Unassigned, JESSICA [id number] [facility] 4.2.7.2.686 [id number] [id number] 2020-09-17 2020-09-17 Metallurgy Teacher Bryan [facility] 1.2.840.114 [id number] 16:26:39 16:41:39 Visit Lab Main [place] [id number] [place] 4.2.7.2.686 Professio [phone] nal 353 Building 2020-09-17 2020-09-17 Outpatient R [facility] [id number] Univers 16:30:00 16:30:00 [id number] [facility] 2020-09-17 2020-09-17 [facility] [id number] [facility] 16:30:00 16:30:00 SCARLET [facility] 2020-09-17 2020-09-17 Orders Doctor NATALI 1.2.840.114 [id number] 00:00:00 00:00:00 Only Unassigned, JESSICA [id number] [facility] 4.2.7.2.686 [id number] [id number] 2020-07-05 2020-07-05 Outpatient R [facility] [id number] Univers 14:30:00 14:30:00 [facility] 2020-07-05 2020-07-05 [facility] [id number] Univers 14:30:00 14:30:00 SCARLET [facility] 2020-07-05 2020-07-05 Metallurgy Teacher Erika Adams [facility] 1.2.840.114 [id number] 14:05:50 14:20:50 Visit Lab Main [place] [id number] [place] 4.2.7.2.686 [place]cheryl [phone] counts include 234 beds at the [facility] 353 [facility] 2020-07-05 2020-07-05 Orders Doctor HURST 1.2.840.114 [id number] 00:00:00 00:00:00 Only Unassigned, JESSICA [id number] [facility] 4.2.7.2.686 [id number] 2020-05-17 2020-05-17 Orders Doctor HURST 1.2.840.114 [id number] 00:00:00 00:00:00 Only Unassigned, JESSICA 350.1.13.10 [facility] 4.2.7.2.686 [id number] 2020-03-18 2020-03-18 Orders Doctor HURST 1.2.840.114 [id number] 00:00:00 00:00:00 Only Unassigned, JESSICA 350.1.13.10 [facility] 4.2.7.2.686 [id number] 2020-03-09 2020-03-09 Orders Doctor HURST 1.2.840.114 [id number] 00:00:00 00:00:00 Only Unassigned, JESSICA 350.1.13.10 [facility] 4.2.7.2.686 [id number] [id number] 2020-01-05 2020-01-05 Orders Doctor HURST 1.2.840.114 [id number] 00:00:00 00:00:00 Only Unassigned, JESSICA 350.1.13.10 [facility] 4.2.7.2.686 [id number] 2019-12-18 2019-12-18 Telephone Cl [facility] 1.2.840.114 [id number] 00:00:00 00:00:00 Lewisethansharmaine Valladares 350.1.13.10 [place] 4.2.7.2.686 Profcheryl [phone] counts include 234 beds at the [facility] 044 [facility] 2019-12-16 2019-12-16 [facility] 1.2.840.114 [id number] 00:00:00 00:00:00 [place] 350.1.13.10 [place] 4.2.7.2.686 Professio [phone] [address] 2019-12-09 2019-12-09 Orders Doctor NATALI 1.2.840.114 [id number] 00:00:00 00:00:00 Only Unassigned, JESSICA 350.1.13.10 [facility] 4.2.7.2.686 [id number] [id number] 2019-11-24 2019-11-24 [facility] 1.2.840.114 [id number] 00:00:00 00:00:00 [place] 350.1.13.10 [place] 4.2.7.2.686 Professio [phone] [address] 2019-11-24 2019-11-24 Orders Doctor NATALI 1.2.840.114 [id number] 00:00:00 00:00:00 Only Unassigned, JESSICA 350.1.13.10 [facility] 4.2.7.2.686 [id number] [id number] 2019-11-07 2019-11-07 Orders Doctor NATALI 1.2.840.114 [id number] 00:00:00 00:00:00 Only Unassigned, JESSICA 350.1.13.10 [facility] 4.2.7.2.686 [id number] [id number] 2019-11-05 2019-11-05 [facility] 1.2.840.114 [id number] 00:00:00 00:00:00 [place] 350.1.13.10 [place] 4.2.7.2.686 Professio [phone] [address] 2019-10-30 2019-10-30 [facility] 1.2.840.114 [id number] 00:00:00 00:00:00 [facility] 350.1.13.10 [place] 4.2.7.2.686 Professio [phone] [place] [address] [address] 2019-10-30 2019-10-30 Orders Doctor NATALI 1.2.840.114 [id number] 00:00:00 00:00:00 Only Unassigned, JESSICA 350.1.13.10 [place] [facility] 4.2.7.2.686 [id number] [id number] 2019-10-22 2019-10-22 Telephone Cl [facility] 1.2.840.114 [id number] 00:00:00 00:00:00 [facility] 350.1.13.10 [place] 4.2.7.2.686 Professio [phone] [address] One 2019-10-20 2019-10-20 Telephone Cl [facility] 1.2.840.114 [id number] 00:00:00 00:00:00 [facility] 350.1.13.10 [place] 4.2.7.2.686 Professio [phone] [address] 2019-10-15 2019-10-15 [place] Cl [facility] 1.2.840.114 [id number] 00:00:00 00:00:00 [facility] 350.1.13.10 [place] 4.2.7.2.686 Professio [phone] [address] 2019-10-08 2019-10-08 Eloisa Jean [facility] 1.2.840.114 [id number] 00:00:00 00:00:00 [facility] 350.1.13.10 [place] 4.2.7.2.686 Professio [phone] [address] One 2019-08-29 2019-08-29 Office RAS VigilTrish 1.2.840.114 [id number] 13:02:13 13:12:13 Visit Christopher AMBULATOR 350.1.13.21 P Y 0.2.7.2.686 [id number] [facility] 2019-08-29 2019-08-29 Office RAS VigilTrish 1.2.840.[id number] [place] [address] 13:02:13 13:12:13 Visit Christopher AMBULATOR 350.1.13.21 [place] P Y 0.2.7.2.686 leobardo [phone] [facility] 300 e 2019-08-15 2019-08-15 Outpatient Patrick JEAN [facility] [id number] Univers 15:00:00 15:09:49 WONDIFUL ity o f [facility] 2019-05-15 2019-05-15 Outpatient Patrick JEAN [facility] [id number] Univers 15:00:00 15:59:45 WONDIF[facility] ity o f [facility] 2019-04-29 2019-04-29 Office Jeff SHIRLEY [id number] 10:53:12 12:18:36 Visit Kt, AMBULATOR 350.1.13.21 Rasheed Kermit Y 0.2.7.2.686 [place] [phone] [facility] 2019-04-29 2019-04-29 Office Jeff SHIRLEY [id number] [facility] 10:53:12 12:18:36 Visit Kt, AMBULATOR 350.1.13.21 College Rasheed Carmen Y 0.2.7.2.686 of [place] [phone] [facility] 800 e 2019-04-21 2019-04-21 Outpatient Patrick JEAN [facility] [id number] Univers 16:30:00 16:55:27 WONDIFUL ity o f [facility] Results This patient has no known results.
[2021-09-24] MEDS ORDERED: NA CHLORIDE 0.9% 1,000 ML ONE (20:40)
[2021-09-24] MEDS ORDERED: ONDANSETRON 4 MG/2 ML VIAL ONE (20:40)
[2021-09-24 21:19] LABS: Hematocrit 39.3 % (36.0-45.0); Lymphocytes % 17.4 % (15.3-44.8); MPV 7.4 fL (7.6-11.3); RBC Red Blood Cell Count 4.23 M/uL (3.86-4.86)
[2021-09-24 21:28] LABS: BUN Blood Urea Nitrogen 7 mg/dL (7-18); Bicarbonate 24 mmol/L (21-32); Glucose Level 136 mg/dL (74-106); Potassium 3.1 mmol/L (3.5-5.1); Sodium Level 137 mmol/L (136-145)
[2021-09-24] MEDS ORDERED: KCL 20 MEQ/100 mL IVPB 100 ML IV ONE (21:48)
--- NOTE | 2021-09-24 23:48 | ER ---
Nurse's Notes [facility] Name: Shari Estrella Age: 31 yrs Sex: Female : 1990 Arrival Date: 09/24/2021 Time: 20:14 Bed 5 Private MD: Diagnosis: Adverse effect of other drugs, medicaments and biological substances Presentation: 09/24 20:15 Chief complaint: EMS states: took 2 30mg CBD gummy's and now feels "off". Coronavirus as6 screen: At this time, the client does not indicate any symptoms associated with coronavirus-19. Ebola Screen: No symptoms or risks identified at this time. Initial Sepsis Screen: Does the patient meet any 2 criteria? HR > 90 bpm. Does the patient have a suspected source of infection? No. Patient's initial sepsis screen is negative. Risk Assessment: Do you want to hurt yourself or someone else? Patient reports no desire to harm self or others. Onset of symptoms was September 24, 2021. 20:15 Method Of Arrival: EMS: [facility] as6 20:15 Acuity: SAMAN 3 as6 Historical: - Allergies: 20:17 Latex, Natural Rubber; as6 20:17 Sulfa (Sulfonamide Antibiotics); as6 20:17 Toradol; as6 - Home Meds: 20:17 Atenolol Oral [Active]; Oxycodone HCl Oral [Active]; as6 - PMHx: 20:17 Hypertension; spina bifida; as6 - PSHx: 20:17 spinal; bladder; as6 - Immunization history:: Client reports having NOT received the Covid vaccine. - Social history:: Smoking status: Patient denies any tobacco usage or history of. Screenin:08 Abuse screen: Denies threats or abuse. Denies injuries from another. Nutritional as6 screening: No deficits noted. Tuberculosis screening: No symptoms or risk factors identified. Fall Risk None identified. Assessment: 20:10 General: Appears in no apparent distress. Behavior is cooperative, anxious. Pain: as6 Denies pain. Neuro: Level of Consciousness is awake, alert, obeys commands, Oriented to person, place, time, situation. Cardiovascular: Reports "I can feel my heart beating, I just feel off" Rhythm is sinus tachycardia. Respiratory: Airway is patent Trachea midline Respiratory effort is even, unlabored, Respiratory pattern is regular, symmetrical. 20:10 Derm: Skin is intact. Musculoskeletal: spina bifida. as6 23:31 Reassessment: Patient appears in no apparent distress at this time. as6 Vital Signs: 20:15 BP 158 / 93; Pulse 139; Resp 21 S; Temp 97.6(TE); Pulse Ox 100% on R/A; Weight 35.83 kg as6 (R); Height 5 ft. (152.40 cm) (R); Pain 0/10; 21:04 BP 126 / 83; Pulse 129; Resp 28 S; Pulse Ox 100% on R/A; as6 22:20 BP 122 / 81; Pulse 126; Resp 20; Pulse Ox 100% on R/A; ld1 23:31 BP 99 / 64; Pulse 110; Resp 27 S; Pulse Ox 99% on R/A; as6 23:53 BP 104 / 69; Pulse 121; Resp 20; Pulse Ox 96% on R/A; tw5 20:15 Body Mass Index 15.43 (35.83 kg, 152.40 cm) as6 ED Course: 20:14 Patient arrived in ED. as6 20:16 Ethan Bonilla PA is PHCP. jr8 20:16 Joel Ariza MD is Attending Physician. jr8 20:17 Triage completed. as6 20:19 Arm band placed on. as6 20:21 Zach Brown, CHATA is Primary Nurse. as6 20:56 Accessed Port-a-Cath. using 18G Nexia IV Catheter ,sterile technique, per hospital as6 protocol. Clean \\T\\ dry. Dressing intact. No blood return. Flushes easily. 21:09 Placed in gown. Bed in low position. Call light in reach. Side rails up X2. Cardiac as6 monitor on. Pulse ox on. NIBP on. Warm blanket given. 21:10 Basic Metabolic Panel Sent. as6 21:10 CBC with Diff Sent. as6 23:53 No provider procedures requiring assistance completed. tw5 23:55 IV discontinued, intact, bleeding controlled, No redness/swelling at site. Pressure tw5 dressing applied. Administered Medications: 20:56 Drug: NS 0.9% 1000 ml Route: IV; Rate: 1000 ml; Site: Port-a-cath; as6 23:55 Follow up: Response: No adverse reaction; IV Status: Completed infusion; IV Intake: tw5 1000ml 20:56 Drug: Zofran (Ondansetron) 4 mg Route: IVP; Site: Port-a-cath; as6 23:55 Follow up: Response: No adverse reaction tw5 21:48 Drug: Potassium Chloride 20 mEq Route: IV; Rate: calculated rate; Site: Port-a-cath; as6 23:55 Follow up: IV Status: Completed infusion; IV Intake: 50ml Intake: 23:55 IV: 50ml; Total: 50ml. 23:55 IV: 1000ml; Total: 1050ml. Outcome: 23:48 Discharge ordered by . jr 23:55 Discharged to home via wheelchair, with family. 23:55 Condition: improved 23:55 Discharge instructions given to patient, Instructed on discharge instructions, follow up and referral plans. 09/25 00:01 Patient left the ED. as6 Signatures: Ethan Bonilla PA PA jr8 Jenniffer Rosenberg, RN RN [email or web address] Crissy Watt tw5 Zach Brown RN RN as6
--- NOTE | 2021-09-24 23:48 | EDPHYS ---
Physician Documentation [facility] Name: Shari Estrella Age: 31 yrs Sex: Female : 1990 Arrival Date: 09/24/2021 Time: 20:14 Bed 5 Private MD: ED Physician Joel Ariza HPI: 09/24 21:18 This 31 yrs old Female presents to ER via EMS with complaints of nausea, palpitations. jr8 21:18 Severity of symptoms: At their worst the symptoms were moderate in the emergency jr8 department the symptoms are unchanged. The patient has not experienced similar symptoms in the past. The patient has not recently seen a physician. This is a 31-year-old female that presented to the emergency room via EMS after calling them for nausea and palpitations. Patient stated that she took delta 8 Gummies today and since then has been having adverse effects.. Historical: - Allergies: 20:17 Latex, Natural Rubber; as6 20:17 Sulfa (Sulfonamide Antibiotics); as6 20:17 Toradol; as6 - Home Meds: 20:17 Atenolol Oral [Active]; Oxycodone HCl Oral [Active]; as6 - PMHx: 20:17 Hypertension; spina bifida; as6 - PSHx: 20:17 spinal; bladder; as6 - Immunization history:: Client reports having NOT received the Covid vaccine. - Social history:: Smoking status: Patient denies any tobacco usage or history of. ROS: 21:18 Eyes: Negative for injury, pain, redness, and discharge, ENT: Negative for injury, jr8 pain, and discharge, Neck: Negative for injury, pain, and swelling. 21:18 Respiratory: Negative for shortness of breath, cough, wheezing, and pleuritic chest pain, Back: Negative for injury and pain, MS/Extremity: Negative for injury and deformity, Skin: Negative for injury, rash, and discoloration, Neuro: Negative for headache, weakness, numbness, tingling, and seizure. 21:18 Cardiovascular: Positive for palpitations. 21:18 Abdomen/GI: Positive for nausea and vomiting, Negative for abdominal pain, diarrhea. Exam: 21:18 Constitutional: This is a well developed, well nourished patient who is awake, alert, jr8 and in no acute distress. Neck: Trachea midline, no thyromegaly or masses palpated, and no cervical lymphadenopathy. Supple, full range of motion without nuchal rigidity, or vertebral point tenderness. No Meningismus. Respiratory: Lungs have equal breath sounds bilaterally, clear to auscultation and percussion. No rales, rhonchi or wheezes noted. No increased work of breathing, no retractions or nasal flaring. Abdomen/GI: Soft, non-tender, with normal bowel sounds. No distension or tympany. No guarding or rebound. No evidence of tenderness throughout. Back: No spinal tenderness. No costovertebral tenderness. Full range of motion. Skin: Warm, dry with normal turgor. Normal color with no rashes, no lesions, and no evidence of cellulitis. MS/ Extremity: Pulses equal, no cyanosis. Neurovascular intact. Full, normal range of motion. Neuro: Awake and alert, GCS 15, oriented to person, place, time, and situation. Cranial nerves II-XII grossly intact. Motor strength 5/5 in all extremities. Sensory grossly intact. 21:18 Cardiovascular: Rate: tachycardic, Rhythm: regular, Pulses: Pulses are 2+ in right radial artery and left radial artery. Heart sounds: normal, normal S1and S2, no S3 or S4, no murmur, no rub, no gallop, Edema: is not appreciated. Vital Signs: 20:15 BP 158 / 93; Pulse 139; Resp 21 S; Temp 97.6(TE); Pulse Ox 100% on R/A; Weight 35.83 kg as6 (R); Height 5 ft. (152.40 cm) (R); Pain 0/10; 21:04 BP 126 / 83; Pulse 129; Resp 28 S; Pulse Ox 100% on R/A; as6 22:20 BP 122 / 81; Pulse 126; Resp 20; Pulse Ox 100% on R/A; ld1 23:31 BP 99 / 64; Pulse 110; Resp 27 S; Pulse Ox 99% on R/A; as6 23:53 BP 104 / 69; Pulse 121; Resp 20; Pulse Ox 96% on R/A; tw5 20:15 Body Mass Index 15.43 (35.83 kg, 152.40 cm) as6 MDM: 20:16 Patient medically screened. jr8 23:13 Data reviewed: vital signs, nurses notes, lab test result(s), and as a result, I will jr8 discharge patient. Data interpreted: Pulse oximetry: on room air is 100 %. Interpretation: normal. Counseling: I had a detailed discussion with the patient and/or guardian regarding: the historical points, exam findings, and any diagnostic results supporting the discharge/admit diagnosis, lab results, the need for outpatient follow up, a family practitioner, to return to the emergency department if symptoms worsen or persist or if there are any questions or concerns that arise at home. Response to treatment: the patient's symptoms have mildly improved after treatment, patient is well hydrated. 09/24 20: Order name: CBC with Diff; Complete Time: 8 09/24 20: Order name: Basic Metabolic Panel; Complete Time: jr8 09/24 20: Order name: IV; Complete Time: 20:56 jr8 Administered Medications: 20:56 Drug: NS 0.9% 1000 ml Route: IV; Rate: 1000 ml; Site: Port-a-cath; as6 23:55 Follow up: Response: No adverse reaction; IV Status: Completed infusion; IV Intake: tw5 1000ml 20:56 Drug: Zofran (Ondansetron) 4 mg Route: IVP; Site: Port-a-cath; as6 23:55 Follow up: Response: No adverse reaction tw5 21:48 Drug: Potassium Chloride 20 mEq Route: IV; Rate: calculated rate; Site: Port-a-cath; as6 23:55 Follow up: IV Status: Completed infusion; IV Intake: 50ml tw5 Disposition Summary: 09/24/21 23:48 Discharge Ordered Location: Home [facility] Problem: new jr8 Symptoms: have improved jr8 Condition: Stable jr8 Diagnosis - Adverse effect of other drugs, medicaments and biological substances jr8 Followup: jr8 - With: Private Physician - When: 2 - 3 days - Reason: Recheck today's complaints, Continuance of care, Re-evaluation by your physician Discharge Instructions: - Discharge Summary Sheet jr8 - Accidental Drug Poisoning, Adult jr8 - Illegal Drug Use Information, Adult jr8 Forms: - Medication Reconciliation Form jr8 - Thank You Letter jr8 - Antibiotic Education jr8 - Prescription Opioid Use jr8 Signatures: Dispatcher [employer] EDMS Ethan Bonilla PA PA jr8 Zach Brown, RN RN as6 Crissy Watt tw5
[2021-09-25 00:13] VITALS: TEMP 97.6
[2021-09-25 00:19] VITALS: BP 104/69; O2SAT 96
== END 2021-09-25 00:01 | disposition home or self-care (01) ==
LOC: ER 20:13
DX: R00.2 Palpitations (principal); T50.995A Adverse effect of other drugs, medicaments and biological substances, initial encounter; I10 Essential (primary) hypertension; Z88.2 Allergy status to sulfonamides; Z91.040 Latex allergy status; Z91.048 Other nonmedicinal substance allergy status
CPT/HCPCS: 96365; 96361; 85025; 80048; 36415; 96375; 99285; 96366; J3480; J7030; J2405

== ENCOUNTER 2022-10-06 12:13 | Inpatient (IN) | payer OTHER ==
--- OUTSIDE RECORDS SUMMARY | 2022-10-06 12:17 | XMS REPORT | Continuity of Care Document ---
:1990 Author Organization [facility] t Address [address] [place] [address] Care Team Providers Name Role Phone PCP, PATIENT DOES NOT HAVE A Primary Care Physician Unavaila ble Doctor Unassigned, [place] Attending Clinician Unavailable SONJA HOOVER Attending Clinician Unavailable Yeni De Jesus Attending Clinician Sonja Hoover MD Attending Clinician ERASMO Attending Clinician Unavailable Shirley Jean MD Attending Clinician Pob, [facility] Main Attending Clinician Unavailable SCARLET HOSKINS Attending Clinician Unavailable Roberto Vigil MD Attending Clinician SHIRLEY JEAN Attending Clinician Unavailable Jeff Meraz MD, Rasheed Davila Attending Clinic ada SONJA HOOVER Admitting Clinician Unavailable Sonja Hoover MD Admitting Clinician ERASMO Admitting Clinician Unavailable Payers Payer Name Policy Type Policy Number Effective Date Expiration Date S ource Problems Condition Condition Condition Status Onset Resolution Last Treating Co mments Source Name Details Category Date Date Treatment Clinician Date Complicate Complicate Disease Active U nivers d UTI d UTI 8-20 ity of (urinary (urinary 00:00: [place] tract tract 00 Medical infection) infection) Br anch Pressure Pressure Disease Active 2018-08 Unive rs injury of injury of 1-26 ity of left left 00:00: [place] buttock, buttock, 00 Medica l stage 4 stage 4 Branch Nexplanon Nexplanon Disease Active Uni vers in place in place 8-20 ity of 00:00: [place] 00 Medical Branch Other Other Disease Active [facility] 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, scoliosis, 00:00: t & Plan: of thoracolum thoracolum 00 Resulting Medicin bar region bar region in severe e restricti ve lung disease Sleep-diso Sleep-diso Disease Active Last Tanna see [facility] 12-01 [facility] breathing breathing 00:00: t & Plan: o [...] as indicated Restrictiv Restrictiv Disease Active Last Tanna bonner e lung e lung 12-01 [facility] disease disease 00:00: t & Plan: of due to due to 00 PFt poor Medicin kyphoscoli kyphoscoli quality, e osis osis patient was very anxious during testing, sig restricti on Alveolar Alveolar Disease Active Last [facility] r hypoventil hypoventil 12-01 [facility] ation ation 00:00: t & Plan: of 00 High risk Medicin patient e Will check on sleep study 17 weeks [address] Active [address] 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 2-18 ity of 00:00: [place] [facility] Hemochroma Hemochroma Disease Active 2019 U nivers tosis tosis 1-11 ity of carrier carrier 00:00: [place] [facility] Pituitary Pituitary Disease Active 2017-08 Uni vers tumor tumor 2-07 ity of 00:00: [place] [facility] Elevated Elevated Disease Active 2017-08 Unive rs alkaline alkaline 1-02 ity of phosphatas phosphatas [place] level e level Medical Branch Hyperprola Hyperprola Disease Active 2017-08 U nivers ctinemia ctinemia 1-02 ity of 00:00: [place] [facility] Branch Persistent Persistent Disease Active 2017-08 U natalyers headaches headaches 1-02 ity of 00:00: [place] [facility] Branch Iron Iron Disease Active 2017-08 Univers deficiency deficiency 1-02 it y of anemia, anemia, 00:00: [place] unspecifie unspecifie 00 Me dical d iron d iron Branch deficiency deficiency anemia anemia type type Cholelithi Cholelithi Disease Active 2017-08 U lucina asis asis 0-29 ity of 00:00: [place] 00 Medical Branch S/P LINOLEUM INSTALLER S/P LINOLEUM INSTALLER Disease Active 2017-08 Univers shunt shunt 0-24 ity of 00:00: [place] [facility] Recurrent Recurrent Disease Active 2017-08 Uni vers UTI UTI 0-24 ity of 00:00: [place] [facility] Irregular Irregular Disease Active 2017-08 Uni vers menses menses 0-24 ity of 00:00: [place] [facility] Anemia, Anemia, Disease Active 2017-08 Univers unspecifie unspecifie 0-24 it y of d type d type 00:00: [place] [facility] Poor Poor Disease Active 2017-08 Univers nutrition nutrition 0-24 ity of 00:00: [place] [id number] Medical Branch 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 spina bifida s/p augmentat ion cystoplas ty and catheteri zable channel by Dr. Spicer at [facility] as a ch Scoliosis Scoliosis Disease Active 2017-08 Uni vers 0-24 ity of 00:00: Medical Branch Rh Rh Disease Active Overview: Univer s negative negative 618 Formattin ity of state in state in 00:00: g of this [place] as antepartum antepartum 00 note Me dical period period might be Branch different from the original. Rhogam at 28 weeks Rubella Rubella Disease Active Overview: Univ ers non-immune non-immune 618 Formattin ity of status, status, 00:00: g of this [place] antepartum antepartum 00 note Me dical might be Branch different from the original. Address pp History of History of Disease Active U nivers miscarriag miscarriag 6-15 it y of e e 00:00: Medical Branch Wheelchair Wheelchair Disease Active U nivers bound bound 4-13 ity of 00:00: Medical Branch Spina Spina Disease Active Univers bifida, bifida, 4-13 ity of unspecifie unspecifie 00:[place] 00 Medical hydrocepha hydrocepha Br anch chana chana presence, presence, unspecifie unspecifie d spinal d spinal region region Wheelchair Wheelchair Disease Active U nivers bound bound 4-13 ity of 00:00: Medical Branch Allergies, Adverse Reactions, Alerts Allergy Allergy Status Severity Reaction(s) Onset Inactive Treating Comm ents Source Name Type Date Date Clinician TEGADERM DRUG Active Hives Univers DRESSING INGREDI 6-13 ity of 00:00: Medical Branch Tegaderm Propensi Active Hives Univer s Dressing ty to 6-13 ity of adverse 00:00: [place] reaction 00 Medical s Branch VANCOMYC DRUG Active ITCHING Univers IN INGREDI 5-25 ity of 00:00: Medical Branch Vancomyc Propensi Active Rash Univer s in ty to 5-25 ity of adverse 00:00: [place] reaction 00 Medical s Branch Sulfa Propensi Active Rash [facility] Antibiot ty to 4-13 College ics adverse 00:00: of reaction 00 Medicin s to e drug SULFA Drug Active Rash Univers (SULFONA Class 4-13 ity of MIDE 00:00: [place] ANTIBIOT 00 Medical ICS) Branch Sulfa Propensi Active Rash Univers (Sulfona ty to 4-13 ity of mide adverse 00:00: [place] Antibiot reaction 00 Medica l ics) s Branch Sulfamet Propensi Active Rash [facility] hoxazole ty to 02-25 [place] W/Trimet adverse 00:00: of hoprim reaction Medicin s to e drug Latex Propensi Active Rash [facility] ty to 723 [place] adverse 00:00: of reaction 00 Medicin s to e substanc e LATEX DRUG Active High Rash Univers INGREDI 02-25 ity of 00:00: [place] 00 Medical Branch SULFAMET DRUG Active Hives Univers HOXAZOLE 02-25 ity of (BULK) 00:00: [place] 00 Medical Branch Latex Propensi Active Nausea Univers ty to and/or 02-25 ity of adverse Vomiting 00:00: [place] reaction 00 Medical s Branch Sulfamet Propensi Active Rash Univer s hoxazole ty to 02-25 ity of (Bulk) adverse 00:00: [place] reaction 00 Medical s Branch Social History Social Habit Start Date Stop Date Quantity Comments Source History [facility] ge of Alcohol Std Medicine Drinks History [facility] ge of Alcohol Binge Medicine Exposure to 2022-03-15 2022-03-25 Not sure University SARS-CoV-2 00:00:00 18:16:00 [facility] (event) Branch Tobacco use and 2022-03-25 2022-03-25 Smokeless tobacco Un iversity of exposure 00:00:00 00:00:00 non-user [facility] Alcohol intake 2022-03-25 2022-03-25 Current University of 00:00:00 00:00:00 non-drinker of [facility] alcohol (finding) Branch History [facility] 2018-11-25 2018-11-25 1 [facility] Bud ge of Alcohol Frequency 00:00:00 00:00:00 Medicin e Sex [birth year] At [birth year] MAGGIE Teran 00:00:00 [facility]:00:00 [facility] Smoking Status Start Date Stop Date Source Never smoked tobacco [facility] [place] Medications Ordered Filled Start Stop Current Ordering Indication Dosage Frequency Signature Comments Components Source Medication Medication Date Date Medication? Clinician (SIG) Name Name atenoloL Yes 100mg Take 100 Univ ers 100 mg 8-25 mg by ity of tablet 00:33: mouth in [place] 01 the Medical morning. Branch atenoloL Yes 100mg Take 100 Univ ers 100 mg 8-25 mg by ity of tablet 00:33: mouth in [place] 01 the Medical morning. Branch heparin No 300U 300 Units, Uni vers lock flush 03-28 IV Push, ity of (HEPARIN 18:30: 17:24 ONCE, 1 [place] LOCKFLUSH(P 00 :00 dose, On Medi jose ORCINE)(PF) [facility] ) 100 03/28/22 at unit/mL 1330, injection Routine 300 Units diphenhydrA Yes 50mg Take 50 mg Univers MINE 25 mg 8-23 by mouth ity o f capsule 12:34: at [place]time [place] 05 as needed Medical for Branch Allergies. oxyCODONE-a Yes 1{tbl} Take 1 Un vamsi cetaminophe 8-23 tablet by ity of n 10-325 mg 12:34: mouth [place] per tablet 05 every 6 Medica l (six) Branch hours as needed for Pain. dicyclomine Yes 10mg Take 10 mg Univers 10 mg 8-23 by mouth 4 ity of capsule 12:34: (four) [place] 05 times Medical daily. Branch atenoloL 0 Yes 100mg Take 100 Univ ers 100 mg 8-23 mg by ity of tablet 12:34: mouth in [place] 05 the Medical morning. Branch diphenhydrA 0 Yes 50mg Take 50 mg Univers MINE 25 mg 8-23 by mouth ity o f capsule 12:34: at [place]time [place] 05 as needed Medical for Branch Allergies. oxyCODONE-a Yes 1{tbl} Take 1 Un vamsi cetaminophe 8-23 tablet by ity of n 10-325 mg 12:34: mouth [place] per tablet 05 every 6 Medica l (six) Branch hours as needed for Pain. dicyclomine Yes 10mg Take 10 mg Univers 10 mg 8-23 by mouth 4 ity of capsule 12:34: (four) [place] 05 times Medical daily. Branch diphenhydrA 0 Yes 50mg Take 50 mg Univers MINE 25 mg 8-23 by mouth ity o f capsule 12:34: at bedtime [place] 05 as needed Medical for Branch Allergies. oxyCODONE-a Yes 1{tbl} Take 1 Un vamsi cetaminophe 8-23 tablet by ity of n 10-325 mg 12:34: mouth [place] per tablet 05 every 6 Medica l (six) Branch hours as needed for Pain. dicyclomine Yes 10mg Take 10 mg Univers 10 mg 8-23 by mouth 4 ity of capsule 12:34: (four) [place] 05 times Medical daily. Branch cefUROXime 2021- No [id number] 500mg Take 1 Univers 500 mg 8-23 - tablet by ity of tablet 00:00: 04:59 mouth in [place] 00 :00 the Medical morning Branch and 1 tablet in the evening. Do all this for 7 days. magnesium 2021- No 2g 2 g, IV Univ ers sulfate in 03-26 Piggyback, it y of water 2 17:45: 20:17 Administer [place] as gram/50 mL 00 :00 over 60 Medica l (4 %) Minutes, Branch infusion 2 ONCE NOW, g 1 dose, On 03/26/22 at 1245, Routine enoxaparin 0 Yes 40mg 40 mg, Unive rs (LOVENOX) 03-26 Subcutaneo ity of injection 14:00: [place], [place]ILY, [place] 40 mg 00 First dose Medical on [place] Branch 03/26/22 at 0900, Until Discontinu ed, Routine atenoloL Yes 100mg 100 mg, Unive rs (TENORMIN) 03-26 Oral, ity of tablet 100 14:00: DAILY, [place] mg 00 First dose Medical on [facility] 03/26/22 at 0900, Until Discontinu ed, Routine KCL No 40meq 40 mEq, Univers (KLOR-CON 03-26 Oral, ity of M20) tablet 13:30: 13:32 ONCE, 1 [place] 40 mEq 00 :00 dose, On [facility] 03/26/22 at 0830, Routine dicyclomine Yes 10mg 10 mg, Univ ers (BENTYL) 03-26 Oral, QID, ity o f capsule 10 13:00: First dose [place] mg 00 on [facility] 03/26/22 at Branch 0800, Until Discontinu ed, Routine potassium No 10meq 10 mEq, IV Univers chloride in 03-26 Piggyback, i ty of water 10 13:00: 15:42 Q1H, 2 [place] mEq/100 mL 00 :00 doses, Medical RTU 10 mEq First dose Bra nch on [place] 03/26/22 at 0800, Last dose on [place] 03/26/22 at 0900, Administer over 60 Minutes, 100 mL meropenem No 1000mg 1,000 mg, Univers (MERREM) 03-26 IV ity of 1,000 mg in 09:00: 08:59 Piggyback, [place] NaCl 0.9% 00 :00 Q8H ABX, Medica l (NS) 50 mL 21 doses, Bran ch MINI-BAG First dose on [place] 03/26/22 at 0400, Last dose on [facility] 04/01/22 at 2000, Administer over 30 Minutes, 50 mL
Rest ricted use approved by: After Hours (for ADC, CLC, LCC ONLY)
R pj for Anti-Infec tive: Documented Infection< br>Documen carlos Infection Site: Urine
D uration of Therapy: 7 days KCL No 40meq 40 mEq, Univers (KLOR-CON 03-26 Oral, ity of M20) tablet 06:00: 09:37 ONCE, 1 [place] 40 mEq 00 :00 dose, On [facility] 03/26/22 at 0100, Routine ondansetron 0 Yes 4mg 4 mg, Slow Univers (ZOFRAN 03-26 IV Push, ity of (PF)) 02:43: Q6RN, [place] injection 4 03 Starting Medi jose mg on Sat Branch 03/25/22 at 2143, Until Discontinu ed, Routine, Nausea and Vomiting (N/V) acetaminoph 0 Yes 650mg 650 mg, Un vamsi en 03-26 Oral, ity of (TYLENOL) 02:42: Q6HPRN, [place] tablet 650 55 Starting Medic al mg on Sat Branch 03/25/22 at 2142, Until Discontinu ed, Routine, Pain (scale 1-3) oxyCODONE-a 0 Yes 1{tbl} 1 tablet, Univers cetaminophe 03-26 Oral, ity of n 02:41: [facility] [place] (PERCOCET) 13 Starting Medic al 5-325 mg on [facility] Branch per tablet 03/25/22 at 1 tablet 2140, Until Discontinu ed, Pain (scale 7-10) diphenhydrA Yes 50mg 50 mg, Univ ers MINE 03-26 Oral, ity of (BENADRYL) 02:40: [facility] Starting Medica l mg on [facility] Branch 03/25/22 at 2140, Until Discontinu ed, Routine, Congestion /Allergies , Sleep meropenem 0 2021- No 1000mg 1,000 mg, Univers (MERREM) 03-26 IV ity of 1,000 mg in 01:45: 01:13 [place], [place] NaCl 0.9% 00 :00 ONCE, 1 Medical (NS) 50 mL dose, On [facility] h MINI-BAG [facility] 03/25/22 at 2044, Administer over 30 Minutes, 50 mL
Rest ricted use approved by: EMERGENCY DEPARTMENT PRESCRIBER
Reason for Anti-Infec tive: Documented Infection< br>Documen carlos Infection Site: Urine
D uration of Therapy: Other (see Comments) metoprolol 0 2021- No 5mg 5 mg, Slow Univers (LOPRESSOR) 03-26 IV Push, ity of injection 5 00:45: 00:42 ONCE, 1 [place] mg 00 :00 dose, On Medical Sat Branch 03/25/22 at 1945, [place] NaCl 0.9% 2021- No 1000mL at 999 Uni vers (NS) bolus 03-2621 mL/hr, ity of infusion 00:45: 00:05 1,000 mL, [place] as 1,000 mL 00 :00 IV Medical Infusion, Branch ONCE, 1 dose, On 03/25/22 at 1945, [place] ondansetron 2021- No 4mg 4 mg, Slow Univers (ZOFRAN 03-25 IV Push, ity of (PF)) 23:45: 23:59 ONCE, 1 [place] injection 4 00 :00 dose, On Medi jose mg Sat Branch 03/25/22 at 1845, [place] morpHINE (2 No 2mg 2 mg, Slow Univers mg/mL) 03-25 IV Push, ity of injection 2 23:45: 23:59 ONCE, 1 [place] mg 00 :00 dose, On Medical Sat Branch 03/25/22 at 1845, STAT dicyclomine 2019-0 Yes 10mg Take 10 mg [facility] (BENTYL) 10 24 by mouth. Col lege MG capsule 19:29: of 04 Medicin e ondansetron 2020-0 Yes [place] (ZOFRAN) 4 - College MG tablet 00:00: of Medicin e promethazin 2019-0 Yes [facility] e 08-07 College (PHENERGAN) 00:00: of 25 MG 00 Medicin tablet e ondansetron 2020-0 Yes Univer s 4 mg tablet 08-07 ity of 00:00: [place] 00 Medical Branch ondansetron 2020-0 Yes Univer s 4 mg tablet 08-07 ity of 00:00: [place] [facility] ondansetron 2020-0 Yes Univer s 4 mg tablet 08-07 ity of 00:00: Medical Branch diphenhydrA 2018-0 Yes 50mg Take 50 mg [facility] MINE - by mouth [place] (BENADRYL) 16:23: daily. of 25 MG 12 Medicin capsule e diphenhydrA Yes 50mg Take 50 mg [place] MINE -24 by mouth [place] (BENADRYL) 16:23: daily. of 25 MG 12 Medicin capsule e labetalol Yes [id number] 200mg Take 1 U nivers 200 mg 9-16 tablet by ity of tablet 00:00: mouth 2 [place] [address] (two) Medical times Branch daily. labetalol Yes [id number] 200mg Take 1 U nivers 200 mg 9-16 tablet by ity of tablet 00:00: mouth 2 [place] (two) Medical times Branch daily. labetalol Yes [id number] 200mg Take 1 U nivers 200 mg 9-16 tablet by ity of tablet 00:00: mouth 2 [place] (two) Medical times Branch daily. nystatin-tr Yes [id number] Apply to [facility] iamcinolone 12-12 bilateral Col lege (MYCOLOG) 00:00: clean dry of ointment 00 groin BID Medici n x 7 days e nystatin-tr Yes [id number] Apply to [facility] iainolone 12-12 bilateral Col lege (MYCOLOG) 00:00: clean dry of ointment 00 groin BID Medici n x 7 days e oxybutynin 2019- No [id number] 10mg Take 1 Tab [place] (DITROPAN-X 12-12 by mouth Col lege L) 10 MG CR 00:00: 00:00 daily. of tablet 00 :00 Medicin e nitrofurant 2019- No 1{capsu Take 1 Cap [facility] oin, 11-18 le} by mouth [place] macrocrysta 00:00: 00:00 daily. of l-monohydra 00 :00 Medicin te, e (MACROBID) 100 MG capsule Prenat-Fe 2019- No 1{tbl} Take 1 Tab [place] Poly-Methfo 11-18 by mouth Col lege l-FA-DHA 00:00: 00:00 daily. of (VITAFOL 00 :00 Medicin ULTRA) e 29-0.6-0.4- 200 MG CAPS DICLEGIS 2019- No 3{tbl} Take 3 [facility] or 10-10 MG 3-04-29 Tabs by [place] TBEC 00:00: 00:00 mouth of 00 :00 daily. 2 Medicin tablets in e am and 1 tab in PM Cholecalcif 2019- Yes 1{tbl} Take 1 Tab [facility] dorene 3-12 by mouth College (VITAMIN 00:00: daily. of D-3) 1000 Medicin units CAPS e Cholecalcif 2018- Yes 1{tbl} Take 1 Tab [facility] dorene 3-12 by mouth College (VITAMIN 00:00: daily. of D-3) 1000 Medicin units CAPS e omeprazole Yes 20mg [...] Medicin 10-325 MG e per tablet oxycodone-a 0 Yes 2{tbl} Take 2 [facility] cetaminophe 3-06 Tabs by Colle ge n 00:00: mouth of (PERCOCET) 00 daily. Medicin 10-325 MG e per tablet labetalol Yes 200mg Take 200 [place] [facility] (NORMODYNE) 2-15 mg by College 200 MG 00:00: mouth of tablet 00 every 12 Medicin hours. e labetalol 2019-0 Yes 200mg Take 200 [place] [facility] (NORMODYNE) 2-15 mg by College 200 MG 00:00: mouth of tablet 00 every 12 Medicin hours. e atenolol 2016- Yes DAILY [place] (TENORMIN) 2-08 College 50 MG 00:00: of tablet 00 Medicin e Immunizations Ordered Filled Immunization Date Status Comments [facility] e Immunization Name Name MMR 2019-02-08 Completed University of 00:00:00 [facility] Branch MMR 2019-02-08 Completed University of 00:00:00 [facility] Branch MMR 2019-02-08 Completed University of 00:00:00 [facility] Branch TDAP 2019-01-30 Completed University of 00:00:00 [place] [facility] TDAP 2019-01-30 Completed University of 00:00:00 [place] [facility] TDAP 2019-01-30 Completed University of 00:00:00 [facility] Branch HPV9 2017-02-15 Completed University of 00:00:00 [place] [facility] HPV9 2017-02-15 Completed University of 00:00:00 [facility] Branch HPV9 2017-02-15 Completed University of 00:00:00 [facility] Vital Signs Vital Name Observation Time Observation Value Comments Source Systolic blood 2022-03-28 16:21:00 107 mm[Hg] Univer sity of [facility] Diastolic blood 2022-03-28 16:21:00 55 mm[Hg] Unive rsity of [facility] Heart rate 2022-03-28 16:21:00 63 /min [facility] Body temperature 2022-03-28 16:21:00 36.22 Pati [facility] Respiratory rate 2022-03-28 16:21:00 18 /min General acute hospital Oxygen saturation in 2022-03-28 16:21:00 100 /min [facility] Arterial blood by [facility] Pulse oximetry Branch Body weight 2022-03-28 08:50:00 32.977 kg [facility] BMI 2022-03-28 08:50:00 22.18 kg/m2 [facility] Systolic blood 2019-08-29 19:27:00 135 mm[Hg] [facility] Medicine Diastolic blood 2019-08-29 19:27:00 95 mm[Hg] [facility] Medicine Heart rate 2019-08-29 19:27:00 93 /min [facility] Body temperature 2019-08-29 19:27:00 36.67 Pati [facility] Body weight 2019-08-29 19:27:00 31.752 kg [facility] BMI 2019-08-29 19:27:00 21.36 kg/m2 [facility] Systolic blood 2019-08-29 19:27:00 135 mm[Hg] [facility] pressure Medicine Diastolic blood 2019-08-29 19:27:00 95 mm[Hg] [facility] pressure Medicine Heart rate 2019-08-29 19:27:00 93 /min [facility] Body temperature 2019-08-29 19:27:00 36.67 Pati [facility] Body weight 2019-08-29 19:27:00 31.752 kg [facility] BMI 2019-08-29 19:27:00 21.36 kg/m2 [facility] Systolic blood 2019-04-29 16:21:00 118 mm[Hg] [facility] pressure Medicine Diastolic blood 2019-04-29 16:21:00 79 mm[Hg] [facility] pressure Medicine Heart rate 2019-04-29 16:21:00 95 /min [facility] Body height 2019-04-29 16:21:00 121.9 cm [facility] Body weight 2019-04-29 16:21:00 39.463 kg [facility] BMI 2019-04-29 16:21:00 26.55 kg/m2 [facility] Systolic blood 2019-04-29 16:21:00 118 mm[Hg] [facility] pressure Medicine Diastolic blood 2019-04-29 16:21:00 79 mm[Hg] [facility] pressure Medicine Heart rate 2019-04-29 16:21:00 95 /min [facility] Body height 2019-04-29 16:21:00 121.9 cm [facility] Body weight 2019-04-29 16:21:00 39.463 kg [facility] BMI 2019-04-29 16:21:00 26.55 kg/m2 [facility] Procedures Procedure Date / Time Performing Clinician Source Performed HOME HEALTH - OTHER 2022-09-21 06:01:00 Doctor Unassigned, [facility] [place] [facility] PHYSICIAN ORDERS 2022-06-22 06:01:00 Doctor Unassigned, [facility] [place] [facility] MAGNESIUM 2022-03-28 08:55:00 [facility] BASIC METABOLIC PANEL 2022-03-28 08:55:00 Geovani [facility] (NA, K, CL, CO2, GLUCOSE, Medica l Branch BUN, CREATININE, [place]) BASIC METABOLIC PANEL 2022-03-27 09:09:00 Abdulaziz Cabrera [facility] (NA, K, CL, CO2, GLUCOSE, Medica l Branch BUN, CREATININE, [place]) CBC WITH DIFF 2022-03-27 09:09:00 Rick [facility] POTASSIUM SERUM 2022-03-26 19:21:00 [facility] PHOSPHORUS 2022-03-26 10:11:00 [facility] MAGNESIUM 2022-03-26 10:11:00 [facility] COMP. METABOLIC PANEL 2022-03-26 10:11:00 Sneha [facility] ([id number]) [facility] CBC WITH DIFF 2022-03-26 10:11:00 Sneha [facility] POCT TEST 2022-03-26 00:46:00 Yeni Lockett [facility] COMP. METABOLIC PANEL 2022-03-25 23:54:00 Yeni Lockett [facility] ([id number]) [facility] CBC WITH DIFF 2022-03-25 23:54:00 Yeni Lockett [facility] URINALYSIS 2022-03-25 23:54:00 Yeni Lockett [facility] URINE CULTURE 2022-03-25 23:54:00 Yeni Lockett [facility] COVID-19 (ID NOW RAPID 2022-03-25 23:54:00 Yeni Lockett [facility] TESTING) Medical Branch LAB ONLY COVID 2022-03-25 23:54:00 Yeni Lockett [facility] INTERPRETATION [facility] Plan of Care Planned Activity Planned Date Details Comments Source Future Scheduled TETANUS SHOT [facility]opal [facility] Test (ADULT) [code = of Medicine TETANUS SHOT (ADULT)] Future Scheduled HIV SCREENING [code [facility] Test = HIV SCREENING] of Medicine Future Scheduled CERVICAL CANCER [place] [facility] Test SCREENING 3 YEAR of Medicine FOLLOW UP [code = CERVICAL CANCER SCREENING 3 YEAR FOLLOW UP] Future Scheduled FLU VACCINE > 6 [employer] [facility] MONTHS [code = FLU of Medici ne VACCINE > 6 MONTHS] Future Scheduled URINALYSIS AUTO Ordered: 08/29/2019 [employer] [facility] W/SCOPE [code = of Medicine 20842-7] Future Scheduled TETANUS SHOT [employer] [facility] (ADULT) [code = of Medicine TETANUS SHOT (ADULT)] Future Scheduled BMI FOLLOW UP PLAN [employer] [facility] [code = BMI FOLLOW of Medici ne UP PLAN] Future Scheduled HIV SCREENING [code [employer] Test = HIV SCREENING] of Medicine Future Scheduled CERVICAL CANCER [employer] [facility] SCREENING 3 YEAR of Medicine FOLLOW UP [code = CERVICAL CANCER SCREENING 3 YEAR FOLLOW UP] Future Scheduled FLU VACCINE > 6 [employer] [facility] MONTHS [code = FLU of Medici ne VACCINE > 6 MONTHS] Future Scheduled VIDEO URODYNAMICS 1 Occurrences [employer] Test [code = 97471] starting 08/29/2019 of Med icine until 08/29/2020 Future Scheduled US RENAL BILATERAL 1 Occurrences [employer] Test [code = 37897] starting 08/29/2019 of Med icine until 08/29/2020 Future Scheduled CYSTOSCOPY [code = 1 Occurrences [employer] [facility] 692490371] starting 08/29/2019 of Medic ine until 08/29/2020 Future Scheduled CULTURE, 2 Occurrences [employer] [facility] URINE/SENSITIVITY starting 08/29/2019 of Medicine ON ALL [code = until 08/28/2020 73081-2] Encounters Start End Encounter Admission Attending Care Care Encounter Source Date/Time Date/Time Type Type Clinicians Facility Department ID 2022-09-21 2022-09-21 Orders Doctor HURST 1.2.840.114 [id number] Univers 00:00:00 00:00:00 Only Unassigned, JESSICA [id number] ity of [place] [facility] 4.2.7.2.686 Charles as [phone] [facility] jose [address] Branch 2022-06-22 2022-06-22 Orders Doctor HURST 1.2.840.114 [id number] Univers 00:00:00 00:00:00 Only Unassigned, JESSICA 350.1.13.10 ity [place] [facility] 4.2.7.2.686 [facility] [phone] [facility] 009 Branch 2022-03-25 2022-03-28 Outpatient X SNEHA [facility] [id number] Univers 18:14:00 12:33:00 SONJA ity [facility] 2022-03-25 2022-03-28 Emergency LockettYeni harley [facility] 1.2.840. 114 [id number] Univers 18:14:00 12:33:00 Sonja HooverJAMAL 350.1.13.10 ity [facility] 4.2.7.2.686 [facility] [phone] [place] [id number] Branch 2022-02-15 2022-02-15 Outpatient [facility] 983 [place] 05:40:00 05:40:00 HANA 0713 da [facility] 2021-01-10 2021-01-10 Outpatient [facility] [id number] Univers 00:00:00 00:00:00 ity [facility] 2020-11-17 2020-11-17 Orders Doctor HURST 1.2.840.114 [id number] 00:00:00 00:00:00 Only Unassigned, JESSICA 350.1.13.10 [place] [facility] 4.2.7.2.686 [id number] 009 2020-11-08 2020-11-08 Outpatient [facility] [id number] Univers 00:00:00 00:00:00 ity [facility] 2020-11-08 2020-11-08 Orders Doctor HURST 1.2.840.114 [id number] 00:00:00 00:00:00 Only Unassigned, JESSICA 350.1.13.10 [place] [facility] 4.2.7.2.686 [id number] 009 2020-10-11 2020-10-11 Telephone Cl [facility] 1.2.840.114 [id number] 00:00:00 00:00:00 [facility]ash [facility] 350.1.13.10 [place] 4.2.7.2.686 Professio [phone] [facility] [address] One 2020-10-10 2020-10-10 Orders Doctor NATALI 1.2.840.114 [id number] 00:00:00 00:00:00 Only Unassigned, JESSICA 350.1.13.10 [place] [facility] 4.2.7.2.686 [id number] 009 2020-09-17 2020-09-17 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 Worker [facility] 1.2.840.114 [id number] 16:26:39 16:41:39 Visit Lab Main [place] 350.1.13.10 [place] 4.2.7.2.686 Proflizzethio [phone] [address] 2020-09-17 2020-09-17 [facility]patient [facility] [id number] Univers 16:30:00 16:30:00 [facility] 2020-09-17 2020-09-17 Orders Doctor NATALI 1.2.840.114 [id number] 00:00:00 00:00:00 Only Unassigned, JESSICA 350.1.13.10 [place] [address]686 [id number] 009 2020-07-05 2020-07-05 Outpatient Patrick [facility] [id number] [facility] 14:30:00 14:30:00 [facility] 2020-07-05 2020-07-05 [facility] 1.2.840.114 [id number] 14:05:50 14:20:50 Visit Lab Main [place] 350.1.13.10 [place] 4.2.7.2.686 Professio [phone] [address] 2020-07-05 2020-07-05 Orders Doctor NATALI Reina.2.840.114 [id number] 00:00:00 00:00:00 Only Unassigned, JESSICA 350.1.13.10 [place] [address]686 [id number] 009 2020-05-17 2020-05-17 Orders Doctor NATALI 1.2.840.114 [id number] 00:00:00 00:00:00 Only Unassigned, JESSICA 350.1.13.10 [place] [facility] 4.2.7.2.686 [id number] 009 2020-03-18 2020-03-18 Orders Doctor NATALI 1.2.840.114 [id number] 00:00:00 00:00:00 Only Unassigned, JESSICA 350.1.13.10 [place] [facility] 4.2.7.2.686 [id number] 009 2020-03-09 2020-03-09 Orders Doctor NATALI 1.2.840.114 [id number] 00:00:00 00:00:00 Only Unassigned, JESSICA 350.1.13.10 [place] [facility] 4.2.7.2.686 [id number] 009 2020-01-05 2020-01-05 Orders Doctor HURST 1.2.840.114 [id number] 00:00:00 00:00:00 Only Unassigned, JESSICA 350.1.13.10 [place] [facility] 4.2.7.2.686 [id number] 009 2019-12-18 2019-12-18 Telephone [facility] 1.2.840.114 [id number] 00:00:00 00:00:00 Wondiful A [place] 350.1.13.10 [place] 4.2.7.2.686 Professio [phone] [address] 2019-12-16 2019-12-16 Telephone [facility] 1.2.840.114 [id number] 00:00:00 00:00:00 Wondiful A [place] 350.1.13.10 [place] 4.2.7.2.686 Professio [phone] [address] 2019-12-09 2019-12-09 Orders Doctor HURST 1.2.840.114 [id number] 00:00:00 00:00:00 Only Unassigned, JESSICA 350.1.13.10 [place] [facility] 4.2.7.2.686 [id number] 009 2019-11-24 2019-11-24 Telephone [facility] 1.2.840.114 [id number] 00:00:00 00:00:00 Wondiful A [place] 350.1.13.10 [place] 4.2.7.2.686 Professio [phone] [address] 2019-11-24 2019-11-24 Orders Doctor NATALI 1.2.840.114 [id number] 00:00:00 00:00:00 Only Unassigned, JESSICA 350.1.13.10 [place] [facility] 4.2.7.2.686 [id number] 009 2019-11-07 2019-11-07 Orders Doctor NATALI 1.2.840.114 [id number] 00:00:00 00:00:00 Only Unassigned, JESSICA 350.1.13.10 [place] [facility] 4.2.7.2.686 [id number] 009 2019-11-05 2019-11-05 Telephone [facility] 1.2.840.114 [id number] 00:00:00 00:00:00 Wondiful A [place] 350.1.13.10 [place] 4.2.7.2.[address] Professio [phone] [address] 2019-10-30 2019-10-30 Telephone [facility] 1.2.840.114 [id number] 00:00:00 00:00:00 Wondiful A Health 350.1.13.10 [place] 4.2.7.2.686 Professio [phone] [address] 2019-10-30 2019-10-30 Orders Doctor NATALI 1.2.840.114 [id number] 00:00:00 00:00:00 Only Unassigned, JESSICA 350.1.13.10 [place] [facility] 4.2.7.2.686 [id number] 009 2019-10-22 2019-10-22 Telephone [facility] 1.2.840.114 [id number] 00:00:00 00:00:00 Wondiful A [facility] 350.1.13.10 [place] 4.2.7.2.686 Professio [phone] [address] 2019-10-20 2019-10-20 [facility] 1.2.840.114 [id number] 00:00:00 00:00:00 Wondiful A [facility] 350.1.13.10 [place] 4.2.7.2.686 Professio [phone] [place] [address] [address] 2019-10-15 2019-10-15 [facility] 1.2.840.114 [id number] 00:00:00 00:00:00 Wondiful A [facility] 350.1.13.10 [place] 4.2.7.2.686 Professio [phone] [place] [address] [address] One 2019-10-08 2019-10-08 [facility] 1.2.840.114 [id number] 00:00:00 00:00:00 Wondiful A Health 350.1.13.10 [place] 4.2.7.2.686 Professio [phone] [place] [address] [facility] One 2019-08-29 2019-08-29 Office CASPER Vigil 1.2.840.114 [id number] 13:02:13 13:12:13 Visit Haideropher AMBULATOR 350.1.13.21 P Y 0.2.7.2.686 [phone] [facility] 2019-08-29 2019-08-29 Office CASPER Vigil 1.2.840.[id number] [place] [address] 13:02:13 13:12:13 Visit Haideropher AMBULATOR 350.1.13.21 [place] P Y 0.2.7.2.686 of [phone] [facility] 300 e 2019-08-15 2019-08-15 Outpatient Patrick CL, [facility] [id number] Univers 15:00:00 15:09:49 WONDIFUL ity o f [facility] 2019-05-15 2019-05-15 Outpatient Patrick CL, [facility] [id number] Univers 15:00:00 15:59:45 WONDIFUL ity o f [facility] 2019-04-29 2019-04-29 Office Jeff SHIRLEY 1.2.708.462 [id number] 10:53:12 12:18:36 Visit Kt, AMBULATOR 350.1.13.21 Rasheed Carmen Y 0.2.7.2.686 [place] [id number] 800 2019-04-29 2019-04-29 Office Jeff [facility] 1.2.429.856 [id number] 0816 [place] 10:53:12 12:18:36 Visit Kt AMBULATOR 350.1.13.21 [place] Rasheed Carmen Y 0.2.7.2.686 of [place] [phone] [facility] 800 e 2019-04-21 2019-04-21 [facility] [id number] 9925 [facility] 16:30:00 16:55:27 WONDIFUL ity o f [facility] Results Test Description Test Time Test Comments Results Result Comments Source MAGNESIUM 2022-03-28 11:10:16 Test Item Value Reference Range Interpretation Comme nts MAGNESIUM (test code = 3822209701) 1.8 mg/dL 1.7-2.4 Lab Interpretation (test code = 69116-5) [facility] (NA, K, CL, CO2, GLUCOSE, BUN, CREATININE, CA)2022-03-28 11:10:15 Test Item Value Reference Range Interpretation Comments NA (test code = 136 mmol/L 135-145 3984907179) K (test code = 4.1 mmol/L 3.5-5 2393532628) CL (test code = 103 mmol/L 98-108 6806705139) CO2 TOTAL (test code = 30 mmol/L 23-31 9702913408) AGAP (test code = 2-16 1800209532) BUN (test code = 4 mg/dL 7-23 L 9512690133) GLUCOSE (test code = 100 mg/dL 70-110 1730439231) CREATININE (test code = 0.40 mg/dL 0.5-1.04 L 3126634552) CALCIUM (test code = 8.7 mg/dL 8.6-10.6 4358702437) eGFR (test code = mL/min/1.73m2 4280625843) GENARO (test code = GENARO) Association of Glomerular Filtration Rate (GFR) and Staging of Kidney Disease* + --+ --+ ------+| GFR (mL/min/1.73 m2) ?| With Kidney Damage ?| ?Without Kidney Damage+ --------+ --------+ +| ?>90 ?| ?Stage one ?| ? Normal ?+ ---+ ---+ -------+| ?60-89 ?| ?Stage two ?| ? Decreased GFR ? + --+ --+ ------+| ?30-59 ?| ?Stage three ?| ? Stage three ? + --+ --+ ------+| ?15-29 ?| ?Stage four ? | ? Stage four ?+ ---+ ---+ -------+| ?<15 (or dialysis) ? ?| ?Stage five ? | ? Stage five ?+ ---+ ---+ -------+ *Each stage assumes the associated GFR level has been in effect for at least three months. ?Stages 1 to 5, with or without kidney disease, indicate chronic kidney disease. Notes: Determination of stages one and two (with eGFR >59mL/min/1.73 m2) requires estimation of kidney damage for at least three months as defined by structural or functional abnormalities of the kidney, manifested by either:Pathological abnormalities or Markers of kidney damage (including abnormalities in the composition of the blood or urine or abnormalities in imaging tests). Lab Interpretation Abnormal (test code = 26959-2) [facility] [id number] 19:44:05 Test Item Value Reference Range Interpretation Comments K (test code = 9110466900) 5.7 mmol/L 3.5-5 H Lab Interpretation (test code = Abnormal 41932-3) [facility] [id number] 00:46:00 Test Item Value Reference Range Interpretation Comments POCT PREG (test code = 1605) Negative On board controls acceptable with Present C Line (test code = 3574) POCT PREG LOT # (test code = 3575) [id number] POCT PREG TEST DATE (test 07/05/23 code = 3576) Lab Interpretation (test code = Normal 11835-4) [facility]. METABOLIC PANEL ([id number])2022-03-26 00:22:26 Test Item Value Reference Range Interpretation Comments NA (test code = 136 mmol/L 135-145 3125549714) K (test code = 3.0 mmol/L 3.5-5 L 9817218547) CL (test code = 100 mmol/L 98-108 8111915259) CO2 TOTAL (test code = 26 mmol/L 23-31 3738659949) AGAP (test code = 2-16 5514653821) BUN (test code = 3 mg/dL 7-23 L 0362051929) GLUCOSE (test code = 100 mg/dL 70-110 9875746603) CREATININE (test code = 0.41 mg/dL 0.5-1.04 L 2680729824) TOTAL BILI (test code = 0.3 mg/dL 0.1-1.7 5372983224) CALCIUM (test code = 9.3 mg/dL 8.6-10.6 3991613008) T PROTEIN (test code = 7.3 g/dL 6.3-8.2 0862756885) ALBUMIN (test code = 4.4 g/dL 3.5-5 5890899301) ALK PHOS (test code = 143 U/L 34-122 H 9900655143) ALTv (test code = 15 U/L 5-35 1742-6) AST(SGOT) (test code = 23 U/L 13-40 0592072690) eGFR (test code = mL/min/1.73m2 0960471568) GENARO (test code = GENARO) Association of Glomerular Filtration Rate (GFR) and Staging of Kidney Disease* + --+ --+ ------+| GFR (mL/min/1.73 m2) ?| With Kidney Damage ?| ?Without Kidney Damage+ --------+ --------+ +| ?>90 ?| ?Stage one ?| ? Normal ?+ ---+ ---+ -------+| ?60-89 ?| ?Stage two ?| ? Decreased GFR ? + --+ --+ ------+| ?30-59 ?| ?Stage three ?| ? Stage three ? + --+ --+ ------+| ?15-29 ?| ?Stage four ? | ? Stage four ?+ ---+ ---+ -------+| ?<15 (or dialysis) ? ?| ?Stage five ? | ? Stage five ?+ ---+ ---+ -------+ *Each stage assumes the associated GFR level has been in effect for at least three months. ?Stages 1 to 5, with or without kidney disease, indicate chronic kidney disease. Notes: Determination of stages one and two (with eGFR >59mL/min/1.73 m2) requires estimation of kidney damage for at least three months as defined by structural or functional abnormalities of the kidney, manifested by either:Pathological abnormalities or Markers of kidney damage (including abnormalities in the composition of the blood or urine or abnormalities in imaging tests). Lab Interpretation Abnormal (test code = 78566-7) [facility] WITH [id number] 00:09:04 Test Item Value Reference Range Interpretation Comments WBC (test code = See_Comment H [Automated 6690-2) message] The sy stem which generated this result transmitted reference range : 4.30 - 11.10 10*3/?L. The reference range was not used to interpret this result as normal/abnormal . RBC (test code = See_Comment [Automated 789-8) message] The sy stem which generated this result transmitted reference range : 3.93 - 5.25 10*6/?L. The reference range was not used to interpret this result as normal/abnormal . HGB (test code = 14.4 g/dL 11.6-15 718-7) HCT (test code = 43.7 % 35.7-45.2 4544-3) MCV (test code = 90.9 fL 80.6-95.5 787-2) MCH (test code = 29.9 pg 25.9-32.8 785-6) MCHC (test code = 33.0 g/dL 31.6-35.1 786-4) RDW-SD (test code = 47.4 fL 39-49.9 70169-2) RDW-CV (test code = 14.1 % 12-15.5 788-0) PLT (test code = See_Comment H [Automated 777-3) message] The sy stem which generated this result transmitted reference range : 166 - 358 10*3/ ?L. The reference r tenisha was not used to interpret this result as normal/abnormal . MPV (test code = 8.9 fL 9.5-12.9 L 24636-9) NRBC/100 WBC (test See_Comment [Automat ed code = 0825074322) message] The system which generated this result transmitted reference range : 0.0 - 10.0 /100 WBCs. The refer ence range was not u sed to interpret th is result as normal/abnormal . NRBC x10^3 (test code See_Comment [Auto mated = 2494916857) message] The s ystem which generated this result transmitted reference range : 10*3/?L. The reference range was not used to interpret this result as normal/abnormal . GRAN MAT (NEUT) % 73.0 % (test code = 770-8) IMM GRAN % (test code 0.40 % = 2863437645) LYMPH % (test code = 20.4 % 736-9) MONO % (test code = 5.4 % 5905-5) EOS % (test code = 0.4 % 713-8) BASO % (test code = 0.4 % 706-2) GRAN MAT x10^3(ANC) 9.39 10*3/uL 1.88-7.09 H (test code = 8385536045) IMM GRAN x10^3 (test 0.05 10*3/uL 0-0.06 code = 7868302431) LYMPH x10^3 (test code 2.62 10*3/uL 1.32-3.29 = 731-0) MONO x10^3 (test code 0.70 10*3/uL 0.33-0.92 = 742-7) EOS x10^3 (test code = 0.05 10*3/uL 0.03-0.39 711-2) BASO x10^3 (test code 0.05 10*3/uL 0.01-0.07 = 704-7) Lab Interpretation Abnormal (test code = 52747-6) [facility]"
[2022-10-06] MEDS ORDERED: NA CHLORIDE 0.9% 1,000 ML ONE (13:26)
[2022-10-06] MEDS ORDERED: ONDANSETRON 4 MG/2 ML VIAL ONE (13:26)
[2022-10-06] MEDS ORDERED: ACETAMINOPHEN 325 MG TABLET ONE (13:26)
[2022-10-06] MEDS ORDERED: MORPHINE 2 MG/ML SYR ONE (13:26)
[2022-10-06 14:03] LABS: Absolute Lymphocytes (CBC) 2.1 K/uL (0.7-4.9); Hematocrit 41.4 % (36.0-45.0); Lymphocytes % 22.3 % (15.3-44.8); MCV 98.2 fL (80-100); MPV 7.8 fL (7.6-11.3); RBC Red Blood Cell Count 4.22 M/uL (3.86-4.86)
[2022-10-06 14:05] LABS: SARS-COV-2 RT PCR NEGATIVE (NEGATIVE)
[2022-10-06 14:18] LABS: Albumin 3.8 g/dL (3.4-5.0); Bilirubin Total 0.2 mg/dL (0.2-1.0); Potassium 3.5 mmol/L (3.5-5.1); Protein, Total 7.6 g/dL (6.4-8.2)
[2022-10-06 14:23] LABS: Urine Blood Negative (Negative); Urine Glucose Negative (Negative); Urine Protein Trace (Negative); Urine pH 6.5 (5.0-7.0)
[2022-10-06 14:35] LABS: Urine Bacteria 20-50 /HPF (<20); Urine RBC <5 /HPF (None Seen)
[2022-10-06] MEDS ORDERED: CEFTRIAXONE 1000 MG/VIAL ONE (14:52)
--- NOTE | 2022-10-06 15:03 | RAD REPORT ---
EXAM DESCRIPTION: CT - Abdomen Pelvis W Contrast - 10/06/2022 2:44 pm CLINICAL HISTORY: Abdominal pain COMPARISON: none. TECHNIQUE: Computed axial tomography of the abdomen pelvis was obtained. 100 cc Isovue-300 was admin istered intravenously. Oral contrast was not requested which limits evaluation of bowel and appendix All CT scans are performed using dose optimization technique as appropriate and may include automated exposure control or mA/KV adjustment according to patient size. FINDINGS: Liver, spleen, pancreas, adrenals and right kidney unremarkable 3 millimeter calculus left kidney. Borderline left hydronephrosis Two cholelithiasis. Gallbladder wall does not appear thickened. Peritoneal catheter in place. Spina bifida with marked scoliosis. Meningocele spine Posterior left lower pelvis soft tissue ulceration. Sclerosis left ischium Postsurgical changes bladder and bowel IMPRESSION: Cholelithiasis. 3 millimeter calculus which is not obstructing the renal pelvis. There is borderline left hydronephro sis of questionable significance Sclerosis left ischium probably chronic osteomyelitis.
--- NOTE | 2022-10-06 15:06 | RAD REPORT ---
EXAM DESCRIPTION: Peggy Single View10/06/2022 1:27 pm CLINICAL HISTORY: Abdominal pain COMPARISON: 2021 FINDINGS: Marked scoliosis. Central venous line is in place. HAND CULTIVATOR shunt courses the right chest and ab domen The lungs appear clear of acute infiltrate. The heart is normal size IMPRESSION: No acute abnormalities displayed
--- NOTE | 2022-10-06 15:18 | ER ---
Nurse's Notes [facility] Name: Shari Estrella Age: 32 yrs Sex: Female : 1990 Arrival Date: 10/06/2022 Time: 12:17 Bed 6 Private MD: Diagnosis: Pyelonephritis acute;Fever, unspecified;Severe sepsis without septic shock Presentation: 10/06 12:27 Chief complaint: Chief complaint: EMS states: back pain, fever, possible UTI X 4--5 iw days, hx of frequent UTI's. 12:29 Acuity: SAMAN 3 iw 14:19 Coronavirus screen: Client presents with at least one sign or symptom that may indicate iw coronavirus-19. Coronavirus screen: Vaccine status:. Ebola Screen: Patient negative for fever greater than or equal to 101.5 degrees Fahrenheit, and additional compatible Ebola Virus Disease symptoms Patient denies exposure to infectious person. Patient denies travel to an Ebola-affected area in the 21 days before illness onset. No symptoms or risks identified at this time. Initial Sepsis Screen: Does the patient meet any 2 criteria? Temp <36.0*C (96.8*F)) or > 38.3*C (100.9*F). HR > 90 bpm. Does the patient have a suspected source of infection? Yes: Dysuria/Frequency/Urgency/UTI. Risk Assessment: Do you want to hurt yourself or someone else? Patient reports no desire to harm self or others. Onset of symptoms was October 02, 2022. 14:19 Method Of Arrival: EMS: [facility] iw Triage Assessment: 18:05 General: Appears in no apparent distress. Behavior is calm, cooperative. Pain: iw Complains of pain in back. Historical: - Allergies: 12:58 Latex, Natural Rubber; jl7 12:58 Sulfa (Sulfonamide Antibiotics); jl7 12:58 Toradol; jl7 - PMHx: 12:58 Hypertension; spina bifida; jl7 - PSHx: 12:58 Bladder; Spinal; jl7 - Social history:: Smoking status: Patient denies any tobacco usage or history of. Screenin:52 Abuse screen: Denies threats or abuse. Denies injuries from another. Nutritional iw screening: No deficits noted. Tuberculosis screening: No symptoms or risk factors identified. 14:00 [facility] ED Fall Risk Assessment (Adult) History of falling in the last 3 months, iw including since admission No falls in past 3 months (0 pts). Assessment: 13:00 Neuro: Level of Consciousness is awake, alert, obeys commands. iw 13:52 Reassessment: Patient appears in no apparent distress at this time. Patient and/or iw family updated on plan of care and expected duration. Pain level reassessed. Patient is alert, oriented x 3, equal unlabored respirations, skin warm/dry/pink. 15:01 Reassessment: Patient appears in no apparent distress at this time. Patient and/or iw family updated on plan of care and expected duration. Pain level reassessed. Patient is alert, oriented x 3, equal unlabored respirations, skin warm/dry/pink. Patient states feeling better. Patient states symptoms have improved. 18:05 Reassessment: Patient appears in no apparent distress at this time. Patient and/or iw family updated on plan of care and expected duration. Pain level reassessed. Patient is alert, oriented x 3, equal unlabored respirations, skin warm/dry/pink. 18:10 Reassessment: attempt to call report , will call me back. iw Vital Signs: 12:23 BP 146 / 98; Pulse 97; Resp 16; Temp 101.2; Pulse Ox 100% on R/A; zm 12:57 Weight 34 kg (M); iw 15:00 BP 121 / 77; Pulse 89; Resp 16 S; Temp 99.2(O); Pulse Ox 100% on R/A; iw 17:41 Height 5 ft. 0 in. (152.40 cm) (R); aa5 17:41 Body Mass Index 14.64 (34.00 kg, 152.40 cm) aa5 ED Course: 12:17 Patient arrived in ED. iw 12:19 [facility]tan [facility]NP [facility] 7 12:19 Amaury Paiz DO is Attending Physician. 7 12:25 Apurva Saeed, RN is Primary Nurse. iw 12:29 Triage completed. iw 13:31 COVID-19/FLU A+B Sent. zm 13:52 Patient has correct armband on for positive identification. Bed in low position. iw 15:05 Apurva Saeed, RN is Primary Nurse. iw 15:06 Client placed on continuous cardiac and pulse oximetry monitoring. NIBP monitoring iw applied. 15:17 Roshan Ford MD is Hospitalizing Provider. ms3 18:10 No provider procedures requiring assistance completed. Patient admitted, IV remains in iw place. Administered Medications: 13:25 Drug: Tylenol 650 mg Route: PO; iw 13:47 Drug: NS 0.9% (30 ml/kg) 30 ml/kg Route: IV; Rate: bolus; Site: Port-a-cath; jl7 13:47 Drug: morphine 2 mg Route: IVP; Infused Over: 4 mins; Site: left antecubital; jl7 13:47 Drug: Zofran (Ondansetron) 4 mg Route: IVP; Site: Port-a-cath; jl7 15:10 Drug: Rocephin (cefTRIAXone) 1 grams Route: IV; Rate: 1 calculated rate; Site: iw Port-a-cath; 17:41 Drug: Meropenem 1 grams Route: IV; Rate: bolus; Site: Port-a-cath; iw 17:41 Drug: morphine 4 mg Route: IVP; Infused Over: 4 mins; Site: Port-a-cath; iw 18:31 Drug: vancoMYCIN 1 grams Route: IVPB; Infused Over: 2 hrs; Site: Port-a-cath; iw Medication: 18:11 VIS not applicable for this client. iw Outcome: 15:18 Decision to Hospitalize by Provider. ms3 18:10 Condition: good iw 18:38 Patient left the ED. iw Signatures: Apurva Saeed RN RN iw Shiela Hooks RN RN aa5 Bryanna Waddell RN RN jl7 Amaury Paiz DO DO ms3 Jigna Kilgore Jennifer, SENIOR C DEVELOPER SENIOR C DEVELOPER 7 Corrections: (The following items were deleted from the chart) 14:20 12:27 Chief complaint: iw iw 17:43 17:41 Height 5 ft. 1 in. Reported; BMI: 14.1; aa5 aa5
--- NOTE | 2022-10-06 15:18 | EDPHYS ---
Physician Documentation [facility] Name: Shari Estrella Age: 32 yrs Sex: Female : 1990 Arrival Date: 10/06/2022 Time: 12:17 Bed 6 Private MD: ED Physician Amaury Paiz HPI: 10/06 12:20 This 32 yrs old Female presents to ER via Unassigned with complaints of Back Pain, jh7 Fever. 12:20 The patient presents with pain that is acute, with no known mechanism of injury. The jh7 symptoms are located in the left low back and right low back. Onset: The symptoms/episode began/occurred 4 day(s) ago. Associated signs and symptoms: Pertinent positives: dysuria, fever, Pertinent negatives: chest pain, nausea, vomiting. 32-year-old female complains of UTI symptoms, fever, bilateral flank pain for the past 3 to 4 days. Reports that she took ibuprofen at 7 AM.. Historical: - Allergies: 12:58 Latex, Natural Rubber; jl7 12:58 Sulfa (Sulfonamide Antibiotics); jl7 12:58 Toradol; jl7 - PMHx: 12:58 Hypertension; spina bifida; jl7 - PSHx: 12:58 Bladder; Spinal; jl7 - Social history:: Smoking status: Patient denies any tobacco usage or history of. ROS: 12:20 Eyes: Negative for injury, pain, redness, and discharge. jh7 12:20 ENT: Negative for injury, pain, and discharge, Neck: Negative for injury, pain, and swelling, Cardiovascular: Negative for chest pain, palpitations, and edema, Respiratory: Negative for shortness of breath, cough, wheezing, and pleuritic chest pain, Abdomen/GI: Negative for abdominal pain, nausea, vomiting, diarrhea, and constipation, MS/Extremity: Negative for injury and deformity, Skin: Negative for injury, rash, and discoloration, Neuro: Negative for headache, weakness, numbness, tingling, and seizure. 12:20 Constitutional: Positive for fever. 12:20 Back: Positive for flank pain, bilaterally. 12:20 : Positive for urinary symptoms. 12:20 All other systems are negative. Exam: 12:20 Constitutional: This is a well developed, well nourished patient who is awake, alert, jh7 and in no acute distress. Head/Face: Normocephalic, atraumatic. Eyes: Pupils equal round and reactive to light, extra-ocular motions intact. Lids and lashes normal. Conjunctiva and sclera are non-icteric and not injected. Cornea within normal limits. Periorbital areas with no swelling, redness, or edema. ENT: Nares patent. No nasal discharge, no septal abnormalities noted. Tympanic membranes are normal and external auditory canals are clear. Oropharynx with no redness, swelling, or masses, exudates, or evidence of obstruction, uvula midline. Mucous membranes moist. Neck: Trachea midline, no thyromegaly or masses palpated, and no cervical lymphadenopathy. Supple, full range of motion without nuchal rigidity, or vertebral point tenderness. No Meningismus. Cardiovascular: Regular rate and rhythm with a normal S1 and S2. No gallops, murmurs, or rubs. Normal PMI, no JVD. No pulse deficits. Respiratory: Lungs have equal breath sounds bilaterally, clear to auscultation and percussion. No rales, rhonchi or wheezes noted. No increased work of breathing, no retractions or nasal flaring. Abdomen/GI: Soft, non-tender, with normal bowel sounds. No distension or tympany. No guarding or rebound. No evidence of tenderness throughout. Skin: Warm, dry with normal turgor. Normal color with no rashes, no lesions, and no evidence of cellulitis. MS/ Extremity: Pulses equal, no cyanosis. Neurovascular intact. Full, normal range of motion. Neuro: Awake and alert, GCS 15, oriented to person, place, time, and situation. Sensory grossly intact. 12:20 Back: CVA tenderness, that is moderate, is noted bilaterally. Vital Signs: 12:23 BP 146 / 98; Pulse 97; Resp 16; Temp 101.2; Pulse Ox 100% on R/A; zm 12:57 Weight 34 kg (M); iw 15:00 BP 121 / 77; Pulse 89; Resp 16 S; Temp 99.2(O); Pulse Ox 100% on R/A; iw 17:41 Height 5 ft. 0 in. (152.40 cm) (R); aa5 17:41 Body Mass Index 14.64 (34.00 kg, 152.40 cm) aa5 MDM: 12:20 Patient medically screened. [facility] 15:11 Transition of care: Care assumed from Marija OLIVEIRA. ms3 15:15 Differential diagnosis: Pyelonephritis Ureterolithiasis COVID. Data reviewed: vital ms3 signs, nurses notes, lab test result(s), and as a result, I will admit patient. Consideration of Admission/Observation Patient was admitted/placed on observation. Management of patient was discussed with the following: Hospitalist: Dr Ford. I considered the following discharge prescriptions or medication management in the emergency department Medications were administered in the Emergency Department. See MAR. Independent interpretation of the following test(s) in the Emergency Department educational therapist: rate is 90 beats/min, Rhythm is normal sinus rhythm, regular, with no ectopy, Interpretation: normal rate, normal rhythm. Historians other than the Patient: EMS: Rolando Virk. Counseling: I had a detailed discussion with the patient and/or guardian regarding: the historical points, exam findings, and any diagnostic results supporting the discharge/admit diagnosis, lab results, radiology results, the need for further work-up and treatment in the hospital. ED course: Discussed plan with patient and she understands/ agrees with plan. All questions answered. Discussed case with Dr Ford and he accepts patient.. 10/06 12:25 Order name: Blood Culture Adult (2) [facility] 10/06 12:25 Order name: CBC with Diff [facility] 10/06 12:25 Order name: CMP [facility] 10/06 12:25 Order name: Lactate w/ 2H reflex if indic. [facility] 10/06 12:25 Order name: Protime (+inr) [facility] 10/06 12:25 Order name: Ptt, Activated [facility] 10/06 12:25 Order name: Urine Culture [facility] 10/06 12:25 Order name: Urine Microscopic Only [facility] 10/06 12:25 Order name: Chest Single View XRAY [facility] 10/06 12:25 Order name: EKG; Complete Time: 12:26 [facility] 10/06 12:25 Order name: Accucheck; Complete Time: 13:31 [facility] 10/06 12:25 Order name: Cardiac monitoring; Complete Time: 13:06 [facility] 10/06 12:25 Order name: EKG - Nurse/Tech; Complete Time: 13:06 [facility] 10/06 12:25 Order name: IV Saline Lock - Large Bore; Complete Time: 14:19 [facility] 10/06 12:25 Order name: Labs collected and sent; Complete Time: 13:47 [facility] 10/06 12:25 Order name: O2 Per Protocol; Complete Time: 13:06 [facility] 10/06 12:25 Order name: O2 Sat Monitoring; Complete Time: 13:06 [facility] 10/06 12:25 Order name: Urine Dipstick-Ancillary (obtain specimen); Complete Time: 14:19 [facility] 10/06 12:25 Order name: Urine Test (obtain specimen); Complete Time: 14:19 [facility] 10/06 12:25 Order name: Vital Signs; Complete Time: 13:06 [facility] 10/06 12:25 Order name: CT Abd/Pelvis - IV Contrast Only [facility] 10/06 12:54 Order name: COVID-19/FLU A+B [facility] 10/06 13:24 Order name: Glucose, Ancillary Testing; Complete Time: 13:34 [facility] 10/06 14:06 Order name: COVID-19/FLU A+B; Complete Time: 14:07 [facility] 10/06 14:18 Order name: Comprehensive Metabolic Panel; Complete Time: 14:22 [facility] 10/06 14:20 Order name: CBC with Automated Diff; Complete Time: 16:34 [facility] 10/06 14:24 Order name: Urine Dipstick-Ancillary; Complete Time: 14:25 [facility] 10/06 14:28 Order name: Urine --Ancillary (enter results) 10/06 14:33 Order name: Lactate w/ 2H reflex if indic.; Complete Time: 14:40 [facility] 10/06 14:35 Order name: Urine Microscopic Only; Complete Time: 14:40 [facility] 10/06 14:57 Order name: Recheck Vital Signs; Complete Time: 15:02 [facility] 10/06 15:04 Order name: CT; Complete Time: 15:06 [facility] 10/06 15:05 Order name: Urine --Ancillary; Complete Time: 15:06 [facility] 10/06 15:07 Order name: RAD; Complete Time: 15:10 [facility] 10/06 15:25 Order name: CBC Smear Scan; Complete Time: 16:34 [facility] 10/06 15:27 Order name: Protime (+INR); Complete Time: 16:34 [facility] 10/06 15:27 Order name: PTT, Activated Partial Thromb; Complete Time: 16:34 [facility] 10/06 16:21 Order name: Diet Regular; Complete Time: 16:21 eb EC:19 Rate is 88 beats/min. Rhythm is regular. QRS Oark is Normal. NE interval is normal at jh7 118 msec. QRS interval is normal at 72 msec. QT interval is normal at 330 msec. No Q waves. T waves are Inverted in leads V2, V3. Clinical impression: Normal Sinus Rhythm. Administered Medications: 13:25 Drug: Tylenol 650 mg Route: PO; iw 13:47 Drug: NS 0.9% (30 ml/kg) 30 ml/kg Route: IV; Rate: bolus; Site: Port-a-cath; jl7 13:47 Drug: morphine 2 mg Route: IVP; Infused Over: 4 mins; Site: left antecubital; jl7 13:47 Drug: Zofran (Ondansetron) 4 mg Route: IVP; Site: Port-a-cath; jl7 15:10 Drug: Rocephin (cefTRIAXone) 1 grams Route: IV; Rate: 1 calculated rate; Site: iw Port-a-cath; 17:41 Drug: Meropenem 1 grams Route: IV; Rate: bolus; Site: Port-a-cath; iw 17:41 Drug: morphine 4 mg Route: IVP; Infused Over: 4 mins; Site: Port-a-cath; iw 18:31 Drug: vancoMYCIN 1 grams Route: IVPB; Infused Over: 2 hrs; Site: Port-a-cath; Disposition: 15:15 Co-signature as Attending Physician, Amaury Paiz DO. ms3 Disposition Summary: 10/06/22 15:18 Hospitalization Ordered Hospitalization Status: Inpatient Admission ms3 Provider: Roshan Ford ms3 Location: Telemetry/MedSurg (Inpatient) ms3 Condition: Stable ms3 Problem: new ms3 Bed/Room Type: Standard ms3 Symptoms: have improved(10/06/22 15:18) ms3 Room Assignment: 216(10/06/22 17:30) jl7 Diagnosis - Sepsis without end organ dysfunction ms3 - Pyelonephritis acute ms3 - Fever, unspecified ms3 - Severe sepsis without septic shock ms3 Forms: - Medication Reconciliation Form ms3 - SBAR form ms3 Signatures: Dispatcher [employer] Apurva Schulz RN RN iw Shiela Hooks RN RN aa5 Bryanna Waddell RN RN jl7 Amaury Paiz, DO SINGH ms3 Marija Gaytan, STRIP TANK TENDER STRIP TANK TENDER jh7 Corrections: (The following items were deleted from the chart) 15:18 15:18 are unchanged ms3 ms3 17:30 15:18 ms3 jl7
[2022-10-06 15:25] LABS: Blood Morphology Comment NOT SEEN (NOT SEEN); Platelet Estimate DECR; White Blood Cell Scan OK (OK)
[2022-10-06 15:27] LABS: Protime INR 1.2
[2022-10-06] MEDS ORDERED: VANCOMYCIN 1 GM in NA CHLORIDE 0.9% 250 ML IVPB SCH (17:22)
--- NOTE | 2022-10-06 17:34 | P.HP ---
Certification for Inpatient Patient admitted to: Inpatient With expected LOS: >2 Midnights Patient will require the following post-hospital care: Home Health Services Practitioner: I am a practitioner with admitting privileges, knowledge of patient current condition, hospital course, and medical plan of care. Services: Services provided to patient in accordance with Admission requirements found in Title 42 Section 412.3 of the Code of Federal Regulations Patient History Date of Service: 10/06/22 Reason for admission: Severe Sepsis History of Present Illness: Ms. Shari Estrella is a 32 year old female who has a past medical history of spinda bifida complicated by neurogenic bladder, chronic pain syndrome, severe scoliosis, and hypertension who presents to the [facility] Emergency Department for dysuria. She reports that, over the last 3 days, she has been experiencing dysuria. She states that this has been associated with left-sided flank pain. She states that the pain is sharp and non-radiating. She grades it as severe. She denies any obvious inciting or alleviating factors. She has tried taking her home oxycodo ne-acetaminophen, without alleviation of her symptoms. On review of systems, she reports fevers, but denies chills, headaches, dizziness, chest pain, palpitations, shortness of breath, wheezing, cough, abdominal pain, nausea/vomiting, diarrhea, constipation, hematochezia, melena, hematuria, myalgia, or any other symptoms. She presented to the Emergency Department for further evaluation. Upon presentation, her vital signs were notable for a temperature of 101.2 F and a heart rate of 97 bpm. Her laboratory studies were notable for a platelet count of 75,000. Blood cultures x 2 were obtained. EKG revealed sinus rhythm without STEMI criteria. Her chest x-ray revealed, "no acute abnormalities displayed." Her CT abdomen/pelvis revealed, "cholelithiasis. 3 millimeter calculus which is not obstructing the renal pelvis. There is borderline left hydronephrosis of questionable significance. Sclerosis left ischium probably chronic osteomyelitis." In the Emergency Department, she was given ceftriaxone, meropenem, ondansetron, actaminophen, and 30 mL/kg Normal Saline. She was admitted to the General Internal Medicine service for further evaluation. Allergies adhesive tape Allergy (Verified 07/29/19 01:10) Rash Latex, Natural Rubber Allergy (Verified 07/29/19 01:10) Rash Sulfa (Sulfonamide Antibiotics) Allergy (Verified 07/29/19 01:10) Hives/Rash sulfamethoxazole [From Bactrim] Allergy (Verified 07/29/19 01:10) Hives trimethoprim [From Bactrim] Allergy (Verified 07/29/19 01:10) Hives vancomycin Allergy (Verified 07/29/19 01:10) Hives/Rash Adhesives Allergy (Uncoded 07/08/17 16:36) Unknown Home medications list reviewed: Yes Home Medications: RX: Atenolol [Tenormin] 100 mg PO DAILY 02/17/20 RX: Oxycodone HCl/Acetaminophen [Oxycodone-Acetaminophen 10-325] 1 each PO Q6HP PRN 02/17/20 - Past Medical/Surgical History Diabetic: No -: Stage 4 decubitus ulcer -: Spina Bifida -: MRSA -: scoliosis -: HTN -: GERD -: Osteomyelitis -: Recurrent UTI -: Multiple back surgeries -: Right great toe amputated -: bowel surgery cecostomy -: Suprapubic stoma -: [employer]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[employer]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 Psychosocial/ Personal History: Patient lives at home - Family History Mother -: Hypertension, Diabetes, Other (see notes) Notes: Lupus Father -: Hypertension, Diabetes Notes: Hyperlipidemia - Social History Smoking Status: Never smoker Alcohol use: No CD- Drugs: No Caffeine use: No Review of Systems General: Fever Eyes: Unremarkable ENT: Unremarkable Respiratory: Unremarkable Cardiovascular: Unremarkable Gastrointestinal: Unremarkable Genitourinary: Dysuria, Other (self-cath) Musculoskeletal: Back Pain (left flank) Integumentary: Unremarkable Neurological: As per HPI Physical Examination - Vital Signs Temperature: 99.2 F Blood Pressure: 121/77 Pulse: 89 Respirations: 16 Pulse Ox (%): 100 - Physical Exam General: Alert, In no apparent distress, Oriented x3 HEENT: Atraumatic, Mucous membr. moist/pink, EOMI, Sclerae nonicteric Neck: JVD not distended Respiratory: Clear to auscultation bilaterally, Normal air movement Cardiovascular: No edema, Regular rate/rhythm, Normal S1 S2, No gallops, No rubs, No murmurs Gastrointestinal: Normal bowel sounds, Soft and benign, No tenderness Musculoskeletal: No clubbing Integumentary: Pressure ulcer (healing sacral wound, ED CHATA Gould present for exam) Neurological: Normal speech, Normal affect, Other (severe scoliosis with diffuse muscle atrophy) - Studies Laboratory Data (last 24 hrs) 10/06/22 15:11: PT 13.2 H, INR 1.20, APTT 33.8 10/06/22 13:41: Sodium 137, Potassium 3.5, BUN 4 L, Creatinine 0.35 L, Glucose 118 H, Total Bilirubin 0.2, AST 17, ALT 18, Alkaline Phosphatase 88 10/06/22 13:41: WBC 9.30, Hgb 13.6, Hct 41.4, Plt Count 75 L* Assessment and Plan - Plan # Severe Sepsis likely secondary to Self-Catheter Associated Urinary Tract Infection - POA # 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 Severe sepsis is suspected due to concern for tissue hypoperfusion/organ dysfunction based on platelet count < 100,000 - Consulted Infectious Diseases and spoke with Dr. Ibarra - recommendations appreciated - Sepsis order set was initiated - Urinalysis nitrite positive, 1+ leukocyte esterase, 20-50 bacteria, trace protein - Lactate was 1.1 - Blood cultures drawn before antibiotics were given - Broad spectrum antibiotics started: Meropenem + Doxycycline (has Vancomycin allergy) - In regards to fluids: - 30 mL/kg of IV Normal Saline was given based on patient's actual body weight - Wound care consulted # Chronic Pain Syndrome secondary to Severe Scoliosis - Continue home oxycodone-acetaminophen, with breakthrough morphine # Hypertension - Hold home atenolol due to concern for severe sepsis Roshan Ford M.D. Discharge Plan: Home Plan to discharge in: Greater than 2 days - Advance Directives Does patient have a Living Will: No Does patient have a Durable POA for Healthcare: No - Code Status/Comfort Care Code Status Assessed: Yes Code Status: Full Code
[2022-10-06] MEDS ORDERED: Meropenem 1000 MG/VIAL IV ONE (17:37)
[2022-10-06] MEDS ORDERED: MORPHINE 4 MG/ML SYR ONE (17:38)
[2022-10-06] MEDS ORDERED: NA CHLORIDE 0.9% 100 ML ONE (17:38)
[2022-10-06] MEDS: Meropenem 1,000 MG in NA CHLORIDE 0.9% 100 ML IV SCH (18:00)
[2022-10-06] MEDS: DOXYCYCLINE 100 MG in NA CHLORIDE 0.9% 100 ML IVPB SCH (18:00)
[2022-10-06] MEDS ORDERED: VANCOMYCIN 1 GM/VIAL ONE (18:20)
[2022-10-06] MEDS ORDERED: NA CHLORIDE 0.9% 250 ML ONE (18:20)
[2022-10-06] MEDS: MORPHINE 2 MG/ML SYR IV PRN (22:19)
[2022-10-06] MEDS ORDERED: DIPHENHYDRAMINE 25 MG TAB/CAP PO ONE (23:39)
[2022-10-07] MEDS: Meropenem 1,000 MG in NA CHLORIDE 0.9% 100 ML IV SCH ×3 (01:07→16:44)
[2022-10-07] MEDS: OXYCODONE HCL 5 MG TAB PO PRN ×3 (01:31→16:46)
[2022-10-07] MEDS: Oxycodone HCl/Acetaminophen 1 TAB TAB PO PRN ×3 (01:33→16:45)
[2022-10-07 02:14] VITALS: BMI 14.4
[2022-10-07] MEDS: DOXYCYCLINE 100 MG in NA CHLORIDE 0.9% 100 ML IVPB SCH ×2 (05:43→18:15)
[2022-10-07 06:05] LABS: Absolute Lymphocytes (CBC) 1.4 K/uL (0.7-4.9); Lymphocytes % 21.1 % (15.3-44.8); MPV 7.5 fL (7.6-11.3); RBC Red Blood Cell Count 3.47 M/uL (3.86-4.86)
[2022-10-07 06:10] LABS: Protime INR 1.31
[2022-10-07 06:18] LABS: Magnesium 1.9 mg/dL (1.6-2.4); Potassium 3.5 mmol/L (3.5-5.1)
[2022-10-07] MEDS: MORPHINE 2 MG/ML SYR IV PRN ×3 (06:54→20:04)
--- NOTE | 2022-10-07 14:53 | P.PN ---
Subjective Date of Service: 10/07/22 Chief Complaint: Severe Sepsis No acute events overnight. No recurrent fevers since admission. She reports that her symptoms are unchanged compared to yesterday. She denies any chest pain, palpitations, or shortness of breath. Review of Systems 10-point ROS is otherwise unremarkable General: Fever Genitourinary: Dysuria Physical Examination - Vital Signs Temperature: 97.9 F Blood Pressure: 103/51 Pulse: 83 Respirations: 17 Pulse Ox (%): 95 - Studies Laboratory Data (last 24 hrs) 10/06/22 15:11: PT 13.2 H, INR 1.20, APTT 33.8 10/06/22 13:41: WBC 9.30, Hgb 13.6, Hct 41.4, Plt Count 75 L* Microbiology Data (last 24 hrs): 10/06/22 13:41 Blood - Blood Anaerobic Blood Culture - Final Assessment And Plan - Plan - Physical Exam General: Alert, In no apparent distress, Oriented x3 HEENT: Atraumatic, Sclerae nonicteric Neck: JVD not distended Respiratory: Clear to auscultation bilaterally, Normal air movement Cardiovascular: No edema, Regular rate/rhythm, No murmurs Gastrointestinal: Normal bowel sounds, Soft, No tenderness Musculoskeletal: No clubbing Integumentary: Pressure ulcer not examined this morning Neurological: Normal speech, Normal affect, Other (severe scoliosis with diffuse muscle atrophy) # Severe Sepsis likely secondary to Self-Catheter Associated Urinary Tract Infection - POA # 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 Severe sepsis is suspected due to concern for tissue hypoperfusion/organ dysfunction based on platelet count < 100,000 - Consulted Infectious Diseases and spoke with Dr. Ibarra - recommendations appreciated - Sepsis order set was initiated - Urinalysis nitrite positive, 1+ leukocyte esterase, 20-50 bacteria, trace protein - Lactate was 1.1 - Blood cultures drawn before antibiotics were given - Broad spectrum antibiotics started: Meropenem + Doxycycline (has Vancomycin allergy) - In regards to fluids: - 30 mL/kg of IV Normal Saline was given based on patient's actual body weight - Wound care consulted # Chronic Pain Syndrome secondary to Severe Scoliosis - Continue home oxycodone-acetaminophen, with breakthrough morphine # Hypertension - Hold home atenolol due to concern for severe sepsis Roshan Ford M.D.
[2022-10-07] MEDS: DIPHENHYDRAMINE 25 MG TAB/CAP PO PRN (20:49)
[2022-10-08] MEDS: Oxycodone HCl/Acetaminophen 1 TAB TAB PO PRN ×4 (00:07→20:18)
[2022-10-08] MEDS: OXYCODONE HCL 5 MG TAB PO PRN ×4 (00:07→20:19)
[2022-10-08] MEDS: Meropenem 1,000 MG in NA CHLORIDE 0.9% 100 ML IV SCH ×3 (00:07→17:47)
[2022-10-08] MEDS: DOXYCYCLINE 100 MG in NA CHLORIDE 0.9% 100 ML IVPB SCH ×2 (05:11→17:47)
[2022-10-08] MEDS: MORPHINE 2 MG/ML SYR IV PRN ×3 (05:14→17:47)
[2022-10-08 05:40] LABS: Absolute Lymphocytes (CBC) 1.8 K/uL (0.7-4.9); Hematocrit 34.3 % (36.0-45.0); MCV 97.7 fL (80-100); MPV 7.4 fL (7.6-11.3); RBC Red Blood Cell Count 3.51 M/uL (3.86-4.86)
[2022-10-08 05:54] LABS: Potassium 3.5 mmol/L (3.5-5.1)
--- NOTE | 2022-10-08 14:30 | P.PN ---
Subjective Date of Service: 10/08/22 Chief Complaint: Severe Sepsis No acute events overnight. Temperature down-trending. She reports that she feels that her symptoms are improving. Urine culture has returned positive for fluoroquinolone-resistant Escherichia Coli. She denies any chest pain, palp itations, or shortness of breath. Review of Systems 10-point ROS is otherwise unremarkable General: Fever, Chills Physical Examination - Vital Signs Temperature: 99.3 F Blood Pressure: 106/94 Pulse: 76 Respirations: 16 Pulse Ox (%): 98 - Studies Microbiology Data (last 24 hrs): 10/06/22 14:15 Clean Catch Urine [place] Count - Final >100,000 CFU/ML. 10/06/22 14:15 Clean Catch Urine - Final Escherichia Coli 10/06/22 13:41 Blood - Blood Anaerobic Blood Culture - Final Assessment And Plan - Plan - Physical Exam General: Alert, In no apparent distress, Oriented x3 HEENT: Atraumatic, Sclerae nonicteric Neck: JVD not distended Respiratory: Clear to auscultation bilaterally, Normal air movement Cardiovascular: No edema, Regular rate/rhythm, No murmurs Gastrointestinal: Normal bowel sounds, Soft, No tenderness Musculoskeletal: No clubbing Integumentary: Pressure ulcer not examined this morning Neurological: Normal speech, Normal affect, Other (severe scoliosis with diffuse muscle atrophy) # Severe Sepsis likely secondary to Fluoroquinolone-Resistant Escherichia Coli Self-Catheter Associated Urinary Tract Infection - POA # 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 Severe sepsis is suspected due to concern for tissue hypoperfusion/organ dysfunction based on platelet count < 100,000 - Consulted Infectious Diseases and spoke with Dr. Ibarra - recommendations appreciated - Sepsis order set was initiated - Urinalysis nitrite positive, 1+ leukocyte esterase, 20-50 bacteria, trace protein - Lactate was 1.1 - Blood cultures drawn before antibiotics were given - Broad spectrum antibiotics started: Meropenem + Doxycycline (has Vancomycin allergy) - Low-grade temperature to 99.4 F, will continue broad spectrum ABX today, consider weaning tomorrow if fever trend improves - In regards to fluids: - 30 mL/kg of IV Normal Saline was given based on patient's actual body weight - Urine culture = FQ-resistant E. Coli - Wound care consulted # Chronic Pain Syndrome secondary to Severe Scoliosis - Continue home oxycodone-acetaminophen, with breakthrough morphine # Hypertension - Hold home atenolol due to concern for severe sepsis Roshan Ford M.D.
[2022-10-09] MEDS: Meropenem 1,000 MG in NA CHLORIDE 0.9% 100 ML IV SCH ×2 (00:14→07:59)
[2022-10-09 00:28] VITALS: O2SAT 98
[2022-10-09] MEDS: OXYCODONE HCL 5 MG TAB PO PRN ×4 (01:37→19:30)
[2022-10-09] MEDS: Oxycodone HCl/Acetaminophen 1 TAB TAB PO PRN ×4 (01:37→19:29)
[2022-10-09 03:41] LABS: Absolute Lymphocytes (CBC) 2.3 K/uL (0.7-4.9); Hematocrit 34.8 % (36.0-45.0); Lymphocytes % 35.6 % (15.3-44.8); MCV 98.1 fL (80-100); MPV 7.7 fL (7.6-11.3); RBC Red Blood Cell Count 3.55 M/uL (3.86-4.86)
[2022-10-09] MEDS: DOXYCYCLINE 100 MG in NA CHLORIDE 0.9% 100 ML IVPB SCH (05:04)
--- NOTE | 2022-10-09 09:22 | P.CNS ---
Date of Consult: 10/09/22 Chief Complaint: Severe Sepsis History of Present Illness: Ms. Shari Estrella is a 32 year old female who has a past medical history of spinda bifida complicated by neurogenic bladder, chronic pain syndrome, severe scoliosis, and hypertension who presents to the [facility] Emergency Department for dysuria. She reports that, over the last 3 days, she has been experiencing dysuria. She states that this has been associated with left-sided flank pain. She states that the pain is sharp and non-radiating. She grades it as severe. She denies any obvious inciting or alleviating factors. She has tried taking her home oxycodone-acetaminophen, without alleviation of her symptoms. On review of systems, she reports fevers, but denies chills, headaches, dizziness, chest pain, palpitations, shortness of breath, wheezing, cough, abdominal pain, nausea/vomiting, diarrhea, constipation, hematochezia, melena, hematuria, myalgia, or any other symptoms. She presented to the Emergency Department for further evaluation. Upon presentation, her vital signs were notable for a temperature of 101.2 F and a heart rate of 97 bpm. Her laboratory studies were notable for a platelet count of 75,000. Blood cultures x 2 were obtained. EKG revealed sinus rhythm without STEMI criteria. Her chest x-ray revealed, "no acute abnormalities displayed." Her CT abdomen/pelvis revealed, "cholelithiasis. 3 millimeter calculus which is not obstructing the renal pelvis. There is borderline left hydronephrosis of questionable significance. Sclerosis left ischium probably chronic osteomyelitis." In the Emergency Department, she was given ceftriaxone, meropenem, ondansetron, actaminophen, and 30 mL/kg Normal Saline. She was admitted to the General Internal Medicine service for further evaluation ID has been consulted for further IV antibiotics recommendations and management for E. Coli UTI Allergies adhesive tape Allergy (Mild, Verified 10/06/22 22:08) Rash Latex, Natural Rubber Allergy (Verified 10/06/22 22:08) Rash Sulfa (Sulfonamide Antibiotics) Allergy (Verified 10/06/22 22:08) Hives/Rash sulfamethoxazole [From Bactrim] Allergy (Verified 10/06/22 22:08) Hives trimethoprim [From Bactrim] Allergy (Verified 10/06/22 22:08) Hives vancomycin Allergy (Verified 10/06/22 22:08) Hives/Rash Adhesives Allergy (Mild, Uncoded 10/06/22 22:08) Rash Home Medications: Atenolol [Tenormin] 100 mg PO DAILY 02/17/20 Diphenhydramine HCl [Benadryl Allergy] 50 mg PO BEDTIME 10/06/22 Oxycodone HCl/Acetaminophen [Oxycodone-Acetaminophen 10-325] 10 - 325 mg PO Q6HP PRN 10/06/22 - Past Medical/Surgical History Diabetic: No -: Stage 4 decubitus ulcer -: Spina Bifida -: MRSA -: scoliosis -: HTN -: GERD -: Osteomyelitis -: Recurrent UTI -: Multiple back surgeries -: Right great toe amputated -: bowel surgery cecostomy -: Suprapubic stoma -: 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 Psychosocial/ Personal History: Patient lives at home - Family History Mother Medical History: Hypertension, Diabetes, Other (see notes) Notes: Lupus Father Medical History: Hypertension, Diabetes Notes: Hyperlipidemia - Social History Smoking Status: Current every day smoker Alcohol use: No CD- Drugs: No Caffeine use: No Place of Residence: Home Review of Systems 10-point ROS is otherwise unremarkable Gastrointestinal: Nausea, Diarrhea Genitourinary: As per HPI Musculoskeletal: As per HPI Physical Examination Temp Pulse Resp BP Pulse Ox 98.3 F 85 16 129/74 100 10/09/22 08:00 10/09/22 08:00 10/09/22 08:00 10/09/22 08:00 10/09/22 08:00 General: Alert, In no apparent distress, Oriented x3 Respiratory: Clear to auscultation bilaterally Cardiovascular: No edema, Normal S1 S2 Gastrointestinal: Normal bowel sounds Musculoskeletal: Scoliosis Integumentary: No rashes, No breakdown Neurological: Normal speech, Normal tone, Sensation intact, Normal affect current medications Diphenhydramine HCl (Diphenhydramine 25 Mg Tab/Cap) 25 mg PO BEDTIME PRN PRN Reason: INSOMNIA Last Admin: 10/07/22 20:49 Dose: 25 mg Meropenem 1,000 mg/ Sodium (Chloride) 100 mls @ 200 mls/hr IV Q8HR TAZ Last Admin: 10/09/22 07:59 Dose: 100 mls Doxycycline Hyclate 100 mg/ (Sodium Chloride) 100 mls @ 100 mls/hr IVPB Q12H [facility] Last Admin: 10/09/22 05:04 Dose: 100 mls Morphine Sulfate (Morphine 2 Mg/Ml Syr) 2 mg IV Q4H PRN PRN Reason: Pain scale 8-10 (Severe) Last Admin: 10/08/22 17:47 Dose: 2 mg Oxycodone HCl (Oxycodone Hcl 5 Mg Tab) 5 mg PO Q6HP PRN PRN Reason: Pain scale 5-7 (Moderate) Last Admin: 10/09/22 06:46 Dose: 5 mg Oxycodone/Acetaminophen (Oxycodone Hcl/Acetaminophen 1 Tab Tab) 1 tab PO Q6HP PRN PRN Reason: Pain scale 5-7 (Moderate) Last Admin: 10/09/22 06:45 Dose: 1 tab Sodium Chloride (Flush Normal Saline 10 Ml) 10 ml IV BID [facility] Last Admin: 10/08/22 20:23 Dose: 10 ml Microbiology 10/06/22 14:15 Clean Catch Urine [place] Count - Final >100,000 CFU/ML. 10/06/22 14:15 Clean Catch Urine - Final Escherichia Coli 10/06/22 15:11 Blood - Blood Aerobic Blood Culture - Preliminary No growth in 24 hours. 10/06/22 15:11 Blood - Blood Anaerobic Blood Culture - Preliminary No growth in 24 hours. 10/06/22 13:41 Blood - Blood Aerobic Blood Culture - Preliminary No growth in 24 hours. 10/06/22 13:41 Blood - Blood Anaerobic Blood Culture - Final Imagings Data: [facility] Single View10/06/2022 FINDINGS: Marked scoliosis. Central venous line is in place. 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 courses the right chest and abdomen The lungs appear clear of acute infiltrate. The heart is normal size IMPRESSION: No acute abnormalities displayed CT - Abdomen Pelvis W Contrast - 10/06/2022 FINDINGS: Liver, spleen, pancreas, adrenals and right kidney unremarkable 3 millimeter calculus left kidney. Borderline left hydronephrosis Two cholelithiasis. Gallbladder wall does not appear thickened. Peritoneal catheter in place. Spina bifida with marked scoliosis. Meningocele spine Posterior left lower pelvis soft tissue ulceration. Sclerosis left ischium Postsurgical changes bladder and bowel IMPRESSION: Cholelithiasis. 3 millimeter calculus which is not obstructing the renal pelvis. There is borderline left hydronephrosis of questionable significance Sclerosis left ischium probably chronic osteomyelitis. - Problems (1) Recurrent UTI Plan: Cultures: - 10/06 UC: E. 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 Ibarra N Thank you Dr. Ivory for consultation
[2022-10-09] MEDS: MORPHINE 2 MG/ML SYR IV PRN ×2 (12:28→22:17)
[2022-10-09] MEDS: CEFTRIAXONE 1,000 MG in NA CHLORIDE 0.9% 50 ML IVPB SCH (13:59)
--- NOTE | 2022-10-09 16:48 | EKG ---
Test Date: 2022-10-06 Test Time: 13:19:47 Skin Toggler: NANY MEASUREMENT RESULTS: Intervals: Rate: 88 MA: 118 QRSD: 72 QT: 330 QTc: 399 [place]: P: 27 MA: 118 QRS: 31 T: 12 INTERPRETIVE STATEMENTS: Normal sinus rhythm T wave abnormality, consider anterior ischemia Abnormal ECG Compared to ECG 08/06/2021 14:26:18 Sinus tachycardia no longer present T-wave abnormality still present Possible ischemia still present Electronically Signed On 10-09-22 16:40:11 B2B ACCOUNT EXECUTIVE by Dimas Orellana
[2022-10-09] MEDS: DIPHENHYDRAMINE 25 MG TAB/CAP PO PRN (21:31)
[2022-10-10] MEDS: Oxycodone HCl/Acetaminophen 1 TAB TAB PO PRN ×3 (06:02→19:12)
[2022-10-10] MEDS: OXYCODONE HCL 5 MG TAB PO PRN ×3 (06:02→19:13)
[2022-10-10 07:43] LABS: Absolute Lymphocytes (CBC) 2.2 K/uL (0.7-4.9); Hematocrit 39.4 % (36.0-45.0); Lymphocytes % 29.8 % (15.3-44.8); MCV 98.2 fL (80-100); MPV 7.9 fL (7.6-11.3); RBC Red Blood Cell Count 4.02 M/uL (3.86-4.86)
[2022-10-10 08:21] LABS: Potassium 4.3 mmol/L (3.5-5.1)
--- NOTE | 2022-10-10 08:23 | P.PN ---
Subjective Date of Service: 10/10/22 Chief Complaint: Severe Sepsis Patient sitting in bed with RNs at the bedside straight cath the patient. No major event upon examination Physical Examination - Vital Signs Temperature: 97.8 F Blood Pressure: 117/74 Pulse: 72 Respirations: 18 Pulse Ox (%): 97 - Physical Exam General: Alert, In no apparent distress, Oriented x3 Respiratory: Clear to auscultation bilaterally Cardiovascular: No edema, Normal S1 S2 Gastrointestinal: Normal bowel sounds Musculoskeletal: Scoliosis, Other (Spinal bifida) Integumentary: No rashes, No significant lesion Neurological: Normal speech, Normal tone, Sensation intact, Normal affect, Other (spinal bifida) Urinary: Other (straight cath, urine yellow with some white sediment) - Studies active medications Diphenhydramine HCl (Diphenhydramine 25 Mg Tab/Cap) 25 mg PO BEDTIME PRN PRN Reason: INSOMNIA Last Admin: 10/09/22 21:31 Dose: 25 mg Ceftriaxone Sodium 1,000 mg/ (Sodium Chloride) 50 mls @ 100 mls/hr IVPB DAILY [facility] Stop: 10/19/22 13:01 Last Admin: 10/09/22 13:59 Dose: 50 mls Morphine Sulfate (Morphine 2 Mg/Ml Syr) 2 mg IV Q4H PRN PRN Reason: Pain scale 8-10 (Severe) Last Admin: 10/09/22 22:17 Dose: 2 mg Oxycodone HCl (Oxycodone Hcl 5 Mg Tab) 5 mg PO Q6HP PRN PRN Reason: Pain scale 5-7 (Moderate) Last Admin: 10/10/22 06:02 Dose: 5 mg Oxycodone/Acetaminophen (Oxycodone Hcl/Acetaminophen 1 Tab Tab) 1 tab PO Q6HP PRN PRN Reason: Pain scale 5-7 (Moderate) Last Admin: 10/10/22 06:02 Dose: 1 tab Sodium Chloride (Flush Normal Saline 10 Ml) 10 ml IV BID TAZ Last Admin: 10/09/22 21:32 Dose: 10 ml Microbiology Data (last 24 hrs): Microbiology 10/06/22 14:15 Clean Catch Urine [place] Count - Final >100,000 CFU/ML. 10/06/22 14:15 Clean Catch Urine - Final Escherichia Coli 10/06/22 15:11 Blood - Blood Aerobic Blood Culture - Preliminary No growth in 24 hours. 10/06/22 15:11 Blood - Blood Anaerobic Blood Culture - Preliminary No growth in 24 hours. 10/06/22 13:41 Blood - Blood Aerobic Blood Culture - Preliminary No growth in 24 hours. 10/06/22 13:41 Blood - Blood Anaerobic Blood Culture - Final Assessment And Plan - Current Problems (Diagnosis) (1) Recurrent UTI Plan: Cultures: - 10/06 UC: E. 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 Ibarra, N
[2022-10-10] MEDS: MORPHINE 2 MG/ML SYR IV PRN ×3 (09:28→22:04)
[2022-10-10] MEDS: CEFTRIAXONE 1,000 MG in NA CHLORIDE 0.9% 50 ML IVPB SCH (09:29)
[2022-10-10] MEDS: DIPHENHYDRAMINE 25 MG TAB/CAP PO PRN (22:05)
[2022-10-11] MEDS: Oxycodone HCl/Acetaminophen 1 TAB TAB PO PRN ×2 (05:28→11:19)
[2022-10-11] MEDS: OXYCODONE HCL 5 MG TAB PO PRN ×2 (05:28→11:20)
[2022-10-11] MEDS: CEFTRIAXONE 1,000 MG in NA CHLORIDE 0.9% 50 ML IVPB SCH (08:13)
[2022-10-11] MEDS: MORPHINE 2 MG/ML SYR IV PRN ×2 (08:13→14:18)
--- NOTE | 2022-10-11 08:20 | P.PN ---
Subjective Date of Service: 10/11/22 Chief Complaint: Severe Sepsis Subjective: Improving Patient sitting in bed with at the bedside. No major event upon examination Physical Examination - Vital Signs Temperature: 98 F Blood Pressure: 116/63 Pulse: 83 Respirations: 18 Pulse Ox (%): 100 - Physical Exam General: Alert, In no apparent distress, Oriented x3 Respiratory: Normal air movement Cardiovascular: No edema, Normal S1 S2 Gastrointestinal: Normal bowel sounds Musculoskeletal: Scoliosis, Other (Spinal bifida) Integumentary: No rashes, No breakdown Neurological: Normal speech, Normal tone, Sensation intact, Normal affect, Other (Spinal bifida) Urinary: Other (straight cath Q4H) - Studies active medications Diphenhydramine HCl (Diphenhydramine 25 Mg Tab/Cap) 25 mg PO BEDTIME PRN PRN Reason: INSOMNIA Last Admin: 10/10/22 22:05 Dose: 25 mg Ceftriaxone Sodium 1,000 mg/ (Sodium Chloride) 50 mls @ 100 mls/hr IVPB DAILY [facility] Stop: 10/19/22 13:01 Last Admin: 10/11/22 08:13 Dose: 50 mls Morphine Sulfate (Morphine 2 Mg/Ml Syr) 2 mg IV Q4H PRN PRN Reason: Pain scale 8-10 (Severe) Last Admin: 10/11/22 08:13 Dose: 2 mg Oxycodone HCl (Oxycodone Hcl 5 Mg Tab) 5 mg PO Q6HP PRN PRN Reason: Pain scale 5-7 (Moderate) Last Admin: 10/11/22 05:28 Dose: 5 mg Oxycodone/Acetaminophen (Oxycodone Hcl/Acetaminophen 1 Tab Tab) 1 tab PO Q6HP PRN PRN Reason: Pain scale 5-7 (Moderate) Last Admin: 10/11/22 05:28 Dose: 1 tab Sodium Chloride (Flush Normal Saline 10 Ml) 10 ml IV BID TAZ Last Admin: 10/11/22 08:13 Dose: 10 ml Microbiology Data (last 24 hrs): Microbiology 10/06/22 14:15 Clean Catch Urine [place] Count - Final >100,000 CFU/ML. 10/06/22 14:15 Clean Catch Urine - Final Escherichia Coli 10/06/22 15:11 Blood - Blood Aerobic Blood Culture - Preliminary No growth in 24 hours. 10/06/22 15:11 Blood - Blood Anaerobic Blood Culture - Preliminary No growth in 24 hours. 10/06/22 13:41 Blood - Blood Aerobic Blood Culture - Preliminary No growth in 24 hours. 10/06/22 13:41 Blood - Blood Anaerobic Blood Culture - Final Assessment And Plan - Current Problems (Diagnosis) (1) Recurrent UTI Plan: Cultures: - 10/06 UC: E. 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 Ibarra, N
[2022-10-11 14:20] VITALS: BP 122/73; TEMP 98.4
[2022-10-11] MEDS ORDERED: HEPARIN 500 UNIT/5 ML SYR IV PRN (15:34)
== END 2022-10-11 17:00 | disposition home health service (06) | DRG 698 ==
LOC: ER 12:13 → ERHOLD 17:21 → 2ND 19:04
PROVIDERS: ADMIT Internal Medicine; ATTEND Emergency Medicine
DX: T83.518A Infection and inflammatory reaction due to other urinary catheter, initial encounter (principal); A41.51 Sepsis due to Escherichia coli [E. coli]; R65.20 Severe sepsis without septic shock; N10 Acute pyelonephritis; M86.652 Other chronic osteomyelitis, left thigh; Z16.23 Resistance to quinolones and fluoroquinolones; I10 Essential (primary) hypertension; K21.9 Gastro-esophageal reflux disease without esophagitis; M41.9 Scoliosis, unspecified; Q05.9 Spina bifida, unspecified; N31.9 Neuromuscular dysfunction of bladder, unspecified; G89.4 Chronic pain syndrome; Z88.1 Allergy status to other antibiotic agents; Z88.5 Allergy status to narcotic agent; Z86.14 Personal history of Methicillin resistant Staphylococcus aureus infection; Z89.411 Acquired absence of right great toe; Z91.040 Latex allergy status; Z91.048 Other nonmedicinal substance allergy status; Z87.891 Personal history of nicotine dependence; Z20.822 Contact with and (suspected) exposure to COVID-19
CPT/HCPCS: 0240U; 36415; 71045; 74177; 80048; 80053; 81003; 81015; 81025; 82947; 83605; 83735; 85025; 85610; 85730; 87040; 87077; 87086; 87088; 87186; 93005; 99283; J1642; J2185; J2270; J2405; J3370; J7030; J7050; Q9967

== ENCOUNTER 2022-12-30 10:25 | Inpatient (IN) | payer OTHER ==
--- OUTSIDE RECORDS SUMMARY | 2022-12-30 10:42 | XMS REPORT | Continuity of Care Document ---
:1990 Author Organization [facility] t Address [address] [place]. 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 breathing breathing 00:00: t & Plan: o [...] indicated Restrictiv Restrictiv Disease [facility]01 [facility] disease disease 00:00: t & Plan: of due to due to 00 PFt poor Medicin kyphoscoli kyphoscoli quality, e osis osis patient was very anxious during testing, sig restricti on Alveolar Alveolar Disease Active [facility] hypoventil hypoventil 12-01 [facility] ation ation 00:00: t & Plan: of 00 High risk Medicin patient e Will check on sleep study 17 weeks 17 weeks Disease Active [facility] gestation gestation 12-01 [facility] of of 00:00: t & Plan: of 00 High risk M edicin patient, e will follow closely Sleep-diso Sleep-diso Disease Active Last Tanna see melina 12-01 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 2-18 ity of 00:00: [place] 00 Medical Branch Hemochroma Hemochroma Disease Active 2019- U lucina tosis tosis 1-11 ity of carrier carrier 00:00: [place] 00 Medical Branch Pituitary Pituitary Disease Active 2017-08 Uni vers tumor tumor 2-07 ity of 00:00: [place] 00 Medical Branch Elevated Elevated Disease Active 2017-08 Unive rs alkaline alkaline 1-02 ity of phosphatas phosphatas [place] e level e level Medical Branch Hyperprola Hyperprola Disease Active 2017-08 U lucina ctinemia ctinemia - ity of 00:00: [place] 00 Medical Branch Persistent Persistent Disease Active 2017-08 U lucina headaches headaches 1-02 ity of 00:00: [place] 00 Medical Branch Iron Iron Disease Active 2017-08 Univers deficiency deficiency 1-02 it y of anemia, anemia, 00:00: [place] unspecifie unspecifie 00 Me dical d iron d iron Branch deficiency deficiency anemia anemia type type Cholelithi Cholelithi Disease Active 2017-08 U lucina asis asis 0-29 ity of 00:00: [place] 00 Medical Branch S/P DEPUTY 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 S/P DEPUTY 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 Disease Active 2017-08 Univers shunt shunt 0-24 ity of 00:00: [place] 00 Medical Branch Recurrent Recurrent Disease Active 2017-08 Uni vers UTI UTI 0-24 ity of 00:00: [place] 00 Medical Branch Irregular Irregular Disease Active 2017-08 Uni vers menses menses 0-24 ity of 00:00: [place] 00 Medical Branch Anemia, Anemia, Disease Active 2017-08 Univers unspecifie unspecifie 0-24 it y of d type d type 00:00: [place] 00 Medical Branch Poor Poor Disease Active 2017-08 Univers nutrition nutrition 0-24 ity of 00:00: [place] 00 Medical Branch 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 spina bifida s/p augmentat ion cystoplas ty and catheteri zable channel by Dr. Spicer at [facility] as a ch Scoliosis Scoliosis Disease Active 2017-08 Uni vers 0-24 ity of 00:00: Medical Branch Rh Rh Disease Active Overview: Univer s negative negative 6-18 Formattin ity of state in state in 00:00: g of this [place] as antepartum antepartum 00 note Me dical period period might be Branch different from the original. Rhogam at 28 weeks Rubella Rubella Disease Active Overview: Univ ers non-immune non-immune 6-18 Formattin ity of status, status, 00:00: g [...] Medical s Branch VANCOMYC DRUG Active ITCHING 2018- Univers IN INGREDI 5-25 ity of 00:00: Medical Branch Vancomyc Propensi Active Rash Univer s in ty to 5-25 ity of adverse 00:00: [place] reaction Medical s Branch SULFA Drug Active Rash Univers (SULFONA Class 4-13 ity of MIDE 00:00: [place] ANTIBIOT 00 Medical ICS) Branch Sulfa Propensi Active Rash Univers (Sulfona ty to 4-13 ity of mide adverse 00:00: [place] Antibiot reaction 00 Medica l ics) s Branch Sulfa Propensi Active Rash [facility] Antibiot ty to 4-13 [place] ics adverse 00:00: of reaction 00 Medicin s to e drug LATEX DRUG Active High Rash Univers INGREDI [...] ity of (Bulk) adverse 00:00: [place] reaction Medical s Branch Sulfamet Propensi Active Rash [facility] hoxazole ty to 02-25 [place] W/Trimet adverse 00:00: of hoprim reaction Medicin s to e drug Latex Propensi Active Rash [facility] ty to 02-25 [place] adverse 00:00: of reaction 00 Medicin s to e substanc e Social History Social Habit Start Date Stop Date Quantity Comments Source History [facility] of Alcohol Std Medicine Drinks History [facility] of Alcohol Binge Medicine Exposure to 2022-03-15 2022-03-25 Not sure [facility] SARS-CoV-2 00:00:00 18:16:00 [facility] (event) Branch Tobacco use and 2022-03-25 2022-03-25 Smokeless tobacco Un iversity of exposure 00:00:00 00:00:00 non-user [facility] [place] [facility] Alcohol intake 2022-03-25 2022-03-25 Current University of 00:00:00 00:00:00 non-drinker of [facility] alcohol (finding) Branch History [facility] 2018-11-25 2018-11-25 1 [facility] ge of Alcohol Frequency 00:00:00 00:00:00 Medicin e Sex Ass[birth year] At [birth year] AMGGIE Teran 00:00:00 00:00:00 [facility] Smoking Status Start Date Stop Date Source Never smoked tobacco [facility] Medications Ordered Filled Start Stop Current Ordering [...] 00 :00 dose, On Medi jose ORCINE)(PF) [facility] ) 100 03/28/22 at unit/mL 1330, [...] [place] 05 times Medical daily. Branch atenoloL Yes 100mg Take 100 Univ [...] [place] 05 times Medical daily. Branch diphenhydrA Yes 50mg Take 50 mg Univers [...] times Medical daily. Branch cefUROXime 2021- No [id number] 500mg Take 1 Univers 500 mg 8-23 04-05 tablet by ity of tablet 00:00: 04:59 mouth in [place] 00 :00 the Medical morning Branch and 1 tablet in the evening. Do all this for 7 days. magnesium 2021- No 2g 2 g, IV Univ ers sulfate in 03-26 Piggyback, it y of water 2 17:45: 20:17 Administer [place] as gram/50 mL 00 :00 over 60 Medica l (4 %) Minutes, Branch infusion 2 ONCE NOW, g 1 dose, On [place] 03/26/22 at 1245, Routine enoxaparin Yes 40mg 40 mg, Unive rs (LOVENOX) 03-26 Subcutaneo ity of injection 14:00: [place], DAILY, [place] 40 mg 00 First dose [facility] 03/26/22 at 0900, Until Discontinu ed, Routine atenoloL Yes 100mg 100 mg, Unive rs (TENORMIN) 03-26 Oral, ity of tablet 100 14:00: DAILY, [place] mg 00 First dose Medical [facility] 03/26/22 at 0900, Until Discontinu ed, Routine KCL 2021- No 40meq 40 mEq, Univers (KLOR-CON 03-26 Oral, ity of M20) tablet 13:30: 13:32 ONCE, 1 [place] 40 mEq 00 :00 dose, On [facility] 03/26/22 at 0830, Routine dicyclomine Yes 10mg 10 mg, Univ ers (BENTYL) 03-26 Oral, QID, ity o f capsule 10 13:00: First dose [place] mg 00 on [facility] 03/26/22 at Branch 0800, Until Discontinu ed, Routine potassium 2021- No 10meq 10 mEq, IV Univers chloride in 03-26 Piggyback, i ty of water 10 13:00: 15:42 Q1H, 2 [place] mEq/100 mL 00 :00 doses, Medical RTU 10 mEq First dose Bra nch on [place] 03/26/22 at 0800, Last dose on [place] 03/26/22 at 0900, Administer over 60 Minutes, 100 mL meropenem 2021- No 1000mg 1,000 mg, Univers (MERREM) 03-26 IV ity of 1,000 mg in 09:00: 08:59 Piggyback, [place] NaCl 0.9% 00 :00 Q8H ABX, Medica l (NS) 50 mL 21 doses, Bran ch MINI-BAG First dose on [place] 03/26/22 at 0400, Last dose on [facility] 04/01/22 at 2000, Administer over 30 Minutes, 50 mL
Rest ricted use approved by: After Hours (for ADC, CLC, LCC ONLY)
R pj for Anti-Infec tive: Documented Infection< br>Documen carlos Infection Site: Urine
D uration of Therapy: 7 days KCL 2021-2021- No 40meq 40 mEq, Univers (KLOR-CON 03-26 Oral, ity of M20) tablet 06:00: 09:37 ONCE, 1 [place] 40 mEq 00 :00 dose, On [facility] 03/26/22 at 0100, Routine ondansetron Yes 4mg 4 mg, Slow Univers (ZOFRAN 03-26 IV Push, ity of (PF)) 02:43: Q6HPRNDrayden, [place] injection 4 03 Starting Medi jose mg on Sat Branch 03/25/22 at 2143, Until Discontinu ed, Routine, Nausea and Vomiting (N/V) acetaminoph Yes 650mg 650 mg, Un vamsi en 03-26 Oral, ity of (TYLENOL) 02:42: Q6RN [place] tablet 650 55 Starting Medic al mg on Sat Branch 03/25/22 at 2142, Until Discontinu ed, Routine, Pain (scale 1-3) oxyCODONE-a 0 Yes 1{tbl} 1 tablet, Univers cetaminophe 03-26 Oral, ity of n 02:41: Q6RWilliamson, [place] (PERCOCET) 13 Starting Medic al 5-325 mg on [facility] Branch per tablet 03/25/22 at 1 tablet 2140, Until Discontinu ed, Pain (scale 7-10) diphenhydrA Yes 50mg 50 mg, Univ ers MINE 03-26 Oral, ity of (BENADRYL) 02:40: QPRN [facility] Tylera s tablet 50 20 Starting Medica l mg on Sat Branch 03/25/22 at 2140, Until Discontinu ed, Routine, Congestion /Allergies , Sleep meropenem 2021- No 1000mg 1,000 mg, Univers (MERREM) 03-26 IV ity of 1,000 mg in 01:45: 01:13 [place], [place] NaCl 0.9% 00 :00 ONCE, 1 Medical (NS) 50 mL dose, On Bran h MINI-BAG [facility] 03/25/22 at 2044, Administer over 30 Minutes, 50 mL
Rest ricted use approved by: EMERGENCY DEPARTMENT PRESCRIBER
Reason for Anti-Infec tive: Documented Infection< br>Documen carlos Infection Site: Urine
D uration of Therapy: Other (see Comments) metoprolol 2021- No 5mg 5 mg, Slow Univers (LOPRESSOR) 03-26 IV Push, ity of injection 5 00:45: 00:42 ONCE, 1 [place] mg 00 :00 dose, On Medical Sat Branch 03/25/22 at 1945, [place] NaCl 0.9% 2021- No 1000mL at 999 Uni vers (NS) bolus 03-26 mL/hr, ity of infusion 00:45: 00:05 1,000 mL, [place] as 1,000 mL 00 :00 IV Medical Infusion, Branch ONCE, 1 dose, On 03/25/22 at 1945, [place] ondansetron 2021- No 4mg 4 mg, Slow Univers (ZOFRAN 03-25 IV Push, ity of (PF)) 23:45: 23:59 ONCE, 1 [place] injection 4 00 :00 dose, On Medi jose mg Sat Branch 03/25/22 at 1845, [place] morpHINE (2 2021- No 2mg 2 mg, Slow Univers mg/mL) 03-25 IV Push, ity of injection 2 23:45: 23:59 ONCE, 1 [place] mg 00 :00 dose, On Medical Sat Branch 03/25/22 at 1845, STAT dicyclomine 2019-0 Yes 10mg Take 10 mg [place] (BENTYL) 10 24 by mouth. Col lege MG capsule 19:29: of 04 Medicin e ondansetron 2020-0 Yes [facility] (ZOFRAN) 4 - College MG tablet 00:00: of 00 Medicin e promethazin 2020-0 Yes [place] e 08-07 College (PHENERGAN) 00:00: of 25 MG 00 Medicin tablet e ondansetron 2020-0 Yes Univer s 4 mg tablet 08-07 ity of 00:00: [place] [facility] ondansetron 2020-0 Yes Univer s 4 mg tablet 08-07 ity of 00:00: [place] [facility] ondansetron 2020-0 Yes Univer s 4 mg tablet 08-07 ity of 00:00: [place] 00 Medical Branch diphenhydrA 2018-0 Yes 50mg Take 50 mg [place] MINE -24 by mouth [place] (BENADRYL) 16:23: daily. of 25 MG 12 Medicin capsule e diphenhydrA Yes 50mg Take 50 mg [facility] MINE -24 by mouth [place] (BENADRYL) 16:23: daily. of 25 MG 12 Medicin capsule e labetalol Yes [id number] 200mg Take 1 U nivers 200 mg 9-16 tablet by ity of tablet 00:00: mouth 2 [place] (two) Medical times Branch daily. labetalol Yes [id number] 200mg Take 1 U nivers 200 mg 9-16 tablet by ity of tablet 00:00: mouth 2 [place] (two) Medical times Branch daily. labetalol Yes [id number] 200mg Take 1 U nivers 200 mg 9-16 tablet by ity of tablet 00:00: mouth [place] (two) Medical times Branch daily. nystatin-tr Yes [id number] [facility]ge (MYCOLOG) 00:00: clean dry of ointment 00 groin BID Medici n x 7 days e nystatin-tr Yes [id number] [facility] Col [facility]ge (MYCOLOG) 00:00: clean dry of ointment 00 groin BID Medici n x 7 days e oxybutynin 2019- No [id number] 10mg Take 1 Tab [facility] (DITROPAN-X 12-12 by mouth Col lege L) 10 MG CR 00:00: 00:00 daily. of tablet 00 :00 Medicin e nitrofurant 2019- No 1{capsu Take 1 Cap [facility] oin, 11-18 le} by mouth [place] macrocrysta 00:00: 00:00 daily. of l-monohydra 00 :00 Medicin te, e (MACROBID) 100 MG capsule Prenat-Fe 2019- No 1{tbl} Take 1 Tab [facility] Poly-Methfo 11-18 by mouth Col lege l-FA-DHA 00:00: 00:00 daily. of (VITAFOL 00 :00 Medicin ULTRA) e 29-0.6-0.4- 200 MG CAPS DICLEGIS 2019- No 3{tbl} Take 3 [facility] or 10-10 MG -04-29 Tabs by [place] TBEC 00:00: 00:00 mouth of 00 :00 daily. 2 Medicin tablets in e am and 1 tab in PM Cholecalcif 2018- Yes 1{tbl} Take 1 Tab [place] dorene 3-12 by mouth College (VITAMIN 00:00: daily. of D-3) 1000 00 Medicin units CAPS e Cholecalcif 2019-0 Yes 1{tbl} Take 1 Tab [facility] dorene 3-12 by mouth College (VITAMIN 00:00: daily. of D-3) 1000 00 Medicin units CAPS e omeprazole 2018-0 Yes 20mg Take 20 mg [facility] (PRILOSEC) 3-11 by mouth Colle ge 20 MG 00:00: daily. of capsule 00 Medicin e aspirin EC Yes 81mg Take 81 mg [facility] 81 MG 3-11 by mouth College tablet 00:00: daily. of 00 Medicin e omeprazole 2018-0 Yes 20mg Take 20 mg [facility] (PRILOSEC) 3-11 by mouth Colle ge 20 MG 00:00: daily. of capsule 00 Medicin e aspirin EC 0 Yes 81mg Take 81 mg [facility] [...] Medicin 10-325 MG e per tablet labetalol 2018-0 Yes 200mg Take 200 [place] tsering (NORMODYNE) 2-15 mg by College 200 MG 00:00: mouth of tablet 00 every 12 Medicin hours. e labetalol 2019-0 Yes 200mg Take 200 [place] tsering (NORMODYNE) 2-15 mg by College 200 MG 00:00: mouth of tablet 00 every 12 Medicin hours. e atenolol 2016- Yes DAILY [place] (TENORMIN) 2-08 College 50 MG 00:00: of tablet 00 Medicin e Immunizations Ordered Filled Immunization Date Status Comments Sourc e Immunization Name Name [facility] 2019-02-08 Completed [facility] 00:00:00 [facility] 2019-02-08 Completed [facility] 00:00:00 [facility] 2019-02-08 Completed University of 00:00:00 [facility] [place] [facility] TDAP 2019-01-30 Completed University of 00:00:00 [facility] Branch TDAP 2019-01-30 Completed University of 00:00:00 [facility] Branch TDAP 2019-01-30 Completed University of 00:00:00 [facility] Branch HPV9 2017-02-15 Completed University of 00:00:00 [place] [facility] HPV9 2017-02-15 Completed University of 00:00:00 [facility] Branch HPV9 2017-02-15 Completed University of 00:00:00 [facility] [place] [facility] Vital Signs Vital Name Observation Time Observation Value Comments Source Systolic blood 2022-03-28 16:21:00 107 mm[Hg] Univer sity of pressure [facility] [place] [facility] Diastolic blood 2022-03-28 16:21:00 55 mm[Hg] Unive rsity of pressure [facility] [place] [facility] Heart rate 2022-03-28 16:21:00 63 /min [facility] Body temperature 2022-03-28 16:21:00 36.22 [facility] Respiratory rate 2022-03-28 16:21:00 18 /min [facility] Oxygen saturation in 2022-03-28 16:21:00 100 /min [facility] Arterial blood by [facility] Pulse oximetry [place] Body weight 2022-03-28 08:50:00 32.977 kg [facility] BMI 2022-03-28 08:50:00 22.18 kg/m2 [facility] Systolic blood 2019-08-29 19:27:00 135 mm[Hg] [facility] of pressure Medicine Diastolic blood 2019-08-29 19:27:00 95 mm[Hg] [facility] Medicine Heart rate 2019-08-29 19:27:00 93 /min [facility] Body temperature 2019-08-29 19:27:00 36.67 Pati [facility] Body weight 2019-08-29 19:27:00 31.752 kg [facility] BMI 2019-08-29 19:27:00 21.36 kg/m2 [facility] Systolic blood 2019-08-29 19:27:00 135 mm[Hg] [facility] pressure Medicine Diastolic blood 2019-08-29 19:27:00 95 mm[Hg] [facility] Medicine Heart rate 2019-08-29 19:27:00 93 /min [facility] ollege of Medicine Body temperature 2019-08-29 19:27:00 36.67 Pati [facility] Body weight 2019-08-29 19:27:00 31.752 kg [facility] ollege of [facility] BMI 2019-08-29 19:27:00 21.36 kg/m2 [facility] ol[facility] of Medicine Systolic blood 2019-04-29 16:21:00 118 mm[Hg] [facility] pressure Medicine Diastolic blood 2019-04-29 16:21:00 79 mm[Hg] [facility] Medicine Heart rate 2019-04-29 16:21:00 95 /min [facility] ol[facility] of Medicine Body height 2019-04-29 16:21:00 121.9 [facility] weight 2019-04-29 16:21:00 39.463 [facility] BMI 2019-04-29 16:21:00 26.55 kg/m2 [facility] Systolic blood 2019-04-29 16:21:00 118 mm[Hg] [facility] pressure Medicine Diastolic blood 2019-04-29 16:21:00 79 mm[Hg] [facility] Medicine Heart rate 2019-04-29 16:21:00 95 /min [facility] of Medicine Body height 2019-04-29 16:21:00 121.9 cm [facility] of Medicine Body weight 2019-04-29 16:21:00 39.463 kg [facility] ol[facility] of Medicine BMI 2019-04-29 16:21:00 26.55 kg/m2 [facility] Procedures Procedure Date / Time Performing Clinician Source Performed HOME HEALTH - OTHER 2022-09-21 06:01:00 Doctor Unassigned, [facility] [place] Medical [facility] PHYSICIAN ORDERS 2022-06-22 06:01:00 Doctor Unassigned, [facility] Name Medical Branch MAGNESIUM 2022-03-28 08:55:00 Geovani Negrito [facility] BASIC METABOLIC PANEL 2022-03-28 08:55:00 Geovani Negrito [facility] (NA, K, CL, CO2, GLUCOSE, Medica l Branch BUN, CREATININE, CA) BASIC METABOLIC PANEL 2022-03-27 09:09:00 Abdulaziz Cabrera [facility] (NA, K, CL, CO2, GLUCOSE, Medica l Branch BUN, CREATININE, CA) CBC WITH DIFF 2022-03-27 09:09:00 Rick [facility] POTASSIUM SERUM 2022-03-26 19:21:[address] [facility] PHOSPHORUS 2022-03-26 10:11:[address] [facility] MAGNESIUM 2022-03-26 10:11:[address] [facility] COMP. METABOLIC PANEL 2022-03-26 10:[id number] CBC WITH DIFF 2022-03-26 10:11[facility]00 [facility] 2022-03-26 00:46:00 Yeni Lockett [facility] COMP. METABOLIC PANEL 2022-03-25 23:54:00 Yeni Lockett [facility] ([id number]) [facility] CBC WITH DIFF 2022-03-25 23:54:00 Yeni Lockett [facility] URINALYSIS 2022-03-25 23:54:00 Yeni Lockett [facility] URINE CULTURE 2022-03-25 23:54:00 Yeni Lockett [facility] COVID-19 (ID NOW RAPID 2022-03-25 23:54:00 LockettYeni harley [facility] TESTING) Medical Branch LAB ONLY COVID 2022-03-25 23:54:00 Yeni Lockett [facility] of Care Planned Activity Planned Date Details Comments Source Future Scheduled TETANUS SHOT [facility] eg Test (ADULT) [code = of Medicine TETANUS SHOT (ADULT)] Future Scheduled HIV SCREENING [code [facility] or [facility] Test = HIV SCREENING] of Medicine Future Scheduled CERVICAL CANCER [facility] C ollege Test SCREENING 3 YEAR of Medicine FOLLOW UP [code = CERVICAL CANCER SCREENING 3 YEAR FOLLOW UP] Future Scheduled FLU VACCINE > 6 [facility] C ollege Test MONTHS [code = FLU of Medici ne VACCINE > 6 MONTHS] Future Scheduled URINALYSIS AUTO Ordered: 08/29/2019 [facility] [employer] [employer] Test W/SCOPE [code = of Medicine 96181-6] Future Scheduled TETANUS SHOT [facility] Gopal ege Test (ADULT) [code = of Medicine TETANUS SHOT (ADULT)] Future Scheduled BMI FOLLOW UP PLAN [employer] Test [code = BMI FOLLOW of Medici ne UP PLAN] Future Scheduled HIV SCREENING [code [facility] [facility] Test = HIV SCREENING] of Medicine Future Scheduled CERVICAL CANCER [facility] C ollege Test SCREENING 3 YEAR of Medicine FOLLOW UP [code = CERVICAL CANCER SCREENING 3 YEAR FOLLOW UP] Future Scheduled FLU VACCINE > 6 [facility] C ollege Test MONTHS [code = FLU of Medici ne VACCINE > 6 MONTHS] Future Scheduled VIDEO URODYNAMICS 1 Occurrences [employer] Test [code = 12086] starting 08/29/2019 of Med icine until 08/29/2020 Future Scheduled US RENAL BILATERAL 1 Occurrences [employer] [facility] [employer] Test [code = 72046] starting 08/29/2019 of Med icine until 08/29/2020 Future Scheduled CYSTOSCOPY [code = 1 Occurrences [employer] [facility] [employer] Test [id number]] starting 08/29/2019 of Medic ine until 08/29/2020 Future Scheduled CULTURE, 2 Occurrences [facility] Col lege Test URINE/SENSITIVITY starting 08/29/2019 of Medicine ON ALL [code = until 08/28/2020 94885-0] Encounters Start End Encounter Admission Attending Care Care Encounter Source Date/Time Date/Time Type Type Clinicians Facility Department ID 2022-09-21 2022-09-21 Orders Doctor HURST [id number] Univers 00:00:00 00:00:00 Only UnassignedJESSICA [id number] ity of [place] [facility] [id number] [place] as [phone] [facility] 009 Branch 2022-06-22 2022-06-22 Orders Doctor NATALI [id number] Univers 00:00:00 00:00:00 Only UnassignedJESSICA [id number] ity of [place] [facility] [id number] [facility] [phone] [facility] 009 Branch 2022-03-25 2022-03-28 Outpatient X [facility] [id number] Univers 18:14:00 12:33:00 SONJA monson [facility] [place] [facility] 2022-03-25 2022-03-28 Emergency Yeni Lockett [facility] 1.2.840. [id number] Univers 18:14:00 12:33:00 Sonja Hoover TENZIN [id number] ity [facility] [id number] [facility] [phone] [place] [id number] [place] 2022-02-15 2022-02-15 Outpatient [facility] 983 [place] 05:40:00 05:40:00 OZ [facility] 2021-01-10 2021-01-10 Outpatient [facility] [id number] Univers 00:00[facility] 2020-[facility]-17 2020-11-17 Orders Doctor HURST [id number] 00:00:00 00:00:00 Only Unassigned, JESSICA [id number] [place] [facility] [id number] [id number] 2020-11-08 2020-11-08 Outpatient [facility] [id number] Univers 00:00:00 00:00:00 ity [facility] [place] [facility] 2020-11-08 2020-11-08 Orders Doctor HURST [id number] 00:00:00 00:00:00 Only Unassigned, JESSICA [id number] [place] [facility] [id number] [id number] 2020-10-11 2020-10-11 Telephone Cl [facility] [id number] 00:00:00 00:00:00 [facility] [id number] [place] [id number] Professio [phone] nal [address] 2020-10-10 2020-10-10 Orders Doctor NATALI [id number] 00:00:00 00:00:00 Only Unassigned, JESSICA [id number] [place] [id number] 009 2020-09-17 2020-09-17 [facility] [id number] 16:26:39 16:41:39 Visit Lab Main [place] 350.1.13.10 [place] 4.2.7.2.686 Professio [phone] [address] 2020-09-17 2020-09-17 [facility] [id number] Univers 16:30:00 16:30:00 [facility] 2020-09-17 2020-09-17 Orders Doctor HURST 1.2.840.114 [id number] 00:00:00 00:00:00 Only Unassigned, JESSICA 350.1.13.10 [place] [address].2.7.2.686 [phone] 009 2020-07-05 2020-07-05 Outpatient [facility] [id number] Univers 14:30:00 14:30:00 [facility] 2020-07-05 2020-07-05 [facility] 1.2.840.114 [id number] 14:05:50 14:20:50 Visit Lab Main [place] 350.1.13.10 [place] 4.2.7.2.686 Professio [phone] [address] 2020-07-05 2020-07-05 Orders Doctor NATALI Reina.2.840.114 [id number] 00:00:00 00:00:00 Only Unassigned, JESSICA 350.1.13.10 [place] [address].2.7.2.686 [phone] 009 2020-05-17 2020-05-17 Orders Doctor NATALI Tinoco2.840.114 [id number] 00:00:00 00:00:00 Only Unassigned, JESSICA 350.1.13.10 [place] [facility] 4.2.7.2.686 [id number] 009 2020-03-18 2020-03-18 Orders Doctor NATALI 1.2.840.114 [id number] 00:00:00 00:00:00 Only Unassigned, JESSICA 350.1.13.10 [place] [facility] 4.2.7.2.686 [id number] 009 2020-03-09 2020-03-09 Orders Doctor NATALI 1.2.840.114 [id number] 00:00:00 00:00:00 Only Unassigned, JESSICA 350.1.13.10 [place] [facility] 4.2.7.2.686 [id number] 009 2020-01-05 2020-01-05 Orders Doctor NATALI 1.2.840.114 [id number] 00:00:00 00:00:00 Only Unassigned, JESSICA 350.1.13.10 [place] [facility] 4.2.7.2.686 [id number] 009 2019-12-18 2019-12-18 Telephone [facility] 1.2.840.114 [id number] 00:00:00 00:00:00 [place] 350.1.13.10 [place] 4.2.7.2.686 Professio [phone] [address] 2019-12-16 2019-12-16 Telephone [facility] 1.2.840.114 [id number] 00:00:00 00:00:00 [place] 350.1.13.10 [place] 4.2.7.2.686 Professio [phone] [address] 2019-12-09 2019-12-09 Orders Doctor NATALI 1.2.840.114 [id number] 00:00:00 00:00:00 Only Unassigned, JESSICA 350.1.13.10 [place] [facility] 4.2.7.2.686 [id number] 009 2019-11-24 2019-11-24 Telephone [facility] 1.2.840.114 [id number] 00:00:00 00:00:00 [place] 350.1.13.10 [place] 4.2.7.2.686 Professio [phone] 2019-11-24 2019-11-24 Orders Doctor NATALI 1.2.840.114 [id number] 00:00:00 00:00:00 Only Unassigned, JESSICA 350.1.13.10 [place] [facility] 4.2.7.2.686 [id number] 009 2019-11-07 2019-11-07 Orders Doctor NATALI 1.2.840.114 [id number] 00:00:00 00:00:00 Only Unassigned, JESSICA 350.1.13.10 [place] [facility] 4.2.7.2.686 [id number] 009 2019-11-05 2019-11-05 [facility] 1.2.840.114 [id number] 00:00:00 00:00:00 [place] 350.1.13.10 [place] 4.2.7.2.[address] Professio [phone] 2019-10-30 2019-10-30 Telephone [facility] 1.2.840.114 [id number] 00:00:00 00:00:00 [facility]iful A [facility] 350.1.13.10 [place] 4.2.7.2.686 Professio [phone] [address] 2019-10-30 2019-10-30 Orders Doctor HURST 1.2.840.114 [id number] 00:00:00 00:00:00 Only Unassigned, JESSICA 350.1.13.10 [place] [facility] 4.2.7.2.686 [id number] 009 2019-10-22 2019-10-22 [facility] 1.2.840.114 [id number] 00:00:00 00:00:00 [place] A [facility] 350.1.13.10 [place] 4.2.7.2.686 Professio [phone] [address] 2019-10-20 2019-10-20 [facility]phone [facility] 1.2.840.114 [id number] 00:00:00 00:00:00 [place] A [facility] 350.1.13.10 [place] 4.2.7.2.686 Professio [phone] nal [facility] 2019-10-15 2019-10-15 Telephone Cl [facility] 1.2.840.114 [id number] 00:00:00 00:00:00 [facility] A [facility] 350.1.13.10 [place] 4.2.7.2.686 Professio [phone] [place] [address] [address] 2019-10-08 2019-10-08 [facility] 1.2.840.114 [id number] 00:00:00 00:00:00 Wondiful A [facility] 350.1.13.10 [place] 4.2.7.2.686 Professio [phone] [place] [address] [address] 2019-08-29 2019-08-29 Office [facility]PER [facility] 1.2.840.114 [id number] 13:02:13 13:12:13 Visit Christopher AMBULATOR 350.1.13.21 P Y 0.2.7.2.686 [phone] [facility] 2019-08-29 2019-08-29 Office [facility] 1.2.840.114 [id number] [facility] 13:02:13 13:12:13 Visit Christopher AMBULATOR 350.1.13.21 [place] P Y 0.2.7.2.686 [id number] [facility] 300 [address] 2019-08-15 2019-08-15 Outpatient Patrick CL, [facility] [id number] Univers 15:00:00 15:09:49 WONDIFUL ity o f [facility] 2019-05-15 2019-05-15 Outpatient Patrick CL, [facility] [id number] Univers 15:00:00 15:59:45 WONDIFUL ity o f [facility] 2019-04-29 2019-04-29 Office Jeff SHIRLEY [id number] [id number] 10:53:12 12:18:36 Visit Kt, AMBULATOR 350.1.13.21 Rasheed Kermit Y 0.2.7.2.686 [place] [phone] 800 2019-04-29 2019-04-29 Office Jeff SHIRLEY 1.2.625.126 [id number] [facility] 10:53:12 12:18:36 Visit Kt, AMBULATOR 350.1.13.21 [place] Rasheed Carmen Y 0.2.7.2.686 of [place] [phone] [facility] 800 e 2019-04-21 2019-04-21 Outpatient R CL, [facility] [id number] Univers 16:30:00 16:55:27 WONDIFUL ity o f [facility] Results Test Description Test Time Test Comments Results Result Comments Source MAGNESIUM 2022-03-28 11:10:16 Test Item Value Reference Range Interpretation Comme nts MAGNESIUM (test code = 5998354506) 1.8 mg/dL 1.7-2.4 Lab Interpretation (test code = 31485-4) Normal [facility] (NA, K, CL, CO2, GLUCOSE, BUN, CREATININE, CA)2022-03-28 11:10:15 Test Item Value Reference Range Interpretation Comments NA (test code = 136 mmol/L 135-145 9999271622) K (test code = 4.1 mmol/L 3.5-5 4701811187) CL (test code = 103 mmol/L 98-108 0978038810) CO2 TOTAL (test code = 30 mmol/L 23-31 5115052150) AGAP (test code = 2-16 1659724837) BUN (test code = 4 mg/dL 7-23 L 5191814942) GLUCOSE (test code = 100 mg/dL 70-110 2540744423) CREATININE (test code = 0.40 mg/dL 0.5-1.04 L 3760601295) CALCIUM (test code = 8.7 mg/dL 8.6-10.6 4291092100) eGFR (test code = mL/min/1.73m2 7803418724) GENARO (test code = GENARO) Association of [...] tests). Lab Interpretation Abnormal (test code = 60382-1) [facility] [id number] 19:44:05 Test Item Value Reference Range Interpretation Comments K (test code = 1230267111) 5.7 mmol/L 3.5-5 H Lab Interpretation (test code = Abnormal 24446-8) [id number] 00:46:00 Test Item Value Reference Range Interpretation Comments POCT PREG (test code = 1605) Negative On board controls acceptable with Present C Line (test code = 3574) POCT PREG LOT # (test code = 3575) [id number] POCT PREG TEST DATE (test 07/05/23 code = 3576) Lab Interpretation (test code = Normal 17988-0) [facility] (66139)2022-03-26 00:22:26 Test Item Value Reference Range Interpretation Comments NA (test code = 136 mmol/L 135-145 7988297360) K (test code = 3.0 mmol/L 3.5-5 L 4426279403) CL (test code = 100 mmol/L 98-108 8269813173) CO2 TOTAL (test code = 26 mmol/L 23-31 7389838454) AGAP (test code = 2-16 4370850930) BUN (test code = 3 mg/dL 7-23 L 5677311048) GLUCOSE (test code = 100 mg/dL 70-110 3529779310) CREATININE (test code = 0.41 mg/dL 0.5-1.04 L 6131146954) TOTAL BILI (test code = 0.3 mg/dL 0.1-1.0 5293417152) CALCIUM (test code = 9.3 mg/dL 8.6-10.6 8797244181) T PROTEIN (test code = 7.3 g/dL 6.3-8.2 1667546402) ALBUMIN (test code = 4.4 g/dL 3.5-5 9183759269) ALK PHOS (test code = 143 U/L 34-122 H 5896103658) ALTv (test code = 15 U/L 5-35 1742-6) AST(SGOT) (test code = 23 U/L 13-40 9686178171) eGFR (test code = mL/min/1.73m2 6915389331) GENARO (test code = GENARO) Association of [...] tests). Lab Interpretation Abnormal (test code = 02243-3) [facility] WITH [id number] 00:09:04 Test Item Value Reference Range Interpretation Comments WBC (test code = See_Comment H [Automated 0990-2) message] The sy stem which generated this [...] RDW-SD (test code = 47.4 fL 39-49.9 25346-2) RDW-CV (test code = 14.1 % 12-15.5 788-0) PLT (test code = See_Comment H [Automated 777-3) message] The sy stem which generated this result transmitted reference range : 166 - 358 10*3/ ?L. The reference r tenisha was not used to interpret this result as normal/abnormal . MPV (test code = 8.9 fL 9.5-12.9 L 01953-3) NRBC/100 WBC (test See_Comment [Automat ed code = 5770780175) message] The system which generated this result transmitted reference range : 0.0 - 10.0 /100 WBCs. The refer ence range was not u sed to interpret th is result as normal/abnormal . NRBC x10^3 (test code See_Comment [Auto mated = 8619700444) message] The s ystem which generated this result transmitted reference range : 10*3/?L. The reference range was not used to interpret this result as normal/abnormal . GRAN MAT (NEUT) % 73.0 % (test code = 770-8) IMM GRAN % (test code 0.40 % = 9151006235) LYMPH % (test code = 20.4 % 736-9) MONO % (test code = 5.4 % 5905-5) EOS % (test code = 0.4 % 713-8) BASO % (test code = 0.4 % 706-2) GRAN MAT x10^3(ANC) 9.39 10*3/uL 1.88-7.09 H (test code = 8391572138) IMM GRAN x10^3 (test 0.05 10*3/uL 0-0.06 code = 0616884976) LYMPH x10^3 (test code 2.62 10*3/uL 1.32-3.29 = 731-0) MONO x10^3 (test code 0.70 10*3/uL 0.33-0.92 = 742-7) EOS x10^3 (test code = 0.05 10*3/uL 0.03-0.39 711-2) BASO x10^3 (test code 0.05 10*3/uL 0.01-0.07 = 704-7) Lab Interpretation Abnormal (test code = 95481-5) [facility]"
[2022-12-30 11:40] LABS: Specific Gravity < 1.005 (1.005-1.030); Urine Bacteria Loaded /HPF (<20); Urine Bilirubin NEGATIVE (Negative); Urine Blood Negative (Negative); Urine Clarity Clear (Clear); Urine Color Colorless (Yellow); Urine Glucose NEGATIVE (Negative); Urine Mucus Slight /HPF (None Seen); Urine Protein NEGATIVE (Negative); Urine RBC <5 /HPF (None Seen); Urine Urobilinogen Normal (Normal); Urine pH 6.5 (5.0-7.0)
[2022-12-30 13:14] LABS: Hematocrit 43.3 % (36.0-45.0); MCV 95.5 fL (80-100); MPV 7.9 fL (7.6-11.3); RBC Red Blood Cell Count 4.53 M/uL (3.86-4.86)
[2022-12-30 13:15] LABS: Absolute Lymphocytes (CBC) 1.5 K/uL (0.7-4.9)
[2022-12-30] MEDS ORDERED: MORPHINE 2 MG/ML SYR ONE (13:27)
[2022-12-30] MEDS ORDERED: ONDANSETRON 4 MG/2 ML VIAL ONE (13:27)
[2022-12-30 13:34] LABS: Albumin 3.9 g/dL (3.4-5.0); Bilirubin Total 0.3 mg/dL (0.2-1.0); Protein, Total 8.5 g/dL (6.4-8.2)
--- NOTE | 2022-12-30 13:39 | ER ---
Nurse's Notes [facility] Name: Shari Estrella Age: 32 yrs Sex: Female : 1990 Arrival Date: 12/30/2022 Time: 10:25 Bed 15 Private MD: Diagnosis: UTI/ Urinary tract infection, site not specified;Failed Outpatient Therapy Presentation: 12/30 10:50 Chief complaint: Patient states: Pt concerned she has a UTI, was diagnosed with one nj1 about 3 weeks ago at her PCP, started feeling worse 3-4 days ago. Fever, nausea, abdominal and "kidney" pain. Coronavirus screen: Vaccine status: Patient reports being unvaccinated. Ebola Screen: Patient denies travel to an Ebola-affected area in the 21 days before illness onset. Initial Sepsis Screen: Does the patient meet any 2 criteria? No. Patient's initial sepsis screen is negative. Does the patient have a suspected source of infection? No. Patient's initial sepsis screen is negative. Risk Assessment: Do you want to hurt yourself or someone else? Patient reports no desire to harm self or others. Onset of symptoms was November 30, 2022. 10:50 Method Of Arrival: EMS: [facility] nj1 10:50 Acuity: SAMAN 3 nj1 Triage Assessment: 16:01 General: Appears in no apparent distress. 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 - Social history:: Smoking status: Patient denies any tobacco usage or history of. Screenin:[address] [facility] ED Fall Risk Assessment (Adult) History of falling in the last 3 months, db including since admission No falls in past 3 months (0 pts) Confusion or Disorientation No (0 pts) Intoxicated or Sedated No (0 pts) Impaired Gait No (0 pts) Mobility Assist Device Used No (0 pt) Altered Elimination No (0 pt) Score/Fall Risk Level 0 - 2 = Low Risk Oriented to surroundings, Maintained a safe environment. Abuse screen: Denies threats or abuse. Denies injuries from another. Nutritional screening: No deficits noted. Tuberculosis screening: No symptoms or risk factors identified. Assessment: 12:15 Reassessment: Patient appears in no apparent distress at this time. Patient and/or db family updated on plan of care and expected duration. Pain level reassessed. Patient is alert, oriented x 3, equal unlabored respirations, skin warm/dry/pink. Reassessment: states has uti symptoms. General: Appears in no apparent distress. comfortable, Behavior is calm, cooperative. Pain: Complains of pain in back. Neuro: Level of Consciousness is awake, alert, obeys commands, Oriented to person, place, time, situation. Respiratory: Airway is patent Respiratory effort is even, unlabored, Respiratory pattern is regular, symmetrical. 12:57 Reassessment: lab is at patient bedside. db 13:30 Reassessment: Patient appears in no apparent distress at this time. Patient and/or db family updated on plan of care and expected duration. Pain level reassessed. Patient is alert, oriented x 3, equal unlabored respirations, skin warm/dry/pink. 14:30 Reassessment: Patient appears in no apparent distress at this time. Patient and/or db family updated on plan of care and expected duration. Pain level reassessed. Patient is alert, oriented x 3, equal unlabored respirations, skin warm/dry/pink. 15:55 Reassessment: Called to give report. Nurse did not answer for report. Will call back. db 15:56 Reassessment: Report given to CHATA Sims on 2nd floor. db 16:25 Reassessment: Patient appears in no apparent distress at this time. Patient and/or db family updated on plan of care and expected duration. Pain level reassessed. Patient is alert, oriented x 3, equal unlabored respirations, skin warm/dry/pink. Vital Signs: 10:50 BP 131 / 71; Pulse 73; Resp 18; Temp 99.8; Pulse Ox 100% ; Weight 34.02 kg; Pain 7/10; nj1 12:30 BP 113 / 78; Pulse 87; Resp 16; Pulse Ox 100% on R/A; db 13:45 BP 116 / 70; Pulse 58; Resp 16; Pulse Ox 100% on R/A; db 14:45 BP 143 / 77; Pulse 71; Resp 16; Pulse Ox 100% on R/A; db 15:30 BP 132 / 72; Pulse 65; Resp 16; Pulse Ox 96% on R/A; db 16:00 BP 140 / 93; Pulse 67; Resp 16; Pulse Ox 97% on R/A; db 10:50 Pain Scale: Adult nj1 ED Course: 10:26 Patient arrived in ED. am2 10:27 Moises Borrego PA is PHCP. jmm 10:27 Joel Ariza MD is Attending Physician. jmm 10:53 Triage completed. nj1 10:54 Arm band placed on right wrist. nj1 11:21 Patient has correct armband on for positive identification. Placed in gown. Bed in low mm9 position. Call light in reach. Side rails up X2. Warm blanket given. Pulse ox on. NIBP on. 11:21 Urinalysis w/ reflexes Sent. mm9 11:21 Urine collected:. mm9 12:25 Missed attempt(s): 24 gauge in right antecubital area. Bleeding controlled, band aid db applied, catheter tip intact. 12:42 Alycia Covington, RN is Primary Nurse. db 12:58 Inserted saline lock: 22 gauge in right hand, using aseptic technique. db 13:38 Roberto Jain MD is Hospitalizing Provider. jmm 14:45 Second set of blood cultures drawn by pa. db 16:25 No provider procedures requiring assistance completed. Patient admitted, IV remains in db place. Administered Medications: 13:35 Drug: morphine IVP or IV 2 mg Route: IVP; Infused Over: 4 mins; Site: right hand; db 16:26 Follow up: Response: No adverse reaction db 13:36 Drug: Ondansetron IVP 4 mg Route: IVP; Site: right hand; db 16:26 Follow up: Response: No adverse reaction db 14:54 Drug: Meropenem IV 1 grams Route: IV; Rate: calculated rate; Site: right wrist; db 15:59 Follow up: Response: No adverse reaction; IV Status: Completed infusion; IV Intake: db 100ml Medication: 12:59 VIS not applicable for this client. db Intake: 15:59 IV: 100ml; Total: 100ml. db Outcome: 13:38 Decision to Hospitalize by Provider. jmm 16:25 Admitted to Med/surg accompanied by nurse, via stretcher. tiago 16:25 Condition: stable 16:25 Instructed on the need for admit. 16:26 Patient left the ED. db Signatures: Moises Borrego PA PA jmm Moreno, Amanda am2 Alycia Covington, RN RN db Pamela Kilgore mm9 Carina Olivas RN RN nj1 Corrections: (The following items were deleted from the chart) 14:07 11:21 Test, Urine+UC.LAB.BRZ drawn and sent. mm9 EDMS
--- NOTE | 2022-12-30 13:39 | EDPHYS ---
Physician Documentation [facility] Name: Shari Estrella Age: 32 yrs Sex: Female : 1990 Arrival Date: 12/30/2022 Time: 10:25 Bed 15 Private MD: ED Physician Joel Ariza HPI: 12/30 10:29 This 32 yrs old Female presents to ER via EMS with complaints of Urinary Problem. jmm 10:29 The patient presents with urinary symptoms. Is a 32-year-old female with history of m hypertension, spina bifida, chronic UTIs the presents emerged part with complaints of fever chills, bilateral flank pain, nausea. Patient was prescribed Cipro 3 weeks ago for UTI and continues to have discomfort.. 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 - Social history:: Smoking status: Patient denies any tobacco usage or history of. ROS: 10:29 Constitutional: Positive for body aches. jmm 10:29 Back: Positive for flank pain. 10:29 All other systems are negative. Exam: 10:29 Head/Face: atraumatic. Eyes: EOMI, no conjunctival erythema appreciated ENT: Moist [facility] Mucus Membranes Neck: Trachea midline, Supple Chest/axilla: Normal chest wall appearance and motion. Cardiovascular: Regular rate and rhythm. No edema appreciated Respiratory: Normal respirations, no respiratory distress appreciated Abdomen/GI: Non distended Back: Normal ROM 10:29 Constitutional: The patient appears in no acute distress, alert, awake. 10:29 Back: CVA tenderness, that is mild, is noted bilaterally. 10:29 Skin: Appearance: Color: normal in color. 10:29 Neuro: Orientation: is normal, Mentation: is normal, Memory: is normal. Vital Signs: 10:50 BP 131 / 71; Pulse 73; Resp 18; Temp 99.8; Pulse Ox 100% ; Weight 34.02 kg; Pain 7/10; nj1 12:30 BP 113 / 78; Pulse 87; Resp 16; Pulse Ox 100% on R/A; db 13:45 BP 116 / 70; Pulse 58; Resp 16; Pulse Ox 100% on R/A; db 14:45 BP 143 / 77; Pulse 71; Resp 16; Pulse Ox 100% on R/A; db 15:30 BP 132 / 72; Pulse 65; Resp 16; Pulse Ox 96% on R/A; db 16:00 BP 140 / 93; Pulse 67; Resp 16; Pulse Ox 97% on R/A; db 10:50 Pain Scale: Adult nj1 MDM: 10:29 Patient medically screened. [facility] 16:12 Differential diagnosis: urinary tract infection. Data reviewed: vital signs, nurses [facility] notes, lab test result(s). Consideration of Admission/Observation Escalation of care including admission/observation considered. Management of patient was discussed with the following: Hospitalist: Dr. Jain. I considered the following discharge prescriptions or medication management in the emergency department Medications were administered in the Emergency Department. See MAR. Counseling: I had a detailed discussion with the patient and/or guardian regarding: the historical points, exam findings, and any diagnostic results supporting the discharge/admit diagnosis, lab results, the need for further work-up and treatment in the hospital. 12/30 10:29 Order name: CBC with Diff; Complete Time: 13:20 [facility] 12/30 10:29 Order name: CMP; Complete Time: 13:44 [facility] 12/30 10:29 Order name: Lipase; Complete Time: 13:44 [facility] 12/30 10:29 Order name: Urinalysis w/ reflexes; Complete Time: 11:48 [facility] 12/30 10:34 Order name: Lactate w/ 2H reflex if indic.; Complete Time: 13:33 [facility] 12/30 12:00 Order name: Test, Serum [facility] 12/30 12:01 Order name: Blood Culture Adult (2) [facility] 12/30 15:00 Order name: C-Reactive Protein [facility] 12/30 15:00 Order name: Procalcitonin [facility] 12/30 15:00 Order name: CBC with Automated Diff [facility] 12/30 15:00 Order name: CBC with Automated Diff [facility] 12/30 15:00 Order name: Comprehensive Metabolic Panel [facility] 12/30 15:00 Order name: Comprehensive Metabolic Panel [facility] 12/30 15:00 Order name: Magnesium [facility] 12/30 15:00 Order name: Magnesium [facility] 12/30 15:00 Order name: Phosphorus EDNM 12/30 15:00 Order name: Phosphorus [facility] 12/30 14:58 Order name: CONS Physician Consult [facility] 12/30 15:00 Order name: Regular [facility] 12/30 10:29 Order name: IV Saline Lock; Complete Time: 13:36 [facility] 12/30 10:29 Order name: Labs collected and sent; Complete Time: 13:36 [facility] 12/30 13:04 Order name: Labs - recollect needed: recollect blood cultures/ red tube has no label eb blood cultures not labeled correctly; Complete Time: 14:55 12/30 15:24 Order name: Labs - recollect needed: please draw a red or a gold top for all the add eb ons; Complete Time: 16:26 Administered Medications: 13:35 Drug: morphine IVP or IV 2 mg Route: IVP; Infused Over: 4 mins; Site: right hand; db 16:26 Follow up: Response: No adverse reaction db 13:36 Drug: Ondansetron IVP 4 mg Route: IVP; Site: right hand; db 16:26 Follow up: Response: No adverse reaction db 14:54 Drug: Meropenem IV 1 grams Route: IV; Rate: calculated rate; Site: right wrist; db 15:59 Follow up: Response: No adverse reaction; IV Status: Completed infusion; IV Intake: db 100ml Disposition Summary: 12/30/22 13:38 Hospitalization Ordered Hospitalization Status: Inpatient Admission [facility] Provider: Roberot Jain Location: Telemetry/MedSur (Inpatient) [facility] Condition: Stable jmm Problem: an acute exacerbation jmm Symptoms: have improved jm Bed/Room Type: Standard [facility] Room Assignment: 219(12/30/22 15:25) eb Diagnosis - UTI/ Urinary tract infection, site not specified jmm - Failed Outpatient Therapy [facility] Forms: - Medication Reconciliation Form jmm - SBAR form jmm Signatures: Dispatcher [employer] [facility] Moises Borrego PA PA m Patit Mares Danielle RN RN db Brendon, Carina, RN RN nj1 Corrections: (The following items were deleted from the chart) : 10:30 Test, Urine+UC.LAB.BRZ ordered. EDNM EDMS 14: 12:00 Test, Urine+UC.LAB.BRZ reviewed. [facility] EDMS 15: 13:38 rosanna eb
[2022-12-30 13:40] LABS: Potassium 3.7 mEq/L (3.5-5.1)
[2022-12-30] MEDS ORDERED: Meropenem 1000 MG/VIAL IV ONE (14:06)
[2022-12-30] MEDS ORDERED: NA CHLORIDE 0.9% 100 ML ONE (14:06)
--- NOTE | 2022-12-30 14:25 | P.HP ---
Certification for Inpatient Patient admitted to: Inpatient With expected LOS: >2 Midnights Practitioner: I am a practitioner with admitting privileges, knowledge of patient current condition, hospital course, and medical plan of care. Services: Services provided to patient in accordance with Admission requirements found in Title 42 Section 412.3 of the Code of Federal Regulations Patient History Date of Service: 12/30/22 Reason for admission: Pyelonephritis, failed outpatient therapy History of Present Illness: 32yo F, PMH: spinda bifida complicated by neurogenic bladder, chronic pain syndrome, severe scoliosis, hypertension, recurrent UTIs Patient presents with fever, nausea, back / "kidney" pain. She was diagnosed with a UTI about 3 weeks ago at her PCP, was treated with PO Ciprofloxacin but never felt improvement of her symptoms. She presented today due to vomiting and worsening symptoms over the last 3-4 days. She has associated symptoms of cloudy foul smelling urine in addition to n/v, fever, back pain. She denies any other symptoms. She has as past medical history of spinda bifida and straight cathed herself. She has no sensation below her waist. Patient has a Tmax of 99.8, tachycardic in the 90s, normal blood pressure, lactate of 2.9. Urinalysis done in the ED positive for bacteria, no pyuria. She was given IV meropenem and is to be admitted for further medical management. Allergies adhesive tape Allergy (Mild, Verified 10/06/22 22:08) Rash Latex, Natural Rubber Allergy (Verified 10/06/22 22:08) Rash Sulfa (Sulfonamide Antibiotics) Allergy (Verified 10/06/22 22:08) Hives/Rash sulfamethoxazole [From Bactrim] Allergy (Verified 10/06/22 22:08) Hives trimethoprim [From Bactrim] Allergy (Verified 10/06/22 22:08) Hives vancomycin Allergy (Verified 10/06/22 22:08) Hives/Rash Adhesives Allergy (Mild, Uncoded 10/06/22 22:08) Rash Home Medications: Atenolol [Tenormin] 100 mg PO DAILY 02/17/20 Diphenhydramine HCl [Benadryl Allergy] 50 mg PO BEDTIME 10/06/22 Oxycodone HCl/Acetaminophen [Oxycodone-Acetaminophen 10-325] 10 - 325 mg PO Q6HP PRN 10/06/22 - Past Medical/Surgical History Diabetic: No -: Stage 4 decubitus ulcer -: Spina Bifida -: MRSA -: scoliosis -: HTN -: GERD -: Osteomyelitis -: Recurrent UTI -: Multiple back surgeries -: Right great toe amputated -: bowel surgery cecostomy -: Suprapubic stoma -: [employer] shunt Psychosocial/ Personal History: Patient lives at home - Family History Mother -: Hypertension, Diabetes, Other (see notes) Notes: Lupus Father -: Hypertension, Diabetes Notes: Hyperlipidemia - Social History Smoking Status: Never smoker Alcohol use: No CD- Drugs: No Caffeine use: No Review of Systems 10-point ROS is otherwise unremarkable Physical Examination - Physical Exam Integumentary: Pressure ulcer (POA ) - Studies Laboratory Data (last 24 hrs) 12/30/22 12:52: Sodium 138, Potassium 3.7, BUN 3 L, Creatinine 0.47 L, Glucose 104, Total Bilirubin 0.3, AST 32, ALT 24, Alkaline Phosphatase 104, Lipase 19 12/30/22 12:52: WBC 8.40, Hgb 14.2, Hct 43.3, Plt Count 274 Assessment and Plan Discharge Plan: Home Plan to discharge in: Greater than 2 days - Advance Directives Does patient have a Living Will: No Does patient have a Durable POA for Healthcare: No - Code Status/Comfort Care Code Status Assessed: Yes Code Status: Full Code Physician Review Additional Text: Physical Exam: GEN: Alert, oriented x3, NAD HEENT: Normal conjunctiva, sclera anicteric CV: Regular rate and rhythm, no edema Pulm: Nonlabored respirations on room air ABD: Soft, nontender, nondistended MSK: No joint tenderness, Other (+spina bifida), kyphoscoliosis Integumentary: Sacral decubitus ulcer without surrounding erythema, no drainage Neuro: Normal speech, Normal affect, Abnormal sensation (no sensation in b/l legs) Problem list UTI, suspect pyelonephritis Nausea/vomiting Spina bifida, with chronic pain Neurogenic bladder, straight caths Sacral decubitus ulcer, chronic Hypertension UTI, suspect pyelonephritis nausea/vomiting Patient with history of multiple UTIs in the past, with multidrug resistance, including ESBL, Pseudomonas, Enterococcus in the past Patient with SIRS (08/09): +Tachycardia 90s, no leukocytosis, afebrile, normal respiratory qSOFA: 0 lactate: 2.9 patient does not appear toxic, unclear if can be completely attributed to infection, blood pressure normal / hypertensive vomiting possibly playing a role n/v likely secondary to UTI, vs symptom of acidosis Started on meropenem in the ED, continue Merrem for now IVF regular diet zofran Spina bifida, with chronic pain continue home oxycodone Neurogenic bladder patient to continue with usual straight cath sacral decubitus ulcer, chronic does not appear infected, stable continue wound care HTN confirm home med - atenolol, restart patient took meds this morning VTE: lovenox Code: full Dispo: home, ~2-3 days Time Spent Managing Pts Care (In Minutes): 70
[2022-12-30] MEDS ORDERED: ACETAMINOPHEN 500 MG TAB PO PRN (14:56)
[2022-12-30] MEDS ORDERED: Meropenem 1,000 MG in NA CHLORIDE 0.9% 100 ML IV SCH (17:00)
[2022-12-30 17:40] VITALS: BMI 14.6
[2022-12-30] MEDS: NA CHLORIDE 0.9% 1,000 ML IV SCH (17:58)
[2022-12-30] MEDS: Oxycodone HCl/Acetaminophen 1 TAB TAB PO PRN (17:58)
[2022-12-30 19:05] LABS: Potassium 3.1 mEq/L (3.5-5.1)
[2022-12-30] MEDS ORDERED: KETOROLAC 30 MG/ML INJ IV ONE (20:57)
[2022-12-30] MEDS ORDERED: MORPHINE 2 MG/ML SYR IV ONE (22:26)
[2022-12-31] MEDS ORDERED: NA CHLORIDE 0.9% 100 ML ONE (00:13)
[2022-12-31] MEDS ORDERED: Meropenem 1000 MG/VIAL IV ONE (00:19)
[2022-12-31] MEDS: Meropenem 1,000 MG in NA CHLORIDE 0.9% 100 ML IV SCH ×3 (00:31→16:35)
[2022-12-31] MEDS: Oxycodone HCl/Acetaminophen 1 TAB TAB PO PRN ×3 (05:01→18:12)
--- NOTE | 2022-12-31 07:13 | P.PN ---
Date of Service: 12/31/22 Subjective: feels about the same as yesterday nausea slightly improved back pain remains unchanged otherwise no new / worsening problems per patient reports urine appears sulaiman ROS: 10 point ROS as noted above, otherwise negative Physical Exam: GEN: Alert, oriented x3, NAD HEENT: Normal conjunctiva, sclera anicteric CV: Regular rate and rhythm, no edema Pulm: Nonlabored respirations on room air ABD: Soft, nontender, nondistended, suprapubic stoma without surrounding erythema MSK: +spina bifida, kyphoscoliosis Integumentary: Sacral decubitus ulcer without surrounding erythema, no drainage Neuro: Normal speech, Normal affect, no sensation in b/l legs vitals reviewed Problem list UTI, suspect pyelonephritis Nausea/vomiting Spina bifida, with chronic pain Neurogenic bladder, straight caths Sacral decubitus ulcer, chronic Hypertension UTI, suspect pyelonephritis nausea/vomiting h/o multiple UTIs in the past, with multidrug resistance, including ESBL, Pseudomonas, Enterococcus (VRE) in the past Patient with SIRS (08/09): +Tachycardia 90s, no leukocytosis, afebrile, normal respiratory qSOFA: 0 lactate: initially 2.9 -> down to .9 likely multi-factorial, vomiting, possibly from infection; however patient did not appear toxic n/v likely secondary to UTI, vs symptom of acidosis Blood culture pending UA with bacteruria culture not sent in ED ordered and to be sent 12/31 Started on merrem in ED (12/30), continue Merrem for now ID consulted regular diet zofran, PO benadryl Spina bifida, with chronic pain continue home oxycodone Neurogenic bladder continue with usual straight cath sacral decubitus ulcer, chronic does not appear infected, stable continue wound care HTN confirm home med - atenolol, restart VTE: lovenox Code: full Dispo: home, ~2 days
[2022-12-31 07:29] LABS: Absolute Lymphocytes (CBC) 1.4 K/uL (0.7-4.9); Hematocrit 35.4 % (36.0-45.0); Lymphocytes % 21.5 % (15.3-44.8); MCV 94.8 fL (80-100); MPV 7.9 fL (7.6-11.3); RBC Red Blood Cell Count 3.73 M/uL (3.86-4.86)
[2022-12-31 07:49] LABS: Albumin 2.9 g/dL (3.4-5.0); Bilirubin Total 0.3 mg/dL (0.2-1.0); Magnesium 1.8 mg/dL (1.6-2.4); Phosphorus 3.3 mg/dL (2.5-4.9); Potassium 3.3 mEq/L (3.5-5.1); Protein, Total 6.3 g/dL (6.4-8.2)
[2022-12-31] MEDS: ENOXAPARIN 40 MG/0.4 ML SQ SCH (08:31)
[2022-12-31] MEDS: MORPHINE 2 MG/ML SYR IV PRN ×3 (08:32→20:30)
[2022-12-31] MEDS: ONDANSETRON 4 MG/2 ML VIAL IV PRN ×2 (08:32→16:35)
[2022-12-31] MEDS: NA CHLORIDE 0.9% 1,000 ML IV SCH (11:00)
[2022-12-31] MEDS: DIPHENHYDRAMINE 25 MG TAB/CAP PO PRN (20:29)
[2023-01-01] MEDS: Oxycodone HCl/Acetaminophen 1 TAB TAB PO PRN ×5 (00:02→23:30)
[2023-01-01] MEDS ORDERED: NA CHLORIDE 0.9% 100 ML ONE (00:03)
[2023-01-01] MEDS ORDERED: Meropenem 1000 MG/VIAL IV ONE (00:03)
[2023-01-01] MEDS: Meropenem 1,000 MG in NA CHLORIDE 0.9% 100 ML IV SCH ×3 (00:03→17:31)
[2023-01-01 06:09] LABS: Absolute Lymphocytes (CBC) 2.1 K/uL (0.7-4.9); Hematocrit 32.2 % (36.0-45.0); Lymphocytes % 45.8 % (15.3-44.8); MCV 94.8 fL (80-100); MPV 7.7 fL (7.6-11.3)
[2023-01-01 06:25] LABS: BUN Blood Urea Nitrogen 7 mg/dL (7-18); Bicarbonate 30 mEq/L (21-32); Glomerular Filtration Rate 156 ml/min (=/>90); Glucose Level 103 mg/dL (74-106); Magnesium 1.9 mg/dL (1.6-2.4); Potassium 3.6 mEq/L (3.5-5.1); Sodium Level 140 mEq/L (136-145)
[2023-01-01 06:36] LABS: C-Reactive Protein < 2.90 mg/L (<3.00)
--- NOTE | 2023-01-01 07:07 | P.PN ---
Date of Service: 01/01/23 Subjective: feeling slightly better this morning back pain remains unchanged appetite slowing improving afebrile ROS: 10 point ROS as noted above, otherwise negative Physical Exam: GEN: Alert, oriented x3, NAD HEENT: Normal conjunctiva, sclera anicteric CV: Regular rate and rhythm, no edema Pulm: Nonlabored respirations on room air ABD: Soft, nontender, nondistended, suprapubic stoma without surrounding erythema MSK: +spina bifida, kyphoscoliosis Integumentary: Sacral decubitus ulcer without surrounding erythema, no drainage Neuro: Normal speech, Normal affect, no sensation in b/l legs vitals reviewed Problem list UTI, suspect pyelonephritis Nausea/vomiting Spina bifida, with chronic pain Neurogenic bladder, straight caths Sacral decubitus ulcer, chronic Hypertension UTI, suspect pyelonephritis nausea/vomiting h/o multiple UTIs in the past, with multidrug resistance, including ESBL, Pseudomonas, Enterococcus (VRE) in the past Patient with SIRS (08/09): +Tachycardia 90s, no leukocytosis, afebrile, normal respiratory qSOFA: 0 lactate: initially 2.9 -> down to .9 likely multi-factorial, vomiting, possibly from infection; however patient did not appear toxic n/v likely secondary to UTI, vs symptom of acidosis reports fever at home does not appear toxic Blood Cx: no growth UA with bacteruria culture not sent in ED ordered and sent 12/31 Started on merrem in ED (12/30), continue Merrem for now ID consulted if symptoms worsen or don't improve by tomorrow, consider CT Abdomen for further assessment of kidneys, r/o abscess c-reactive initially elevated, normal (01/01), procal normal regular diet zofran, PO benadryl Spina bifida, with chronic pain continue home oxycodone Neurogenic bladder continue with usual straight cath sacral decubitus ulcer, chronic does not appear infected, stable continue wound care HTN confirm home med - atenolol, restart VTE: lovenox Code: full Dispo: home, ~1 day
[2023-01-01 07:10] LABS: Platelet Estimate ADEQ
[2023-01-01 07:11] LABS: Blood Morphology Comment NOT SEEN (NOT SEEN)
[2023-01-01] MEDS ORDERED: POTASSIUM CL SA 10 MEQ TAB PO ONE (09:00)
[2023-01-01] MEDS: ENOXAPARIN 40 MG/0.4 ML SQ SCH (09:20)
[2023-01-01] MEDS: MORPHINE 2 MG/ML SYR IV PRN (09:20)
[2023-01-01] MEDS: ONDANSETRON 4 MG/2 ML VIAL IV PRN (09:20)
--- NOTE | 2023-01-01 10:11 | P.CNS ---
Date of Consult: 01/01/23 Reason for Consult: Recurrent UTI, hx of MDR Chief Complaint: Pyelonephritis, failed outpatient therapy History of Present Illness: Patient is a 32 yo Female with a PMH of spinda bifida complicated by neurogenic bladder, chronic pain syndrome, severe scoliosis, hypertension and recurrent UTIs who presented to the ED with complaints of fever, nausea and back/flank pain. which has been worsening over the last 3-4 days. She was diagnosed with a UTI about 3 weeks ago at her PCP, was treated with PO Ciprofloxacin but never felt improvement of her symptoms. Patient currently in bed. A&Ox4. Denies any nausea, vomiting or back pain. Reports improvement in symptoms since admission. Allergies adhesive tape Allergy (Mild, Verified 12/30/22 21:21) Rash ketorolac [From Toradol] Allergy (Verified 12/30/22 21:21) Hives Latex, Natural Rubber Allergy (Verified 12/30/22 21:21) Rash Sulfa (Sulfonamide Antibiotics) Allergy (Verified 12/30/22 21:21) Hives/Rash sulfamethoxazole [From Bactrim] Allergy (Verified 12/30/22 21:21) Hives trimethoprim [From Bactrim] Allergy (Verified 12/30/22 21:21) Hives vancomycin Allergy (Verified 12/30/22 21:21) Hives/Rash Adhesives Allergy (Mild, Uncoded 10/06/22 22:08) Rash Home medications list reviewed: Yes Home Medications: Atenolol [Tenormin] 100 mg PO DAILY 02/17/20 Oxycodone HCl/Acetaminophen [Oxycodone-Acetaminophen 10-325] 10 - 325 mg PO Q6HP PRN 10/06/22 Diphenhydramine [Benadryl*] 25 mg PO BEDTIME 12/30/22 - Past Medical/Surgical History Diabetic: No -: Stage 4 decubitus ulcer -: Spina Bifida -: MRSA -: scoliosis -: HTN -: GERD -: Osteomyelitis -: Recurrent UTI -: Multiple back surgeries -: Right great toe amputated -: bowel surgery cecostomy -: Suprapubic stoma -: [employer] shunt Psychosocial/ Personal History: Patient lives at home - Family History Mother Medical History: Hypertension, Diabetes, Other (see notes) Notes: Lupus Father Medical History: Hypertension, Diabetes Notes: Hyperlipidemia - Social History Smoking Status: Current every day smoker Alcohol use: No CD- Drugs: No Caffeine use: No Place of Residence: Home Review of Systems 10-point ROS is otherwise unremarkable Genitourinary: As per HPI Neurological: As per HPI Physical Examination Temp Pulse Resp BP Pulse Ox 98.5 F 65 18 119/65 97 01/01/23 08:00 01/01/23 08:00 01/01/23 09:20 01/01/23 08:00 01/01/23 09:20 General: Alert, In no apparent distress, Oriented x3 HEENT: Atraumatic, Normocephalic Neck: Supple, JVD not distended Respiratory: Clear to auscultation bilaterally, Normal air movement, Other (room air) Cardiovascular: No edema, Normal pulses, Other (Left Port-a-cath) Gastrointestinal: Normal bowel sounds, Soft and benign, Non-distended Musculoskeletal: Other (Non-ambulatory. Spinda bifida) Integumentary: Pressure ulcer (Sacrum) Neurological: Normal speech, Normal tone, Normal affect Urinary: Urostomy Laboratory Data - Reviewed Imagings Data: - Reviewed Conclusions/Impression: Problem List Recurrent UTI Pyelonephritis Spina Bifida Neurogenic bladder Chronic Sacral Pressure Injury Hypertension Mild PCM Recurrent UTI Pyelonephritis - Recently prescribed Cipro by PCP for UTI with no improvement in symptoms. - Hx of Spinda Bifida and neurogenic bladder. Has Urostomy, patient straight caths herself Q4H at home. - Recent Urine Culture on 10/28 with MDR Enterococcus faecium and Pseudomonas aeruginosa - UA 12/30: + nitrite, loaded bacteria - Urine culture 12/31: Pending - Currently on Merrem (12/31) No leukocytosis Afebrile Recommendations - UTI: Continue Merrem for now (started 12/31). Awaiting final urine culture results. Will adjust antibiotics as appropriate. - Barrier cream to sacrum and patient Q2H. - Continue supportive care and nutritional support as needed. ID will follow up and monitor patient closely. Case discussed with Becka Coronado
[2023-01-01] MEDS: DIPHENHYDRAMINE 25 MG TAB/CAP PO PRN (21:23)
[2023-01-02] MEDS: Meropenem 1,000 MG in NA CHLORIDE 0.9% 100 ML IV SCH ×2 (01:00→08:46)
[2023-01-02 04:03] LABS: Absolute Lymphocytes (CBC) 2.9 K/uL (0.7-4.9); Hematocrit 32.7 % (36.0-45.0); Lymphocytes % 49.7 % (15.3-44.8); MCV 95.1 fL (80-100); MPV 7.7 fL (7.6-11.3); RBC Red Blood Cell Count 3.43 M/uL (3.86-4.86)
[2023-01-02 04:21] LABS: BUN Blood Urea Nitrogen 5 mg/dL (7-18); Bicarbonate 30 mEq/L (21-32); Glomerular Filtration Rate 156 ml/min (=/>90); Glucose Level 99 mg/dL (74-106); Potassium 3.9 mEq/L (3.5-5.1); Sodium Level 139 mEq/L (136-145)
[2023-01-02 04:31] LABS: C-Reactive Protein < 2.90 mg/L (<3.00)
[2023-01-02] MEDS: Oxycodone HCl/Acetaminophen 1 TAB TAB PO PRN (07:25)
[2023-01-02 08:35] VITALS: BP 118/69; TEMP 97.5
[2023-01-02] MEDS: ENOXAPARIN 40 MG/0.4 ML SQ SCH (08:42)
[2023-01-02] MEDS ORDERED: POTASSIUM CL SA 10 MEQ TAB PO ONE (09:00)
[2023-01-02 09:26] VITALS: O2SAT 98
[2023-01-02] MEDS ORDERED: HEPARIN 500 UNIT/5 ML SYR IV PRN (09:28)
--- NOTE | 2023-01-02 09:57 | P.PN ---
Date of Service: 01/02/23 Chief Complaint: Pyelonephritis, failed outpatient therapy Subjective: No new changes. Physical Examination Temp Pulse Resp BP Pulse Ox 97.5 F 72 18 118/69 98 01/02/23 08:00 01/02/23 08:00 01/02/23 08:25 01/02/23 08:00 01/02/23 08:25 General: Alert, In no apparent distress, Oriented x3 HEENT: Atraumatic, Normocephalic Neck: Supple, JVD not distended Respiratory: Clear to auscultation bilaterally, Normal air movement, Other (room air) Cardiovascular: No edema, Normal pulses, Other (Left Port-a-cath) Gastrointestinal: Normal bowel sounds, Soft and benign, Non-distended Musculoskeletal: Other (Non-ambulatory. Spinda bifida) Integumentary: Pressure ulcer (Sacrum) Neurological: Normal speech, Normal tone, Normal affect Urinary: Urostomy Studies Laboratory Data - Reviewed Imagings Data: - Reviewed Microbiology Data: - Reviewed Medications List Reviewed: Yes Assessment and Plan Problem List Recurrent UTI Pyelonephritis Spina Bifida Neurogenic bladder Chronic Sacral Pressure Injury Hypertension Mild PCM *Allergies: Sulfa, TMP, Vancomycin, Latex * Recurrent UTI Pyelonephritis - Recently prescribed Cipro by PCP for UTI with no improvement in symptoms. - Hx of Spinda Bifida and neurogenic bladder. Has Urostomy, patient straight caths herself Q4H at home. - Recent Urine Culture on 10/28 with MDR Enterococcus faecium and Pseudomonas aeruginosa - UA 12/30: + nitrite, loaded bacteria - Urine culture 12/31: Pending - Currently on Merrem (12/31) Blood cultures 12/30: No growth to date No leukocytosis Afebrile Recommendations - UTI: Continue Merrem for now (started 12/31). Awaiting final urine culture results. Will adjust antibiotics as appropriate. - Barrier cream to sacrum and patient Q2H. - Continue supportive care and nutritional support as needed. ID will follow up and monitor patient closely. Case discussed with Becka Coronado
--- NOTE | 2023-01-03 17:53 | P.DS ---
Admission Date: 12/30/22 Discharge Date: 01/03/23 Disposition: [facility] Discharge Condition: [facility]IR Reason for Admission: Pyelonephritis, failed outpatient therapy Brief History of Present Illness: 32yo F, PMH: spinda bifida complicated by neurogenic bladder, chronic pain syndrome, severe scoliosis, hypertension, recurrent UTIs Patient presents with fever, nausea, back / "kidney" pain. She was diagnosed with a UTI about 3 weeks ago at her PCP, was treated with PO Ciprofloxacin but never felt improvement of her symptoms. She presented today due to vomiting and worsening symptoms over the last 3-4 days. She has associated symptoms of cloudy foul smelling urine in addition to n/v, fever, back pain. She denies any other symptoms. She has as past medical history of spinda bifida and straight cathed herself. She has no sensation below her waist. Patient has a Tmax of 99.8, tachycardic in the 90s, normal blood pressure, lactate of 2.9. Urinalysis done in the ED positive for bacteria, no pyuria. She was given IV meropenem and admitted for further medical management. Hospital Course: Diagnosis UTI. Nausea/vomiting Spina bifida, with chronic pain Neurogenic bladder, straight caths Sacral decubitus ulcer, chronic Hypertension Patient admitted to the medical floor and treated with IV meropenem. UA showed bacteriuria, no WBC and was not reflex to urine culture. She received 3 days of IV meropenem. Patient was. She had no fever or leukocytosis suggesting asymptomatic bacteriuria. Patient has been asymptomatic with stable vitals. She is deemed stable for discharge. Vital Signs/Physical Exam: Temp Pulse Resp BP Pulse Ox 97.5 F 72 18 118/69 98 01/02/23 08:00 01/02/23 08:00 01/02/23 08:25 01/02/23 08:00 01/02/23 08:25 General: Alert, In no apparent distress, Oriented x3 HEENT: Mucous membr. moist/pink Neck: JVD not distended Respiratory: Clear to auscultation bilaterally, Normal air movement Cardiovascular: No edema, Regular rate/rhythm, Normal S1 S2 Gastrointestinal: Soft and benign, Non-distended Integumentary: No rashes, No cyanosis Laboratory Data at Discharge: WBC 5.80 thou/uL (4.3-10.9) 01/02/23 03:42 Hgb 11.0 g/dL (12.0-15.0) L 01/02/23 03:42 Hct 32.7 % (36.0-45.0) L 01/02/23 03:42 Plt Count 230 thou/uL (152-406) 01/02/23 03:42 Sodium 139 mEq/L (136-145) 01/02/23 03:42 Potassium 3.9 mEq/L (3.5-5.1) 01/02/23 03:42 BUN 5 mg/dL (7-18) L 01/02/23 03:42 Creatinine 0.23 mg/dL (0.55-1.02) L 01/02/23 03:42 Glucose 99 mg/dL (74-106) 01/02/23 03:42 Phosphorus 3.3 mg/dL (2.5-4.9) 12/31/22 07:10 Magnesium 1.9 mg/dL (1.6-2.4) 01/01/23 05:19 Total Bilirubin 0.3 mg/dL (0.2-1.0) 12/31/22 07:10 AST 14 U/L (15-37) L 12/31/22 07:10 ALT 16 U/L (13-56) 12/31/22 07:10 Alkaline Phosphatase 73 U/L (45-117) D 12/31/22 07:10 Lipase 19 U/L (13-75) 12/30/22 12:52 Home Medications: Atenolol [Tenormin] 100 mg PO DAILY 02/17/20 Oxycodone HCl/Acetaminophen [Oxycodone-Acetaminophen 10-325] 10 - 325 mg PO Q6HP PRN 10/06/22 Diphenhydramine [Benadryl*] 25 mg PO BEDTIME 12/30/22 Diet: Regular Activity: Fall precautions Followup: NONE,NONE [Primary Care Provider] - Time spent managing pt's care (in minutes): 27
== END 2023-01-02 10:10 | disposition home health service (06) | DRG 690 ==
LOC: ER 10:25 → ERHOLD 14:55 → 2ND 16:03
PROVIDERS: ADMIT Hospitalist; ATTEND Hospitalist
DX: N12 Tubulo-interstitial nephritis, not specified as acute or chronic (principal); I10 Essential (primary) hypertension; N31.9 Neuromuscular dysfunction of bladder, unspecified; L89.159 Pressure ulcer of sacral region, unspecified stage; Q05.9 Spina bifida, unspecified; G89.4 Chronic pain syndrome; M41.9 Scoliosis, unspecified; K21.9 Gastro-esophageal reflux disease without esophagitis; F17.200 Nicotine dependence, unspecified, uncomplicated; B95.2 Enterococcus as the cause of diseases classified elsewhere; B96.5 Pseudomonas (aeruginosa) (mallei) (pseudomallei) as the cause of diseases classified elsewhere; Z88.1 Allergy status to other antibiotic agents; Z88.5 Allergy status to narcotic agent; Z86.14 Personal history of Methicillin resistant Staphylococcus aureus infection; Z91.040 Latex allergy status; Z28.310 Unvaccinated for COVID-19; Z91.048 Other nonmedicinal substance allergy status; Z79.899 Other long term (current) drug therapy; Z89.411 Acquired absence of right great toe
CPT/HCPCS: 36415; 80048; 80053; 81001; 83605; 83690; 83735; 84100; 84145; 84703; 85025; 86140; 87040; 94760; 96365; 96375; 99285; J1642; J1650; J2185; J2270; J2405; J7030

== ENCOUNTER 2023-01-21 12:26 | Emergency (ER) | payer OTHER ==
--- OUTSIDE RECORDS SUMMARY | 2023-01-21 12:31 | XMS REPORT | Continuity of Care Document ---
:1990 Author Organization [facility] t Address [address] [place] [address] Care Team Providers Name Role Phone PCP, PATIENT DOES NOT HAVE A Primary Care Physician Unavaila ble Doctor Unassigned, 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, scoliosis, 00:00: t & Plan: of thoracolum thoracolum 00 Resulting Medicin bar region bar region in severe e restricti ve lung disease Sleep-diso Sleep-diso Disease Active Last Tanna see rdered 12-01 [facility] breathing breathing 00:00: t & Plan: [...] indicated Restrictiv Restrictiv Disease [facility] lung 12-01 [facility] disease disease 00:00: t & Plan: of due to due to 00 PFt poor Medicin kyphoscoli kyphoscoli quality, e osis osis patient was very anxious during testing, sig restricti on Alveolar Alveolar Disease Active [facility]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 hypoventil 12-01 [facility] ation ation 00:00: t & Plan: of 00 High risk Medicin patient e Will check on sleep study 17 weeks 17 weeks Disease Active [facility] gestation gestation 12-01 [facility] of 00:00: t & Plan: of 00 High risk M edicin patient, e will follow closely Sleep-diso Sleep-diso Disease Active Last Tanna see melina 12-01 [facility] breathing breathing 00:00: t & Plan: [...] of 00:00: [place] 00 Medical Branch 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 spina bifida s/p augmentat ion cystoplas ty and catheteri zable channel by Dr. Spicer at [facility] as a ch Scoliosis Scoliosis Disease [...] adverse 00:00: [place] reaction Medical s Branch Sulfa Propensi Active Rash [facility] Antibiot ty to 4-13 College ics adverse 00:00: of reaction 00 Medicin s to e drug SULFA Drug Active Rash Univers (SULFONA Class 4-13 ity of MIDE 00:00: [place] ANTIBIOT 00 Medical ICS) Branch Sulfa Propensi Active Rash Univers (Sulfona ty to 4-13 ity of mide adverse 00:00: [place] Antibiot reaction 00 Medica l ics) s Branch Sulfamet Propensi Active Rash [facility] hoxazole ty to 02-25 [facility] W/Trimet adverse 00:00: of hoprim reaction Medicin s to e drug Latex Propensi Active Rash [facility] ty to 02-25 College adverse 00:00: of reaction 00 Medicin s to e substanc e LATEX DRUG Active High Rash Univers INGREDI 02-25 ity of 00:00: [place] 00 Medical Branch SULFAMET DRUG Active Hives Univers HOXAZOLE 02-25 ity of (BULK) 00:00: [place] 00 Medical Branch Latex Propensi Active Nausea Univers ty to and/or 02-25 ity of adverse Vomiting 00:00: [place] reaction Medical s Branch Sulfamet Propensi Active Rash Univer s hoxazole ty to 02-25 ity of (Bulk) adverse 00:00: [place] reaction 00 Medical s Branch Social History Social Habit Start Date Stop Date Quantity Comments Source History [facility] of Alcohol Std Medicine Drinks History [facility] ge of Alcohol Binge Medicine Exposure to 2022-03-15 2022-03-25 Not sure [facility] SARS-CoV-2 00:00:00 18:16:00 [place] [facility] (event) Branch Tobacco use and 2022-03-25 2022-03-25 Smokeless tobacco Un iversity of exposure 00:00:00 00:00:00 non-user [facility] Branch Alcohol intake 2022-03-25 2022-03-25 Current University of 00:00:00 00:00:00 non-drinker of [facility] alcohol (finding) Branch History [facility] 2018-11-25 2018-11-25 1 [facility] ge of Alcohol Frequency 00:00:00 00:00:00 Medicin e Sex Ass[birth year] At [birth year] MAGGIE Teran 00:00:00 00:00:00 [facility] Center Smoking Status Start Date Stop Date Source Never smoked tobacco [facility] Medications Ordered Filled Start Stop Current Ordering [...] 00 :00 dose, On Medi jose ORCINE)(PF) [facility] ) 100 03/28/22 at unit/mL 1330, injection [...] times Medical daily. Branch cefUROXime 2021- No [id number] 500mg Take 1 Univers 500 mg 8-23 04-05 tablet by ity of tablet 00:00: 04:59 mouth in [place] 00 :00 the Medical morning Branch and 1 tablet in the evening. Do all this for 7 days. magnesium 2021- No 2g 2 g, IV Univ ers sulfate in 03-26 Piggyback, it y of water 2 17:45: 20:17 Administer [place] as gram/50 mL 00 :00 over 60 Medica l (4 %) Minutes, Branch infusion 2 ONCE NOW, g 1 dose, On [place] 03/26/22 at 1245, Routine enoxaparin Yes 40mg 40 mg, Unive rs (LOVENOX) 03-26 Subcutaneo ity of injection 14:00: [place], [place]ILY, [place] 40 mg 00 First dose Medical on [facility] 03/26/22 at 0900, Until Discontinu ed, Routine atenoloL Yes 100mg 100 mg, Unive rs (TENORMIN) 03-26 Oral, ity of tablet 100 14:00: DAILY, [place] mg 00 First dose Medical on [facility] 03/26/22 at 0900, Until Discontinu ed, Routine KCL 2021- No 40meq 40 mEq, Univers (KLOR-CON 03-26 Oral, ity of M20) tablet 13:30: 13:32 ONCE, 1 [place] 40 mEq 00 :00 dose, On [facility] 03/26/22 at 0830, Routine dicyclomine Yes 10mg 10 mg, Univ ers (BENTYL) 03-26 Oral, QID, ity o f capsule 10 13:00: First dose [place] mg 00 on [facility] 03/26/22 at Branch 0800, Until Discontinu ed, Routine potassium 2021- No 10meq 10 mEq, IV Univers chloride in 03-26 Piggyback, i ty of water 10 13:00: 15:42 Q1H, 2 [place] mEq/100 mL 00 :00 doses, Medical RTU 10 mEq First dose Bra nch on [place] 03/26/22 at 0800, Last dose on [place] 03/26/22 at 0900, Administer over 60 Minutes, 100 mL meropenem 2021- No 1000mg 1,000 mg, Univers (MERREM) 03-26 IV ity of 1,000 mg in 09:00: 08:59 Piggyback, [place] NaCl 0.9% 00 :00 Q8H ABX, Medica l (NS) 50 mL 21 doses, Bran ch MINI-BAG First dose on [place] 03/26/22 at 0400, Last dose on [facility] 04/01/22 at 2000, Administer over [...] [place] 40 mEq 00 :00 dose, On [facility] 03/26/22 at 0100, Routine ondansetron Yes 4mg 4 mg, Slow Univers (ZOFRAN 03-26 IV Push, ity of (PF)) 02:43: Q6HPRNUlm, [place] injection 4 03 Starting Medi jose mg on Sat Branch 03/25/22 at 2143, Until Discontinu ed, Routine, Nausea and Vomiting (N/V) acetaminoph Yes 650mg 650 mg, Un vamsi en 03-26 Oral, ity of (TYLENOL) 02:42: Q6RN [place] tablet 650 55 Starting Medic al mg on Sat Branch 03/25/22 at 2142, Until Discontinu ed, Routine, Pain (scale 1-3) oxyCODONE-a 0 Yes 1{tbl} 1 tablet, Univers cetaminophe 03-26 Oral, ity of n 02:41: Q6ROvalo, [place] (PERCOCET) 13 Starting Medic al 5-325 mg on [facility] Branch per tablet 03/25/22 at 1 tablet 2140, Until Discontinu ed, Pain (scale 7-10) diphenhydrA Yes 50mg 50 mg, Univ ers MINE 03-26 Oral, ity of (BENADRYL) 02:40: [facility] 20 Starting Medica l mg on Sat Branch 03/25/22 at 2140, Until Discontinu ed, Routine, Congestion /Allergies , Sleep meropenem 2021- No 1000mg 1,000 mg, Univers (MERREM) 03-26 IV ity of 1,000 mg in 01:45: 01:13 [place], [place] NaCl 0.9% 00 :00 ONCE, 1 Medical (NS) 50 mL dose, On Bran h MINI-BAG [facility] 03/25/22 at 2044, Administer over [...] dicyclomine 2019-0 Yes 10mg Take 10 mg [facility] (BENTYL) 10 24 by mouth. Col lege MG capsule 19:29: of 04 Medicin e ondansetron 2020-0 Yes [place] (ZOFRAN) 4 - College MG tablet 00:00: of 00 Medicin e promethazin 2020-0 Yes [facility] e 08-07 College (PHENERGAN) 00:00: of 25 MG 00 Medicin tablet e ondansetron 2020-0 Yes Univer s 4 mg tablet 08-07 ity of 00:00: [place] [facility] ondansetron 2020-0 Yes Univer s 4 mg tablet 08-07 ity of 00:00: [place] [facility] ondansetron 2020-0 Yes Univer s 4 mg tablet 08-07 ity of 00:00: [place] 00 Medical Branch diphenhydrA 2018-0 Yes 50mg Take 50 mg [facility] MINE -24 by mouth [facility] (BENADRYL) 16:23: daily. of 25 MG 12 Medicin capsule e diphenhydrA Yes 50mg Take 50 mg [place] MINE -24 by mouth [facility] (BENADRYL) 16:23: daily. of 25 MG 12 Medicin capsule e labetalol Yes [id number] 200mg Take 1 U nivers 200 mg 9-16 tablet by ity of tablet 00:00: mouth 2 [place] (two) Medical times Branch daily. labetalol Yes [id number] 200mg Take 1 U nivers 200 mg 9-16 tablet by ity of tablet 00:00: mouth 2 [place] (two) Medical times Branch daily. labetalol Yes [id number] 200mg Take 1 U nivers 200 mg 9-16 tablet by ity of tablet 00:00: mouth [place] (two) Medical times Branch daily. nystatin-tr Yes [id number] [facility]ge (MYCOLOG) 00:00: clean dry of ointment 00 groin BID Medici n x 7 days e nystatin-tr Yes [id number] [facility] (MYCOLOG) 00:00: clean dry of ointment 00 groin BID Medici n x 7 days e oxybutynin 2019- No [id number] 10mg Take 1 Tab [place] (DITROPAN-X 12-12 by mouth Col lege L) 10 MG CR 00:00: 00:00 daily. of tablet 00 :00 Medicin e nitrofurant 2019- No 1{capsu Take 1 Cap [facility] oin, 11-18 le} by mouth [facility] macrocrysta 00:00: 00:00 daily. of l-monohydra 00 :00 Medicin te, e (MACROBID) 100 MG capsule Prenat-Fe 2019- No 1{tbl} Take 1 Tab [facility] Poly-Methfo 11-18 by mouth Col lege l-FA-DHA 00:00: 00:00 daily. of (VITAFOL 00 :00 Medicin ULTRA) e 29-0.6-0.4- 200 MG CAPS DICLEGIS 2019- No 3{tbl} Take 3 [facility] or 10-10 MG -04-29 Tabs by [place] TBEC 00:00: 00:00 mouth of 00 :00 daily. 2 Medicin tablets in e am and 1 tab in PM Cholecalcif 2018- Yes 1{tbl} Take 1 Tab [facility] dorene 3-12 by mouth College (VITAMIN 00:00: daily. of D-3) 1000 00 Medicin units CAPS e Cholecalcif 2019-0 Yes 1{tbl} Take 1 Tab [facility] dorene 3-12 by mouth College (VITAMIN 00:00: [...] tablet labetalol 2018-0 Yes 200mg Take 200 [place] [facility] (NORMODYNE) 2-15 mg by College 200 MG 00:00: mouth of tablet 00 every 12 Medicin hours. e labetalol 2019-0 Yes 200mg Take 200 [place] [facility] (NORMODYNE) 2-15 mg by College 200 MG 00:00: mouth of tablet 00 every 12 Medicin hours. e atenolol 2016- Yes DAILY [place] (TENORMIN) 2-08 College 50 MG 00:00: of tablet 00 Medicin e Immunizations Ordered Filled Immunization Date Status Comments Sourc e Immunization Name Name [facility] 2019-02-08 Completed [facility] 00:00:00 [facility] 2019-02-08 Completed [facility] 00:00:00 [facility] 2019-02-08 Completed University of 00:00:00 [facility] TDAP 2019-01-30 Completed University of 00:00:00 [facility] Branch TDAP 2019-01-30 Completed University of 00:00:00 [facility] Branch TDAP 2019-01-30 Completed University of 00:00:00 [facility] Branch HPV9 2017-02-15 Completed University of 00:00:00 [place] [facility] HPV9 2017-02-15 Completed University of 00:00:00 [facility] Branch HPV9 2017-02-15 Completed University of 00:00:00 [facility] Vital Signs Vital Name Observation Time Observation Value Comments Source Systolic blood 2022-03-28 16:21:00 107 mm[Hg] Univer sity of pressure [facility] Diastolic blood 2022-03-28 16:21:00 55 mm[Hg] Unive rsity of pressure [facility] Heart rate 2022-03-28 16:21:00 63 /min [facility] Body temperature 2022-03-28 16:21:00 36.22 Pati [facility] Res[facility] rate 2022-03-28 16:21:00 18 /min [facility] Oxygen saturation in 2022-03-28 16:21:00 100 /min [facility] Arterial blood by [facility] Pulse oximetry [place] Body weight 2022-03-28 08:50:00 32.977 kg [facility] BMI 2022-03-28 08:50:00 22.18 kg/m2 [facility] Systolic blood 2019-08-29 19:27:00 135 mm[Hg] [facility] of pressure Medicine Diastolic blood 2019-08-29 19:27:00 95 mm[Hg] [facility] Medicine Heart rate 2019-08-29 19:27:00 93 /min [facility] Body temperature 2019-08-29 19:27:00 36.67 Pati [facility] Body weight 2019-08-29 19:27:00 31.752 kg [facility] BMI 2019-08-29 19:27:00 21.36 kg/m2 [facility] Systolic blood 2019-08-29 19:27:00 135 mm[Hg] [facility] pressure Medicine Diastolic blood 2019-08-29 19:27:00 95 mm[Hg] [facility] Medicine Heart rate 2019-08-29 19:27:00 93 /min [facility] ollege of Medicine Body temperature 2019-08-29 19:27:00 36.67 Pati [facility] Body weight 2019-08-29 19:27:00 31.752 [address] [facility] ollege of [facility] BMI 2019-08-29 19:27:00 21.36 kg/m2 [facility] ol[facility] of Medicine Systolic blood 2019-04-29 16:21:00 118 mm[Hg] [facility] pressure Medicine Diastolic blood 2019-04-29 16:21:00 79 mm[Hg] [facility] Medicine Heart rate 2019-04-29 16:21:00 95 /min [facility] ol[facility] of Medicine Body height 2019-04-29 16:21:00 121.9 cm [facility] Body weight 2019-04-29 16:21:00 39.463 kg [facility] BMI 2019-04-29 16:21:00 26.55 kg/m2 [facility] Systolic blood 2019-04-29 16:21:00 118 mm[Hg] [facility] pressure Medicine Diastolic blood 2019-04-29 16:21:00 79 mm[Hg] [facility] Medicine Heart rate 2019-04-29 16:21:00 95 /min [facility] of Medicine Body height 2019-04-29 16:21:00 121.9 cm [facility] of Medicine Body weight 2019-04-29 16:21:00 39.463 [address] [facility] of Medicine BMI 2019-04-29 16:21:00 26.55 kg/m2 [facility] Procedures Procedure Date / Time Performing Clinician Source Performed HOME HEALTH - OTHER 2022-09-21 06:01:00 Doctor Unassigned, [facility] H. Rivera Colon Medical Branch PHYSICIAN ORDERS 2022-06-22 06:01:00 Doctor Unassigned, [facility] Name Medical Branch MAGNESIUM 2022-03-28 08:55:00 Geovani Negrito [facility] BASIC METABOLIC PANEL 2022-03-28 08:55:00 Geovani Negrito [facility] (NA, K, CL, CO2, GLUCOSE, Medica l Branch BUN, CREATININE, CA) BASIC METABOLIC PANEL 2022-03-27 09:09:00 Abdulaziz Cabrera [facility] (NA, K, CL, CO2, GLUCOSE, Medica l Branch BUN, CREATININE, CA) CBC WITH DIFF 2022-03-27 09:09:00 [facility] POTASSIUM SERUM 2022-03-26 19:21:00 Geovani [facility] PHOSPHORUS 2022-03-26 10:11:00 Geovani [facility] MAGNESIUM 2022-03-26 10:11:00 Geovani [facility] COMP. METABOLIC PANEL 2022-03-26 10:11:00 [id number] CBC WITH DIFF 2022-03-26 10:11:00 [facility] PO[facility] 2022-03-26 00:46:00 Yeni Lockett [facility] COMP. METABOLIC PANEL 2022-03-25 23:54:00 Yeni Lockett [facility] ([id number]) [facility] CBC WITH DIFF 2022-03-25 23:54:00 Yeni Lockett [facility] URINALYSIS 2022-03-25 23:54:00 Yeni Lockett [facility] URINE CULTURE 2022-03-25 23:54:00 Yeni Lockett [facility] COVID-19 (ID NOW RAPID 2022-03-25 23:54:00 LockettYeni harley [facility] TESTING) Medical Branch LAB ONLY COVID 2022-03-25 23:54:00 Yeni Lockett [facility] Plan of Care Planned Activity Planned Date Details Comments Source Future Scheduled TETANUS SHOT [facility] eg Test (ADULT) [code = of Medicine TETANUS SHOT (ADULT)] Future Scheduled HIV SCREENING [code [facility] or [facility] Test = HIV SCREENING] of Medicine Future Scheduled CERVICAL CANCER [place] [facility] Test SCREENING 3 YEAR of Medicine FOLLOW UP [code = CERVICAL CANCER SCREENING 3 YEAR FOLLOW UP] Future Scheduled FLU VACCINE > 6 [facility] C ollege Test MONTHS [code = FLU of Medici ne VACCINE > 6 MONTHS] Future Scheduled URINALYSIS AUTO Ordered: 08/29/2019 [employer] Test W/SCOPE [code = of Medicine 71120-2] Future Scheduled TETANUS SHOT [facility] Gopal ege Test (ADULT) [code = of [...] UP] Future Scheduled FLU VACCINE > 6 [facility] C ollege Test MONTHS [code = FLU of Medici ne VACCINE > 6 MONTHS] Future Scheduled VIDEO URODYNAMICS 1 Occurrences [employer] Test [code = 25121] starting 08/29/2019 of Med icine until 08/29/2020 Future Scheduled US RENAL BILATERAL 1 Occurrences [employer] [facility] Test [code = 79943] starting 08/29/2019 of Med icine until 08/29/2020 Future Scheduled CYSTOSCOPY [code = 1 Occurrences [employer] [facility] Test [id number]] starting 08/29/2019 of Medic ine until 08/29/2020 Future Scheduled CULTURE, 2 Occurrences [facility] Col lege Test URINE/SENSITIVITY starting 08/29/2019 of Medicine ON ALL [code = until 08/28/2020 44226-1] Encounters Start End Encounter Admission Attending Care Care Encounter Source Date/Time Date/Time Type Type Clinicians Facility Department ID 2022-09-21 2022-09-21 Orders Doctor HURST 1.2.840.114 [id number] Univers 00:00:00 00:00:00 Only UnassignedJESSICA [id number] ity of H. Rivera Colon [facility] [id number] [place] as [phone] [facility] 009 Branch 2022-06-22 2022-06-22 Orders Doctor NATALI Reina.2.840.114 [id number] Univers 00:00:00 00:00:00 Only UnassignedJESSICA [id number] ity of [facility] [id number] [facility] [place] [id number] [facility] 009 Branch 2022-03-25 2022-03-28 Outpatient X SNEHA [facility] [id number] Univers 18:14:00 12:33:00 SONJA monson [facility] 2022-03-25 2022-03-28 Emergency Yeni Lockett [facility] 1.2.840. 114 [id number] Univers 18:14:00 12:33:00 Sonja Hoover TENZIN [id number] ity [facility] [id number] [facility] [phone] [place] [id number] [place] 2022-02-15 2022-02-15 [facility] [address] [place] 05:40:00 05:40:00 OZ 0713 [facility] 2021-01-10 2021-01-10 Outpatient [facility] [id number] Univers [facility] 2020-11-17 2020-11-17 Orders Doctor HURST 1.2.840.114 [id number] 00:00:00 00:00:00 Only Unassigned, JESSICA [id number] H. Rivera Colon [facility] [id number] [id number] [id number] 2020-11-08 2020-11-08 Outpatient [facility] [id number] Univers 00:00:00 00:00:00 ity [facility] 2020-11-08 2020-11-08 Orders Doctor HURST 1.2.840.114 [id number] 00:00:00 00:00:00 Only Unassigned, JESSICA [id number] [facility] 4.2.7.2.686 [id number] 009 2020-10-11 2020-10-11 Telephone Cl [facility] 1.2.840.114 [id number] 00:00:00 00:00:00 [facility] [id number] [place] [id number] Professio [phone] nal [address] 2020-10-10 2020-10-10 Orders Doctor NATALI 1.2.840.114 [id number] 00:00:00 00:00:00 Only Unassigned, JESSICA [id number] H. Rivera Colon [place] [id number] 009 2020-09-17 2020-09-17 [facility] 1.2.840.114 [id number] 16:26:39 16:41:39 Visit Lab Main [place] [id number] [place] 4.2.7.2.686 Professio [phone] [address] 2020-09-17 2020-09-17 [facility] [id number] Univers 16:30:00 16:30:00 [facility] 2020-09-17 2020-09-17 Orders Doctor HURST 1.2.840.114 [id number] 00:00:00 00:00:00 Only Unassigned, JESSICA [id number] H. Rivera Colon [place] [id number] [id number] 009 2020-07-05 2020-07-05 [facility] [id number] Univers 14:30:00 14:30:00 [facility] 2020-07-05 2020-07-05 [facility] 1.2.840.114 [id number] 14:05:50 14:20:50 Visit Lab Main [place] [id number] [place] 4.2.7.2.686 Professio [phone] [address] 2020-07-05 2020-07-05 Orders Doctor NATALI Reina.2.840.114 [id number] 00:00:00 00:00:00 Only Unassigned, JESSICA [id number] H. Rivera Colon [place] [id number] [id number] 009 2020-05-17 2020-05-17 Orders Doctor NATALI Tinoco2.840.114 [id number] 00:00:00 00:00:00 Only Unassigned, JESSICA 350.1.13.10 [facility] 4.2.7.2.686 [id number] 009 2020-03-18 2020-03-18 Orders Doctor NATALI 1.2.840.114 [id number] 00:00:00 00:00:00 Only Unassigned, JESSICA 350.1.13.10 [facility] 4.2.7.2.686 [id number] 009 2020-03-09 2020-03-09 Orders Doctor NATALI 1.2.840.114 [id number] 00:00:00 00:00:00 Only Unassigned, JESSICA 350.1.13.10 [facility] 4.2.7.2.686 [id number] 009 2020-01-05 2020-01-05 Orders Doctor NATALI 1.2.840.114 [id number] 00:00:00 00:00:00 Only Unassigned, JESSICA 350.1.13.10 H. Rivera Colon [facility] 4.2.7.2.686 [id number] 009 2019-12-18 2019-12-18 Telephone [facility] 1.2.840.114 [id number] 00:00:00 00:00:00 [place] A [place] [id number] [place] 4.2.7.2.686 Professio [phone] [address] 2019-12-16 2019-12-16 Telephone [facility] 1.2.840.114 [id number] 00:00:00 00:00:00 [place] A [place] [id number] [place] 4.2.7.2.686 Professio [phone] [address] 2019-12-09 2019-12-09 Orders Doctor NATALI 1.2.840.114 [id number] 00:00:00 00:00:00 Only Unassigned, JESSICA 350.1.13.10 [facility] 4.2.7.2.686 [id number] 009 2019-11-24 2019-11-24 Telephone [facility] 1.2.840.114 [id number] 00:00:00 00:00:00 [place] A [place] [id number] [place] 4.2.7.2.686 Professio [phone] [address] 2019-11-24 2019-11-24 Orders Doctor NATALI 1.2.840.114 [id number] 00:00:00 00:00:00 Only Unassigned, JESSICA 350.1.13.10 [facility] 4.2.7.2.686 [id number] 009 2019-11-07 2019-11-07 Orders Doctor NATALI 1.2.840.114 [id number] 00:00:00 00:00:00 Only Unassigned, JESSICA 350.1.13.10 [facility] 4.2.7.2.686 [id number] 009 2019-11-05 2019-11-05 [facility] 1.2.840.114 [id number] 00:00:00 00:00:00 [place] A [place] [id number] [place] 4.2.7.2.686 Professio [id number] [address] 2019-10-30 2019-10-30 Telephone [facility] 1.2.840.114 [id number] 00:00:00 00:00:00 [facility] 350.1.13.10 [place] 4.2.7.2.686 Professio [phone] [address] 2019-10-30 2019-10-30 Orders Doctor HURST 1.2.840.114 [id number] 00:00:00 00:00:00 Only Unassigned, JESSICA 350.1.13.10 [facility] 4.2.7.2.686 [id number] 009 2019-10-22 2019-10-22 [facility] 1.2.840.114 [id number] 00:00:00 00:00:00 [facility] [id number] [place] 4.2.7.2.686 Professio [phone] [address] 2019-10-20 2019-10-20 [facility]phone [facility] 1.2.840.114 [id number] 00:00:00 00:00:00 [facility] [id number] [place] [id number] Professio [phone] nal [facility] [address] 2019-10-15 2019-10-15 Telephone Cl [facility] 1.2.840.114 [id number] 00:00:00 00:00:00 [facility] [id number] [place] [id number] Professio [phone] [place] [address] [address] 2019-10-08 2019-10-08 [facility] 1.2.840.114 [id number] 00:00:00 00:00:00 [facility] [id number] [place] [id number] Professio [phone] [place] [address] [address] 2019-08-29 2019-08-29 Office [facility] [id number] 13:02:13 13:12:13 Visit Christopher AMBULATOR 350.1.13.21 P Y 0.2.7.2.686 [id number] 2019-08-29 2019-08-29 Office CASPER Vigil [id number] [facility] 13:02:13 13:12:13 Visit Christopher AMBULATOR 350.1.13.21 [place] P Y 0.2.7.2.686 leobardo Lomas [id number] [facility] faina 300 e 2019-08-15 2019-08-15 Outpatient Patrick CL, [facility] [id number] [employer] 15:00:00 15:09:49 WONDIFUL ity o f [facility] 2019-05-15 2019-05-15 Outpatient Patrick JEAN [facility] [id number] [employer] 15:00:00 15:59:45 WONDIFUL ity o f [facility] 2019-04-29 2019-04-29 Office Jeff SHIRLEY [id number] [facility] 10:53:12 12:18:36 Visit Kt, AMBULATOR 350.1.13.21 College Rasheed Kermit Y 0.2.7.2.686 of [place]ola [id number] [facility] faina 800 e 2019-04-29 2019-04-29 Office Jeff [facility] [id number] 10:53:12 12:18:36 Visit Kt AMBULATOR 350.1.13.21 Rasheed Leon 0.2.7.2.686 [place] [phone] [id number] 2019-04-21 2019-04-21 Outpatient R CL, [facility] [id number] [employer] 16:30:00 16:55:27 WONDIFUL iona salcedo [facility] Results Test Description Test Time Test Comments Results Result Comments Source MAGNESIUM 2022-03-28 11:10:16 Test Item Value Reference Range Interpretation Comme nts MAGNESIUM (test code = 3126855802) 1.8 mg/dL 1.7-2.4 Lab Interpretation (test code = 62658-9) [facility] (NA, K, CL, CO2, GLUCOSE, BUN, CREATININE, CA)2022-03-28 11:10:15 Test Item Value Reference Range Interpretation Comments NA (test code = 136 mmol/L 135-145 1758665923) K (test code = 4.1 mmol/L 3.5-5 1904924833) CL (test code = 103 mmol/L 98-108 3521955991) CO2 TOTAL (test code = 30 mmol/L 23-31 3924062846) AGAP (test code = 2-16 8339952580) BUN (test code = 4 mg/dL 7-23 L 9977303082) GLUCOSE (test code = 100 mg/dL 70-110 7391177148) CREATININE (test code = 0.40 mg/dL 0.5-1.04 L 3738256867) CALCIUM (test code = 8.7 mg/dL 8.6-10.6 6267559509) eGFR (test code = mL/min/1.73m2 9014680365) GENARO (test code = GENARO) Association of [...] tests). Lab Interpretation Abnormal (test code = 42496-5) [facility] [id number] 19:44:05 Test Item Value Reference Range Interpretation Comments K (test code = 9585450577) 5.7 mmol/L 3.5-5 H Lab Interpretation (test code = Abnormal 74893-9) [facility] [id number] 00:46:00 Test Item Value Reference Range Interpretation Comments POCT PREG (test code = 1605) Negative On board controls acceptable with Present C Line (test code = 3574) POCT PREG LOT # (test code = 3575) [id number] POCT PREG TEST DATE (test 07/05/23 code = 3576) Lab Interpretation (test code = Normal 17607-7) [facility] (11987)2022-03-26 00:22:26 Test Item Value Reference Range Interpretation Comments NA (test code = 136 mmol/L 135-145 5258785813) K (test code = 3.0 mmol/L 3.5-5 L 0566249192) CL (test code = 100 mmol/L 98-108 7552908751) CO2 TOTAL (test code = 26 mmol/L 23-31 4852401542) AGAP (test code = 2-16 5320547224) BUN (test code = 3 mg/dL 7-23 L 8741386472) GLUCOSE (test code = 100 mg/dL 70-110 0361134855) CREATININE (test code = 0.41 mg/dL 0.5-1.04 L 9548790659) TOTAL BILI (test code = 0.3 mg/dL 0.1-1.4 4851611473) CALCIUM (test code = 9.3 mg/dL 8.6-10.6 2458013507) T PROTEIN (test code = 7.3 g/dL 6.3-8.2 2976740066) ALBUMIN (test code = 4.4 g/dL 3.5-5 6885558918) ALK PHOS (test code = 143 U/L 34-122 H 8292653768) ALTv (test code = 15 U/L 5-35 1742-6) AST(SGOT) (test code = 23 U/L 13-40 3725291009) eGFR (test code = mL/min/1.73m2 6398395018) GENARO (test code = GENARO) Association of [...] tests). Lab Interpretation Abnormal (test code = 13954-7) [facility] WITH [id number] 00:09:04 Test Item Value Reference Range Interpretation Comments WBC (test code = See_Comment H [Automated 8190-2) message] The sy stem which generated this [...] RDW-SD (test code = 47.4 fL 39-49.9 10311-7) RDW-CV (test code = 14.1 % 12-15.5 788-0) PLT (test code = See_Comment H [Automated 777-3) message] The sy stem which generated this result transmitted reference range : 166 - 358 10*3/ ?L. The reference r tenisha was not used to interpret this result as normal/abnormal . MPV (test code = 8.9 fL 9.5-12.9 L 25491-4) NRBC/100 WBC (test See_Comment [Automat ed code = 3690938926) message] The system which generated this result transmitted reference range : 0.0 - 10.0 /100 WBCs. The refer ence range was not u sed to interpret th is result as normal/abnormal . NRBC x10^3 (test code See_Comment [Auto mated = 6823976783) message] The s ystem which generated this result transmitted reference range : 10*3/?L. The reference range was not used to interpret this result as normal/abnormal . GRAN MAT (NEUT) % 73.0 % (test code = 770-8) IMM GRAN % (test code 0.40 % = 3899427204) LYMPH % (test code = 20.4 % 736-9) MONO % (test code = 5.4 % 5905-5) EOS % (test code = 0.4 % 713-8) BASO % (test code = 0.4 % 706-2) GRAN MAT x10^3(ANC) 9.39 10*3/uL 1.88-7.09 H (test code = 6248752409) IMM GRAN x10^3 (test 0.05 10*3/uL 0-0.06 code = 9108460281) LYMPH x10^3 (test code 2.62 10*3/uL 1.32-3.29 = 731-0) MONO x10^3 (test code 0.70 10*3/uL 0.33-0.92 = 742-7) EOS x10^3 (test code = 0.05 10*3/uL 0.03-0.39 711-2) BASO x10^3 (test code 0.05 10*3/uL 0.01-0.07 = 704-7) Lab Interpretation Abnormal (test code = 36590-5) [facility]"
[2023-01-21 13:29] LABS: Specific Gravity 1.013 (1.005-1.030); Urine Bacteria None Seen /HPF (<20); Urine Bilirubin NEGATIVE (Negative); Urine Blood Negative (Negative); Urine Clarity Turbid (Clear); Urine Color Light-Yellow (Yellow); Urine Glucose NEGATIVE (Negative); Urine Protein TRACE (Negative); Urine RBC <5 /HPF (None Seen); Urine Urobilinogen Normal (Normal); Urine pH 6.5 (5.0-7.0)
[2023-01-21 13:31] LABS: Specific Gravity 1.013 (1.005-1.030)
[2023-01-21 14:10] LABS: Absolute Lymphocytes (CBC) 1.9 K/uL (0.7-4.9); Hematocrit 37.1 % (36.0-45.0); Lymphocytes % 24.3 % (15.3-44.8); MCV 94.1 fL (80-100); MPV 8.1 fL (7.6-11.3); RBC Red Blood Cell Count 3.95 M/uL (3.86-4.86)
[2023-01-21 14:21] LABS: Albumin 3.5 g/dL (3.4-5.0); Bilirubin Total 0.3 mg/dL (0.2-1.0); Protein, Total 7.2 g/dL (6.4-8.2)
[2023-01-21] MEDS ORDERED: MORPHINE 2 MG/ML SYR ONE (14:43)
[2023-01-21] MEDS ORDERED: ONDANSETRON 4 MG/2 ML VIAL ONE (14:43)
[2023-01-21] MEDS ORDERED: POTASSIUM CL SA 10 MEQ TAB PO ONE (14:55)
--- NOTE | 2023-01-21 16:03 | RAD REPORT ---
EXAM DESCRIPTION: CT - Stone Protocol - 01/21/2023 3:37 pm CLINICAL HISTORY: FLANK PAIN COMPARISON: Abdomen Pelvis W Contrast dated 10/06/2022; Stone Protocol dated 08/06/2021; Stone Protoco l dated 01/02/2021; Stone Protocol dated 09/03/2020 TECHNIQUE: Thin cut axial CT imaging of the abdomen and pelvis was performed without IV contrast. Mu ltiplanar reformats were generated and reviewed. All CT scans are performed using dose optimization technique as appropriate and may include automated exposure control or mA/KV adjustment according to patient size. FINDINGS: No suspicious findings in the lung bases. The liver, spleen, and pancreas show no suspicious findings. Cholelithiasis. Peritoneal shunt catheter in place. Symmetric renal contour, without suspicious parenchymal findings within limits of noncontrast techniq ue. No hydroureteronephrosis. Left lower renal pole 6 millimeter calculus. No dilated bowel loops or bowel wall thickening. Anastomotic suture line along small bowel in the ant erior lower abdomen. No free air, free fluid or inflammatory stranding. No hernia, mass or bulky lymp hadenopathy. The urinary bladder demonstrates wall prominent trabeculation, could relate to sequelae of along outlet obstruction or neurogenic bladder. No suspicious bony findings. Severe levoconvex scoliosis at the thoracolumbar junction which somewhat limits evaluation. IMPRESSION: Left lower renal pole 6 millimeter nonobstructing calculus. No hydroureteronephrosis. Other incidental findings as above.
[2023-01-21 16:12] LABS: Protime INR 0.98
--- NOTE | 2023-01-21 16:23 | EDPHYS ---
Physician Documentation [facility] Name: Shari Estrella Age: 32 yrs Sex: Female : 1990 Arrival Date: 01/21/2023 Time: 12:26 Bed 15 Private MD: ED Physician Malachi Ferreira HPI: 01/21 13:43 This 32 yrs old Female presents to ER via EMS with complaints of Urinary Problem. kb 13:43 The patient presents with flank pain, on the right. Onset: The symptoms/episode kb began/occurred 3 day(s) ago. Modifying factors: The symptoms are alleviated by nothing, the symptoms are aggravated by nothing. Associated signs and symptoms: Pertinent positives: fever, flank pain. Severity of symptoms: At their worst the symptoms were moderate, in the emergency department the symptoms are unchanged. 13:43 The patient has experienced similar episodes in the past. The patient has been recently kb seen by a physician:. 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 - Social history:: Smoking status: Patient denies any tobacco usage or history of. ROS: 13:39 Abdomen/GI: Negative for abdominal pain, nausea, vomiting, diarrhea, and constipation. kb 13:39 Constitutional: Positive for fever. 13:39 Back: Positive for flank pain, on the right. 13:39 All other systems are negative. Exam: 13:14 ECG was reviewed by the Attending Physician. kb 13:39 Constitutional: This is a well developed, well nourished patient who is awake, alert, kb and in no acute distress. Head/Face: Normocephalic, atraumatic. ENT: Moist Mucous membranes Cardiovascular: Regular rate and rhythm with a normal S1 and S2. No gallops, murmurs, or rubs. No pulse deficits. Respiratory: Respirations even and unlabored. No increased work of breathing. Talking in full sentences Abdomen/GI: Soft, non-tender. No distention Back: No spinal tenderness. No costovertebral tenderness. Full range of motion. Skin: Warm, dry with normal turgor. Normal color. 13:39 Neuro: Exam negative for acute changes. Vital Signs: 12:42 BP 120 / 106; Pulse 95; Resp 18; Pulse Ox 97% on R/A; Weight 33.57 kg; Pain 8/10; sg5 14:11 BP 110 / 72; Pulse 80; Resp 18; Pulse Ox 100% on R/A; Pain 8/10; sg5 14:55 BP 112 / 78; Pulse 78; Resp 16; Pulse Ox 100% on R/A; Pain 5/10; sg5 15:46 BP 117 / 75; Pulse 76; Resp 16; Pulse Ox 99% on R/A; sg5 12:42 Pain Scale: Adult sg5 14:11 Pain Scale: Adult sg5 14:55 Pain Scale: Adult sg5 MDM: 12:31 Patient medically screened. kb 13:41 Differential diagnosis: kidney stone, pyelonephritis, sepsis urinary tract infection. kb Data reviewed: vital signs, nurses notes. Historians other than the Patient: EMS: [facility]. 16:21 Counseling: I had a detailed discussion with the patient and/or guardian regarding: the kb historical points, exam findings, and any diagnostic results supporting the discharge/admit diagnosis, lab results, radiology results, the need for outpatient follow up, a family practitioner, to return to the emergency department if symptoms worsen or persist or if there are any questions or concerns that arise at home. 01/21 12:33 Order name: Urinalysis w/ reflexes; Complete Time: 13:34 kb 01/21 12:33 Order name: Test, Urine; Complete Time: 13:34 kb 01/21 12:33 Order name: Blood Culture Adult (2) kb 01/21 12:33 Order name: CBC with Diff; Complete Time: 14:14 kb 01/21 12:33 Order name: CMP; Complete Time: 14:33 kb 01/21 12:33 Order name: Lactate w/ 2H reflex if indic.; Complete Time: 14:33 kb 01/21 12:33 Order name: Protime (+inr); Complete Time: 16:21 kb 01/21 12:33 Order name: Ptt, Activated; Complete Time: 16:21 kb 01/21 13:02 Order name: Glucose, Ancillary Testing; Complete Time: 13:04 EDMS 01/21 15:19 Order name: CT Stone Protocol; Complete Time: 16:21 kb 01/21 12:33 Order name: EKG; Complete Time: 13:07 kb 01/21 12:33 Order name: Accucheck kb 01/21 12:33 Order name: Cardiac monitoring; Complete Time: 13:03 kb 01/21 12:33 Order name: EKG - Nurse/Tech; Complete Time: 12:36 kb 01/21 12:33 Order name: IV Saline Lock - Large Bore kb 01/21 12:33 Order name: Labs collected and sent; Complete Time: 14:41 kb 01/21 12:33 Order name: O2 Per Protocol; Complete Time: 13:03 kb 01/21 12:33 Order name: O2 Sat Monitoring; Complete Time: 13:03 kb 01/21 12:33 Order name: Vital Signs kb EC:14 Rate is 97 beats/min. Rhythm is regular. QRS [place] is Normal. CO interval is normal at kb 114 msec. QRS interval is normal at 78 msec. QT interval is normal at 429 msec. Administered Medications: 14:40 Drug: morphine IVP or IV 2 mg Route: IVP; Infused Over: 4 mins; Site: Port-a-cath; sg5 14:41 Drug: Ondansetron IVP 4 mg Route: IVP; Site: Port-a-cath; sg5 14:48 Drug: Potassium Chloride PO 40 mEq Route: PO; sg5 16:57 Drug: HEParin Flush IVP 500 units Route: IVP; Site: Port-a-cath; Disposition Summary: 01/21/23 16:22 Discharge Ordered Location: Home kb Condition: Stable kb Diagnosis - Hypokalemia kb - Flank pain kb Followup: kb - With: Emergency Department - When: As needed - Reason: Worsening of condition Followup: kb - With: Private Physician - When: 2 - 3 days - Reason: Recheck today's complaints, Continuance of care, Re-evaluation by your physician Discharge Instructions: - Discharge Summary Sheet kb - Flank Pain, Adult, Riax-ab-Krim kb - Hypokalemia kb Forms: - Medication Reconciliation Form kb - Thank You Letter kb - Antibiotic Education kb - Prescription Opioid Use kb Signatures: Dispatcher [employer] Mirella Warner, PAPER REWINDER OPERATOR-C PAPER REWINDER OPERATOR-Laury Mayo, RN RN ss Mckenzie Kramer RN RN sg5
--- NOTE | 2023-01-21 16:23 | ER ---
Nurse's Notes [facility] Name: Shari Estrella Age: 32 yrs Sex: Female : 1990 Arrival Date: 01/21/2023 Time: 12:26 Bed 15 Private MD: Diagnosis: Hypokalemia;Flank pain Presentation: 01/21 12:42 Chief complaint: Patient states: bilateral flank pain. Coronavirus screen: At this sg5 time, the client does not indicate any symptoms associated with coronavirus-19. Ebola Screen: No symptoms or risks identified at this time. Initial Sepsis Screen: Does the patient meet any 2 criteria? No. Patient's initial sepsis screen is negative. Does the patient have a suspected source of infection? No. Patient's initial sepsis screen is negative. Risk Assessment: Do you want to hurt yourself or someone else? Patient reports no desire to harm self or others. Onset of symptoms was January 21, 2023. 12:42 Method Of Arrival: EMS: [facility] sg5 12:42 Acuity: SAMAN 3 sg5 Triage Assessment: 12:43 General: Appears in no apparent distress. comfortable, Behavior is calm, cooperative, sg5 appropriate for age. Pain: Complains of pain in bilateral flanks. 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 - Social history:: Smoking status: Patient denies any tobacco usage or history of. Screenin:45 [facility] ED Fall Risk Assessment (Adult) History of falling in the last 3 months, sg5 including since admission No falls in past 3 months (0 pts). Abuse screen: Denies threats or abuse. Nutritional screening: No deficits noted. Tuberculosis screening: No symptoms or risk factors identified. Assessment: 12:45 General: Appears in no apparent distress. comfortable, Behavior is calm, cooperative, sg5 appropriate for age. Pain: Complains of pain in bilateral flanks. Neuro: Level of Consciousness is awake, alert, obeys commands, Oriented to person, place, time, situation, Appropriate for age. Cardiovascular: Capillary refill < 3 seconds Patient's skin is warm and dry. Respiratory: Airway is patent Respiratory effort is even, unlabored. GI: No signs and/or symptoms were reported involving the gastrointestinal system. : Reports bilateral flank pain. EENT: No signs and/or symptoms were reported regarding the EENT system. Derm: No signs and/or symptoms reported regarding the dermatologic system. Musculoskeletal: No signs and/or symptoms reported regarding the musculoskeletal system. Vital Signs: 12:42 BP 120 / 106; Pulse 95; Resp 18; Pulse Ox 97% on R/A; Weight 33.57 kg; Pain 8/10; sg5 14:11 BP 110 / 72; Pulse 80; Resp 18; Pulse Ox 100% on R/A; Pain 8/10; sg5 14:55 BP 112 / 78; Pulse 78; Resp 16; Pulse Ox 100% on R/A; Pain 5/10; sg5 15:46 BP 117 / 75; Pulse 76; Resp 16; Pulse Ox 99% on R/A; sg5 12:42 Pain Scale: Adult sg5 14:11 Pain Scale: Adult sg5 14:55 Pain Scale: Adult sg5 ED Course: 12:30 Patient arrived in ED. kj1 12:31 Mirella Virk FNP-C is [facility] kb 12:31 Malachi Ferreira MD is Attending Physician. kb 12:36 EKG done, by ED staff, reviewed by Mirella ROYAL. mm9 12:36 Patient has correct armband on for positive identification. Bed in low position. Call mm9 light in reach. Side rails up X2. Warm blanket given. Client placed on continuous cardiac and pulse oximetry monitoring. NIBP monitoring applied. playground monitor on. Pulse ox on. NIBP on. 12:41 Mckenzie Kramer, RN is Primary Nurse. sg5 12:43 Triage completed. sg5 12:43 Arm band placed on right wrist. sg5 13:21 Test, Urine Sent. mm9 13:21 Urinalysis w/ reflexes Sent. mm9 14:13 Accessed Port-a-Cath. using accessed w/ # 20 Recio needle, ,sterile technique, per hospital protocol. Clean \T\ dry. Dressing intact. Good blood return. Flushes easily. 15:39 CT Stone Protocol In Process Unspecified. EDMS 16:58 No provider procedures requiring assistance completed. IV discontinued, intact, ss bleeding controlled, No redness/swelling at site. Administered Medications: 14:40 Drug: morphine IVP or IV 2 mg Route: IVP; Infused Over: 4 mins; Site: Port-a-cath; sg5 14:41 Drug: Ondansetron IVP 4 mg Route: IVP; Site: Port-a-cath; sg5 14:48 Drug: Potassium Chloride PO 40 mEq Route: PO; sg5 16:57 Drug: HEParin Flush IVP 500 units Route: IVP; Site: Port-a-cath; Medication: 17:06 VIS not applicable for this client. sg5 Outcome: 16:22 Discharge ordered by . kb 16:58 Condition: good ss 17:05 Discharged to home via wheelchair, with family. sg5 17:05 Discharge instructions given to patient, Instructed on discharge instructions, follow up and referral plans. 17:11 Patient left the ED. sg5 Signatures: Dispatcher [employer] EDCO Mirella Virk, EP SPECIALIST-C EP SPECIALIST-Laury Mayo, CHATA RN Linda Virk1 Pamela Kilgore mmMckenzie Rosales RN RN sg5
[2023-01-21] MEDS ORDERED: HEPARIN 500 UNIT/5 ML SYR IV ONE (16:58)
[2023-01-21 17:21] VITALS: BP 117/75; O2SAT 99
== END 2023-01-21 17:11 | disposition home or self-care (01) ==
LOC: ER 12:26
DX: E87.6 Hypokalemia (principal); I10 Essential (primary) hypertension; Z88.2 Allergy status to sulfonamides; Z88.5 Allergy status to narcotic agent; Z91.040 Latex allergy status; Z91.048 Other nonmedicinal substance allergy status
CPT/HCPCS: 87040; 85025; 81001; 36415; 81025; 85610; 82947; 83605; 85730; 80053; 76377; 74176; 96375; 96374; 99285; J2270; J1642; J2405; 93005

== ENCOUNTER 2023-02-21 08:11 | Emergency (ER) | payer OTHER ==
--- OUTSIDE RECORDS SUMMARY | 2023-02-21 08:16 | XMS REPORT | Continuity of Care Document ---
:[address] [facility] t Address [address] [place] [address] Care Team Providers Name Role Phone PCP, PATIENT DOES NOT HAVE A Primary Care Physician Unavaila ble Doctor Unassigned, [place] Attending Clinician Unavailable SONJA HASKINS Attending Clinician Unavailable Yeni De Jesus Attending Clinician Sonja Haskins MD Attending Clinician ERASMO Attending Clinician Unavailable Shirley Jean MD Attending Clinician Pob, Adc Lab Main Attending Clinician Unavailable SCARLET HOSKINS Attending Clinician Unavailable SHIRLEY JEAN Attending Clinician Unavailable SONJA HASKINS Admitting Clinician Unavailable Sonja Haskins MD Admitting Clinician ERASMO Admitting Clinician Unavailable [...] stage 4 Branch Nexplanon Nexplanon Disease Active [address] in place 8-20 ity of 00:00: [place] 00 Medical Branch 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 [place] [...] [place] e level 00 Medical Branch Hyperprola Hyperprola Disease Active 2017-08 U lucina ctinemia ctinemia 1-02 ity of 00:00: [place] 00 Medical [...] of 00:00: [place] 00 Medical Branch 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 spina bifida s/p augmentat ion cystoplas ty and catheteri zable channel by Dr. Spicer at [facility] as a ch Scoliosis Scoliosis Disease Active 2017-08 Uni vers 0-24 ity of 00:00: Medical Branch Rh Rh Disease Active Overview: Univer s negative negative 6-18 Formattin ity of state in state in 00:00: g of this [place] as antepartum antepartum 00 note Me dical period period might be Branch different from the original. Rhogam at 28 weeks Rubella Rubella Disease Active Overview: Univ ers non-immune non-immune 6-18 Formattin ity of status, status, 00:00: g of this [place] antepartum antepartum 00 note Me dical might be Branch different from the original. Address pp History of History of Disease Active U nivers miscarriag miscarriag 6-15 it y of e e 00:00: [place] Medical [facility] Wheelchair Wheelchair Disease Active U [...] ity of adverse 00:00: [place] reaction 00 [facility] Branch VANCOMYC DRUG Active ITCHING Univers IN [...] reaction 00 Medica l ics) s Branch LATEX DRUG Active High Rash Univers INGREDI [...] Start Date Stop Date Quantity Comments Source Exposure to 2022-03-15 2022-03-25 Not sure [facility] SARS-CoV-2 00:00:00 18:16:00 [facility] (event) [place] Tobacco use and 2022-03-25 2022-03-25 Smokeless tobacco Un iversity of exposure 00:00:00 00:00:00 non-user [facility] Alcohol intake 2022-03-25 2022-03-25 Current University of 00:00:00 00:00:00 non-drinker of [facility] alcohol (finding) [place] Sex Assigned At [address] [facility] 00:00:00 [facility]00 [facility] Smoking Status Start Date Stop Date Source Never smoked tobacco [facility] Medications Ordered Filled Start Stop Current Ordering Indication Dosage Frequency Signature Comments Components Source Medication Medication Date Date Medication? Clinician (SIG) Name Name atenoloL Yes 100mg Take 100 Univ ers 100 mg 8-25 mg by ity of tablet 00:33: mouth in [place] the Medical morning. Branch atenoloL Yes 100mg Take 100 Univ ers 100 mg 8-25 mg by ity of tablet 00:33: mouth in [place] the Medical morning. Branch heparin 300U 300 Units, Uni vers lock flush 03-28 IV Push, ity of (HEPARIN 18:30: 17:24 ONCE, 1 [place] LOCKFLUSH(P 00 :00 dose, On Medi jose ORCINE)(PF) Helga [place] ) 100 03/28/22 at unit/mL 1330, injection Routine 300 Units diphenhydrA 0 Yes 50mg Take 50 mg Univers MINE 25 mg 8-23 by mouth ity o f capsule 12:34: at bedtime [place] 05 as needed Medical for Branch Allergies. oxyCODONE-a 0 Yes 1{tbl} Take 1 Un vamsi cetaminophe 8-23 tablet by ity of n 10-325 mg 12:34: mouth [place] per tablet 05 every 6 Medica l (six) Branch hours as needed for Pain. dicyclomine 0 Yes 10mg Take 10 mg Univers 10 [...] as needed Medical for Branch Allergies. oxyCODONE-a 0 Yes 1{tbl} Take 1 Un vamsi cetaminophe 8-23 tablet by ity of n 10-325 mg 12:34: mouth [place] per tablet 05 every 6 Medica l (six) Branch hours as needed for Pain. dicyclomine 2021-0 Yes 10mg Take 10 mg Univers 10 mg 8-23 by mouth 4 ity of capsule 12:34: (four) [place] 05 times Medical daily. Branch diphenhydrA 2021-0 Yes 50mg Take 50 mg Univers MINE 25 mg 8-23 by mouth ity o f capsule 12:34: at bedtime [place] 05 as needed Medical for Branch Allergies. oxyCODONE-a 2021-0 Yes 1{tbl} Take 1 Un vamsi cetaminophe 8-23 tablet by ity of n 10-325 mg 12:34: mouth [place] per tablet 05 every 6 Medica l (six) Branch hours as needed for Pain. dicyclomine Yes 10mg Take 10 mg Univers 10 mg 03-28 by mouth 4 ity of capsule 12:34: (four) [place] 05 times Medical daily. Branch cefUROXime 2021- No [id number] 500mg Take 1 Univers 500 mg 03-28 tablet by ity of tablet 00:00: 04:59 mouth in [place] 00 :00 the Medical morning Branch and 1 tablet in the evening. Do all this for 7 days. magnesium 2021- No 2g 2 g, IV Univ ers sulfate in 03-26 Piggyback, it y of water 2 17:45: 20:17 Administer [place] as gram/50 mL 00 :00 over 60 Medica l (4 %) Minutes, Branch infusion 2 ONCE NOW, g 1 dose, On [employer] 03/26/22 at 1245, Routine enoxaparin Yes 40mg 40 mg, Unive rs (LOVENOX) 03-26 Subcutaneo ity of injection 14:00: [place], [place]ILY, [place] 40 mg 00 First dose Medical on [facility] 03/26/22 at 0900, Until Discontinu ed, Routine atenoloL Yes 100mg 100 mg, Unive rs (TENORMIN) 03-26 Oral, ity of tablet 100 14:00: DAILY, [place] mg 00 First dose Medical on [facility] 03/26/22 at 0900, Until Discontinu ed, Routine KCL No 40meq 40 mEq, Univers (KLOR-CON 03-26 Oral, ity of M20) tablet 13:30: 13:32 ONCE, 1 [place] 40 mEq 00 :00 dose, On [facility] 03/26/22 at 0830, Routine dicyclomine Yes 10mg 10 mg, Univ ers (BENTYL) 03-26 Oral, QID, ity o f capsule 10 13:00: First dose [place] mg 00 on [facility] 03/26/22 at [place] 0800, Until Discontinu ed, Routine potassium 2021- No 10meq 10 mEq, IV Univers chloride in 03-26 Piggyback, i ty of water 10 13:00: 15:42 Q1H, 2 [place] mEq/100 mL 00 :00 doses, Medical RTU 10 mEq First dose Bra nch on [employer] 03/26/22 at 0800, Last dose on [employer] 03/26/22 at 0900, Administer over 60 Minutes, 100 mL meropenem 2021- No 1000mg 1,000 mg, Univers (MERREM) 03-26 0828 IV ity of 1,000 mg in 09:00: 08:59 Piggyback, [place] NaCl 0.9% 00 :00 Q8H ABX, Medica l (NS) 50 mL 21 doses, Bran ch MINI-BAG First dose on [employer] 03/26/22 at 0400, [facility] dose on [facility] 04/01/22 at 2000, Administer over 30 Minutes, 50 mL
Rest ricted use approved by: After Hours (for ADC, CLC, LCC ONLY)
R pj for Anti-Infec tive: Documented Infection< br>Documen carlos Infection Site: Urine
D uration of Therapy: 7 days KCL 2021- No 40meq 40 mEq, Univers (KLOR-CON 03-26 Oral, ity of M20) tablet 06:00: 09:37 ONCE, 1 [place] 40 mEq 00 :00 dose, On Medical [facility] 03/26/22 at 0100, Routine ondansetron Yes 4mg 4 mg, Slow Univers (ZOFRAN 03-26 IV Push, ity of (PF)) 02:43: Q6HPRN, [place] injection 4 03 Starting Medi jose mg on [facility] 03/25/22 at 2143, Until Discontinu ed, Routine, Nausea and Vomiting (N/V) acetaminoph Yes 650mg 650 mg, Un vamsi en 03-26 Oral, ity of (TYLENOL) 02:42: Q6HPRN [place] tablet 650 55 Starting Medic al mg on [facility] 03/25/22 at 2142, Until Discontinu ed, Routine, Pain (scale 1-3) oxyCODONE-a Yes 1{tbl} 1 tablet, Univers cetaminophe 03-26 Oral, ity of n 02:41: Q6HPRN [place] (PERCOCET) 13 Starting Medic al 5-325 mg on Sat Branch per tablet 03/25/22 at 1 tablet 2140, Until Discontinu ed, Pain (scale 7-10) diphenhydrA Yes 50mg 50 mg, Univ ers MINE 03-26 Oral, ity of (BENADRYL) 02:40: QHSPRN, [place] tablet 50 20 Starting Medica l mg on Sat Branch 03/25/22 at 2140, Until Discontinu ed, Routine, Congestion /Allergies , Sleep meropenem 2021- No 1000mg 1,000 mg, Univers (MERREM) 03-26 IV ity of 1,000 mg in 01:45: 01:13 Piggyback, [place] NaCl 0.9% 00 :00 ONCE, 1 Medical (NS) 50 mL dose, On Branc h MINI-BAG 03/25/22 at 204, Administer over 30 Minutes, 50 mL
Rest [...] Medical Sat Branch 03/25/22 at 1845, STAT ondansetron 2019-0 Yes Univer s 4 mg tablet 08-07 ity of 00:00: [place] [facility] ondansetron 2020-0 Yes Univer s 4 mg tablet 08-07 ity of 00:00: [place] [facility] ondansetron 2020-0 Yes Univer s 4 mg tablet 08-07 ity of 00:00: [place] [facility] labetalol Yes [id number] 200mg Take 1 U nivers 200 mg 9-16 tablet by ity of tablet 00:00: mouth 2 [place] (two) Medical times Branch daily. labetalol Yes [id number] 200mg Take 1 U nivers 200 mg 9-16 tablet by ity of tablet 00:00: mouth 2 [place] (two) Medical times Branch daily. labetalol Yes [id number] 200mg Take 1 U nivers 200 mg 9-16 tablet by ity of tablet 00:00: mouth 2 [place] (two) Medical times Branch daily. Immunizations Ordered Filled Immunization Date Status Comments [facility] e Immunization Name Name [facility] 2019-02-08 Completed University of 00:00:[address] [facility] 2019-02-08 Completed University of 00:00:[address] [facility] 2019-02-08 Completed University of 00:00:00 [facility] TDAP 2019-01-30 Completed University of 00:00:00 [facility] TDAP 2019-01-30 Completed University of 00:00:00 [facility] TDAP 2019-01-30 Completed University of 00:00:00 [facility] HPV9 2017-02-15 Completed University of 00:00:00 [facility] HPV9 2017-02-15 Completed University of 00:00:00 [facility] HPV9 2017-02-15 Completed University of 00:00:00 [facility] Vital Signs Vital Name Observation Time Observation Value Comments Source Systolic blood 2022-03-28 16:21:00 107 mm[Hg] Univer sity of pressure [facility] Diastolic blood 2022-03-28 16:21:00 55 mm[Hg] Unive rsity of pressure [facility] Heart rate 2022-03-28 16:21:00 63 /min [facility] Body temperature 2022-03-28 16:21:00 36.22 Pati [facility] Respiratory rate 2022-03-28 16:21:00 18 /min [facility] Oxygen saturation in 2022-03-28 16:21:00 100 /min [facility] blood by [facility] Pulse oximetry Branch Body weight 2022-03-28 08:50:00 32.977 kg [facility] BMI 2022-03-28 08:50:00 22.18 kg/m2 [facility] Procedures Procedure Date / Time Performing Clinician Source Performed HOME HEALTH - OTHER 2022-09-21 06:01:00 Doctor Unassigned, [facility] Name Medical [place] PHYSICIAN ORDERS 2022-06-22 06:01:00 Doctor Unassigned, [facility] [place] [facility] [place] MAGNESIUM 2022-03-28 08:55:00 Negrito Olivo [facility] BASIC METABOLIC PANEL 2022-03-28 08:55:00 Negrito Olivo [facility] (NA, K, CL, CO2, GLUCOSE, Medica l Branch BUN, CREATININE, CA) BASIC METABOLIC PANEL 2022-03-27 09:09:00 Abdulaziz Cabrera [facility] (NA, K, CL, CO2, GLUCOSE, Medica l Branch BUN, CREATININE, CA) CBC WITH DIFF 2022-03-27 09:09:[address] [facility] 2022-03-26 19:21:00 Negrito Olivo [facility] PHOSPHORUS 2022-03-26 10:11:00 Negrito Olivo [facility] MAGNESIUM 2022-03-26 10:11:00 Negrito Olivo [facility] COMP. METABOLIC PANEL 2022-03-26 10:11:00 Sneha [facility] ([id number]) Medical [place] CBC WITH DIFF 2022-03-26 10:11:00 Sneha [facility] POCT TEST 2022-03-26 00:46:00 Yeni Lockett [facility] COMP. METABOLIC PANEL 2022-03-25 23:54:00 Yeni Lockett [facility] ([id number]) Medical Branch CBC WITH DIFF 2022-03-25 23:54:00 Yeni Lockett [facility] URINALYSIS 2022-03-25 23:54:00 Yeni Lockett [facility] URINE CULTURE 2022-03-25 23:54:00 Yeni Lockett [facility] COVID-19 (ID NOW RAPID 2022-03-25 23:54:00 Yeni Lockett [facility] TESTING) Medical Branch LAB ONLY COVID 2022-03-25 23:54:00 Yeni Lockett [facility] INTERPRETATION [facility] Encounters Start End Encounter Admission Attending Care Care Encounter Source Date/Time Date/Time Type Type Clinicians Facility Department ID 2022-09-21 2022-09-21 Orders Doctor HURST 1.2.840.114 [id number] Univers 00:00:00 00:00:00 Only Unassigned, JESSICA [id number] ity of [place] [facility] 4.2.7.2.686 [place] as [phone] [address] 2022-06-22 2022-06-22 Orders Doctor NATALI 1.2.840.114 [id number] Univers 00:00:00 00:00:00 Only Unassigned, JESSICA [id number] ity of [place] [facility] 4.2.7.2.686 [place] as [phone] [address] 2022-03-25 2022-03-28 Outpatient X SNEHA [facility] [id number] Univers 18:14:00 12:33:00 SONJA monson [facility] 2022-03-25 2022-03-28 Emergency Yeni Lockett [facility] 1.2.840. 114 [id number] Univers 18:14:00 12:33:00 Sonja Haskins [id number] ity [facility] 4.2.7.2.686 [id number] [address] 2022-02-15 2022-02-15 Outpatient [facility] [id number] [place] 05:40:00 05:40:00 OZ 0713 [facility] 2021-01-10 2021-01-10 Outpatient [facility] [id number] Univers 00:00:00 00:00:00 [facility] 2020-11-17 2020-11-17 Orders Doctor NATALI 1.2.840.114 [id number] 00:00:00 00:00:00 Only Unassigned, JESSICA [id number] [place] [facility] 4.2.7.2.686 [id number] [id number] 2020-11-08 2020-11-08 Outpatient [facility] [id number] Univers 00:00:00 00:00:00 [facility] 2020-11-08 2020-11-08 Orders Doctor HURST 1.2.840.114 [id number] 00:00:00 00:00:00 Only Unassigned, JESSICA [id number] [place] [facility] 4.2.7.2.686 [id number] [id number] 2020-10-11 2020-10-11 Telephone Cl [facility] 1.2.840.114 [id number] 00:00:00 00:00:00 [facility] [id number] [place] 4.2.7.2.686 Professio [phone] nal [address] One 2020-10-10 2020-10-10 Orders Doctor HURST 1.2.840.114 [id number] 00:00:00 00:00:00 Only Unassigned, JESSICA 350.1.13.10 [place] [facility] 4.2.7.2.686 [id number] [id number] 2020-09-17 2020-09-17 Funeral Limousine Driver Erika Adams [facility] 1.2.840.114 [id number] 16:26:39 16:41:39 Visit Lab Main [place] 350.1.13.10 [place] 4.2.7.2.686 Professio [id number] [address] 2020-09-17 2020-09-17 Outpatient Patrick HOSKINS [facility] [id number] Univers 16:30:00 16:30:00 SCARLET [facility] 2020-09-17 2020-09-17 Orders Doctor HURST 1.2.840.114 [id number] 00:00:00 00:00:00 Only Unassigned, JESSICA 350.1.13.10 [place] [facility] 4.2.7.2.686 [id number] [id number] 2020-07-05 2020-07-05 [id number] Univers 14:30:00 14:30:00 [facility] 2020-07-05 2020-07-05 Funeral Limousine Driver Erika Adams [facility] 1.2.840.114 [id number] 14:05:50 14:20:50 Visit Lab Main Fine 350.1.13.10 [place] 4.2.7.2.686 J[address] [id number] [address] 2020-07-05 2020-07-05 Orders Doctor HURST 1.2.840.114 [id number] 00:00:00 00:00:00 Only Unassigned, JESSICA 350.1.13.10 [place] [facility] 4.2.7.2.686 [id number] [id number] 2020-05-17 2020-05-17 Orders Doctor HURST 1.2.840.114 [id number] 00:00:00 00:00:00 Only Unassigned, JESSICA 350.1.13.10 [place] [facility] 4.2.7.2.686 [id number] 009 2020-03-18 2020-03-18 Orders Doctor HURST 1.2.840.114 [id number] 00:00:00 00:00:00 Only Unassigned, JESSICA 350.1.13.10 [place] [facility] 4.2.7.2.686 [id number] 009 2020-03-09 2020-03-09 Orders Doctor NATALI Reina.2.840.114 [id number] 00:00:00 00:00:00 Only Unassigned, JESSICA 350.1.13.10 [place] [facility] 4.2.7.2.686 [id number] 009 2020-01-05 2020-01-05 Orders Doctor NATALI 1.2.840.114 [id number] 00:00:00 00:00:00 Only Unassigned, JESSICA 350.1.13.10 [place] [facility] 4.2.7.2.686 [id number] [id number] 2019-12-18 2019-12-18 Telephone ClRUST 1.2.840.114 [id number] 00:00:00 00:00:00 [place]iful A Fine 350.1.13.10 [place] 4.2.7.2.[address] Professio [id number] 2019-12-16 2019-12-16 Telephone [facility] 1.2.840.114 [id number] 00:00:00 00:00:00 Wondiful A Fine 350.1.13.10 [place] 4.2.7.2.686 Professio [id number] [address] 2019-12-09 2019-12-09 Orders Doctor HURST 1.2.840.114 [id number] 00:00:00 00:00:00 Only Unassigned, JESSICA 350.1.13.10 [place] [facility] 4.2.7.2.686 [id number] 2019-11-24 2019-11-24 Telephone [facility] 1.2.840.114 [id number] 00:00:00 00:00:00 Wondiful A Fine 350.1.13.10 [place] 4.2.7.2.686 Professio [id number] [address] 2019-11-24 2019-11-24 Orders Doctor NATALI 1.2.840.114 [id number] 00:00:00 00:00:00 Only Unassigned, JESSICA 350.1.13.10 [place] [facility] 4.2.7.2.686 [id number] 009 2019-11-07 2019-11-07 Orders Doctor NATALI 1.2.840.114 [id number] 00:00:00 00:00:00 Only Unassigned, JESSICA 350.1.13.10 [place] [facility] 4.2.7.2.686 [id number] 009 2019-11-05 2019-11-05 Telephone [facility] 1.2.840.114 [id number] 00:00:00 00:00:00 [place]ondiful A Fine 350.1.13.10 [place] 4.2.7.2.686 Professio [id number] [address] 2019-10-30 2019-10-30 [place] [facility] 1.2.840.114 [id number] 00:00:00 00:00:00 [facility] 350.1.13.10 [place] 4.2.7.2.686 Professio [phone] [place] [address] Office Building [facility] 2019-10-30 2019-10-30 Orders Doctor NATALI 1.2.840.114 [id number] 00:00:00 00:00:00 Only Unassigned, JESSICA 350.1.13.10 [place] [facility] 4.2.7.2.686 [id number] 009 2019-10-22 2019-10-22 [facility] 1.2.840.114 [id number] 00:00:00 00:00:00 [facility] 350.1.13.10 [place] 4.2.7.2.686 Professio [phone] [place] [address] Office [facility] 2019-10-20 2019-10-20 [place] Cl[facility] 1.2.840.114 [id number] 00:00:00 00:00:00 [facility] 350.1.13.10 [place] 4.2.7.2.686 Professio [phone] [place] [address] Office Building [facility] 2019-10-15 2019-10-15 [place] Cl[facility] 1.2.840.114 [id number] 00:00:00 00:00:00 [facility] 350.1.13.10 [place] 4.2.7.2.686 Professio [phone] [place] [address] Office Building [facility] 2019-10-08 2019-10-08 [place] ClRUST 1.2.840.114 [id number] 00:00:00 00:00:00 [facility] 350.1.13.10 [place] 4.2.7.2.686 [phone] nal 0[address] One 2019-08-15 2019-08-15 Outpatient Patrick JEAN [facility] [id number] Univers 15:00:00 15:09:49 WONDIFUL ity o f [facility] 2019-05-15 2019-05-15 Outpatient Patrick JEAN [facility] [id number] Univers 15:00:00 15:59:45 [place] ity o f [facility] 2019-04-21 2019-04-21 Outpatient Patrick JEAN [facility] [id number] Univers 16:30:00 16:55:27 [facility]UL [facility] Results Test Description Test Time Test Comments Results Result Comments Source MAGNESIUM 2022-03-28 11:10:16 Test Item Value Reference Range Interpretation Comme nts MAGNESIUM (test code = 6798264663) 1.8 mg/dL 1.7-2.4 Lab Interpretation (test code = 89435-3) Normal [facility] (NA, K, CL, CO2, GLUCOSE, BUN, CREATININE, CA)2022-03-28 11:10:15 Test Item Value Reference Range Interpretation Comments NA (test code = 136 mmol/L 135-145 1225191545) K (test code = 4.1 mmol/L 3.5-5 4181092620) CL (test code = 103 mmol/L 98-108 7222917055) CO2 TOTAL (test code = 30 mmol/L 23-31 4686532817) AGAP (test code = 2-16 7881462847) BUN (test code = 4 mg/dL 7-23 L 4323981001) GLUCOSE (test code = 100 mg/dL 70-110 3226536846) CREATININE (test code = 0.40 mg/dL 0.5-1.04 L 6612942736) CALCIUM (test code = 8.7 mg/dL 8.6-10.6 2331068679) eGFR (test code = mL/min/1.73m2 1442032050) GENARO (test code = GENARO) Association of [...] tests). Lab Interpretation Abnormal (test code = 51116-6) [facility] [id number] 19:44:05 Test Item Value Reference Range Interpretation Comments K (test code = 5333501474) 5.7 mmol/L 3.5-5 H Lab Interpretation (test code = Abnormal 32688-1) [facility] [id number] 00:46:00 Test Item Value Reference Range Interpretation Comments POCT PREG (test code = 1605) Negative On board controls acceptable with Present C Line (test code = 3574) POCT PREG LOT # (test code = 3575) [id number] POCT PREG TEST DATE (test 07/05/23 code = 3576) Lab Interpretation (test code = Normal 76344-0) [facility]. METABOLIC PANEL (47517)2022-03-26 00:22:26 Test Item Value Reference Range Interpretation Comments NA (test code = 136 mmol/L 135-145 6746007835) K (test code = 3.0 mmol/L 3.5-5 L 3461083276) CL (test code = 100 mmol/L 98-108 0846181501) CO2 TOTAL (test code = 26 mmol/L 23-31 6335211215) AGAP (test code = 2-16 9502438221) BUN (test code = 3 mg/dL 7-23 L 9947413260) GLUCOSE (test code = 100 mg/dL 70-110 0436282193) CREATININE (test code = 0.41 mg/dL 0.5-1.04 L 7878020916) TOTAL BILI (test code = 0.3 mg/dL 0.1-1.9 6247738529) CALCIUM (test code = 9.3 mg/dL 8.6-10.6 0041961217) T PROTEIN (test code = 7.3 g/dL 6.3-8.2 7745458872) ALBUMIN (test code = 4.4 g/dL 3.5-5 3717287293) ALK PHOS (test code = 143 U/L 34-122 H 6559382370) ALTv (test code = 15 U/L 5-35 1742-6) AST(SGOT) (test code = 23 U/L 13-40 4757569752) eGFR (test code = mL/min/1.73m2 9739176695) GENARO (test code = GENARO) Association of [...] tests). Lab Interpretation Abnormal (test code = 89545-5) [facility] WITH [id number] 00:09:04 Test Item Value Reference Range Interpretation [...] RDW-SD (test code = 47.4 fL 39-49.9 88710-2) RDW-CV (test code = 14.1 % 12-15.5 788-0) PLT (test code = See_Comment H [Automated 777-3) message] The sy stem which generated this result transmitted reference range : 166 - 358 10*3/ ?L. The reference r tenisha was not used to interpret this result as normal/abnormal . MPV (test code = 8.9 fL 9.5-12.9 L 08925-7) NRBC/100 WBC (test See_Comment [Automat ed code = 0922074313) message] The system which generated this result transmitted reference range : 0.0 - 10.0 /100 WBCs. The refer ence range was not u sed to interpret th is result as normal/abnormal . NRBC x10^3 (test code See_Comment [Auto mated = 7930381497) message] The s ystem which generated this result transmitted reference range : 10*3/?L. The reference range was not used to interpret this result as normal/abnormal . GRAN MAT (NEUT) % 73.0 % (test code = 770-8) IMM GRAN % (test code 0.40 % = 9515460911) LYMPH % (test code = 20.4 % 736-9) MONO % (test code = 5.4 % 5905-5) EOS % (test code = 0.4 % 713-8) BASO % (test code = 0.4 % 706-2) GRAN MAT x10^3(ANC) 9.39 10*3/uL 1.88-7.09 H (test code = 0057665966) IMM GRAN x10^3 (test 0.05 10*3/uL 0-0.06 code = 0568163761) LYMPH x10^3 (test code 2.62 10*3/uL 1.32-3.29 = 731-0) MONO x10^3 (test code 0.70 10*3/uL 0.33-0.92 = 742-7) EOS x10^3 (test code = 0.05 10*3/uL 0.03-0.39 711-2) BASO x10^3 (test code 0.05 10*3/uL 0.01-0.07 = 704-7) Lab Interpretation Abnormal (test code = 17591-4) [facility]"
[2023-02-21 09:35] LABS: Absolute Lymphocytes (CBC) 1.6 K/uL (0.7-4.9); Lymphocytes % 17.3 % (15.3-44.8); MCV 95.3 fL (80-100); MPV 7.9 fL (7.6-11.3)
[2023-02-21 09:43] LABS: Albumin 3.7 g/dL (3.4-5.0); Bilirubin Total 0.3 mg/dL (0.2-1.0); Potassium 3.5 mEq/L (3.5-5.1); Protein, Total 7.3 g/dL (6.4-8.2)
[2023-02-21 10:09] LABS: Specific Gravity > 1.030 (1.005-1.030); Urine Bilirubin NEGATIVE (Negative); Urine Blood Trace (Negative); Urine Clarity Turbid (Clear); Urine Color Yellow (Yellow); Urine Glucose Negative (Negative); Urine Protein 2+ (Negative); Urine Urobilinogen 0.2 mg/dL (0.2-1.0)
[2023-02-21 10:14] LABS: Urine Bacteria >50 /HPF (<20); Urine Mucus 2+ /HPF (None Seen)
--- NOTE | 2023-02-21 10:50 | ER ---
Nurse's Notes [facility] Name: Shari Estrella Age: 32 yrs Sex: Female : 1990 Arrival Date: 02/21/2023 Time: 08:11 Bed 20 Private MD: Diagnosis: UTI/ Urinary tract infection, site not specified Presentation: 02/21 08:17 Chief complaint: EMS states: patient brought in by EMS for UTI symptoms and back pain db with temp of 100 for EMS. pt states self caths every 4 hours. Coronavirus screen: Client denies travel out of the [place] in the last 14 days. At this time, the client does not indicate any symptoms associated with coronavirus-19. Ebola Screen: Patient negative for fever greater than or equal to 101.5 degrees Fahrenheit, and additional compatible Ebola Virus Disease symptoms Patient denies exposure to infectious person. Patient denies travel to an Ebola-affected area in the 21 days before illness onset. No symptoms or risks identified at this time. Initial Sepsis Screen: Does the patient meet any 2 criteria? Yes Does the patient have a suspected source of infection? Yes: Dysuria/Frequency/Urgency/UTI. Risk Assessment: Do you want to hurt yourself or someone else? Patient reports no desire to harm self or others. Onset of symptoms was February 19, 2023. 08:17 Method Of Arrival: EMS: [facility] db 08:17 Acuity: SAMAN 3 db Triage Assessment: 08:18 General: Appears in no apparent distress. comfortable, Behavior is calm, cooperative. db Pain: Complains of pain in back. Respiratory: Airway is patent Respiratory effort is even, unlabored, Respiratory pattern is regular, symmetrical. : Reports states feels like has UTI and complains of N/V. Musculoskeletal: Capillary refill < 3 seconds. 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 - Social history:: Smoking status: Patient denies any tobacco usage or history of. Screenin:08 [facility] ED Fall Risk Assessment (Adult) History of falling in the last 3 months, db including since admission No falls in past 3 months (0 pts) Confusion or Disorientation No (0 pts) Intoxicated or Sedated No (0 pts) Impaired Gait No (0 pts) Mobility Assist Device Used No (0 pt) Altered Elimination No (0 pt) Score/Fall Risk Level 0 - 2 = Low Risk Oriented to surroundings, Maintained a safe environment. Abuse screen: Denies threats or abuse. Denies injuries from another. Nutritional screening: No deficits noted. Tuberculosis screening: No symptoms or risk factors identified. Assessment: 09:15 Reassessment: Patient appears in no apparent distress at this time. Patient and/or db family updated on plan of care and expected duration. Pain level reassessed. Patient is alert, oriented x 3, equal unlabored respirations, skin warm/dry/pink. Patient states feeling better. General: Appears in no apparent distress. comfortable, Behavior is calm, cooperative. Neuro: Level of Consciousness is awake, alert, obeys commands, Oriented to person, place, time, situation. 09:17 Reassessment: No changes from previously documented assessment. Patient and/or family ll1 updated on plan of care and expected duration. Pain level reassessed. Patient is alert, oriented x 3, equal unlabored respirations, skin warm/dry/pink. 10:11 Reassessment: Patient appears in no apparent distress at this time. Patient and/or db family updated on plan of care and expected duration. Pain level reassessed. Patient is alert, oriented x 3, equal unlabored respirations, skin warm/dry/pink. General: Appears in no apparent distress. comfortable, Behavior is calm, cooperative. Neuro: Level of Consciousness is awake, alert, obeys commands, Oriented to person, place, time, situation. Respiratory: Airway is patent Respiratory effort is even, unlabored, Respiratory pattern is regular, symmetrical. 11:12 Reassessment: Patient appears in no apparent distress at this time. Patient and/or db family updated on plan of care and expected duration. Pain level reassessed. Patient is alert, oriented x 3, equal unlabored respirations, skin warm/dry/pink. Patient states feeling better. Patient states symptoms have improved. 11:23 Reassessment: EMS arrived for patient transport home. Questions answered. db Vital Signs: 08:17 BP 134 / 89; Pulse 83; Resp 16; Temp 99.7(O); Pulse Ox 100% ; Weight 34.02 kg; db 09:15 BP 126 / 83; Pulse 71; Resp 16; Pulse Ox 95% on R/A; db 10:00 BP 117 / 64; Pulse 71; Resp 16; Pulse Ox 100% on R/A; db 11:00 BP 125 / 84; Pulse 91; Resp 16; Pulse Ox 100% on R/A; db [place] Coma Score: 09:15 Eye Response: spontaneous(4). Motor Response: obeys commands(6). Verbal Response: db oriented(5). Total: 15. ED Course: 08:14 Patient arrived in ED. sb4 08:14 Cat Marsh PA-C is PHCP. sb4 08:14 Giovanny Myers MD is Attending Physician. sb4 08:15 Alycia Covington, CHATA is Primary Nurse. db 08:18 Triage completed. db 08:21 Arm band placed on Patient placed in an exam room. db 09:10 Accessed Port-a-Cath. using accessed w/ # 20 Recio needle, ,sterile technique, per [address] protocol. Clean \T\ dry. Dressing intact. Good blood return. Flushes easily. 09:15 Patient has correct armband on for positive identification. Bed in low position. Call db light in reach. Side rails up X2. Client placed on continuous cardiac and pulse oximetry monitoring. NIBP monitoring applied. 11:12 Provided Education on: discharge. db 11:12 No provider procedures requiring assistance completed. IV discontinued, intact, db bleeding controlled, No redness/swelling at site. Administered Medications: 10:50 Drug: Nitrofurantoin PO 100 mg Route: PO; db 11:11 Follow up: Response: No adverse reaction db 10:50 Drug: LevOfloxacin PO 500 mg Route: PO; db 11:11 Follow up: Response: No adverse reaction db 10:50 Drug: Acetaminophen PO 1000 mg Route: PO; db 11:11 Follow up: Response: No adverse reaction db Medication: 09:15 VIS not applicable for this client. db Outcome: 10:50 Discharge ordered by MD. sb4 11:12 Discharged to home via ambulance, pending ambulance db 11:12 Condition: stable 11:12 Discharge instructions given to patient, Instructed on discharge instructions, follow up and referral plans. Prescriptions given X 2. 11:23 Patient left the ED. db Signatures: Aldo Mcdonald RN RN ll1 Alycia Covington RN RN db Cat Marsh, HAYLEY HARDY sb4 Corrections: (The following items were deleted from the chart) 10:15 10:00 BP 125 / 80; Pulse 78bpm; Resp 16bpm; Pulse Ox 96% RA; db db 11:11 11:10 LevOfloxacin PO 500 mg PO db db
--- NOTE | 2023-02-21 10:51 | EDPHYS ---
Physician Documentation [facility] Name: Shari Estrella Age: 32 yrs Sex: Female : 1990 Arrival Date: 02/21/2023 Time: 08:11 Bed 20 Private MD: ED Physician Giovanny Myers HPI: 02/21 08:19 This 32 yrs old Female presents to ER via EMS with complaints of Back Pain, Urinary sb4 Problem. 08:19 32-year-old female with history of spina bifida, hypertension, and chronic UTIs sb4 presents via EMS with concerns for UTI. She straight caths 4 times a day. She says she feels like she has a UTI because she feels generally unwell like she does with previous UTIs. Reports flank pain and nausea. Denies abdominal pain, vomiting, diarrhea. Reports subjective fever. 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 - Social history:: Smoking status: Patient denies any tobacco usage or history of. ROS: 08:19 Cardiovascular: Negative for chest pain, palpitations, and edema, Respiratory: Negative sb4 for shortness of breath, cough, wheezing, and pleuritic chest pain, Abdomen/GI: Negative for abdominal pain, nausea, vomiting, diarrhea, and constipation. 08:19 Constitutional: Positive for fever, malaise. 08:19 All other systems are negative. Exam: 08:19 Constitutional: This is a well developed, well nourished patient who is awake, alert, sb4 and in no acute distress. Head/Face: Normocephalic, atraumatic. Eyes: Extra-ocular motions intact. Periorbital areas with no swelling, redness, or edema. Cardiovascular: Regular rate and rhythm with a normal S1 and S2. Respiratory: Lungs have equal breath sounds bilaterally, clear to auscultation and percussion. No rales, rhonchi or wheezes noted. No increased work of breathing, no retractions or nasal flaring. Abdomen/GI: Soft, non-tender, no distension. Skin: Warm, dry with normal turgor. Normal color with no rashes, no lesions, and no evidence of cellulitis. 08:19 Neuro: Exam negative for acute changes, confusion, dizziness. Vital Signs: 08:17 BP 134 / 89; Pulse 83; Resp 16; Temp 99.7(O); Pulse Ox 100% ; Weight 34.02 kg; db 09:15 BP 126 / 83; Pulse 71; Resp 16; Pulse Ox 95% on R/A; db 10:00 BP 117 / 64; Pulse 71; Resp 16; Pulse Ox 100% on R/A; db 11:00 BP 125 / 84; Pulse 91; Resp 16; Pulse Ox 100% on R/A; db [place] Coma Score: 09:15 Eye Response: spontaneous(4). Motor Response: obeys commands(6). Verbal Response: db oriented(5). Total: 15. MDM: 08:14 Patient medically screened. sb4 08:19 Differential diagnosis: UTI, pyelonephritis, nephrolithiasis, sepsis, covid, flu. sb4 10:47 Data reviewed: vital signs, nurses notes, old medical records, prior urine culture and sb4 sensitivities from [facility] lab test result(s), I have discussed the patient's presentation/case with the attending Emergency Department Physician; and as a result, I will discharge patient, administer antibiotics. Consideration of Admission/Observation Escalation of care including admission/observation considered. Test considered but Not performed: CT: stable vitals, no abdominal pain. Care significantly affected by the following chronic conditions: spina bifida. Counseling: I had a detailed discussion with the patient and/or guardian regarding: the historical points, exam findings, and any diagnostic results supporting the discharge/admit diagnosis, lab results, to return to the emergency department if symptoms worsen or persist or if there are any questions or concerns that arise at home. ED course: Urine culture from prior admission grew Enterococcus faecium and Pseudomonas aeruginosa. There were no antibiotics that were dual sensitive to this bacteria. Therefore, I will prescribe 2 antibiotics that would cover both. I discussed this with patient and she understood. Strict return precautions given. 02/21 08:14 Order name: UAM; Complete Time: 10:15 sb4 02/21 08:14 Order name: CBC with Diff; Complete Time: 10:07 sb4 02/21 08:14 Order name: CMP; Complete Time: 10:07 sb4 02/21 08:16 Order name: Lactate w/ 2H reflex if indic.; Complete Time: 10:07 sb4 02/21 08:14 Order name: IV Saline Lock; Complete Time: 10:08 sb4 02/21 08:14 Order name: Labs collected and sent; Complete Time: 10:08 sb4 Administered Medications: 10:50 Drug: Nitrofurantoin PO 100 mg Route: PO; db 11:11 Follow up: Response: No adverse reaction db 10:50 Drug: LevOfloxacin PO 500 mg Route: PO; db 11:11 Follow up: Response: No adverse reaction db 10:50 Drug: Acetaminophen PO 1000 mg Route: PO; db 11:11 Follow up: Response: No adverse reaction db Disposition: 16:32 Co-signature as Attending Physician, Giovanny Myers MD I reviewed the patient's care rt provided by the Advanced Practice Provider and agree with the diagnosis and treatment plan. Disposition Summary: 02/21/23 10:50 Discharge Ordered Location: Home sb4 Problem: new sb4 Symptoms: are unchanged sb4 Condition: Stable sb4 Diagnosis - UTI/ Urinary tract infection, site not specified sb4 Followup: sb4 - With: Emergency Department - When: As needed - Reason: Fever > 102 F, Trouble breathing, Worsening of condition Discharge Instructions: - Discharge Summary Sheet sb4 Forms: - Medication Reconciliation Form sb4 - Thank You Letter sb4 - Antibiotic Education sb4 - Prescription Opioid Use sb4 - Patient Portal Instructions sb4 Prescriptions: - Macrobid 100 mg Oral Capsule - take 1 capsule by ORAL route every 12 hours for 7 days; 14 capsule; Refills: 0, sb4 Product Selection Permitted - levofloxacin 500 mg Oral Tablet - take 1 tablet by ORAL route once daily for 7 days; 7 tablet; Refills: 0, sb4 Product Selection Permitted Signatures: Dispatcher [employer] EDJose Cabrera MD MD rn Benton, Danielle, RN RN db Brown, Sophia, PA-C PA-C sb4 Giovanny Myers MD MD rt
[2023-02-21] MEDS ORDERED: levoFLOXacin 250 MG TAB ONE (10:59)
[2023-02-21] MEDS ORDERED: NITROFURAN MACRO 100 MG CAP PO ONE (10:59)
[2023-02-21] MEDS ORDERED: ACETAMINOPHEN 500 MG TAB ONE (10:59)
[2023-02-21 11:28] VITALS: TEMP 99.7
[2023-02-21 11:36] VITALS: O2SAT 100
[2023-02-21 11:37] VITALS: BP 117/64
== END 2023-02-21 11:23 | disposition home or self-care (01) ==
LOC: ER 08:11
DX: N39.0 Urinary tract infection, site not specified (principal); Z88.2 Allergy status to sulfonamides; Z88.5 Allergy status to narcotic agent; Z91.040 Latex allergy status; Z91.048 Other nonmedicinal substance allergy status
CPT/HCPCS: 36415; 80053; 81001; 83605; 85025; 99284

== ENCOUNTER 2023-03-09 15:09 | Emergency (ER) | payer OTHER ==
--- OUTSIDE RECORDS SUMMARY | 2023-03-09 15:50 | XMS REPORT | Continuity of Care Document ---
:1990 Author Organization [facility] t Address [address] 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 spina bifida s/p augmentat ion cystoplas ty and catheteri zable channel by Dr. Spicer at [facility] as a ch Scoliosis Scoliosis Disease [...] of status, status, 00:00: g of this [place] antepartum antepartum 00 note Me dical might [...] Date Date Clinician TEGADERM DRUG Active Hives 2018- Univers DRESSING INGREDI 6-13 ity of 00:00: Medical Branch Tegaderm Propensi Active Hives 2018- Univer s Dressing ty to 6-13 ity of adverse 00:00: [place] reaction 00 Medical s Branch VANCOMYC DRUG Active ITCHING Univers IN INGREDI 5-25 ity of 00:00: Medical Branch Vancomyc Propensi Active Rash 2018- Univer s in ty to 5-25 ity of adverse 00:00: [place] reaction 00 Medical s Branch SULFA Drug Active Rash Univers (SULFONA Class 4-13 ity of MIDE 00:00: [place] ANTIBIOT 00 Medical ICS) Branch Sulfa Propensi Active Rash Univers (Sulfona ty to 4-13 ity of mide adverse 00:00: [place] Antibiot reaction 00 Medica l ics) s Branch LATEX DRUG Active High Rash Univers INGREDI - ity of 00:00: [place] 00 Medical Branch SULFAMET DRUG Active Hives Univers HOXAZOLE 02-25 ity of (BULK) 00:00: [place] 00 Medical Branch Latex Propensi Active Nausea Univers ty to and/or 02-25 ity of adverse Vomiting 00:00: [place] reaction Medical s Branch Sulfamet Propensi Active Rash Univer s hoxazole ty to 02-25 ity of (Bulk) adverse 00:00: [place] reaction Medical s Branch Social History Social Habit Start Date Stop Date Quantity Comments Source Exposure to 2022-03-15 2022-03-25 Not sure [facility] SARS-CoV-2 00:00:00 18:16:[address] [facility] (event) [place] Tobacco use and 2022-03-25 2022-03-25 Smokeless tobacco Un iversity of exposure 00:00:00 00:00:00 non-user [facility] Alcohol intake 2022-03-25 2022-03-25 Current University of 00:00:00 00:00:00 non-drinker of [facility] alcohol (finding) Branch Sex Assigned At [address] 00:[facility] Smoking Status Start Date Stop Date Source Never smoked tobacco [facility] Medications Ordered Filled Start Stop Current Ordering Indication Dosage Frequency Signature Comments Components Source Medication Medication Date Date Medication? Clinician (SIG) Name Name atenoloL Yes 100mg Take 100 Univ ers 100 mg 8-25 mg by ity of tablet 00:33: mouth in [place] the Medical morning. Branch atenoloL Yes 100mg Take 100 Univ ers 100 mg 8-25 mg by ity of tablet 00:33: mouth in [place] the Medical morning. Branch heparin 2022-0 2022- No 300U 300 Units, Uni vers lock flush 03-28 IV Push, ity of (HEPARIN 18:30: 17:24 ONCE, 1 [place] LOCKFLUSH(P 00 :00 dose, On Medi jose ORCINE)(PF) Helga [place] ) 100 03/28/22 at unit/mL 1330, injection Routine 300 Units diphenhydrA 2021-0 Yes 50mg Take 50 mg [...] [place] 05 times Medical daily. Branch atenoloL 2021-0 Yes 100mg Take 100 Univ ers 100 mg 8-23 mg by ity of tablet 12:34: mouth in [place] 05 the Medical morning. Branch diphenhydrA 2021-0 Yes 50mg Take 50 [...] times Medical daily. Branch cefUROXime 2021- No [id number] 500mg Take 1 Univers 500 mg 03-28 tablet by ity of tablet 00:00: 04:59 mouth in [place] 00 :00 the Medical morning Branch and 1 tablet in the evening. Do all this for 7 days. magnesium 2021- No 2g 2 g, IV Univ ers sulfate in 03-26 Piggyback, it y of water 2 17:45: 20:17 Administer [place] as gram/50 mL 00 :00 over 60 Medica l (4 %) Minutes, Branch infusion 2 ONCE NOW, g 1 dose, On [place] 03/26/22 at 1245, Routine enoxaparin Yes 40mg 40 mg, Unive rs (LOVENOX) 03-26 Subcutaneo ity of injection 14:00: [place]ILY, [place] 40 mg 00 First dose Medical on [facility] 03/26/22 at 0900, Until Discontinu ed, Routine atenoloL Yes 100mg 100 mg, Unive rs (TENORMIN) 03-26 Oral, ity of tablet 100 14:00: DAILY, [place] mg 00 First dose Medical on [facility] 03/26/22 at 0900, Until Discontinu ed, Routine KCL No 40meq 40 mEq, Univers (KLOR-CON 03-26 Oral, ity of M20) tablet 13:30: 13:32 ONCE, 1 [place] 40 mEq 00 :00 dose, On Medical [facility] 03/26/22 at 0830, Routine dicyclomine Yes 10mg 10 mg, Univ ers (BENTYL) 03-26 Oral, QID, ity o f capsule 10 13:00: First dose [place] mg 00 on [facility] 03/26/22 at Branch 0800, Until Discontinu ed, Routine potassium 2021- No 10meq 10 mEq, IV Univers chloride in 03-26 Piggyback, i ty of water 10 13:00: 15:42 Q1H, 2 [place] mEq/100 mL 00 :00 doses, Medical RTU 10 mEq First dose Bra nch on [place] 03/26/22 at 0800, Last dose on [place] 03/26/22 at 0900, Administer over 60 Minutes, 100 mL meropenem 2021- No 1000mg 1,000 mg, Univers (MERREM) 03-26 0828 IV ity of 1,000 mg in 09:00: 08:59 Piggyback, [place] NaCl 0.9% 00 :00 Q8H ABX, Medica l (NS) 50 mL 21 doses, Bran ch MINI-BAG First dose on [place] 03/26/22 at 0400, Last dose on [facility] 04/01/22 at 2000, Administer over [...] 40 mEq 00 :00 dose, On Medical [facility] 03/26/22 at 0100, Routine ondansetron Yes 4mg 4 mg, Slow Univers (ZOFRAN 03-26 IV Push, ity of (PF)) 02:43: Q6HPRRuth [place] injection 4 03 Starting Medi jose mg on [facility] 03/25/22 at 2143, Until Discontinu ed, Routine, Nausea and Vomiting (N/V) acetaminoph 0 Yes 650mg 650 mg, Un vamsi en 03-26 Oral, ity of (TYLENOL) 02:42: Q6HP [place] tablet 650 55 Starting Medic al mg on [facility] 03/25/22 at 2142, Until Discontinu ed, Routine, Pain (scale 1-3) oxyCODONE-a Yes 1{tbl} 1 tablet, Univers cetaminophe 03-26 Oral, ity of n 02:41: Q6HPRN [place] (PERCOCET) 13 Starting Medic al 5-325 mg on Sat Branch per tablet 03/25/22 at 1 tablet 2140, Until Discontinu ed, Pain (scale 7-10) diphenhydrA Yes 50mg 50 mg, Univ ers MINE 03-26 Oral, ity of (BENADRYL) 02:40: QHSPRN, [place] tablet 50 20 Starting Medica l mg on [facility] Branch 03/25/22 at 2140, Until Discontinu ed, Routine, Congestion /Allergies , Sleep meropenem 2021- No 1000mg 1,000 mg, Univers (MERREM) 03-26 IV ity of 1,000 mg in 01:45: 01:13 [place] NaCl 0.9% 00 :00 ONCE, 1 Medical (NS) 50 mL dose, On Bran h MINI-BAG [facility] 03/25/22 at 204, Administer over 30 Minutes, [...] 4 mg tablet 08-07 ity of 00:00: [place] Medical [facility] ondansetron 2019-0 Yes Univer s 4 mg tablet 08-07 ity of 00:00: [place] [facility] ondansetron 2019-0 Yes Univer s 4 mg tablet 08-07 ity of 00:00: [place] Medical [facility] labetalol Yes [id number] 200mg Take 1 U nivers 200 mg 9-16 tablet by ity of tablet 00:00: mouth 2 [place] (two) Medical times Branch daily. labetalol Yes [id number] 200mg Take 1 U nivers 200 mg 9-16 tablet by ity of tablet 00:00: mouth 2 [place] (two) Medical times Branch daily. labetalol Yes [id number] 200mg Take 1 U nivers 200 mg 9-16 tablet by ity of tablet 00:00: mouth 2 [place] (two) Medical times Branch daily. Immunizations Ordered Filled Immunization Date Status Comments [facility] e Immunization Name Name [facility] 2019-02-08 Completed University of 00:00:00 [facility] [place] 2019-02-08 Completed University of 00:00:00 [facility] MMR 2019-02-08 Completed University of 00:00:00 [facility] TDAP 2019-01-30 Completed University of 00:00:00 [facility] TDAP 2019-01-30 Completed University of 00:00:00 [facility] TDAP 2019-01-30 Completed University of 00:00:00 [facility] HPV9 2017-02-15 Completed University of 00:00:00 [facility] HPV9 2017-02-15 Completed University of 00:00:00 [facility] HPV9 2017-02-15 Completed University of 00:00:00 [facility] Vital Signs Vital Name Observation Time Observation Value Comments Source Systolic blood 2022-03-28 16:21:00 107 mm[Hg] Univer sity of pressure [facility] Diastolic blood 2022-03-28 16:21:00 55 mm[Hg] [facility] Heart rate 2022-03-28 16:21:00 63 /min [facility] Body temperature 2022-03-28 16:21:00 36.22 Pati [facility] Respiratory rate 2022-03-28 16:21:00 18 /min [facility] Oxygen saturation in 2022-03-28 16:21:00 100 /min [facility] Arterial blood by [facility] Pulse oximetry [place] Body weight 2022-03-28 08:50:00 32.977 kg [facility] BMI 2022-03-28 08:50:00 22.18 kg/m2 [facility] Procedures Procedure Date / Time Performing Clinician Source Performed HOME HEALTH - OTHER 2022-09-21 06:01:00 Doctor Unassigned, [facility] [place] Medical [place] PHYSICIAN ORDERS 2022-06-22 06:01:00 Doctor Unassigned, [facility] [place] Medical Branch MAGNESIUM 2022-03-28 08:55:00 Negrito Olivo [facility] BASIC METABOLIC PANEL 2022-03-28 08:55:[address] [facility] (NA, K, CL, CO2, GLUCOSE, Medica l Branch BUN, CREATININE, CA) BASIC METABOLIC PANEL 2022-03-27 09:09:00 Abdulaziz Cabrera [facility] (NA, K, CL, CO2, GLUCOSE, Medica l Branch BUN, CREATININE, CA) CBC WITH DIFF 2022-03-27 09:09:00 [facility] 2022-03-26 19:21:00 Negirto Olivo [facility] PHOSPHORUS 2022-03-26 10:11:00 Negrito Olivo [facility] MAGNESIUM 2022-03-26 10:11:00 Negrito Olivo [facility] COMP. METABOLIC PANEL 2022-03-26 10:11:00 [facility] ([id number]) Medical [place] CBC WITH DIFF 2022-03-26 10:11:00 Sneha [facility] POCT TEST 2022-03-26 00:46:00 Yeni Lockett [facility] COMP. METABOLIC PANEL 2022-03-25 23:54:[address] [facility] ([id number]) Medical Branch CBC WITH DIFF 2022-03-25 23:54:00 Yeni Lockett [facility] URINALYSIS 2022-03-25 23:54:00 Yeni Lockett [facility] URINE CULTURE 2022-03-25 23:54:00 Yeni Lockett [facility] COVID-19 (ID NOW RAPID 2022-03-25 23:54:00 Yeni Lockett [facility] TESTING) Medical Branch LAB ONLY COVID 2022-03-25 23:54:00 Yeni Lockett [facility] INTERPRETATION [facility] Encounters Start End Encounter Admission Attending Care Care Encounter Source Date/Time Date/Time Type Type Clinicians Facility Department ID 2022-09-21 2022-09-21 Orders Doctor HURST 1.2.840.114 [id number] Univers 00:00:00 00:00:00 Only Unassigned, JESSICA [id number] ity of [place] [facility] [id number] [place] [phone] [address] 2022-06-22 2022-06-22 Orders Doctor HURST 1.2.840.114 [id number] Univers 00:00:00 00:00:00 Only Unassigned, JESSICA [id number] ity of [place] [facility] 4.2.7.2.686 [place] as [phone] [address] 2022-03-25 2022-03-28 Outpatient X S[facility] [id number] Univers 18:14:00 12:33:00 SONJA [facility] 2022-03-25 2022-03-28 Emergency Yeni Lockett [facility] 1.2.840. 114 [id number] Univers 18:14:00 12:33:00 Sonja Haskins [id number] ity [facility] 4.2.7.2.686 [place] [id number] [facility] 081 Branch 2022-02-15 2022-02-15 Outpatient AMBREEN_LIZZIE LEE 983 [place] 05:40:00 05:40:00 HANA 0713 [facility] 2021-01-10 2021-01-10 Outpatient [facility] [id number] Univers 00:00:00 00:00:00 [facility] 2020-11-17 2020-11-17 Orders Doctor NATALI 1.2.840.114 [id number] 00:00:00 00:00:00 Only Unassigned, JESSICA [id number] [place] [facility] .2.7.2.686 [id number] [id number] 2020-11-08 2020-11-08 Outpatient [facility] [id number] Univers 00:00:00 00:00:00 [facility] 2020-11-08 2020-11-08 Orders Doctor NATALI 1.2.840.114 [id number] 00:00:00 00:00:00 Only Unassigned, JESSICA [id number] [place] [facility] 4.2.7.2.686 [id number] 009 2020-10-11 2020-10-11 Telephone Cl [facility] 1.2.840.114 [id number] 00:00:00 00:00:00 [facility] [id number] [place] 4.2.7.2.686 Professio [phone] nal [address] 2020-10-10 2020-10-10 Orders Doctor NATALI 1.2.840.114 [id number] 00:00:00 00:00:00 Only Unassigned, JESSICA [id number] [place] [facility] 4.2.7.2.686 [id number] 009 2020-09-17 2020-09-17 Commercial Loan Assistant Erika Adams [facility] 1.2.840.114 [id number] 16:26:39 16:41:39 Visit Lab Main [place] [id number] [place] 4.2.7.2.686 Professio [phone] [address] 2020-09-17 2020-09-17 Outpatient Patrick HOSKINS [facility] [id number] Univers 16:30:00 [facility]:30:00 [facility] 2020-09-17 2020-09-17 Orders Doctor NATALI 1.2.840.114 [id number] 00:00:00 00:00:00 Only Unassigned, JESSICA [id number] [place] [facility] 4.2.7.2.686 [id number] 009 2020-07-05 2020-07-05 [facility]patient [facility] [id number] Univers 14:30:00 14:30:00 [facility] 2020-07-05 2020-07-05 Commercial Loan Assistant Erika Adams [facility] 1.2.840.114 [id number] 14:05:50 14:20:50 Visit Lab Main [place] [id number] [place] 4.2.7.2.686 [facility] [id number] [address] 2020-07-05 2020-07-05 Orders Doctor HURST 1.2.840.114 [id number] 00:00:00 00:00:00 Only Unassigned, JESSICA 350.1.13.10 [place] [facility] 4.2.7.2.686 [id number] 009 2020-05-17 2020-05-17 Orders Doctor HURST 1.2.840.114 [id number] 00:00:00 00:00:00 Only Unassigned, JESSICA 350.1.13.10 [place] [facility] 4.2.7.2.686 [id number] 009 2020-03-18 2020-03-18 Orders Doctor HURST 1.2.840.114 [id number] 00:00:00 00:00:00 Only Unassigned, JESSICA 350.1.13.10 [place] [facility] 4.2.7.2.686 [id number] 009 2020-03-09 2020-03-09 Orders Doctor HURST 1.2.840.114 [id number] 00:00:00 00:00:00 Only Unassigned, JESSICA 350.1.13.10 [place] [facility] 4.2.7.2.686 [id number] 009 2020-01-05 2020-01-05 Orders Doctor NATALI 1.2.840.114 [id number] 00:00:00 00:00:00 Only Unassigned, JESSICA 350.1.13.10 [place] [facility] 4.2.7.2.686 [id number] 009 2019-12-18 2019-12-18 Telephone [facility] 1.2.840.114 [id number] 00:00:00 00:00:00 Wondiful A [place] 350.1.13.10 [place] 4.2.7.2.[address] Professio [id number] 2019-12-16 2019-12-16 Telephone [facility] 1.2.840.114 [id number] 00:00:00 00:00:00 Wondiful A [place] 350.1.13.10 [place] 4.2.7.2.686 Professio [id number] [address] 2019-12-09 2019-12-09 Orders Doctor NATALI 1.2.840.114 [id number] 00:00:00 00:00:00 Only Unassigned, JESSICA 350.1.13.10 [place] [facility] 4.2.7.2.686 [id number] 2019-11-24 2019-11-24 Telephone [facility] 1.2.840.114 [id number] 00:00:00 00:00:00 Wondiful A [place] 350.1.13.10 [place] 4.2.7.2.686 Professio [id number] [address] 2019-11-24 2019-11-24 Orders Doctor NATALI 1.2.840.114 [id number] 00:00:00 00:00:00 Only Unassigned, JESSICA 350.1.13.10 [place] [facility] 4.2.7.2.686 [id number] 009 2019-11-07 2019-11-07 Orders Doctor NATALI 1.2.840.114 [id number] 00:00:00 00:00:00 Only Unassigned, JESSICA 350.1.13.10 [place] [facility] 4.2.7.2.686 [id number] 009 2019-11-05 2019-11-05 Telephone [facility] 1.2.840.114 [id number] 00:00:00 00:00:00 Wondiful A [place] 350.1.13.10 [place] 4.2.7.2.686 Professio [id number] [address] 2019-10-30 2019-10-30 [place] [facility] 1.2.840.114 [id number] 00:00:00 00:00:00 Wondiful A Health 350.1.13.10 [place] 4.2.7.2.686 Professio [phone] [place] [address] [address] 2019-10-30 2019-10-30 Orders Doctor NATALI 1.2.840.114 [id number] 00:00:00 00:00:00 Only Unassigned, JESSICA 350.1.13.10 [place] [facility] 4.2.7.2.686 [id number] 009 2019-10-22 2019-10-22 [place] [facility] 1.2.840.114 [id number] 00:00:00 00:00:00 Wondiful A Health 350.1.13.10 [place] 4.2.7.2.686 Professio [phone] [place] [address] Office Building [facility] 2019-10-20 2019-10-20 [place] [facility] 1.2.840.114 [id number] 00:00:00 00:00:00 Wondiful A Health 350.1.13.10 [place] 4.2.7.2.686 Professio [phone] [place] [address] Office Building [facility] 2019-10-15 2019-10-15 [facility] 1.2.840.114 [id number] 00:00:00 00:00:00 Wondiful A Health 350.1.13.10 [place] 4.2.7.2.686 Professio [phone] [place] [address] Office Building [facility] 2019-10-08 2019-10-08 [place] [facility] 1.2.840.114 [id number] 00:00:00 00:00:00 Wondiful A Health 350.1.13.10 [place] 4.2.7.2.686 Jj [id number] nal [address] One 2019-08-15 2019-08-15 Outpatient Patrick JEAN [facility] [id number] Univers 15:00:00 15:09:49 WONDIFUL ity o f [facility] 2019-05-15 2019-05-15 Outpatient Patrick JEAN [facility] [id number] Univers 15:00:00 15:59:45 WONDIFUL ity o f [facility] 2019-04-21 2019-04-21 Outpatient Patrick JEAN [facility] [id number] Univers 16:30:00 16:55:27 WONDIFUL [facility] Results Test Description Test Time Test Comments Results Result Comments Source MAGNESIUM 2022-03-28 11:10:16 Test Item Value Reference Range Interpretation Comme nts MAGNESIUM (test code = 2710057769) 1.8 mg/dL 1.7-2.4 Lab Interpretation (test code = 46814-5) Normal [facility] (NA, K, CL, CO2, GLUCOSE, BUN, CREATININE, CA)2022-03-28 11:10:15 Test Item Value Reference Range Interpretation Comments NA (test code = 136 mmol/L 135-145 4969626735) K (test code = 4.1 mmol/L 3.5-5 8919346342) CL (test code = 103 mmol/L 98-108 8817851296) CO2 TOTAL (test code = 30 mmol/L 23-31 2283858105) AGAP (test code = 2-16 6591619876) BUN (test code = 4 mg/dL 7-23 L 7702681261) GLUCOSE (test code = 100 mg/dL 70-110 3667779051) CREATININE (test code = 0.40 mg/dL 0.5-1.04 L 9881018687) CALCIUM (test code = 8.7 mg/dL 8.6-10.6 4119252830) eGFR (test code = mL/min/1.73m2 9781278073) GENARO (test code = GENARO) Association of [...] tests). Lab Interpretation Abnormal (test code = 52356-6) [facility] [id number] 19:44:05 Test Item Value Reference Range Interpretation Comments K (test code = 5301174957) 5.7 mmol/L 3.5-5 H Lab Interpretation (test code = Abnormal 36519-3) [facility] [id number] 00:46:00 Test Item Value Reference Range Interpretation Comments POCT PREG (test code = 1605) Negative On board controls acceptable with Present C Line (test code = 3574) POCT PREG LOT # (test code = 3575) [id number] POCT PREG TEST DATE (test 07/05/23 code = 3576) Lab Interpretation (test code = Normal 29602-4) [facility]. METABOLIC PANEL (09345)2022-03-26 00:22:26 Test Item Value Reference Range Interpretation Comments NA (test code = 136 mmol/L 135-145 1981591406) K (test code = 3.0 mmol/L 3.5-5 L 7769157686) CL (test code = 100 mmol/L 98-108 7330378752) CO2 TOTAL (test code = 26 mmol/L 23-31 6766227896) AGAP (test code = 2-16 6867146507) BUN (test code = 3 mg/dL 7-23 L 9740827473) GLUCOSE (test code = 100 mg/dL 70-110 9925050408) CREATININE (test code = 0.41 mg/dL 0.5-1.04 L 3524780061) TOTAL BILI (test code = 0.3 mg/dL 0.1-1.3 0642153342) CALCIUM (test code = 9.3 mg/dL 8.6-10.6 2055200978) T PROTEIN (test code = 7.3 g/dL 6.3-8.2 6027154859) ALBUMIN (test code = 4.4 g/dL 3.5-5 1256178820) ALK PHOS (test code = 143 U/L 34-122 H 5628088587) ALTv (test code = 15 U/L 5-35 1742-6) AST(SGOT) (test code = 23 U/L 13-40 8218801063) eGFR (test code = mL/min/1.73m2 0592433859) GENARO (test code = GENARO) Association of [...] tests). Lab Interpretation Abnormal (test code = 74453-9) [facility] WITH [id number] 00:09:04 Test Item Value Reference Range Interpretation Comments WBC (test code = See_Comment H [Automated 9590-2) message] The sy stem which generated this [...] RDW-SD (test code = 47.4 fL 39-49.9 09755-5) RDW-CV (test code = 14.1 % 12-15.5 788-0) PLT (test code = See_Comment H [Automated 777-3) message] The sy stem which generated this result transmitted reference range : 166 - 358 10*3/ ?L. The reference r tenisha was not used to interpret this result as normal/abnormal . MPV (test code = 8.9 fL 9.5-12.9 L 34637-4) NRBC/100 WBC (test See_Comment [Automat ed code = 9901577990) message] The system which generated this result transmitted reference range : 0.0 - 10.0 /100 WBCs. The refer ence range was not u sed to interpret th is result as normal/abnormal . NRBC x10^3 (test code See_Comment [Auto mated = 8366800955) message] The s ystem which generated this result transmitted reference range : 10*3/?L. The reference range was not used to interpret this result as normal/abnormal . GRAN MAT (NEUT) % 73.0 % (test code = 770-8) IMM GRAN % (test code 0.40 % = 5905484434) LYMPH % (test code = 20.4 % 736-9) MONO % (test code = 5.4 % 5905-5) EOS % (test code = 0.4 % 713-8) BASO % (test code = 0.4 % 706-2) GRAN MAT x10^3(ANC) 9.39 10*3/uL 1.88-7.09 H (test code = 1723771803) IMM GRAN x10^3 (test 0.05 10*3/uL 0-0.06 code = 9062636500) LYMPH x10^3 (test code 2.62 10*3/uL 1.32-3.29 = 731-0) MONO x10^3 (test code 0.70 10*3/uL 0.33-0.92 = 742-7) EOS x10^3 (test code = 0.05 10*3/uL 0.03-0.39 711-2) BASO x10^3 (test code 0.05 10*3/uL 0.01-0.07 = 704-7) Lab Interpretation Abnormal (test code = 00106-1) [facility]
[2023-03-09 16:11] LABS: Specific Gravity 1.009 (1.005-1.030); Urine Bilirubin NEGATIVE (Negative); Urine Blood Negative (Negative); Urine Clarity Clear (Clear); Urine Color Colorless (Yellow); Urine Glucose NEGATIVE (Negative); Urine Protein NEGATIVE (Negative); Urine Urobilinogen Normal (Normal)
[2023-03-09] MEDS ORDERED: ONDANSETRON 4 MG/2 ML VIAL ONE (16:15)
[2023-03-09] MEDS ORDERED: NA CHLORIDE 0.9% 1,000 ML ONE (16:15)
[2023-03-09 18:19] LABS: Hematocrit 40.6 % (36.0-45.0); Lymphocytes % 31.5 % (15.3-44.8); MCV 96.8 fL (80-100); MPV 7.8 fL (7.6-11.3)
[2023-03-09 18:22] LABS: Protime INR 1.12
[2023-03-09 18:36] LABS: Albumin 3.4 g/dL (3.4-5.0); Bilirubin Total 0.2 mg/dL (0.2-1.0); Potassium 3.1 mEq/L (3.5-5.1); Protein, Total 7.3 g/dL (6.4-8.2)
--- NOTE | 2023-03-09 18:55 | EDPHYS ---
Physician Documentation [facility] Name: Shari Estrella Age: 32 yrs Sex: Female : 1990 Arrival Date: 03/09/2023 Time: 15:09 Bed 17 Private MD: ED Physician Eric Celestin HPI: 03/09 17:06 This 32 yrs old Female presents to ER via EMS with complaints of Urinary Problem. kb 17:06 The patient presents with urinary symptoms, dark urine, n/v, fever. Onset: The kb symptoms/episode began/occurred 3 day(s) ago. Modifying factors: The symptoms are alleviated by nothing, the symptoms are aggravated by nothing. Associated signs and symptoms: Pertinent positives: fever, nausea, vomiting. Severity of symptoms: At their worst the symptoms were mild, in the emergency department the symptoms are unchanged. The patient has experienced similar episodes in the past. The patient has not recently seen a physician. Historical: - Immunization history:: Adult Immunizations up to date. - Social history:: Smoking status: unknown. ROS: 17:05 Cardiovascular: Negative for chest pain, palpitations, and edema. kb 17:05 Constitutional: Positive for fever. 17:05 Abdomen/GI: Positive for nausea and vomiting, Negative for abdominal pain. 17:05 : Positive for dark urine. 17:05 All other systems are negative. Exam: 17:04 Constitutional: This is a well developed, well nourished patient who is awake, alert, kb and in no acute distress. Head/Face: Normocephalic, atraumatic. ENT: Moist Mucous membranes Cardiovascular: Regular rate and rhythm with a normal S1 and S2. No gallops, murmurs, or rubs. No pulse deficits. Respiratory: Respirations even and unlabored. No increased work of breathing. Talking in full sentences Abdomen/GI: Soft, non-tender. No distention Skin: Warm, dry with normal turgor. Normal color. 17:04 ECG was reviewed by the Attending Physician. Vital Signs: 15:28 BP 137 / 86; Pulse 89; Resp 18; Temp 99.6; Pulse Ox 98% on R/A; eh3 16:30 BP 131 / 70; Pulse 87; Resp 18; Pulse Ox 100% on R/A; eh3 17:30 BP 136 / 67; Pulse 75; Resp 18; Pulse Ox 99% on R/A; eh3 18:30 BP 120 / 60; Pulse 75; Resp 18; Pulse Ox 95% on R/A; eh3 19:30 BP 120 / 70; Pulse 83; Resp 18; Pulse Ox 99% on R/A; eh3 MDM: 15:38 Patient medically screened. kb 17:05 Differential diagnosis: viral Infection, UTI, pyelonephritis. Data reviewed: vital kb signs, nurses notes. Historians other than the Patient: EMS: [facility]. 18:54 Management of patient was discussed with the following: Dr Celestin. Counseling: I had a kb detailed discussion with the patient and/or guardian regarding: the historical points, exam findings, and any diagnostic results supporting the discharge/admit diagnosis, lab results, the need for outpatient follow up, a family practitioner, to return to the emergency department if symptoms worsen or persist or if there are any questions or concerns that arise at home. 03/09 15:38 Order name: Urinalysis w/ reflexes; Complete Time: 16:15 kb 03/09 15:48 Order name: Blood Culture Adult (2) kb 03/09 15:48 Order name: CBC with Diff; Complete Time: 18:24 kb 03/09 15:48 Order name: CMP; Complete Time: 18:38 kb 03/09 15:48 Order name: Lactate w/ 2H reflex if indic.; Complete Time: 18:38 kb 03/09 15:48 Order name: Protime (+inr); Complete Time: 18:24 kb 03/09 15:48 Order name: Ptt, Activated; Complete Time: 18:24 kb 03/09 16:15 Order name: Flu; Complete Time: 17:26 kb 03/09 16:15 Order name: COVID-19 SARS RT PCR; Complete Time: 18:30 kb 03/09 15:48 Order name: EKG; Complete Time: 15:49 kb 03/09 15:48 Order name: Accucheck; Complete Time: 17:42 kb 03/09 15:48 Order name: Cardiac monitoring; Complete Time: 16:51 kb 03/09 15:48 Order name: EKG - Nurse/Tech; Complete Time: 16:51 kb 03/09 15:48 Order name: IV Saline Lock - Large Bore; Complete Time: 16:51 kb 03/09 15:48 Order name: Labs collected and sent; Complete Time: 17:42 kb 03/09 15:48 Order name: O2 Per Protocol; Complete Time: 16:51 kb 03/09 15:48 Order name: O2 Sat Monitoring; Complete Time: 16:51 kb 03/09 15:48 Order name: Vital Signs; Complete Time: 16:51 kb 03/09 18:17 Order name: PO challenge; Complete Time: 19:32 kb EC:04 Rate is 78 beats/min. Rhythm is regular. QRS [place] is Normal. PA interval is normal at kb 112 msec. QRS interval is normal at 76 msec. QT interval is normal at 449 msec. Administered Medications: 16:40 Drug: NS 0.9% IV 1000 ml Route: IV; Rate: 1000 ml; Site: Port-a-cath; 3 19:00 Follow up: IV Status: Completed infusion; IV Intake: 1000ml 3 16:40 Drug: Ondansetron IVP 4 mg Route: IVP; Site: Port-a-cath; eh3 17:40 Follow up: Response: No adverse reaction eh3 19:36 Drug: Potassium Chloride PO 40 mEq Route: PO; ll3 19:59 Follow up: Response: No adverse reaction ll3 19:45 Drug: HEParin Flush IVP 500 units Route: IVP; Site: Port-a-cath; ll3 19:59 Follow up: Response: No adverse reaction ll3 Disposition: 20:20 Co-signature as Attending Physician, Eric Celestin MD I agree with the assessment and kdr plan of care. Disposition Summary: 03/09/23 18:55 Discharge Ordered Location: Home kb Condition: Stable kb Diagnosis - Nausea with vomiting, unspecified kb Followup: kb - With: Emergency Department - When: As needed - Reason: Worsening of condition Followup: kb - With: Private Physician - When: 2 - 3 days - Reason: Recheck today's complaints, Continuance of care, Re-evaluation by your physician Discharge Instructions: - Discharge Summary Sheet kb - Nausea and Vomiting, Adult, [id number] kb Forms: - Medication Reconciliation Form kb - Thank You Letter kb - Antibiotic Education kb - Prescription Opioid Use kb - Patient Portal Instructions kb Prescriptions: - Zofran 4 mg Oral Tablet - take 1 tablet by ORAL route every 6 hours As needed; 20 tablet; Refills: 0, kb Product Selection Permitted Signatures: Dispatcher [employer] EDMirella Jovel, SLIP TENDER-C SLIP TENDER-Eric Ewing MD MD kdr Loubet, Lynsea RN RN 3 Omayra Mazariegos, RN RN 3 Cat Marsh, PACrissy PACrissy sb4 Corrections: (The following items were deleted from the chart) 15:40 13:28 Allergies: Latex, Natural Rubber; [place] [id number] 15:40 13:28 Allergies: Sulfa (Sulfonamide Antibiotics); [place] [address] 15:40 13:28 Allergies: Toradol; [place] [address] 15: 13:28 Home Meds: Atenolol Oral; [place] [address] 15:40 13:28 Home Meds: Oxycodone HCl Oral; [place] [address] 15:40 13:28 PMHx: Hypertension; [place] [address] 15:40 13:28 PMHx: spina bifida; [place] [address] 15:40 13:28 PMHx: UTI; [place] [address] 15:40 13:28 PSHx: Bladder; [place] [address] 15:40 13:28 PSHx: Spinal; [place] [address] 15:40 13:28 Immunization history: Adult Immunizations up to date, [place] [address] : 13:28 Social history: Smoking status: unknown [place] [id number]
--- NOTE | 2023-03-09 18:55 | ER ---
Nurse's Notes [facility] Name: Shari Estrella Age: 32 yrs Sex: Female : 1990 Arrival Date: 03/09/2023 Time: 15:09 Bed 17 Private MD: Diagnosis: Nausea with vomiting, unspecified Presentation: 03/09 15:28 Chief complaint: EMS states: pain, urgency, and frequency with urination for past few eh3 days. Hx of chronic UTI. Coronavirus screen: Vaccine status: Patient reports receiving the 2nd dose of the covid vaccine. Ebola Screen: No symptoms or risks identified at this time. Initial Sepsis Screen: Does the patient meet any 2 criteria? No. Patient's initial sepsis screen is negative. Does the patient have a suspected source of infection? Yes: Dysuria/Frequency/Urgency/UTI. Risk Assessment: Do you want to hurt yourself or someone else? Patient reports no desire to harm self or others. Onset of symptoms was March 09, 2023. 15:28 Method Of Arrival: EMS: [facility] eh3 15:28 Acuity: SAMAN 3 eh3 Triage Assessment: 15:30 General: Appears in no apparent distress. uncomfortable, Behavior is calm, cooperative, eh3 appropriate for age. Pain: Complains of pain in pelvis. Neuro: Level of Consciousness is awake, alert, obeys commands, Oriented to person, place, time, situation. Cardiovascular: Capillary refill < 3 seconds Patient's skin is warm and dry. Respiratory: Airway is patent Respiratory effort is even, unlabored, Respiratory pattern is regular, symmetrical. GI: Abdomen is round non-distended. : Reports burning with urination, pain urgency, urinary frequency. Derm: Skin is pink, warm \T\ dry. Musculoskeletal: No signs and/or symptoms reported regarding the musculoskeletal system. Historical: - Immunization history:: Adult Immunizations up to date. - Social history:: Smoking status: unknown. Screenin:30 [facility] ED Fall Risk Assessment (Adult) Score/Fall Risk Level 0 - 2 = Low Risk. Abuse eh3 screen: Denies threats or abuse. Denies injuries from another. Nutritional screening: No deficits noted. Tuberculosis screening: No symptoms or risk factors identified. Assessment: 15:30 Reassessment: No changes from previously documented assessment. See triage assessment. eh3 16:20 Reassessment: Unable to draw blood through Port-a-cath, lab contacted to collect blood eh3 specimens. 16:30 Reassessment: Patient appears in no apparent distress at this time. Patient and/or eh3 family updated on plan of care and expected duration. Pain level reassessed. Patient is alert, oriented x 3, equal unlabored respirations, skin warm/dry/pink. 17:30 Reassessment: Patient appears in no apparent distress at this time. Patient and/or eh3 family updated on plan of care and expected duration. Pain level reassessed. Patient is alert, oriented x 3, equal unlabored respirations, skin warm/dry/pink. 18:30 Reassessment: Patient appears in no apparent distress at this time. Patient and/or eh3 family updated on plan of care and expected duration. Pain level reassessed. Patient is alert, oriented x 3, equal unlabored respirations, skin warm/dry/pink. 19:30 Reassessment: Patient appears in no apparent distress at this time. Patient and/or eh3 family updated on plan of care and expected duration. Pain level reassessed. Patient is alert, oriented x 3, equal unlabored respirations, skin warm/dry/pink. Vital Signs: 15:28 BP 137 / 86; Pulse 89; Resp 18; Temp 99.6; Pulse Ox 98% on R/A; eh3 16:30 BP 131 / 70; Pulse 87; Resp 18; Pulse Ox 100% on R/A; eh3 17:30 BP 136 / 67; Pulse 75; Resp 18; Pulse Ox 99% on R/A; eh3 18:30 BP 120 / 60; Pulse 75; Resp 18; Pulse Ox 95% on R/A; eh3 19:30 BP 120 / 70; Pulse 83; Resp 18; Pulse Ox 99% on R/A; eh3 ED Course: 15:28 Patient arrived in ED. eb 15:30 Arm band placed on. eh3 15:30 Patient has correct armband on for positive identification. Bed in low position. Call eh3 light in reach. Side rails up X2. Provided Education on: Use of call cordero. Pulse ox on. NIBP on. 15:35 Omayra Mazariegos, CHATA is Primary Nurse. eh3 15:37 Triage completed. eh3 15:38 Mirella Virk FNP-C is [facility]. kb 15:38 Eric Celestin MD is Attending Physician. kb 16:20 Accessed Port-a-Cath. using accessed w/ # 20 Recio needle, ,sterile technique, per [address] protocol. Clean \T\ dry. Dressing intact. No blood return. Flushes easily. 16:54 EKG done, by ED staff. aw1 19:58 No provider procedures requiring assistance completed. IV discontinued, intact, ll3 bleeding controlled, No redness/swelling at site. Pressure dressing applied. Administered Medications: 16:40 Drug: NS 0.9% IV 1000 ml Route: IV; Rate: 1000 ml; Site: Port-a-cath; 3 19:00 Follow up: IV Status: Completed infusion; IV Intake: 1000ml [facility] 16:40 Drug: Ondansetron IVP 4 mg Route: IVP; Site: Port-a-cath; 3 17:40 Follow up: Response: No adverse reaction 3 19:36 Drug: Potassium Chloride PO 40 mEq Route: PO; ll3 19:59 Follow up: Response: No adverse reaction 3 19:45 Drug: HEParin Flush IVP 500 units Route: IVP; Site: Port-a-cath; 3 19:59 Follow up: Response: No adverse reaction 3 Medication: 19:59 VIS not applicable for this client. 3 Intake: 19:00 IV: 1000ml; Total: 1000ml. [facility] Outcome: 18:55 Discharge ordered by . kb 19:58 Discharged to home via wheelchair, with family. 3 19:58 Condition: stable 19:58 Discharge instructions given to patient, Instructed on discharge instructions, follow up and referral plans. medication usage, Demonstrated understanding of instructions, follow-up care, medications, Prescriptions given X 1. 19:59 Patient left the ED. 3 Signatures: Mirella Virk FNP-C [employer] TECH[employer]Y MANAGER-Patti Norris Lynsea, RN RN 3 Omayra Mazariegos RN RN [facility] Meredith Evans aw1 Corrections: (The following items were deleted from the chart) 15:40 13:28 Allergies: Latex, Natural Rubber; [place] [address] 15:40 13:28 Allergies: Sulfa (Sulfonamide Antibiotics); [place] [address] 15:40 13:28 Allergies: Toradol; [facility] 15: 13:28 Home Meds: Atenolol Oral; [facility] 15:40 13:28 Home Meds: Oxycodone HCl Oral; [facility] 15: 13:28 PMHx: Hypertension; [facility] 15:40 13:28 PMHx: spina bifida; [facility] 15: 13:28 PMHx: UTI; [facility] : 13:28 PSHx: Bladder; 3 3 : 13:28 PSHx: Spinal; [facility] 15:40 13:28 Immunization history: Adult Immunizations up to date, [place] [address] : 13:28 Social history: Smoking status: unknown [place] [address] 13:28 General: Appears in no apparent distress. uncomfortable, Behavior is calm, 3 cooperative, appropriate for age, [facility] : 13:28 Pain: Complains of pain in pelvis [place] [address] : 13:28 Neuro: Level of Consciousness is awake, alert, obeys commands, Oriented to [facility] person, place, time, situation, [facility] : 13:28 Cardiovascular: Capillary refill < 3 seconds Patient's skin is warm and dry. [place] [address] : 13:28 Respiratory: Airway is patent Respiratory effort is even, unlabored, Respiratory [facility] pattern is regular, symmetrical, [facility] : 13:28 GI: Abdomen is round non-distended, [place] [address] : 13:28 Derm: Skin is pink, warm \T\ dry. [place] [address] : 13:28 Musculoskeletal: No signs and/or symptoms reported regarding the musculoskeletal [facility] system. [facility] : 13:28 [address] [place] [address] 20:46 19:58 BP 120 / 70; Pulse 83bpm; Resp 18bpm; Pulse Ox 99% RA; ll3 3
[2023-03-09] MEDS ORDERED: POTASSIUM CL SA 10 MEQ TAB PO ONE (19:31)
[2023-03-09] MEDS ORDERED: HEPARIN 500 UNIT/5 ML SYR IV ONE (19:48)
[2023-03-09 20:24] VITALS: TEMP 99.6
[2023-03-09 20:26] VITALS: O2SAT 99
[2023-03-09 20:27] VITALS: BP 120/70
--- NOTE | 2023-03-12 13:09 | EKG ---
Test Date: 2023-03-09 Test Time: 16:50:50 Academic Support Specialist: CECILIA MEASUREMENT RESULTS: Intervals: Rate: 78 AK: 112 QRSD: 76 QT: 394 QTc: 449 [place]: P: 43 AK: 112 QRS: 84 T: 92 INTERPRETIVE STATEMENTS: Normal sinus rhythm ST & T wave abnormality, consider anterior ischemia Abnormal ECG Compared to ECG 01/21/2023 12:45:14 ST (T wave) deviation now present T-wave abnormality no longer present Possible ischemia still present Electronically Signed On 03-12-23 13:06:31 CDT by Dimas Orellana
== END 2023-03-09 19:59 | disposition home or self-care (01) ==
LOC: ER 15:09
DX: R11.2 Nausea with vomiting, unspecified (principal); Z20.822 Contact with and (suspected) exposure to COVID-19
CPT/HCPCS: 96361; 87040 ×2; 85025; 36415; 85610; 83605; 85730; 81003; 80053; 87635; 87804 ×2; 96375; 96374; 99285; J1642; J2405; J7030; 93005

== ENCOUNTER → 2023-08-16 | Emergency (ER) | payer OTHER ==
[~2023-08-16] MED LIST: HYDROCODONE/APAP 5/325 MG TAB ONE
--- NOTE | 2023-08-16 14:57 | RAD REPORT ---
EXAM DESCRIPTION: CT - Thoracic Spine W/o Cont - 08/16/2023 1:45 pm CLINICAL HISTORY: fall, back pain COMPARISON: Head C Spine Mpr Wo Con dated 07/09/2018; Chest Abdomen Pelvis W Cont dated 10/28/2022 TECHNIQUE: Axial noncontrast CT imaging of the thoracic spine was performed with coronal and sagitta l re-formatted images. All CT scans are performed using dose optimization technique as appropriate and may include automated exposure control or mA/KV adjustment according to patient size. FINDINGS: No acute thoracic spine fracture seen. Severe scoliotic deformity, stable in appearance, w ith marked levoconvex scoliosis, with Walden angle measuring 163 degrees between L1-2 and T8-9. Correct can dextroconvex scoliosis at the midthoracic region. Multilevel ankylosis across the facet joints ag ain seen. No aggressive marrow pattern. 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 Elongated fluid collection w ith marginal calcifications is stable in appearance, suggestive of a meningocele or myelomeningocele, not well evaluated on CT. Paraspinal tissues are normal in thickness. No paraspinal abscess or hematoma seen. Intervertebral disc disease assessment is inherently limited by CT. Within these limitations, no high -grade canal stenosis suspected. The visualized portions of the lungs are clear. Moderate stool burden throughout the colon. Left lowe r renal pole 5 mm nonobstructing calculus. Sequelae of small bowel resection, and peritoneal shunt ca theter. 13 mm cholesterol containing gallstone is noted. Linear soft tissue density tract extending a long the right paramidline lower anterior abdominal wall region is stable, of indeterminate significa nce. IMPRESSION: No acute osseous abnormality. Stable findings including severe scoliotic deformity, and sequelae of spinal dysraphism. Other incide ntal findings including cholelithiasis and a nonobstructing left lower renal pole 5 mm calculus.
--- NOTE | 2023-08-16 15:00 | RAD REPORT ---
EXAM DESCRIPTION: CT - Spine Lumbar Wo Con - 08/16/2023 1:45 pm CLINICAL HISTORY: LOWER BACK PAIN COMPARISON: Chest Abdomen Pelvis W Cont dated 10/28/2022; Stone Protocol dated 01/21/2023 TECHNIQUE: Axial noncontrast CT imaging of the lumbar spine was performed with coronal and sagittal re-formatted images. All CT scans are performed using dose optimization technique as appropriate and may include automated exposure control or mA/KV adjustment according to patient size. FINDINGS: No acute lumbar spine fracture seen. No aggressive marrow pattern. Severe scoliotic deform ity at the thoracolumbar junction again seen. Sequelae of spinal dysraphism throughout the lumbar and sacral segments, with a stable elongated fluid collection at the level of the posterior elements wit h marginal calcifications suggestive of a meningocele or myelomeningocele. Paraspinal tissues are normal in thickness. No paraspinal abscess or hematoma seen. Intervertebral disc disease assessment is inherently limited by CT. Within these limitations, no high -grade canal stenosis suspected. Other incidental findings as above, as described on the thoracic sp ine CT of the same day. IMPRESSION: No acute osseous abnormality. Stable chronic findings as above.
--- NOTE | 2023-08-16 15:04 | EDPHYS ---
Physician Documentation [facility] Name: Shari Estrella Age: 33 yrs Sex: Female : 1990 Arrival Date: 08/16/2023 Time: 12:15 Bed IW1 Private MD: ED Physician Jose Jain HPI: 08/16 13:40 This 33 yrs old Female presents to ER via Wheelchair with complaints of Fall Injury, rn Back Pain. 13:40 Details of fall: The patient fell from a height, Bed. Onset: The symptoms/episode rn began/occurred 4 day(s) ago. Associated injuries: The patient sustained upper back injury, injury to the low back. Severity of symptoms: At their worst the symptoms were moderate, in the emergency department the symptoms are unchanged. The patient has not experienced similar symptoms in the past. Patient reports fall out of bed 4 days ago. Injured mid and lower back. No other injuries. Patient states [id number] medication not helping and is too soon to see her pain doctor for her pain medication at this time so came in for evaluation and pain control.. Historical: - Allergies: 12:58 Latex; ph 12:58 Sulfa (Sulfonamide Antibiotics); ph - Home Meds: 12:58 atenolol 100 mg Oral tablet daily [Active]; oxycodone-acetaminophen 10-325 mg Oral ph tablet as needed for Pain [Active]; - PMHx: 12:58 chronic back pain; Hypertensive disorder; spina bifida; ph - PSHx: 12:58 back surgery; bladder surgery; shunt; ph - Immunization history:: Adult Immunizations unknown. - Family history:: not pertinent. - Social history:: Smoking status: Patient denies any tobacco usage or history of. - Hospitalizations: : No recent hospitalization is reported. ROS: 13:40 Constitutional: Negative for fever, chills, and weight loss, Neck: Negative for injury, rn pain, and swelling, Cardiovascular: Negative for chest pain, palpitations, and edema, Respiratory: Negative for shortness of breath, cough, wheezing, and pleuritic chest pain, Abdomen/GI: Negative for abdominal pain, nausea, vomiting, diarrhea, and constipation, Back: Positive for mid and lower back pain Exam: 13:40 Constitutional: This is a well developed, well nourished patient who is awake, alert, rn and in no acute distress. Neck: Trachea midline, no masses palpated, and no cervical lymphadenopathy. Supple, full range of motion without nuchal rigidity, or vertebral point tenderness. No Meningismus. Back: Mild tenderness lower thoracic and upper lumbar paraspinal region. Patient with baseline severe curvature and scoliosis of spine. MS/ Extremity: Pulses equal, no cyanosis. Neurovascular intact. Full, normal range of motion. Equal circumference. Neuro: Awake and alert, GCS 15 Vital Signs: 12:58 BP 138 / 94; Pulse 94; Resp 18; Temp 99; Pulse Ox 100% on R/A; ph MDM: 12:27 Patient medically screened. rn 15:02 Differential diagnosis: contusion, fracture, sprain, strain. Data reviewed: vital rn signs, nurses notes, radiologic studies, CT scan, and as a result, I will discharge patient. Counseling: I had a detailed discussion with the patient and/or guardian regarding the historical points, exam findings, and any diagnostic results supporting the discharge/admit diagnosis, radiology results, the need for outpatient follow up, to return to the emergency department if symptoms worsen or persist or if there are any questions or concerns that arise at home. Response to treatment: the patient's symptoms have mildly improved after treatment, and as a result, I will discharge patient. Special discussion: I discussed with the patient/guardian in detail that at this point there is no indication for admission to the hospital. It is understood, however, that if the symptoms persist or worsen the patient needs to return immediately for re-evaluation. ED course: No acute traumatic findings on CT thoracic or lumbar spine. Will DC home with return precautions. Has follow-up with her pain management doctor next week.. 08/16 13:19 Order name: CT Thoracic Spine Wo Cont; Complete Time: 15:02 rn 08/16 13:19 Order name: CT Lumbar Spine Wo Con; Complete Time: 15:02 rn Administered Medications: 13:14 Drug: HYDROcodone-acetaminophen PO 5 mg-325 mg 2 tabs PO once Route: PO; nj1 Disposition Summary: 08/16/23 15:04 Discharge Ordered Notes: Location: Home rn Problem: new rn Symptoms: have improved rn Condition: Stable rn Diagnosis - Contusion of back wall of thorax rn - Contusion of lower back and pelvis rn Followup: rn - With: Private Physician - When: As needed - Reason: Recheck today's complaints, Re-evaluation by your physician Discharge Instructions: - Discharge Summary Sheet rn - Contusion rn Forms: - Medication Reconciliation Form rn - Thank You Letter rn - Antibiotic rn [facility] - Prescription Opioid Use rn - Patient Portal Instructions rn - Leadership Thank You Letter rn Signatures: Dispatcher [employer] EDMS Jose Jain MD MD rn Hall, Patricia, RN RN ph Jaco, Norma, RN RN nj1 Corrections: (The following items were deleted from the chart) 14:01 12:59 Spine Thoracic Ap/Lat+RAD.RAD.BRZ ordered. EDMS EDMS 14:01 12:59 Lumbar Spine 3 Views+RAD.RAD.BRZ ordered. EDMS EDMS
--- NOTE | 2023-08-16 15:04 | ER ---
Nurse's Notes [facility] Name: Shari Estrella Age: 33 yrs Sex: Female : 1990 Arrival Date: 08/16/2023 Time: 12:15 Bed IW1 Private MD: Diagnosis: Contusion of back wall of thorax;Contusion of lower back and pelvis Presentation: 08/16 12:57 Chief complaint: Patient states: Fell off of bed 4 days ago, c/o mid back pain, denies ph LOC. Coronavirus screen: Vaccine status: Patient reports receiving the 2nd dose of the covid vaccine. Ebola Screen: No symptoms or risks identified at this time. Initial Sepsis Screen: Does the patient meet any 2 criteria? No. Patient's initial sepsis screen is negative. Does the patient have a suspected source of infection? No. Patient's initial sepsis screen is negative. Risk Assessment: Do you want to hurt yourself or someone else? Patient reports no desire to harm self or others. 12:57 Method Of Arrival: Wheelchair 12:57 Acuity: SAMAN 4 12:57 Onset of symptoms was August 16, 2023. ph Triage Assessment: 12:58 General: Appears in no apparent distress. Behavior is calm, cooperative. Pain: ph Complains of pain in low back area. Neuro: Level of Consciousness is awake, alert, obeys commands, Oriented to person, place, time, situation. Historical: - Allergies: 12:58 Latex; ph 12:58 Sulfa (Sulfonamide Antibiotics); ph - Home Meds: 12:58 atenolol 100 mg Oral tablet daily [Active]; oxycodone-acetaminophen 10-325 mg Oral ph tablet as needed for Pain [Active]; - PMHx: 12:58 chronic back pain; Hypertensive disorder; spina bifida; ph - PSHx: 12:58 back surgery; bladder surgery; shunt; ph - Immunization history:: Adult Immunizations unknown. - Family history:: not pertinent. - Social history:: Smoking status: Patient denies any tobacco usage or history of. - Hospitalizations: : No recent hospitalization is reported. Screenin:00 [facility] ED Fall Risk Assessment (Adult) History of falling in the last 3 months, ph including since admission Yes- single mechanical fall (1 pt) Confusion or Disorientation No (0 pts) Intoxicated or Sedated No (0 pts) Impaired Gait Yes (1 pt) Mobility Assist Device Used Yes (1 pt) Altered Elimination Yes (1 pt) Score/Fall Risk Level 3 or more points = High Risk Oriented to surroundings, Maintained a safe environment, Hourly rounding (assess needs \T\ fall precautionary measures) done. Abuse screen: Denies threats or abuse. Denies injuries from another. Nutritional screening: No deficits noted. Tuberculosis screening: No symptoms or risk factors identified. Vital Signs: 12:58 BP 138 / 94; Pulse 94; Resp 18; Temp 99; Pulse Ox 100% on R/A; ph ED Course: 12:18 Patient arrived in ED. mg5 12:27 Jose Jain MD is Attending Physician. rn 12:30 Patient has correct armband on for positive identification. ph 12:58 Triage completed. ph 12:59 Arm band placed on Patient placed in waiting room, Patient notified of wait time. ph 13:44 CT Thoracic Spine Wo Cont In Process Unspecified. EDMS 13:44 CT Lumbar Spine Wo Con In Process Unspecified. EDMS 15:15 Bernarda Mazariegos, RN is Primary Nurse. ph 15:15 No provider procedures requiring assistance completed. Patient did not have IV access ph during this emergency room visit. Administered Medications: 13:14 Drug: HYDROcodone-acetaminophen PO 5 mg-325 mg 2 tabs PO once Route: PO; nj1 Medication: 13:00 VIS not applicable for this client. ph Outcome: 15:04 Discharge ordered by . rn 15:15 Patient left the ED. ph 15:15 Discharged to home with significant other, ph 15:15 Condition: good 15:15 Discharge instructions given to patient, Instructed on discharge instructions, follow up and referral plans. Demonstrated understanding of instructions, follow-up care, Signatures: Dispatcher [employer] EDJose Cabrera MD MD rn Hall, Patricia, RN RN Carina Olivas RN RN janine Agnes Singleton 5
[2023-08-16 17:26] VITALS: BP 138/94; TEMP 99; O2SAT 100
== END ==
LOC: ER 12:15
DX: S30.0XXA Contusion of lower back and pelvis, initial encounter (principal); S20.229A Contusion of unspecified back wall of thorax, initial encounter; W06.XXXA Fall from bed, initial encounter; Z88.2 Allergy status to sulfonamides; Z91.040 Latex allergy status
CPT/HCPCS: 72128; 72131; 99283

== ENCOUNTER 2024-06-30 11:56 | Day surgery (SDC) | payer OTHER ==
[2024-06-27 11:27] LABS: Anion Gap 11.2 mEq/L (5.0-15.0); Potassium 3.2 mEq/L (3.5-5.1)
[2024-06-30] MEDS ORDERED: MIDAZOLAM HCL 2 MG/2 ML INJ ONE (12:26)
[2024-06-30] MEDS ORDERED: propofoL 200 MG/20 ML VIAL IV ONE (12:26)
[2024-06-30] MEDS ORDERED: ONDANSETRON 4 MG/2 ML VIAL ONE (12:26)
[2024-06-30] MEDS ORDERED: LIDOCAINE 2% MPF 5 ML VIAL ONE (12:26)
[2024-06-30] MEDS ORDERED: FENTANYL CITR 100 MCG/2 ML ONE (12:26)
[2024-06-30] MEDS: Ringers Lactate 1,000 ML IV ONE (12:38)
[2024-06-30] MEDS ORDERED: CEFAZOLIN SODIUM 1 GM/VIAL ONE ×2 (12:45→13:30)
[2024-06-30] MEDS: LIDOCAINE HCL/EPINEPHRINE 20 ML MDV ONE (12:48)
[2024-06-30] MEDS ORDERED: CEFAZOLIN SODIUM 2 GM/VIAL ONE ×2 (13:02→13:50)
[2024-06-30] MEDS: ALPRAZOLAM 0.5 MG TABLET PO ONE (13:13)
[2024-06-30] MEDS ORDERED: NS 0.9% VIAL 10 ML ONE (13:37)
--- NOTE | 2024-06-30 14:22 | P.OP ---
Preoperative diagnosis: LEFT Hip Chronic Wound Postoperative diagnosis: LEFT Hip Chronic Wound Primary procedure: Debridement of LEFT Hip Chronic Wound Anesthesia: Local 1% lidocaine Estimated blood loss: <1cc Specimen: Cultures, Debridement Tissue Findings: Pressure Necrosis to wound ~ 3cm round up to fascia Complications: None Transferred to: Recovery Room Condition: Good
[2024-06-30] MEDS: HYDROCODONE/APAP 7.5/325 MG TAB PO ONE (14:30)
[2024-06-30] MEDS: HYDROCODONE/APAP 7.5/325 MG TAB ONE (14:32)
[2024-06-30 14:33] VITALS: O2SAT 99
[2024-06-30 15:02] VITALS: BP 131/83; TEMP 99.6
--- NOTE | 2024-07-01 00:43 | OP ---
Date of Procedure: 06/30/2024 Surgeon: Jr Salazar MD, Preoperative Diagnosis: Left hip chronic wound. Postoperative Diagnosis: Left hip chronic wound. Procedure Performed: Debridement of left hip chronic wounds. Anesthesia: 1% lidocaine with epinephrine utilized. Estimated Blood Loss: Less than 1 cc. Specimens: Culture sent, both aerobic and anaerobic speciation and debridement tissue. Findings: There was pressure necrosis to wound, which was approximately 3 cm, round, extending to th e fascia overlying the bone of the ischium on the left and a satellite 1 cm round superficial subderm al skin lesion. Complications: None. Disposition: The patient was transferred to recovery room in good condition. Procedure In Detail: After informed consent was obtained, the patient was brought to the operating r oom, prepped in the usual sterile fashion. After adequate anesthesia was achieved with 1% lidocaine, I debrided an area using combination of sharp dissection as well as curette circumferentially around the 3 cm wound of the left ischium. Ultimately removing this tissue, there was a small amount of mu rky fluid, which was cultured for both aerobic and anaerobic speciation. At this point, I curetted t he remainder of the area. Hemostasis was achieved with electrocautery. The wound was then packed wi th Vashe, damp to dry and sterile dressing was placed over top. The patient tolerated procedure with out incident or complication, and transferred to PACU in good condition. All counts were correct at the end of the case. CARLOS/TENZIN Voice ID: [id number] Report ID: [id number]
--- NOTE | 2024-07-01 10:09 | EKG ---
Test Date: 2024-06-27 Test Time: 11:48:45 Lecturer Of Portuguese: RASHMI MEASUREMENT RESULTS: Intervals: Rate: 100 NV: 114 QRSD: 72 QT: 328 QTc: 423 Fowler: P: 26 NV: 114 QRS: 9 T: -44 INTERPRETIVE STATEMENTS: Normal sinus rhythm Possible Inferior infarct, age undetermined Cannot rule out Anterior infarct, age undetermined Abnormal ECG Compared to ECG 04/11/2023 18:11:18 Myocardial infarct finding now present T-wave abnormality no longer present Possible ischemia no longer present Electronically Signed On 07-01-24 10:07:12 PARK ACTIVITIES COORDINATOR by Epi Yanez
== END 2024-06-30 15:03 | disposition home or self-care (01) ==
LOC: OR 11:56
PROVIDERS: ATTEND Surgery
PROC: 0JDM0ZZ Extraction of Left Upper Leg Subcutaneous Tissue and Fascia, Open Approach (ICD-10-PCS; principal; 2024-06-30 13:45)
DX: L89.229 Pressure ulcer of left hip, unspecified stage (principal)
CPT/HCPCS: 93005; 87070; 80048; 36415 ×2; 87205 ×2; 84703; 84132; 87075; 11042; A4216; J7120; J0690; 87077; 87186; J2003; J2250; J2405; J2704; J3010

== ENCOUNTER 2024-10-02 13:29 | Inpatient (IN) | payer OTHER ==
[2024-10-02] MEDS: VANCOMYCIN 500 MG in NA CHLORIDE 0.9% 100 ML IVPB SCH (09:00)
[2024-10-02] MEDS ORDERED: NA CHLORIDE 0.9% 0 ML ONE (14:51)
[2024-10-02] MEDS ORDERED: VANCOMYCIN 1 GM/VIAL ONE (14:51)
[2024-10-02] MEDS ORDERED: NA CHLORIDE 0.9% 1,000 ML ONE ×2 (14:52→19:38)
[2024-10-02 17:23] LABS: Absolute Eosinophils 0.1 K/uL (0-0.5); Absolute Lymphocytes (CBC) 1.8 K/uL (0.7-4.9); Absolute Monocytes 0.4 K/uL (0.1-1.3); Absolute Neutrophil 5.5 K/uL (1.8-8.0); Basophils % 0.5 % (0-1.3); Eosinophils % 0.8 % (0-4.4); Hematocrit 19.4 % (36.0-45.0); Lymphocytes % 22.5 % (15.3-44.8); MCH 24.2 pg (27.0-35.0); MCHC 30.4 g/dL (32.0-36.0); MCV 79.7 fL (80-100); MPV 7.4 fL (7.6-11.3); Monocytes % 5.6 % (3.3-12.3); Neutrophils % 70.6 % (41.7-73.7); Nucleated Red Blood Cells % 0.1 % (0-0); Platelets 427 thou/uL (152-406); RBC Red Blood Cell Count 2.44 M/uL (3.86-4.86)
[2024-10-02] MEDS ORDERED: NA CHLORIDE 0.9% 100 ML ONE ×2 (17:23→22:43)
[2024-10-02] MEDS ORDERED: VANCOMYCIN 500 MG/VIAL ONE (17:23)
[2024-10-02 17:24] LABS: Protime INR 1.62
[2024-10-02 17:35] LABS: AST/SGOT 13 U/L (15-37); Albumin 1.5 g/dL (3.4-5.0); Albumin/Globulin Ratio 0.3 (1.1-1.8); Alkaline Phosphatase 171 U/L (45-117); Anion Gap 9.3 mEq/L (5.0-15.0); BUN Blood Urea Nitrogen 7 mg/dL (7-18); Bicarbonate 29 mEq/L (21-32); Globulin 4.3 g/dL (2.3-3.5); Glomerular Filtration Rate 136 ml/min (=/>90); Glucose Level 120 mg/dL (74-106); Potassium 3.3 mEq/L (3.5-5.1); Protein, Total 5.8 g/dL (6.4-8.2); Sodium Level 136 mEq/L (136-145)
[2024-10-02 17:41] LABS: ALT/SGPT < 14 U/L (13-56); Bilirubin Total < 0.2 mg/dL (0.2-1.0)
[2024-10-02] MEDS ORDERED: NA CHLORIDE 0.9% 250 ML ONE (17:47)
--- NOTE | 2024-10-02 18:21 | ER ---
Nurse's Notes [facility] Name: Shari Estrella Age: 34 yrs Sex: Female : 1990 Arrival Date: 10/02/2024 Time: 13:29 Bed 14 Private MD: Diagnosis: Anemia, unspecified;Decubitus ulcer Presentation: 10/02 13:45 Chief complaint: Patient states: she was sent from dr earlene for continued blood ap3 from chronic wound on buttocks. Coronavirus screen: At this time, the client does not indicate any symptoms associated with coronavirus-19. Ebola Screen: No symptoms or risks identified at this time. Initial Sepsis Screen: Does the patient meet any 2 criteria? HR > 90 bpm. Yes Does the patient have a suspected source of infection? No. Patient's initial sepsis screen is negative. Risk Assessment: Do you want to hurt yourself or someone else? Patient reports no desire to harm self or others. Onset of symptoms is unknown. 13:45 Method Of Arrival: Wheelchair ap3 13:50 Acuity: SAMAN 2 ap3 Triage Assessment: 13:47 General: Appears in no apparent distress. Behavior is calm, cooperative, appropriate ap3 for age. Pain: Denies pain. Neuro: Level of Consciousness is awake, alert, obeys commands, Oriented to person, place, time, situation. Cardiovascular: Patient's skin is warm and dry. Respiratory: Airway is patent Respiratory effort is even, unlabored. Derm: Parent/caregiver reports the patient having increased bleeding from chronic wound on buttocks. 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 Flu vaccine is not up to date. - Infectious Disease History:: Denies. - Social history:: Smoking status: Patient denies any tobacco usage or history of. Screenin:48 Abuse screen: Denies threats or abuse. Nutritional screening: No deficits noted. ap3 Tuberculosis screening: No symptoms or risk factors identified. 20:05 [facility] ED Fall Risk Assessment (Adult) History of falling in the last 3 months, bm8 including since admission Yes- physiologic fall (2 pts) Confusion or Disorientation No (0 pts) Intoxicated or Sedated No (0 pts) Impaired Gait Yes (1 pt) Mobility Assist Device Used Yes (1 pt) Altered Elimination Yes (1 pt) Score/Fall Risk Level 3 or more points = High Risk Oriented to surroundings, Maintained a safe environment, Educated pt \T\ family on fall prevention, incl call for assistance when getting out of bed, Assessed \T\ reinforced patient's understanding of fall precautions, Hourly rounding (assess needs \T\ fall precautionary measures) done, Used ambulatory aids as needed (educated on \T\ assisted with), Used gait belt as appropriate Implemented a Fall Risk Plan of Care. Assessment: 14:54 Reassessment: PHLEBOTOMY CONTACTED FOR BLOOD DRAW. bp 16:00 Reassessment: No changes from previously documented assessment. Patient and/or family ld1 updated on plan of care and expected duration. Pain level reassessed. Charge nurse at bedside attempting Ultrasound IV access. Patient denies pain at this time. 17:15 Reassessment: Patient appears in no apparent distress at this time. No changes from ld1 previously documented assessment. Patient and/or family updated on plan of care and expected duration. Pain level reassessed. 17:54 Reassessment: Patient appears in no apparent distress at this time. No changes from ld1 previously documented assessment. Patient and/or family updated on plan of care and expected duration. Pain level reassessed. Patient denies pain at this time. Vital Signs: 13:45 BP 109 / 80; Pulse 122; Resp 18; Temp 99.2; Pulse Ox 96% on R/A; Weight 30.84 kg; ap3 16:28 BP 108 / 56; Pulse 116; Resp 18; Pulse Ox 100% on R/A; ld1 17:55 BP 121 / 60; Pulse 99; Resp 18; Pulse Ox 98% on R/A; ld1 ED Course: 13:31 Patient arrived in ED. mr 13:34 Malachi Ferreira MD is Attending Physician. sp3 13:48 Arm band placed on right wrist. ap3 13:50 Triage completed. ap3 14:26 Juan Jose Irwin, RN is Primary Nurse. bp 14:54 Accessed Port-a-Cath. using accessed w/ #19 Recio needle, Clean \T\ dry. Dressing intact. bp No blood return. Flushes easily. 16:48 Attending Physician role handed off by Malachi Ferreira MD rn 16:48 Jose Jain MD is Attending Physician. rn 17:07 Accessed peripheral vein via ultrasound, utilizing dynamic ultrasound technique using hb 20G Nexia IV catheter per hospital protocol. 20g LFA. Good blood return. Flushes easily. 17:07 Initial lab(s) drawn, by me, sent to lab. Second set of blood cultures drawn by me. hb 17:51 Type And Screen Sent. ph 18:20 Prince Martini MD is Hospitalizing Provider. rn 20:05 Patient has correct armband on for positive identification. Provided Education on: need bm8 for admission. 20:05 No provider procedures requiring assistance completed. Patient admitted, IV remains in bm8 place. Administered Medications: 16:35 Not Given (Physician Discretion): vancomycin1 grams IVPB once over 2 hrs ld1 17:27 Drug: NS 0.9% IV (30 ml/kg) 30 ml/kg IV at bolus once; Sepsis Protocol; to be given as ld1 a bolus over 90 minutes Route: IV; Rate: bolus; Site: left forearm; 20:06 Follow up: Response: No adverse reaction; IV Status: Completed infusion; IV Intake: bm8 925.2ml 17:27 Drug: vancoMYCIN IVPB 500 mg IVPB once over 1 hrs Route: IVPB; Infused Over: 1 hrs; ld1 Site: left forearm; 20:06 Follow up: Response: No adverse reaction; IV Status: Completed infusion; IV Intake: bm8 250ml Medication: 20:05 VIS not applicable for this client. bm8 Intake: 20:06 IV: 250ml; Total: 250ml. bm8 20:06 IV: 925ml; Total: 1175ml. bm8 Outcome: 18:21 Decision to Hospitalize by Provider. rn 20:05 Admitted to ER Hold. Please see [facility] for further documentation. bm8 20:05 Condition: stable 20:05 Instructed on follow up and referral plans. the need for admit, Demonstrated understanding of instructions, follow-up care, medications, 10/03 17:16 Patient left the ED. iw Signatures: Gissell Curtis, Reg Reg mr Apurva Saeed, RN RN iw Jose Jain MD MD rn Yair, Bernarda, RN RN ph Eli Lewis, CHATA RN Juan Jose Carreno, RN RN bp Zenaida Luis, RN RN ap3 Jenniffer Paiz RN RN ld1 Malachi Ferreira MD MD sp3 Alin Rouse RN RN bm8
--- NOTE | 2024-10-02 18:21 | EDPHYS ---
Physician Documentation [facility] Name: Shari Estrella Age: 34 yrs Sex: Female : 1990 Arrival Date: 10/02/2024 Time: 13:29 Bed 14 Private MD: ED Physician Jose Jain HPI: 10/02 16:23 This 34 yrs old Female presents to ER via Wheelchair with complaints of Wound Infection.sp3 16:23 34-year-old female with a history of spina bifida, chronic pain, hypertension presents sp3 to the ED with chief complaint bleeding wound sent from wound care by Dr. Barber. Dr. Barber had called and said that the chronic wound which has been debrided in the past by Dr. Salazar continues to ooze and he cannot control the bleeding fully. He sent her over here for surgical evaluation, possible further debridement and evaluation for possible infection. Heart rate initially in the 120s with repeat pending. Normal blood pressure. Patient denies any fever, headache, chest pain, shortness of breath, rash or any other signs or symptoms on ROS at this time.. SOLE SKIVER: 13:48 LMP N/A - control method, Not ap3 Historical: - Allergies: 13:47 Latex; ap3 13:47 Ketorolac; ap3 13:47 Sulfa (Sulfonamide Antibiotics); ap3 13:47 Tape; ap3 - PMHx: 13:47 Hypertensive disorder; chronic back pain; spina bifida; ap3 - PSHx: 13:47 back surgery; bladder surgery; shunt; ap3 - Immunization history:: Client reports having NOT received the Covid vaccine. Flu vaccine is not up to date. - Infectious Disease History:: Denies. - Social history:: Smoking status: Patient denies any tobacco usage or history of. ROS: 16:27 Constitutional: Negative for fever, chills, and weight loss, Eyes: Negative for injury, sp3 pain, redness, and discharge, Neck: Negative for injury, pain, and swelling, Respiratory: Negative for shortness of breath, cough, wheezing, and pleuritic chest pain, Abdomen/GI: Negative for abdominal pain, nausea, vomiting, diarrhea, and constipation, Back: Negative for injury and pain, MS/Extremity: Negative for injury and deformity, Neuro: Negative for headache, weakness, numbness, tingling, and seizure, Psych: Negative for depression, anxiety, suicide ideation, homicidal ideation, and hallucinations, Allergy/Immunology: Negative for hives, rash, and allergies, Endocrine: Negative for neck swelling, polydipsia, polyuria, polyphagia, and marked weight changes, Hematologic/Lymphatic: Negative for swollen nodes, abnormal bleeding, and unusual bruising, 16:27 All other systems are negative, Exam: 16:27 Constitutional: This is a well developed, well nourished patient who is awake, alert, sp3 and in no acute distress. Head/Face: Normocephalic, atraumatic. Eyes: Pupils equal round and reactive to light, extra-ocular motions intact. Lids and lashes normal. Conjunctiva and sclera are non-icteric and not injected. Cornea within normal limits. Periorbital areas with no swelling, redness, or edema. Neck: Trachea midline, no thyromegaly or masses palpated, and no cervical lymphadenopathy. Supple, full range of motion without nuchal rigidity, or vertebral point tenderness. No Meningismus. Chest/axilla: Normal chest wall appearance and motion. Nontender with no deformity. No lesions are appreciated. Respiratory: Lungs have equal breath sounds bilaterally, clear to auscultation and percussion. No rales, rhonchi or wheezes noted. No increased work of breathing, no retractions or nasal flaring. Abdomen/GI: Soft, non-tender, with normal bowel sounds. No distension or tympany. No guarding or rebound. No evidence of tenderness throughout. Back: No spinal tenderness. No costovertebral tenderness. Full range of motion. MS/ Extremity: Pulses equal, no cyanosis. Neurovascular intact. Full, normal range of motion. Neuro: Awake and alert, GCS 15, oriented to person, place, time, and situation. Cranial nerves II-XII grossly intact. Motor strength 5/5 in all extremities. Sensory grossly intact. Cerebellar exam normal. Normal gait. Psych: Awake, alert, with orientation to person, place and time. Behavior, mood, and affect are within normal limits. 16:27 Cardiovascular: Rate: tachycardic, 16:27 Skin: 4 cm x 5 cm chronic wound with oozing blood noted with granulation tissue. Wound is on the right buttock. Heart rate now improved.. Vital Signs: 13:45 BP 109 / 80; Pulse 122; Resp 18; Temp 99.2; Pulse Ox 96% on R/A; Weight 30.84 kg; ap3 16:28 BP 108 / 56; Pulse 116; Resp 18; Pulse Ox 100% on R/A; ld1 17:55 BP 121 / 60; Pulse 99; Resp 18; Pulse Ox 98% on R/A; ld1 MDM: 13:49 Medical Screening Exam initiated sp3 16:28 Data reviewed: vital signs, nurses notes, lab test result(s). ED course: 34-year-old sp3 female with chronic wound needing evaluation for bleeding and possible infection. Family is requesting Dr. Kilgore and not Dr. Salazar. They explicitly asked for Dr. Kilgore since he is operated on patient's in the past. Patient will be admitted to the hospital under observation, IV antibiotics started and labs are pending. Patient is a hard stick and we are having to get phlebotomy to draw blood since her port is not active. I discussed the case with Dr. Kilgore who will be consulting on the case.. 17:37 ED course: Dr. Kilgore was consulted by Dr. Ferreira, will see patient and evaluate the corner cutter tonight.. 18:18 Differential diagnosis: Wound infection, bleeding from wound. Counseling: I had a rn detailed discussion with the patient and/or guardian regarding the historical points, exam findings, and any diagnostic results supporting the discharge/admit diagnosis, lab results, the need for further work-up and treatment in the hospital. 18:19 ED course: I personally spent 35 minutes engaged in work directly related to the rn individual patient's care. This does not include any time spent performing procedures. The patient has been deemed critically ill because of severe anemia from bleeding wound requiring blood transfusion, admission to the hospital, IV antibiotics. 10/02 13:50 Order name: Blood Culture Adult (2) sp3 10/02 13:50 Order name: CBC with Diff; Complete Time: 17:27 sp3 10/02 13:50 Order name: CMP; Complete Time: 18:16 sp3 10/02 13:50 Order name: Lactate w/ 2H reflex if indic.; Complete Time: 17:37 sp3 10/02 13:50 Order name: Protime (+inr); Complete Time: 17:27 sp3 10/02 17:27 Order name: Type And Screen rn 10/02 17:38 Order name: Packed RBC Leukored EDMS 10/02 18:36 Order name: Urinalysis w/ reflexes EDMS 10/02 18:36 Order name: Lactate w/ 2H reflex if indic. EDMS 10/02 18:36 Order name: Magnesium EDMS 10/02 18:36 Order name: Phosphorus EDMS 10/02 18:36 Order name: Protime (+INR) EDMS 10/02 18:36 Order name: PTT, Activated Partial Thromb EDMS 10/02 18:36 Order name: Basic Metabolic Panel EDMS 10/02 18:36 Order name: Basic Metabolic Panel EDMS 10/02 18:36 Order name: CBC with Automated Diff EDMS 10/02 18:36 Order name: CBC with Automated Diff EDMS 10/02 18:36 Order name: Lipid Profile EDMS 10/02 18:36 Order name: Lipid Profile EDMS 10/03 04:53 Order name: Lactate w/ 2H reflex if indic. EDMS 10/03 04:59 Order name: Protime (+INR) EDMS 10/03 04:59 Order name: PTT, Activated Partial Thromb EDMS 10/03 05:23 Order name: Phosphorus EDMS 10/03 05:23 Order name: Magnesium EDMS 10/03 12:41 Order name: Glucose, Ancillary Testing EDMS 10/02 13:50 Order name: EKG; Complete Time: 13:50 3 10/02 13:50 Order name: Cardiac monitoring; Complete Time: 16:31 3 10/02 13:50 Order name: EKG - Nurse/Tech; Complete Time: 16:31 3 10/02 13:50 Order name: IV Saline Lock - Large Bore; Complete Time: 17:27 3 10/02 13:50 Order name: Labs collected and sent; Complete Time: 17:27 3 10/02 13:50 Order name: O2 Per Protocol; Complete Time: 16:29 3 10/02 13:50 Order name: O2 Sat Monitoring; Complete Time: 16:29 3 10/02 13:50 Order name: Vital Signs; Complete Time: 17:27 sp3 10/02 17:36 Order name: Transfuse; Complete Time: 21:59 rn Administered Medications: 16:35 Not Given (Physician Discretion): vancomycin1 grams IVPB once over 2 hrs ld1 17:27 Drug: NS 0.9% IV (30 ml/kg) 30 ml/kg IV at bolus once; Sepsis Protocol; to be given as ld1 a bolus over 90 minutes Route: IV; Rate: bolus; Site: left forearm; 20:06 Follow up: Response: No adverse reaction; IV Status: Completed infusion; IV Intake: bm8 925.2ml 17:27 Drug: vancoMYCIN IVPB 500 mg IVPB once over 1 hrs Route: IVPB; Infused Over: 1 hrs; ld1 Site: left forearm; 20:06 Follow up: Response: No adverse reaction; IV Status: Completed infusion; IV Intake: bm8 250ml Disposition Summary: 10/02/24 18:21 Hospitalization Ordered Notes: Hospitalization Status: Inpatient Admission rn Provider: Prince Lianet rn Condition: Stable rn Problem: new rn Symptoms: have improved rn Bed/Room Type: Standard rn Location: Telemetry/MedSurg (Inpatient)(10/03/24 15:50) eb Room Assignment: [facility](10/03/24 15:50) Diagnosis - Anemia, unspecified rn - Decubitus ulcer rn Forms: - Medication Reconciliation Form rn - SBAR form rn - Leadership Thank You 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 Total time: 35 minutes Signatures: Dispatcher [employer] EDJose Cabrera MD MD rn Prokisch, Amanda RN RN dez3 Patti Mares Jenniffer Paiz RN RN ld1 Malachi Ferreira MD MD sp3 Pepper Kidd rv1 Alin Rouse RN bm8 Corrections: (The following items were deleted from the chart) 19:18 18:21 Telemetry/MedSurg (Inpatient) rn rv1 19:18 18:21 rn rv1 10/03 15:50 10/02 19:18 [facility] ER HOLD rv1 eb 10/03 15:50 10/02 19:18 ERHOLD- rv1 eb
[2024-10-02] MEDS ORDERED: ONDANSETRON 4 MG/2 ML VIAL IV PRN (18:31)
--- NOTE | 2024-10-02 18:40 | P.HP ---
Certification for Inpatient Patient admitted to: Inpatient With expected LOS: >2 Midnights Practitioner: I am a practitioner with admitting privileges, knowledge of patient current condition, hospital course, and medical plan of care. Services: Services provided to patient in accordance with Admission requirements found in Title 42 Section 412.3 of the Code of Federal Regulations Patient History Date of Service: 10/02/24 Reason for admission: Bleeding wound cellulitis History of Present Illness: Patient is a 34-year-old female with a past medical history of spina bifida and sacral wounds. Patient sent from wound care clinic for evaluation of uncontrolled bleeding. She has bleeding from her wounds that is manifested by oozing. This has been getting worse. She has had debridement in the past by Dr. Sykes. Associated symptoms include low-grade fever. She is here for surgical evaluation, possibly debridement by general surgery. Dr. Kilgore has been contacted. Allergies adhesive tape Allergy (Mild, Verified 06/27/24 10:38) Rash ketorolac [From Toradol] Allergy (Verified 06/27/24 10:38) Hives Latex, Natural Rubber Allergy (Verified 06/27/24 10:38) Rash Sulfa (Sulfonamide Antibiotics) Allergy (Verified 06/27/24 10:38) Hives/Rash sulfamethoxazole [From Bactrim] Allergy (Verified 06/27/24 10:38) Hives trimethoprim [From Bactrim] Allergy (Verified 06/27/24 10:38) Hives vancomycin Allergy (Verified 06/27/24 10:38) Hives/Rash Adhesives Allergy (Mild, Uncoded 06/27/24 10:38) Rash Home Medications: Oxycodone HCl/Acetaminophen [Oxycodone-Acetaminophen 10-325] 10 - 325 mg PO Q6HP PRN 10/06/22 Carvedilol [Coreg] 12.5 mg PO TID 06/27/24 - Past Medical/Surgical History Diabetic: No -: Stage 4 decubitus ulcer -: Spina Bifida -: MRSA -: scoliosis -: HTN -: GERD -: Osteomyelitis -: Recurrent UTI -: Multiple back surgeries -: Right great toe amputated -: bowel surgery cecostomy -: Suprapubic stoma -: 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 Psychosocial/ Personal History: Patient lives at home - Family History Mother -: Hypertension, Diabetes, Other (see notes) Notes: Lupus Father -: Hypertension, Diabetes Notes: Hyperlipidemia - Social History Alcohol use: No CD- Drugs: No Caffeine use: No Physical Examination - Physical Exam General: In no apparent distress HEENT: Atraumatic, Normocephalic Respiratory: Clear to auscultation bilaterally, Normal air movement Cardiovascular: No edema, Normal pulses, Regular rate/rhythm, Normal S1 S2 Neurological: Normal speech - Studies Laboratory Data (last 24 hrs) 10/02/24 10/02/24 10/02/24 17:06 17:06 17:06 WBC 7.80 Hgb 6.0 L Hct 19.4 L Plt Count 427 H PT 18.0 H INR 1.62 Sodium 136 Potassium 3.3 L BUN 7 Creatinine 0.39 L Glucose 120 H Total Bilirubin < 0.2 L AST 13 L ALT < 14 Alkaline Phosphatase 171 H Assessment and Plan - Problems (Diagnosis) (1) Acute blood loss anemia (ABLA) Current Visit: Yes Status: Acute (2) Hypokalemia Current Visit: No Status: Acute (3) Intermittent self-catheterization of bladder Current Visit: No Status: Acute (4) Pressure ulcer of ischial area, stage 4 Onset Date: 06/01/17 Current Visit: No Status: Acute (5) Hypertension Onset Date: 06/01/17 Current Visit: No Status: Chronic (6) GERD (gastroesophageal reflux disease) Current Visit: No Status: Suspected - Plan Assessment 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 She is being admitted after she was sent from wound care clinic by Dr. Barber for evaluation of the bleeding wounds. These wounds have been debrided in the past by Dr. Sykes but they continue to ooze. While in the clinic, the bleeding could not be controlled entirely. Patient is sent here for surgical evaluation including possible debridement. Patient arrived with a hemoglobin of 6.0. Bleeding wound cellulitis Acute blood loss anemia Hypokalemia Spina bifida Neurogenic bladder with intermittent straight cath Sacral wounds Plan: Will admit inpatient with IV antibiotics. Will treat with vancomycin and cefepime General Surgery consulted for possible debridement Transfuse a unit of packed RBC due to acute blood loss anemia Potassium replacement SCDs for DVT prophylaxis Resume rest of home medication upon reconciliation - Advance Directives Does patient have a Living Will: No Does patient have a Durable POA for Healthcare: No
[2024-10-02] MEDS: POTASSIUM 25 MEQ EFFERV TAB PO ONE (19:00)
[2024-10-02] MEDS ORDERED: POTASSIUM 25 MEQ EFFERV TAB ONE (19:38)
[2024-10-02] MEDS: NA CHLORIDE 0.9% 1,000 ML IV SCH (20:04)
[2024-10-02] MEDS: POTASSIUM CL SA 10 MEQ TAB PO ONE (20:04)
[2024-10-02] MEDS ORDERED: POTASSIUM CL SA 10 MEQ TAB PO ONE (20:51)
[2024-10-02] MEDS ORDERED: VANCOMYCIN 1.5 GM in NA CHLORIDE 0.9% 500 ML IVPB SCH (21:00)
[2024-10-02] MEDS: CEFEPIME 2 GM in NA CHLORIDE 0.9% 100 ML IV SCH (21:00)
[2024-10-02] MEDS ORDERED: CEFEPIME 2 GM VIAL ONE (22:43)
[2024-10-03 04:45] LABS: Absolute Basophils 0.1 K/uL (0-0.5); Absolute Eosinophils 0.1 K/uL (0-0.5); Absolute Lymphocytes (CBC) 1.9 K/uL (0.7-4.9); Absolute Monocytes 0.8 K/uL (0.1-1.3); Absolute Neutrophil 5.9 K/uL (1.8-8.0); Basophils % 0.6 % (0-1.3); Eosinophils % 0.7 % (0-4.4); Hematocrit 33.9 % (36.0-45.0); Hemoglobin 11.4 g/dL (12.0-15.0); Lymphocytes % 21.7 % (15.3-44.8); MCH 27.6 pg (27.0-35.0); MCHC 33.6 g/dL (32.0-36.0); MPV 7.4 fL (7.6-11.3); Monocytes % 8.9 % (3.3-12.3); Neutrophils % 68.1 % (41.7-73.7); Nucleated Red Blood Cells % 0.1 % (0-0); Platelets 332 thou/uL (152-406); RBC Red Blood Cell Count 4.13 M/uL (3.86-4.86); Red Cell Distribution Width 16.5 % (12.1-15.2)
[2024-10-03 04:52] LABS: Anion Gap 8.3 mEq/L (5.0-15.0); Magnesium 1.9 mg/dL (1.6-2.4); Phosphorus 2.9 mg/dL (2.5-4.9); Potassium 4.3 mEq/L (3.5-5.1)
[2024-10-03 04:59] LABS: PTT, Activated Partial Thromb 33.7 SECONDS (24.3-36.9); Protime INR 1.33
[2024-10-03] MEDS: HYDROMORPHONE HCL 1 MG/ML INJ IV ONE ×2 (05:02→10:17)
[2024-10-03] MEDS: FLU (Fluarix Triv) TS24-25(6MOS UP)/PF 45 MCG/0.5 ML Syringe IM ONE (07:15)
[2024-10-03] MEDS ORDERED: VANCOMYCIN 500 MG/VIAL ONE (08:19)
[2024-10-03] MEDS ORDERED: NA CHLORIDE 0.9% 100 ML ONE (08:19)
[2024-10-03] MEDS ORDERED: FLU (Fluarix Triv) TS24-25(6MOS UP)/PF 45 MCG/0.5 ML Syringe IM ONE (08:19)
[2024-10-03] MEDS ORDERED: NA CHLORIDE 0.9% 250 ML ONE (08:19)
[2024-10-03] MEDS ORDERED: CEFEPIME 2 GM VIAL ONE (08:19)
[2024-10-03] MEDS ORDERED: HYDROMORPHONE HCL 1 MG/ML INJ ONE (10:18)
[2024-10-03] MEDS ORDERED: NA CHLORIDE 0.9% 1,000 ML ONE (14:31)
--- NOTE | 2024-10-03 18:48 | CON ---
Date of Consultation: 10/03/2024 Reason For Service: Sacral wound decubitus ulcer. History Of Present Illness: This is a case of a 34-year-old patient, sent to ER by the [facility] doctor and I was consulted due to the chronic history of sacral ulcer with exposed bone and the patient's boyfriend/ asked me to see if I can come and continue with the care. On trying to get information from this chart, I remember seeing this patient a long time ago. She has been judie gonzalez in another clinic, so I do not have all the information on her. I just noticed the patient bleed s now and then and when we explore and investigate the wound, there are some pieces of bone, even the person family seen it. He has been removing some pieces of the bone of that area and that somehow w as eroding and leaving sharp areas behind. She has history of spina bifida with multiple contracture s. Allergies: TORADOL, LATEX, SULFA, VANCOMYCIN. Medications: Oxycodone. Past Medical History: Include stage IV decubitus ulcers with MRSA, recurrent UTI, history of osteomy elitis. 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 Family History: Includes diabetes and hypertension. Social History: She does not smoke. She does not drink alcohol. Review of Systems: No shortness of breath. No chest pain. No fever. Just on and off bleeding from the area of the wou nd with exposed bone. Physical Examination: General: The patient is awake, alert. No distress. She is communicative and very good spirit. HEENT: Pupils are equal and reactive. Respiratory: Bilateral breath sounds. Abdomen: Soft and depressible. Extremities: Multiple contractions, but good capillary refill. Integumentary: Shows stage IV sacral ulcer. There is bone exposed, looked like that has pieces of b one missing, this is leaving sharp edges and with her moving back and forth is doing a stabbing react ion and injured the tissues around. Blood Work: Reviewed. Laboratory Data: WBC count of 8.7, hemoglobin of 11.4. Plan: We need to understand the area little bit better. I believe the x-ray and the MRI may show so me light on the condition of that bone. The say he is keeping removing the pieces of that. I palpated clear bone in that area which clinically is consistent with osteomyelitis. We would like to have an infectious disease consult. We explained to them the importance of nutrition, the importa nce of offloading that area, but at the same time with this kind of condition, we might have to make sure that we have offloading of that area. From the surgical standpoint, once we have the imaging av ailable, then we have a better understanding of what is going on with that bone and may take her to s urgery and do debridement. If that bone is so sharp, we might have to file that bone, but first, we will have to make sure that chapa looking like that and the x-ray and the MRI may guide me a little bi t better and do the proper debridement, so in the meantime, we are going to call ID for proper IV ant ibiotics for osteomyelitis. ADITHYA/MODL Voice ID: [id number] Report ID: [id number]
--- NOTE | 2024-10-03 19:36 | P.PN ---
Subjective Date of Service: 10/03/24 Chief Complaint: Bleeding wound cellulitis No complaints Review of Systems 10-point ROS is otherwise unremarkable Physical Examination - Vital Signs Temperature: 99.6 F Blood Pressure: 117/71 Pulse: 98 Respirations: 20 Pulse Ox (%): 98 - Physical Exam General: Alert, Oriented x3 HEENT: Atraumatic Neck: Supple Respiratory: Clear to auscultation bilaterally Cardiovascular: No edema Gastrointestinal: Normal bowel sounds Musculoskeletal: No clubbing, No swelling, No contractures Neurological: Normal gait, Normal speech, Normal tone Assessment And Plan - Plan 1. Left hip osteomyelitis -Discussed with general surgeon, , ordered x-ray of the left hip and MRI for further evaluation -Continue empiric IV antibiotics -Await further recommendation from general surgeon regarding possible debridement 2. Chronic blood loss anemia, from bleeding at the left hip -Hemoglobin of 6.4 on admission - transfused 2 units of PRBCs 3. Functional quadriplegia secondary to spina bifida 4. DVT prophylaxis -SCDs
--- NOTE | 2024-10-03 20:44 | RAD REPORT ---
EXAMINATION: Hip Left 2 View CLINICAL INDICATION: Female, 34 years old. Evaluate for osteomyelitis COMPARISON: No prior exam. FINDINGS: Left proximal femur fracture which may be intertrochanteric . It is not well assessed based on the po sitioning. The proximal femur metadiaphysis is thinned. Remote distal femur fracture that is only partially imaged. IMPRESSION: Left intertrochanteric hip fracture which is not well assessed due to positioning.. No overt evidence of osteomyelitis but consider MRI or three-phase bone scan.
[2024-10-03] MEDS: Oxycodone HCl/Acetaminophen 5/325 MG TAB PO ONE (21:09)
[2024-10-04 06:15] LABS: Specific Gravity 1.009 (1.005-1.030); Urine Bilirubin NEGATIVE (Negative); Urine Blood Negative (Negative); Urine Clarity Clear (Clear); Urine Color Colorless (Yellow); Urine Glucose NEGATIVE (Negative); Urine Ketones NEGATIVE (Negative); Urine Microscopic Reflex YN NO UMIC; Urine Nitrite NEGATIVE (Negative); Urine Protein NEGATIVE (Negative); Urine Urobilinogen Normal (Normal); Urine pH 6.5 (5.0-7.0)
[2024-10-04 08:30] LABS: Anion Gap 7.3 mEq/L (5.0-15.0); Potassium 3.3 mEq/L (3.5-5.1)
[2024-10-04 08:31] LABS: Absolute Eosinophils 0.1 K/uL (0-0.5); Absolute Monocytes 0.5 K/uL (0.1-1.3); Absolute Neutrophil 5.8 K/uL (1.8-8.0); Basophils % 0.5 % (0-1.3); Eosinophils % 1.2 % (0-4.4); Hematocrit 34.8 % (36.0-45.0); Hemoglobin 11.1 g/dL (12.0-15.0); Lymphocytes % 13.1 % (15.3-44.8); MCHC 31.9 g/dL (32.0-36.0); MCV 84.6 fL (80-100); MPV 7.1 fL (7.6-11.3); Monocytes % 7.2 % (3.3-12.3); Nucleated Red Blood Cells % 0.1 % (0-0); Platelets 284 thou/uL (152-406); RBC Red Blood Cell Count 4.12 M/uL (3.86-4.86); Red Cell Distribution Width 16.7 % (12.1-15.2)
--- NOTE | 2024-10-04 11:08 | P.PN ---
Subjective Date of Service: 10/04/24 Chief Complaint: Bleeding wound cellulitis Subjective: No chest pain or shortness of breath. No nausea or vomiting. No abdominal pain. No obvious bleeding other than bleeding from the wound. Looks comfortable in the bed. c/o back/ hip pain Objective: General appearance: Alert and comfortable CVS: Normal S1 and S2 Lungs: Clear to auscultation bilaterally Abdomen: Soft, bowel sounds present, no tenderness Extremities: pedal edema difficult to eval due to body habitus Hip: difficult to exam as she is quadriplegic and doesn't move Physical Examination - Vital Signs Temperature: 98.9 F Blood Pressure: 136/83 Pulse: 91 Respirations: 14 Pulse Ox (%): 100 - Studies 10/02/24 17:40: ABO/Rh A NEGATIVE, Solid Phase Ab Screen Negative, Crossmatch See Detail Assessment And Plan - Plan Assessment and Plan: Labs reviewed 1. Left hip osteomyelitis -general surgeon, is on board, x-ray of the left hip showed ?fracture, MRI pending -Continue empiric IV antibiotics -Await further recommendation from general surgeon regarding possible debridement -will Request ID consult. 2. Chronic blood loss anemia, from bleeding at the left hip -Hemoglobin of 6.4 on admission - transfused 2 units of PRBCs -HemoGlobin better after blood transfusion 3. Functional quadriplegia secondary to spina bifida 4. Hypokalemia: Replace and monitor. DVT prophylaxis-SCDs Plan discussed with the patient, answered all questions.
[2024-10-04] MEDS: POTASSIUM CL SA 10 MEQ TAB PO ONE ×3 (11:13→18:46)
[2024-10-04] MEDS: OXYCODONE HCL 5 MG TAB PO PRN (11:39)
[2024-10-04] MEDS: VANCOMYCIN 500 MG in NA CHLORIDE 0.9% 100 ML IVPB SCH (17:41)
[2024-10-04] MEDS: Oxycodone HCl/Acetaminophen 5/325 MG TAB PO PRN (17:41)
[2024-10-05] MEDS: NA CHLORIDE 0.9% 500 ML IV ONE (07:46)
[2024-10-05 08:14] LABS: Absolute Basophils 0.1 K/uL (0-0.5); Absolute Eosinophils 0.1 K/uL (0-0.5); Absolute Lymphocytes (CBC) 1.1 K/uL (0.7-4.9); Absolute Monocytes 0.5 K/uL (0.1-1.3); Absolute Neutrophil 4.5 K/uL (1.8-8.0); Basophils % 0.8 % (0-1.3); Hemoglobin 10.9 g/dL (12.0-15.0); Lymphocytes % 17.7 % (15.3-44.8); MCH 27.2 pg (27.0-35.0); MCHC 32.2 g/dL (32.0-36.0); MCV 84.6 fL (80-100); MPV 7.2 fL (7.6-11.3); Monocytes % 7.9 % (3.3-12.3); Neutrophils % 71.6 % (41.7-73.7); Nucleated Red Blood Cells % 0.1 % (0-0); Platelets 307 thou/uL (152-406); RBC Red Blood Cell Count 4.02 M/uL (3.86-4.86); Red Cell Distribution Width 16.9 % (12.1-15.2)
[2024-10-05 08:32] LABS: Anion Gap 8.5 mEq/L (5.0-15.0); BUN Blood Urea Nitrogen 5 mg/dL (7-18); Bicarbonate 23 mEq/L (21-32); Glucose Level 92 mg/dL (74-106); Potassium 4.5 mEq/L (3.5-5.1); Sodium Level 138 mEq/L (136-145)
[2024-10-05 09:08] LABS: Glomerular Filtration Rate 151 ml/min (=/>90)
--- NOTE | 2024-10-05 13:09 | P.PN ---
Subjective Date of Service: 10/05/24 Chief Complaint: Bleeding wound cellulitis Subjective: No chest pain or shortness of breath. No nausea or vomiting. No abdominal pain. No obvious bleeding other than bleeding from the wound. Looks comfortable in the bed. c/o back/ hip pain Objective: General appearance: Alert and comfortable CVS: Normal S1 and S2 Lungs: Clear to auscultation bilaterally Abdomen: Soft, bowel sounds present, no tenderness Extremities: pedal edema difficult to eval due to body habitus Hip: difficult to exam as she is quadriplegic and doesn't move, I tried again today but she wan't able to ritate Physical Examination - Vital Signs Temperature: 98.6 F Blood Pressure: 127/84 Pulse: 91 Respirations: 18 Pulse Ox (%): 94 Assessment And Plan - Plan Assessment and Plan: Labs reviewed 1. Left hip osteomyelitis -general surgeon, is on board, x-ray of the left hip showed ?fracture, MRI pending -Continue empiric IV antibiotics -Await further recommendation from general surgeon regarding possible debridement -Requested ID consult. -Wheelchair bound at baseline 2. Chronic blood loss anemia, from bleeding at the left hip -Hemoglobin of 6.4 on admission - transfused 2 units of PRBCs -HemoGlobin better after blood transfusion 3. Functional quadriplegia secondary to spina bifida 4. Hypokalemia: Replaced, monitor. DVT prophylaxis-Start lovenox for now as hgb stable Plan discussed with the patient, answered all questions. d/w CHATA
[2024-10-05] MEDS: ENOXAPARIN 40 MG/0.4 ML SQ SCH (14:51)
[2024-10-05] MEDS: VANCOMYCIN 500 MG in NA CHLORIDE 0.9% 100 ML IVPB SCH (16:41)
[2024-10-06] MEDS: HYDROMORPHONE HCL 1 MG/ML INJ IV ONE (00:38)
[2024-10-06 08:19] LABS: Absolute Basophils 0.1 K/uL (0-0.5); Absolute Eosinophils 0.1 K/uL (0-0.5); Absolute Lymphocytes (CBC) 1.2 K/uL (0.7-4.9); Absolute Monocytes 0.4 K/uL (0.1-1.3); Absolute Neutrophil 3.2 K/uL (1.8-8.0); Anion Gap 10.8 mEq/L (5.0-15.0); BUN Blood Urea Nitrogen 6 mg/dL (7-18); Basophils % 1.1 % (0-1.3); Bicarbonate 21 mEq/L (21-32); Eosinophils % 2.2 % (0-4.4); Glucose Level 79 mg/dL (74-106); Hematocrit 34.2 % (36.0-45.0); Hemoglobin 11.3 g/dL (12.0-15.0); Lymphocytes % 23.8 % (15.3-44.8); MCH 27.5 pg (27.0-35.0); MCV 83.3 fL (80-100); MPV 7.7 fL (7.6-11.3); Monocytes % 8.4 % (3.3-12.3); Neutrophils % 64.5 % (41.7-73.7); Nucleated Red Blood Cells % 0.3 % (0-0); Platelets 294 thou/uL (152-406); Potassium 3.8 mEq/L (3.5-5.1); RBC Red Blood Cell Count 4.11 M/uL (3.86-4.86); Red Cell Distribution Width 17.2 % (12.1-15.2); Sodium Level 138 mEq/L (136-145)
[2024-10-06 08:22] LABS: Glomerular Filtration Rate 151 ml/min (=/>90)
[2024-10-06] MEDS: LORazepam 2 MG/ML VIAL IV ONE (11:51)
--- NOTE | 2024-10-06 13:50 | P.BOP ---
Preoperative diagnosis: Left ischium bleeding chronic pressure ulcer, femur fracture Postoperative diagnosis: same Primary procedure: EXcisional debridement down to bone Left ischium chronic pressure Secondary procedure: [id number] Estimated blood loss: <10c Specimen: devitalized tissue Findings: wound with displaced femur fracture, bleeding from granulation. Ortho cons Anesthesia: none Complications: None Drain(s): Other (wet to dry) Transferred to: Recovery Room Condition: Good
[2024-10-06] MEDS: HYDROMORPHONE HCL 0.5 MG/0.5 ML INJ ONE (14:02)
[2024-10-06] MEDS: ENSURE ENLIVE 237 ML CAN PO SCH (21:00)
[2024-10-06] MEDS: JUVEN PACKET PO SCH (21:00)
[2024-10-07 09:02] LABS: Absolute Eosinophils 0.1 K/uL (0-0.5); Hematocrit 28.5 % (36.0-45.0); Hemoglobin 9.1 g/dL (12.0-15.0); MCHC 32.1 g/dL (32.0-36.0); MCV 84.1 fL (80-100); MPV 7.3 fL (7.6-11.3); Nucleated Red Blood Cells % 0.1 % (0-0); Platelets 263 thou/uL (152-406); RBC Red Blood Cell Count 3.39 M/uL (3.86-4.86); Red Cell Distribution Width 17.1 % (12.1-15.2)
[2024-10-07 09:06] LABS: Anion Gap 10.3 mEq/L (5.0-15.0); BUN Blood Urea Nitrogen 6 mg/dL (7-18); Bicarbonate 20 mEq/L (21-32); Glucose Level 99 mg/dL (74-106); Potassium 3.3 mEq/L (3.5-5.1); Sodium Level 140 mEq/L (136-145)
[2024-10-07 09:10] LABS: Glomerular Filtration Rate 151 ml/min (=/>90)
[2024-10-07 09:57] LABS: Absolute Lymphocytes (CBC) 0.9 K/uL (0.7-4.9); Absolute Neutrophil 3.9 K/uL (1.8-8.0)
[2024-10-07 09:58] LABS: Absolute Monocytes 0.4 K/uL (0.1-1.3)
--- NOTE | 2024-10-07 12:40 | PN ---
Date of Progress Note: 10/07/2024 Diagnosis: Ischial ulcer with osteomyelitis and femur fracture. The patient is doing great. She was taken yesterday for a wound exploration. We noticed that there is the proximal part of the femur sticking out through the wound. In the distal part, which is the s haft of the femur is broken and the edges are not smoothed, so causing a bleeding by the small punctu re. So we are trying to smooth out that area until Orthopedics can take a look at her and decide if the permanent fix of this which may require removing part of the femur, even the head of the femur. The Infectious Disease is involved in the case too and we are trying to see once we do the orthopedic surgery which is planned for Sunday, and then we can just reorganize again and most likely she is go ing to end up with the long-term antibiotics and even a wound VAC, but at least there is going to be a better chance of healing. She is excited about the plan and I just discussed the case with the Ort hopediarmand, Dr. Horvath; and also an ID, Dr. Ibarra. ADITHYA/TENZIN Voice ID: [id number] Report ID: [id number]
--- NOTE | 2024-10-07 17:14 | CON ---
Date of Consultation: 10/05/2024 History Of Present Illness: The patient was seen by me in the Wound Care Clinic, where she was found to have excessive bleeding from her left hip wound. She was sent to the emergency room. The patien neena preferred to come to the [facility], as she knows the surgeons over here. The patie jackie has significant past medical history of spina bifida with left hip wound because of her spinal pos ition the patient likes to stay on her left hip. The patient denies any headache, nausea, vomiting, chest pain, abdominal pain, constipation, diarrhea, chronic left trochanter wound stage IV with exces sive bleeding, currently being controlled with pressure dressing. 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 Social History: Nonsmoker, nondrinker. Family History: Hypertension, diabetes mellitus. Medications: Include cefepime and vancomycin. See MARs for other medications. Allergies: INCLUDE SULFA DRUGS, TORADOL, LASIX, LATEX, AND NATURAL RUBBER. Review of Systems: A 10-point review was performed. Physical Examination: General: The patient lying in bed, not in any acute cardiopulmonary distress. Vital Signs: Temperature 98.6, pulse 90, respirations 18, blood pressure 119/77. HEENT: Unremarkable. Neck: Supple. Lungs: Basal crackles. Heart: S1, S2. Regular. Abdomen: Soft, nontender. Bowel sounds present. Extremities: Muscle wasting noted and left hip wound noted. Laboratory Data: Shows WBC 6.2, hemoglobin 10.9, platelets are 307. On initial arrival, the patient 's hemoglobin was 6 after which she was given transfusion. Chemistry shows BUN of 5, creatinine 0.25 . Urinalysis is negative. Blood cultures were negative to date and leg wound culture is negative al so to date. Assessment And Plan: This is a 34-year-old female seen by me in the Wound Care Clinic and found to h ave a stage IV wound, which was bleeding excessively at the left trochanter area. The patient was se nt to the hospital for further evaluation and was found to have low hemoglobin and got transfusion, i s being evaluated by surgical team for possible removal of hip bone involving the left femur head and part of the proximal femur to prevent further bleeding, anemia of chronic disease superimposed with excessive bleeding, history of spina bifida, stage IV left trochanter wound. Continue wound care per surgical team while in the hospital. Continue current treatment with vancomycin and cefepime. We w ill continue to monitor. Thank you for consult, Dr. Carlos. We will follow the patient as needed. NF/MODL Voice ID: [id number] Report ID: [id number]
--- NOTE | 2024-10-07 17:19 | PN ---
Subjective: Patient lying in bed. Denies any new problems since admission. Currently, on IV antib iotics including vancomycin and cefepime. Per surgical team, patient continued to have osteomyelitis in the left trochanter area causing separation at the femur neck and a protruding bone which is caus ing bleeding as patient likes to lay on her left side because of her spine curvature. Objective: Vital Signs: Temperature 98, pulse 130, respirations 14, blood pressure 135/87. Lungs: Basal crackles. Heart: S1, S2. Regular. Abdomen: Soft, nontender. Bowel sounds present. Extremities: Trace edema. Wound noted. Laboratory Data: Shows WBC 5.5, hemoglobin 9.1, platelets are 263. Chemistry shows BUN of 6, creati nine 0.25. Blood cultures are negative to date. Wound cultures are pending. Assessment And Plan: Left trochanter stage IV wound with the fracture of femur at the neck region ca using sharp protrusion of femur into soft tissue and possible bleeding. Plan is for orthopedic surgi jose team to go in and remove the femur neck and surgical team to also go in and repair the damaged ti ssue and possible removal of proximal femur. Anemia of chronic disease superimposed with acute bleed ing. Continue current treatment. We will follow the patient closely and monitor patient for signs o f infection with WBC and fever trends. NF/MODL Voice ID: [id number] Report ID: [id number]
--- NOTE | 2024-10-08 01:15 | CON ---
Date of Consultation: 10/07/2024 I have not seen this patient before to my knowledge. She is a 34-year-old female who unfortunately h as a history of spina bifida. She is being treated by general surgeon, Dr. Kilgore, who took her to the operating room for some bleeding from an ulcerated wound. While he was debriding this wound, he noted that there appeared to be prominent bone in this area and he thought that the bone would make healing this extremely difficult, if not impossible. X-ray was performed, which demonstrated a fract ure of the femur, which appears to be extremely old. He consulted me and he feels that it would be h elpful to be able to clear this bone from the wound area. On physical examination, this wound is well covered. There is no sign of erythema. She does not hav e any constitutional symptoms. She does not appear to have any active bleeding, or active sepsis or infectious process. Review of x-rays revealed a comminuted fracture of the femur on the left, which could be intertrochan teric or could be a little higher. The hip is located, but very thin. Assessment: Left proximal femur fracture with probable protrusion of bone through a nonhealing wound . After discussion with Dr. Kilgore as well as the patient, I think the best plan would be for ryan alexi of proximal femur as by definition of this is exposed bone through this open wound as there is os teomyelitis. The femur is nonfunctional and she is insensate from the waist below. Most likely, we do this through a secondary incision. Discussed risks, benefits, and alternatives with both the brandon ent and the family. We will probably plan on doing this on Sunday and also speak with Dr. Kilgore regarding this. /TENZIN Voice ID: [id number] Report ID: [id number]
[2024-10-08 04:43] LABS: Absolute Eosinophils 0.1 K/uL (0-0.5); Absolute Lymphocytes (CBC) 1.9 K/uL (0.7-4.9); Absolute Monocytes 0.3 K/uL (0.1-1.3); Absolute Neutrophil 2.8 K/uL (1.8-8.0); Basophils % 0.7 % (0-1.3); Eosinophils % 2.7 % (0-4.4); Hematocrit 25.1 % (36.0-45.0); Hemoglobin 7.9 g/dL (12.0-15.0); Lymphocytes % 36.6 % (15.3-44.8); MCH 26.6 pg (27.0-35.0); MCHC 31.7 g/dL (32.0-36.0); MCV 83.9 fL (80-100); MPV 7.2 fL (7.6-11.3); Monocytes % 5.6 % (3.3-12.3); Neutrophils % 54.4 % (41.7-73.7); Nucleated Red Blood Cells % 0.1 % (0-0); Platelets 264 thou/uL (152-406); RBC Red Blood Cell Count 2.99 M/uL (3.86-4.86); Red Cell Distribution Width 16.8 % (12.1-15.2)
[2024-10-08 04:59] LABS: Anion Gap 9.4 mEq/L (5.0-15.0); BUN Blood Urea Nitrogen 6 mg/dL (7-18); Bicarbonate 21 mEq/L (21-32); Glucose Level 97 mg/dL (74-106); Potassium 3.4 mEq/L (3.5-5.1); Sodium Level 141 mEq/L (136-145)
[2024-10-08 05:09] LABS: Glomerular Filtration Rate 151 ml/min (=/>90)
[2024-10-08] MEDS: POTASSIUM 25 MEQ EFFERV TAB PO ONE (07:50)
[2024-10-08] MEDS ORDERED: POTASSIUM 25 MEQ EFFERV TAB PO ONE (09:00)
[2024-10-08] MEDS: POTASSIUM CL SA 10 MEQ TAB PO ONE (09:16)
[2024-10-08] MEDS: MORPHINE 4 MG/ML SYR IV PRN (14:40)
--- NOTE | 2024-10-08 15:00 | PN ---
Subjective: The patient lying in bed. No new acute event. Chart reviewed. Objective: Vital Signs: Temperature 99, pulse 95, respirations 16, blood pressure 142/91. Lungs: Basal crackles. Heart: S1, S2, regular. Abdomen: Soft, nontender. Bowel sounds present. Extremities: Left trochanteric wound noted, continued to have bleeding. Lab Data: Hemoglobin down to 7.9 with normal white blood cell count. Chemistry shows BUN of 6, crea tinine 0.25, currently the patient on vancomycin and cefepime. Assessment And Plan: Left trochanter stage IV wound with bleeding secondary to broken femur. Awaiti ng surgical correction. Concern regarding low hemoglobin. Monitor CBC closely, and if needed, get b lood transfusion before surgery. Continue supportive care and wound care. Anemia of chronic on acut e. Osteomyelitis of left trochanter and proximal femur. We will follow the patient closely. NF/MODL Voice ID: [id number] Report ID: [id number]
[2024-10-08] MEDS: VANCOMYCIN 0.75 GM in NA CHLORIDE 0.9% 150 ML IVPB SCH (16:15)
--- NOTE | 2024-10-08 17:55 | P.PN ---
Subjective Date of Service: 10/08/24 Chief Complaint: Bleeding wound cellulitis Admitted for nonhealing sacral ulcer, during debridement, x-ray shows comminuted fracture of the femur, plan for surgery on Sunday <Linnea Mata - Last Filed: 10/08/24 18:05> Date of Service: 10/08/24 <Fern Ivory - Last Filed: 10/14/24 05:56> Review of Systems 10-point ROS is otherwise unremarkable <Linnea Mata - Last Filed: 10/08/24 18:05> Physical Examination - Vital Signs Temperature: 99.3 F Blood Pressure: 137/88 Pulse: 115 Respirations: 16 Pulse Ox (%): 100 - Physical Exam General: Alert, Oriented x3 HEENT: Atraumatic, Normocephalic Neck: Supple Respiratory: Normal air movement, Diminished Cardiovascular: Normal pulses, Regular rate/rhythm Gastrointestinal: Normal bowel sounds, Soft and benign Musculoskeletal: Scoliosis, Other (Diffuse disfigurement) Integumentary: Other (Diffuse) Neurological: Normal speech, Abnormal gait, Abnormal strength - Studies Microbiology Data (last 24 hrs): 10/02/24 16:58 Blood - Blood Aerobic Blood Culture - Final No growth in 5 days. 10/02/24 16:58 Blood - Blood Anaerobic Blood Culture - Final No growth in 5 days. 10/02/24 17:06 Blood - Blood Aerobic Blood Culture - Final No growth in 5 days. 10/02/24 17:06 Blood - Blood Anaerobic Blood Culture - Final No growth in 5 days. <Linnea Mata - Last Filed: 10/08/24 18:05> Assessment And Plan - Plan - Plan Assessment and Plan: 1. Left hip osteomyelitis -general surgeon, is on board, x-ray of the left hip showed ?fracture, MRI pending -Continue empiric IV antibiotics -Await further recommendation from general surgeon regarding possible debridement - ID consult. 2. Chronic blood loss anemia, from bleeding at the left hip -Hemoglobin of 6.4 on admission - transfused 2 units of PRBCs -HemoGlobin better after blood transfusion 3. Functional quadriplegia secondary to spina bifida 4. Hypokalemia: Replace and monitor. DVT prophylaxis-SCDs - Code Status/Comfort Care Code Status: Full Code Critical Care: No Time Spent Managing PTS Care (In Minutes): 35 <Linnea Mata - Last Filed: 10/08/24 18:05> Date of Service: 10/08/24 Chart has been reviewed. Events of the last 24 hours have been noted. Case discussed with [facility]. I performed a substantial part of the MDM during this patient's care today. I personally made or approved the documented management plan and acknowledge its risk of complications. I agree with the findings and documentation provided in the [facility]'s notes <Fern Ivory - Last Filed: 10/14/24 05:56>
[2024-10-08] MEDS ORDERED: NA CHLORIDE 0.9% 250 ML IV SCH (18:00)
[2024-10-09] MEDS: NA CHLORIDE 0.9% 1,000 ML IV SCH (11:12)
[2024-10-09] MEDS: POTASSIUM 25 MEQ EFFERV TAB PO ONE (11:30)
--- NOTE | 2024-10-09 14:31 | P.PN ---
Date of Service: 10/09/24 Subjective HH 7.9, I unit PRBC ordered, no active bleeding, trend HH Plan for n.p.o. overnight for orthopedic surgery in the a.m. Review of Systems 10-point ROS is otherwise unremarkable Physical Examination - Vital Signs reviewed - Physical Exam General: Alert, Oriented x3 HEENT: Atraumatic, Normocephalic Neck: Supple Respiratory: Normal air movement, unlabored Cardiovascular: Normal pulses, Regular rate/rhythm Gastrointestinal: Normal bowel sounds, nontender Musculoskeletal: Scoliosis, Other (Diffuse disfigurement) Integumentary: Other (Diffuse) Neurological: Normal speech, Abnormal gait, Abnormal strength - Studies Microbiology Data (last 24 hrs): 10/02/24 16:58 Blood - Blood Aerobic Blood Culture - Final No growth in 5 days. 10/02/24 16:58 Blood - Blood Anaerobic Blood Culture - Final No growth in 5 days. 10/02/24 17:06 Blood - Blood Aerobic Blood Culture - Final No growth in 5 days. 10/02/24 17:06 Blood - Blood Anaerobic Blood Culture - Final No growth in 5 days. Assessment And Plan - Plan Assessment and Plan: 1. Left hip osteomyelitis -general surgeon, is on board, x-ray of the left hip showed ?f racture, MRI pending -Continue empiric IV antibiotics -Await further recommendation from general surgeon regarding possible debridement - ID consult. 2. Chronic blood loss anemia, from bleeding at the left hip -Hemoglobin of 6.4 on admission - transfused 2 units of PRBCs -HemoGlobin better after blood transfusion 3. Functional quadriplegia secondary to spina bifida 4. scoliosis 5. Hypokalemia: Trend electrolytes, replace as needed DVT prophylaxis-SCDs - Code Status/Comfort Care Code Status: Full Code Critical Care: No Time Spent Managing PTS Care (In Minutes): 35 <Linnea Mata - Last Filed: 10/11/24 07:45> Chart has been reviewed. Events of the last 24 hours have been noted. Case discussed with [facility]. I performed a substantial part of the MDM during this patien t's care today. I personally made or approved the documented management plan and acknowledge its risk of complications. I agree with the findings and documentation provided in the [facility]'s notes <Fern Ivory - Last Filed: 10/14/24 05:56>
[2024-10-10 06:24] LABS: ALT/SGPT < 14 U/L (13-56); AST/SGOT 19 U/L (15-37); Albumin 1.3 g/dL (3.4-5.0); Albumin/Globulin Ratio 0.4 (1.1-1.8); Alkaline Phosphatase 156 U/L (45-117); Anion Gap 10.4 mEq/L (5.0-15.0); BUN Blood Urea Nitrogen 4 mg/dL (7-18); Bicarbonate 23 mEq/L (21-32); Bilirubin Total 0.2 mg/dL (0.2-1.0); Globulin 3.7 g/dL (2.3-3.5); Glomerular Filtration Rate 151 ml/min (=/>90); Glucose Level 98 mg/dL (74-106); Magnesium 1.6 mg/dL (1.6-2.4); Potassium 3.4 mEq/L (3.5-5.1); Sodium Level 136 mEq/L (136-145)
[2024-10-10 06:31] LABS: Absolute Eosinophils 0.1 K/uL (0-0.5); Absolute Lymphocytes (CBC) 0.6 K/uL (0.7-4.9); Absolute Monocytes 0.2 K/uL (0.1-1.3); Absolute Neutrophil 3.3 K/uL (1.8-8.0); Basophils % 1.1 % (0-1.3); Eosinophils % 1.3 % (0-4.4); Hematocrit 29.8 % (36.0-45.0); Hemoglobin 9.9 g/dL (12.0-15.0); Lymphocytes % 15.3 % (15.3-44.8); MCH 27.9 pg (27.0-35.0); MCHC 33.1 g/dL (32.0-36.0); MCV 84.3 fL (80-100); MPV 7.7 fL (7.6-11.3); Monocytes % 3.9 % (3.3-12.3); Neutrophils % 78.4 % (41.7-73.7); Nucleated Red Blood Cells % 0.2 % (0-0); Platelets 299 thou/uL (152-406); RBC Red Blood Cell Count 3.53 M/uL (3.86-4.86); Red Cell Distribution Width 16.4 % (12.1-15.2)
[2024-10-10 06:39] LABS: PT Prothrombin Time 15.9 SECONDS (10.0-13.0); PTT, Activated Partial Thromb 37.2 SECONDS (24.3-36.9); Protime INR 1.42
[2024-10-10] MEDS ORDERED: propofoL 200 MG/20 ML VIAL IV ONE (07:56)
[2024-10-10] MEDS ORDERED: LIDOCAINE 1% MPF 5 ML VIAL ONE (07:56)
[2024-10-10] MEDS ORDERED: MIDAZOLAM HCL 2 MG/2 ML INJ ONE (07:57)
--- NOTE | 2024-10-10 09:32 | P.BOP ---
Preoperative diagnosis: Femur fracture with bone present in ulcer wound bed Postoperative diagnosis: same Primary procedure: Hip disarticulation with resection of proximal bone Secondary procedure: [id number] Estimated blood loss: <10c Specimen: devitalized tissue Drain(s): Other (wet to dry) Transferred to: Recovery Room Condition: Good
[2024-10-10] MEDS: HYDROMORPHONE HCL 1 MG/ML INJ ONE (09:50)
[2024-10-10 09:59] VITALS: O2SAT 99
[2024-10-10] MEDS: CIPROFLOXACIN 400mg IV 400 MG/200 ML BAG IV SCH (11:00)
[2024-10-10] MEDS: FENTANYL CITR 100 MCG/2 ML IV ONE (11:45)
--- NOTE | 2024-10-10 12:03 | OP ---
Date of Procedure: 10/10/2024 Surgeon: Earl Horvath MD Preoperative Diagnosis: Left hip nonhealing ulcer with protruding femoral bone and underlying femora l fracture. Postoperative Diagnosis: Left hip nonhealing ulcer with protruding femoral bone and underlying femor al fracture. Procedure: Left hip disarticulation with removal of femoral head and proximal femur bone as well as an ostectomy of the most proximal portion of the femur at the fracture site. Estimated Blood Loss: 100 cc. Complications: There were no complications. We will send the fragments to Pathology. Indication For Operation: The patient is a 34-year-old female who unfortunately has spina bifida. S he has been seen by General Surgery multiple times for wounds and was recently admitted to the hospit or as she had some bleeding from a left trochanteric wound. She was taken to the operating room by Mandeep Kilgore. At which time, she was found to have bone which was protruding into the wound bed and a ssociated with the fracture. X-rays demonstrated a comminuted very old femoral fracture and appeared that the bone would make it very difficult to heal the ulceration. She is insensate and risks, bene fits, and alternatives to different methods of treating this were discussed with both Dr. Kilgore as well as the patient and family, and at this time, we will plan on removal of the bone, which was cau sing difficulties with wound healing. They state they understand everything as presented and wished to proceed. Description Of Procedure: The patient was taken to the operating room. She was then placed right si de down on a acuña bag. Her left lower extremity was then prepped and draped as we would for a total hip arthroplasty with the exception of Betadine being used as prep as there is an open wound. After this, jet lavage was used approximately 1 L into the wound, so we could delineate the wound better an d remove some clot. The femur was encountered and a rongeur was used to remove some to allow for bet ter visualization of the location of the femoral head. 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 Very careful dissection w as then done removing soft tissues from the proximal femur as well as the neck and the femoral head w as easily delivered up. There was a very large teres ligament, which was divided and any soft tissue within the acetabulum was removed using a Bovie. After this, it was examined. There does not appea r to be any way to perform a capsular closure and jet lavage was used again to clear this area. Pineda nielsen was then turned more distally where the proximal portion of the fracture is seen with a rather sharp most proximal end. It was essentially uncovered with muscle. The wound was extended to allow for more distal approach and care was taken to remain anterior and lateral with dissection, _ easily placed around the femur at a more proximal area. This was then cut using a saw carefully. It was then smoothed using a small rongeur as well as a rasp with removal of significant amount of stacia ne, which does not appear to move toward the wound. It was again irrigated and a call was made to Dr Julio Kilgore to ensure that this is now out of his wound bed and that he feels that he could continue t o treat the wound in standard fashion. He examined it closely and at this time, the extensions both proximal and distally were closed using heavy nylon sutures. It was then packed with a saline Kerlix , 2 ABD pads were placed as well as fluffs and tape. The patient was then taken to recovery room in good condition. There were no complications. /TENZIN Voice ID: [id number] Report ID: [id number]
[2024-10-10] MEDS: DIPHENHYDRAMINE 50 MG/ML VIAL IV ONE (12:14)
--- NOTE | 2024-10-10 12:32 | PN ---
Subjective: The patient lying in bed. No new acute event. The patient had surgical debridement don e to the left trochanter area. Objective: Vital signs: Reviewed. Lungs: Basal crackles. Heart: S1, S2. Regular. Abdomen: Soft, nontender. Bowel sounds present. Extremities: Left hip surgical wound. Laboratory Data: Shows WBC 4.1, hemoglobin 9.9 post transfusion, platelets 299. Chemistry shows BUN of 4, creatinine 0.25. Wound cultures are growing Pseudomonas aeruginosa. The patient is currently on Cipro and Vanco. Assessment And Plan: Left hip disarticulation with resection of proximal bone done today, stage IV u lcer to the trochanter area infected with Pseudomonas, currently on Cipro. Consider decreasing the d ose of Cipro to 200 mg IV q.12 hours as patient weighs only 73 pounds. Consider stopping vancomycin. Continue supportive care and wound care. Anemia secondary to bleeding. We will continue to monito r patient with signs of infection with WBC and fever trends. NF/MODL Voice ID: [id number] Report ID: [id number]
[2024-10-10] MEDS: METOPROLOL TARTRATE 5 MG/5 ML INJ IV STA (14:05)
[2024-10-10] MEDS: carvediloL 12.5 MG TAB PO SCH (17:04)
[2024-10-10 18:30] LABS: Absolute Eosinophils 0.1 K/uL (0-0.5); Absolute Lymphocytes (CBC) 1.4 K/uL (0.7-4.9); Absolute Monocytes 0.3 K/uL (0.1-1.3); Absolute Neutrophil 3.1 K/uL (1.8-8.0); Basophils % 0.9 % (0-1.3); Eosinophils % 1.3 % (0-4.4); Hematocrit 28.1 % (36.0-45.0); Hemoglobin 9.3 g/dL (12.0-15.0); Lymphocytes % 28.5 % (15.3-44.8); MCH 27.9 pg (27.0-35.0); MCV 84.7 fL (80-100); MPV 7.1 fL (7.6-11.3); Monocytes % 5.4 % (3.3-12.3); Neutrophils % 63.9 % (41.7-73.7); Nucleated Red Blood Cells % 0.6 % (0-0); Platelets 260 thou/uL (152-406); RBC Red Blood Cell Count 3.31 M/uL (3.86-4.86); Red Cell Distribution Width 16.3 % (12.1-15.2)
[2024-10-11] MEDS: ACETAMINOPHEN 325 MG TABLET PO PRN (05:06)
[2024-10-11 06:40] LABS: Absolute Lymphocytes (CBC) 0.8 K/uL (0.7-4.9); Absolute Monocytes 0.2 K/uL (0.1-1.3); Absolute Neutrophil 2.5 K/uL (1.8-8.0); Basophils % 0.9 % (0-1.3); Eosinophils % 0.5 % (0-4.4); Hematocrit 23.4 % (36.0-45.0); Hemoglobin 7.8 g/dL (12.0-15.0); Lymphocytes % 22.6 % (15.3-44.8); MCH 28.1 pg (27.0-35.0); MCHC 33.3 g/dL (32.0-36.0); MCV 84.3 fL (80-100); MPV 7.7 fL (7.6-11.3); Monocytes % 5.2 % (3.3-12.3); Neutrophils % 70.8 % (41.7-73.7); Nucleated Red Blood Cells % 0.1 % (0-0); Platelets 233 thou/uL (152-406); RBC Red Blood Cell Count 2.77 M/uL (3.86-4.86); Red Cell Distribution Width 16.5 % (12.1-15.2)
[2024-10-11 07:17] LABS: Anion Gap 9.9 mEq/L (5.0-15.0); BUN Blood Urea Nitrogen 4 mg/dL (7-18); Bicarbonate 26 mEq/L (21-32); Glucose Level 122 mg/dL (74-106); Potassium 2.9 mEq/L (3.5-5.1); Sodium Level 138 mEq/L (136-145)
[2024-10-11 07:18] LABS: Glomerular Filtration Rate 151 ml/min (=/>90)
--- NOTE | 2024-10-11 07:45 | P.PN ---
Date of Service: 10/10/24 Subjective N.p.o. for surgery to the today, reports chronic back pain, pain controlled with as needed analgesia Review of Systems 10-point ROS is otherwise unremarkable Physical Examination - Vital Signs reviewed - Physical Exam General: Alert, Oriented x3 HEENT: Atraumatic, Normocephalic Neck: Supple Respiratory: Normal air movement, unlabored Cardiovascular: Normal pulses, Regular rate/rhythm Gastrointestinal: Normal bowel sounds, nontender Musculoskeletal: Scoliosis, Other (Diffuse disfigurement) Integumentary: Other (Diffuse) Neurological: Normal speech, Abnormal gait, Abnormal strength - Studies Microbiology Data (last 24 hrs): 10/02/24 16:58 Blood - Blood Aerobic Blood Culture - Final No growth in 5 days. 10/02/24 16:58 Blood - Blood Anaerobic Blood Culture - Final No growth in 5 days. 10/02/24 17:06 Blood - Blood Aerobic Blood Culture - Final No growth in 5 days. 10/02/24 17:06 Blood - Blood Anaerobic Blood Culture - Final No growth in 5 days. Assessment And Plan - Plan Assessment and Plan: 1. Left hip osteomyelitis 2. Femoral fracture -general surgeon, is on board, x-ray of the left hip showed ?fracture, MRI pending -Continue empiric IV antibiotics -Await further recommendation from general surgeon regarding possible debridement - ID consult. -Orthopedic consulted (Left hip disarticulation with removal of femoral head and proximal femur bone as well as an ostectomy of the most proximal portion of the femur at the fracture site) 3. Chronic blood loss anemia, from bleeding at the left hip -Hemoglobin of 6.4 on admission - transfused 2 units of PRBCs -HemoGlobin better after blood transfusion 4. Functional quadriplegia secondary to spina bifida 5. scoliosis, with chronic back pain -procurement services manager consulted for adjustment of personal wheelchair -Resume home health care after discharge 6. Hypokalemia: Trend electrolytes, replace as needed DVT prophylaxis-SCDs - Code Status/Comfort Care Code Status: Full Code Critical Care: No Time Spent Managing PTS Care (In Minutes): 35 <Linnea Mata - Last Filed: 10/11/24 07:46> Chart has been reviewed. Events of the last 24 hours have been noted. Case discussed with [facility]. I performed a substantial part of the MDM during this patient's care today. I personally made or approved the documented management plan and acknowledge its risk of complications. I agree with the findings and documentation provided in the [facility]'s notes <Fern Ivory - Last Filed: 10/14/24 05:55>
[2024-10-11] MEDS: KCL 20 MEQ/100 mL IVPB 20 MEQ/100 ML BAG IV SCH (09:36)
[2024-10-11] MEDS: HYDROMORPHONE HCL 0.5 MG/0.5 ML INJ IV ONE (13:33)
[2024-10-11] MEDS: Oxycodone HCl/Acetaminophen 5/325 MG TAB PO PRN (13:47)
--- NOTE | 2024-10-11 14:47 | PN ---
Date of Progress Note: 10/11/2024 Diagnosis: Ischium ulcer. Subjective: The patient doing better. She has good attitude. Intact surgical site. Dressings had to be reinforced today. Plan: Follow up H and H, and when things improve, we are going to use wound VAC. In the meantime, w e are going to do just iodoform packing half or one inch. ADITHYA/TENZIN Voice ID: [id number] Report ID: [id number]
[2024-10-11 15:54] LABS: Absolute Lymphocytes (CBC) 0.6 K/uL (0.7-4.9); Absolute Monocytes 0.2 K/uL (0.1-1.3); Absolute Neutrophil 2.8 K/uL (1.8-8.0); Basophils % 0.6 % (0-1.3); Eosinophils % 0.6 % (0-4.4); Hematocrit 26.1 % (36.0-45.0); Hemoglobin 8.3 g/dL (12.0-15.0); Lymphocytes % 15.9 % (15.3-44.8); MCH 27.5 pg (27.0-35.0); MCHC 31.9 g/dL (32.0-36.0); MPV 7.1 fL (7.6-11.3); Monocytes % 4.4 % (3.3-12.3); Neutrophils % 78.5 % (41.7-73.7); Nucleated Red Blood Cells % 0.1 % (0-0); Platelets 252 thou/uL (152-406); RBC Red Blood Cell Count 3.03 M/uL (3.86-4.86); Red Cell Distribution Width 16.7 % (12.1-15.2)
[2024-10-11 18:23] LABS: Anion Gap 11.9 mEq/L (5.0-15.0); Magnesium 1.8 mg/dL (1.6-2.4); Phosphorus 2.2 mg/dL (2.5-4.9); Potassium 4.9 mEq/L (3.5-5.1)
[2024-10-12 07:05] LABS: Absolute Eosinophils 0.1 K/uL (0-0.5); Absolute Lymphocytes (CBC) 0.7 K/uL (0.7-4.9); Absolute Monocytes 0.1 K/uL (0.1-1.3); Absolute Neutrophil 1.7 K/uL (1.8-8.0); Basophils % 0.8 % (0-1.3); Eosinophils % 2.8 % (0-4.4); Hematocrit 34.3 % (36.0-45.0); Lymphocytes % 26.9 % (15.3-44.8); MCH 27.2 pg (27.0-35.0); MCHC 32.1 g/dL (32.0-36.0); MCV 84.7 fL (80-100); MPV 7.5 fL (7.6-11.3); Monocytes % 4.6 % (3.3-12.3); Neutrophils % 64.9 % (41.7-73.7); Platelets 179 thou/uL (152-406); RBC Red Blood Cell Count 4.05 M/uL (3.86-4.86); Red Cell Distribution Width 16.8 % (12.1-15.2)
[2024-10-12 07:13] LABS: Anion Gap 9.5 mEq/L (5.0-15.0); BUN Blood Urea Nitrogen 5 mg/dL (7-18); Bicarbonate 26 mEq/L (21-32); Glucose Level 101 mg/dL (74-106); Magnesium 1.9 mg/dL (1.6-2.4); Phosphorus 3.3 mg/dL (2.5-4.9); Potassium 3.5 mEq/L (3.5-5.1); Sodium Level 138 mEq/L (136-145)
[2024-10-12 07:16] LABS: Glomerular Filtration Rate 151 ml/min (=/>90)
--- NOTE | 2024-10-12 08:19 | P.PN ---
Date of Service: 10/11/24 Subjective Pain control as needed analgesia, licensed master social worker consulted for discharge planning, modification for wheelchair. Plan for resume home health Review of Systems 10-point ROS is otherwise unremarkable Physical Examination - Vital Signs reviewed - Physical Exam General: Alert, Oriented x3, afebrile HEENT: Atraumatic, Normocephalic Neck: Supple Respiratory: Normal air movement, equal, unlabored Cardiovascular: Normal pulses, Regular rate/rhythm, S1-S2 Gastrointestinal: Normal bowel sounds, nontender Musculoskeletal: Scoliosis, Other (Diffuse disfigurement) Integumentary: Other sacral nonhealing wound, status post I&D,, dry dressing intact Neurological: Normal speech, Abnormal gait, Abnormal strength - Studies Microbiology Data (last 24 hrs): 10/02/24 16:58 Blood - Blood Aerobic Blood Culture - Final No growth in 5 days. 10/02/24 16:58 Blood - Blood Anaerobic Blood Culture - Final No growth in 5 days. 10/02/24 17:06 Blood - Blood Aerobic Blood Culture - Final No growth in 5 days. 10/02/24 17:06 Blood - Blood Anaerobic Blood Culture - Final No growth in 5 days. Assessment And Plan - Plan Assessment and Plan: 1. Left hip osteomyelitis improved 2. Femoral fracture -general surgeon, is on board, x-ray of the left hip showed ?fracture, MRI pending -Continue empiric IV antibiotics -Await further recommendation from general surgeon regarding possible debridement - ID consult. -Orthopedic consulted (Left hip disarticulation with removal of femoral head and proximal femur bone as well as an ostectomy of the most proximal portion of the femur at the fracture site) 3. Chronic blood loss anemia, from bleeding at the left hip -Hemoglobin of 6.4 on admission - transfused 2 units of PRBCs -HemoGlobin better after blood transfusion 4. Functional quadriplegia secondary to spina bifida 5. scoliosis, with chronic back pain -clinical services specialist consulted for adjustment of personal wheelchair -Resume home health care after discharge 6. Hypokalemia: Trend electrolytes, replace as needed DVT prophylaxis-SCDs - Code Status/Comfort Care Code Status: Full Code Critical Care: No Time Spent Managing PTS Care (In Minutes): 35 <Linnea Mata - Last Filed: 10/12/24 08:20> Chart has been reviewed. Events of the last 24 hours have been noted. Case discussed with [facility]. I performed a substantial part of the MDM during this patient's care today. I personally made or approved the documented management plan and acknowledge its risk of complications. I agree with the findings and documentation provided in the [facility]'s notes <Fern Ivory - Last Filed: 10/14/24 05:55>
--- NOTE | 2024-10-12 08:22 | P.PN ---
Date of Service: 10/12/24 Subjective Pain control as needed analgesia, director social consulted for discharge planning, modification for wheelchair. Plan for resume home health after discharge Hemoglobin stable, Review of Systems 10-point ROS is otherwise unremarkable Physical Examination - Vital Signs reviewed - Physical Exam General: Alert, Oriented x3, afebrile HEENT: Atraumatic, Normocephalic Neck: Supple, no JVD Respiratory: Normal air movement, equal, unlabored, Cardiovascular: Normal pulses, RRR Gastrointestinal: Normal bowel sounds, nontender Musculoskeletal: Scoliosis, Other (Diffuse disfigurement) Integumentary: Other sacral nonhealing wound, status post I&D,, dry dressing intact Neurological: Normal speech, Abnormal gait, Abnormal strength - Studies Microbiology Data (last 24 hrs): 10/02/24 16:58 Blood - Blood Aerobic Blood Culture - Final No growth in 5 days. 10/02/24 16:58 Blood - Blood Anaerobic Blood Culture - Final No growth in 5 days. 10/02/24 17:06 Blood - Blood Aerobic Blood Culture - Final No growth in 5 days. 10/02/24 17:06 Blood - Blood Anaerobic Blood Culture - Final No growth in 5 days. Assessment And Plan - Plan Assessment and Plan: 1. Left hip osteomyelitis improved 2. Femoral fracture -status post removal of the femoral head by Dr. Horvath -general surgeon, is on board, x-ray of the left hip showed ?fracture, MRI pending -Continue empiric IV antibiotics -Await further recommendation from general surgeon regarding possible debridement - ID consult. -Orthopedic consulted (Left hip disarticulation with removal of femoral head and proximal femur bone as well as an ostectomy of the most proximal portion of the femur at the fracture site) -special services director consulted for resumption of home health, wound care, wheelchair modification at discharge -3-3 wound cultures Pseudomonas, -Blood cultures-no growth 3. Chronic blood loss anemia, from bleeding at the left hip -Hemoglobin of 6.4 on admission - transfused 2 units of PRBCs -HemoGlobin better after blood transfusion -Stable HH 4. Functional quadriplegia secondary to spina bifida 5. scoliosis, with chronic back pain -special services director consulted for adjustment of personal wheelchair -Resume home health care after discharge 6. Hypokalemia: improved Trend electrolytes, replace as needed DVT prophylaxis-SCDs - Code Status/Comfort Care Code Status: Full Code Critical Care: No Time Spent Managing PTS Care (In Minutes): 30 <Linnea Mata - Last Filed: 10/12/24 16:53> Chart has been reviewed. Events of the last 24 hours have been noted. Case discussed with [facility]. I performed a substantial part of the MDM during this patient's care today. I personally made or approved the documented management plan and acknowledge its risk of complications. I agree with the findings and documentation provided in the [facility]'s notes <Fern Ivory - Last Filed: 10/14/24 05:55>
[2024-10-12 08:50] LABS: Blood Morphology Comment NOTED (NOT SEEN); Platelet Estimate ADEQ; White Blood Cell Scan OK (OK)
[2024-10-12 08:53] LABS: Anisocytosis SLIGHT
[2024-10-13 00:34] VITALS: BMI 15.5
--- NOTE | 2024-10-13 01:27 | P.PN ---
Date of Service: 10/06/24 Subjective PATIENT DENIES ANY NEW COMPLAINTS. AWAITING FOR BRACE TO BE PLACED. Physical Examination - Vital Signs REVIEWED - Physical Exam General: Alert, Oriented x3 Respiratory: Normal air movement, Diminished Cardiovascular: Normal pulses, Regular rate/rhythm Gastrointestinal: Normal bowel sounds, Soft and benign Musculoskeletal: Scoliosis, Other (Diffuse disfigurement) Integumentary: Other (Diffuse) Neurological: NO FOCAL DEFICITS Assessment And Plan - Assessment/Plan Assessment and Plan: 1. Left hip osteomyelitis -Scheduled for debridement and inspection of active bleeding; may need orthopedic consultation. 2. Chronic blood loss anemia, from bleeding at the left hip Continue monitoring H&H and transfuse in the 3. Functional quadriplegia secondary to spina bifida patient uses a scooter for traveling 4. Hypokalemia: Replace and monitor. DVT prophylaxis-SCDs - Code Status/Comfort Care Code Status: Full Code Critical Care: No Time Spent Managing PTS Care (In Minutes): 35
--- NOTE | 2024-10-13 01:29 | P.PN ---
Date of Service: 10/07/24 Subjective Patient continues to improve. Scheduled for surgery on Sunday. It will be removed.. Physical Examination - Vital Signs REVIEWED - Physical Exam General: Alert, Oriented x3 Respiratory: Normal air movement, Diminished Cardiovascular: Normal pulses, Regular rate/rhythm Gastrointestinal: Normal bowel sounds, Soft and benign Musculoskeletal: Scoliosis, Other (Diffuse disfigurement) Integumentary: Other (Diffuse) Neurological: NO FOCAL DEFICITS Assessment And Plan - Assessment/Plan Assessment and Plan: 1. Left hip osteomyelitis -Scheduled for removal of hip joint; will need orthopedic consultation. 2. Chronic blood loss anemia, from bleeding at the left hip Continue monitoring H&H and transfuse in the 3. Functional quadriplegia secondary to spina bifida patient uses a scooter for traveling 4. Hypokalemia: Replace and monitor. DVT prophylaxis-SCDs - Code Status/Comfort Care Code Status: Full Code Critical Care: No Time Spent Managing PTS Care (In Minutes): 35
[2024-10-13 06:17] LABS: Absolute Eosinophils 0.1 K/uL (0-0.5); Absolute Monocytes 0.2 K/uL (0.1-1.3); Absolute Neutrophil 1.8 K/uL (1.8-8.0); Basophils % 0.9 % (0-1.3); Eosinophils % 2.7 % (0-4.4); Hematocrit 22.8 % (36.0-45.0); Hemoglobin 7.6 g/dL (12.0-15.0); Lymphocytes % 32.7 % (15.3-44.8); MCHC 33.4 g/dL (32.0-36.0); MCV 84.1 fL (80-100); MPV 7.7 fL (7.6-11.3); Monocytes % 7.3 % (3.3-12.3); Neutrophils % 56.4 % (41.7-73.7); Nucleated Red Blood Cells % 0.2 % (0-0); Platelets 230 thou/uL (152-406); RBC Red Blood Cell Count 2.71 M/uL (3.86-4.86); Red Cell Distribution Width 16.4 % (12.1-15.2)
[2024-10-13 06:22] LABS: BUN Blood Urea Nitrogen 5 mg/dL (7-18); Bicarbonate 25 mEq/L (21-32); Glucose Level 101 mg/dL (74-106); Magnesium 1.7 mg/dL (1.6-2.4); Phosphorus 4.1 mg/dL (2.5-4.9); Sodium Level 138 mEq/L (136-145)
[2024-10-13 06:23] LABS: Glomerular Filtration Rate 151 ml/min (=/>90)
--- NOTE | 2024-10-13 14:24 | PN ---
Subjective: The patient lying in bed. No new acute event. Chart reviewed. Objective: Vital signs: Reviewed. Lungs: Basal crackles. Heart: S1, S2. Regular. Abdomen: Soft, nontender. Bowel sounds present. Extremity: Wound noted. Laboratory Data: Shows WBC 3.2, hemoglobin 7.6, platelets are 230. Chemistry shows BUN of 5, creati nine 0.2. Wound cultures growing Pseudomonas aeruginosa. Assessment And Plan: Status post surgical removal of femur head and proximal femur. The patient con tinues to drop in her hemoglobin. We will continue to monitor. Wound care per surgical team. Joshua nue Cipro for total of 2 weeks. Stage IV left trochanter wound as patient insist on lying on her lef t side. Continue to monitor signs of infection with WBC and fever trends. NF/MODL Voice ID: [id number] Report ID: [id number]
[2024-10-13 16:34] LABS: Absolute Eosinophils 0.1 K/uL (0-0.5); Absolute Lymphocytes (CBC) 1.1 K/uL (0.7-4.9); Absolute Monocytes 0.3 K/uL (0.1-1.3); Absolute Neutrophil 3.1 K/uL (1.8-8.0); Basophils % 0.3 % (0-1.3); Eosinophils % 2.1 % (0-4.4); Hematocrit 25.6 % (36.0-45.0); Hemoglobin 8.5 g/dL (12.0-15.0); Lymphocytes % 24.5 % (15.3-44.8); MCH 28.4 pg (27.0-35.0); MCV 86.1 fL (80-100); Monocytes % 5.6 % (3.3-12.3); Neutrophils % 67.5 % (41.7-73.7); Nucleated Red Blood Cells % 0.2 % (0-0); Platelets 285 thou/uL (152-406); RBC Red Blood Cell Count 2.97 M/uL (3.86-4.86); Red Cell Distribution Width 16.8 % (12.1-15.2)
--- NOTE | 2024-10-14 05:55 | P.PN ---
Date of Service: 10/13/24 Subjective Patient continues to do well. Clinical symptoms are improving. Patient is a 34-year-old female with a history of spina bifida with secondary hip fracture with bone fragmentation with secondary bleeding. Patient was seen by orthopedics and the hip joint was removed. Patient is try to get a device installed on her walker prior to discharge. General surgery also wanted IV antibiotics and infectious disease recommended ciprofloxacin for 2 weeks. Patient will continue with wound care at home along with wound healing center referral. Physical Examination - Vital Signs Reviewed - Physical Exam General: Alert, Oriented x3 Respiratory: Normal air movement, Diminished Cardiovascular: Normal pulses, Regular rate/rhythm Gastrointestinal: Normal bowel sounds, Soft and benign Musculoskeletal: Scoliosis, Other (Diffuse disfigurement) Integumentary: Dressing to the left hip in place Neurological: NO FOCAL DEFICITS Assessment And Plan - Assessment/Plan Assessment and Plan: 1. Left hip osteomyelitis with acute bleeding; Status post removal of the hip joint -Scheduled for removal of hip joint; Appreciate general surgery and orthopedic consultation. Continue with outpatient IV antibiotics with ciprofloxacin as patient grew out Pseudomonas. General surgery is going to follow the patient had wound healing and they wanted IV antibiotics. Bioavailability for quinolone s tends to be about the same as oral and IV so we could do either or. Will confirm with infectious disease. 2. Chronic blood loss anemia, from bleeding at the left hip Continue monitoring H&H and transfuse; Hemoglobin has stabilized after surgery. Will continue to monitor closely 3. Functional quadriplegia secondary to spina bifida Patient uses a scooter for traveling; Case management has made arrangements for [employer] to follow patient and make adjustments to the scooter as needed 4. Hypokalemia: Replace and monitor. DVT prophylaxis-SCDs - Code Status/Comfort Care Code Status: Full Code Critical Care: No Time Spent Managing PTS Care (In Minutes): 35
[2024-10-14 06:21] LABS: Absolute Eosinophils 0.1 K/uL (0-0.5); Absolute Lymphocytes (CBC) 1.1 K/uL (0.7-4.9); Absolute Monocytes 0.3 K/uL (0.1-1.3); Absolute Neutrophil 3.9 K/uL (1.8-8.0); Basophils % 0.7 % (0-1.3); Eosinophils % 1.4 % (0-4.4); Hematocrit 22.5 % (36.0-45.0); Hemoglobin 7.5 g/dL (12.0-15.0); Lymphocytes % 20.4 % (15.3-44.8); MCHC 33.2 g/dL (32.0-36.0); MCV 84.2 fL (80-100); MPV 7.5 fL (7.6-11.3); Monocytes % 5.9 % (3.3-12.3); Neutrophils % 71.6 % (41.7-73.7); Nucleated Red Blood Cells % 0.1 % (0-0); Platelets 281 thou/uL (152-406); RBC Red Blood Cell Count 2.68 M/uL (3.86-4.86); Red Cell Distribution Width 16.4 % (12.1-15.2)
[2024-10-14 06:31] LABS: PT Prothrombin Time 16.2 SECONDS (10-13.0); PTT, Activated Partial Thromb 35.1 SECONDS (27.2-37.4); Protime INR 1.45
[2024-10-14 06:33] LABS: Anion Gap 10.1 mEq/L (5.0-15.0); BUN Blood Urea Nitrogen 7 mg/dL (7-18); Bicarbonate 25 mEq/L (21-32); Glucose Level 117 mg/dL (74-106); Magnesium 1.8 mg/dL (1.6-2.4); Phosphorus 2.9 mg/dL (2.5-4.9); Potassium 3.1 mEq/L (3.5-5.1); Sodium Level 136 mEq/L (136-145)
[2024-10-14 06:46] LABS: Glomerular Filtration Rate 151 ml/min (=/>90)
[2024-10-14] MEDS: POTASSIUM CL SA 10 MEQ TAB PO ONE (10:07)
[2024-10-14] MEDS: MAGNESIUM SULFATE 1 gm IVPB 1 GM/100 ML BAG IV ONE (10:07)
[2024-10-14 11:32] VITALS: BP 107/61; TEMP 98.9
--- NOTE | 2024-10-14 12:24 | PN ---
Subjective: The patient is lying in bed. No new acute event. Chart reviewed. Objective: Vital Signs: Reviewed. Lungs: Basal crackles. Heart: S1, S2. Regular. Abdomen: Soft, nontender. Bowel sounds present. Extremities: Trace edema. Laboratory Data: WBC 5.4, hemoglobin 7.5, platelets 281. Chemistry shows BUN of 7, creatinine 0.2. Medications: Currently, patient is on Cipro. Assessment And Plan: Left trochanter stage IV wound, status post surgical removal of left femur head and neck region. The patient continued to have low hemoglobin. Consider having a followup by surgi jose team for evaluation of bleeding. Pseudomonas aeruginosa infection of the left hip, status post r emoval of the infected bone. Continue current treatment. We will follow the patient as needed. NF/MODL Voice ID: [id number] Report ID: [id number]
[2024-10-14] MEDS: HEPARIN 500 UNIT/5 ML SYR IV ONE (14:54)
--- NOTE | 2024-10-14 18:47 | P.DS ---
Admission Date: 10/02/24 Discharge Date: 10/14/24 Reason for Admission: Bleeding wound cellulitis Brief History of Present Illness: Diagnosis Left hip osteomyelitis with acute bleeding; Status post removal of the hip joint Chronic blood loss anemia, from bleeding at the left hip Functional quadriplegia secondary to spina bifida scoliosis, with chronic back pain Hypokalemia: improved HPI 10/02/24 Patient is a 34-year-old female with a past medical history of spina bifida and sacral wounds. Patient sent from wound care clinic for evaluation of uncontrolled bleeding. She has bleeding from her wounds that is manifested by oozing. This has been getting worse. She has had debridement in the past by Dr. Sykes. Associated symptoms include low-grade fever. She is here for surgical evaluation, possibly debridement by general surgery. Dr. Kilgore has been contacted. Hospital Course: Patient was admitted and treated for the following diagnoses. Left hip osteomyelitis with acute bleeding; Status post removal of the hip joint -Orthopedic surgery on 10/10/24 -infection disease recommends ciprofloxacin x 2 weeks Chronic blood loss anemia, from bleeding at the left hip H&H stable Functional quadriplegia secondary to spina bifida scoliosis, with chronic back pain Patient uses a scooter for traveling; Case management has made arrangements for [facility] to follow patient and make adjustments to the scooter as needed Hypokalemia Replaced and monitored On 10/14/24, Shari was seen on morning rounds hemodynamically stable, Dr. Horvath, Dr. Kilgore, and Dr. Ibarra have cleared her for discharge. She will need to followup with Dr. Kilgore for continued wound care, Dr. Horvath for further treatment, and PCP for conitnued monitoring outpatient. Physical Exam General: Alert and Oriented x3, NAD Respiratory: Normal air movement, nonlabored breathing Cardiovascular: Normal pulses, mild tachycardia Gastrointestinal: Normal bowel sounds, Soft and benign on palpation Musculoskeletal: Scoliosis, Other (Diffuse disfigurement) Integumentary: Dressing to the left hip CDI Neurological: NO FOCAL DEFICITS Left hip osteomyelitis with acute bleeding; Status post removal of the hip joint Chronic blood loss anemia, from bleeding at the left hip Functional quadriplegia secondary to spina bifida scoliosis, with chronic back pain Hypokalemia: improved <Esther Pettit - Last Filed: 10/14/24 18:40> Admission Date: 10/02/24 Discharge Date: 10/14/24 Hospital Course: I have personally seen and evaluated the patient. I have reviewed the history, physical exam findings, and assessment provided by Lukasz Pettit NP. I agree with the plan of care as documented <Radhames Beltran - Last Filed: 10/14/24 23:45> Disposition: ROUTINE DISCHARGE Discharge Condition: GOOD Vital Signs/Physical Exam: Temp Pulse Resp BP Pulse Ox 98.9 F 96 H 15 107/61 99 10/14/24 11:32 10/14/24 14:00 10/14/24 14:16 10/14/24 14:00 10/14/24 14:16 Laboratory Data at Discharge: WBC 5.40 thou/uL (4.3-10.9) 10/14/24 06:05 Hgb 7.5 g/dL (12.0-15.0) L D 10/14/24 06:05 Hct 22.5 % (36.0-45.0) L 10/14/24 06:05 Plt Count 281 thou/uL (152-406) 10/14/24 06:05 PT 16.2 SECONDS (10-13.0) H 10/14/24 06:05 INR 1.45 10/14/24 06:05 APTT 35.1 SECONDS (27.2-37.4) 10/14/24 06:05 Sodium 136 mEq/L (136-145) 10/14/24 06:05 Potassium 3.1 mEq/L (3.5-5.1) L 10/14/24 06:05 BUN 7 mg/dL (7-18) 10/14/24 06:05 Creatinine < 0.25 mg/dL (0.55-1.02) L 10/14/24 06:05 Glucose 117 mg/dL (74-106) H 10/14/24 06:05 Phosphorus 2.9 mg/dL (2.5-4.9) 10/14/24 06:05 Magnesium 1.8 mg/dL (1.6-2.4) 10/14/24 06:05 Total Bilirubin Cancelled 10/14/24 06:00 AST Cancelled 10/14/24 06:00 ALT Cancelled 10/14/24 06:00 Alkaline Phosphatase Cancelled 10/14/24 06:00 Triglycerides 100 mg/dL (<150) 10/03/24 04:16 Cholesterol 93 mg/dL (<200) 10/03/24 04:16 HDL Cholesterol 40 mg/dL (40-60) 10/03/24 04:16 Cholesterol/HDL Ratio 2.33 10/03/24 04:16 <Esther Pettit - Last Filed: 10/14/24 18:40> Vital Signs/Physical Exam: Temp Pulse Resp BP Pulse Ox 98.9 F 96 H 15 107/61 99 10/14/24 11:32 10/14/24 14:00 10/14/24 14:16 10/14/24 14:00 10/14/24 14:16 Laboratory Data at Discharge: WBC 5.40 thou/uL (4.3-10.9) 10/14/24 06:05 Hgb 7.5 g/dL (12.0-15.0) L D 10/14/24 06:05 Hct 22.5 % (36.0-45.0) L 10/14/24 06:05 Plt Count 281 thou/uL (152-406) 10/14/24 06:05 PT 16.2 SECONDS (10-13.0) H 10/14/24 06:05 INR 1.45 10/14/24 06:05 APTT 35.1 SECONDS (27.2-37.4) 10/14/24 06:05 Sodium 136 mEq/L (136-145) 10/14/24 06:05 Potassium 3.1 mEq/L (3.5-5.1) L 10/14/24 06:05 BUN 7 mg/dL (7-18) 10/14/24 06:05 Creatinine < 0.25 mg/dL (0.55-1.02) L 10/14/24 06:05 Glucose 117 mg/dL (74-106) H 10/14/24 06:05 Phosphorus 2.9 mg/dL (2.5-4.9) 10/14/24 06:05 Magnesium 1.8 mg/dL (1.6-2.4) 10/14/24 06:05 Total Bilirubin Cancelled 10/14/24 06:00 AST Cancelled 10/14/24 06:00 ALT Cancelled 10/14/24 06:00 Alkaline Phosphatase Cancelled 10/14/24 06:00 Triglycerides 100 mg/dL (<150) 10/03/24 04:16 Cholesterol 93 mg/dL (<200) 10/03/24 04:16 HDL Cholesterol 40 mg/dL (40-60) 10/03/24 04:16 Cholesterol/HDL Ratio 2.33 10/03/24 04:16 <Radhames Beltran - Last Filed: 10/14/24 23:45> Diet: Regular Activity: Fall precautions <Esther Pettit - Last Filed: 10/14/24 18:40> <Radhames Beltran - Last Filed: 10/14/24 23:45> Home Medications: Oxycodone HCl/Acetaminophen [Oxycodone-Acetaminophen 10-325] 10 - 325 mg PO Q6HP PRN 10/06/22 Carvedilol [Coreg] 12.5 mg PO TID 10/10/24 Ensure Enlive 237 ml PO BID #60 can 10/13/24 Hans [Hans*] 1 pkt PO BID #60 packet 10/13/24 Ciprofloxacin HCl [Cipro 500 MG Tablet] 500 mg PO BID 14 Days #28 tab 10/14/24 New Medications: Ciprofloxacin HCl [Cipro 500 MG Tablet] 500 mg PO BID 14 Days #28 tab Ensure Enlive 237 ml PO BID #60 can Hans [Hans*] 1 pkt PO BID #60 packet Physician Discharge Instructions: -DC IV and DC home -Follow-up with PCP in 1 to 2 weeks -Follow-up with General surgeon in 1 to 2 weeks -Please call Dr. Ivory at [phone] if any questions regarding hospital stay -Please call nursing station at [phone] if any nursing or medication questions -Return to the emergency room if symptoms worsen Followup: Saúl Kilgore MD [ACTIVE - CAN ADMIT] - 10/17/24 ([facility]- [phone]) Nidia Mason MD [Primary Care Provider] - 1-2 Weeks
== END 2024-10-14 15:40 | disposition home or self-care (01) | DRG 463 ==
LOC: ER 13:29 → ERHOLD 18:31 → 2ND 10-03 16:11
PROVIDERS: ADMIT Internal Medicine; ATTEND Family Medicine
PROC: 30233N1 Transfusion of Nonautologous Red Blood Cells into Peripheral Vein, Percutaneous Approach (ICD-10-PCS; 2024-10-02)
PROC: 0QB30ZZ Excision of Left Pelvic Bone, Open Approach (ICD-10-PCS; principal; 2024-10-06 14:30)
PROC: 0SPB0JZ Removal of Synthetic Substitute from Left Hip Joint, Open Approach (ICD-10-PCS; 2024-10-10)
PROC: 0Y680ZZ Detachment at Left Femoral Region, Open Approach (ICD-10-PCS; 2024-10-10)
PROC: 0QB70ZZ Excision of Left Upper Femur, Open Approach (ICD-10-PCS; 2024-10-10)
DX: M86.18 Other acute osteomyelitis, other site (principal); L89.224 Pressure ulcer of left hip, stage 4; R53.2 Functional quadriplegia; S72.002A Fracture of unspecified part of neck of left femur, initial encounter for closed fracture; D62 Acute posthemorrhagic anemia; M86.152 Other acute osteomyelitis, left femur; I10 Essential (primary) hypertension; E87.6 Hypokalemia; Q05.9 Spina bifida, unspecified; D64.9 Anemia, unspecified; G89.29 Other chronic pain; M54.9 Dorsalgia, unspecified; K21.9 Gastro-esophageal reflux disease without esophagitis; B96.5 Pseudomonas (aeruginosa) (mallei) (pseudomallei) as the cause of diseases classified elsewhere; Z88.2 Allergy status to sulfonamides; Z91.040 Latex allergy status; Z28.310 Unvaccinated for COVID-19; Z89.411 Acquired absence of right great toe
CPT/HCPCS: 36415; 80048; 80053; 80061; 80202; 81003; 82947; 83605; 83735; 84100; 84145; 85014; 85018; 85025; 85610; 85730; 86850; 86900; 86901; 86920; 87040; 87070; 87075; 87077; 87186; 87205; 88304; 88305; 88311; 96365; 96366; 96368; 99285; J0692; J0744; J1171; J1200; J1642; J1650; J2003; J2250; J2704; J3010; J3370; J3475; J3480; J7030; J7050; P9016